=== PATIENT | male | born 1950 | race Caucasian/White ===

== ENCOUNTER 2023-10-27 19:11 | Emergency (ER) | payer MEDICARE, OTHER, SELFPAY ==
[2023-10-27 19:20] VITALS: BP 126/92; PULSE 106; RESP 20; TEMP 37.7; O2SAT 98; BMI 37.3
--- NOTE | 2023-10-27 19:31 | XR_ITS ---
The [address] [address] Patient Name: ZEFERINO GOTTLIEB MRN: [id number] date: 1950 Sex: M Assigned Patient Location: ER Current Patient Location: ER Accession/Order Number: [id number] Exam Date: 10/27/2023 19:40 Report Date: 10/27/2023 20:15 At the request of: MONROE MARKER Procedure: XR chest 2V EXAM: XR chest 2V HISTORY: fever, cough COMPARISON: Chest x-ray 06/18/2021 TECHNIQUE: PA and lateral chest FINDINGS: No pneumothorax. Loculated right apical effusion with scarring at the right lung base. Similar appearance of a hilar mass on the right. Linear opacity in the left upper lobe may reflect atelectasis or infectious process. Normal heart size. No acute osseous abnormality. Postsurgical changes of the cervical spine. XR/XR chest 2V IMPRESSION: Previously described perihilar mass seen on the right with improved aeration from prior exam. Consider chest CT for further evaluation. A superimposed right mid lung consolidative process cannot be excluded at this location. Small loculated effusion on the right. Linear opacity of the left upper lobe may reflect atelectasis with infection or mass not excluded. Electronically authenticated by: MAGNO ANNA Date: 10/27/2023 20:15
--- NOTE | 2023-10-27 19:32 | ED.URI1 ---
HPI - URI/Sore Throat General Chief Complaint: Upper Respiratory Infection Stated Complaint: respiratory, fever Time Seen by Provider: 10/27/23 19:15 Source: patient and family Limitations: no limitations History of Present Illness HPI Narrative: This 72-year-old male who completed treatment for lung cancer approximately one year ago presents for evaluation of one day of fever, cough, nasal congestion. He also has body aches. He has not had any nausea vomiting or diarrhea. He denies any anny chest pain or shortness of breath. He has had the Covid 19 vaccinations but has not had the last booster shot. He recently had the respiratory syncytial virus vaccine and influenza vaccine as well. The patient's states that her brother has respiratory syncytial virus. The patient's symptoms started yesterday. Use Tylenol and Motrin earlier today for his fever and body aches. He has a former history of smoking but is not a current tobacco user. Related Data Home Medications Medication Instructions Recorded Confirmed carvedilol 3.125 mg tablet 3.125 mg PO BID 10/27/23 10/27/23 hydrochlorothiazide 25 mg tablet 25 mg PO DAILY 10/27/23 10/27/23 losartan 25 mg tablet 25 mg PO DAILY 10/27/23 10/27/23 potassium chloride 20 mEq 20 meq PO DAILY 10/27/23 10/27/23 tablet,extended release(part/cryst) (Klor-Con M) simvastatin 80 mg tablet 80 mg PO DAILY 10/27/23 10/27/23 Allergies Allergy/AdvReac Type Severity Reaction Status Date / Time No Known Drug Allergies Allergy Verified 10/27/23 19:20 Review of Systems ROS Status of ROS 10 or more systems reviewed and unremarkable except as noted in history and below [facility] Social History Smoking status: Former smoker Exam Narrative Exam Narrative: Nurses note and vital signs reviewed and patient is not hypoxic. He is mildly tachycardic with a pulse of 106 and has a low-grade fever at 99.8 General: The patient appears well and in no apparent distress. Patient is resting comfortably on cart. He is speaking in complete sentences. No respiratory distress Skin: Warm, dry, no pallor noted. There is no rash noted. Head: Normocephalic, atraumatic Eye: Normal conjunctiva, no drainage, EOMI. PERRL Ears, Nose, Mouth, and Throat: oral mucosa is moist. Nares patent. Mouth without vesicles, No posterior pharyngeal swelling Neck: Supple, no meningeal signs Cardiovascular: Regular Rate and Rhythm S1 S2, no murmurs, rubs or gallops Respiratory: Patient is in no distress, no accessory muscle use, Coarse breath sounds without rhonchi or rales appreciated no wheezing or accessory muscle usse noted, patient is speaking complete sentences, he is not hypoxic with pulse ox of 98 percent on room air Back: non-tender, no CVA tenderness bilaterally to percussion. GI: Normal bowel sounds, no tenderness to palpation, no masses appreciated. No rebound, guarding, or rigidity noted. Musculoskeletal: The patient has no evidence of calf tenderness, no pitting edema, symmetrical pulses noted bilaterally Neurological: A&O x4, normal speech Psychiatric: Cooperative Constitutional Vital Signs, click to edit/add: Last Vital Signs Temp 99.8 F 10/27/23 19:20 Pulse 106 H 10/27/23 19:20 Resp 20 10/27/23 19:20 BP 126/92 H 10/27/23 19:20 Pulse Ox 95 10/27/23 20:55 O2 Del Method Room Air 10/27/23 20:55 Course Vital Signs Vital signs: Vital Signs Temperature 99.8 F 10/27/23 19:20 Pulse Rate 106 H 10/27/23 19:20 Respiratory Rate 20 10/27/23 19:20 Blood Pressure 126/92 H 10/27/23 19:20 Pulse Oximetry 98 10/27/23 19:20 Oxygen Delivery Method Room Air 10/27/23 19:20 Temperature 99.8 F 10/27/23 19:20 Pulse Rate 106 H 10/27/23 19:20 Respiratory Rate 20 10/27/23 19:20 Blood Pressure 126/92 H 10/27/23 19:20 Pulse Oximetry 95 10/27/23 20:55 Oxygen Delivery Method Room Air 10/27/23 20:55 MDM - URI/Sore Throat MDM Narrative Medical decision making narrative: 72-year-old male with a history of lung cancer status post radiation and chemotherapy presents for evaluation of one day of fevers, chills, body aches and a cough with white phlegm. He has had COVID and vaccinations. The patient's 's brother is home with respiratory syncytial virus. He has coarse breath sounds but is not hypoxic. He did have a low-grade fever in emergency department and was mildly tachycardic with a pulse of 106. His chest x-ray which is included in the body of this report shows chronic changes with no pneumothorax or large effusion or infiltrate. I gave a copy of the report to the patient. He thinks that the findings on the chest x-ray are related to his history of cancer and radiation therapy. I offered him a CT scan to further elucidate the findings in the x-ray but he declines. His respiratory panel is negative. This was discussed with him. I did suggest that he take another Covid test in 24-48 hours since his symptoms just started and he may test positive at that time. Due to his comorbidities and history of lung cancer he was given a dose of doxycycline in emergency department and will be treated for community-acquired pneumonia/bronchitis with doxycycline. He was given a DuoNeb treatment prior to discharge will be discharged home with doxycycline and albuterol MDI. Medical Records Medical records narrative: [place] [address] XRay Report Signed Patient: ZEFERINO GOTTLIEB MR#: [id number] : 1950 Acct:[id number] Age/Sex: 72 / M ADM Date: 10/27/23 Loc: ER Attending Dr: Ordering Physician: Mayuri Alba Date of Service: 10/27/23 Procedure(s): XR chest 2V Accession Number(s): [id number] cc: Mayuri Alba; ENRIQUE MATT ~ The [address] [id number] Patient Name: ZEFERINO GOTTLIEB MRN: [id number] date: 1950 Sex: M Assigned Patient Location: ER Current Patient Location: ER Accession/Order Number: [id number] Exam Date: 10/27/2023 19:40 Report Date: 10/27/2023 20:15 At the request of: MAYURI ALBA Procedure: XR chest 2V EXAM: XR chest 2V HISTORY: fever, cough COMPARISON: Chest x-ray 06/18/2021 TECHNIQUE: PA and lateral chest FINDINGS: No pneumothorax. Loculated right apical effusion with scarring at the right lung base. Similar appearance of a hilar mass on the right. Linear opacity in the left upper lobe may reflect atelectasis or infectious process. Normal heart size. No acute osseous abnormality. Postsurgical changes of the cervical spine. XR/XR chest 2V IMPRESSION: Previously described perihilar mass seen on the right with improved aeration from prior exam. Consider chest CT for further evaluation. A superimposed right mid lung consolidative process cannot be excluded at this location. Small loculated effusion on the right. Linear opacity of the left upper lobe may reflect atelectasis with infection or mass not excluded. Electronically authenticated by: MAGNO ANNA Date: 10/27/2023 20:15 Lab Data Labs: Lab Results 10/27/23 Range/Units 19:30 Adenovirus (PCR) Not detected (NOT DETECTE) C. pneumoniae DNA (PCR) Not detected (NOT DETECTE) Coronavirus Type OC43 Not detected (NOT DETECTE) Coronavirus Type HKU1 Not detected (NOT DETECTE) Coronavirus Type 229E Not detected (NOT DETECTE) Coronavirus Type NL63 Not detected (NOT DETECTE) Human Metapneumovir PCR Not detected (NOT DETECTE) M. pneumoniae (PCR) Not detected (NOT DETECTE) Parainfluenza PCR Not detected (NOT DETECTE) Parainfluenza 2 (PCR) Not detected (NOT DETECTE) Parainfluenza 3 (PCR) Not detected (NOT DETECTE) Parainfluenza 4 (PCR) Not detected (NOT DETECTE) RSV (RT-PCR) Not detected (NOT DETECTE) Entero/Rhino (PCR) Not detected (NOT DETECTE) SARS-CoV-2 (PCR) Not detected (NOT DETECTE) Bordetella pertussis (PCR) Not detected (NOT DETECTE) B parapertussis DNA PCR Not detected (NOT DETECTE) Influenza Type A (PCR) Not detected (NOT DETECTE) Influenza Type B (PCR) Not detected (NOT DETECTE) Discharge Plan Discharge Chief Complaint: Upper Respiratory Infection Clinical Impression: Upper respiratory infection Patient Disposition: Home, Self-Care Time of Disposition Decision: 20:51 Condition: Good Prescriptions / Home Meds: No Action carvedilol 3.125 mg tablet 3.125 mg PO BID hydrochlorothiazide 25 mg tablet 25 mg PO DAILY losartan 25 mg tablet 25 mg PO DAILY potassium chloride [Klor-Con M20] 20 mEq tablet,ER particles/crystals 20 meq PO DAILY simvastatin 80 mg tablet 80 mg PO DAILY Instructions: Upper Respiratory Infection (DC) Stand Alone Forms: Portal Instructions Referrals: ENRIQUE MATT [Primary Care Provider] - 1 week Discharge Date/Time: 10/27/23 21:27
[2023-10-27 19:41] LABS: Adenovirus NOT DETECTED (NOT DETECTE); Bordetella parapertussis NOT DETECTED (NOT DETECTE); Coronavirus 229E NOT DETECTED (NOT DETECTE); Coronavirus HKU1 NOT DETECTED (NOT DETECTE); Coronavirus NL63 NOT DETECTED (NOT DETECTE); Coronavirus OC43 NOT DETECTED (NOT DETECTE); Human Metapneumovirus NOT DETECTED (NOT DETECTE); Human Rhinovirus/Enterovirus NOT DETECTED (NOT DETECTE); Influenza A NOT DETECTED (NOT DETECTE); Influenza B NOT DETECTED (NOT DETECTE); Mycoplasma pneumoniae NOT DETECTED (NOT DETECTE); Parainfluenza Virus 1 NOT DETECTED (NOT DETECTE); Parainfluenza Virus 2 NOT DETECTED (NOT DETECTE); Parainfluenza Virus 3 NOT DETECTED (NOT DETECTE); Parainfluenza Virus 4 NOT DETECTED (NOT DETECTE); Respiratory Syncytial Virus NOT DETECTED (NOT DETECTE); SARS-CoV-2 NOT DETECTED (NOT DETECTE)
[2023-10-27] MEDS: ACETAMINOPHEN 325 MG TABLET 650 MG PO (20:06)
[2023-10-27] MEDS: IBUPROFEN 600 MG TABLET PO (20:07)
[2023-10-27] MEDS: IPRATROPIUM/ALBUTEROL SULFATE 3 ML AMPUL.NEB IH (20:54)
[2023-10-27 20:55] VITALS: O2SAT 95
[2023-10-27] MEDS: DOXYCYCLINE MONOHYDRATE 100 MG CAPSULE PO (21:16)
== END 2023-10-27 21:27 | disposition home or self-care (01) ==
PROVIDERS: Emergency Provider Emergency Medicine; PCP Family Medicine
DX: J06.9 Acute upper respiratory infection, unspecified (principal); R50.9 Fever, unspecified; Z20.822 Contact with and (suspected) exposure to COVID-19; Z87.891 Personal history of nicotine dependence; Z85.118 Personal history of other malignant neoplasm of bronchus and lung; Z79.899 Other long term (current) drug therapy
CPT/HCPCS: 0202U; 71046; 94640; 99283

== ENCOUNTER 2025-04-30 01:28 | Emergency (ER) | payer MEDICARE, OTHER, SELFPAY ==
[2025-04-30] VITALS (17 sets, daily range): BP systolic 115–139; BP diastolic 68–83; PULSE 81–99; TEMP 36.9; O2SAT 91–97; BMI 34.6
--- OUTSIDE RECORDS SUMMARY | 2025-04-30 01:40 | XMS_ITS | Encounter Summary ---
Author Organization [facility] Address [address] [place] [address] Phone Care Team Providers Care Instrumentation Manager Name Role Phone Unavailable Primary Care Provider Unavailabl e Encounter Details Date Type Department Care Team (Late st Contact Info) Description 02/21/2025 Scanned Document [facility] [address] [facility] [address] [place] [address] [place] [address] [address] Department [place] [address] Social History Tobacco Use Types Packs/Day Years Used Date Smoking Tobacco: Former Cigarettes Smokeless Tobacco: Never Sex and Gender Information Value Date Recorded Sex Assigned at Male 03/22/2025 9:35 AM EDT Legal Sex Male 12:31 PM EST Gender Identity Male 03/22/2025 9:35 AM EDT Sexual Orientation Straight 03/22/2025 9: 35 AM EDT COVID-19 Exposure Response Date Recorded In the last 10 days, have yo u been in contact with someone who was confirmed or suspected to have Coronavirus/COVID-19? No / Unsure 01/28/2025 9:13 AM EDT documented as of this encounter Plan of Treatment Upcoming Encounters Date Type Department Care Team (Late st Contact Info) Description 05/14/2025 11:15 AM EDT Telemedicine Clinical Support [facility] [address] [place] [address] Franny Barrett, PATIENT SERVICES MANAGER [address] [address] [facility] [place] [id number] documented as of this encounter Visit Diagnoses Not on filedocumented in this encounter
--- OUTSIDE RECORDS SUMMARY | 2025-04-30 01:41 | XMS_ITS | Encounter Summary ---
Author Organization [facility] Address [address] [place] [address] Care Team Providers Care Loft Rigger Name Role Phone Howie Smith MD Primary Care Provider [phone] Encounter Details Date Type Department Care Team (Late st Contact Info) Description 04/24/2025 External Result Encounter [facility] External Department Unsolicited Natacha Hess MD [address] [place] [address] Social History Tobacco Use Types Packs/Day Years Used Date Smoking Tobacco: Former Cigarettes Q uit: 02/14/2002 Smokeless Tobacco: Never Alcohol Use Standard Drinks/Week Comments Yes 0 (1 standard drink = 0.6 oz pure alcohol) Maybe a glass of wine3 times a year Sex and Gender Information Value Date Recorded Sex Assigned at Not on file Legal Sex Male 11:33 PM EDT Gender Identity Not on file Sexual Orientation Not on file documented as of this encounter Plan of Treatment Not on file documented as of this encounter Procedures Procedure Name Priority Date/Time Associated Diagnosis Comments TOTAL PROTEIN, URINE Routine 04/24/2025 12:50 PM EDT CREATININE, RANDOM URINE Routine 04/24/2025 12:50 PM EDT documented in this encounter Results * TOTAL PROTEIN, URINE (04/24/2025 12:50 PM EDT) TOTAL PROTEIN, URINE 8 0 - 9 mg/dL 04/24/2025 1:38 PM EDT [facility] Other 04/24/2025 12:5 0 PM EDT 04/24/2025 12:56 PM EDT Natacha Hess MD LAB BLOOD ORDERABLES Final Resul t Performing Organization Address [facility] Co de Phone Number [address] [address], [facility] [address] [place] [address] * Creatinine, urine, random (04/24/2025 12:50 PM EDT) CREATININE, URINE (RANDOM) 101.00 mg/dL 04/24/2025 1:38 PM EDT [facility] Comment:No reference range e stablished Other 04/24/2025 12:5 0 PM EDT 04/24/2025 12:56 PM EDT Natacha Hess MD LAB URINE ORDERABLES Final Resul t Performing Organization Address [facility] Co de Phone Number [address] [address], [facility] [address] [place] [address] documented in this encounter Visit Diagnoses Not on filedocumented in this encounter Care Teams Loft Rigger Relationship Specialty Start Date End Date Howie Smith MD [address] [place] [address] PCP - General Family Medicine 10/10/24 documented as of this encounter
--- OUTSIDE RECORDS SUMMARY | 2025-04-30 01:41 | XMS_ITS | Encounter Summary ---
Author Organization [facility] Address [address] [place] [address] Care Team Providers Care Licensed Massage Practitioner Name Role Phone Howie Smith MD Primary Care Provider [phone] Encounter Details Date Type Department Care Team (Late st Contact Info) Description 09/24/2024 External Result Encounter [facility] External Department Unsolicited Natacha Hess MD [address] [place] [address] Social History Tobacco Use Types Packs/Day Years Used Date Smoking Tobacco: Never Assessed Sex and Gender Information Value Date Recorded Sex Assigned at Not on file Legal Sex Male 11:33 PM EDT Gender Identity Not on file Sexual Orientation Not on file documented as of this encounter Plan of Treatment Not on file documented as of this encounter Procedures Procedure Name Priority Date/Time Associated Diagnosis Comments PET/CT SKULL BASE TO MID THIGH 09/24/2024 3:42 PM EST documented in this encounter Results * PET/CT skull base to mid thigh (09/24/2024 3:42 PM EST) Anatomical Region Laterality Modality Body Computed Tomogra phy 09/24/2024 3:42 PM EST Impressions 09/24/2024 3:52 PM EST There is a peripherally FDG avid since the prior mass in the right upper lobe as noted above with hilar, mediastinal, and right supraclavicular lymphadenopathy. There is a nonspecific focus of FDG accumulation within the left gluteal musculature with a maximum SUV of 5.2. Impression dictated by: Carlos Cavanaugh M.D.09/24/2024 3:50 PM Dictation Location: [place] [address] Transcribed By: [facility] 09/24/24 1550 Dictated By: Carlos Cavanaugh II, MD 09/24/24 1542 Signed By: <Electronically signed by Carlos Cavanaugh II, MD in OV> 09/24/24 1550 Narrative 09/24/2024 3:52 PM [facility] [place] [place] [address] Nuclear Medicine Report Signed Patient: Bert Yeung MR#: [id number] 45 : 1950 Acct:[id number] Age/Sex: 73 / M ADM Date: 09/24/24 Loc: Room: Type: [facility] Attending Dr: Natacha Hess MD Copies to: MD Carlos Garner II, MD Ordering Provider: Natacha Hess MD Date of Service: 09/24/24 PET/PET tumor subq tx strat sb-mt: abnormal CT PET tumor subq tx strat sb-mt 09/24/2024 12:54 PM SIGNS AND SYMPTOMS: Lung mass, history of lung cancer PROTOCOL: PET images were obtained from skull base to mid thigh after intravenous radiotracer administration. Low-dose CT was obtained from skull base to mid thigh. After attenuation correction of PET images, fused PET CT images were generated and reconstructed in axial, sagittal, and coronal planes. COMPARISON: 09/10/2024 RADIOPHARMACEUTICAL: 12.18 mCi of intravenous fluorine 18 FDG Blood glucose: 102 mg/dL FINDINGS: There is an FDG avid lymph node in the right supraclavicular region measuring 15 mm in shortest axis. There is a maximum SUV of 4.0. There is a peripherally FDG avid 4.7 cm mass suggesting a necrotic mass within the right upper lobe. There is a maximum SUV of 9.5. FDG avid lymph nodes are noted in the mediastinum suggesting no metastatic disease with a maximum SUV of 5.7. Smaller FDG avid lymph nodes are noted in the left hilum with a maximum SUV of 4.1. There is a nonspecific focus of FDG accumulation within the left gluteal musculature with a maximum SUV of 5.2. There is physiologic radiotracer accumulation in the brain, salivary glands, myocardium, liver, bowel, kidneys, ureters, and bladder. PET/PET tumor subq tx strat sb-mt Procedure Note Carlos Cavanaugh MD - 09/24/2024 [facility] [address] [place] [address] [place] [address] Nuclear Medicine Report Signed Patient: Bert Yeung AMR#: [id number] [birth year] : 3Acct:[id number] Age/Sex: 73 / MADM Date: 09/24/24 Loc: Room:Type: [facility] Attending Dr: Natacha Hess MD Copies to: MD Carlos Garner II, MD Ordering Provider: Natacha Hess MD Date of Service: 09/24/24 PET/PET tumor subq tx strat sb-mt: abnormal CT PET tumor subq tx strat sb-mt 09/24/2024 12:54 PM SIGNS AND SYMPTOMS: Lung mass, history of lung cancer PROTOCOL: PET images were obtained from skull base to mid thigh afterintravenous radiotracer administration. Low-dose CT was obtained from skull base to mid thigh.After attenuation correction of PET images, fused PET CT images were generated andreconstructed in axial, sagittal, and coronal planes. COMPARISON: 09/10/2024 RADIOPHARMACEUTICAL: 12.18 mCi of intravenous fluorine 18 FDG Blood glucose: 102 mg/dL FINDINGS: There is an FDG avid lymph node in the right supraclavicular regionmeasuring 15 mm in shortest axis. There is a maximum SUV of 4.0. There is a peripherally FDG avid 4.7 cm mass suggesting a necrotic masswithin the right upper lobe. There is a maximum SUV of 9.5. FDG avid lymph nodes are noted in the mediastinum suggesting no metastaticdisease with a maximum SUV of 5.7. Smaller FDG avid lymph nodes are noted in the left hilum with a maximumSUV of 4.1. There is a nonspecific focus of FDG accumulation within the left glutealmusculature with a maximum SUV of 5.2. There is physiologic radiotracer accumulation in the brain, salivaryglands, myocardium, liver, bowel, kidneys, ureters, and bladder. PET/PET tumor subq tx strat sb-mt IMPRESSION: There is a peripherally FDG avid since the prior mass in the right upperlobe as noted above with hilar, mediastinal, and right supraclavicular lymphadenopathy. There is a nonspecific focus of FDG accumulation within the left glutealmusculature with a maximum SUV of 5.2. Impression dictated by: Carlos Cavanaugh M.D.09/24/2024 3:50 PM Dictation Location: [place] [address] Transcribed By: [facility] 09/24/24 1550 Dictated By: Carlos Cavanaugh II, MD 09/24/24 1542 Signed By: <Electronically signed by Carlos Cavanaugh II, MD inOV> 09/24/24 1550 Natacha Hess MD IMG CT PROCEDURES Final Result documented in this encounter Visit Diagnoses Not on filedocumented in this encounter Care Teams Licensed Massage Practitioner Relationship Specialty Start Date End Date Howie Smith MD [address] [place] [address] PCP - General Family Medicine 10/10/24 documented as of this encounter
--- OUTSIDE RECORDS SUMMARY | 2025-04-30 01:41 | XMS_ITS | Encounter Summary ---
Author Organization [facility] Address [address] [place] [address] Care Team Providers Care Sales Management Intern Name Role Phone Howie Smith MD Primary Care Provider Reason for Visit * Reason Comments Med Refill Encounter Details Date Type Department Care Team (Late st Contact Info) Description 02/03/2025 Refill [facility] [place] [address] [place] [address] Trinity Rockwell MD [address] [place] [address] LPRD (laryngopharyngeal reflux disease) Social History Tobacco Use Types Packs/Day Years [...] on file documented as of this encounter Visit Diagnoses Diagnosis LPRD (laryngopharyngeal reflux disease) Acute laryngitis, without mention of obstruction documented in this encounter Care Teams Sales Management Intern Relationship Specialty Start Date End Date Howie Smith MD [address] [place] [address] PCP - General Family Medicine 10/10/24 documented as of this encounter
--- OUTSIDE RECORDS SUMMARY | 2025-04-30 01:41 | XMS_ITS | Clinical Summary ---
Author Organization [facility] Address [address] [place] [address] Phone Care Team Providers Care Computer System Specialist Name Role Phone Unavailable Primary Care Provider Unavailabl e Allergies No known active allergies Medications carvedilol (Coreg) 3.125 mg tablet Take 1 tablet (3.125 mg) by mouth 2 times a day. Active cholecalciferol (Vitamin D-3) 50 mcg (2,000 unit) capsule Take 1 capsule (2,000 Units) by mouth once daily. Active famotidine (Pepcid) 20 mg tablet Take 1 tablet (20 mg) by mouth once daily at bedtime. 11/05/2024 Active hydroCHLOROthia zide (HYDRODiuril) 25 mg tablet Take 1 tablet (25 mg) by mouth once daily. Active losartan (Cozaar) 25 mg tablet Take 1 tablet (25 mg) by mouth once daily. Active omeprazole (PriLOSEC) [address] capsule Take 1 capsule (40 mg) by mouth. 11/05/2024 Active ramucirumab (Cyramza) 10 mg/mL solution Infuse into a venous catheter. Active simvastatin (Zocor) 80 mg tablet Take 1 tablet (80 mg) by mouth once daily at bedtime. Active sulfamethoxazol e-trimethoprim (Bactrim) 400-80 mg tabletIndicatio ns:Ulcerative laryngitis Take 1 tablet by mouth 2 times a day for 14 days. 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 Lung cancer (Multi) 01/21/2025 Overview (01/28/2025): Was found Malignant neoplasm of overla pping sites of right lung (Multi) 10/17/2024 Poor venous access 10/17/2024 Venous insufficiency 10/17/2024 Myelopathy, spondylogenic, cervical 08/28/2013 Encounters Date Type Department Care Team Description 04/15/2025 11:45 AM EDT Office Visit [facility] [address] [place] [address] Rojelio Pablo MD Voice fatigue (Primary Dx); Ulcerative laryngitis; Dysphonia; Muscle tension dysphonia; Voice hoarseness; Other voice and resonance disorders 04/15/2025 Travel 04/10/2025 Travel 03/22/2025 10:41 AM EDT Anesthesia Event [facility] [place] [address] [place] [address] Howie Baez MD 03/22/2025 10:15 AM EDT - 03/22/2025 11:45 AM EDT Surgery [facility] [place] [address] [place] [address] Rojelio Pablo MD Microdirect Laryngoscop; KTP Laser; Biopsy; Injection [95264 (CPT ) +4 more] 03/22/2025 8:53 AM EDT - 03/22/2025 1:23 PM EDT Hospital Encounter [facility] [place] [address] [place] [address] Rojelio Pablo MD Ulcerative laryngitis; Leukoplakia of larynx Discharge Disposition: Home 03/22/2025 Travel 03/22/2025 Abstract [facility] [address] [place] [address] Rojelio Pablo MD 02/21/2025 Scanned Document [facility] [address] [place] [address] Rojelio Pablo MD 02/21/2025 Scanned Document [facility] [address] [place] [address] Rojelio Pablo MD 02/21/2025 Scanned Document [facility] [address] [place] [address] Rojelio Pablo MD 02/07/2025 Orders Only [address] [place] [address] Edwige Alonso, RN Ulcerative laryngitis; Leukoplakia of larynx 01/28/2025 9:15 AM EDT Office Visit [address] [place] [address] Rojelio Pablo MD Ulcerative laryngitis (Primary Dx); Chronic fungal laryngitis; Pre-operative clearance; Presbylarynges; Dysphonia; Voice hoarseness; Muscle tension dysphonia; Does not use respiratory support for voice; Malignant neoplasm of right lung, unspecified part of lung (Multi) 01/28/2025 Travel from Last 3 Months Social History Tobacco Use Types Packs/Day Years Used Date Smoking Tobacco: Former Cigarettes Passive Smoke Exposure: Never Smokeless Tobacco: Never Tobacco Cessation:Counseling Given: Not Answered Alcohol Use Standard Drinks/Week Comments Not Currently 0 (1 standard drink = 0.6 oz pur e alcohol) Sex and Gender Information Value Date Recorded [...] suspected to have Coronavirus/COVID-19? No / Unsure 04/15/2025 11:38 AM EDT Last Filed Vital Signs Vital Sign Reading Time Taken Comments Blood Pressure 123/72 04/15/2025 11:44 AM EDT Pulse 89 03/22/2025 12:45 PM EDT Temperature 36.5 C (97.7 F) 04/15/2025 11:44 AM EDT Respiratory Rate 20 03/22/2025 12:45 PM EDT Oxygen Saturation 100% 03/22/2025 12:45 PM EDT Inhaled Oxygen Concentration - - Weight 110 kg (241 lb 10 oz) 04/15/2025 11:44 AM EDT Height 177.8 cm (5' 10 ) 04/15/2025 11:44 AM EDT Body Mass Index 34.67 04/15/2025 11:44 AM EDT Plan of Treatment Upcoming Encounters Date Type Department Care Team (Late st Contact Info) Description 05/14/2025 11:15 AM EDT Telemedicine Clinical Support [facility] [address] [place] [address] Franny Barrett, CONSUMER AFFAIRS MANAGER [address] Department [place] [address] Health Maintenance Due Date Last Done Comments CT Colonography 1950 Colonoscopy 1950 Colorectal Cancer Screening 1950 FIT-DNA (Cologuard) 1950 FIT 1950 Lipid Panel 1950 Medicare Annual Wellness Visit (AWV) 1950 Sigmoidoscopy 1950 Diabetes Screening 1970 Hepatitis C Screening 1970 Zoster Vaccines (2 of 3) 11/30/2014 10/05/2014 Abdominal Aortic Aneurysm (AAA) Screening 2017 COVID-19 Vaccine (3 - season) 2024 03/30/2022, 06/30/2021 DTaP/Tdap/Td Vaccines (2 - Td or Tdap) 10/21/2025 10/21/2015 RSV High Risk: (Elderly (60+) or Population) Completed 10/12/2023 Influenza Vaccine Completed 10/05/2024, , 08/17/2021, Additional history exists Pneumococcal Vaccine Completed 10/05/2024, 06/09/2020, 09/06/2018, Additional history exists HIB Vaccines Aged Out No longer eligi ble based on patient's age to complete this topic HPV Vaccines Aged Out No longer eligi ble based on patient's age to complete this topic Hepatitis A Vaccines Aged Out No long er eligible based on patient's age to complete this topic Hepatitis B Vaccines Aged Out No long er eligible based on patient's age to complete this topic IPV Vaccines Aged Out No longer eligi ble based on patient's age to complete this topic Meningococcal Vaccine Aged Out No hanna hillary eligible based on patient's age to complete this topic Rotavirus Vaccines Aged Out No longer eligible based on patient's age to complete this topic Medical Devices Implanted Type Area Driller'S Offsider Device Identifier Shelf Expiration Date Model / Serial / Lot Implant, Sanchezaryn Plus, 1cc Injectable - [id number] - [id number] Implanted:Qty: 1 on 03/22/2025 by Rojelio Pablo MD at [facility] ENT Implant N/A: Throat [employer] 08/02/2025 [id number] / [id number] / [id number] Procedures Procedure Name Priority Date/Time Associated Diagnosis Comments PULSE OXIMETRY, CONTINUOUS Routine 03/22/2025 11:57 AM EDT SURGICAL PATHOLOGY EXAM Routine 03/22/2025 11:26 AM EDT Ulcerative laryngitis Leukoplakia of larynx WY AN ELECTIVE ENDOTRACHEAL AIRWAY Routine 03/22/2025 10:50 AM EDT WY LARGSC EXC JONATAN&/STRPG CORDS/EPIGL MCRSCP/TLSCP 03/22/2025 10:28 AM EDT Ulcerative laryngitis Leukoplakia of larynx Special Needs [facility] ENT Microscope; Standard Bed; Supine; KTP Laser; Fortec: [id number] WY LARYNGOSCOPY W/BIOPSY MICROSCOPE/TELESCOP E 03/22/2025 10:28 AM EDT Ulcerative laryngitis Leukoplakia of larynx Special Needs [facility] E[facility] Microscope; Standard Bed; Supine; KTP Laser; Fortec: [id number] WY LARGSC W/NJX VOCAL CORD THER W/MICRO/TELESCOPE 03/22/2025 10:28 AM EDT Ulcerative laryngitis Leukoplakia of larynx Special Needs [facility] E[facility] Microscope; Standard Bed; Supine; KTP Laser; Fortec: [id number] WY BRNCHSC INCL FLUOR GDNCE DX W/CELL WASHG SPX 03/22/2025 10:28 AM EDT Ulcerative laryngitis Leukoplakia of larynx Special Needs [facility] E[facility] Microscope; Standard Bed; Supine; KTP Laser; Fortec: [id number] WY LARYNGOSCOPY W/WO TRACHEOSCOPY W/MICRO/TELESCOPE 03/22/2025 10:28 AM EDT Ulcerative laryngitis Leukoplakia of larynx Special Needs [facility] ENT Microscope; Standard Bed; Supine; KTP Laser; Fortec: [id number] from Last 3 Months Results * Surgical Pathology Exam (03/22/2025 11:26 AM EDT) Case Report Surgical Pathology Case: [id number] Authorizing Provider: Rojelio Pablo MD Collected: 03/22/2025 1126 Ordering Location: [facility] OR Received: 03/22/2025 1431 Pathologist: Narciso Bedoya DDS Specimens: A) - VOCAL CORD BIOPSY LEFT, LEFT VOCAL CORD LESION B) - VOCAL CORD BIOPSY LEFT, MID LEFT VOCAL CORD - INFERIOR 04/01/2025 4:[address] [facility] FINAL DIAGNOSIS A. Vocal cord, left lesion, excision: - Squamous mucosa with atypia (favor reactive) and underlying fibrosis, negative for high-grade dysplasia. B. Vocal cord, left mid inferior, excision: - Squamous mucosa with atypia (favor reactive) and underlying fibrosis, negative for high-grade dysplasia. 04/01/2025 4:[address] [facility] at 1601 EDT By the signature on this report, the individual or group listed as making the Final Interpretatio n/Diagnosis certifies that they have reviewed this case. 04/01/2025 4:[address] [facility] Clinical History Pre-op diagnosis: Ulcerative laryngitis [J04.0] Leukoplakia of larynx [J38.7] 04/01/2025 4:01 PM EDT [facility] Gross Description A: Received in formalin, labeled with the patient's name and hospital number and left vocal cord lesion , is a fragment of mccormack, soft tissue measuring 1.0 x 0.3 x 0.1 cm. The specimen is submitted in toto in one cassette. MKM B: Received in formalin, labeled with the patient's name and hospital number and mid left vocal cord , is a fragment of mccormack-white, soft tissue measuring 0.3 x 0.1 x 0.1 cm. The specimen is submitted in toto in one cassette. MKM 04/01/2025 4:[address] [facility] Tissue (VOCAL CORD BIOPSY LEFT) 03/22/2025 11:26 AM EDT 03/22/2025 2:31 PM EDT Comment:Pre-op diagnosis: Ulcerative laryngitis [J04.0] Leukoplakia of larynx [J38.7] Tissue specimen (specimen) (VOCAL CORD BIOPSY LEFT) 03/22/2025 11:33 AM EDT 03/22/2025 2:31 PM EDT Comment:Pre-op diagnosis: Ulcerative laryngitis [J04.0] Leukoplakia of larynx [J38.7] us Rojelio Pablo MD LAB PATHOLOGY ORDERABLES Aishwarya mei Result Performing Organization Address City/State/[facility] Co de Phone Number [facility] [address] [place] [phone] [facility] [place] [address] * W[place] AN ELECTIVE ENDOTRACHEAL AIRWAY (03/22/2025 10:50 AM EDT) Narrative Дмитрий Medley CAA - 03/22/2025 10:50 AM EDT STEVEN Rivera 03/22/2025 10:51 AM Airway Date/Time: 03/22/2025 10:50 AM Reason: elective Staffing Performed: STEVEN Authorized by: Howie Baez MD Performed by: STEVEN Rivera Patient location during procedure: OR Patient Condition Indications for airway management: anesthesia and airway protection Patient position: sniffing Planned trial extubation Sedation level: deep Final Airway Details Preoxygenated: yes Final airway type: endotracheal airway Successful airway: ETT and laser tube Cuffed: yes Successful intubation technique: video laryngoscopy Adjuncts used in placement: intubating stylet Blade: Mahendra Blade size: #3 ETT size (mm): 5.0 Cormack-Lehane Classification: grade I - full view of glottis Placement verified by: chest auscultation and capnometry Measured from: teeth ETT to teeth (cm): 22 Number of attempts at approach: 1 us Howie Baez MD ANESTHESIA ORDERABLES Edited R esult - Final from Last 3 Months Insurance MEDICARE PART A AND B [employer] [place] MEDICARE SUPPLEMENT MEDICARE PART A AND B [employer] [place] MEDICARE SUPPLEMENT Advance Directives For more information, please contact: [phone] (Available ) * Full Code (Latest Code Status on File) Date Activated Date Inactivated Comments 03/22/2025 9:38 AM Question Answer Comments Plan of Care: Code Status Discussion Not Compl eted Decision Maker: Provider Rationale: Patient condition does not warra nt discussion
--- OUTSIDE RECORDS SUMMARY | 2025-04-30 01:41 | XMS_ITS | Encounter Summary ---
Author Organization [facility] Address [address] [place] [address] Care Team Providers Care Tool Grinding Technician Name Role Phone Howie Smith MD Primary Care Provider [phone] Encounter Details Date Type Department Care Team (Late st Contact Info) Description 01/04/2025 External Result Encounter [facility] External Department Unsolicited Natacha Hess MD [address] [place] [address] Social History Tobacco Use Types [...] Procedure Name Priority Date/Time Associated Diagnosis Comments IR PORTOGRAM WO PRESSURE MEASUREMENT 01/04/2025 1:50 PM EST documented in this encounter Results * IR PORTOGRAM WO PRESSURE MEASUREMENT (01/04/2025 1:50 PM EST) Anatomical Region Laterality Modality Radiographic Cindi ging 01/04/2025 1:50 PM EST Impressions 01/04/2025 2:36 PM EST fibrous sheath of the tip of the Grdmaf-v-Sqpp. No fracture or kinking. Adequate blood return in supine position. Impression dictated by: Joesph Cleary M.D.01/04/2025 2:33 PM Dictation Location: [place] [address] Transcribed By: [facility] 01/04/25 1433 Dictated By: Joesph Cleary DO 01/04/25 1350 Signed By: <Electronically signed by Joesph Cleary DO in OV> 01/04/25 1433 Narrative 01/04/2025 2:36 PM [facility] Main [place] [id number] Fluoroscopy Report Signed Patient: Bert Yeung MR#: [id number] 47 : 1950 Acct:[id number] Age/Sex: 74 / M ADM Date: 01/04/25 Loc: XT Room: Type: [facility] Attending Dr: Natacha Hess MD Copies to: Natacha Hess MD Ordering Provider: Natacha Hess MD Date of Service: 01/04/25 FL/FL inj w/fluoro eval cv device: no blood return port Fluoroscopic assessment for evaluation of Fruxcz-j-Afay with a contrast injection HISTORY: Intermittent difficulty with blood return from Suigmo-r-Ckkp for one month duration. 5 image was obtained. Cumulative Air Kerma in mGy: 7.97 mGy A total of 10 cc of Isovue-300 was utilized. There is adequate contrast opacification of the catheter with adequate emptying into the superior vena cava. Fiber sheath may be present in the distal tibia. Adequate blood return and supine position. FL/FL inj w/fluoro eval cv device Procedure Note Radiology, Radiologist, MD - 01/04/2025 [place] [id number] Fluoroscopy Report Signed Patient: Bert Yeung AMR#: [id number] 47 : 1950cct:[id number] Age/Sex: 74 / MADM Date: 01/04/25 Loc: XT Room:Type: [facility] Attending Dr: Natacha Hess MD Copies to: Natacha Hess MD Ordering Provider: Natacha Hess MD Date of Service: 01/04/25 FL/FL inj w/fluoro eval cv device: no bloodreturn port Fluoroscopic assessment for evaluation of Tajyht-s-Dgvd with a contrastinjection HISTORY: Intermittent difficulty with blood return from Ztbnbn-s-Sqlg forone month duration. 5 image was obtained. Cumulative Air Kerma in mGy: 7.97 mGy A total of 10 cc of Isovue-300 was utilized. There is adequate contrastopacification of the catheter with adequate emptying into the superior vena cava. Fiber sheathmay be present in the distal tibia. Adequate blood return and supine position. FL/FL inj w/fluoro eval cv device IMPRESSION: fibrous sheath of the tip of the Esmqal-c-Vaib. No fracture or kinking.Adequate blood return in supine position. Impression dictated by: Joesph Cleary M.D.01/04/2025 2:33 PM Dictation Location: [facility] Transcribed By: [facility] 01/04/25 1433 Dictated By: Joesph Cleary DO 01/04/25 1350 Signed By: <Electronically signed by Joesph Cleary DO in OV> 01/04/25 1433 us Natacha Hess MD IMG XR PROCEDURES Final Result documented in this encounter Visit Diagnoses Not on filedocumented in this encounter Care Teams Tool Grinding Technician Relationship Specialty Start Date End Date Howie Smith MD [address] [place] [address] PCP - General Family Medicine 10/10/24 documented as of this encounter
--- OUTSIDE RECORDS SUMMARY | 2025-04-30 01:41 | XMS_ITS | Encounter Summary ---
Author Organization [facility] Address [address] [place] [address] Care Team Providers Care Emt Driver Name Role Phone Howie Smith MD Primary Care Provider Encounter Details Date Type Department Care Team (Late st Contact Info) Description 04/23/2025 External Result Encounter [facility] External Department Unsolicited Natacha Hess MD [address] [place] [address] Social History Tobacco Use Types [...] Procedure Name Priority Date/Time Associated Diagnosis Comments CBC WITH AUTO DIFFERENTIAL STAT 04/23/2025 2:55 PM EDT documented in this encounter Results * (ABNORMAL) CBC auto differential (04/23/2025 2:55 PM EDT) WBC 10.2 4.1 - 10.5 10*3/uL 04/23/2025 3:10 PM EDT [facility] UNCORRECTED WHITE BLOOD COUNT 10.2 4.1 - 10.5 10*3/uL 04/23/2025 3:10 PM EDT [facility] RBC 5.04 3.90 - 5.60 10*6/uL 04/23/2025 3:10 PM EDT [facility] HEMOGLOBIN 14.3 13.0 - 17.0 g/dL 04/23/2025 3:10 PM EDT [facility] HEMATOCRIT 42.6 38.8 - 50.0 % 04/23/2025 3:10 PM EDT [facility] MCV 84.6 83.5 - 101 fL 04/23/2025 3:10 PM EDT [facility] MCH 28.4 27.5 - 35.2 pg 04/23/2025 3:10 PM EDT [facility] MCHC 33.5 32.5 - 35.6 g/dL 04/23/2025 3:10 PM EDT [facility] RED CELL DISTRIBUTION WIDTH, RDW 20.1(H) 12.0 - 14.8 % 04/23/2025 3:10 PM EDT [facility] PLATELET COUNT 368 150 - 450 10*3/uL 04/23/2025 3:10 PM EDT [facility] MEAN PLATELET VOLUME, MPV 7.2 6.6 - 10.1 fL 04/23/2025 3:10 PM EDT [facility] NEUTROPHILS, % 64.7 . % 04/23/2025 3:10 PM EDT [facility] LYMPHOCYTES, % 20.4 . % 04/23/2025 3:10 PM EDT [facility] MONOCYTE/MACROPHA GE, % 13.6 . % 04/23/2025 3:10 PM EDT [facility] EOSINOPHILS, % 1.0 . % 04/23/2025 3:10 PM EDT [facility] BASOPHILS, % 0.3 . % 04/23/2025 3:10 PM EDT [facility] NRBC 0.1 0 - 0.5 /100{WBC} 04/23/2025 3:10 PM EDT [facility] NEUTROPHILS 6.6 1.8 - 7.7 10*3/uL 04/23/2025 3:10 PM EDT [facility] LYMPHOCYTES 2.1 1.00 - 4.8 10*3/uL 04/23/2025 3:10 PM EDT [facility] MONOCYTES 1.4(H) 0.0 - 0.8 10*3/uL 04/23/2025 3:10 PM EDT [facility] EOSINOPHILS 0.1 0.0 - 0.45 10*3/uL 04/23/2025 3:10 PM EDT [facility] BASOPHILS 0.0 0.0 - 0.2 10*3/uL 04/23/2025 3:10 PM EDT [facility] Blood (Blood) 04/23/2025 2:5 5 PM EDT 04/23/2025 3:04 PM EDT us Natacha Hess MD LAB BLOOD ORDERABLES Final Resul t [facility] [address] [place] [address], [place] [address] [place] [address] documented in this encounter Visit Diagnoses Not on filedocumented in this encounter Care Teams Emt Driver Relationship Specialty Start Date End Date Howie Smith MD [address] [place] [address] PCP - General Family Medicine 10/10/24 documented as of this encounter
--- OUTSIDE RECORDS SUMMARY | 2025-04-30 01:41 | XMS_ITS | Encounter Summary ---
Author Organization [facility] Address [address] [place] [address] Phone Care Team Providers Care Media Production Operator Name Role Phone Unavailable Primary Care Provider Unavailabl e Encounter Details Date Type Department Care Team (Late st Contact Info) Description 02/21/[address] [facility] [address] [facility] [address] [place] [address] [place] [address] [place] [address] Social History Tobacco Use Types Packs/Day Years [...] 05/14/2025 11:15 AM EDT Telemedicine Clinical Support [facility] [address] [place] [address] Franny Barrett, ADULT SERVICES LIBRARIAN [address] [facility] [place] [id number] documented as of this encounter Visit Diagnoses Not on filedocumented in this encounter
--- OUTSIDE RECORDS SUMMARY | 2025-04-30 01:41 | XMS_ITS | Encounter Summary ---
Author Organization [facility] Address [address] [place] [address] Care Team Providers Care Hand Molder Name Role Phone Howie Smith MD Primary Care Provider [phone] Encounter Details Date Type Department Care Team (Late st Contact Info) Description 04/23/2025 External Result Encounter [facility] External Department Unsolicited Natacha Hess MD [address] [place] [address] Social History Tobacco Use Types [...] Procedure Name Priority Date/Time Associated Diagnosis Comments COMPREHENSIVE METABOLIC PANEL STAT 04/23/2025 2:55 PM EDT documented in this encounter Results * Comprehensive metabolic panel (04/23/2025 2:55 PM EDT) Glucose 92 70 - 100 mg/dL 04/23/2025 3:28 PM EDT [facility] Comment: Random Glucose Reference Range is dependent on time and content of last meal. Glucose of more than 200 mg/dL in a nonstressed, ambulatory subject supports the diagnosis of Diabetes Mellitus. ADA recommended reference range BUN 11 7 - 25 mg/dL 04/23/2025 3:28 PM EDT [facility] CREATININE 1.02 0.70 - 1.30 mg/dL 04/23/2025 3:28 PM EDT [facility] ESTIMATED GFR >60.0 mL/Min 04/23/2025 3:28 PM EDT [facility] Sodium 137 136 - 145 mmol/L 04/23/2025 3:28 PM EDT [facility] Potassium, Bld 4.3 3.5 - 5.1 mmol/L 04/23/2025 3:28 PM EDT [facility] Chloride 104 98 - 107 mmol/L 04/23/2025 3:28 PM EDT [facility] Carbon Dioxide 26.0 21.0 - 31.0 mmol/L 04/23/2025 3:28 PM EDT [facility] Anion Gap 11.3 6.0 - 15.0 meq/L 04/23/2025 3:28 PM EDT [facility] Calcium 9.5 8.6 - 10.3 mg/dL 04/23/2025 3:28 PM EDT [facility] TOTAL PROTEIN 7.0 6.4 - 8.9 g/dL 04/23/2025 3:28 PM EDT [facility] ALBUMIN LEVEL 3.9 3.5 - 5.7 g/dL 04/23/2025 3:28 PM EDT [facility] GLOBULIN 3.1 g/dL 04/23/2025 3:28 PM EDT [facility] ALBUMIN/GLOBULIN RATIO 1.3 04/23/2025 3:28 PM EDT [facility] BILIRUBIN,TOTAL 0.4 0.3 - 1.0 mg/dL 04/23/2025 3:28 PM EDT [facility] ASPARTATE AMINO TRANSFERASE 20 13 - 39 U/L 04/23/2025 3:28 PM EDT [facility] ALANINE AMINOTRANSFERASE 20 7 - 52 U/L 04/23/2025 3:28 PM EDT [facility] ALKALINE PHOSPHATASE 54 34 - 104 U/L 04/23/2025 3:28 PM EDT [facility] CREATININE [facility]LR [facility] 81.38 04/23/2025 3:28 PM EDT [facility] Other Topography unknown / Unknown 04/23/2025 2:55 PM EDT 04/23/2025 3:04 PM EDT Natacha Hess MD LAB BLOOD ORDERABLES Final Resul t Performing Organization Address City/State/[facility] Co de Phone Number [facility] [address] [place] [address], [facility] [address] [place] [address] documented in this encounter Visit Diagnoses Not on filedocumented in this encounter Care Teams Hand Molder Relationship Specialty Start Date End Date Howie Smith MD [address] [place] [address] PCP - General Family Medicine 10/10/24 documented as of this encounter
--- OUTSIDE RECORDS SUMMARY | 2025-04-30 01:41 | XMS_ITS | Encounter Summary ---
Author Organization [facility] Address [address] [place] [address] Care Team Providers Care Sustainment Logistics Analyst Name Role Phone Howie Smith MD Primary Care Provider [phone] Encounter Details Date Type Department Care Team (Late st Contact Info) Description 05/02/2023 External Result Encounter [facility] External Department Unsolicited Natacha Hess MD [address] [place] [address] Social History Tobacco Use Types [...] Procedure Name Priority Date/Time Associated Diagnosis Comments CT CHEST W IV CONTRAST 05/02/2023 2:00 PM EDT documented in this encounter Results * CT chest w IV contrast (05/02/2023 2:00 PM EDT) Anatomical Region Laterality Modality Body, Chest Computed Tomogra phy 05/02/2023 2:00 PM EDT Impressions 05/02/2023 2:[address] evidence of progression of disease. Overall, no significant change in chest findings compared to the prior study. Impression dictated by: Crescencio Blanca Jr. DAnselmoOAnselmo05/02/2023 2:05 PM Dictation Location: [place] [address] Transcribed By: PWS 05/02/23 1405 Dictated By: Crescencio Blanca Jr, DO 05/02/23 1400 Signed By: <Electronically signed by Crescencio Blanca Jr, DO in OV> 05/02/23 1405 Narrative 05/02/2023 2:58 PM EDT [facility] Main [address] [address] [address] Scan Report Signed Patient: Bert Yeung MR#: [id number] [birth year] : 1950 Acct:[id number] Age/Sex: 72 / M ADM Date: 05/02/23 Loc: XT Room: Type: [facility] RCR Attending Dr: Natacha Hess MD Copies to: Natacha Hess MD Ordering Provider: Natacha Hess MD Date of Service: 05/02/23 CT/CT chest w con: restaging CT CHEST WITH INTRAVENOUS CONTRAST: CLINICAL HISTORY: Follow-up small cell lung cancer. Former smoker with asbestos exposure. COMPARISON: CT chest 02/01/2023 TECHNIQUE: Spiral images were obtained through the chest following intravenous administration of IV contrast. This CT exam was performed using one or more following dose reduction techniques: Automated exposure control, adjustment of the mA and/or kV according to patient size, or use of iterative reconstruction technique. FINDINGS: Mediastinum:Thoracic aorta appears normal in caliber. Pulmonary trunk appears nondilated. No pleural effusion. Partially calcified mediastinal lymph nodes. The esophagus is grossly un remarkable. Lungs:Once again demonstrated are presumed posttreatment changes involving both lungs most prominent involving the right upper lobe similar configuration to the prior study. There is associated volume loss and small loculated right pleural effusion. No new consolidation, pneumothorax or left-sided pleural effusion. No measurable mass. Abd:No acute findings. Cystic changes involving the kidneys. Staghorn type calculus involving the left kidney without obstruction. Subcentimeter low attenuating lesion adjacent to the gallbladder fossa 2 small for accurate characterization is unchanged from prior study. Soft tissues/Bones: Visualized soft tissues demonstrate no acute findings. Osseous structures demonstrate degenerative change. No aggressive bony lesions. CT/CT chest w con Procedure Note Radiology, Radiologist, - 05/02/2023 [facility] Main [place] [address] [place] [address] CT Scan Report Signed Patient: Bert Yeung AMR#: [id number] 47 : 3Acct:[id number] Age/Sex: 72 / MADM Date: 05/02/23 Loc: XT Room:Type: [facility] RCR Attending Dr: Natacha Hess MD Copies to: Natacha Hess MD Ordering Provider: Natacha Hess MD Date of Service: 05/02/23 CT/CT chest w con: restaging CT CHEST WITH INTRAVENOUS CONTRAST: CLINICAL HISTORY: Follow-up small cell lung cancer. Former smoker withasbestos exposure. COMPARISON: CT chest 02/01/2023 TECHNIQUE: Spiral images were obtained through the chest followingintravenous administration of IV contrast. This CT exam was performed using one or more following dosereduction techniques: Automated exposure control, adjustment of the mA and/or kV according topatient size, or use of iterative reconstruction technique. FINDINGS: Mediastinum:Thoracic aorta appears normal in caliber. Pulmonary trunkappears nondilated. No pleural effusion. Partially calcified mediastinal lymph nodes. Theesophagus is grossly un remarkable. Lungs:Once again demonstrated are presumed posttreatment changes involvingboth lungs most prominent involving the right upper lobe similar configuration to the prior study.There is associated volume loss and small loculated right pleural effusion. No new consolidation,pneumothorax or left-sided pleural effusion. No measurable mass. Abd:No acute findings. Cystic changes involving the kidneys. Staghorntype calculus involving the left kidney without obstruction. Subcentimeter low attenuating lesionadjacent to the gallbladder fossa 2 small for accurate characterization is unchanged from prior study. Soft tissues/Bones: Visualized soft tissues demonstrate no acute findings.Osseous structures demonstrate degenerative change. No aggressive bony lesions. CT/CT chest w con IMPRESSION: No CT evidence of progression of disease. Overall, no significant changein chest findings compared to the prior study. Impression dictated by: Crescencio Blanca Jr., D.O.05/02/2023 2:05 PM Dictation Location: [place] [address] Transcribed By: [facility] 05/02/23 1405 Dictated By: Crescencio Blanca Jr, DO 05/02/23 1400 Signed By: <Electronically signed by Crescencio Blanca Jr, DO inOV> 05/02/23 1400 us Natacha Hess MD IMG CT PROCEDURES Final Result documented in this encounter Visit Diagnoses Not on filedocumented in this encounter Care Teams Sustainment Logistics Analyst Relationship Specialty Start Date End Date Howie Smith MD [address] [place] [address] PCP - General Family Medicine 10/10/24 documented as of this encounter
--- OUTSIDE RECORDS SUMMARY | 2025-04-30 01:41 | XMS_ITS | Encounter Summary ---
Author Organization [facility] Address [address] [place] [address] Care Team Providers Care Natural History Collections Curator Name Role Phone Howie Smith MD Primary Care Provider [phone] Encounter Details Date Type Department Care Team (Late st Contact Info) Description 10/25/2024 External Result Encounter [facility] External Department Unsolicited Roger Mckeon MD [address] [address] Social History Tobacco Use Types Packs/Day Years Used Date Smoking Tobacco: Former Cigarettes Alcohol Use Standard Drinks/Week Comments Not Currently [...] Procedure Name Priority Date/Time Associated Diagnosis Comments XR CHEST 1 VIEW 10/25/2024 3:16 PM EST documented in this encounter Results * XR chest 1 view (10/25/2024 3:16 PM EST) Anatomical Region Laterality Modality Chest Radiographic Cindi ging 10/25/2024 3:16 PM EST Impressions 10/25/2024 3:26 PM EST There is a left-sided Guowjr-k-Tzua. The tip is in the expected location of the superior vena cava. There is no pneumothorax. Masslike opacities are redemonstrated in the right perihilar region and right mid chest with scarring/tenting of the right hemidiaphragm. Linear airspace opacity is noted in the left perihilar region similar to the prior exam. Impression dictated by: Carlos Cavanaugh M.D.10/25/2024 3:23 PM Dictation Location: [place] [address] Transcribed By: [facility] 10/25/24 1523 Dictated By: Carlos Cavanaugh II, MD 10/25/24 1516 Signed By: <Electronically signed by Carlos Cavanaugh II, MD in OV> 10/25/24 1523 Narrative 10/25/2024 3:26 PM [facility] Main [place] [address] [place] [address] XRay Report Signed Patient: Bert Yeung MR#: [id number] 47 : 1950 Acct:[id number] Age/Sex: 73 / M ADM Date: 10/25/24 Loc: [place] Room: Type: [facility] Attending Dr: Roger Mckeon MD Copies to: Roger Mckeon MD Ordering Provider: Roger Mckeon MD Date of Service: 10/25/24 XR/XR chest 1V portable: POST PORT XR chest 1V portable 10/25/2024 2:46 PM SIGNS AND SYMPTOMS: Status post Rooemj-v-Tdid insertion PROTOCOL: Frontal radiograph the chest COMPARISON: 03/11/2022 FINDINGS: The trachea is midline. There is a left-sided Tryqrv-b-Tipo. The tip is in the expected location of the superior vena cava. There is no pneumothorax. The heart and mediastinal structures are within normal limits. Masslike opacities are redemonstrated in the right perihilar region and right mid chest with scarring/tenting of the right hemidiaphragm. Linear airspace opacity is noted in the left perihilar region similar to the prior exam. There is fusion hardware in the lower cervical spine. The bony thorax is intact. Degenerative changes are noted in the shoulders and thoracic spine. XR/XR chest 1V portable Procedure Note Carlos Cavanaugh MD - 12/12/2024 [facility] Main [place] [address] [place] [address] XRay Report Signed Patient: Bert Yeung AMR#: [id number] 47 : 3Acct:[id number] Age/Sex: 73 / MADM Date: 10/25/24 Loc: [place] Room:Type: [facility] Attending Dr: Roger Mckeon MD Copies to: Roger Mckeon MD Ordering Provider: Roger Mckeon MD Date of Service: 10/25/24 XR/XR chest 1V portable: POST PORT XR chest 1V portable 10/25/2024 2:46 PM SIGNS AND SYMPTOMS: Status post Xjchqr-b-Oftz insertion PROTOCOL: Frontal radiograph the chest COMPARISON: 03/11/2022 FINDINGS: The trachea is midline. There is a left-sided Ipmzqu-e-Tenj. The tip isin the expected location of the superior vena cava. There is no pneumothorax. The heart andmediastinal structures are within normal limits. Masslike opacities are redemonstrated in the rightperihilar region and right mid chest with scarring/tenting of the right hemidiaphragm. Linearairspace opacity is noted in the left perihilar region similar to the prior exam. There is fusion hardwarein the lower cervical spine. The bony thorax is intact. Degenerative changes are noted in theshoulders and thoracic spine. XR/XR chest 1V portable IMPRESSION: There is a left-sided Njgoyd-r-Alrb. The tip is in the expected locationof the superior vena cava. There is no pneumothorax. Masslike opacities are redemonstrated in the right perihilar region andright mid chest with scarring/tenting of the right hemidiaphragm. Linear airspace opacity isnoted in the left perihilar region similar to the prior exam. Impression dictated by: Carlos Cavanaugh M.D.10/25/2024 3:23 PM Dictation Location: [place] [address] Transcribed By: GENARO 10/25/24 1523 Dictated By: Carlos Cavanaugh II, MD 10/25/24 1516 Signed By: <Electronically signed by Carlos Cavanaugh II, MD inOV> 10/25/24 1523 us Roger Rodrigues MD IMG XR PROCEDURES Final Resu lt documented in this encounter Visit Diagnoses Not on filedocumented in this encounter Care Teams Natural History Collections Curator Relationship Specialty Start Date End Date Howie Smith MD [address] [place] [address] PCP - General Family Medicine 10/10/24 documented as of this encounter
--- OUTSIDE RECORDS SUMMARY | 2025-04-30 01:41 | XMS_ITS | Encounter Summary ---
Author Organization [facility] Address [address] [place] [address] Care Team Providers Care Regional Sales Engineer Name Role Phone Howie Smith MD Primary Care Provider [phone] Encounter Details Date Type Department Care Team (Late st Contact Info) Description 09/06/2023 External Result Encounter [facility] External Department Unsolicited Natacha Hess MD [address] [place] [address] Social History Tobacco Use Types [...] Diagnosis Comments CT CHEST W IV CONTRAST 09/06/2023 12:57 PM EDT documented in this encounter Results * CT chest w IV contrast (09/06/2023 12:57 PM EDT) Anatomical Region Laterality Modality Body, Chest Computed Tomogra phy 09/06/2023 12:5 7 PM EDT Impressions 09/30/2023 1:[address] evidence of progression of disease. Impression dictated by: Crescencio Blanca Jr., D.O.09/06/2023 1:09 PM Dictation Location: [place] [address] Transcribed By: [facility] 09/06/23 1309 Dictated By: Crescencio Blanca Jr, DO 09/06/23 1257 Signed By: <Electronically signed by Crescencio Blanca Jr, DO in OV> 09/06/23 1309 Narrative 09/30/2023 1:43 PM EST [facility] [place] [address] CT Scan Report Signed Patient: Bert Yeung MR#: [id number] 47 : 1950 Acct:[id number] Age/Sex: 72 / M ADM Date: 09/06/23 Loc: XT Room: Type: [facility] RCR Attending Dr: Natacha Hess MD Copies to: Natacha Hess MD Ordering Provider: Natacha Hess MD Date of Service: 09/06/23 CT/CT chest w con: surveillance CT CHEST WITH INTRAVENOUS CONTRAST: CLINICAL HISTORY: Restage lung cancer. COMPARISON: CT chest 05/02/2023 TECHNIQUE: TECHNIQUE: Spiral images were obtained through the chest following the administration of IV contrast. This CT exam was performed using one or more following dose reduction techniques: Automated exposure control, adjustment of the mA and/or kV according to patient size, or use of iterative reconstruction technique. FINDINGS: CT chest: Mediastinum:Thoracic aorta appears normal in caliber. Pulmonary trunk appears nondilated. No pericardial effusion. Calcified mediastinal lymph nodes. The esophagus is grossly unremarkable. Lungs:Once again demonstrated are presumed posttreatment changes involving both lungs most prominent involving the right upper lobe grossly similar to the prior study with associated bronchiectasis. There is associated small right-sided loculated pleural effusion. No new areas of consolidation. Peripheral reticular changes. No pneumothorax. A left-sided pleural effusion. No suspicious pulmonary nodule. Soft tissues/Bones: Soft tissues demonstrate no acute findings. Osseous structures demonstrate degenerative change. Abd: Gallbladder is contracted. No acute findings. Cyst visualized portion of the right kidney. Subcentimeter low attenuating lesion seen adjacent to the gallbladder 2 small for characterization b ut appears unchanged from prior study. CT/CT chest w con Procedure Note Radiology, Radiologist, - 09/30/2023 [facility] Main [address] [address] [address] Scan Report Signed Patient: Bert Yeung AMR#: [id number] 47 : 3Acct:[id number] Age/Sex: 72 / MADM Date: 09/06/23 Loc: XT Room:Type: [facility] RCR Attending Dr: Natacha Hess MD Copies to: Natacha Hess MD Ordering Provider: Natacha Hess MD Date of Service: 09/06/23 CT/CT chest w con: surveillance CT CHEST WITH INTRAVENOUS CONTRAST: CLINICAL HISTORY: Restage lung cancer. COMPARISON: CT chest 05/02/2023 TECHNIQUE: TECHNIQUE: Spiral images were obtained through the chestfollowing the administration of IV contrast. This CT exam was performed using one or more followingdose reduction techniques: Automated exposure control, adjustment of the mA and/or kV according topatient size, or use of iterative reconstruction technique. FINDINGS: CT chest: Mediastinum:Thoracic aorta appears normal in caliber. Pulmonary trunkappears nondilated. No pericardial effusion. Calcified mediastinal lymph nodes. The esophagusis grossly unremarkable. Lungs:Once again demonstrated are presumed posttreatment changes involvingboth lungs most prominent involving the right upper lobe grossly similar to the prior study withassociated bronchiectasis. There is associated small right-sided loculated pleural effusion. No newareas of consolidation. Peripheral reticular changes. No pneumothorax. A left-sided pleuraleffusion. No suspicious pulmonary nodule. Soft tissues/Bones: Soft tissues demonstrate no acute findings. Osseousstructures demonstrate degenerative change. Abd: Gallbladder is contracted. No acute findings. Cyst visualizedportion of the right kidney. Subcentimeter low attenuating lesion seen adjacent to the gallbladder 2small for characterization b ut appears unchanged from prior study. CT/CT chest w con IMPRESSION: No CT evidence of progression of disease. Impression dictated by: Crescencio Blanca Jr., D.O.09/06/2023 1:09 PM Dictation Location: [place] [address] Transcribed By: [facility] 09/06/23 1309 Dictated By: Crescencio Blanca Jr, DO 09/06/23 1257 Signed By: <Electronically signed by Crescencio Blanca Jr, DO inOV> 09/06/23 1309 Natacha Hess MD IMG CT PROCEDURES Final Result documented in this encounter Visit Diagnoses Not on filedocumented in this encounter Care Teams Regional Sales Engineer Relationship Specialty Start Date End Date Howie Smith MD [address] [place] [address] PCP - General Family Medicine 10/10/24 documented as of this encounter
--- OUTSIDE RECORDS SUMMARY | 2025-04-30 01:41 | XMS_ITS | Clinical Summary ---
Author Organization [facility] Address [address] [place] [address] Care Team Providers Care Supervisor Carbon Electrodes Name Role Phone Howie Smith DO Primary Care Provider Allergies No known active allergies Medications lisinopril (PRINIVIL;ZESTRI L) 10 MG tablet Take 10 mg by mouth nightly. Active simvastatin (ZOCOR) 40 MG tablet Take 40 mg by mouth nightly. Active Coenzyme Q10 (CO Q 10 PO) Take 1 tablet by mouth. Active FISH OIL 1,200 mg by Does not apply route daily. Active Cinnamon 500 MG CAPS Take 1,000 mg by mouth daily. Active therapeutic multivitamin-min erals (THERAGRAN-M) tablet Take 1 tablet by mouth daily. Active aspirin-acetamin ophen-caffeine (EXCEDRIN MIGRAINE) 250-250-65 MG per tablet Take 1 tablet by mouth every 6 hours as needed. 90 tablet 0 09/05/2013 Active Active Problems Problem Noted Date Diagnosed Date Myelopathy, spondylogenic, cervical 08/28/2013 Family History Medical History Relation Name Comments Heart Disease Father Cancer Maternal Grandfather Other Maternal Grandmother MORBID OBESITY (400 LB) Diabetes Mother Heart Disease Mother High Blood Pressure Mother Relation Name Status Comments Father Maternal Grandfather Maternal Grandmother Mother Alive Paternal Grandfather Paternal Grandmother Social History Tobacco Use Types Packs/Day Years Used Date Smoking Tobacco: Former Cigarettes 3 30 S tarted: 08/28/2003 Smokeless Tobacco: Never Alcohol Use Standard Drinks/Week Comments Yes 0 (1 standard drink = 0.6 oz pure alcohol) QUIT 30 YRS AGO, use to abuse alcohol Sex and Gender Information Value Date Recorded Sex Assigned at Not on file Legal Sex Male 9:22 AM EST Gender Identity Not on file Sexual Orientation Not on file Last Filed Vital Signs Vital Sign Reading Time Taken Comments Blood Pressure 147/83 08/29/2013 7:00 AM EDT Pulse 98 08/29/2013 7:00 AM EDT Temperature 36.7 C (98.1 F) 08/29/2013 7:00 AM EDT Respiratory Rate 18 08/29/2013 7:00 AM EDT Oxygen Saturation 97% 08/29/2013 7:00 AM EDT Inhaled Oxygen Concentration - - Weight 113.4 kg (250 lb) 08/28/2013 8:53 AM EDT Height 177.8 cm (5' 10 ) 08/28/2013 8:53 AM EDT Body Mass Index 35.87 08/28/2013 8:53 AM EDT Plan of Treatment Not on file Advance Directives * Full Code (Latest Code Status on File) Date Activated Date Inactivated Comments 08/28/2013 2:40 PM 08/29/2013 12:18 PM Care Teams Supervisor Carbon Electrodes Relationship Specialty Start Date End Date Howie Smith DO [address] [place] [phone] PCP - General 08/16/13
--- OUTSIDE RECORDS SUMMARY | 2025-04-30 01:41 | XMS_ITS | Encounter Summary ---
Author Organization [facility] Address [address] [place] [address] Care Team Providers Care Garage Helper Name Role Phone Howie Smith MD Primary Care Provider [phone] Encounter Details Date Type Department Care Team (Late st Contact Info) Description 09/10/2024 External Result Encounter [facility] External Department Unsolicited Natacha Hess MD [address] [place] [address] Social History Tobacco Use Types [...] Diagnosis Comments CT CHEST W IV CONTRAST 09/10/2024 12:24 PM EDT documented in this encounter Results * CT chest w IV contrast (09/10/2024 12:24 PM EDT) Anatomical Region Laterality Modality Body, Chest Computed Tomogra phy 09/10/2024 12:2 4 PM EDT Impressions 09/10/2024 12:38 PM EDT Presumed posttreatment changes involving both lungs with questionable enlarging mass involving the right upper lobe measuring 4.1 x 4.8 x 3.9 cm. Progression of disease cannot BE excluded. Impression dictated by: Crescencio Blanca Jr., D.O.09/10/2024 12:36 PM Dictation Location: [facility]--23 Transcribed By: PWS 09/10/24 1236 Dictated By: Crescencio Blanca Jr, DO 09/10/24 1224 Signed By: <Electronically signed by Crescencio Blanca Jr, DO in OV> 09/10/24 1236 Narrative 09/10/2024 12:38 PM EDT [facility] [place] [address] [place] [address] CT Scan Report Signed Patient: Bert Yeung MR#: [id number] 45 : 1950 Acct:[id number] Age/Sex: 73 / M ADM Date: 09/10/24 Loc: Room: [facility] Attending Dr: Natacha Hess MD Copies to: Natacha Hess MD Ordering Provider: Natacha Hess MD Date of Service: 09/10/24 CT/CT chest w con: C34.81 - Malignant neoplasm of overlapping sites of right... CT CHEST WITH INTRAVENOUS CONTRAST: CLINICAL HISTORY: Restaging lung cancer COMPARISON: CT chest 03/05/2024 TECHNIQUE: Spiral images were obtained through the chest following intravenous administration of IV contrast. This CT exam was performed using one or more following dose reduction techniques: Automated exposure control, adjustment of the mA and/or kV according to patient size, or use of iterative reconstruction technique. CT chest: Mediastinum:Thoracic aorta appears normal in caliber. Pulmonary trunk appears nondilated. No pericardial effusion. Calcified mediastinal lymph nodes. The esophagus is grossly unremarkable. Lungs:Once again demonstrated are presumed posttreatment changes involving both lungs most prominent involving the right upper lobe with associated bronchiectasis. There is associated small right- sided loculated pleural effusion. No new areas of consolidation. A residual mass is noted involving the right upper lobe measuring 4.1 x 4.8 x 3.9 cm once measuring 3.1 x 3.6 x 3.0 cm Peripheral reticular changes. No pneumothorax. No left-sided pleural effusion. No new suspicious pulmonary nodule. Soft tissues/Bones: Soft tissues demonstrate no acute findings. Osseous structures demonstrate degenerative change. Abd: Gallbladder is contracted. No acute findings. Subcentimeter low attenuating lesion seen adjacent to the gallbladder too small for characterization but appears unchanged from prior study. CT/CT chest w con Procedure Note Radiology, Radiologist, - 09/10/2024 [facility] [place] [address] [place] [address] CT Scan Report Signed Patient: Bert Yeung AMR#: [id number] [birth year] : 3Acct:[id number] Age/Sex: 73 / MADM Date: 09/10/24 Loc: XT Room:Type: [facility] Attending Dr: Natacha Hess MD Copies to: Natacha Hess MD Ordering Provider: Natacha Hess MD Date of Service: 09/10/24 CT/CT chest w con: C34.81 - Malignant neoplasmof overlapping sites of right... CT CHEST WITH INTRAVENOUS CONTRAST: CLINICAL HISTORY: Restaging lung cancer COMPARISON: CT chest 03/05/2024 TECHNIQUE: Spiral images were obtained through the chest followingintravenous administration of IV contrast. This CT exam was performed using one or more following dosereduction techniques: Automated exposure control, adjustment of the mA and/or kV according topatient size, or use of iterative reconstruction technique. CT chest: Mediastinum:Thoracic aorta appears normal in caliber. Pulmonary trunkappears nondilated. No pericardial effusion. Calcified mediastinal lymph nodes. The esophagusis grossly unremarkable. Lungs:Once again demonstrated are presumed posttreatment changes involvingboth lungs most prominent involving the right upper lobe with associated bronchiectasis. There isassociated small right- sided loculated pleural effusion. No new areas of consolidation. Aresidual mass is noted involving the right upper lobe measuring 4.1 x 4.8 x 3.9 cm once measuring3.1 x 3.6 x 3.0 cm Peripheral reticular changes. No pneumothorax. No left-sided pleuraleffusion. No new suspicious pulmonary nodule. Soft tissues/Bones: Soft tissues demonstrate no acute findings. Osseousstructures demonstrate degenerative change. Abd: Gallbladder is contracted. No acute findings. Subcentimeter lowattenuating lesion seen adjacent to the gallbladder too small for characterization but appearsunchanged from prior study. CT/CT chest w con IMPRESSION: Presumed posttreatment changes involving both lungs with questionableenlarging mass involving the right upper lobe measuring 4.1 x 4.8 x 3.9 cm. Progression of diseasecannot BE excluded. Impression dictated by: Crescencio Blanca Jr., D.OAnselmo09/10/2024 12:36 PM Dictation Location: [facility]- Transcribed By: PWS 09/10/24 1236 Dictated By: Crescencio Blanca Jr, DO 09/10/24 1224 Signed By: <Electronically signed by Crescencio Blanca Jr, DO inOV> 09/10/24 1236 Natacha Hess MD IMG CT PROCEDURES Final Result documented in this encounter Visit Diagnoses Not on filedocumented in this encounter Care Teams Garage Helper Relationship Specialty Start Date End Date Howie Smith MD [address] [place] [address] PCP - General Family Medicine 10/10/24 documented as of this encounter
--- OUTSIDE RECORDS SUMMARY | 2025-04-30 01:41 | XMS_ITS | Encounter Summary ---
Author Organization [facility] Address [address] [place] [address] Care Team Providers Care Car Customizer Name Role Phone Howie Smith MD Primary Care Provider [phone] Encounter Details Date Type Department Care Team (Late st Contact Info) Description 03/05/2024 External Result Encounter [facility] External Department Unsolicited Natacha Hess MD [address] [place] [address] Social History Tobacco Use Types [...] Diagnosis Comments CT CHEST W IV CONTRAST 03/05/2024 1:45 PM EDT documented in this encounter Results * CT chest w IV contrast (03/05/2024 1:45 PM EDT) Anatomical Region Laterality Modality Body, Chest Computed Tomogra phy 03/05/2024 1:45 PM EDT Impressions 03/05/2024 1:[address] evidence of progression of disease. Impression dictated by: Joesph Cleary M.D.03/05/2024 1:50 PM Dictation Location: [place] [address] Transcribed By: GENARO 03/05/24 1350 Dictated By: Joesph Cleary DO 03/05/24 1345 Signed By: <Electronically signed by Joesph Cleary DO in OV> 03/05/24 1350 Narrative 03/05/2024 1:53 PM EDT [facility] [address] CT Scan Report Signed Patient: Bert Yeung MR#: [id number] [birth year] : 1950 Acct:[id number] Age/Sex: 73 / M ADM Date: 03/05/24 Loc: XT Room: Type: [facility] Attending Dr: Natacha Hess MD Copies to: Natacha Hess MD Ordering Provider: Natacha Hess MD Date of Service: 03/05/24 CT/CT chest w con: surveillance CT Chest with contrast TECHNIQUE: Axial imaging with 2-D reconstruction. 90 cc of Isovue-300The CT exam was performed using one or more the following dose reduction techniques: Automated exposure control, adjustment of the MA and/or Kv according to patient size, or use of the iterative reconstruction technique. History: Restaging lung cancer COMPARISON: 09/06/23 THYROID: Unremarkable TRACHEA AND BRONCHI: Patent ESOPHAGUS: Unremarkable. HEART: Within normal limits PERICARDIAL EFFUSION: None CORONARY ARTERY CALCIFICATION: None MEDIASTINUM: No adenopathy. No pneumoperitoneum. No mediastinal hematoma. PULMONARY JERRY: No hilar mass or adenopathy is seen. THORACIC AORTA Unremarkable LUNG NODULE None LUNGS: Similar posttreatment changes involving both lungs most prominent in the RIGHT upper lobe. Similar bronchiectasis. Similar peripheral reticular changes. Redemonstration of tiny pleural effusion. No suspicious lung nodule. PLEURAL EFFUSION: None PNEUMOTHORAX: No pneumothorax seen. CHEST WALL: No abnormality AXILLA:Unremarkable BONY STRUCTURES similar degeneration. UPPER ABDOMEN: Images of the upper abdomen are noncontributory. Hepatic hypodensity near the gallbladder fossa unchanged. CT/CT chest w con Procedure Note Radiology, RadiologistMD - 03/05/2024 [facility] Main [address] [address] [address] Scan Report Signed Patient: Bert Yeung AMR#: [id number] 47 : 1950cct:[id number] Age/Sex: 73 / MADM Date: 03/05/24 Loc: XT Room:Type: [facility] Attending Dr: Natacha Hess MD Copies to: Natacha Hess MD Ordering Provider: Natacha Hess MD Date of Service: 03/05/24 CT/CT chest w con: surveillance CT Chest with contrast TECHNIQUE: Axial imaging with 2-D reconstruction. 90 cc of Isovue-300TheCT exam was performed using one or more the following dose reduction techniques: Automatedexposure control, adjustment of the MA and/or Kv according to patient size, or use of the iterativereconstruction technique. History: Restaging lung cancer COMPARISON: 09/06/23 THYROID: Unremarkable TRACHEA AND BRONCHI: Patent ESOPHAGUS: Unremarkable. HEART: Within normal limits PERICARDIAL EFFUSION: None CORONARY ARTERY CALCIFICATION: None MEDIASTINUM: No adenopathy. No pneumoperitoneum. No mediastinalhematoma. PULMONARY JERRY: No hilar mass or adenopathy is seen. THORACIC AORTA Unremarkable LUNG NODULE None LUNGS: Similar posttreatment changes involving both lungs most prominentin the RIGHT upper lobe. Similar bronchiectasis. Similar peripheral reticular changes.Redemonstration of tiny pleural effusion. No suspicious lung nodule. PLEURAL EFFUSION: None PNEUMOTHORAX: No pneumothorax seen. CHEST WALL: No abnormality AXILLA:Unremarkable BONY STRUCTURES similar degeneration. UPPER ABDOMEN: Images of the upper abdomen are noncontributory. Hepatichypodensity near the gallbladder fossa unchanged. CT/CT chest w con IMPRESSION: No CT evidence of progression of disease. Impression dictated by: Joesph Cleary M.D.03/05/2024 1:50 PM Dictation Location: [place] [address] Transcribed By: [facility] 03/05/24 1350 Dictated By: Joesph Cleary DO 03/05/24 1345 Signed By: <Electronically signed by Joesph Cleary DO in OV> 03/05/24 1350 us Natacha Hess MD IMG CT PROCEDURES Final Result documented in this encounter Visit Diagnoses Not on filedocumented in this encounter Care Teams Car Customizer Relationship Specialty Start Date End Date Howie Smith MD [address] [place] [address] PCP - General Family Medicine 10/10/24 documented as of this encounter
--- OUTSIDE RECORDS SUMMARY | 2025-04-30 01:41 | XMS_ITS | Clinical Summary ---
Author Organization [facility] Healthcare Address [address] [place] [address] Care Team Providers Care Poising Inspector Name Role Phone Howie Smith MD Primary Care Provider [phone] Allergies No known active allergies Medications hydroCHLOROthia zide (HYDRODiuril) 25 MG tablet Take 25 mg by mouth Daily 07/28/2024 Active simvastatin (Zocor) 80 MG tablet Take 80 mg by mouth at bedtime 07/28/2024 Active losartan (Cozaar) 25 MG tablet Take 25 mg by mouth Daily 07/28/2024 Active carvedilol (Coreg) 3.125 MG tablet Take 3.125 mg by mouth in the morning and 3.125 mg before bedtime. 07/28/2024 Active ondansetron (Zofran) 8 MG tablet TAKE 1 TABLET EVERY 8 HOURS NEEDED FOR NAUSEA AND VOMITING 09/27/2024 Active HYDROcodone-sona taminophen (Dixon) 5-325 MG tablet 1 tablet 03/12/2024 Active omega-3 (FISH OIL) 300 MG capsule Take by mouth Daily Active Berberine Chloride 500 MG capsule Take by mouth Active cholecalciferol (Vitamin D-3) 50 MCG (1999 UT) capsule Take 2,000 Units by mouth Daily Active ramucirumab (Cyramza) 100 MG/10ML solution Infuse into a venous catheter Active omeprazole (PriLOSEC) [address] Lentz ons:LPRD (laryngopharyng eal reflux disease) Take 1 capsule (40 mg) by mouth in the morning. Take before meals. Do not crush or chew.. 90 capsule 11/05/2024 Active famotidine (Pepcid) 20 MG tabletIndicatio ns:LPRD (laryngopharyng eal reflux disease) TAKE 1 TABLET BY MOUTH AT BEDTIME 90 tablet 01/31/2025 Active Active Problems Problem Noted Date Diagnosed Date Venous insufficiency 10/17/2024 Poor venous access 10/17/2024 Malignant neoplasm of overlapping sites of right lung 10/17/2024 Myelopathy, spondylogenic, cervical 08/28/2013 Encounters Date Type Department Care Team Description 04/24/2025 External Result Encounter [facility] External Department Unsolicited Natacha Hess MD 04/23/2025 External Result Encounter [facility] External Department Unsolicited Natacha Hess MD 04/23/2025 External Result Encounter [facility] External Department Unsolicited Natacha Hess MD 04/03/2025 External Result Encounter [facility] External Department Unsolicited Natacha Hess MD 04/03/2025 External Result Encounter [facility] External Department Unsolicited Natacha Hess MD 04/02/2025 External Result Encounter [facility] External Department Unsolicited Natacha Hess MD 04/02/2025 External Result Encounter [facility] External Department Unsolicited Natacha Hess MD 03/05/2025 External Result Encounter [facility] External Department Unsolicited Natacha Hess MD 03/05/2025 External Result Encounter [facility] External Department Unsolicited Natacha Hess MD 02/13/2025 External Result Encounter [facility] External Department Unsolicited Natacha Hess MD 02/12/2025 External Result Encounter [facility] External Department Unsolicited Natacha Hess MD 02/12/2025 External Result Encounter [facility] External Department Unsolicited Natacha Hess MD 02/12/2025 External Result Encounter [facility] External Department Unsolicited Natacha Hess MD 02/03/2025 [facility] [address] [place] [address] Trinity Rockwell MD LPRD (laryngopharyngeal reflux disease) 01/31/2025 [facility]ill [facility] [address] [place] [address] Trinity Rockwell MD LPRD (laryngopharyngeal reflux disease) from Last 3 Months Family History Medical History Relation Name Comments Cancer Brother arcenio Garcias Cancer Mother My mother Diabetes Mother My mother Cancer Sister montrell Sellers Relation Name Status Comments Brother arcenio Garcias Father Mother My mother Alive Sister montrell Sellers Social History Tobacco Use Types Packs/Day Years [...] Sign Reading Time Taken Comments Blood Pressure 158/77 12/11/2024 11:33 AM EST Pulse 81 12/11/2024 11:33 AM EST Temperature - - Respiratory Rate - - Oxygen Saturation - - Inhaled Oxygen Concentration - - Weight 115 kg (253 lb) 12/11/2024 11:33 AM EST Height 177.8 cm (5' 10 ) 12/11/2024 11:33 AM EST Body Mass Index 36.3 12/11/2024 11:33 AM EST Plan of Treatment Health Maintenance Due Date Last Done Comments CT Colonography 1950 Colonoscopy 1950 Colorectal Cancer Screening 1950 FIT-DNA 1950 FIT 1950 FOBT 1950 Sigmoidoscopy 1950 Influenza Vaccine Completed 10/05/2024, , 08/17/2021, Additional history exists Pneumococcal Vaccine: 65+ Years Completed 10/05/2024, 06/09/2020, 09/06/2018, Additional history exists Procedures Procedure Name Priority Date/Time Associated Diagnosis Comments TOTAL PROTEIN, URINE Routine 04/24/2025 12:50 PM EDT CREATININE, RANDOM URINE Routine 04/24/2025 12:50 PM EDT COMPREHENSIVE METABOLIC PANEL STAT 04/23/2025 2:55 PM EDT CBC WITH AUTO DIFFERENTIAL STAT 04/23/2025 2:55 PM EDT TOTAL PROTEIN, URINE Routine 04/03/2025 3:00 PM EDT CREATININE, RANDOM URINE Routine 04/03/2025 3:00 PM EDT TOTAL PROTEIN, URINE Routine 04/03/2025 11:25 AM EDT CREATININE, RANDOM URINE Routine 04/03/2025 11:25 AM EDT COMPREHENSIVE METABOLIC PANEL STAT 04/02/2025 1:30 PM EDT CBC WITH AUTO DIFFERENTIAL STAT 04/02/2025 1:30 PM EDT SCAN AND CBC STAT 03/05/2025 2:05 PM EDT COMPREHENSIVE METABOLIC PANEL STAT 03/05/2025 2:05 PM EDT TOTAL PROTEIN, URINE STAT 02/13/2025 10:15 AM EDT CREATININE, RANDOM URINE STAT 02/13/2025 10:[address] CHEST W IV CONTRAST 1:56 PM EDT DIFF AND CBC STAT 02/12/2025 12:10 PM EDT COMPREHENSIVE METABOLIC PANEL STAT 02/12/2025 12:10 PM EDT from Last 3 Months Results * TOTAL PROTEIN, URINE (04/24/2025 12:50 PM EDT) Only the most recent of4 resultswithin the time period is included. TOTAL PROTEIN, URINE 8 0 - 9 mg/dL 04/24/2025 1:38 PM EDT [facility] Other 04/24/2025 12:5 0 PM EDT 04/24/2025 12:56 PM EDT us Natacha Hess MD LAB BLOOD ORDERABLES Final Resul t Performing Organization Address [facility] Co de Phone Number [address] [address], [facility] [address] [place] [address] * Creatinine, urine, random (04/24/2025 12:50 PM EDT) Only the most recent of4 resultswithin the time period is included. CREATININE, URINE (RANDOM) 101.00 mg/dL 04/24/2025 1:38 PM EDT [facility] Comment:No reference range e stablished Other 04/24/2025 12:5 0 PM EDT 04/24/2025 12:56 PM EDT us Natacha Hess MD LAB URINE ORDERABLES Final Resul t Performing Organization Address [facility] de Phone Number [address] [address], [facility] [address] [place] [address] * (ABNORMAL) CBC auto differential (04/23/2025 2:55 PM EDT) Only the most recent of2 resultswithin the time period is included. WBC 10.2 4.1 - 10.5 10*3/uL 04/23/2025 3:10 PM EDT [facility] UNCORRECTED WHITE BLOOD COUNT 10.2 4.1 - 10.5 10*3/uL 04/23/2025 3:10 PM EDT [facility] RBC 5.04 3.90 - 5.60 10*6/uL 04/23/2025 3:10 PM EDT [facility] HEMOGLOBIN 14.3 13.0 - 17.0 g/dL 04/23/2025 3:10 PM EDT [facility] HEMATOCRIT 42.6 38.8 - 50.0 % 04/23/2025 3:10 PM EDT [facility] MCV 84.6 83.5 - 101 fL 04/23/2025 3:10 PM EDT [facility] MCH 28.4 27.5 - 35.2 pg 04/23/2025 3:10 PM EDT [facility] MCHC 33.5 32.5 - 35.6 g/dL 04/23/2025 3:10 PM EDT [facility] RED CELL DISTRIBUTION WIDTH, RDW 20.1(H) 12.0 - 14.8 % 04/23/2025 3:10 PM EDT [facility] PLATELET COUNT 368 150 - 450 10*3/uL 04/23/2025 3:10 PM EDT [facility] MEAN PLATELET VOLUME, MPV 7.2 6.6 - 10.1 fL 04/23/2025 3:10 PM EDT [facility] NEUTROPHILS, % 64.7 . % 04/23/2025 3:10 PM EDT [facility] LYMPHOCYTES, % 20.4 . % 04/23/2025 3:10 PM EDT [facility] MONOCYTE/MACROPHA GE, % 13.6 . % 04/23/2025 3:10 PM EDT [facility] EOSINOPHILS, % 1.0 . % 04/23/2025 3:10 PM EDT [facility] BASOPHILS, % 0.3 . % 04/23/2025 3:10 PM EDT [facility] NRBC 0.1 0 - 0.5 /100{WBC} 04/23/2025 3:10 PM EDT [facility] NEUTROPHILS 6.6 1.8 - 7.7 10*3/uL 04/23/2025 3:10 PM EDT [facility] LYMPHOCYTES 2.1 1.00 - 4.8 10*3/uL 04/23/2025 3:10 PM EDT [facility] MONOCYTES 1.4(H) 0.0 - 0.8 10*3/uL 04/23/2025 3:10 PM EDT [facility] EOSINOPHILS 0.1 0.0 - 0.45 10*3/uL 04/23/2025 3:10 PM EDT [facility] BASOPHILS 0.0 0.0 - 0.2 10*3/uL 04/23/2025 3:10 PM EDT [facility] Blood (Blood) 04/23/2025 2:5 5 PM EDT 04/23/2025 3:04 PM EDT Natacha Hess MD LAB BLOOD ORDERABLES Final Resul t [facility] [address] [place] [address], [facility] [address] [place] [address] * Comprehensive metabolic panel (04/23/2025 2:55 PM EDT) Only the most recent of4 resultswithin the time period is included. Glucose 92 70 - 100 mg/dL 04/23/2025 3:28 PM EDT [facility] Comment: Random Glucose Reference Range is dependent on time and content of last meal. Glucose of more than 200 mg/dL in a nonstressed, ambulatory subject supports the diagnosis of Diabetes Mellitus. ADA recommended reference range BUN 11 7 - 25 mg/dL 04/23/2025 3:28 PM EDT [facility] CREATININE 1.02 0.70 - 1.30 mg/dL 04/23/2025 3:28 PM EDT [facility] ESTIMATED GFR >60.0 mL/Min 04/23/2025 3:28 PM EDT [facility] Sodium 137 136 - 145 mmol/L 04/23/2025 3:28 PM EDT [facility] Potassium, Bld 4.3 3.5 - 5.1 mmol/L 04/23/2025 3:28 PM EDT [facility] Chloride 104 98 - 107 mmol/L 04/23/2025 3:28 PM EDT [facility] Carbon Dioxide 26.0 21.0 - 31.0 mmol/L 04/23/2025 3:28 PM EDT [facility] Anion Gap 11.3 6.0 - 15.0 meq/L 04/23/2025 3:28 PM EDT [facility] Calcium 9.5 8.6 - 10.3 mg/dL 04/23/2025 3:28 PM EDT [facility] TOTAL PROTEIN 7.0 6.4 - 8.9 g/dL 04/23/2025 3:28 PM EDT [facility] ALBUMIN LEVEL 3.9 3.5 - 5.7 g/dL 04/23/2025 3:28 PM EDT [facility] GLOBULIN 3.1 g/dL 04/23/2025 3:28 PM EDT [facility] ALBUMIN/GLOBULIN RATIO 1.3 04/23/2025 3:28 PM EDT [facility] BILIRUBIN,TOTAL 0.4 0.3 - 1.0 mg/dL 04/23/2025 3:28 PM EDT [facility] ASPARTATE AMINO TRANSFERASE 20 13 - 39 U/L 04/23/2025 3:28 PM EDT [facility] ALANINE AMINOTRANSFERASE 20 7 - 52 U/L 04/23/2025 3:28 PM EDT [facility] ALKALINE PHOSPHATASE 54 34 - 104 U/L 04/23/2025 3:28 PM EDT [facility] CREATININE CLR [facility] 81.38 04/23/2025 3:28 PM EDT [facility] Other Topography unknown / Unknown 04/23/2025 2:55 PM EDT 04/23/2025 3:04 PM EDT us Natacha Hess MD LAB BLOOD ORDERABLES Final Resul t Performing Organization Address [facility]/State/ZIP Co de Phone Number [facility] [address] [place] [address], [facility] [address] [place] [address] * (ABNORMAL) SCAN AND CBC (03/05/2025 2:05 PM EDT) WBC 14.6(H) 4.1 - 10.5 10*3/uL 03/05/2025 2:23 PM EDT [facility] UNCORRECTED WHITE BLOOD COUNT 14.6(H) 4.1 - 10.5 10*3/uL 03/05/2025 2:23 PM EDT [facility] RBC 4.06 3.90 - 5.60 10*6/uL 03/05/2025 2:23 PM EDT [facility] HEMOGLOBIN 11.5(L) 13.0 - 17.0 g/dL 03/05/2025 2:23 PM EDT [facility] HEMATOCRIT 34.0(L) 38.8 - 50.0 % 03/05/2025 2:23 PM EDT [facility] MCV 83.7 83.5 - 101 fL 03/05/2025 2:23 PM EDT [facility] MCH 28.4 27.5 - 35.2 pg 03/05/2025 2:23 PM EDT [facility] MCHC 33.9 32.5 - 35.6 g/dL 03/05/2025 2:23 PM EDT [facility] RED CELL DISTRIBUTION WIDTH, RDW 19.8(H) 12.0 - 14.8 % 03/05/2025 2:23 PM EDT [facility] PLATELET COUNT 429 150 - 450 10*3/uL 03/05/2025 2:23 PM EDT [facility] MEAN PLATELET VOLUME, MPV 7.1 6.6 - 10.1 fL 03/05/2025 2:23 PM EDT [facility] NEUTROPHILS, % 69.3 . % 03/05/2025 3:45 PM EDT [facility] LYMPHOCYTES, % 14.8 . % 03/05/2025 3:45 PM EDT [facility] MONOCYTE/MACROPHAG E, % 14.8 . % 03/05/2025 3:45 PM EDT [facility] EOSINOPHILS, % 0.3 . % 03/05/2025 3:45 PM EDT [facility] BASOPHILS, % 0.8 . % 03/05/2025 3:45 PM EDT [facility] NRBC 0.0 0 - 0.5 /100{WBC} 03/05/2025 3:45 PM EDT [facility] NEUTROPHILS 10.1(H) 1.8 - 7.7 10*3/uL 03/05/2025 3:45 PM EDT [facility] LYMPHOCYTES 2.2 1.00 - 4.8 10*3/uL 03/05/2025 3:45 PM EDT [facility] MONOCYTES 2.2(H) 0.0 - 0.8 10*3/uL 03/05/2025 3:45 PM EDT [facility] EOSINOPHILS 0.0 0.0 - 0.45 10*3/uL 03/05/2025 3:45 PM EDT [facility] BASOPHILS 0.1 0.0 - 0.2 10*3/uL 03/05/2025 3:45 PM EDT [facility] POLYCHROMASIA Moderate 03/05/2025 3:45 PM EDT [facility] POIKILOCYTOSIS Slight 03/05/2025 3:45 PM EDT [facility] ANISOCYTOSIS Slight 03/05/2025 3:45 PM EDT [facility] MICROCYTOSIS Slight 03/05/2025 3:45 PM EDT [facility] PLATELET ESTIMATE Normal Normal 025 3:45 PM EDT [facility] PLATELET MORPHOLOGY Normal Normal 03/05/2025 3:45 PM EDT [facility] Blood (Blood) 03/05/2025 2:0 5 PM EDT 03/05/2025 2:11 PM EDT us Natacha Hess MD LAB BLOOD ORDERABLES Final Resul t [facility] [address] [place] [address], [facility] [address] [place] [id number] * CT chest w IV contrast (02/12/2025 1:56 PM EDT) Anatomical Region Laterality Modality Body, Chest Computed Tomogra phy 02/12/2025 1:56 PM EDT Impressions 02/12/2025 2:02 PM EDT No significant change in chest findings compared to the 12/10/[address] evidence of progression disease. Impression dictated by: Crescencio Blanca Jr., D.O.02/12/2025 2:00 PM Dictation Location: [place] [address] Transcribed By: GENARO 02/12/25 1400 Dictated By: Crescencio Blanca Jr, DO 02/12/25 1356 Signed By: <Electronically signed by Crescencio Blanca Jr, DO in OV> 02/12/25 1400 Narrative 02/12/2025 2:02 PM EDT [facility] Main [address] [address] [address] Scan Report Signed Patient: Bert Yeung MR#: [id number] 45 : 1950 Acct:[id number] Age/Sex: 74 / M ADM Date: 02/12/25 Loc: XT Room: Type: REG RCR Attending Dr: Natacha Hess MD Copies to: Natacha Hess MD Ordering Provider: Natacha Hess MD Date of Service: 02/12/25 CT/CT chest w con: C34.11 - Malignant neoplasm of upper lobe, right bronchus... CT CHEST WITH INTRAVENOUS CONTRAST: CLINICAL HISTORY: Restage lung cancer COMPARISON: CT chest 12/10/2024 TECHNIQUE: Spiral images were obtained through the chest following intravenous administration of IV contrast. This CT exam was performed using one or more following dose reduction techniques: Automated exposure control, adjustment of the mA and/or kV according to patient size, or use of iterative reconstruction technique. FINDINGS: Mediastinum:Left-sided port is in place. Thoracic aorta appears normal in caliber. Pulmonary trunk appears nondilated. No pericardial effusion. Calcified subcarinal lymph node. No lymphadenopathy. The esophagus is grossly unremarkable. Lungs:Presumed posttreatment changes involving the lung parenchyma grossly unchanged in configuration compared to the prior study. Associated trace right pleural effusion also unchanged. No new consolidation pneumothorax or pleural effusion. No suspicious pulmonary nodule or measurable mass. Abd:No acute process. Gallbladder appears contracted with potential choledochal cyst similar to the prior study. Soft tissues/Bones: No acute findings. Osseous structures demonstrate degenerative change. CT/CT chest w con Procedure Note Crescencio Blanca Jr., MD - 02/12/2025 [facility] Main [place] [address] [place] [address] [address] Scan Report Signed Patient: Bert Yeung AMR#: [id number] 47 : 1950cct:[id number] Age/Sex: 74 / MADM Date: 02/12/25 Loc: XT Room:Type: REG RCR Attending Dr: Natacha Hess MD Copies to: Natacha Hess MD Ordering Provider: Natacha Hess MD Date of Service: 02/12/25 CT/CT chest w con: C34.11 - Malignant neoplasmof upper lobe, right bronchus... CT CHEST WITH INTRAVENOUS CONTRAST: CLINICAL HISTORY: Restage lung cancer COMPARISON: CT chest 12/10/2024 TECHNIQUE: Spiral images were obtained through the chest followingintravenous administration of IV contrast. This CT exam was performed using one or more following dosereduction techniques: Automated exposure control, adjustment of the mA and/or kV according topatient size, or use of iterative reconstruction technique. FINDINGS: Mediastinum:Left-sided port is in place. Thoracic aorta appears normal incaliber. Pulmonary trunk appears nondilated. No pericardial effusion. Calcified subcarinal lymphnode. No lymphadenopathy. The esophagus is grossly unremarkable. Lungs:Presumed posttreatment changes involving the lung parenchyma grosslyunchanged in configuration compared to the prior study. Associated trace right pleuraleffusion also unchanged. No new consolidation pneumothorax or pleural effusion. No suspiciouspulmonary nodule or measurable mass. Abd:No acute process. Gallbladder appears contracted with potentialcholedochal cyst similar to the prior study. Soft tissues/Bones: No acute findings. Osseous structures demonstratedegenerative change. CT/CT chest w con IMPRESSION: No significant change in chest findings compared to the 12/10/[address] evidence of progression disease. Impression dictated by: Crescencio Blanca Jr., D.O.02/12/2025 2:00 PM Dictation Location: [place] [address] Transcribed By: [facility] 02/12/25 1400 Dictated By: Crescencio Blanca Jr, DO 02/12/25 1356 Signed By: <Electronically signed by Crescencio Blanca Jr, DO inOV> 02/12/25 1400 us Natacha Hess MD IMG CT PROCEDURES Final Result * (ABNORMAL) DIFF AND CBC (02/12/2025 12:10 PM EDT) WBC 10.8(H) 4.1 - 10.5 10*3/uL 02/12/2025 12:18 PM EDT [facility] UNCORRECTED WHITE BLOOD COUNT 10.8(H) 4.1 - 10.5 10*3/uL 02/12/2025 12:18 PM EDT [facility] RBC 4.48 3.90 - 5.60 10*6/uL 02/12/2025 12:18 PM EDT [facility] HEMOGLOBIN 12.9(L) 13.0 - 17.0 g/dL 02/12/2025 12:18 PM EDT [facility] HEMATOCRIT 37.8(L) 38.8 - 50.0 % 02/12/2025 12:18 PM EDT [facility] MCV 84.3 83.5 - 101 fL 02/12/2025 12:18 PM EDT [facility] MCH 28.7 27.5 - 35.2 pg 02/12/2025 12:18 PM EDT [facility] MCHC 34.1 32.5 - 35.6 g/dL 02/12/2025 12:18 PM EDT [facility] RED CELL DISTRIBUTION WIDTH, RDW 19.7(H) 12.0 - 14.8 % 02/12/2025 12:18 PM EDT [facility] PLATELET COUNT 538(H) 150 - 450 10*3/uL 02/12/2025 12:18 PM EDT [facility] MEAN PLATELET VOLUME, MPV 6.7 6.6 - 10.1 fL 02/12/2025 12:18 PM EDT [facility] SEGMENTED NEUTROPHILS 65 50 - 70 % 02/12/2025 2:10 PM EDT [facility] LYMPHOCYTES 14(L) 18 - 42 % 02/12/2025 2:10 PM EDT [facility] MONOCYTES 18(H) 2 - 11 % 02/12/2025 2:10 PM EDT [facility] EOSINOPHILS 2 1 - 3 % 02/12/2025 2:10 PM EDT [facility] BASOPHILS 1 0 - 2 % 02/12/2025 2:10 PM EDT [facility] POLYCHROMASIA Slight 02/12/2025 2:10 PM EDT [facility] POIKILOCYTOSIS Slight 02/12/2025 2:10 PM EDT [facility] ANISOCYTOSIS Slight 02/12/2025 2:10 PM EDT [facility] MICROCYTOSIS Slight 02/12/2025 2:10 PM EDT [facility] OVALOCYTES Slight 02/12/2025 2:10 PM EDT [facility] PLATELET ESTIMATE Increased Normal 025 2:10 PM EDT [facility] PLATELET MORPHOLOGY Normal Normal 02/12/2025 2:10 PM EDT [facility] Blood (Blood) 02/12/2025 12: 10 PM EDT 02/12/2025 12:12 PM EDT us Natacha Hess MD LAB BLOOD ORDERABLES Final Resul t Performing Organization Address City/State/[facility] Co de Phone Number [facility] [address] [place] [address], [facility] [address] [place] [address] from Last 3 Months Insurance [employer] [place] Care Teams Poising Inspector Relationship Specialty Start Date End Date Howie Smith MD [address] [place], [place] [phone] PCP - General Family Medicine 10/10/24
--- OUTSIDE RECORDS SUMMARY | 2025-04-30 01:41 | XMS_ITS | Encounter Summary ---
Author Organization [facility] Address [address] [place] [address] Care Team Providers Care Value Stream Manager Name Role Phone Howie Smith MD Primary Care Provider [phone] Encounter Details Date Type Department Care Team (Late st Contact Info) Description 02/12/2025 External Result Encounter [facility] External Department Unsolicited Natacha Hess MD [address] [place] [address] Social History Tobacco Use Types [...] Diagnosis Comments CT CHEST W IV CONTRAST 02/12/2025 1:56 PM EDT documented in this encounter Results * CT chest w IV contrast (02/12/2025 1:56 PM EDT) Anatomical Region Laterality Modality Body, Chest Computed Tomogra phy 02/12/2025 1:56 PM EDT Impressions 02/12/2025 2:02 PM EDT No significant change in chest findings compared to the 12/10/[address] evidence of progression disease. Impression dictated by: Crescencio Blanca Jr., D.O.02/12/2025 2:00 PM Dictation Location: [facility] Transcribed By: [facility] 02/12/25 1400 Dictated By: Crescencio Blanca Jr, DO 02/12/25 1356 Signed By: <Electronically signed by Crescencio Blanca Jr, DO in OV> 02/12/25 1400 Narrative 02/12/2025 2:02 PM EDT [facility] Main [place] [address] [place] [address] CT Scan Report Signed Patient: Bert Yeung MR#: [id number] [birth year] : 1950 Acct:[id number] Age/Sex: 74 / M ADM Date: 02/12/25 Loc: Room: Type: [facility] RCR Attending Dr: Natacha Hess MD [...] Note Crescencio Blanca Jr., MD - 02/12/2025 [facility] Main [place] [address] [place] [address] CT Scan Report Signed Patient: Bert Yeung AMR#: [id number] [birth year] : [birth year]Acct:[id number] Age/Sex: 74 / MADM Date: 02/12/25 Loc: [facility]: Natacha Hess MD Copies to: [...] Blanca Jr., D.O.02/12/2025 2:00 PM Dictation Location: [place] [address] Transcribed By: [facility] 02/12/25 1400 Dictated By: Crescencio Blanca Jr, DO 02/12/25 1356 Signed By: <Electronically signed by Crescencio Blanca Jr, DO inOV> 04/01/25 1400 us Natacha Hess MD IMG CT PROCEDURES Final Result documented in this encounter Visit Diagnoses Not on filedocumented in this encounter Care Teams Value Stream Manager Relationship Specialty Start Date End Date Howie Smith MD [address] [place], [place] [phone] PCP - General Family Medicine 10/10/24 documented as of this encounter
--- OUTSIDE RECORDS SUMMARY | 2025-04-30 01:44 | XMS_ITS | CCD ---
Author Organization [facility] Care Team Providers Care Volunteer Services Coordinator Name Role Phone KATHERINE SIMEON JR Attending Unavailable KATHERINE SIMEON JR Consulting Unavailable KATHERINE SIMEON JR Admitting Unavailable SHAKA, DR HOWIE Mata Primary Care Unavailable VANDANA PEREYRA Consulting Unavailable KATHERINE SIMEON JR Attending Unavailable KATHERINE SIMEON JR Consulting Unavailable SHAKA, DR HOWIE Mata Primary Care Unavailable KATHERINE SIMEON JR Admitting Unavailable DWAYNE, PRINCE Admitting Unavailable ZIVICTOR M, DR EDIN Leigh Consulting Unavailable PRINCE RICE Attending Unavailable DWAYNE, PRINCE Consulting Unavailable DO Howie Smith Primary Care Provider [phone] DO Howie Smith Attending Provider MD Natacha Hess Attending Provider [phone] MD Alicia Ann Referring Provider [phone] MD Natacha Hess Attending Provider MD Alicia Ann Referring Provider Alicia Ann Unavailable DO Howie Smith Primary Care Provider MD Natacha Hess Attending Provider [phone] MD Alicia Ann Referring Provider Cory Mathews Unavailable Kenji Valencia Unavailable DO Howie Smith Primary Care Provider MD Natacha Hess Attending Provider MD Alicia Ann Referring Provider RUPALI Oliveira- Mireya Brady Emergency Provider DO Howie Smith Primary Care Provider Unavailable Primary Care Provider Unavailabl e DO Shaka [facility] Primary Care Provider MD Natacha Hess Attending Provider [phone] MD Alicia Ann Ref[facility] Natacha Hess MD Attending Provider [phone] Marissa [facility] Referring Provider Shaka HEREDIA, [facility] Primary Care [facility] Wilmer Mckeon MD Attending Provider Natacha Hess MD Attending Provider Alicia Ann MD Referring Provider Natacha Hess MD Attending Provider [phone] Marissa HEREDIA [facility] Referring Provider [phone] FROYLAN SCOTT Attending Unavailable WILMER BARRAGAN Attending Unavailable WILMER BARRAGAN Attending Unavailable FROYLAN SCOTT Attending Unavailable [facility] Wilmer Mckeon MD Attending Provider Natacha Hess MD Attending Provider Alicia Ann MD Referring Provider Unavailable Primary Care Provider UnavailElvia Mercer DO Primary Care Provider Natacha Hess MD Attending Provider Alicia Ann MD Referring Provider Elvia Sprague DO Primary Care Provider Shoshana Pablo MD Attending Provider [phone] SHOSHANA PABLO Admitting Unavailable SHOSHANA PABLO Attending Unavailable SHOSHANA PABLO Attending Unavailable SHOSHANA PABLO Attending Unavailable Wilmer Mckeon Admitting Unavailable Wilmer Mckeon Attending Unavailable [facility] Unavailable Shoshana Pablo Admitting Unavailable Shoshana Pablo Attending Unavailable Elvia Sprague Primary Care Unavailable Natacha Hess Attending Unavailable Alicia Ann Referring Unavailable Elvia Sprague Primary Care Unavailable Natacha Hess Admitting Unavailable Medications Current Medications Medication Drug Class(es) Dates Sig (Normalized) Sig (Original) acetaminophen 325 mg / HYDROcodone bitartrate 5 mg oral tablet (20 sources) Opioid Agonist Start: 03-12-2024 HYDROcodone-acetam inophen ([place]) 5-325 MG tablet 1 tablet 03/12/2024 Active Start: 03-12-2024 End: 11-19-2024 take 1 tablet by mouth every six hours as needed for pain Hydrocodone-Acetaminophen 5-325 mg table t Discontinued 1 TAB PO Q6H as needed for pain 02 04October 25, 2024 November 19, 2024 10:54am acetylcysteine 600 mg oral capsule (20 sources) Antidote, Mucolytic, Antidote for Acetaminophen Overdose Start: 06-07-2024 End: 11-05-2024 take 1 capsule by mouth once daily Acetylcysteine (Nac) 600 mg capsule Active 1200 MG PO Daily June 07, 2024 12:00am Al Hyd-Mg Tr-Alg Ac-Sod Bicarb 80-14.2 mg tablet,chewable (3 sources) Start: 02-05-2025 Al Hyd-Mg Tr-Alg Ac-Sod Bicarb 80-14.2 mg tablet,chewable Active TAB PO February 05, 2025 12:00am amoxicillin 250 mg / clavulanate 125 mg oral tablet (20 sources) Penicillin-class Antibacterial Start: 02-05-2025 take 1 tablet by mouth twice daily Amoxicillin-Pot Clavulanate 250-125 mg tablet Active 1 TAB PO Twice daily February 05, 2025 12:00am Start: 01-28-2025 End: 02-18-2025 take 1 tablet by mouth twice daily amoxicillin-pot clavulanate (Augmentin) 875-125 mg tablet Indications: Chronic fungal laryngitis , Pre-operative clearance , Ulcerative laryngitis Take 1 tablet by mouth 2 times a day for 21 days. 42 tablet 01/28/2025 02/18/2025 Active Start: 12-09-2021 End: 12-23-2021 take 1 tablet by mouth twice daily Amoxicillin-Pot Clavulanate (Augmentin) 875-125 mg Tablet Discontinued 1 TAB PO Twice daily December 09, 2021 1:00am December 23, 2021 10:38am Aspir-81 (5 sources) Aspir-81 Active aspirin 81 mg chewable tablet (16 sources) Platelet Aggregation Inhibitor, Nonsteroidal Anti-inflammatory Drug Start: 8 take 1 tablet by mouth once daily Aspirin 81 mg Tablet,Chewable Active 81 MG PO Daily February 27, 2018 12:00am Berberine Chloride (2 sources) Start: 4 take 750 mg by mouth once daily Berberine Chloride Active 750 MG PO Daily June 07, 2024 12:00am Berberine Chloride 500 mg capsule (10 sources) Start: 5 take 2 capsules by mouth once daily Berberine Chloride 500 mg capsule Active 1000 MG PO Daily February 05, 2025 10:38am Start: 06-07-2024 End: 02-05-2025 take 3 capsules by mouth once daily Berberine Chloride 500 mg capsule Discontinued 1500 MG PO Daily June 07, 2024 12:00am February 05, 2025 10:44am Start: 06-07-2024 take 3 capsules by m outh once daily Berberine Chloride 500 mg capsule Active 1500 MG PO Daily June 07, 2024 12:00am Start: 06-07-2024 take 3 capsules by m outh once daily Berberine Chloride 500 mg capsule Active 1500 MG PO Daily June 06, 2024 11:00pm Start: 06-07-2024 Berberine Chlo ride 500 mg capsule Active 750 MG PO Daily June 06, 2024 11:00pm Berberine Chloride 500 MG capsule (20 sources) Berberine Chlori de 500 MG capsule Take by mouth Active carvedilol 3.125 mg oral tablet (20 sources) alpha-Adrenergic Lamar, beta-Adrenergic Lamar Start: 07-17-2021 take 1 tablet by mouth in the morning carvedilol (Coreg) 3.125 MG tablet Take 3.125 mg by mouth in the morning and 3.125 mg before bedtime. 07/28/2024 Active Start: 07-17-2021 take 1 tablet by joo th in the morning carvedilol (Coreg) 3.125 MG tablet Take 3.125 mg by mouth in the morning and 3.125 mg before bedtime. 07/28/2024 Active Start: 02-27-2018 End: 03-24-2019 take 1 tablet by mouth twice daily at mealtime Carvedilol (Coreg) 3.125 mg tablet Discontinued 3.125 MG PO Twice daily 60 February 27, 2018 12:00am March 23, 2019 12:00am March 24, 2019 12:02am give with food (meal/snack) cholecalciferol 0.125 mg oral capsule (20 sources) Vitamin D Start: 02-05-2025 take 1 capsule by mouth once daily Cholecalciferol (Vitamin D3) 125 mcg (5,000 unit) capsule Active 125 MCG PO Daily February 05, 2025 12:00am take 1 capsule by mouth once anca ly cholecalciferol (Vitamin D-3) 50 MCG (2000 UT) capsule Take 2,000 Units by mouth Daily Active take 1 capsule by mouth once anca ly cholecalciferol (Vitamin D-3) 50 mcg (2,000 unit) capsule Take 1 capsule (50 mcg) by mouth once daily. Active Vitamin D3 125 M CG (5000 UT) as directed Orally Active Vitamin D3 125 M CG (5000 UT) as directed Orally Active clotrimazole 10 mg oral lozenge (4 sources) Azole Antifungal Start: 02-05-2025 Clotrimazole 10 mg kenia Active 10 MG MUCOUS MEM Five times daily February 05, 2025 12:00am Start: 01-28-2025 End: 02-18-2025 take 1 tablet by mouth five times daily clotrimazole (Mycelex) 10 mg kenia Indications: Chronic fungal laryngitis Take 1 tablet (10 mg) by mouth 5 times a day for 21 days. 105 [place] 01/28/2025 02/18/2025 Active cranberry preparation 500 mg oral capsule (5 sources) Non-Standardized Food Allergenic Extract, Non-Standardized Plant Allergenic Extract Cranberry 500 MG as directed Orally Active DOCEtaxel 10 mg/ml injectable solution (3 sources) Microtubule Inhibitor Start : 02-05 Docetaxel 20 mg/2 mL (10 mg/mL) solution Active IV February 05, 2025 12:00am docusate sodium 100 mg oral capsule (16 sources) Start : 01-21 take 2 capsules by mouth once daily at bedtime Docusate Sodium (Colace) 100 mg Capsule Active 200 MG PO Daily at bedtime January 21, 2022 1:00am famotidine 20 mg oral tablet (20 sources) Histamine-2 Receptor Antagonist Start : 11-05 End: 02-03 take 1 tablet by mouth at bedtime famotidine (Pepcid) 20 MG tablet Indications: LPRD (laryngopharyngeal reflux disease) TAKE 1 TABLET BY MOUTH AT BEDTIME 90 tablet 01/31/2025 Active Fish Oils (20 sources) omega-3 (FISH OI L) 300 MG capsule Take by mouth Daily Active hydroCHLOROthiazide 25 mg oral tablet (20 sources) Thiazide Diuretic Start : 02-27 take 1 tablet by mouth once daily hydroCHLOROthiazide (HYDRODiuril) 25 MG tablet Take 25 mg by mouth Daily 07/28/2024 Active 0.5 ml HYDROmorphone hydrochloride 1 mg/ml prefilled syringe (2 sources) Opioid Agonist Start : 03-22 0.5 mg, intravenous, Every 5 min PRN, pain severe (7-10), first line, Starting on Tue03/22/25 at 1157, Recovery (only), Max total of 4 mg regardless of dose. Start: 03-22-2025 0.2 mg, intrav enous, Every 5 min PRN, pain moderate (4-6), first line, Starting on Tue03/22/25 at 1157, Recovery (only), Max total of 4 mg regardless of dose. losartan potassium 25 mg oral tablet (20 sources) Angiotensin 2 Receptor Lamar Start: 07-17-2021 take 1 tablet by mouth once daily losartan (Cozaar) 25 MG tablet Take 25 mg by mouth Daily 07/28/2024 Active Meperidine (1 source) Opioid Agonist Start: 03-22-2025 12.5 mg, intravenous, Every 10 min PRN, shivering, Starting on Tue03/22/25 at 1157, Recovery (only) 2 ml metoclopramide 5 mg/ml injection (1 source) Dopamine-2 Receptor Antagonist Start: 03-22-2025 10 mg, intravenous, Once as needed, nausea/vomiting, second line, Starting on Tue03/22/25 at 1157, For 1 dose, Recovery (only) Multi Complete - (5 sources) Multi Complete - as directed Orally Active [place] 3-6-9 - (5 sources) [place] 3-6-9 - as directed Orally Active omeprazole 40 mg delayed release oral capsule (20 sources) Proton Pump Inhibitor Start: 11-05-2024 End: 02-03-2025 take 1 capsule by mouth before mealtime omeprazole (PriLOSEC) [address] capsule Indications: LPRD (laryngopharyngeal reflux disease) Take 1 capsule (40 mg) by mouth in the morning. Take before meals. Do not crush or chew.. 90 capsule 11/05/2024 Active 2 ml ondansetron 2 mg/ml injection (20 sources) Serotonin-3 Receptor Antagonist Start: 03-22-2025 4 mg, intravenous, Once as needed, nausea/vomiting, first line, Starting on Tue03/22/25 at 1157, For 1 dose, Recovery (only), When administering via IV Push, administer over 3-5 minutes. Start: 09-27-2024 ondansetron (Z ofran) 8 MG tablet TAKE 1 TABLET EVERY 8 HOURS NEEDED FOR NAUSEA AND VOMITING 09/27/2024 Active Start: 08-05-2021 End: 08-04-2022 take 1 tablet by mouth every eight hours as needed for nausea Ondansetron Hcl 8 mg Tablet Discontinued 8 MG PO Q8H as needed for Nausea August 05, 2021 12:00am August 04, 2022 10:45am oxyCODONE hydrochloride 5 mg oral tablet (1 source) Opioid Agonist Start: 03-22-2025 take 1 tablet by mouth every four hours as needed 5 mg, oral, Every 4 hours PRN, pain mild (1-3), first line, Starting on Tue03/22/25 at 1157, Recovery (only), When able to take oral medications., If ordered PRN for pain, nurse is permitted to administer this medication for higher pain scores based on patient preference? Yes oxygen (O2) therapy (1 source) Start: 03-22-2025 inhalation, Continuous - , First dose on Tue03/22/25 at 1215, Recovery (only), Device: Nasal Cannula, Rate in liters per minute: 3 LPM, Keep O2 Sat Above: 92% predniSONE 10 mg oral tablet (20 sources) Start: 12-01-2022 take 0.5 tablet by mouth once daily predniSONE 10 MG 1/2 tab Orally Once a day Nov, Active Start: 11-04-2022 End: 09-08-2023 take 5 mg by mouth once daily Prednisone 10 mg Tablet Discontinued 5 MG PO Daily November 04, 2022 1:00am September 08, 2023 9:04am Start: 11-04-2022 End: 09-08-2023 take 5 mg by mouth once daily Prednisone Discontinued 5 MG PO Daily November 04, 2022 1:00am September 08, 2023 9:04am Start: 08-04-2022 End: 08-04-2022 Prednisone Discontinued 0 MG PO per package directions August 04, 2022 12:00am August 04, 2022 10:46am Start: 06-29-2022 End: 08-04-2022 Prednisone 10 mg Tablets,Dos e Pack Discontinued 0 MG PO per package directions August 04, 2022 12:00am August 04, 2022 10:46am Start: 12-28-2021 End: 01-21-2022 Prednisone 10 mg Tablet Disc ontinued 10 MG PO Daily December 28, 2021 1:00am January 21, 2022 10:04am 40 mg (4 tabs) x 4 days; 30 mg (3 tabs) x 4 days; 20 mg (2 tabs) x 4 days; then 10 mg x 4 days; then STOP Start: 2021 End: 01-21-2022 take 2 tablets by mouth once daily Prednisone 20 mg Tablet Discontinued 40 MG PO Daily 2021 1:00am January 21, 2022 10:04am Take 2 tabs daily for 5 days Start: 2021 End: 01-21-2022 take 2 tablets by mouth once daily Prednisone Discontinued 40 MG PO Daily 2021 1:00am January 21, 2022 10:04am Take 2 tabs daily for 5 days 10 ml ramucirumab 10 mg/ml injection (20 sources) Vascular Endothelial Growth Factor Receptor 2 Antagonist Start: 02-05-2025 Ramucirumab 10 mg/mL solution Active IV February 05, 2025 12:00am ramucirumab ([place] amza) 100 MG/10ML solution Infuse into a venous catheter Active ramucirumab ([place] amza) 10 mg/mL solution Infuse into a venous catheter. Active simvastatin 80 mg oral tablet (20 sources) HMG-CoA Reductase Inhibitor Start: 07-28-2024 take 1 tablet by mouth at bedtime simvastatin (Zocor) 80 MG tablet Take 80 mg by mouth at bedtime 07/28/2024 Active Start: 02-26-2018 take 2 tablets by mo ut once daily at bedtime Simvastatin (Zocor) 40 mg tablet Active 80 MG PO Daily at bedtime February 26, 2018 12:00am Start: 02-26-2018 take 1 tablet by joo once daily Simvastatin (Zocor) 40 mg tablet Active 40 MG PO Daily February 26, 2018 12:00am sulfamethoxazole 400 mg / trimethoprim 80 mg oral tablet (1 source) Dihydrofolate Reductase Inhibitor Antibacterial, Sulfonamide Antimicrobial Start: 04-15-2025 End: 04-29-2025 take 1 tablet by mouth twice daily sulfamethoxazole-trimethoprim (Bactrim) 400-80 mg tablet Indications: Ulcerative laryngitis Take 1 tablet by mouth 2 times a day for 14 days. 28 tablet 04/15/2025 04/29/2025 Active Vitamin D3 125 MCG (5000 UT) (3 sources) Vitamin D3 125 M CG (5000 UT) as directed Orally Active zinc gluconate 50 mg oral tablet (5 sources) take 1 tablet by mouth every twenty-f our hours Zinc 50 MG 1 tablet Orally Once a day Active Completed/Discontinued Medications Medication Drug Class(es) Dates Sig (Normalized) Sig (Original) acetaminophen 325 mg / oxyCODONE hydrochloride 5 mg oral tablet (20 sources) Opioid Agonist Start: 09-15-2021 End: 08-04-2022 take 1 tablet by mouth every four to six hours as needed for pain Oxycodone-Acetaminop hen (Percocet) 5-325 mg Tablet Discontinued 1 TAB PO EVERY 4-6 HOURS as needed for Pain 90 April 20, 2022 12:55pm August 04, 2022 10:45am azithromycin 250 mg oral tablet (16 sources) Macrolide Antimicrobial Start: 10-07-2021 End: 12-23-2021 take 2-5 tablets by mouth once daily Azithromycin 250 mg tablet Discontinued 0 PO .COMPLEX October 07, 2021 1:00am December 23, 2021 10:38am take 500 mg today (day 1), then 250 mg for 4 days (days 2-5) benzonatate 100 mg oral capsule (9 sources) Non-narcotic Antitussive Start: 10-17-2024 End: 02-05-2025 take 1 capsule by mouth three times daily as needed for cough Benzonatate 100 mg capsule Discontinued 100 MG PO Three times daily as needed for cough October 17, 2024 1:00am February 05, 2025 10:38am cephalexin 500 mg oral capsule (10 sources) Cephalosporin Antibacterial Start: 03-12-2024 End: 06-07-2024 take 1 capsule by mouth four times daily Cephalexin 500 mg capsule Discontinued 500 MG PO Four times daily 10 06March 12, 2024 12:00am June 07, 2024 10:19am Dihydroberberine (Berberine Es-5) 200 mg capsule (7 sources) Start: 09-27-2024 End: 10-25-2024 Dihydroberberine (Berberine Es-5) 200 mg capsule Discontinued MG PO September 27, 2024 1:00am October 25, 2024 12:46pm Start: 09-27-2024 End: 10-25-2024 Dihydroberberine (Berberine Es-5) 200 mg capsule Discontinued MG PO September 27, 2024 12:00am October 25, 2024 11:46am Start: 09-27-2024 Dihydroberberi ne (Berberine Es-5) 200 mg capsule Active MG PO September 27, 2024 12:00am diphenhydrAMINE citrate 38 mg / ibuprofen 200 mg oral tablet (16 sources) Histamine-1 Receptor Antagonist, Nonsteroidal Anti-inflammatory Drug Start: 08-27-2021 End: 01-21-2022 take 2 capsules by mouth once daily at bedtime Ibuprofen-Diphenhydramine Cit (Advil Pm) 200-38 mg Tablet Discontinued 2 CAP PO Daily at bedtime August 27, 2021 12:00am January 21, 2022 10:03am fluconazole 100 mg oral tablet (11 sources) Azole Antifungal Start: 12-12-2024 End: 02-05-2025 take 1 tablet by mouth once daily Fluconazole (Diflucan) 100 mg tablet Discontinued 100 MG PO Daily December 12, 2024 1:00am February 05, 2025 10:38am Start: 11-08-2024 End: 11-19-2024 take 1 tablet by mouth once daily Fluconazole (Diflucan) 100 mg tablet Discontinued 100 MG PO Daily November 08, 2024 1:00am November 19, 2024 10:54am Hyaluronic Xj-Etxbeblis-Ezbu (Radiaplexrx) Gel (20 sources) Start: 09-15-2021 End: 08-04-2022 Hyaluronic Vj-Yighapahk-Nzrj (Radiaplexrx) Gel Discontinued 1 APPLIC TOPICAL Three times daily September 14, 2021 11:00pm August 04, 2022 9:44am Start: 09-15-2021 End: 08-04-2022 Hyaluronic Kv-Qhnwwbecy-Uksj (Radiaplexrx) Gel Discontinued 1 APPLIC TOPICAL Three times daily September 15, 2021 12:00am August 04, 2022 10:44am Start: 09-15-2021 Hyaluronic Na- Allantoin-Aloe (Radiaplexrx) Gel Active 1 APPLIC TOPICAL Three times daily September 15, 2021 12:00am Start: 08-25-2021 End: 08-04-[address]-Onuvvahqu-Jvgo (Radiaplexrx) Gel Discontinued 1 APPLIC TOPICAL Three times daily August 24, 2021 11:00pm August 04, 2022 9:44am Start: 08-25-2021 End: 08-04-2022 Hyaluronic Bw-Vaqghbdzu-Agxp (Radiaplexrx) Gel Discontinued 1 APPLIC TOPICAL Three times daily August 25, 2021 12:00am August 04, 2022 10:44am Start: 08-25-2021 Hyaluronic Na- Allantoin-Aloe (Radiaplexrx) Gel Active 1 APPLIC TOPICAL Three times daily August 25, 2021 12:00am hydrocortisone 10 mg/ml topical cream (16 sources) Corticosteroid Start: 08-25-2021 End: 08-04-2022 Hydrocortisone 1 % Cream Discontinued 1 APPLIC TOPICAL Three times daily August 25, 2021 12:00am August 04, 2022 10:45am levoFLOXacin 750 mg oral tablet (16 sources) Quinolone Antimicrobial Start: 02-27-2018 End: 03-06-2018 take 1 tablet by mouth once daily Levofloxacin (Levaquin) 750 mg tablet Discontinued 750 MG PO Daily 7 7 February 27, 2018 12:00am March 05, 2018 12:00am March 06, 2018 12:01am lisinopril 10 mg oral tablet (20 sources) Angiotensin Converting Enzyme Inhibitor Start: 02-26-2018 End: 07-17-2021 Lisinopril 10 mg tablet Discontinued TABLET February 26, 2018 12:00am February 26, 2018 12:32am methylPREDNISolone 4 mg oral tablet (20 sources) Corticosteroid Start: 06-07-2022 End: 08-04-2022 Methylprednisolone (Medrol (Cb)) 4 mg Tablets,Dose Pack Discontinued 4 MG PO As Directed June 07, 2022 3:30pm August 04, 2022 10:46am medrol dose pack take as directed with each chemo cycle Start: 01-21-2022 End: 05-05-2022 Methylprednisolone (Medrol ( Cb)) 4 mg Tablets,Dose Pack Discontinued 4 MG PO As Directed February 17, 2022 11:28am May 05, 2022 9:32am Take as directed with each chemotherapy treatment Omeprazole Magnesium (Prilosec Otc) 20 mg Tablet,Delayed Release (Dr/Ec) (16 sources) Start: 09-10-2021 End: 01-21-2022 take 1 tablet by mouth once daily Omeprazole Magnesium (Prilosec Otc) 20 mg Tablet,Delayed Release (Dr/Ec) Discontinued 20 MG PO Daily September 09, 2021 11:00pm January 21, 2022 9:03am Start: 09-10-2021 End: 01-21-2022 take 1 tablet by mouth once daily Omeprazole Magnesium (Prilosec Otc) 20 mg Tablet,Delayed Release (Dr/Ec) Discontinued 20 MG PO Daily September 10, 2021 12:00am January 21, 2022 10:03am potassium chloride 20 meq extended release oral tablet (14 sources) Start: 09-08-2023 End: 03-08-2024 take 1 tablet by mouth once daily Potassium Chloride 20 mEq Tablet Extended Release Discontinued 20 MEQ PO Daily September 08, 2023 12:00am March 08, 2024 9:04am Potassium Chlori de Active Sucralfate (9 sources) Aluminum Complex Start: 08-27-2021 End: 01-21-2022 take 1 mL by mouth four times daily Sucralfate Discontinued 5 ML PO Four times daily August 27, 2021 12:00am January 21, 2022 10:04am swish in mouth and swallow; use after food/drink Sucralfate 100 mg/mL Suspension (7 sources) Start: 08-27-2021 End: 01-21-2022 take 1 mL by mouth four times daily Sucralfate 100 mg/mL Suspension Discontinued 5 ML PO Four times daily 600 August 27, 2021 12:00am January 21, 2022 10:04am swish in mouth and swallow; use after food/drink Start: 08-27-2021 End: 01-21-2022 take 1 mL by mouth four times daily Sucralfate 100 mg/mL Suspension Discontinued 5 ML PO Four times daily 600 August 26, 2021 11:00pm January 21, 2022 9:04am swish in mouth and swallow; use after food/drink Problems Active Problems Problem Classification Problem Date Documented Da te Episodic/Chronic Administrative/social admission (20 sources) Patient encounter status; Translations: [Other specified counseling] 11-04-2022 Episodic Calculus of urinary tract (20 sources) [place]aghorn calculus; Translations: [Calculus of kidney] 05-05-2023 Episodic Cancer of bronchus; lung (20 sources) 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; Translations: [Malignant neoplasm of overlapping sites of right bronchus and lung] Onset: 4 10-15-2021 Chronic Chronic obstructive pulmonary disease and bronchiectasis (10 sources) Traction bronchiectasis; Translations: [Bronchiectasis, uncomplicated] Chronic Coronary atherosclerosis and other heart disease (16 sources) Preinfarction syndrome; Translations: [Unstable angina] 02-27-2018 Chronic Deficiency and other anemia (1 source) Anemia, unspecified; Translations: [ANEMIA UNSPECIFIED] Onset: 1 Episodic Disorders of lipid metabolism (7 sources) Pure hypercholesterolemia, unspecified; Translations: [Hyperlipidemia] Onset: 1 01-31-2025 Chronic Esophageal disorders (5 sources) Laryngopharyngeal reflux; Translations: [Gastro-esophageal reflux disease without esophagitis] Onset: 5 11-05-2024 Chronic Esophageal disorders (20 sources) Radiation esophagitis; 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] 10-14-2021 Episodic Essential hypertension (4 sources) Essential (primary) hypertension; Translations: [Hypertensive disorder] Onset: 1 03-21-2025 Chronic Fluid and electrolyte disorders (20 sources) Hypokalemia; Translations: [Hypokalemia] 05-05-2023 Episodic Hypertension with complications and secondary hypertension (19 sources) Hypertensive emergency; Translations: [Hypertensive emergency] 07-17-2021 Chronic Maintenance chemotherapy; radiotherapy (20 sources) Patient encounter status; Translations: [Encounter for antineoplastic chemotherapy] 08-12-2021 Chronic Mycoses (20 sources) Candidiasis of mouth and esophagus; Translations: [Candidal esophagitis] Onset: 5 11-09-2024 Episodic Nonspecific chest pain (20 sources) Chest pain; Translations: [Chest pain, unspecified] 07-17-2021 Episodic Other and unspecified benign neoplasm (1 source) Benign neoplasm of transverse colon; Translations: [BENIGN NEOPLASM OF TRANSVERSE COLON] Onset: Episodic Other gastrointestinal disorders (3 sources) Diarrhea; Translations: [Diarrhea, unspecified] 11-19-2024 Episodic Other gastrointestinal disorders (15 sources) Diarrhea, unspecified; Translations: [Diarrhea] 11-19-2024 Episodic Other lower respiratory disease (14 sources) Fibrosis of lung; Translations: [Pulmonary fibrosis, unspecified] 05-29-2024 Chronic Other lower respiratory disease (6 sources) Pulmonary fibrosis, unspecified; 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 Other lower respiratory disease (16 sources) Respiratory tract infection; Translations: [Other specified respiratory disorders] 07-17-2021 Episodic Other lower respiratory disease (16 sources) Lung mass; Translations: [Other nonspecific abnormal finding of lung field] 07-17-2021 Episodic Other lower respiratory disease (20 sources) Other disorders of lung; Translations: [Pneumonia, organism unspecified] 03-08-2024 Episodic Other nervous system disorders (3 sources) Acute postoperative pain; Translations: [Other acute postprocedural pain] 10-25-2024 Episodic Other nutritional; endocrine; and metabolic disorders (3 sources) Obesity; Translations: [Obesity, unspecified] Onset: 5 03-22-2025 Chronic Other screening for suspected conditions (not mental disorders or infectious disease) (20 sources) Encounter for screening for malignant neoplasm of colon; Translations: [Electrocardiogram abnormal] Onset: 1 Episodic Other upper respiratory disease (1 source) Chronic fungal laryngitis; Translations: [Chronic laryngitis] 01-28-2025 Chronic Other upper respiratory disease (2 sources) Chronic laryngitis; Translations: [Chronic laryngitis] Onset: Chronic Other upper respiratory disease (13 sources) Bleeding from nose; Translations: [Epistaxis] 10-14-2021 Episodic Other upper respiratory disease (20 sources) Epistaxis; Translations: [Epistaxis] 07-07-2022 Episodic Other upper respiratory disease (2 sources) Pain in throat; Translations: [Pain in throat] 11-05-2024 Episodic Other upper respiratory disease (4 sources) Hoarse; Translations: [Dysphonia] 11-05-2024 Episodic Other upper respiratory disease (2 sources) Lesion of vocal cord; Translations: [Other diseases of vocal cords] 12-11-2024 Episodic Other upper respiratory disease (1 source) Senile voice; Translations: [Other diseases of larynx] 01-28-2025 Episodic Other upper respiratory disease (5 sources) Dysphonia; Translations: [Dysphonia] Onset: 5 01-28-2025 Episodic Other upper respiratory disease (4 sources) Leukoplakia of larynx; Translations: [Other diseases of larynx] Onset: 5 03-22-2025 Episodic Other upper respiratory disease (4 sources) Other diseases of larynx; Translations: [Other diseases of larynx] Onset: Episodic Other upper respiratory disease (1 source) Vocal fatigue; Translations: [Other voice and resonance disorders] 04-17-2025 Episodic Other upper respiratory disease (2 sources) Voice finding; Translations: [Other voice and resonance disorders] Onset: 5 04-17-2025 Episodic Other upper respiratory disease (1 source) Other voice and resonance disorders; Translations: [Other voice and resonance disorders] Onset: Episodic Other upper respiratory disease (1 source) Dysphonia; Translations: [Dysphonia] Onset: Episodic Other upper respiratory infections (11 sources) Ulcerative laryngitis; Translations: [Acute laryngitis] Onset: 5 01-28-2025 Episodic Pleurisy; pneumothorax; pulmonary collapse (1 source) Pleurisy Episodic Pneumonia (except that caused by tuberculosis or sexually transmitted disease) (20 sources) Drug-induced pneumonitis; Translations: [Pneumonia, unspecified organism] 01-22-2022 Episodic Residual codes; unclassified (2 sources) Preoperative state 01-28-2025 Episodic Residual codes; unclassified (1 source) Does not use respiratory support for voice; Translations: [Other specified health status] 01-28-2025 Episodic Residual codes; unclassified (2 sources) Other specified health status; Translations: [Other specified health status] Onset: 5 Episodic Screening and history of mental health and substance abuse codes (11 sources) Personal history of nicotine dependence; Translations: [Tobacco use and exposure - finding] Episodic Comment on above: quit in 2001 Spondylosis; intervertebral disc disorders; other back problems (20 sources) Cervical spondylosis; Translations: [Other spondylosis with myelopathy, cervical region] Onset: 3 11-01-2024 Chronic Spondylosis; intervertebral disc disorders; other back problems (10 sources) Acute low back pain; Translations: [Acute right-sided low back pain] 03-12-2024 Episodic Substance-related disorders (1 source) Nicotine dependence, cigarettes, uncomplicated; Translations: [NICOTINE DEPEND CIGARETTES UNCOMP] Onset: 1 Chronic Unclassified (1 source) CONTACT W/AND (SUSP) EXPOS COVID-19; Translations: [CONTACT W/AND (SUSP) EXPOS COVID-19] Onset: 1 Urinary tract infections (10 sources) Bacterial urinary infection; Translations: [Urinary tract infection, site not specified] 03-12-2024 Episodic Past or Other Problems Problem Classification Problem Date Documented Date Episodic/Chronic Other connective tissue disease (4 sources) Pain in right foot; Translations: [PAIN IN RIGHT FOOT] Onset: 10-01-2020 Episodic Other diseases of veins and lymphatics (20 sources) Vascular insufficiency; Translations: [Venous insufficiency (chronic) (peripheral)] Onset: 10-17-2024 10-17-2024 Episodic Other diseases of veins and lymphatics (20 sources) Difficult venous access; Translations: [Other specified disorders of veins] Onset: 10-17-2024 10-17-2024 Episodic Other non-traumatic joint disorders (1 source) Pain in right ankle and joints of right foot; Translations: [PAIN IN RIGHT ANKLE] Onset: 10-06-2020 Episodic Results Test Name Value Interpretation Reference Range Facility Creatinine (U) [Mass/Vol]on 04-24-2025 Creatinine spec 2 (U) [Mass/Vol] 101 mg/dL [facility] Comment on above: No reference range e stablished Creatinine, Urine (Random)on 04-24-2025 Creatinine, Urine (Random) 101.00 mg/dL Normal [facility] Comment on above: Result Comment: No r eference range established Performed By: #### U RTP, UCREA #### [address] No Panel Informationon 04-24 [facility] TOTAL PROTEIN, URINEon 04-24 Protein (U) [Mass/Vol] 8 mg/dL 0 - 9 mg/dL N [facility] Total Protein, Urineon 04-24 Protein (U) [Mass/Vol] 8 mg/dL Normal 0-9 [facility] Comment on above: Result Comment: PERF ORMED BY: [place] [address] PATHOLOGIST [employer] DANIEL HERNANDEZ M.D. Performed By: #### U RTP, UCREA #### [address] CBC W Auto Differential pane l (Bld)on 04-23-2025 Basophils (Bld) [#/Vol] 0 10*3/uL 0.0 - 0.2 10*3/uL [facility] Basophils/100 WBC Manual cnt (Syn fld) 0.3 % . [facility] Eosinophils (Bld) [#/Vol] 0.1 10*3/uL 0.0 - 0.45 10*3/uL [facility] Eosinophils/100 WBC Manual cnt (Syn fld) 1 % . [facility] Erythrocyte distribution width (RBC) [Ratio] 20.1 % High 12.0 - 14.8 % [facility] Hematocrit (Bld) [Volume fraction] 42.6 % 38.8 - 50.0 % [facility] Hemoglobin (Bld) [Mass/Vol] 14.3 g/dL 13.0 - 17.0 g/dL [facility] Interpretation and review of laboratory results Abnormal [facility] Lymphocytes (Bld) [#/Vol] 2.1 10*3/uL 1.00 - 4.8 10*3/uL [facility] Lymphocytes/100 WBC Manual cnt (Syn fld) 20.4 % . [facility] MCH (RBC) [Entitic mass] 28.4 pg 27. 5 - 35.2 pg [facility] MCHC (RBC) [Mass/Vol] 33.5 g/dL 32.5 - 35.6 g/dL [facility] MCV (RBC) [Entitic vol] 84.6 fL 83.5 - 101 f L [facility] Monocytes (Bld) [#/Vol] 1.4 10*3/uL High 0.0 - 0.8 10*3/uL [facility] Monocytes+Macrophages/10 0 WBC Manual cnt (Syn fld) 13.6 % . [facility] Neutrophils (Bld) [#/Vol] 6.6 10*3/uL 1.8 - 7.7 10*3/uL [facility] Neutrophils/100 WBC Manual cnt (Syn fld) 64.7 % . [facility] NRBC 0.1 /100{WBC} 0 - 0.5 /100{WBC} [facility] Platelet mean volume (Bld) [Entitic vol] 7.2 fL 6.6 - 10.1 fL [facility] Platelets (Bld) [#/Vol] 368 10*3/uL 150 - 450 10*3/uL [facility] RBC LM.HPF (Urine sed) [#/Area] 5.04 10*6/uL 3.90 - 5.60 10*6/uL [facility] WBC (Bld) [#/Vol] 10.2 10*3/uL 4.1 - 10.5 10*3/uL [facility] WBC LM.HPF (Urine sed) [#/Area] 10.2 10*3/uL 4.1 - 10.5 10*3/uL [facility] Complete Blood Count Auto Di ffon 04-23-2025 Basophils (Bld) [#/Vol] 0.0 10*3/uL Normal 0.0-0.2 [facility] Comment on above: Result Comment: PERF ORMED BY: [facility] [address] [place] [address] PATHOLOGIST [employer] DANIEL HERNANDEZ M.D. Performed By: #### C MP, CBC #### [facility] [address] [place] [address] [place] Basophils/100 WBC (Bld) 0.3 % Normal . [facility] Comment on above: Performed By: #### C MP, CBC #### [facility] [address] [place] [address] [place] Eosinophils (Bld) [#/Vol] 0.1 10*3/uL Normal 0.0-0.45 [facility] Comment on above: Performed By: #### C MP, CBC #### [facility] [address] [place] [address] [place] Eosinophils/100 WBC (Bld) 1.0 % Normal . [facility] Comment on above: Performed By: #### C MP, CBC #### [address] Erythrocyte distribution width (RBC) [Ratio] 20.1 % High 12.0-14.8 [facility] Comment on above: Performed By: #### C MP, CBC #### [facility] [address] [place] [address] [place] Hematocrit (Bld) [Volume fraction] 42.6 % Normal 38.8-50.0 [facility] Comment on above: Performed By: #### C MP, CBC #### [facility] [address] [place] [address] [place] Hemoglobin (Bld) [Mass/Vol] 14.3 g/dL Normal 13.0-17.0 [facility] Comment on above: Performed By: #### C MP, CBC #### [facility] [address] [place] [address] [place] Lymphocytes (Bld) [#/Vol] 2.1 10*3/uL Normal 1.00-4.8 [facility] Comment on above: Performed By: #### C MP, CBC #### [facility] [address] [place] [address] [place] Lymphocytes/100 WBC (Bld) 20.4 % Normal . [facility] Comment on above: Performed By: #### C MP, CBC #### [facility] [address] MCH (RBC) [Entitic mass] 28.4 pg Normal 27.5-35.2 [facility] Comment on above: Performed By: #### C MP, CBC #### [facility] [address] MCV (RBC) [Entitic vol] 84.6 fL Normal 83.5-101 [facility] Comment on above: Performed By: #### C MP, CBC #### [facility] [address] Mean Corpuscular HGB Conc 33.5 g/dL Normal 32.5-35.6 [facility] Comment on above: Performed By: #### C MP, CBC #### [facility] [address] [place] [address] [place] Monocytes (Bld) [#/Vol] 1.4 10*3/uL High 0.0-0.8 [facility] Comment on above: Performed By: #### C MP, CBC #### [facility] [address] [place] [address] [place] Monocytes/100 WBC (Bld) 13.6 % Normal . [facility] Comment on above: Performed By: #### C MP, CBC #### [facility] [address] Neutrophils (Bld) [#/Vol] 6.6 10*3/uL Normal 1.8-7.7 [facility] Comment on above: Performed By: #### C MP, CBC #### [facility] [address] [place] [address] [place] Neutrophils/100 WBC (Bld) 64.7 % Normal . [facility] Comment on above: Performed By: #### C MP, CBC #### [facility] [address] NRBC% 0.1 /100{WBC} Normal 0-0.5 [facility] Comment on above: Performed By: #### C MP, CBC #### [address] Platelet mean volume (Bld) [Entitic vol] 7.2 fL Normal 6.6-10.1 [facility] Comment on above: Performed By: #### C MP, CBC #### [address] Platelets (Bld) [#/Vol] 368 10*3/uL Normal 150-450 [facility] Comment on above: Performed By: #### C MP, CBC #### [address] RBC (Bld) [#/Vol] 5.04 10*6/uL Normal 3.90-5.60 [facility] Comment on above: Performed By: #### C MP, CBC #### [address] WBC (Bld) [#/Vol] 10.2 10*3/uL Normal 4.1-10.5 [facility] Comment on above: Performed By: #### C MP, CBC #### [address] Comprehensive Metabolic Pane hanna 04-23-2025 Albumin [Mass/Vol] 3.9 g/dL Normal 3.5-5.7 [facility] Comment on above: Performed By: #### C MP, CBC #### [address] Albumin/Globulin [Mass ratio] 1.3 {ratio} Normal [facility] Comment on above: Performed By: #### C MP, CBC #### [address] ALP [Catalytic activity/Vol] 54 U/L Normal 34-104 [facility] Comment on above: Performed By: #### C MP, CBC #### [address] ALT [Catalytic activity/Vol] 20 U/L Normal 7-52 [facility] Comment on above: Performed By: #### C MP, CBC #### [facility] [address] Anion gap [Moles/Vol] 11.3 mmol/L Normal 6.0-15.0 [facility] Comment on above: Performed By: #### C MP, CBC #### [facility] [address] AST [Catalytic activity/Vol] 20 U/L Normal 13-39 [facility] Comment on above: Performed By: #### C MP, CBC #### [address] Bilirubin [Mass/Vol] 0.4 mg/dL Normal 0.3-1.0 [facility] Comment on above: Performed By: #### C MP, CBC #### [address] Calcium [Mass/Vol] 9.5 mg/dL Normal 8.6-10.3 [facility] Comment on above: Performed By: #### C MP, CBC #### [place] [address] [place] Chloride [Moles/Vol] 104 mmol/L Normal 98-107 [facility] Comment on above: Performed By: #### C MP, CBC #### [address] CO2 [Moles/Vol] 26.0 mmol/L Normal 21.0-31.0 [facility] Comment on above: Performed By: #### C MP, CBC #### [place] [address] [place] Creatinine [Mass/Vol] 1.02 mg/dL Normal 0.70-1.30 [facility] Comment on above: Performed By: #### C MP, CBC #### [place] [address] [place] Creatinine Clr Calc Pharmacy 81.38 Normal [facility] Comment on above: Result Comment: PERF ORMED BY: [place] [address] PATHOLOGIST [employer] DANIEL HERNANDEZ M.D. Performed By: #### C MP, CBC #### [place] [address] [place] GFR/1.73 sq M.predicted MDRD (S/P/Bld) [Vol rate/Area] mL/min/{1.73_m2} Normal [facility] Comment on above: Performed By: #### C MP, CBC #### [address] Globulin (S) [Mass/Vol] 3.1 g/dL Normal [facility] Comment on above: Performed By: #### C MP, CBC #### [address] Glucose [Mass/Vol] 92 mg/dL Normal 70-100 [facility] Comment on above: Result Comment: [place] Glucose Reference Range is dependent on time and content of last meal. Glucose of more than 200 mg/dL in a nonstressed, ambulatory subject supports the diagnosis of Diabetes Mellitus. ADA recommended reference range Performed By: #### C MP, CBC #### [place] [address] [place] Potassium [Moles/Vol] 4.3 mmol/L Normal 3.5-5.1 [facility] Comment on above: Performed By: #### C MP, CBC #### [place] [address] [place] Protein [Mass/Vol] 7.0 g/dL Normal 6.4-8.9 [facility] Comment on above: Performed By: #### C MP, CBC #### [place] [address] [place] Sodium [Moles/Vol] 137 mmol/L Normal 136-145 [facility] Comment on above: Performed By: #### C MP, CBC #### [address] Urea nitrogen [Mass/Vol] 11 mg/dL Normal 7-25 [facility] Comment on above: Performed By: #### C MP, CBC #### [facility] [address] [place] [id number] [facility] Comprehensive metabolic pane hanna 04-23-2025 Albumin [Mass/Vol] 3.9 g/dL 3.5 - 5.7 g/dL [facility] Albumin/Globulin [Mass ratio] 1.3 {ratio} [facility] ALP [Catalytic activity/Vol] 54 U/L 34 - 104 U/L [facility] ALT [Catalytic activity/Vol] 20 U/L 7 - 52 U/L [facility] Anion gap [Moles/Vol] 11.3 mmol/L 6.0 - 15.0 meq/L [facility] AST [Catalytic activity/Vol] 20 U/L 13 - 39 U/L [facility] Bilirubin [Mass/Vol] 0.4 mg/dL 0.3 - 1 .0 mg/dL [facility] Calcium [Mass/Vol] 9.5 mg/dL 8.6 - 10. 3 mg/dL [facility] Chloride [Moles/Vol] 104 mmol/L 98 - 10 7 mmol/L [facility] CO2 [Moles/Vol] 26 mmol/L 21.0 - 31.0 mmol/L [facility] Creatinine (U) [Mass/Vol] 1.02 mg/dL 0.70 - 1.30 mg/dL [facility] CREATININE CLR CALC PHARMACY 81.38 [facility] ESTIMATED GFR mL/Min [facility] Globulin (S) [Mass/Vol] 3.1 g/dL N [facility] Glucose [Mass/Vol] 92 mg/dL 70 - 100 mg/dL [facility] Comment on above: Random Glucose Refer ence Range is dependent on time and content of last meal. Glucose of more than 200 mg/dL in a nonstressed, ambulatory subject supports the diagnosis of Diabetes Mellitus. ADA recommended reference range Potassium [Moles/Vol] 4.3 mmol/L 3.5 - 5.1 mmol/L [facility] Protein [Mass/Vol] 7 g/dL 6.4 - 8.9 g/dL [facility] Sodium [Moles/Vol] 137 mmol/L 136 - 145 mmol/L [facility] Urea nitrogen [Mass/Vol] 11 mg/dL 7 - 25 mg/d L [facility] Creatinine (U) [Mass/Vol]on 04-03-2025 Creatinine spec 2 (U) [Mass/Vol] 74 mg/dL [facility] Comment on above: No reference range e stablished Creatinine spec 2 (U) [Mass/Vol] 125 mg/dL [facility] Comment on above: No reference range e stablished Creatinine, Urine (Random)on 04-03-2025 Creatinine, Urine (Random) 74.00 mg/dL Normal [facility] Comment on above: Result Comment: No r eference range established Performed By: #### U CREA, URTP #### [address] Creatinine, Urine (Random) 125.00 mg/dL Normal [facility] Comment on above: Result Comment: No r eference range established Performed By: #### U RTP, UCREA #### [address] No Panel Informationon 04-03 [facility] TOTAL PROTEIN, URINEon 04-03 Interpretation and review of laboratory results Abnormal [facility] Protein (U) [Mass/Vol] 22 mg/dL High 0 - 9 mg/dL N [facility] Total Protein, Urineon 04-03 Protein (U) [Mass/Vol] 7 mg/dL Normal 0-9 [facility] Comment on above: Result Comment: PERF ORMED BY: [place] [address] PATHOLOGIST [employer] LION MURDCOK M.D. Performed By: #### U CREA, URTP #### [address] Protein (U) [Mass/Vol] 22 mg/dL High 0-9 [facility] Comment on above: Result Comment: PERF ORMED BY: [place] [address] PATHOLOGIST [employer] LION MURDOCK M.D. Performed By: #### U RTP, UCREA #### [address] CBC W Auto Differential pane l (Bld)on 04-02-2025 Basophils (Bld) [#/Vol] 0.1 10*3/uL 0.0 - 0.2 10*3/uL [facility] Basophils/100 WBC Manual cnt (Syn fld) 1.2 % . [facility] Eosinophils (Bld) [#/Vol] 0.1 10*3/uL 0.0 - 0.45 10*3/uL [facility] Eosinophils/100 WBC Manual cnt (Syn fld) 0.9 % . [facility] Erythrocyte distribution width (RBC) [Ratio] 21 % High 12.0 - 14.8 % [facility] Hematocrit (Bld) [Volume fraction] 39.1 % 38.8 - 50.0 % [facility] Hemoglobin (Bld) [Mass/Vol] 12.9 g/dL Low 13.0 - 17.0 g/dL [facility] Interpretation and review of laboratory results Abnormal [facility] Lymphocytes (Bld) [#/Vol] 2 10*3/uL 1.00 - 4.8 10*3/uL [facility] Lymphocytes/100 WBC Manual cnt (Syn fld) 18.2 % . [facility] MCH (RBC) [Entitic mass] 27.8 pg 27. 5 - 35.2 pg [facility] MCHC (RBC) [Mass/Vol] 33 g/dL 32.5 - 35.6 g/dL [facility] MCV (RBC) [Entitic vol] 84.4 fL 83.5 - 101 f L [facility] Monocytes (Bld) [#/Vol] 1.3 10*3/uL High 0.0 - 0.8 10*3/uL [facility] Monocytes+Macrophages/10 0 WBC Manual cnt (Syn fld) 12.5 % . [facility] Neutrophils (Bld) [#/Vol] 7.3 10*3/uL 1.8 - 7.7 10*3/uL [facility] Neutrophils/100 WBC Manual cnt (Syn fld) 67.2 % . [facility] NRBC 0.1 /100{WBC} 0 - 0.5 /100{WBC} [facility] Platelet mean volume (Bld) [Entitic vol] 7.3 fL 6.6 - 10.1 fL [facility] Platelets (Bld) [#/Vol] 312 10*3/uL 150 - 450 10*3/uL [facility] RBC LM.HPF (Urine sed) [#/Area] 4.63 10*6/uL 3.90 - 5.60 10*6/uL [facility] WBC (Bld) [#/Vol] 10.8 10*3/uL High 4.1 - 10.5 10*3/uL [facility] WBC LM.HPF (Urine sed) [#/Area] 10.8 10*3/uL High 4.1 - 10.5 10*3/uL [facility] Complete Blood Count Auto Di ffon 04-02-2025 Basophils (Bld) [#/Vol] 0.1 10*3/uL Normal 0.0-0.2 [facility] Comment on above: Result Comment: PERF ORMED BY: [place] [address] PATHOLOGIST [employer] LION MURDOCK M.D. Performed By: #### U RTP, UCREA #### [address] Basophils/100 WBC (Bld) 1.2 % Normal . T rachel [facility] Comment on above: Performed By: #### U RTP, UCREA #### [address] Eosinophils (Bld) [#/Vol] 0.1 10*3/uL Normal 0.0-0.45 [facility] Comment on above: Performed By: #### U RTP, UCREA #### [address] Eosinophils/100 WBC (Bld) 0.9 % Normal . [facility] Comment on above: Performed By: #### U RTP, UCREA #### [address] Erythrocyte distribution width (RBC) [Ratio] 21.0 % High 12.0-14.8 [facility] Comment on above: Performed By: #### U RTP, UCREA #### [address] Hematocrit (Bld) [Volume fraction] 39.1 % Normal 38.8-50.0 [facility] Comment on above: Performed By: #### U RTP UCREA #### [address] Hemoglobin (Bld) [Mass/Vol] 12.9 g/dL Low 13.0-17.0 [facility] Comment on above: Performed By: #### U RTP UCREA #### [address] Lymphocytes (Bld) [#/Vol] 2.0 10*3/uL Normal 1.00-4.8 [facility] Comment on above: Performed By: #### U RTP UCREA #### [address] Lymphocytes/100 WBC (Bld) 18.2 % Normal . [facility] Comment on above: Performed By: #### U RTP UCREA #### [address] MCH (RBC) [Entitic mass] 27.8 pg Normal 27.5-35.2 [facility] Comment on above: Performed By: #### U RTP UCREA #### [address] MCV (RBC) [Entitic vol] 84.4 fL Normal 83.5-101 T [facility] Comment on above: Performed By: #### U RTP UCREA #### [address] Mean Corpuscular HGB Conc 33.0 g/dL Normal 32.5-35.6 [facility] Comment on above: Performed By: #### U RTP, UCREA #### [address] Monocytes (Bld) [#/Vol] 1.3 10*3/uL High 0.0-0.8 [facility] Comment on above: Performed By: #### U RTP, UCREA #### [facility] [address] [place] [id number] [place] Monocytes/100 WBC (Bld) 12.5 % Normal . T rachel [facility] Comment on above: Performed By: #### U RTP, UCREA #### [facility] [address] [place] [address] [place] Neutrophils (Bld) [#/Vol] 7.3 10*3/uL Normal 1.8-7.7 [facility] Comment on above: Performed By: #### U RTP, UCREA #### [facility] [address] [place] [address] [place] Neutrophils/100 WBC (Bld) 67.2 % Normal . [facility] Comment on above: Performed By: #### U RTP, UCREA #### [facility] [address] [place] [address] [place] NRBC% 0.1 /100{WBC} Normal 0-0.5 The [facility] Comment on above: Performed By: #### U RTP, UCREA #### [facility] [address] [place] [address] [place] Platelet mean volume (Bld) [Entitic vol] 7.3 fL Normal 6.6-10.1 The [facility] Comment on above: Performed By: #### U RTP, UCREA #### [facility] [address] [place] [id number] [place] Platelets (Bld) [#/Vol] 312 10*3/uL Normal 150-450 [facility] Comment on above: Performed By: #### U RTP, UCREA #### [facility] [address] [place] [id number] [place] RBC (Bld) [#/Vol] 4.63 10*6/uL Normal 3.90-5.60 The [facility] Comment on above: Performed By: #### U RTP, UCREA #### [facility] [address] [place] [id number] [place] WBC (Bld) [#/Vol] 10.8 10*3/uL High 4.1-10.5 The [facility] Comment on above: Performed By: #### U RTP, UCREA #### [address] Comprehensive Metabolic Pane hanna 04-02-2025 Albumin [Mass/Vol] 3.7 g/dL Normal 3.5-5.7 The [facility] Comment on above: Performed By: #### C MP #### [address] Albumin/Globulin [Mass ratio] 1.2 {ratio} Normal [facility] Comment on above: Performed By: #### C MP #### [address] ALP [Catalytic activity/Vol] 49 U/L Normal 34-104 [facility] Comment on above: Performed By: #### C MP #### [address] ALT [Catalytic activity/Vol] 24 U/L Normal 7-52 [facility] Comment on above: Performed By: #### C MP #### [address] Anion gap [Moles/Vol] 11.4 mmol/L Normal 6.0-15.0 [facility] Comment on above: Performed By: #### C MP #### [address] AST [Catalytic activity/Vol] 20 U/L Normal 13-39 [facility] Comment on above: Performed By: #### C MP #### [address] Bilirubin [Mass/Vol] 0.4 mg/dL Normal 0.3-1.0 [facility] Comment on above: Performed By: #### C MP #### [address] Calcium [Mass/Vol] 8.9 mg/dL Normal 8.6-10.3 The [facility] Comment on above: Performed By: #### C MP #### [address] Chloride [Moles/Vol] 102 mmol/L Normal 98-107 [facility] Comment on above: Performed By: #### C MP #### [address] CO2 [Moles/Vol] 26.5 mmol/L Normal 21.0-31.0 The [facility] Comment on above: Performed By: #### C MP #### [address] Creatinine [Mass/Vol] 0.88 mg/dL Normal 0.70-1.30 [facility] Comment on above: Performed By: #### C MP #### [address] Creatinine Clr Calc Pharmacy 94.89 Normal [facility] Comment on above: Result Comment: PERF ORMED BY: [place] [address] PATHOLOGIST [employer] LION MURDOCK M.D. Performed By: #### C MP #### [address] GFR/1.73 sq M.predicted MDRD (S/P/Bld) [Vol rate/Area] mL/min/{1.73_m2} Normal [facility] Comment on above: Performed By: #### C MP #### [address] Globulin (S) [Mass/Vol] 3.1 g/dL Normal T he [facility] Comment on above: Performed By: #### C MP #### [address] Glucose [Mass/Vol] 89 mg/dL Normal 70-100 The [facility] Comment on above: Result Comment: [place] Glucose Reference Range is dependent on time and content of last meal. Glucose of more than 200 mg/dL in a nonstressed, ambulatory subject supports the diagnosis of Diabetes Mellitus. ADA recommended reference range Performed By: #### C MP #### [facility] [address] Potassium [Moles/Vol] 3.9 mmol/L Normal 3.5-5.1 [facility] Comment on above: Result Comment: Hemo lysis is present at a level that could interfere with the result. Contact lab if redraw is required Performed By: #### C MP #### [facility] [address] Protein [Mass/Vol] 6.8 g/dL Normal 6.4-8.9 [facility] Comment on above: Performed By: #### C MP #### [facility] [address] Sodium [Moles/Vol] 136 mmol/L Normal 136-145 [facility] Comment on above: Performed By: #### C MP #### [address] Urea nitrogen [Mass/Vol] 14 mg/dL Normal 7-25 [facility] Comment on above: Performed By: #### C MP #### [facility] [address] Comprehensive metabolic pane hanna 04-02-2025 Albumin [Mass/Vol] 3.7 g/dL 3.5 - 5.7 g/dL [facility] Albumin/Globulin [Mass ratio] 1.2 {ratio} [facility] ALP [Catalytic activity/Vol] 49 U/L 34 - 104 U/L [facility] ALT [Catalytic activity/Vol] 24 U/L 7 - 52 U/L [facility] Anion gap [Moles/Vol] 11.4 mmol/L 6.0 - 15.0 meq/L [facility] AST [Catalytic activity/Vol] 20 U/L 13 - 39 U/L [facility] Bilirubin [Mass/Vol] 0.4 mg/dL 0.3 - 1 .0 mg/dL [facility] Calcium [Mass/Vol] 8.9 mg/dL 8.6 - 10. 3 mg/dL [facility] Chloride [Moles/Vol] 102 mmol/L 98 - 10 7 mmol/L [facility] CO2 [Moles/Vol] 26.5 mmol/L 21.0 - 31.0 mmol/L [facility] Creatinine (U) [Mass/Vol] 0.88 mg/dL 0.70 - 1.30 mg/dL [facility] CREATININE CLR CALC PHARMACY 94.89 [facility] ESTIMATED GFR mL/Min [facility] Globulin (S) [Mass/Vol] 3.1 g/dL N [facility] Glucose [Mass/Vol] 89 mg/dL 70 - 100 mg/dL [facility] Comment on above: Random Glucose Refer ence Range is dependent on time and content of last meal. Glucose of more than 200 mg/dL in a nonstressed, ambulatory subject supports the diagnosis of Diabetes Mellitus. ADA recommended reference range Potassium [Moles/Vol] 3.9 mmol/L 3.5 - 5.1 mmol/L [facility] Comment on above: Hemolysis is present at a level that could interfere with the result. Contact lab if redraw is required Protein [Mass/Vol] 6.8 g/dL 6.4 - 8.9 g/dL [facility] Sodium [Moles/Vol] 136 mmol/L 136 - 145 mmol/L [facility] Urea nitrogen [Mass/Vol] 14 mg/dL 7 - 25 mg/d L [facility] Surgical pathology studyon 0 03-22-2025 Surgical pathology study Pathology report.total SEE COMMENT Surgical Pathology Case: [id number] Authorizing Provider: Shoshana Pablo MD Collected: 03/22/2025 1126 Ordering Location: [facility] OR Received: 03/22/2025 1431 Pathologist: Narciso Bedoya DDS Specimens: A) - VOCAL CORD BIOPSY LEFT, LEFT VOCAL CORD LESION B) - VOCAL CORD BIOPSY LEFT, MID LEFT VOCAL CORD - INFERIOR Path report.final diagnosis SEE COMMENT A. Vocal cord, left lesion, excision: - Squamous mucosa with atypia (favor reactive) and underlying fibrosis, negative for high-grade dysplasia. B. Vocal cord, left mid inferior, excision: - Squamous mucosa with atypia (favor reactive) and underlying fibrosis, negative for high-grade dysplasia. at 1601 EDT Laboratory comment By the signature on this report, the individual or group listed as making the Final Interpretation/Diagn osis certifies that they have reviewed this case. 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] Comprehensive Metabolic Pane hanna 03-05-2025 Albumin [Mass/Vol] 3.5 g/dL Normal 3.5-5.7 [facility] Comment on above: Performed By: #### C MP #### [address] Albumin/Globulin [Mass ratio] 1.0 {ratio} Normal [facility] Comment on above: Performed By: #### C MP #### [address] ALP [Catalytic activity/Vol] 100 U/L Normal 34-104 [facility] Comment on above: Performed By: #### C MP #### [place] [id number] [facility] ALT [Catalytic activity/Vol] 44 U/L Normal 7-52 [facility] Comment on above: Performed By: #### C MP #### [address] Anion gap [Moles/Vol] 11.6 mmol/L Normal 6.0-15.0 Th e [facility] Comment on above: Performed By: #### C MP #### [place] [address] [place] AST [Catalytic activity/Vol] 35 U/L Normal 13-39 [facility] Comment on above: Performed By: #### C MP #### [address] Bilirubin [Mass/Vol] 0.4 mg/dL Normal 0.3-1.0 [facility] Comment on above: Performed By: #### C MP #### [address] Calcium [Mass/Vol] 9.3 mg/dL Normal 8.6-10.3 [facility] Comment on above: Performed By: #### C MP #### [address] Chloride [Moles/Vol] 102 mmol/L Normal 98-107 [facility] Comment on above: Performed By: #### C MP #### [address] CO2 [Moles/Vol] 28.4 mmol/L Normal 21.0-31.0 The [facility] Comment on above: Performed By: #### C MP #### [address] Creatinine [Mass/Vol] 0.88 mg/dL Normal 0.70-1.30 [facility] Comment on above: Performed By: #### C MP #### [address] Creatinine Clr Calc Pharmacy 95.10 Normal [facility] Comment on above: Result Comment: PERF ORMED BY: [place] [address] PATHOLOGIST [employer] LION MURDOCK M.D. Performed By: #### C MP #### [place] [address] [place] GFR/1.73 sq M.predicted MDRD (S/P/Bld) [Vol rate/Area] mL/min/{1.73_m2} Normal [facility] Comment on above: Performed By: #### C MP #### [address] [address] [place] Globulin (S) [Mass/Vol] 3.6 g/dL Normal T he [facility] Comment on above: Performed By: #### C MP #### [address] Glucose [Mass/Vol] 113 mg/dL High 70-100 [facility] Comment on above: Result Comment: [facility] Glucose Reference Range is dependent on time and content of last meal. Glucose of more than 200 mg/dL in a nonstressed, ambulatory subject supports the diagnosis of Diabetes Mellitus. ADA recommended reference range Performed By: #### C MP #### [address] Potassium [Moles/Vol] 4.0 mmol/L Normal 3.5-5.1 [facility] Comment on above: Performed By: #### C MP #### [address] Protein [Mass/Vol] 7.1 g/dL Normal 6.4-8.9 [facility] Comment on above: Performed By: #### C MP #### [address] Sodium [Moles/Vol] 138 mmol/L Normal 136-145 [facility] Comment on above: Performed By: #### C MP #### [address] Urea nitrogen [Mass/Vol] 12 mg/dL Normal 7-25 [facility] Comment on above: Performed By: #### C MP #### [address] Comprehensive metabolic pane hanna 03-05-2025 Albumin [Mass/Vol] 3.5 g/dL 3.5 - 5.7 g/dL [facility] Albumin/Globulin [Mass ratio] 1 {ratio} [facility] ALP [Catalytic activity/Vol] 100 U/L 34 - 104 U/L [facility] ALT [Catalytic activity/Vol] 44 U/L 7 - 52 U/L [facility] Anion gap [Moles/Vol] 11.6 mmol/L 6.0 - 15.0 meq/L [facility] AST [Catalytic activity/Vol] 35 U/L 13 - 39 U/L [facility] Bilirubin [Mass/Vol] 0.4 mg/dL 0.3 - 1 .0 mg/dL [facility] Calcium [Mass/Vol] 9.3 mg/dL 8.6 - 10. 3 mg/dL [facility] Chloride [Moles/Vol] 102 mmol/L 98 - 10 7 mmol/L [facility] CO2 [Moles/Vol] 28.4 mmol/L 21.0 - 31.0 mmol/L [facility] Creatinine (U) [Mass/Vol] 0.88 mg/dL 0.70 - 1.30 mg/dL [facility] CREATININE CLR CALC PHARMACY 95.1 [facility] ESTIMATED GFR mL/Min [facility] Globulin (S) [Mass/Vol] 3.6 g/dL N [facility] Glucose [Mass/Vol] 113 mg/dL High 70 - 100 mg/dL [facility] Comment on above: Random Glucose Refer ence Range is dependent on time and content of last meal. Glucose of more than 200 mg/dL in a nonstressed, ambulatory subject supports the diagnosis of Diabetes Mellitus. ADA recommended reference range Interpretation and review of laboratory results Abnormal [facility] Potassium [Moles/Vol] 4 mmol/L 3.5 - 5.1 mmol/L [facility] Protein [Mass/Vol] 7.1 g/dL 6.4 - 8.9 g/dL [facility] Sodium [Moles/Vol] 138 mmol/L 136 - 145 mmol/L [facility] Urea nitrogen [Mass/Vol] 12 mg/dL 7 - 25 mg/d L [facility] hospital Scan and CBCon 03-05-2025 Anisocytosis Ql (Bld) Slight Normal [facility] Comment on above: Performed By: #### C MP #### [facility] [address] [place] [address] [place] Basophils (Bld) [#/Vol] 0.1 10*3/uL Normal 0.0-0.2 [facility] Comment on above: Performed By: #### C MP #### [facility] [address] [place] [address] [place] Basophils/100 WBC (Bld) 0.8 % Normal . T [facility] Comment on above: Performed By: #### C MP #### [address] Eosinophils (Bld) [#/Vol] 0.0 10*3/uL Normal 0.0-0.45 [facility] Comment on above: Performed By: #### C MP #### [address] Eosinophils/100 WBC (Bld) 0.3 % Normal . [facility] Comment on above: Performed By: #### C MP #### [address] Erythrocyte distribution width (RBC) [Ratio] 19.8 % High 12.0-14.8 [facility] Comment on above: Performed By: #### C MP #### [address] Hematocrit (Bld) [Volume fraction] 34.0 % Low 38.8-50.0 [facility] Comment on above: Performed By: #### C MP #### [address] Hemoglobin (Bld) [Mass/Vol] 11.5 g/dL Low 13.0-17.0 [facility] Comment on above: Performed By: #### C MP #### [address] Lymphocytes (Bld) [#/Vol] 2.2 10*3/uL Normal 1.00-4.8 [facility] Comment on above: Performed By: #### C MP #### [address] Lymphocytes/100 WBC (Bld) 14.8 % Normal . [facility] Comment on above: Performed By: #### C MP #### [address] MCH (RBC) [Entitic mass] 28.4 pg Normal 27.5-35.2 [facility] Comment on above: Performed By: #### C MP #### [address] MCV (RBC) [Entitic vol] 83.7 fL Normal 83.5-101 T [facility] Comment on above: Performed By: #### C MP #### [address] Mean Corpuscular HGB Conc 33.9 g/dL Normal 32.5-35.6 [facility] Comment on above: Performed By: #### C MP #### [address] Microcytosis Slight Normal [facility] Comment on above: Performed By: #### C MP #### [address] Monocytes (Bld) [#/Vol] 2.2 10*3/uL High 0.0-0.8 [facility] Comment on above: Performed By: #### C MP #### [address] Monocytes/100 WBC (Bld) 14.8 % Normal . [facility] Comment on above: Performed By: #### C MP #### [address] Neutrophils (Bld) [#/Vol] 10.1 10*3/uL High 1.8-7.7 [facility] Comment on above: Performed By: #### C MP #### [address] Neutrophils/100 WBC (Bld) 69.3 % Normal . [facility] Comment on above: Performed By: #### C MP #### [address] NRBC% 0.0 /100{WBC} Normal 0-0.5 The [facility] Comment on above: Performed By: #### C MP #### [address] Platelet Estimate Normal Normal Normal [facility] Comment on above: Performed By: #### C MP #### [address] Platelet mean volume (Bld) [Entitic vol] 7.1 fL Normal 6.6-10.1 [facility] Comment on above: Performed By: #### C MP #### [address] Platelet Morphology Normal Normal Normal [facility] Comment on above: Result Comment: PERF ORMED BY: [place] [address] PATHOLOGIST [employer] LION MURDOCK M.D. Performed By: #### C MP #### [address] Platelets (Bld) [#/Vol] 429 10*3/uL Normal 150-450 [facility] Comment on above: Performed By: #### C MP #### [address] Poikilocytosis Slight Normal [facility] Comment on above: Performed By: #### C MP #### [address] Polychromasia Moderate Normal [facility] Comment on above: Performed By: #### C MP #### [address] RBC (Bld) [#/Vol] 4.06 10*6/uL Normal 3.90-5.60 [facility] Comment on above: Performed By: #### C MP #### [place] [address] [place] WBC (Bld) [#/Vol] 14.6 10*3/uL High 4.1-10.5 [facility] Comment on above: Performed By: #### C MP #### [address] ECG 12 lead ECGon 02-21-2025 ECG 12 lead ECG [facility] [place] [address] [place] [address] Electrocardiograph Report Signed Patient: Bert Yeung MR#: [id number] 47 : 1950 Acct:[id number] Age/Sex: 74 / M ADM Date: 02/21/25 Loc: Room: Type: [facility] CLI Attending Dr: Shoshana Pablo MD Ordering Provider: NON STAFF Date of Service: 02/21/25/ ECG/ECG 12 lead ECG: PST Copies to: Test Reason : Blood Pressure : */* mmHG Vent. Rate : 83 BPM Atrial Rate : 83 BPM P-R Int : 150 ms QRS Dur : 84 ms QT Int : 366 ms P-R-T Axes : 49 4 37 degrees QTcB Int : 430 ms Normal sinus rhythm Nonspecific ST and T wave abnormality Abnormal ECG Confirmed by Carmen Alcantara ([id number]) on 02/21/2025 8:58:46 PM Referred By: Electronically Signed By: Carmen Alcantara Transcribed By: MUS Signed By Carmen Alcantara MD 2057 Normal [facility] X-ray reportOrdered By: Geoff Cleary on 02-21-2025 Study report [facility] [place] [address] [place] [address] XRay Report Signed Patient: Bert Yeung MR#: [id number] : 1950 Acct:[id number] Age/Sex: 74 / M ADM Date: Loc: Room: Type: [facility] CLI Attending Dr: YANELY STAFF Copies to: NON STAFF~ Ordering Provider: NON STAFF Date of Service: 02/21/25 XR/XR chest 2V*: Z01.818 Plain film chest 2 view HISTORY: Preop for laryngeal surgery COMPARISON: 10/25/2024 FINDINGS: SUPPORT DEVICES: None POSTSURGICAL CHANGES: Left Fnbhxb-j-Tknf present. There is compression of the catheter at the level of the clavicle. No fracture or kinking. Cervical spine fixation HEART: Within normal limits PULMONARY PAU: Within normal limits MEDIASTINUM: Unremarkable LUNGS AND PLEURA: Left diffuse pleural-parenchymal changes redemonstrated. Mild left scarring. BONY STRUCTURES: Intact ADDITIONAL FINDINGS None XR/XR chest 2V* IMPRESSION: Similar right pleural-parenchymal changes. Similar left scarring. Tmhjlh-x-Otvh findings as above. Impression dictated by: Joesph Cleary M.D.02/21/2025 4:16 PM Dictation Location: RADIO-PC-23 Transcribed By: GENARO 02/21/251615 Dictated By: Joesph Cleary DO 02/21/25 160 Signed By: 02/21/25 161 [facility] XR chest 2V*on 02-21-2025 XR chest 2V* [facility] [place] [address] [place] [address] XRay Report Signed Patient: Bert Yeung MR#: [id number] 47 : 1950 Acct:[id number] Age/Sex: 74 / M ADM Date: 02/21/25 Loc: Room: Type: [facility] Attending Dr: YANELY STAFF Copies to: NON STAFF Ordering Provider: NON STAFF Date of Service: 02/21/25 XR/XR chest 2V*: Z01.818 Plain film chest 2 view HISTORY: Preop for laryngeal surgery COMPARISON: 10/25/2024 FINDINGS: SUPPORT DEVICES: None POSTSURGICAL CHANGES: Left Rdwlus-d-Ckad present. There is compression of the catheter at the level of the clavicle. No fracture or kinking. Cervical spine fixation HEART: Within normal limits PULMONARY PAU: Within normal limits MEDIASTINUM: Unremarkable LUNGS AND PLEURA: Left diffuse pleural-parenchymal changes redemonstrated. Mild left scarring. BONY STRUCTURES: Intact ADDITIONAL FINDINGS None XR/XR chest 2V* IMPRESSION: Similar right pleural-parenchymal changes. Similar left scarring. Cxkcbt-d-Ktnq findings as above. Impression dictated by: Joesph Cleary M.D.02/21/2025 4:16 PM Dictation Location: RADIO-PC-23 Transcribed By: GENARO 02/21/25 161 Dictated By: Joesph Cleary DO 02/21/25 160 Signed By: 02/21/25 161 Normal [facility] Creatinine (U) [Mass/Vol]on 02-13-2025 Creatinine spec 2 (U) [Mass/Vol] 196 mg/dL [facility] Comment on above: No reference range e stablished Creatinine [Mass/volume] in UrineOrdered By: Natacha Hess on 02-13-2025 Creatinine (U) [Mass/Vol] Creatinine [Mass/volume] in Urine [facility] Comment on above: No reference range e stablished Creatinine, Urine (Random)on 02-13-2025 Creatinine, Urine (Random) 196.00 mg/dL Normal [facility] Comment on above: Result Comment: No r eference range established Performed By: #### U ADAM URTP #### [facility] [address] [place] [address] No Panel Informationon 02-13 [facility] Protein [Mass/volume] in Uri neOrdered By: Natacha Hess on 02-13-2025 Protein (U) [Mass/Vol] Protein [Mass/volume] in Urine High 0-9 [facility] TOTAL PROTEIN, URINEon 02-13 Interpretation and review of laboratory results Abnormal [facility] Protein (U) [Mass/Vol] 23 mg/dL High 0 - 9 mg/dL [facility] Total Protein, Urineon 02-13 Protein (U) [Mass/Vol] 23 mg/dL High 0-9 [facility] Comment on above: Result Comment: PERF ORMED BY: [place] [address] PATHOLOGIST [employer] LION MURDOCK M.D. Performed By: #### U ADAM URTP #### [facility] [address] [place] [address] Alanine aminotransferase [En zymatic activity/volume] in Serum or PlasmaOrdered By: Natacha Hess on 02-12-2025 ALT [Catalytic activity/Vol] Alanine aminotransferase [Enzymatic activity/volume] in Serum or Plasma [facility] Albumin [Mass/volume] in Ser um or Plasma by Bromocresol green (BCG) dye binding methoOrdered By: Natacha Hess on 02-12-2025 Albumin BCG dye [Mass/Vol] Albumin [Mass/volume] in Serum or Plasma by Bromocresol green (BCG) dye binding metho 3.5-5.7 [facility] Alkaline phosphatase [Enzyma tic activity/volume] in Serum or PlasmaOrdered By: Natacha Hess on 02-12-2025 ALP [Catalytic activity/Vol] Alkaline phosphatase [Enzymatic activity/volume] in Serum or Plasma 34-104 [facility] Anisocytosis LM Ql (Bld)Orde red By: Natacha Hess on 02-12-2025 Anisocytosis Ql (Bld) Anisocytosis [Presence] in Blood by Light microscopy [facility] Aspartate aminotransferase [ Enzymatic activity/volume] in Serum or PlasmaOrdered By: Natacha Hess on 02-12-2025 AST [Catalytic activity/Vol] Aspartate aminotransferase [Enzymatic activity/volume] in Serum or Plasma 13-39 [facility] Basophils Auto (Bld) [#/Vol] Ordered By: Natacha Hess on 02-12-2025 Basophils (Bld) [#/Vol] Automated basoph il count [facility] Basophils/100 WBC Auto (Bld) Ordered By: Natacha Hess on 02-12-2025 Basophils/100 WBC (Bld) Automated basophil % [facility] Basophils/100 WBC Manual cnt (Bld)Ordered By: Natacha Hess on 02-12-2025 Basophils/100 WBC (Bld) Basophils/100 leukocytes in Blood by Manual count 0-2 [facility] Bilirubin.total [Mass/volume ] in Serum or PlasmaOrdered By: Natacha Hess on 02-12-2025 Bilirubin [Mass/Vol] Bilirubin.total [Mass/volume] in Serum or Plasma 0.3-1.0 [facility] CT chest w conon 02-12-2025 CT chest w con [facility] [place] [address] CT Scan Report Signed Patient: Bert Yeung MR#: [id number] [birth year] : 1950 Acct:[id number] Age/Sex: 74 / M ADM Date: 02/12/25 Loc: XT Room: Type: [facility] Attending Dr: [...] or use of iterative reconstruction technique. FINDINGS: Mediastinum:Left-jessica ed port is in place. Thoracic aorta appears [...] demonstrate degenerative change. CT/CT chest w con IMPRESSION: No significant change in chest findings compared to the 12/10/[address] evidence of progression disease. Impression dictated by: Crescencio Blanca Jr., D.O.02/12/2025 2:00 PM Dictation Location: [place] [address] Transcribed By: [facility] 02/12/25 1400 Dictated By: Crescencio Blanca Jr, DO 02/12/25 1356 Signed By: 02/12/25 1400 Normal [facility] Calcium [Mass/volume] in Ser um or PlasmaOrdered By: Natacha Hess on 02-12-2025 Calcium [Mass/Vol] Calcium [Mass/volume] in Serum or Plasma 8.6-10.3 [facility] Carbon dioxide, total [Moles /volume] in Serum or PlasmaOrdered By: Natacha Hess on 02-12-2025 CO2 [Moles/Vol] Carbon dioxide, total [Moles/volume] in Serum or Plasma 21.0-31.0 [facility] Chloride [Moles/volume] in S harjit or PlasmaOrdered By: Natacha Hess on 02-12-2025 Chloride [Moles/Vol] Chloride [Moles/volume] in Serum or Plasma 98-107 [facility] Comprehensive Metabolic Pane hanna 02-12-2025 Albumin [Mass/Vol] 3.9 g/dL Normal 3.5-5.7 [facility] Comment on above: Performed By: #### U CREEmily, URTP #### [address] Albumin/Globulin [Mass ratio] 1.2 {ratio} Normal [facility] Comment on above: Performed By: #### U CREEmily, URTP #### [address] ALP [Catalytic activity/Vol] 51 U/L Normal 34-104 [facility] Comment on above: Performed By: #### U CREEmily, URTP #### [address] ALT [Catalytic activity/Vol] 37 U/L Normal 7-52 [facility] Comment on above: Performed By: #### U CREEmily, URTP #### [address] Anion gap [Moles/Vol] 9.7 mmol/L Normal 6.0-15.0 [facility] Comment on above: Performed By: #### U CREEmily, URTP #### [address] AST [Catalytic activity/Vol] 26 U/L Normal 13-39 [facility] Comment on above: Performed By: #### U CREEmily, URTP #### [place] [address] [place] Bilirubin [Mass/Vol] 0.4 mg/dL Normal 0.3-1.0 [facility] Comment on above: Performed By: #### U CREEmily, URTP #### [address] Calcium [Mass/Vol] 9.4 mg/dL Normal 8.6-10.3 [facility] Comment on above: Performed By: #### U CREA, URTP #### [place] [address] [place] Chloride [Moles/Vol] 102 mmol/L Normal 98-107 [facility] Comment on above: Performed By: #### U CREEmily, URTP #### [address] CO2 [Moles/Vol] 29.3 mmol/L Normal 21.0-31.0 [facility] Comment on above: Performed By: #### U CREA, URTP #### [address] Creatinine [Mass/Vol] 1.03 mg/dL Normal 0.70-1.30 [facility] Comment on above: Performed By: #### U CREEmily, URTP #### [address] Creatinine Clr Calc Pharmacy 81.59 Normal [facility] Comment on above: Result Comment: PERF ORMED BY: [place] [address] PATHOLOGIST [employer] LION MURDOCK M.D. Performed By: #### U CREEmily, URTP #### [address] GFR/1.73 sq M.predicted MDRD (S/P/Bld) [Vol rate/Area] mL/min/{1.73_m2} Normal [facility] Comment on above: Performed By: #### U CREEmily, URTP #### [address] Globulin (S) [Mass/Vol] 3.2 g/dL Normal [facility] Comment on above: Performed By: #### U CREA, URTP #### [address] Glucose [Mass/Vol] 100 mg/dL Normal 70-100 [facility] Comment on above: Result Comment: [place] Glucose Reference Range is dependent on time and content of last meal. Glucose of more than 200 mg/dL in a nonstressed, ambulatory subject supports the diagnosis of Diabetes Mellitus. ADA recommended reference range Performed By: #### U CREA, URTP #### [facility] [address] Potassium [Moles/Vol] 4.0 mmol/L Normal 3.5-5.1 [facility] Comment on above: Performed By: #### U CREA, URTP #### [facility] [address] [place] [id number] [facility] Protein [Mass/Vol] 7.1 g/dL Normal 6.4-8.9 [facility] Comment on above: Performed By: #### U CREA, URTP #### [facility] [address] Sodium [Moles/Vol] 137 mmol/L Normal 136-145 [facility] Comment on above: Performed By: #### U CREA, URTP #### [facility] [address] [place] [id number] [facility] Urea nitrogen [Mass/Vol] 14 mg/dL Normal 7-25 [facility] Comment on above: Performed By: #### U CREA, URTP #### [facility] [address] [place] [id number] [facility] Comprehensive metabolic pane [facility] 02-12-2025 Albumin [Mass/Vol] 3.9 g/dL 3.5 - 5.7 g/dL [facility] Albumin/Globulin [Mass ratio] 1.2 {ratio} [facility] ALP [Catalytic activity/Vol] 51 U/L 34 - 104 U/L [facility] ALT [Catalytic activity/Vol] 37 U/L 7 - 52 U/L [facility] Anion gap [Moles/Vol] 9.7 mmol/L 6.0 - 15.0 meq/L [facility] AST [Catalytic activity/Vol] 26 U/L 13 - 39 U/L [facility] Bilirubin [Mass/Vol] 0.4 mg/dL 0.3 - 1 .0 mg/dL [facility] Calcium [Mass/Vol] 9.4 mg/dL 8.6 - 10. 3 mg/dL [facility] Chloride [Moles/Vol] 102 mmol/L 98 - 10 7 mmol/L [facility] CO2 [Moles/Vol] 29.3 mmol/L 21.0 - 31.0 mmol/L [facility] Creatinine (U) [Mass/Vol] 1.03 mg/dL 0.70 - 1.30 mg/dL [facility] CREATININE CLR CALC PHARMACY 81.59 [facility] ESTIMATED GFR mL/Min [facility] Globulin (S) [Mass/Vol] 3.2 g/dL N [facility] Glucose [Mass/Vol] 100 mg/dL 70 - 100 mg/dL [facility] Comment on above: Random Glucose Refer ence Range is dependent on time and content of last meal. Glucose of more than 200 mg/dL in a nonstressed, ambulatory subject supports the diagnosis of Diabetes Mellitus. ADA recommended reference range Potassium [Moles/Vol] 4 mmol/L 3.5 - 5.1 mmol/L [facility] Protein [Mass/Vol] 7.1 g/dL 6.4 - 8.9 g/dL [facility] Sodium [Moles/Vol] 137 mmol/L 136 - 145 mmol/L [facility] Urea nitrogen [Mass/Vol] 14 mg/dL 7 - 25 mg/d L [facility] Creatinine [Mass/volume] in Serum or PlasmaOrdered By: Natacha Hess on 02-12-2025 Creatinine [Mass/Vol] Creatinine [Mass/volume] in Serum or Plasma 0.70-1.30 [facility] Diff and CBCon 02-12-2025 Anisocytosis Ql (Bld) Slight Normal [facility] Comment on above: Performed By: #### U CREA, URTP #### [facility] [address] [place] [id number] [place] Basophils/100 WBC (Bld) 1 % Normal 0-2 [facility] Comment on above: Performed By: #### U CREA, URTP #### [facility] [address] [place] [address] [place] Eosinophils/100 WBC (Bld) 2 % Normal 1-3 [facility] Comment on above: Performed By: #### U CREA, URTP #### [facility] [address] [place] [id number] [facility] Erythrocyte distribution width (RBC) [Ratio] 19.7 % High 12.0-14.8 [facility] Comment on above: Performed By: #### U CREA, URTP #### [facility] [address] Hematocrit (Bld) [Volume fraction] 37.8 % Low 38.8-50.0 [facility] Comment on above: Performed By: #### U CREA, URTP #### [address] Hemoglobin (Bld) [Mass/Vol] 12.9 g/dL Low 13.0-17.0 [facility] Comment on above: Performed By: #### U CREA, URTP #### [address] Lymphocytes/100 WBC (Bld) 14 % Low 18-42 [facility] Comment on above: Performed By: #### U CREA, URTP #### [address] MCH (RBC) [Entitic mass] 28.7 pg Normal 27.5-35.2 [facility] Comment on above: Performed By: #### U CREA, URTP #### [address] MCV (RBC) [Entitic vol] 84.3 fL Normal 83.5-101 [facility] Comment on above: Performed By: #### U CREA, URTP #### [address] Mean Corpuscular HGB Conc 34.1 g/dL Normal 32.5-35.6 [facility] Comment on above: Performed By: #### U CREA, URTP #### [address] Microcytosis Slight Normal [facility] Comment on above: Performed By: #### U CREA, URTP #### [address] Monocytes/100 WBC (Bld) 18 % High 2-11 [facility] Comment on above: Performed By: #### U CREA, URTP #### [address] Ovalocytes Slight Normal [facility] Comment on above: Performed By: #### U CREA, URTP #### [address] Platelet Estimate Increased Normal Normal [facility] Comment on above: Performed By: #### U CREA, URTP #### [address] Platelet mean volume (Bld) [Entitic vol] 6.7 fL Normal 6.6-10.1 [facility] Comment on above: Result Comment: PERF ORMED BY: [place] [address] PATHOLOGIST [employer] LION MURDOCK M.D. Performed By: #### U CREA, URTP #### [address] Platelet Morphology Normal Normal Normal [facility] Comment on above: Result Comment: PERF ORMED BY: [place] [address] PATHOLOGIST [employer] LION MURDOCK M.D. Performed By: #### U CREA, URTP #### [address] Platelets (Bld) [#/Vol] 538 10*3/uL High 150-450 [facility] Comment on above: Performed By: #### U CREA, URTP #### [place] [address] [place] Poikilocytosis Slight Normal [facility] Comment on above: Performed By: #### U CREA, URTP #### [address] Polychromasia Slight Normal [facility] Comment on above: Performed By: #### U CREA, URTP #### [place] [address] [place] RBC (Bld) [#/Vol] 4.48 10*6/uL Normal 3.90-5.60 [facility] Comment on above: Performed By: #### U CREEmily, URTP #### [facility] [address] Segmented neutrophils/100 WBC (Bld) 65 % Normal 50-70 [facility] Comment on above: Performed By: #### U CREEmily, URTP #### [facility] [address] WBC (Bld) [#/Vol] 10.8 10*3/uL High 4.1-10.5 [facility] Comment on above: Performed By: #### U CREEmily, URTP #### [facility] [address] Eosinophils Auto (Bld) [#/Vo l]Ordered By: Natacha Hess on 02-12-2025 Eosinophils (Bld) [#/Vol] Automated eosinophil count [facility] Eosinophils/100 WBC Auto (Bl d)Ordered By: Natacha Hess on 02-12-2025 Eosinophils/100 WBC (Bld) Automated eosinophil % [facility] Eosinophils/100 WBC Manual c nt (Bld)Ordered By: Natacha Hess on 02-12-2025 Eosinophils/100 WBC (Bld) Eosinophils/100 leukocytes in Blood by Manual count 1-3 [facility] Erythrocyte distribution wid th Auto (RBC) [Ratio]Ordered By: Natacha Hess on 02-12-2025 Erythrocyte distribution width (RBC) [Ratio] Erythrocyte distribution width [Ratio] by Automated count High 12.0-14.8 [facility] Erythrocyte morphology findi ng [Identifier] in BloodOrdered By: Natacha Hess on 02-12-2025 RBC morphology finding Nom (Bld) RBC morphology [facility] Globulin Calc (S) [Mass/Vol] Ordered By: Natacha Hess on 02-12-2025 Globulin (S) [Mass/Vol] Serum globulin measurement by calculation (mass/volume) [facility] Glucose [Mass/volume] in Ser um or PlasmaOrdered By: Natacha Hess on 02-12-2025 Glucose [Mass/Vol] Glucose [Mass/volume] in Serum or Plasma 70-100 [facility] Comment on above: ADA recommended refe rence rangeRandom Glucose Reference Range is dependent on time and content of last meal. Glucose of more than 200 mg/dL in a nonstressed, ambulatory subject supports the diagnosis of Diabetes Mellitus. Hematocrit Auto (Bld) [Volum e fraction]Ordered By: Natacha Hess on 02-12-2025 Hematocrit (Bld) [Volume fraction] Hematocrit [Volume Fraction] of Blood by Automated count Low 38.8-50.0 [facility] Hemoglobin [Mass/volume] in BloodOrdered By: Natacha Hess on 02-12-2025 Hemoglobin (Bld) [Mass/Vol] Hemoglobin [Mass/volume] in Blood Low 13.0-17.0 [facility] Leukocytes [#/volume] correc neetu for nucleated erythrocytes in Blood by Automated counOrdered By: Natacha Hess on 02-12-2025 WBC corrected for nucl RBC Auto (Bld) [#/Vol] Leukocytes [#/volume] corrected for nucleated erythrocytes in Blood by Automated coun High 4.1-10.5 [facility] Lymphocytes Auto (Bld) [#/Vo l]Ordered By: Natacha Hess on 02-12-2025 Lymphocytes (Bld) [#/Vol] Lymphocytes [#/volume] in Blood by Automated count [facility] Lymphocytes/100 WBC Auto (Bl d)Ordered By: Natacha Hess on 02-12-2025 Lymphocytes/100 WBC (Bld) Lymphocytes/100 leukocytes in Blood by Automated count [facility] Lymphocytes/100 WBC Manual c nt (Bld)Ordered By: Natacha Hess on 02-12-2025 Lymphocytes/100 WBC (Bld) Lymphocytes/100 leukocytes in Blood by Manual count Low 18-42 [facility] MCH Auto (RBC) [Entitic mass ]Ordered By: Natacha Hess on 02-12-2025 MCH (RBC) [Entitic mass] MCH [Entitic ma ss] by Automated count 27.5-35.2 [facility] MCHC Auto (RBC) [Mass/Vol]Or dered By: Natacha Hess on 02-12-2025 MCHC (RBC) [Mass/Vol] MCHC [Mass/volume] by Automated count 32.5-35.6 [facility] MCV Auto (RBC) [Entitic vol] Ordered By: Natacha Hess on 02-12-2025 MCV (RBC) [Entitic vol] MCV [Entitic vol ume] by Automated count 83.5-101 [facility] Microcytes LM Ql (Bld)Ordere d By: Natacha Hess on 02-12-2025 Microcytes Ql (Bld) Microcytes [Presence] in Blood by Light microscopy [facility] Monocytes Auto (Bld) [#/Vol] Ordered By: Natacha Hess on 02-12-2025 Monocytes (Bld) [#/Vol] Automated blood monocyte count [facility] Monocytes/100 WBC Auto (Bld) Ordered By: Natacha Hess on 02-12-2025 Monocytes/100 WBC (Bld) Automated monocyte % [facility] Monocytes/100 WBC Manual cnt (Bld)Ordered By: Natacha Hess on 02-12-2025 Monocytes/100 WBC (Bld) Monocytes/100 leukocytes in Blood by Manual count High 2-11 [facility] Neutrophils Auto (Bld) [#/Vo l]Ordered By: Natacha Hess on 02-12-2025 Neutrophils (Bld) [#/Vol] Neutrophils [#/volume] in Blood by Automated count [facility] Neutrophils/100 WBC Auto (Bl d)Ordered By: Natacha Hess on 02-12-2025 Neutrophils/100 WBC (Bld) Automated neutrophil % [facility] No Panel InformationOrdered By: Natacha Hess on 02-12-2025 Estimated GFR (CKD-EPI) > 60.0 mL/Min [facility] Pharmacy Creatinine Clearance (Chem 81.59 [facility] Nucleated erythrocytes [Pres ence] in Blood by Automated countOrdered By: Natacha Hess on 02-12-2025 Nucleated RBC Auto Ql (Bld) Nucleated erythrocytes [Presence] in Blood by Automated count [facility] Ovalocytes [Presence] in Blo od by Light microscopyOrdered By: Natacha Hess on 02-12-2025 Ovalocytes LM Ql (Bld) Ovalocyte detection [facility] Platelet adequacy [Presence] in Blood by Light microscopyOrdered By: Natacha Hess on 02-12-2025 Platelets LM Ql (Bld) Platelet adequacy [Presence] in Blood by Light microscopy Normal [facility] Platelet mean volume Auto (B ld) [Entitic vol]Ordered By: Natacha Hess on 02-12-2025 Platelet mean volume (Bld) [Entitic vol] Platelet mean volume [Entitic volume] in Blood by Automated count 6.6-10.1 [facility] Platelet morphology finding [Identifier] in BloodOrdered By: Natacha Hess on 02-12-2025 Platelet morphology finding Nom (Bld) Platelet morphology finding [Identifier] in Blood Normal [facility] Platelets Auto (Bld) [#/Vol] Ordered By: Natacha Hess on 02-12-2025 Platelets (Bld) [#/Vol] Platelets [#/vol ume] in Blood by Automated count High 150-450 [facility] Poikilocytosis [Presence] in Blood by Light microscopyOrdered By: Natacha Hess on 02-12-2025 Poikilocytosis LM Ql (Bld) Poikilocytosis [Presence] in Blood by Light microscopy [facility] Polychromasia [Presence] in Blood by Light microscopyOrdered By: Natacha Hess on 02-12-2025 Polychromasia LM Ql (Bld) Polychromasia [Presence] in Blood by Light microscopy [facility] Potassium [Moles/volume] in Serum or PlasmaOrdered By: Natacha Hess on 02-12-2025 Potassium [Moles/Vol] Potassium [Moles/volume] in Serum or Plasma 3.5-5.1 [facility] Protein [Mass/volume] in Ser um or PlasmaOrdered By: Natacha Hess on 02-12-2025 Protein [Mass/Vol] Protein [Mass/volume] in Serum or Plasma 6.4-8.9 [facility] RBC Auto (Bld) [#/Vol]Ordere d By: Natacha Hess on 02-12-2025 RBC (Bld) [#/Vol] Erythrocytes [#/volume] in Blood by Automated count 3.90-5.60 [facility] Segmented neutrophils/100 WB C Manual cnt (Bld)Ordered By: Natacha Hess on 02-12-2025 Segmented neutrophils/100 WBC (Bld) Manual blood segmented neutrophils/100 leukocytes 50-70 [facility] Serum or plasma albumin/glob ulin mass ratioOrdered By: Natacha Hess on 02-12-2025 Albumin/Globulin [Mass ratio] Serum or plasma albumin/globulin mass ratio [facility] Serum or plasma anion gap de terminationOrdered By: Natacha Hess on 02-12-2025 Anion gap [Moles/Vol] Serum or plasma anion gap determination 6.0-15.0 [facility] Sodium [Moles/volume] in Ser um or PlasmaOrdered By: Natacha Hess on 02-12-2025 Sodium [Moles/Vol] Sodium [Moles/volume] in Serum or Plasma 136-145 [facility] Urea nitrogen [Mass/volume] in Serum or PlasmaOrdered By: Natacha Hess on 02-12-2025 Urea nitrogen [Mass/Vol] Urea nitrogen [Mass/volume] in Serum or Plasma 7-25 [facility] WBC Auto (Bld) [#/Vol]Ordere d By: Natacah Hess on 02-12-2025 WBC (Bld) [#/Vol] Leukocytes [#/volume] in Blood by Automated count High 4.1-10.5 [facility] Creatinine (U) [Mass/Vol]on 01-23-2025 Creatinine spec 2 (U) [Mass/Vol] 78 mg/dL [facility] Comment on above: No reference range e stablished Creatinine [Mass/volume] in UrineOrdered By: Natacha Hess on 01-23-2025 Creatinine (U) [Mass/Vol] Creatinine [Mass/volume] in Urine [facility] Comment on above: No reference range e stablished Creatinine, Urine (Random)on 01-23-2025 Creatinine, Urine (Random) 78.00 mg/dL Normal [facility] Comment on above: Result Comment: No r eference range established Performed By: #### U RTP, UCREA #### [address] No Panel Informationon 01-23 [facility] Protein [Mass/volume] in Uri neOrdered By: Natacha Hess on 01-23-2025 Protein (U) [Mass/Vol] Protein [Mass/volume] in Urine 0-9 [facility] TOTAL PROTEIN, URINEon 01-23 Protein (U) [Mass/Vol] 6 mg/dL 0 - 9 mg/dL N [facility] Total Protein, Urineon 01-23 Protein (U) [Mass/Vol] 6 mg/dL Normal 0-9 [facility] Comment on above: Result Comment: PERF ORMED BY: [place] [address] PATHOLOGIST [employer] LION MURDOCK M.D. Performed By: #### U RTP, UCREA #### [address] Alanine aminotransferase [En zymatic activity/volume] in Serum or PlasmaOrdered By: Natacha Hess on 01-22-2025 ALT [Catalytic activity/Vol] Alanine aminotransferase [Enzymatic activity/volume] in Serum or Plasma 7-52 [facility] Albumin [Mass/volume] in Ser um or Plasma by Bromocresol green (BCG) dye binding methoOrdered By: Natacha Hess on 01-22-2025 Albumin BCG dye [Mass/Vol] Albumin [Mass/volume] in Serum or Plasma by Bromocresol green (BCG) dye binding metho 3.5-5.7 [facility] Alkaline phosphatase [Enzyma tic activity/volume] in Serum or PlasmaOrdered By: Natacha Hess on 01-22-2025 ALP [Catalytic activity/Vol] Alkaline phosphatase [Enzymatic activity/volume] in Serum or Plasma 34-104 [facility] Aspartate aminotransferase [ Enzymatic activity/volume] in Serum or PlasmaOrdered By: Natacha Hess on 01-22-2025 AST [Catalytic activity/Vol] Aspartate aminotransferase [Enzymatic activity/volume] in Serum or Plasma 13-39 [facility] Basophils Auto (Bld) [#/Vol] Ordered By: Natacha Hess on 01-22-2025 Basophils (Bld) [#/Vol] Automated basoph il count 0.0-0.2 [facility] Basophils/100 WBC Auto (Bld) Ordered By: Natacha Hess on 01-22-2025 Basophils/100 WBC (Bld) Automated basophil % . [facility] Bilirubin.total [Mass/volume ] in Serum or PlasmaOrdered By: Natacha Hess on 01-22-2025 Bilirubin [Mass/Vol] Bilirubin.total [Mass/volume] in Serum or Plasma 0.3-1.0 [facility] Calcium [Mass/volume] in Ser um or PlasmaOrdered By: Natacha Hess on 01-22-2025 Calcium [Mass/Vol] Calcium [Mass/volume] in Serum or Plasma 8.6-10.3 [facility] Carbon dioxide, total [Moles /volume] in Serum or PlasmaOrdered By: Natacha Hess on 01-22-2025 CO2 [Moles/Vol] Carbon dioxide, total [Moles/volume] in Serum or Plasma 21.0-31.0 [facility] Chloride [Moles/volume] in S harjit or PlasmaOrdered By: Natacha Hess on 01-22-2025 Chloride [Moles/Vol] Chloride [Moles/volume] in Serum or Plasma 98-107 [facility] Complete Blood Count Auto Di ffon 01-22-2025 Basophils (Bld) [#/Vol] 0.1 10*3/uL Normal 0.0-0.2 [facility] Comment on above: Result Comment: PERF ORMED BY: [place] [address] PATHOLOGIST [employer] LION MURDOCK M.D. Performed By: #### U RTP, UCREA #### [address] Basophils/100 WBC (Bld) 1.0 % Normal . Fartun ramos [facility] Comment on above: Performed By: #### U RTP, UCREA #### [facility] [address] [place] [address] [place] Eosinophils (Bld) [#/Vol] 0.0 10*3/uL Normal 0.0-0.45 [facility] Comment on above: Performed By: #### U RTP, UCREA #### [place] [address] [place] Eosinophils/100 WBC (Bld) 0.3 % Normal . [facility] Comment on above: Performed By: #### U RTP, UCREA #### [address] Erythrocyte distribution width (RBC) [Ratio] 19.1 % High 12.0-14.8 The [facility] Comment on above: Performed By: #### U RTP, UCREA #### [address] Hematocrit (Bld) [Volume fraction] 37.1 % Low 38.8-50.0 [facility] Comment on above: Performed By: #### U RTP, UCREA #### [address] Hemoglobin (Bld) [Mass/Vol] 12.2 g/dL Low 13.0-17.0 [facility] Comment on above: Performed By: #### U RTP, UCREA #### [address] Lymphocytes (Bld) [#/Vol] 2.1 10*3/uL Normal 1.00-4.8 [facility] Comment on above: Performed By: #### U RTP, UCREA #### [address] Lymphocytes/100 WBC (Bld) 19.6 % Normal . [facility] Comment on above: Performed By: #### U RTP, UCREA #### [address] MCH (RBC) [Entitic mass] 27.5 pg Normal 27.5-35.2 [facility] Comment on above: Performed By: #### U RTP, UCREA #### [address] MCV (RBC) [Entitic vol] 83.9 fL Normal 83.5-101 T [facility] Comment on above: Performed By: #### U RTP, UCREA #### [address] Mean Corpuscular HGB Conc 32.8 g/dL Normal 32.5-35.6 [facility] Comment on above: Performed By: #### U RTP, UCREA #### [facility] [address] [place] [address] [place] Monocytes (Bld) [#/Vol] 1.5 10*3/uL High 0.0-0.8 [facility] Comment on above: Performed By: #### U RTP, UCREA #### [address] Monocytes/100 WBC (Bld) 14.1 % Normal . T [facility] Comment on above: Performed By: #### U RTP, UCREA #### [place] [address] [place] Neutrophils (Bld) [#/Vol] 7.1 10*3/uL Normal 1.8-7.7 [facility] Comment on above: Performed By: #### U RTP, UCREA #### [place] [address] [place] Neutrophils/100 WBC (Bld) 65.0 % Normal . [facility] Comment on above: Performed By: #### U RTP, UCREA #### [place] [address] [place] NRBC% 0.2 /100{WBC} Normal 0-0.5 The [facility] Comment on above: Performed By: #### U RTP, UCREA #### [place] [address] [place] Platelet mean volume (Bld) [Entitic vol] 6.7 fL Normal 6.6-10.1 The [facility] Comment on above: Performed By: #### U RTP, UCREA #### [facility] [address] [place] [address] [place] Platelets (Bld) [#/Vol] 476 10*3/uL High 150-450 [facility] Comment on above: Performed By: #### U RTP, UCREA #### [place] [address] [place] RBC (Bld) [#/Vol] 4.42 10*6/uL Normal 3.90-5.60 The [facility] Comment on above: Performed By: #### U RTP, UCREA #### [address] WBC (Bld) [#/Vol] 10.9 10*3/uL High 4.1-10.5 [facility] Comment on above: Performed By: #### U RTP, UCREA #### [address] Comprehensive Metabolic Pane hanna 01-22-2025 Albumin [Mass/Vol] 3.7 g/dL Normal 3.5-5.7 The [facility] Comment on above: Performed By: #### U RTP, UCREA #### [address] Albumin/Globulin [Mass ratio] 1.1 {ratio} Normal [facility] Comment on above: Performed By: #### U RTP, UCREA #### [address] ALP [Catalytic activity/Vol] 54 U/L Normal 34-104 [facility] Comment on above: Performed By: #### U RTP, UCREA #### [address] ALT [Catalytic activity/Vol] 18 U/L Normal 7-52 [facility] Comment on above: Performed By: #### U RTP, UCREA #### [address] Anion gap [Moles/Vol] 9.4 mmol/L Normal 6.0-15.0 [facility] Comment on above: Performed By: #### U RTP, UCREA #### [address] AST [Catalytic activity/Vol] 20 U/L Normal 13-39 [facility] Comment on above: Performed By: #### U RTP, UCREA #### [facility] [address] Bilirubin [Mass/Vol] 0.3 mg/dL Normal 0.3-1.0 [facility] Comment on above: Performed By: #### U RTP, UCREA #### [address] Calcium [Mass/Vol] 9.0 mg/dL Normal 8.6-10.3 The [facility] Comment on above: Performed By: #### U RTP, UCREA #### [address] Chloride [Moles/Vol] 104 mmol/L Normal 98-107 [facility] Comment on above: Performed By: #### U RTP, UCREA #### [address] CO2 [Moles/Vol] 28.5 mmol/L Normal 21.0-31.0 The [facility] Comment on above: Performed By: #### U RTP, UCREA #### [place] [address] [place] Creatinine [Mass/Vol] 0.97 mg/dL Normal 0.70-1.30 [facility] Comment on above: Performed By: #### U RTP, UCREA #### [place] [address] [place] Creatinine Clr Calc Pharmacy 86.49 Normal [facility] Comment on above: Result Comment: PERF ORMED BY: [place] [address] PATHOLOGIST [employer] LION MURDOCK M.D. Performed By: #### U RTP, UCREA #### [place] [address] [place] GFR/1.73 sq M.predicted MDRD (S/P/Bld) [Vol rate/Area] mL/min/{1.73_m2} Normal [facility] Comment on above: Performed By: #### U RTP, UCREA #### [address] Globulin (S) [Mass/Vol] 3.4 g/dL Normal T he [facility] Comment on above: Performed By: #### U RTP UCREA #### [address] Glucose [Mass/Vol] 114 mg/dL High 70-100 The [facility] Comment on above: Result Comment: [place] Glucose Reference Range is dependent on time and content of last meal. Glucose of more than 200 mg/dL in a nonstressed, ambulatory subject supports the diagnosis of Diabetes Mellitus. ADA recommended reference range Performed By: #### U RTPDEWAYNEREEmily #### [address] Potassium [Moles/Vol] 3.9 mmol/L Normal 3.5-5.1 [facility] Comment on above: Performed By: #### U RTPDEWAYNEREEmily #### [address] Protein [Mass/Vol] 7.1 g/dL Normal 6.4-8.9 [facility] Comment on above: Performed By: #### U RTP UCREEmily #### [address] Sodium [Moles/Vol] 138 mmol/L Normal 136-145 [facility] Comment on above: Performed By: #### U RTP UCREA #### [address] Urea nitrogen [Mass/Vol] 12 mg/dL Normal 7-25 [facility] Comment on above: Performed By: #### U RTP UCREA #### [place] [address] [place] Creatinine [Mass/volume] in Serum or PlasmaOrdered By: Natacha Hess on 01-22-2025 Creatinine [Mass/Vol] Creatinine [Mass/volume] in Serum or Plasma 0.70-1.30 [facility] Eosinophils Auto (Bld) [#/Vo l]Ordered By: Natacha Hess on 01-22-2025 Eosinophils (Bld) [#/Vol] Automated eosinophil count 0.0-0.45 [facility] Eosinophils/100 WBC Auto (Bl d)Ordered By: Natacha Hess on 01-22-2025 Eosinophils/100 WBC (Bld) Automated eosinophil % . [facility] Erythrocyte distribution wid th Auto (RBC) [Ratio]Ordered By: Natacha Hess on 01-22-2025 Erythrocyte distribution width (RBC) [Ratio] Erythrocyte distribution width [Ratio] by Automated count High 12.0-14.8 [facility] Globulin Calc (S) [Mass/Vol] Ordered By: Natacha Hess on 01-22-2025 Globulin (S) [Mass/Vol] Serum globulin measurement by calculation (mass/volume) [facility] Glucose [Mass/volume] in Ser um or PlasmaOrdered By: Natacha Hess on 01-22-2025 Glucose [Mass/Vol] Glucose [Mass/volume] in Serum or Plasma High 70-100 [facility] Comment on above: ADA recommended refe rence rangeRandom Glucose Reference Range is dependent on time and content of last meal. Glucose of more than 200 mg/dL in a nonstressed, ambulatory subject supports the diagnosis of Diabetes Mellitus. Hematocrit Auto (Bld) [Volum e fraction]Ordered By: Natacha Hess on 01-22-2025 Hematocrit (Bld) [Volume fraction] Hematocrit [Volume Fraction] of Blood by Automated count Low 38.8-50.0 [facility] Hemoglobin [Mass/volume] in BloodOrdered By: Natacha Hess on 01-22-2025 Hemoglobin (Bld) [Mass/Vol] Hemoglobin [Mass/volume] in Blood Low 13.0-17.0 [facility] Leukocytes [#/volume] correc neetu for nucleated erythrocytes in Blood by Automated counOrdered By: Natacha Hess on 01-22-2025 WBC corrected for nucl RBC Auto (Bld) [#/Vol] Leukocytes [#/volume] corrected for nucleated erythrocytes in Blood by Automated coun High 4.1-10.5 [facility] Lymphocytes Auto (Bld) [#/Vo l]Ordered By: Natacha Hess on 01-22-2025 Lymphocytes (Bld) [#/Vol] Lymphocytes [#/volume] in Blood by Automated count 1.00-4.8 [facility] Lymphocytes/100 WBC Auto (Bl d)Ordered By: Natacha Hess on 01-22-2025 Lymphocytes/100 WBC (Bld) Lymphocytes/100 leukocytes in Blood by Automated count . [facility] MCH Auto (RBC) [Entitic mass ]Ordered By: Natacha Hess on 01-22-2025 MCH (RBC) [Entitic mass] MCH [Entitic ma ss] by Automated count 27.5-35.2 [facility] MCHC Auto (RBC) [Mass/Vol]Or dered By: Natacha Hess on 01-22-2025 MCHC (RBC) [Mass/Vol] MCHC [Mass/volume] by Automated count 32.5-35.6 [facility] MCV Auto (RBC) [Entitic vol] Ordered By: Natacha Hess on 01-22-2025 MCV (RBC) [Entitic vol] MCV [Entitic vol ume] by Automated count 83.5-101 [facility] Monocytes Auto (Bld) [#/Vol] Ordered By: Natacha Hess on 01-22-2025 Monocytes (Bld) [#/Vol] Automated blood monocyte count High 0.0-0.8 [facility] Monocytes/100 WBC Auto (Bld) Ordered By: Natacha Hess on 01-22-2025 Monocytes/100 WBC (Bld) Automated monocyte % . [facility] Neutrophils Auto (Bld) [#/Vo l]Ordered By: Natacha Hess on 01-22-2025 Neutrophils (Bld) [#/Vol] Neutrophils [#/volume] in Blood by Automated count 1.8-7.7 [facility] Neutrophils/100 WBC Auto (Bl d)Ordered By: Natacha Hess on 01-22-2025 Neutrophils/100 WBC (Bld) Automated neutrophil % . [facility] No Panel InformationOrdered By: Natacha Hess on 01-22-2025 Estimated GFR (CKD-EPI) > 60.0 mL/Min [facility] Creatinine Clearance (Chem 86.49 [facility] Nucleated erythrocytes [Pres ence] in Blood by Automated countOrdered By: Natacha Hess on 01-22-2025 Nucleated RBC Auto Ql (Bld) Nucleated erythrocytes [Presence] in Blood by Automated count 0-0.5 [facility] Platelet mean volume Auto (B ld) [Entitic vol]Ordered By: Natacha Hess on 01-22-2025 Platelet mean volume (Bld) [Entitic vol] Platelet mean volume [Entitic volume] in Blood by Automated count 6.6-10.1 [facility] Platelets Auto (Bld) [#/Vol] Ordered By: Natacha Hess on 01-22-2025 Platelets (Bld) [#/Vol] Platelets [#/vol ume] in Blood by Automated count High 150-450 [facility] Potassium [Moles/volume] in Serum or PlasmaOrdered By: Natacha Hess on 01-22-2025 Potassium [Moles/Vol] Potassium [Moles/volume] in Serum or Plasma 3.5-5.1 [facility] Protein [Mass/volume] in Ser um or PlasmaOrdered By: Natacha Hess on 01-22-2025 Protein [Mass/Vol] Protein [Mass/volume] in Serum or Plasma 6.4-8.9 [facility] RBC Auto (Bld) [#/Vol]Ordere d By: Natacha Hess on 01-22-2025 RBC (Bld) [#/Vol] Erythrocytes [#/volume] in Blood by Automated count 3.90-5.60 [facility] Serum or plasma albumin/glob ulin mass ratioOrdered By: Natacha Hess on 01-22-2025 Albumin/Globulin [Mass ratio] Serum or plasma albumin/globulin mass ratio [facility] Serum or plasma anion gap de terminationOrdered By: Natacha Hess on 01-22-2025 Anion gap [Moles/Vol] Serum or plasma anion gap determination 6.0-15.0 [facility] Sodium [Moles/volume] in Ser um or PlasmaOrdered By: Natacha Hess on 01-22-2025 Sodium [Moles/Vol] Sodium [Moles/volume] in Serum or Plasma 136-145 [facility] Urea nitrogen [Mass/volume] in Serum or PlasmaOrdered By: Natacha Hess on 01-22-2025 Urea nitrogen [Mass/Vol] Urea nitrogen [Mass/volume] in Serum or Plasma 7-25 [facility] WBC Auto (Bld) [#/Vol]Ordere d By: Natacha Hess on 01-22-2025 WBC (Bld) [#/Vol] Leukocytes [#/volume] in Blood by Automated count High 4.1-10.5 [facility] [place] inj w/fluoro eval cv lauren ceon 01-04-2025 [place] inj w/fluoro eval cv device [facility] [address] Fluoroscopy Report Signed Patient: Bert Yeung MR#: [id number] 47 : 1950 Acct:[id number] Age/Sex: 74 / M ADM Date: 01/04/25 Loc: Room: Type: [facility] Attending Dr: Natacha Hess MD Copies to: Natacha Hess MD Ordering Provider: Natacha Hess MD Date of Service: 01/04/25 FL/FL inj w/fluoro eval cv device: no blood return port Fluoroscopic assessment for evaluation of [id number] with a contrast injection HISTORY: Intermittent difficulty with blood return from [id number] for one month duration. 5 image was [...] fibrous sheath of the tip of the [id number]. No fracture or kinking. Adequate blood return in supine position. Impression dictated by: Joesph Cleary M.D.01/04/2025 2:33 PM Dictation Location: [facility]- Transcribed By: [facility] 01/04/25 1433 Dictated By: Joesph Cleary DO 01/04/25 1350 Signed By: 01/04/25 1433 Normal [facility] Creatinine (U) [Mass/Vol]on 01-02-2025 Creatinine spec 2 (U) [Mass/Vol] 126 mg/dL [facility] Comment on above: No reference range e stablished Creatinine [Mass/volume] in UrineOrdered By: Natacha Hess on 01-02-2025 Creatinine (U) [Mass/Vol] Creatinine [Mass/volume] in Urine [facility] Comment on above: No reference range e stablished Creatinine, Urine (Random)on 01-02-2025 Creatinine, Urine (Random) 126.00 mg/dL Normal [facility] Comment on above: Result Comment: No r eference range established Performed By: #### C MP #### [address] No Panel Informationon 01-02 [facility] Protein [Mass/volume] in Uri neOrdered By: Natacha Hess on 01-02-2025 Protein (U) [Mass/Vol] Protein [Mass/volume] in Urine High 0-9 [facility] TOTAL PROTEIN, URINEon 01-02 Interpretation and review of laboratory results Abnormal [facility] Protein (U) [Mass/Vol] 14 mg/dL High 0 - 9 mg/dL [facility] Total Protein, Urineon 01-02 Protein (U) [Mass/Vol] 14 mg/dL High 0-9 [facility] Comment on above: Result Comment: PERF ORMED BY: [place] [address] PATHOLOGIST [employer] LION MURDOCK M.D. Performed By: #### C MP #### [address] CBC W Auto Differential pane l (Bld)on 01-01-2025 Basophils (Bld) [#/Vol] 0.1 10*3/uL 0.0 - 0.2 10*3/uL [facility] Basophils/100 WBC Manual cnt (Syn fld) 1.1 % . [facility] Eosinophils (Bld) [#/Vol] 0 10*3/uL 0.0 - 0.45 10*3/uL [facility] Eosinophils/100 WBC Manual cnt (Syn fld) 0.2 % . [facility] Erythrocyte distribution width (RBC) [Ratio] 18.1 % High 12.0 - 14.8 % [facility] Hematocrit (Bld) [Volume fraction] 36.6 % Low 38.8 - 50.0 % [facility] Hemoglobin (Bld) [Mass/Vol] 12 g/dL Low 13.0 - 17.0 g/dL [facility] Interpretation and review of laboratory results Abnormal [facility] Lymphocytes (Bld) [#/Vol] 2 10*3/uL 1.00 - 4.8 10*3/uL [facility] Lymphocytes/100 WBC Manual cnt (Syn fld) 14.6 % . [facility] MCH (RBC) [Entitic mass] 27.7 pg 27. 5 - 35.2 pg [facility] MCHC (RBC) [Mass/Vol] 32.8 g/dL 32.5 - 35.6 g/dL [facility] MCV (RBC) [Entitic vol] 84.6 fL 83.5 - 101 f L [facility] Monocytes (Bld) [#/Vol] 1.4 10*3/uL High 0.0 - 0.8 10*3/uL [facility] Monocytes+Macrophages/10 0 WBC Manual cnt (Syn fld) 10 % . [facility] Neutrophils (Bld) [#/Vol] 10.1 10*3/uL High 1.8 - 7.7 10*3/uL [facility] Neutrophils/100 WBC Manual cnt (Syn fld) 74.1 % . [facility] NRBC 0.1 /100{WBC} 0 - 0.5 /100{WBC} [facility] Platelet mean volume (Bld) [Entitic vol] 6.9 fL 6.6 - 10.1 fL [facility] Platelets (Bld) [#/Vol] 519 10*3/uL High 150 - 450 10*3/uL [facility] RBC LM.HPF (Urine sed) [#/Area] 4.32 10*6/uL 3.90 - 5.60 10*6/uL [facility] WBC (Bld) [#/Vol] 13.6 10*3/uL High 4.1 - 10.5 10*3/uL [facility] WBC LM.HPF (Urine sed) [#/Area] 13.6 10*3/uL High 4.1 - 10.5 10*3/uL [facility] Complete Blood Count Auto Di ffon 01-01-2025 Basophils (Bld) [#/Vol] 0.1 10*3/uL Normal 0.0-0.2 [facility] Comment on above: Result Comment: PERF ORMED BY: [place] [address] PATHOLOGIST [employer] LION MURDOCK M.D. Performed By: #### C MP #### [address] Basophils/100 WBC (Bld) 1.1 % Normal . [facility] Comment on above: Performed By: #### C MP #### [address] Eosinophils (Bld) [#/Vol] 0.0 10*3/uL Normal 0.0-0.45 [facility] Comment on above: Performed By: #### C MP #### [address] Eosinophils/100 WBC (Bld) 0.2 % Normal . [facility] Comment on above: Performed By: #### C MP #### [address] Erythrocyte distribution width (RBC) [Ratio] 18.1 % High 12.0-14.8 [facility] Comment on above: Performed By: #### C MP #### [address] Hematocrit (Bld) [Volume fraction] 36.6 % Low 38.8-50.0 [facility] Comment on above: Performed By: #### C MP #### [address] Hemoglobin (Bld) [Mass/Vol] 12.0 g/dL Low 13.0-17.0 [facility] Comment on above: Performed By: #### C MP #### [address] Lymphocytes (Bld) [#/Vol] 2.0 10*3/uL Normal 1.00-4.8 [facility] Comment on above: Performed By: #### C MP #### [address] Lymphocytes/100 WBC (Bld) 14.6 % Normal . [facility] Comment on above: Performed By: #### C MP #### [address] MCH (RBC) [Entitic mass] 27.7 pg Normal 27.5-35.2 [facility] Comment on above: Performed By: #### C MP #### [address] MCV (RBC) [Entitic vol] 84.6 fL Normal 83.5-101 [facility] Comment on above: Performed By: #### C MP #### [address] Mean Corpuscular HGB Conc 32.8 g/dL Normal 32.5-35.6 [facility] Comment on above: Performed By: #### C MP #### [address] Monocytes (Bld) [#/Vol] 1.4 10*3/uL High 0.0-0.8 [facility] Comment on above: Performed By: #### C MP #### [address] Monocytes/100 WBC (Bld) 10.0 % Normal . [facility] Comment on above: Performed By: #### C MP #### [address] Neutrophils (Bld) [#/Vol] 10.1 10*3/uL High 1.8-7.7 [facility] Comment on above: Performed By: #### C MP #### [address] Neutrophils/100 WBC (Bld) 74.1 % Normal . [facility] Comment on above: Performed By: #### C MP #### [place] [address] [place] NRBC% 0.1 /100{WBC} Normal 0-0.5 [facility] Comment on above: Performed By: #### C MP #### [address] Platelet mean volume (Bld) [Entitic vol] 6.9 fL Normal 6.6-10.1 [facility] Comment on above: Performed By: #### C MP #### [address] Platelets (Bld) [#/Vol] 519 10*3/uL High 150-450 [facility] Comment on above: Performed By: #### C MP #### [address] RBC (Bld) [#/Vol] 4.32 10*6/uL Normal 3.90-5.60 [facility] Comment on above: Performed By: #### C MP #### [address] WBC (Bld) [#/Vol] 13.6 10*3/uL High 4.1-10.5 [facility] Comment on above: Performed By: #### C MP #### [address] Comprehensive Metabolic Pane hanna 01-01-2025 Albumin [Mass/Vol] 3.7 g/dL Normal 3.5-5.7 [facility] Comment on above: Performed By: #### C MP #### [address] Albumin/Globulin [Mass ratio] 1.1 {ratio} Normal [facility] Comment on above: Performed By: #### C MP #### [address] ALP [Catalytic activity/Vol] 53 U/L Normal 34-104 [facility] Comment on above: Performed By: #### C MP #### [address] ALT [Catalytic activity/Vol] 16 U/L Normal 7-52 [facility] Comment on above: Performed By: #### C MP #### [address] Anion gap [Moles/Vol] 9.5 mmol/L Normal 6.0-15.0 [facility] Comment on above: Performed By: #### C MP #### [address] AST [Catalytic activity/Vol] 17 U/L Normal 13-39 [facility] Comment on above: Performed By: #### C MP #### [address] Bilirubin [Mass/Vol] 0.3 mg/dL Normal 0.3-1.0 [facility] Comment on above: Performed By: #### C MP #### [address] Calcium [Mass/Vol] 9.2 mg/dL Normal 8.6-10.3 [facility] Comment on above: Performed By: #### C MP #### [address] Chloride [Moles/Vol] 103 mmol/L Normal 98-107 [facility] Comment on above: Performed By: #### C MP #### [address] CO2 [Moles/Vol] 27.1 mmol/L Normal 21.0-31.0 [facility] Comment on above: Performed By: #### C MP #### [address] Creatinine [Mass/Vol] 0.99 mg/dL Normal 0.70-1.30 [facility] Comment on above: Performed By: #### C MP #### [address] Creatinine Clr Calc Pharmacy 85.58 Normal [facility] Comment on above: Result Comment: PERF ORMED BY: [place] [address] PATHOLOGIST [employer] LION MURDOCK M.D. Performed By: #### C MP #### [place] [address] [place] GFR/1.73 sq M.predicted MDRD (S/P/Bld) [Vol rate/Area] mL/min/{1.73_m2} Normal [facility] Comment on above: Performed By: #### C MP #### [address] Globulin (S) [Mass/Vol] 3.5 g/dL Normal [facility] Comment on above: Performed By: #### C MP #### [address] Glucose [Mass/Vol] 128 mg/dL High 70-100 [facility] Comment on above: Result Comment: [place] Glucose Reference Range is dependent on time and content of last meal. Glucose of more than 200 mg/dL in a nonstressed, ambulatory subject supports the diagnosis of Diabetes Mellitus. ADA recommended reference range Performed By: #### C MP #### [address] Potassium [Moles/Vol] 3.6 mmol/L Normal 3.5-5.1 [facility] Comment on above: Performed By: #### C MP #### [address] Protein [Mass/Vol] 7.2 g/dL Normal 6.4-8.9 [facility] Comment on above: Performed By: #### C MP #### [address] Sodium [Moles/Vol] 136 mmol/L Normal 136-145 [facility] Comment on above: Performed By: #### C MP #### [address] Urea nitrogen [Mass/Vol] 16 mg/dL Normal 7-25 [facility] Comment on above: Performed By: #### C MP #### [place] [id number] [facility] Comprehensive metabolic pane hnana 01-01-2025 Albumin [Mass/Vol] 3.7 g/dL 3.5 - 5.7 g/dL [facility] Albumin/Globulin [Mass ratio] 1.1 {ratio} [facility] ALP [Catalytic activity/Vol] 53 U/L 34 - 104 U/L [facility] ALT [Catalytic activity/Vol] 16 U/L 7 - 52 U/L [facility] Anion gap [Moles/Vol] 9.5 mmol/L 6.0 - 15.0 meq/L [facility] AST [Catalytic activity/Vol] 17 U/L 13 - 39 U/L [facility] Bilirubin [Mass/Vol] 0.3 mg/dL 0.3 - 1 .0 mg/dL [facility] Calcium [Mass/Vol] 9.2 mg/dL 8.6 - 10. 3 mg/dL [facility] Chloride [Moles/Vol] 103 mmol/L 98 - 10 7 mmol/L [facility] CO2 [Moles/Vol] 27.1 mmol/L 21.0 - 31.0 mmol/L [facility] Creatinine (U) [Mass/Vol] 0.99 mg/dL 0.70 - 1.30 mg/dL [facility] CREATININE CLR CALC PHARMACY 85.58 [facility] ESTIMATED GFR mL/Min [facility] Globulin (S) [Mass/Vol] 3.5 g/dL N [facility] Glucose [Mass/Vol] 128 mg/dL High 70 - 100 mg/dL [facility] Comment on above: Random Glucose Refer ence Range is dependent on time and content of last meal. Glucose of more than 200 mg/dL in a nonstressed, ambulatory subject supports the diagnosis of Diabetes Mellitus. ADA recommended reference range Interpretation and review of laboratory results Abnormal [facility] Potassium [Moles/Vol] 3.6 mmol/L 3.5 - 5.1 mmol/L [facility] Protein [Mass/Vol] 7.2 g/dL 6.4 - 8.9 g/dL [facility] Sodium [Moles/Vol] 136 mmol/L 136 - 145 mmol/L [facility] Urea nitrogen [Mass/Vol] 16 mg/dL 7 - 25 mg/d L [facility] Creatinine (U) [Mass/Vol]on 12-12-2024 Creatinine spec 2 (U) [Mass/Vol] 90 mg/dL [facility] Comment on above: No reference range e stablished Creatinine, Urine (Random)on 12-12-2024 Creatinine, Urine (Random) 90.00 mg/dL Normal [facility] Comment on above: Result Comment: No r eference range established Performed By: #### U RTP, UCREA #### [facility] [address] No Panel Informationon 12-12 [facility] TOTAL PROTEIN, URINEon 12-12 Interpretation and review of laboratory results Abnormal [facility] Protein (U) [Mass/Vol] 10 mg/dL High 0 - 9 mg/dL [facility] Total Protein, Urineon 12-12 Protein (U) [Mass/Vol] 10 mg/dL High 0-9 [facility] e [facility] Comment on above: Result Comment: PERF ORMED BY: [facility] [address] [place] [address] PATHOLOGIST [employer] LION MURDOCK M.D. Performed By: #### U RTP, UCREA #### [facility] [address] Alanine aminotransferase [En zymatic activity/volume] in Serum or PlasmaOrdered By: Natacha Hess on 12-10-2024 ALT [Catalytic activity/Vol] Alanine aminotransferase [Enzymatic activity/volume] in Serum or Plasma 7-52 [facility] Albumin [Mass/volume] in Ser um or Plasma by Bromocresol green (BCG) dye binding methoOrdered By: Natacha Hess on 12-10-2024 Albumin BCG dye [Mass/Vol] Albumin [Mass/volume] in Serum or Plasma by Bromocresol green (BCG) dye binding metho 3.5-5.7 [facility] Alkaline phosphatase [Enzyma tic activity/volume] in Serum or PlasmaOrdered By: Natacha Hess on 12-10-2024 ALP [Catalytic activity/Vol] Alkaline phosphatase [Enzymatic activity/volume] in Serum or Plasma 34-104 [facility] Anisocytosis LM Ql (Bld)Orde red By: Natacha Hess on 12-10-2024 Anisocytosis Ql (Bld) Anisocytosis [Presence] in Blood by Light microscopy [facility] Aspartate aminotransferase [ Enzymatic activity/volume] in Serum or PlasmaOrdered By: Natacha Hess on 12-10-2024 AST [Catalytic activity/Vol] Aspartate aminotransferase [Enzymatic activity/volume] in Serum or Plasma 13-39 [facility] Basophils Auto (Bld) [#/Vol] Ordered By: Natacha Hess on 12-10-2024 Basophils (Bld) [#/Vol] Automated basoph il count 0.0-0.2 [facility] Basophils/100 WBC Auto (Bld) Ordered By: Natacha Hess on 12-10-2024 Basophils/100 WBC (Bld) Automated basophil % . [facility] Bilirubin.total [Mass/volume ] in Serum or PlasmaOrdered By: Natacha Hess on 12-10-2024 Bilirubin [Mass/Vol] Bilirubin.total [Mass/volume] in Serum or Plasma 0.3-1.0 [facility] CT chest w conon 12-10-2024 CT chest w con [facility] [place] [address] CT Scan Report Signed Patient: Bert Yeung MR#: [id number] 47 : 1950 Acct:[id number] Age/Sex: 74 / M ADM Date: 12/10/24 Loc: XT Room: Type: [facility] Attending Dr: Natacha Hess MD Copies to: MD Mari Garner APRN Ordering Provider: Mari Diaz APRN Date of Service: 12/10/24 CT/CT chest w con: Z01.89 - Encounter for other specified special examinations CT CHEST WITH INTRAVENOUS CONTRAST: CLINICAL HISTORY: Restaging lung cancer. COMPARISON: CT chest 09/10/2024 TECHNIQUE: Spiral images were obtained through the [...] associated small right- sided loculated pleural effusion. Previously identified residual mass appears to have resolved with residual consolidation seen. Peripheral reticular changes. No pneumothorax. No left-sided pleural effusion. No new suspicious pulmonary nodule. Soft tissues/Bones: Soft tissues demonstrate no acute findings. Osseous structures demonstrate degenerative change. Abd: Gallbladder is contracted. No acute findings. Subcentimeter low attenuating lesion seen adjacent to the gallbladder too small for characterization but appears unchanged from prior study. CT/CT chest w con IMPRESSION: Interval resolution of the previously identified mass involving the right lung suggestive of response to therapy with residual posttreatment changes. Continued CT follow-up is recommended. No CT evidence of progression disease is seen. Impression dictated by: Crescencio Blanca Jr., Scooter12/10/2024 1:33 PM Dictation Location: [place] [address] Transcribed By: [facility] 12/10/24 1333 Dictated By: Crescencio Blanca Jr, DO 12/10/24 1314 Signed By: 12/10/24 1333 Normal [facility] Calcium [Mass/volume] in Ser um or PlasmaOrdered By: Natacha Hess on 12-10-2024 Calcium [Mass/Vol] Calcium [Mass/volume] in Serum or Plasma 8.6-10.3 [facility] Carbon dioxide, total [Moles /volume] in Serum or PlasmaOrdered By: Natacha Hess on 12-10-2024 CO2 [Moles/Vol] Carbon dioxide, total [Moles/volume] in Serum or Plasma 21.0-31.0 [facility] Chloride [Moles/volume] in S harjit or PlasmaOrdered By: Natacha Hess on 12-10-2024 Chloride [Moles/Vol] Chloride [Moles/volume] in Serum or Plasma 98-107 [facility] Comprehensive Metabolic Pane hanna 12-10-2024 Albumin [Mass/Vol] 3.8 g/dL Normal 3.5-5.7 [facility] Comment on above: Performed By: #### C MP #### [facility] [address] [place] [address] Albumin/Globulin [Mass ratio] 1.1 {ratio} Normal [facility] Comment on above: Performed By: #### C MP #### [address] ALP [Catalytic activity/Vol] 53 U/L Normal 34-104 [facility] Comment on above: Performed By: #### C MP #### [address] ALT [Catalytic activity/Vol] 11 U/L Normal 7-52 [facility] Comment on above: Performed By: #### C MP #### [address] Anion gap [Moles/Vol] 12.2 mmol/L Normal 6.0-15.0 [facility] e [facility] Comment on above: Performed By: #### C MP #### [address] AST [Catalytic activity/Vol] 16 U/L Normal 13-39 [facility] Comment on above: Performed By: #### C MP #### [address] Bilirubin [Mass/Vol] 0.3 mg/dL Normal 0.3-1.0 [facility] Comment on above: Performed By: #### C MP #### [address] Calcium [Mass/Vol] 9.6 mg/dL Normal 8.6-10.3 [facility] Comment on above: Performed By: #### C MP #### [address] Chloride [Moles/Vol] 101 mmol/L Normal 98-107 [facility] Comment on above: Performed By: #### C MP #### [address] CO2 [Moles/Vol] 26.6 mmol/L Normal 21.0-31.0 [facility] Comment on above: Performed By: #### C MP #### [address] Creatinine [Mass/Vol] 1.02 mg/dL Normal 0.70-1.30 [facility] Comment on above: Performed By: #### C MP #### [address] Creatinine Clr Calc Pharmacy 83.60 Normal [facility] Comment on above: Result Comment: PERF ORMED BY: [place] [address] PATHOLOGIST [employer] LION MURDOCK M.D. Performed By: #### C MP #### [address] GFR/1.73 sq M.predicted MDRD (S/P/Bld) [Vol rate/Area] mL/min/{1.73_m2} Normal [facility] Comment on above: Performed By: #### C MP #### [address] Globulin (S) [Mass/Vol] 3.5 g/dL Normal T he [facility] Comment on above: Performed By: #### C MP #### [address] Glucose [Mass/Vol] 101 mg/dL High 70-100 [facility] Comment on above: Result Comment: [facility] Glucose Reference Range is dependent on time and content of last meal. Glucose of more than 200 mg/dL in a nonstressed, ambulatory subject supports the diagnosis of Diabetes Mellitus. ADA recommended reference range Performed By: #### C MP #### [address] Potassium [Moles/Vol] 3.8 mmol/L Normal 3.5-5.1 [facility] Comment on above: Performed By: #### C MP #### [address] Protein [Mass/Vol] 7.3 g/dL Normal 6.4-8.9 [facility] Comment on above: Performed By: #### C MP #### [address] [place] [address] [facility] Sodium [Moles/Vol] 136 mmol/L Normal 136-145 [facility] Comment on above: Performed By: #### C MP #### [facility] [address] [place] [id number] [facility] Urea nitrogen [Mass/Vol] 10 mg/dL Normal 7-25 [facility] Comment on above: Performed By: #### C MP #### [facility] [address] [place] [id number] [facility] Comprehensive metabolic pane hanna 12-10-2024 Albumin [Mass/Vol] 3.8 g/dL 3.5 - 5.7 g/dL [facility] Albumin/Globulin [Mass ratio] 1.1 {ratio} [facility] ALP [Catalytic activity/Vol] 53 U/L 34 - 104 U/L [facility] ALT [Catalytic activity/Vol] 11 U/L 7 - 52 U/L [facility] Anion gap [Moles/Vol] 12.2 mmol/L 6.0 - 15.0 meq/L [facility] AST [Catalytic activity/Vol] 16 U/L 13 - 39 U/L [facility] Bilirubin [Mass/Vol] 0.3 mg/dL 0.3 - 1 .0 mg/dL [facility] Calcium [Mass/Vol] 9.6 mg/dL 8.6 - 10. 3 mg/dL [facility] Chloride [Moles/Vol] 101 mmol/L 98 - 10 7 mmol/L [facility] CO2 [Moles/Vol] 26.6 mmol/L 21.0 - 31.0 mmol/L [facility] Creatinine (U) [Mass/Vol] 1.02 mg/dL 0.70 - 1.30 mg/dL [facility] CREATININE CLR CALC PHARMACY 83.6 [facility] ESTIMATED GFR mL/Min [facility] Globulin (S) [Mass/Vol] 3.5 g/dL N [facility] Glucose [Mass/Vol] 101 mg/dL High 70 - 100 mg/dL [facility] Comment on above: Random Glucose Refer ence Range is dependent on time and content of last meal. Glucose of more than 200 mg/dL in a nonstressed, ambulatory subject supports the diagnosis of Diabetes Mellitus. ADA recommended reference range Interpretation and review of laboratory results Abnormal [facility] Potassium [Moles/Vol] 3.8 mmol/L 3.5 - 5.1 mmol/L [facility] Protein [Mass/Vol] 7.3 g/dL 6.4 - 8.9 g/dL [facility] Sodium [Moles/Vol] 136 mmol/L 136 - 145 mmol/L [facility] Urea nitrogen [Mass/Vol] 10 mg/dL 7 - 25 mg/d L [facility] Creatinine [Mass/volume] in Serum or PlasmaOrdered By: Natacha Hess on 12-10-2024 Creatinine [Mass/Vol] Creatinine [Mass/volume] in Serum or Plasma 0.70-1.30 [facility] Eosinophils Auto (Bld) [#/Vo l]Ordered By: Natacha Hess on 12-10-2024 Eosinophils (Bld) [#/Vol] Automated eosinophil count 0.0-0.45 [facility] Eosinophils/100 WBC Auto (Bl d)Ordered By: Natacha Hess on 12-10-2024 Eosinophils/100 WBC (Bld) Automated eosinophil % . [facility] Erythrocyte distribution wid th Auto (RBC) [Ratio]Ordered By: Natacha Hess on 12-10-2024 Erythrocyte distribution width (RBC) [Ratio] Erythrocyte distribution width [Ratio] by Automated count High 12.0-14.8 [facility] Erythrocyte morphology findi ng [Identifier] in BloodOrdered By: Natacha Hess on 12-10-2024 RBC morphology finding Nom (Bld) RBC morphology [facility] Globulin Calc (S) [Mass/Vol] Ordered By: Natacha Hess on 12-10-2024 Globulin (S) [Mass/Vol] Serum globulin measurement by calculation (mass/volume) [facility] Glucose [Mass/volume] in Ser um or PlasmaOrdered By: Natacha Hess on 12-10-2024 Glucose [Mass/Vol] Glucose [Mass/volume] in Serum or Plasma High 70-100 [facility] Comment on above: ADA recommended refe rence rangeRandom Glucose Reference Range is dependent on time and content of last meal. Glucose of more than 200 mg/dL in a nonstressed, ambulatory subject supports the diagnosis of Diabetes Mellitus. Hematocrit Auto (Bld) [Volum e fraction]Ordered By: Natacha Hess on 12-10-2024 Hematocrit (Bld) [Volume fraction] Hematocrit [Volume Fraction] of Blood by Automated count 38.8-50.0 [facility] Hemoglobin [Mass/volume] in BloodOrdered By: Natacha Hess on 12-10-2024 Hemoglobin (Bld) [Mass/Vol] Hemoglobin [Mass/volume] in Blood 13.0-17.0 [facility] Leukocytes [#/volume] correc neetu for nucleated erythrocytes in Blood by Automated counOrdered By: Natacha Hess on 12-10-2024 WBC corrected for nucl RBC Auto (Bld) [#/Vol] Leukocytes [#/volume] corrected for nucleated erythrocytes in Blood by Automated coun High 4.1-10.5 [facility] Lymphocytes Auto (Bld) [#/Vo l]Ordered By: Natacha Hess on 12-10-2024 Lymphocytes (Bld) [#/Vol] Lymphocytes [#/volume] in Blood by Automated count 1.00-4.8 [facility] Lymphocytes/100 WBC Auto (Bl d)Ordered By: Natacha Hess on 12-10-2024 Lymphocytes/100 WBC (Bld) Lymphocytes/100 leukocytes in Blood by Automated count . [facility] MCH Auto (RBC) [Entitic mass ]Ordered By: Natacha Hess on 12-10-2024 MCH (RBC) [Entitic mass] MCH [Entitic ma ss] by Automated count 27.5-35.2 [facility] MCHC Auto (RBC) [Mass/Vol]Or dered By: Natacha Hess on 12-10-2024 MCHC (RBC) [Mass/Vol] MCHC [Mass/volume] by Automated count 32.5-35.6 [facility] MCV Auto (RBC) [Entitic vol] Ordered By: Natacha Hess on 12-10-2024 MCV (RBC) [Entitic vol] MCV [Entitic vol ume] by Automated count 83.5-101 [facility] Monocytes Auto (Bld) [#/Vol] Ordered By: Natacha Hess on 12-10-2024 Monocytes (Bld) [#/Vol] Automated blood monocyte count High 0.0-0.8 [facility] Monocytes/100 WBC Auto (Bld) Ordered By: Natacha Hess on 12-10-2024 Monocytes/100 WBC (Bld) Automated monocyte % . [facility] Neutrophils Auto (Bld) [#/Vo l]Ordered By: Natacha Hess on 12-10-2024 Neutrophils (Bld) [#/Vol] Neutrophils [#/volume] in Blood by Automated count High 1.8-7.7 [facility] Neutrophils/100 WBC Auto (Bl d)Ordered By: Natacha Hess on 12-10-2024 Neutrophils/100 WBC (Bld) Automated neutrophil % . [facility] No Panel InformationOrdered By: Natacha Hess on 12-10-2024 Estimated GFR (CKD-EPI) > 60.0 mL/Min [facility] Pharm[facility] Creatinine Clearance (Chem 83.60 [facility] Nucleated erythrocytes [Pres ence] in Blood by Automated countOrdered By: Natacha Hess on 12-10-2024 Nucleated RBC Auto Ql (Bld) Nucleated erythrocytes [Presence] in Blood by Automated count 0-0.5 [facility] Platelet adequacy [Presence] in Blood by Light microscopyOrdered By: Natacha Hess on 12-10-2024 Platelets LM Ql (Bld) Platelet adequacy [Presence] in Blood by Light microscopy Normal [facility] Platelet mean volume Auto (B ld) [Entitic vol]Ordered By: Natacha Hess on 12-10-2024 Platelet mean volume (Bld) [Entitic vol] Platelet mean volume [Entitic volume] in Blood by Automated count 6.6-10.1 [facility] Platelet morphology finding [Identifier] in BloodOrdered By: Natacha Hess on 12-10-2024 Platelet morphology finding Nom (Bld) Platelet morphology finding [Identifier] in Blood Normal [facility] Platelets Auto (Bld) [#/Vol] Ordered By: Natacha Hess on 12-10-2024 Platelets (Bld) [#/Vol] Platelets [#/vol ume] in Blood by Automated count High 150-450 [facility] Potassium [Moles/volume] in Serum or PlasmaOrdered By: Natacha Hess on 12-10-2024 Potassium [Moles/Vol] Potassium [Moles/volume] in Serum or Plasma 3.5-5.1 [facility] Protein [Mass/volume] in Ser um or PlasmaOrdered By: Natacha Hess on 12-10-2024 Protein [Mass/Vol] Protein [Mass/volume] in Serum or Plasma 6.4-8.9 [facility] RBC Auto (Bld) [#/Vol]Ordere d By: Natacha Hess on 12-10-2024 RBC (Bld) [#/Vol] Erythrocytes [#/volume] in Blood by Automated count 3.90-5.60 [facility] Scan and CBCon 12-10-2024 Anisocytosis Ql (Bld) Moderate Normal [facility] Comment on above: Performed By: #### C MP #### [address] Basophils (Bld) [#/Vol] 0.1 10*3/uL Normal 0.0-0.2 [facility] Comment on above: Performed By: #### C MP #### [address] Basophils/100 WBC (Bld) 1.0 % Normal . T [facility] Comment on above: Performed By: #### C MP #### [address] Eosinophils (Bld) [#/Vol] 0.0 10*3/uL Normal 0.0-0.45 [facility] Comment on above: Performed By: #### C MP #### [address] Eosinophils/100 WBC (Bld) 0.2 % Normal . [facility] Comment on above: Performed By: #### C MP #### [address] Erythrocyte distribution width (RBC) [Ratio] 17.4 % High 12.0-14.8 [facility] Comment on above: Performed By: #### C MP #### [address] Hematocrit (Bld) [Volume fraction] 38.8 % Normal 38.8-50.0 [facility] Comment on above: Performed By: #### C MP #### [address] Hemoglobin (Bld) [Mass/Vol] 13.0 g/dL Normal 13.0-17.0 [facility] Comment on above: Performed By: #### C MP #### [address] Lymphocytes (Bld) [#/Vol] 2.1 10*3/uL Normal 1.00-4.8 [facility] Comment on above: Performed By: #### C MP #### [address] Lymphocytes/100 WBC (Bld) 16.6 % Normal . [facility] Comment on above: Performed By: #### C MP #### [address] MCH (RBC) [Entitic mass] 28.5 pg Normal 27.5-35.2 [facility] Comment on above: Performed By: #### C MP #### [address] MCV (RBC) [Entitic vol] 85.2 fL Normal 83.5-101 [facility] Comment on above: Performed By: #### C MP #### [address] Mean Corpuscular HGB Conc 33.5 g/dL Normal 32.5-35.6 [facility] Comment on above: Performed By: #### C MP #### [address] Monocytes (Bld) [#/Vol] 1.8 10*3/uL High 0.0-0.8 [facility] Comment on above: Performed By: #### C MP #### [address] Monocytes/100 WBC (Bld) 14.0 % Normal . [facility] Comment on above: Performed By: #### C MP #### [address] Neutrophils (Bld) [#/Vol] 8.8 10*3/uL High 1.8-7.7 [facility] Comment on above: Performed By: #### C MP #### [address] Neutrophils/100 WBC (Bld) 68.2 % Normal . [facility] Comment on above: Performed By: #### C MP #### [address] NRBC% 0.1 /100{WBC} Normal 0-0.5 [facility] Comment on above: Performed By: #### C MP #### [address] Platelet Estimate Increased Normal Normal [facility] Comment on above: Performed By: #### C MP #### [address] Platelet mean volume (Bld) [Entitic vol] 6.8 fL Normal 6.6-10.1 [facility] Comment on above: Performed By: #### C MP #### [address] Platelet Morphology Normal Normal Normal [facility] Comment on above: Result Comment: PERF ORMED BY: [place] [address] PATHOLOGIST [employer] LION MURDOCK M.D. Performed By: #### C MP #### [place] [address] [place] Platelets (Bld) [#/Vol] 543 10*3/uL High 150-450 [facility] Comment on above: Performed By: #### C MP #### [place] [address] [place] RBC (Bld) [#/Vol] 4.56 10*6/uL Normal 3.90-5.60 [facility] Comment on above: Performed By: #### C MP #### [place] [address] [place] WBC (Bld) [#/Vol] 12.8 10*3/uL High 4.1-10.5 [facility] Comment on above: Performed By: #### C MP #### [address] Serum or plasma albumin/glob ulin mass ratioOrdered By: Natacha Hess on 12-10-2024 Albumin/Globulin [Mass ratio] Serum or plasma albumin/globulin mass ratio [facility] Serum or plasma anion gap de terminationOrdered By: Natacha Hess on 12-10-2024 Anion gap [Moles/Vol] Serum or plasma anion gap determination 6.0-15.0 [facility] Sodium [Moles/volume] in Ser um or PlasmaOrdered By: Natacha Hess on 12-10-2024 Sodium [Moles/Vol] Sodium [Moles/volume] in Serum or Plasma 136-145 [facility] Urea nitrogen [Mass/volume] in Serum or PlasmaOrdered By: Natacha Hess on 12-10-2024 Urea nitrogen [Mass/Vol] Urea nitrogen [Mass/volume] in Serum or Plasma 7-25 [facility] WBC Auto (Bld) [#/Vol]Ordere d By: Natacha Hess on 12-10-2024 WBC (Bld) [#/Vol] Leukocytes [#/volume] in Blood by Automated count High 4.1-10.5 [facility] Creatinine (U) [Mass/Vol]on 11-20-2024 Creatinine spec 2 (U) [Mass/Vol] 105 mg/dL [facility] Comment on above: No reference range e stablished Creatinine [Mass/volume] in UrineOrdered By: Natacha Hess on 11-20-2024 Creatinine (U) [Mass/Vol] Creatinine [Mass/volume] in Urine [facility] Comment on above: No reference range e stablished Creatinine, Urine (Random)on 11-20-2024 Creatinine, Urine (Random) 105.00 mg/dL Normal [facility] Comment on above: Result Comment: No r eference range established Performed By: #### U CREA, URTP #### [address] No Panel Informationon 11-20 [facility] Protein [Mass/volume] in Uri neOrdered By: Natacha Hess on 11-20-2024 Protein (U) [Mass/Vol] Protein [Mass/volume] in Urine High 0-9 [facility] TOTAL PROTEIN, URINEon 11-20 Interpretation and review of laboratory results Abnormal [facility] Protein (U) [Mass/Vol] 11 mg/dL High 0 - 9 mg/dL [facility] Total Protein, Urineon 11-20 Protein (U) [Mass/Vol] 11 mg/dL High 0-9 [facility] Comment on above: Result Comment: PERF ORMED BY: [facility] [address] [place] [address] PATHOLOGIST [employer] LION MURDOCK M.D. Performed By: #### U CREA, URTP #### [facility] [address] Alanine aminotransferase [En zymatic activity/volume] in Serum or PlasmaOrdered By: Natacha Hess on 11-19-2024 ALT [Catalytic activity/Vol] Alanine aminotransferase [Enzymatic activity/volume] in Serum or Plasma 7-52 [facility] Albumin [Mass/volume] in Ser um or Plasma by Bromocresol green (BCG) dye binding methoOrdered By: Natacha Hess on 11-19-2024 Albumin BCG dye [Mass/Vol] Albumin [Mass/volume] in Serum or Plasma by Bromocresol green (BCG) dye binding metho 3.5-5.7 [facility] Alkaline phosphatase [Enzyma tic activity/volume] in Serum or PlasmaOrdered By: Natacha Hess on 11-19-2024 ALP [Catalytic activity/Vol] Alkaline phosphatase [Enzymatic activity/volume] in Serum or Plasma 34-104 [facility] Aspartate aminotransferase [ Enzymatic activity/volume] in Serum or PlasmaOrdered By: Natacha Hess on 11-19-2024 AST [Catalytic activity/Vol] Aspartate aminotransferase [Enzymatic activity/volume] in Serum or Plasma 13-39 [facility] Bilirubin.total [Mass/volume ] in Serum or PlasmaOrdered By: Natacha Hess on 11-19-2024 Bilirubin [Mass/Vol] Bilirubin.total [Mass/volume] in Serum or Plasma 0.3-1.0 [facility] Calcium [Mass/volume] in Ser um or PlasmaOrdered By: Natacha Hess on 11-19-2024 Calcium [Mass/Vol] Calcium [Mass/volume] in Serum or Plasma 8.6-10.3 [facility] Carbon dioxide, total [Moles /volume] in Serum or PlasmaOrdered By: Natacha Hess on 11-19-2024 CO2 [Moles/Vol] Carbon dioxide, total [Moles/volume] in Serum or Plasma 21.0-31.0 [facility] Chloride [Moles/volume] in S harjit or PlasmaOrdered By: Natacha Hess on 11-19-2024 Chloride [Moles/Vol] Chloride [Moles/volume] in Serum or Plasma 98-107 [facility] Comprehensive Metabolic Pane hanna 11-19-2024 Albumin [Mass/Vol] 3.8 g/dL Normal 3.5-5.7 [facility] Comment on above: Performed By: #### U CREA, URTP #### [address] Albumin/Globulin [Mass ratio] 1.1 {ratio} Normal [facility] Comment on above: Performed By: #### U CREA, URTP #### [address] ALP [Catalytic activity/Vol] 53 U/L Normal 34-104 [facility] Comment on above: Performed By: #### U CREA, URTP #### [address] ALT [Catalytic activity/Vol] 16 U/L Normal 7-52 [facility] Comment on above: Performed By: #### U CREA, URTP #### [address] Anion gap [Moles/Vol] 17.5 mmol/L High 6.0-15.0 [facility] Comment on above: Performed By: #### U CREA, URTP #### [address] AST [Catalytic activity/Vol] 15 U/L Normal 13-39 [facility] Comment on above: Performed By: #### U CREA, URTP #### [facility] [address] Bilirubin [Mass/Vol] 0.5 mg/dL Normal 0.3-1.0 [facility] Comment on above: Performed By: #### U CREA, URTP #### [address] Calcium [Mass/Vol] 9.4 mg/dL Normal 8.6-10.3 [facility] Comment on above: Performed By: #### U CREA, URTP #### [address] Chloride [Moles/Vol] 100 mmol/L Normal 98-107 [facility] Comment on above: Performed By: #### U CREA, URTP #### [address] CO2 [Moles/Vol] 27.2 mmol/L Normal 21.0-31.0 [facility] Comment on above: Performed By: #### U CREA, URTP #### [address] Creatinine [Mass/Vol] 1.12 mg/dL Normal 0.70-1.30 [facility] Comment on above: Performed By: #### U CREA, URTP #### [address] Creatinine Clr Calc Pharmacy 77.07 Normal [facility] Comment on above: Result Comment: PERF ORMED BY: [place] [address] PATHOLOGIST [employer] LION MURDOCK M.D. Performed By: #### U CREA, URTP #### [address] GFR/1.73 sq M.predicted MDRD (S/P/Bld) [Vol rate/Area] mL/min/{1.73_m2} Normal [facility] Comment on above: Performed By: #### U CREA, URTP #### [facility] [address] Globulin (S) [Mass/Vol] 3.5 g/dL Normal [facility] Comment on above: Performed By: #### U CREA, URTP #### [address] Glucose [Mass/Vol] 127 mg/dL High 70-100 [facility] Comment on above: Result Comment: [place] Glucose Reference Range is dependent on time and content of last meal. Glucose of more than 200 mg/dL in a nonstressed, ambulatory subject supports the diagnosis of Diabetes Mellitus. ADA recommended reference range Performed By: #### U CREA, URTP #### [address] Potassium [Moles/Vol] 3.7 mmol/L Normal 3.5-5.1 [facility] Comment on above: Performed By: #### U CREA, URTP #### [address] Protein [Mass/Vol] 7.3 g/dL Normal 6.4-8.9 [facility] Comment on above: Performed By: #### U CREA, URTP #### [address] Sodium [Moles/Vol] 141 mmol/L Normal 136-145 [facility] Comment on above: Performed By: #### U CREA, URTP #### [facility] [address] [place] [address] [place] Urea nitrogen [Mass/Vol] 12 mg/dL Normal 7-25 [facility] Comment on above: Performed By: #### U CREA, URTP #### [address] Comprehensive metabolic pane hanna 11-19-2024 Albumin [Mass/Vol] 3.8 g/dL 3.5 - 5.7 g/dL [facility] Albumin/Globulin [Mass ratio] 1.1 {ratio} [facility] ALP [Catalytic activity/Vol] 53 U/L 34 - 104 U/L [facility] ALT [Catalytic activity/Vol] 16 U/L 7 - 52 U/L [facility] Anion gap [Moles/Vol] 17.5 mmol/L High 6.0 - 15.0 meq/L [facility] AST [Catalytic activity/Vol] 15 U/L 13 - 39 U/L [facility] Bilirubin [Mass/Vol] 0.5 mg/dL 0.3 - 1 .0 mg/dL [facility] Calcium [Mass/Vol] 9.4 mg/dL 8.6 - 10. 3 mg/dL [facility] Chloride [Moles/Vol] 100 mmol/L 98 - 10 7 mmol/L [facility] CO2 [Moles/Vol] 27.2 mmol/L 21.0 - 31.0 mmol/L [facility] Creatinine (U) [Mass/Vol] 1.12 mg/dL 0.70 - 1.30 mg/dL [facility] CREATININE CLR CALC PHARMACY 77.07 [facility] ESTIMATED GFR mL/Min [facility] Globulin (S) [Mass/Vol] 3.5 g/dL N [facility] Glucose [Mass/Vol] 127 mg/dL High 70 - 100 mg/dL [facility] Comment on above: Random Glucose Refer ence Range is dependent on time and content of last meal. Glucose of more than 200 mg/dL in a nonstressed, ambulatory subject supports the diagnosis of Diabetes Mellitus. ADA recommended reference range Interpretation and review of laboratory results Abnormal [facility] Potassium [Moles/Vol] 3.7 mmol/L 3.5 - 5.1 mmol/L [facility] Protein [Mass/Vol] 7.3 g/dL 6.4 - 8.9 g/dL [facility] Sodium [Moles/Vol] 141 mmol/L 136 - 145 mmol/L [facility] Urea nitrogen [Mass/Vol] 12 mg/dL 7 - 25 mg/d L [facility] Creatinine [Mass/volume] in Serum or PlasmaOrdered By: Natacha Hess on 11-19-2024 Creatinine [Mass/Vol] Creatinine [Mass/volume] in Serum or Plasma 0.70-1.30 [facility] Globulin Calc (S) [Mass/Vol] Ordered By: Natacha Hess on 11-19-2024 Globulin (S) [Mass/Vol] Serum globulin measurement by calculation (mass/volume) [facility] Glucose [Mass/volume] in Ser um or PlasmaOrdered By: Natacha Hess on 11-19-2024 Glucose [Mass/Vol] Glucose [Mass/volume] in Serum or Plasma High 70-100 [facility] Comment on above: ADA recommended refe rence rangeRandom Glucose Reference Range is dependent on time and content of last meal. Glucose of more than 200 mg/dL in a nonstressed, ambulatory subject supports the diagnosis of Diabetes Mellitus. No Panel InformationOrdered By: Natacha Hess on 11-19-2024 Estimated GFR (CKD-EPI) > 60.0 mL/Min [facility] Pharm[facility] Creatinine Clearance (Chem 77.07 [facility] Ovalocytes [Presence] in Blo od by Light microscopyOrdered By: Natacha Hess on 11-19-2024 Ovalocytes LM Ql (Bld) Ovalocyte detection [facility] Poikilocytosis [Presence] in Blood by Light microscopyOrdered By: Natacha Hess on 11-19-2024 Poikilocytosis LM Ql (Bld) Poikilocytosis [Presence] in Blood by Light microscopy [facility] Polychromasia [Presence] in Blood by Light microscopyOrdered By: Natacha Hess on 11-19-2024 Polychromasia LM Ql (Bld) Polychromasia [Presence] in Blood by Light microscopy [facility] Potassium [Moles/volume] in Serum or PlasmaOrdered By: Natacha Hess on 11-19-2024 Potassium [Moles/Vol] Potassium [Moles/volume] in Serum or Plasma 3.5-5.1 [facility] Protein [Mass/volume] in Ser um or PlasmaOrdered By: Natacha Hess on 11-19-2024 Protein [Mass/Vol] Protein [Mass/volume] in Serum or Plasma 6.4-8.9 [facility] SCAN AND CBCon 11-19-2024 Basophils (Bld) [#/Vol] 0.1 10*3/uL 0.0 - 0.2 10*3/uL [facility] Basophils/100 WBC Manual cnt (Syn fld) 0.8 % . [facility] Eosinophils (Bld) [#/Vol] 0 10*3/uL 0.0 - 0.45 10*3/uL [facility] Eosinophils/100 WBC Manual cnt (Syn fld) 0.3 % . [facility] Erythrocyte distribution width (RBC) [Ratio] 16.6 % High 12.0 - 14.8 % [facility] Hematocrit (Bld) [Volume fraction] 39.3 % 38.8 - 50.0 % [facility] Hemoglobin (Bld) [Mass/Vol] 13 g/dL 13.0 - 17.0 g/dL [facility] Interpretation and review of laboratory results Abnormal [facility] Lymphocytes (Bld) [#/Vol] 2 10*3/uL 1.00 - 4.8 10*3/uL [facility] Lymphocytes/100 WBC Manual cnt (Syn fld) 14.9 % . [facility] MCH (RBC) [Entitic mass] 28.2 pg 27. 5 - 35.2 pg [facility] MCHC (RBC) [Mass/Vol] 33.1 g/dL 32.5 - 35.6 g/dL [facility] MCV (RBC) [Entitic vol] 85.4 fL 83.5 - 101 f L [facility] Monocytes (Bld) [#/Vol] 2.1 10*3/uL High 0.0 - 0.8 10*3/uL [facility] Monocytes+Macrophages/10 0 WBC Manual cnt (Syn fld) 15.3 % . [facility] Neutrophils (Bld) [#/Vol] 9.3 10*3/uL High 1.8 - 7.7 10*3/uL [facility] Neutrophils/100 WBC Manual cnt (Syn fld) 68.7 % . [facility] NRBC 0.2 /100{WBC} 0 - 0.5 /100{WBC} [facility] Platelet mean volume (Bld) [Entitic vol] 7.1 fL 6.6 - 10.1 fL [facility] Platelets (Bld) [#/Vol] 512 10*3/uL High 150 - 450 10*3/uL [facility] RBC LM.HPF (Urine sed) [#/Area] 4.6 10*6/uL 3.90 - 5.60 10*6/uL [facility] WBC (Bld) [#/Vol] 13.6 10*3/uL High 4.1 - 10.5 10*3/uL [facility] WBC LM.HPF (Urine sed) [#/Area] 13.6 10*3/uL High 4.1 - 10.5 10*3/uL [facility] Scan and CBCon 11-19-2024 Anisocytosis Ql (Bld) Moderate Normal [facility] Comment on above: Performed By: #### U CREA, URTP #### [address] Basophils (Bld) [#/Vol] 0.1 10*3/uL Normal 0.0-0.2 [facility] Comment on above: Result Comment: PERF ORMED BY: [place] [address] PATHOLOGIST [employer] LION MURDOCK M.D. Performed By: #### U CREA, URTP #### [address] Basophils/100 WBC (Bld) 0.8 % Normal . T rachel [facility] Comment on above: Performed By: #### U CREA, URTP #### [address] Eosinophils (Bld) [#/Vol] 0.0 10*3/uL Normal 0.0-0.45 [facility] Comment on above: Performed By: #### U CREA, URTP #### [address] Eosinophils/100 WBC (Bld) 0.3 % Normal . [facility] Comment on above: Performed By: #### U CREA, URTP #### [address] Erythrocyte distribution width (RBC) [Ratio] 16.6 % High 12.0-14.8 [facility] Comment on above: Performed By: #### U CREA, URTP #### [address] Hematocrit (Bld) [Volume fraction] 39.3 % Normal 38.8-50.0 [facility] Comment on above: Performed By: #### U ADAM, URTP #### [address] Hemoglobin (Bld) [Mass/Vol] 13.0 g/dL Normal 13.0-17.0 [facility] Comment on above: Performed By: #### U ADAM, URTP #### [address] Lymphocytes (Bld) [#/Vol] 2.0 10*3/uL Normal 1.00-4.8 [facility] Comment on above: Performed By: #### U ADAM, URTP #### [address] Lymphocytes/100 WBC (Bld) 14.9 % Normal . [facility] Comment on above: Performed By: #### U ADAM, URTP #### [address] MCH (RBC) [Entitic mass] 28.2 pg Normal 27.5-35.2 [facility] Comment on above: Performed By: #### Erin MEDINA, URTP #### [address] MCV (RBC) [Entitic vol] 85.4 fL Normal 83.5-101 [facility] Comment on above: Performed By: #### U ADAM, URTP #### [address] Mean Corpuscular HGB Conc 33.1 g/dL Normal 32.5-35.6 [facility] Comment on above: Performed By: #### U ADAM, URTP #### [address] Monocytes (Bld) [#/Vol] 2.1 10*3/uL High 0.0-0.8 [facility] Comment on above: Performed By: #### U ADAM, URTP #### [address] Monocytes/100 WBC (Bld) 15.3 % Normal . [facility] Comment on above: Performed By: #### U CREA, URTP #### [address] Neutrophils (Bld) [#/Vol] 9.3 10*3/uL High 1.8-7.7 [facility] Comment on above: Performed By: #### U CREA, URTP #### [address] Neutrophils/100 WBC (Bld) 68.7 % Normal . [facility] Comment on above: Performed By: #### U CREA, URTP #### [address] NRBC% 0.2 /100{WBC} Normal 0-0.5 [facility] Comment on above: Performed By: #### U CREA, URTP #### [address] Ovalocytes Slight Normal [facility] Comment on above: Performed By: #### U CREA, URTP #### [address] Platelet Estimate Increased Normal Normal [facility] Comment on above: Performed By: #### U CREA, URTP #### [address] Platelet mean volume (Bld) [Entitic vol] 7.1 fL Normal 6.6-10.1 [facility] Comment on above: Performed By: #### U CREA, URTP #### [address] Platelet Morphology Normal Normal Normal [facility] Comment on above: Result Comment: PERF ORMED BY: [place] [address] PATHOLOGIST [employer] LION MURDOCK M.D. Performed By: #### U CREA, URTP #### [address] Platelets (Bld) [#/Vol] 512 10*3/uL High 150-450 [facility] Comment on above: Performed By: #### U CREA, URTP #### [address] Poikilocytosis Slight Normal [facility] Comment on above: Performed By: #### U CREA, URTP #### [address] Polychromasia Slight Normal [facility] Comment on above: Performed By: #### U CREA, URTP #### [address] RBC (Bld) [#/Vol] 4.60 10*6/uL Normal 3.90-5.60 [facility] Comment on above: Performed By: #### U CREA, URTP #### [address] Stomatocytes Slight Normal [facility] Comment on above: Performed By: #### U CREA, URTP #### [address] WBC (Bld) [#/Vol] 13.6 10*3/uL High 4.1-10.5 [facility] Comment on above: Performed By: #### U CREA, URTP #### [address] Serum or plasma albumin/glob ulin mass ratioOrdered By: Natacha Hess on 11-19-2024 Albumin/Globulin [Mass ratio] Serum or plasma albumin/globulin mass ratio [facility] Serum or plasma anion gap de terminationOrdered By: Natacha Hess on 11-19-2024 Anion gap [Moles/Vol] Serum or plasma anion gap determination High 6.0-15.0 [facility] Sodium [Moles/volume] in Ser um or PlasmaOrdered By: Natacha Hess on 11-19-2024 Sodium [Moles/Vol] Sodium [Moles/volume] in Serum or Plasma 136-145 [facility] Stomatocytes [Presence] in B lood by Light microscopyOrdered By: Natacha Hess on 11-19-2024 Stomatocytes LM Ql (Bld) Red blood cell stomatocyte detection [facility] Urea nitrogen [Mass/volume] in Serum or PlasmaOrdered By: Natacha Hess on 11-19-2024 Urea nitrogen [Mass/Vol] Urea nitrogen [Mass/volume] in Serum or Plasma 7-25 [facility] Anisocytosis LM Ql (Bld)Orde red By: Natacha Hess on 11-06-2024 Anisocytosis Ql (Bld) Anisocytosis [Presence] in Blood by Light microscopy [facility] Band form neutrophils/100 WB C Manual cnt (Bld)Ordered By: Natacha Hess on 11-06-2024 Band form neutrophils/100 WBC (Bld) Peripheral white blood cell differential % bands, microscopic exam High 0-5 [facility] Basophils Auto (Bld) [#/Vol] Ordered By: Natacha Hess on 11-06-2024 Basophils (Bld) [#/Vol] Automated basoph il count [facility] Basophils/100 WBC Auto (Bld) Ordered By: Natacha Hess on 11-06-2024 Basophils/100 WBC (Bld) Automated basophil % [facility] Comprehensive Metabolic Pane hanna 11-06-2024 Albumin [Mass/Vol] 3.8 g/dL Normal 3.5-5.7 [facility] Comment on above: Performed By: #### C MP #### [facility] [address] Albumin/Globulin [Mass ratio] 1.1 {ratio} Normal [facility] Comment on above: Performed By: #### C MP #### [facility] [address] [place] [id number] [place] ALP [Catalytic activity/Vol] 50 U/L Normal 34-104 [facility] Comment on above: Performed By: #### C MP #### [facility] [address] [place] [id number] [facility] ALT [Catalytic activity/Vol] 24 U/L Normal 7-52 [facility] Comment on above: Performed By: #### C MP #### [address] Anion gap [Moles/Vol] 11.9 mmol/L Normal 6.0-15.0 [facility] Comment on above: Performed By: #### C MP #### [address] AST [Catalytic activity/Vol] 21 U/L Normal 13-39 [facility] Comment on above: Performed By: #### C MP #### [address] Bilirubin [Mass/Vol] 0.6 mg/dL Normal 0.3-1.0 [facility] Comment on above: Performed By: #### C MP #### [address] Calcium [Mass/Vol] 9.4 mg/dL Normal 8.6-10.3 [facility] Comment on above: Performed By: #### C MP #### [address] Chloride [Moles/Vol] 102 mmol/L Normal 98-107 [facility] Comment on above: Performed By: #### C MP #### [address] CO2 [Moles/Vol] 27.8 mmol/L Normal 21.0-31.0 [facility] Comment on above: Performed By: #### C MP #### [address] Creatinine [Mass/Vol] 1.01 mg/dL Normal 0.70-1.30 [facility] Comment on above: Performed By: #### C MP #### [address] Creatinine Clr Calc Pharmacy 85.91 Normal [facility] Comment on above: Result Comment: PERF ORMED BY: [place] [address] PATHOLOGIST [employer] LION MURDOCK M.D. Performed By: #### C MP #### [address] GFR/1.73 sq M.predicted MDRD (S/P/Bld) [Vol rate/Area] mL/min/{1.73_m2} Normal [facility] Comment on above: Performed By: #### C MP #### [address] Globulin (S) [Mass/Vol] 3.4 g/dL Normal T [facility] Comment on above: Performed By: #### C MP #### [address] Glucose [Mass/Vol] 107 mg/dL High 70-100 [facility] Comment on above: Result Comment: [facility] Glucose Reference Range is dependent on time and content of last meal. Glucose of more than 200 mg/dL in a nonstressed, ambulatory subject supports the diagnosis of Diabetes Mellitus. ADA recommended reference range Performed By: #### C MP #### [address] Potassium [Moles/Vol] 3.7 mmol/L Normal 3.5-5.1 [facility] Comment on above: Performed By: #### C MP #### [address] Protein [Mass/Vol] 7.2 g/dL Normal 6.4-8.9 [facility] Comment on above: Performed By: #### C MP #### [address] Sodium [Moles/Vol] 138 mmol/L Normal 136-145 [facility] Comment on above: Performed By: #### C MP #### [address] Urea nitrogen [Mass/Vol] 17 mg/dL Normal 7-25 [facility] Comment on above: Performed By: #### C MP #### [place] [address] [place] Diff and CBCon 12-24-2024 Anisocytosis Ql (Bld) Slight Normal [facility] Comment on above: Performed By: #### C MP #### [address] Band form neutrophils/100 WBC (Bld) 15 % High 0-5 [facility] Comment on above: Performed By: #### C MP #### [address] Eosinophils/100 WBC (Bld) 2 % Normal 1-3 [facility] Comment on above: Performed By: #### C MP #### [address] Erythrocyte distribution width (RBC) [Ratio] 16.2 % High 12.0-14.8 [facility] Comment on above: Performed By: #### C MP #### [address] [address] Hematocrit (Bld) [Volume fraction] 36.3 % Low 38.8-50.0 [facility] Comment on above: Performed By: #### C MP #### [address] Hemoglobin (Bld) [Mass/Vol] 12.0 g/dL Low 13.0-17.0 [facility] Comment on above: Performed By: #### C MP #### [address] Lymphocytes/100 WBC (Bld) 31 % Normal 18-42 [facility] Comment on above: Performed By: #### C MP #### [address] MCH (RBC) [Entitic mass] 28.3 pg Normal 27.5-35.2 [facility] Comment on above: Performed By: #### C MP #### [address] MCV (RBC) [Entitic vol] 85.6 fL Normal 83.5-101 T [facility] Comment on above: Performed By: #### C MP #### [address] Mean Corpuscular HGB Conc 33.0 g/dL Normal 32.5-35.6 [facility] Comment on above: Performed By: #### C MP #### [address] Microcytosis Slight Normal The [facility] Comment on above: Performed By: #### C MP #### [address] Monocytes/100 WBC (Bld) 10 % Normal 2-11 [facility] Comment on above: Performed By: #### C MP #### [address] Platelet Estimate Normal Normal Normal The [facility] Comment on above: Performed By: #### C MP #### [address] Platelet mean volume (Bld) [Entitic vol] 7.7 fL Normal 6.6-10.1 [facility] Comment on above: Result Comment: PERF ORMED BY: [place] [address] PATHOLOGIST [employer] LION MURDOCK M.D. Performed By: #### C MP #### [address] Platelet Morphology Normal Normal Normal The [facility] Comment on above: Result Comment: PERF ORMED BY: [place] [address] PATHOLOGIST [employer] LION MURDOCK M.D. Performed By: #### C MP #### [place] [address] [place] Platelets (Bld) [#/Vol] 344 10*3/uL Normal 150-450 [facility] Comment on above: Performed By: #### C MP #### [place] [address] [place] RBC (Bld) [#/Vol] 4.24 10*6/uL Normal 3.90-5.60 [facility] Comment on above: Performed By: #### C MP #### [facility] [address] Segmented neutrophils/100 WBC (Bld) 43 % Low 50-70 [facility] Comment on above: Performed By: #### C MP #### [facility] [address] [place] [address] [place] WBC (Bld) [#/Vol] 3.5 10*3/uL Low 4.1-10.5 The [facility] Comment on above: Performed By: #### C MP #### [facility] [address] Eosinophils Auto (Bld) [#/Vo l]Ordered By: Natacha Hess on 11-06-2024 Eosinophils (Bld) [#/Vol] Automated eosinophil count [facility] Eosinophils/100 WBC Auto (Bl d)Ordered By: Natacha Hess on 11-06-2024 Eosinophils/100 WBC (Bld) Automated eosinophil % [facility] Eosinophils/100 WBC Manual c nt (Bld)Ordered By: Natacha Hess on 11-06-2024 Eosinophils/100 WBC (Bld) Eosinophils/100 leukocytes in Blood by Manual count 1-3 [facility] Erythrocyte distribution wid th Auto (RBC) [Ratio]Ordered By: Natacha Hess on 11-06-2024 Erythrocyte distribution width (RBC) [Ratio] Erythrocyte distribution width [Ratio] by Automated count High 12.0-14.8 [facility] Erythrocyte morphology findi ng [Identifier] in BloodOrdered By: Natacha Hess on 11-06-2024 RBC morphology finding Nom (Bld) RBC morphology [facility] Hematocrit Auto (Bld) [Volum e fraction]Ordered By: Natacha Hess on 11-06-2024 Hematocrit (Bld) [Volume fraction] Hematocrit [Volume Fraction] of Blood by Automated count Low 38.8-50.0 [facility] Hemoglobin [Mass/volume] in BloodOrdered By: Natacha Hess on 11-06-2024 Hemoglobin (Bld) [Mass/Vol] Hemoglobin [Mass/volume] in Blood Low 13.0-17.0 [facility] Leukocytes [#/volume] correc neetu for nucleated erythrocytes in Blood by Automated counOrdered By: Natacha Hess on 11-06-2024 WBC corrected for nucl RBC Auto (Bld) [#/Vol] Leukocytes [#/volume] corrected for nucleated erythrocytes in Blood by Automated coun Low 4.1-10.5 [facility] Lymphocytes Auto (Bld) [#/Vo l]Ordered By: Natacha Hess on 11-06-2024 Lymphocytes (Bld) [#/Vol] Lymphocytes [#/volume] in Blood by Automated count [facility] Lymphocytes/100 WBC Auto (Bl d)Ordered By: Natacha Hess on 11-06-2024 Lymphocytes/100 WBC (Bld) Lymphocytes/100 leukocytes in Blood by Automated count [facility] Lymphocytes/100 WBC Manual c nt (Bld)Ordered By: Natacha Hess on 11-06-2024 Lymphocytes/100 WBC (Bld) Lymphocytes/100 leukocytes in Blood by Manual count 18-42 [facility] MCH Auto (RBC) [Entitic mass ]Ordered By: Natacha Hess on 11-06-2024 MCH (RBC) [Entitic mass] MCH [Entitic ma ss] by Automated count 27.5-35.2 [facility] MCHC Auto (RBC) [Mass/Vol]Or dered By: Natacha Hess on 11-06-2024 MCHC (RBC) [Mass/Vol] MCHC [Mass/volume] by Automated count 32.5-35.6 [facility] MCV Auto (RBC) [Entitic vol] Ordered By: Natacha Hess on 11-06-2024 MCV (RBC) [Entitic vol] MCV [Entitic vol ume] by Automated count 83.5-101 [facility] Microcytes LM Ql (Bld)Ordere d By: Natacha Hess on 11-06-2024 Microcytes Ql (Bld) Microcytes [Presence] in Blood by Light microscopy [facility] Monocytes Auto (Bld) [#/Vol] Ordered By: Natacha Hess on 11-06-2024 Monocytes (Bld) [#/Vol] Automated blood monocyte count [facility] Monocytes/100 WBC Auto (Bld) Ordered By: Natacha Hess on 11-06-2024 Monocytes/100 WBC (Bld) Automated monocyte % [facility] Monocytes/100 WBC Manual cnt (Bld)Ordered By: Natacha Hess on 11-06-2024 Monocytes/100 WBC (Bld) Monocytes/100 leukocytes in Blood by Manual count 2-11 [facility] Neutrophils Auto (Bld) [#/Vo l]Ordered By: Natacha Hess on 11-06-2024 Neutrophils (Bld) [#/Vol] Neutrophils [#/volume] in Blood by Automated count [facility] Neutrophils/100 WBC Auto (Bl d)Ordered By: Ntaacha Hess on 11-06-2024 Neutrophils/100 WBC (Bld) Automated neutrophil % [facility] Nucleated erythrocytes [Pres ence] in Blood by Automated countOrdered By: Natacha Hess on 11-06-2024 Nucleated RBC Auto Ql (Bld) Nucleated erythrocytes [Presence] in Blood by Automated count [facility] Platelet adequacy [Presence] in Blood by Light microscopyOrdered By: Natacha Hess on 11-06-2024 Platelets LM Ql (Bld) Platelet adequacy [Presence] in Blood by Light microscopy Normal [facility] Platelet mean volume Auto (B ld) [Entitic vol]Ordered By: Natacha Hess on 11-06-2024 Platelet mean volume (Bld) [Entitic vol] Platelet mean volume [Entitic volume] in Blood by Automated count 6.6-10.1 [facility] Platelet morphology finding [Identifier] in BloodOrdered By: Natacha Hess on 11-06-2024 Platelet morphology finding Nom (Bld) Platelet morphology finding [Identifier] in Blood Normal [facility] Platelets Auto (Bld) [#/Vol] Ordered By: Natacha Hess on 11-06-2024 Platelets (Bld) [#/Vol] Platelets [#/vol ume] in Blood by Automated count 150-450 [facility] RBC Auto (Bld) [#/Vol]Ordere d By: Natacha Hess on 11-06-2024 RBC (Bld) [#/Vol] Erythrocytes [#/volume] in Blood by Automated count 3.90-5.60 [facility] Segmented neutrophils/100 WB C Manual cnt (Bld)Ordered By: Natacha Hess on 11-06-2024 Segmented neutrophils/100 WBC (Bld) Manual blood segmented neutrophils/100 leukocytes Low 50-70 [facility] WBC Auto (Bld) [#/Vol]Ordere d By: Natacha Hess on 11-06-2024 WBC (Bld) [#/Vol] Leukocytes [#/volume] in Blood by Automated count Low 4.1-10.5 [facility] Creatinine (U) [Mass/Vol]on 10-30-2024 Creatinine spec 2 (U) [Mass/Vol] 52 mg/dL [facility] Comment on above: No reference range e stablished Creatinine [Mass/volume] in UrineOrdered By: Natacha Hess on 10-30-2024 Creatinine (U) [Mass/Vol] Creatinine [Mass/volume] in Urine [facility] Comment on above: No reference range e stablished Creatinine, Urine (Random)on 10-30-2024 Creatinine, Urine (Random) 52.00 mg/dL Normal [facility] Comment on above: Result Comment: No r eference range established Performed By: #### U RTP, UCREA #### [facility] [address] [place] [address] No Panel Informationon 10-30 [facility] Protein [Mass/volume] in Uri neOrdered By: Natacha Hess on 10-30-2024 Protein (U) [Mass/Vol] Protein [Mass/volume] in Urine 0-9 [facility] TOTAL PROTEIN, URINEon 10-30 Protein (U) [Mass/Vol] 5 mg/dL 0 - 9 mg/dL [facility] Total Protein, Urineon 10-30 Protein (U) [Mass/Vol] 5 mg/dL Normal 0-9 [facility] Comment on above: Result Comment: PERF ORMED BY: [place] [address] PATHOLOGIST [employer] LION MURDOCK M.D. Performed By: #### U RTP, UCREA #### [facility] [address] [place] [address] Alanine aminotransferase [En zymatic activity/volume] in Serum or PlasmaOrdered By: Natacha Hess on 10-25-2024 ALT [Catalytic activity/Vol] Alanine aminotransferase [Enzymatic activity/volume] in Serum or Plasma 7-52 [facility] Albumin [Mass/volume] in Ser um or Plasma by Bromocresol green (BCG) dye binding methoOrdered By: Natacha Hess on 10-25-2024 Albumin BCG dye [Mass/Vol] Albumin [Mass/volume] in Serum or Plasma by Bromocresol green (BCG) dye binding metho 3.5-5.7 [facility] Alkaline phosphatase [Enzyma tic activity/volume] in Serum or PlasmaOrdered By: Natacha Hess on 10-25-2024 ALP [Catalytic activity/Vol] Alkaline phosphatase [Enzymatic activity/volume] in Serum or Plasma 34-104 [facility] Anisocytosis LM Ql (Bld)Orde red By: Natacha Hess on 10-25-2024 Anisocytosis Ql (Bld) Anisocytosis [Presence] in Blood by Light microscopy [facility] Aspartate aminotransferase [ Enzymatic activity/volume] in Serum or PlasmaOrdered By: Natacha Hess on 10-25-2024 AST [Catalytic activity/Vol] Aspartate aminotransferase [Enzymatic activity/volume] in Serum or Plasma 13-39 [facility] Band form neutrophils/100 WB C Manual cnt (Bld)Ordered By: Natacha Hess on 10-25-2024 Band form neutrophils/100 WBC (Bld) Peripheral white blood cell differential % bands, microscopic exam 0-5 [facility] Basophils Auto (Bld) [#/Vol] Ordered By: Natacha Hess on 10-25-2024 Basophils (Bld) [#/Vol] Automated basoph il count [facility] Basophils/100 WBC Auto (Bld) Ordered By: Natacha Hess on 10-25-2024 Basophils/100 WBC (Bld) Automated basophil % [facility] Bilirubin.total [Mass/volume ] in Serum or PlasmaOrdered By: Natacha Hess on 10-25-2024 Bilirubin [Mass/Vol] Bilirubin.total [Mass/volume] in Serum or Plasma 0.3-1.0 [facility] Calcium [Mass/volume] in Ser um or PlasmaOrdered By: Natacha Hess on 10-25-2024 Calcium [Mass/Vol] Calcium [Mass/volume] in Serum or Plasma 8.6-10.3 [facility] Carbon dioxide, total [Moles /volume] in Serum or PlasmaOrdered By: Natacha Hess on 10-25-2024 CO2 [Moles/Vol] Carbon dioxide, total [Moles/volume] in Serum or Plasma 21.0-31.0 [facility] Chloride [Moles/volume] in S harjit or PlasmaOrdered By: Natacha Hess on 10-25-2024 Chloride [Moles/Vol] Chloride [Moles/volume] in Serum or Plasma 98-107 [facility] Comprehensive Metabolic Pane hanna 10-25-2024 Albumin [Mass/Vol] 3.9 g/dL Normal 3.5-5.7 [facility] Comment on above: Performed By: #### U RTP, UCREA #### [address] Albumin/Globulin [Mass ratio] 1.0 {ratio} Normal [facility] Comment on above: Performed By: #### U RTP, UCREA #### [address] ALP [Catalytic activity/Vol] 81 U/L Normal 34-104 [facility] Comment on above: Performed By: #### U RTP, UCREA #### [address] ALT [Catalytic activity/Vol] 28 U/L Normal 7-52 [facility] Comment on above: Performed By: #### U RTP, UCREA #### [place] [id number] [facility] Anion gap [Moles/Vol] 12.7 mmol/L Normal 6.0-15.0 [facility] Comment on above: Performed By: #### U RTP, UCREA #### [address] AST [Catalytic activity/Vol] 20 U/L Normal 13-39 [facility] Comment on above: Performed By: #### U RTP, UCREA #### [place] [address] Bilirubin [Mass/Vol] 0.4 mg/dL Normal 0.3-1.0 [facility] Comment on above: Performed By: #### U RTP, UCREA #### [address] Calcium [Mass/Vol] 9.6 mg/dL Normal 8.6-10.3 [facility] Comment on above: Performed By: #### U RTP, UCREA #### [address] Chloride [Moles/Vol] 105 mmol/L Normal 98-107 [facility] Comment on above: Performed By: #### U RTP, UCREA #### [address] CO2 [Moles/Vol] 25.3 mmol/L Normal 21.0-31.0 [facility] Comment on above: Performed By: #### U RTP, UCREA #### [address] Creatinine [Mass/Vol] 1.14 mg/dL Normal 0.70-1.30 [facility] Comment on above: Performed By: #### U RTP, UCREA #### [place] [address] [place] Creatinine Clr Calc Pharmacy 74.95 Normal [facility] Comment on above: Result Comment: PERF ORMED BY: [place] [address] PATHOLOGIST [employer] LION MURDOCK M.D. Performed By: #### U RTP, UCREA #### [place] [address] [place] GFR/1.73 sq M.predicted MDRD (S/P/Bld) [Vol rate/Area] mL/min/{1.73_m2} Normal [facility] Comment on above: Performed By: #### U RTP, UCREA #### [address] [place] [address] [place] Globulin (S) [Mass/Vol] 3.8 g/dL Normal T [facility] Comment on above: Performed By: #### U RTP UCREA #### [address] Glucose [Mass/Vol] 104 mg/dL High 70-100 [facility] Comment on above: Result Comment: [facility] Glucose Reference Range is dependent on time and content of last meal. Glucose of more than 200 mg/dL in a nonstressed, ambulatory subject supports the diagnosis of Diabetes Mellitus. ADA recommended reference range Performed By: #### U RTP UCREA #### [address] Potassium [Moles/Vol] 4.0 mmol/L Normal 3.5-5.1 [facility] Comment on above: Performed By: #### U RTP UCREA #### [address] Protein [Mass/Vol] 7.7 g/dL Normal 6.4-8.9 [facility] Comment on above: Performed By: #### U RTP UCREA #### [address] Sodium [Moles/Vol] 139 mmol/L Normal 136-145 [facility] Comment on above: Performed By: #### U RTP UCREA #### [address] Urea nitrogen [Mass/Vol] 16 mg/dL Normal 7-25 [facility] Comment on above: Performed By: #### U RTP UCREA #### [address] Comprehensive metabolic pane hanna 10-25-2024 Albumin [Mass/Vol] 3.9 g/dL 3.5 - 5.7 g/dL [facility] Albumin/Globulin [Mass ratio] 1 {ratio} [facility] ALP [Catalytic activity/Vol] 81 U/L 34 - 104 U/L [facility] ALT [Catalytic activity/Vol] 28 U/L 7 - 52 U/L [facility] Anion gap [Moles/Vol] 12.7 mmol/L 6.0 - 15.0 meq/L [facility] AST [Catalytic activity/Vol] 20 U/L 13 - 39 U/L [facility] Bilirubin [Mass/Vol] 0.4 mg/dL 0.3 - 1 .0 mg/dL [facility] Calcium [Mass/Vol] 9.6 mg/dL 8.6 - 10. 3 mg/dL [facility] Chloride [Moles/Vol] 105 mmol/L 98 - 10 7 mmol/L [facility] CO2 [Moles/Vol] 25.3 mmol/L 21.0 - 31.0 mmol/L [facility] Creatinine (U) [Mass/Vol] 1.14 mg/dL 0.70 - 1.30 mg/dL [facility] CREATININE CLR CALC PHARMACY 74.95 [facility] ESTIMATED GFR mL/Min [facility] Globulin (S) [Mass/Vol] 3.8 g/dL N [facility] Glucose [Mass/Vol] 104 mg/dL High 70 - 100 mg/dL [facility] Comment on above: Random Glucose Refer ence Range is dependent on time and content of last meal. Glucose of more than 200 mg/dL in a nonstressed, ambulatory subject supports the diagnosis of Diabetes Mellitus. ADA recommended reference range Interpretation and review of laboratory results Abnormal [facility] Potassium [Moles/Vol] 4 mmol/L 3.5 - 5.1 mmol/L [facility] Protein [Mass/Vol] 7.7 g/dL 6.4 - 8.9 g/dL [facility] Sodium [Moles/Vol] 139 mmol/L 136 - 145 mmol/L [facility] Urea nitrogen [Mass/Vol] 16 mg/dL 7 - 25 mg/d L [facility] Creatinine [Mass/volume] in Serum or PlasmaOrdered By: Natacha Hess on 10-25-2024 Creatinine [Mass/Vol] Creatinine [Mass/volume] in Serum or Plasma 0.70-1.30 [facility] Diff and CBCon 10-25-2024 Anisocytosis Ql (Bld) Moderate Normal [facility] Comment on above: Performed By: #### U RTP, CECILIO #### [address] Band form neutrophils/100 WBC (Bld) 4 % Normal 0-5 [facility] Comment on above: Performed By: #### U RTP, UCREA #### [address] Erythrocyte distribution width (RBC) [Ratio] 15.6 % High 12.0-14.8 [facility] Comment on above: Performed By: #### U RTP, UCREA #### [address] Hematocrit (Bld) [Volume fraction] 40.0 % Normal 38.8-50.0 [facility] Comment on above: Performed By: #### U RTP, UCREA #### [address] Hemoglobin (Bld) [Mass/Vol] 13.2 g/dL Normal 13.0-17.0 [facility] Comment on above: Performed By: #### U RTP, UCREA #### [address] Lymphocytes/100 WBC (Bld) 14 % Low 18-42 [facility] Comment on above: Performed By: #### U RTP, UCREA #### [address] MCH (RBC) [Entitic mass] 27.9 pg Normal 27.5-35.2 [facility] Comment on above: Performed By: #### U RTP, UCREA #### [address] MCV (RBC) [Entitic vol] 84.5 fL Normal 83.5-101 T [facility] Comment on above: Performed By: #### U RTP, UCREA #### [address] Mean Corpuscular HGB Conc 33.0 g/dL Normal 32.5-35.6 [facility] Comment on above: Performed By: #### U RTP, UCREA #### [address] Microcytosis Moderate Normal [facility] Comment on above: Performed By: #### U RTP, UCREA #### [address] Monocytes/100 WBC (Bld) 6 % Normal 2-11 [facility] Comment on above: Performed By: #### U RTP, UCREA #### [address] Platelet Estimate Normal Normal Normal [facility] Comment on above: Performed By: #### U RTP, UCREA #### [address] Platelet mean volume (Bld) [Entitic vol] 7.4 fL Normal 6.6-10.1 [facility] Comment on above: Result Comment: PERF ORMED BY: [place] [address] PATHOLOGIST [employer] LION MURDOCK M.D. Performed By: #### U RTP, UCREA #### [address] Platelet Morphology Normal Normal Normal [facility] Comment on above: Result Comment: PERF ORMED BY: [place] [address] PATHOLOGIST [employer] LION MURDOCK M.D. Performed By: #### U RTP, UCREA #### [address] Platelets (Bld) [#/Vol] 394 10*3/uL Normal 150-450 [facility] Comment on above: Performed By: #### U RTP, UCREA #### [address] Polychromasia Slight Normal [facility] Comment on above: Performed By: #### U RTP, UCREA #### [address] RBC (Bld) [#/Vol] 4.73 10*6/uL Normal 3.90-5.60 [facility] Comment on above: Performed By: #### U RTP, UCREA #### [address] Segmented neutrophils/100 WBC (Bld) 76 % High 50-70 [facility] Comment on above: Performed By: #### U RTP, UCREA #### [address] WBC (Bld) [#/Vol] 17.8 10*3/uL High 4.1-10.5 [facility] Comment on above: Performed By: #### U RTP, UCREA #### [address] ECG 12 lead ECGon 10-25-2024 ECG 12 lead ECG [facility] [place] [address] [place] [address] Electrocardiograph Report Signed Patient: Bert Yeung MR#: [id number] 47 : 1950 Acct:[id number] Age/Sex: 73 / M ADM Date: 10/25/24 Loc: [place] Room: Type: [facility] Attending Dr: Wilmer Mckeon MD Ordering Provider: Jermaine Hahn MD Date of Service: 10/25/2411/06/1104 ECG/ECG 12 lead ECG: pre-op Copies to: Test Reason : Blood Pressure : */* mmHG Vent. Rate : 80 BPM Atrial Rate : 80 BPM P-R Int : 150 ms QRS Dur : 80 ms QT Int : 384 ms P-R-T Axes : 18 62 21 degrees QTcB Int : 442 ms Normal sinus rhythm Normal ECG When compared with ECG of 07-Oct-2021 14:41, ST no longer depressed in Inferior leads Confirmed by ROSALIND RIOS MD ([id number]) on 10/25/2024 3:17:47 PM Referred By: Electronically Signed By: ROSALIND RIOS MD Transcribed By: MUS Signed By Rosalind Rios MD 1 12/26/23 1517 Normal [facility] Eosinophils Auto (Bld) [#/Vo l]Ordered By: Natacha Hess on 10-25-2024 Eosinophils (Bld) [#/Vol] Automated eosinophil count [facility] Eosinophils/100 WBC Auto (Bl d)Ordered By: Natacha Hess on 10-25-2024 Eosinophils/100 WBC (Bld) Automated eosinophil % [facility] Erythrocyte distribution wid th Auto (RBC) [Ratio]Ordered By: Natacha Hess on 10-25-2024 Erythrocyte distribution width (RBC) [Ratio] Erythrocyte distribution width [Ratio] by Automated count High 12.0-14.8 [facility] Erythrocyte morphology findi ng [Identifier] in BloodOrdered By: Natacha Hess on 10-25-2024 RBC morphology finding Nom (Bld) RBC morphology [facility] Globulin Calc (S) [Mass/Vol] Ordered By: Natacha Hess on 10-25-2024 Globulin (S) [Mass/Vol] Serum globulin measurement by calculation (mass/volume) [facility] Glucose [Mass/volume] in Ser um or PlasmaOrdered By: Natacha Hess on 10-25-2024 Glucose [Mass/Vol] Glucose [Mass/volume] in Serum or Plasma High 70-100 [facility] Comment on above: ADA recommended refe rence rangeRandom Glucose Reference Range is dependent on time and content of last meal. Glucose of more than 200 mg/dL in a nonstressed, ambulatory subject supports the diagnosis of Diabetes Mellitus. Hematocrit Auto (Bld) [Volum e fraction]Ordered By: Natacha Hess on 10-25-2024 Hematocrit (Bld) [Volume fraction] Hematocrit [Volume Fraction] of Blood by Automated count 38.8-50.0 [facility] Hemoglobin [Mass/volume] in BloodOrdered By: Natacha Hess on 10-25-2024 Hemoglobin (Bld) [Mass/Vol] Hemoglobin [Mass/volume] in Blood 13.0-17.0 [facility] Leukocytes [#/volume] correc neetu for nucleated erythrocytes in Blood by Automated counOrdered By: Natacha Hess on 10-25-2024 WBC corrected for nucl RBC Auto (Bld) [#/Vol] Leukocytes [#/volume] corrected for nucleated erythrocytes in Blood by Automated coun High 4.1-10.5 [facility] Lymphocytes Auto (Bld) [#/Vo l]Ordered By: Natacha Hess on 10-25-2024 Lymphocytes (Bld) [#/Vol] Lymphocytes [#/volume] in Blood by Automated count [facility] Lymphocytes/100 WBC Auto (Bl d)Ordered By: Natacha Hess on 10-25-2024 Lymphocytes/100 WBC (Bld) Lymphocytes/100 leukocytes in Blood by Automated count [facility] Lymphocytes/100 WBC Manual c nt (Bld)Ordered By: Natacha Hess on 10-25-2024 Lymphocytes/100 WBC (Bld) Lymphocytes/100 leukocytes in Blood by Manual count Low 18-42 [facility] MCH Auto (RBC) [Entitic mass ]Ordered By: Natacha Hess on 10-25-2024 MCH (RBC) [Entitic mass] MCH [Entitic ma ss] by Automated count 27.5-35.2 [facility] MCHC Auto (RBC) [Mass/Vol]Or dered By: Natacha Hess on 10-25-2024 MCHC (RBC) [Mass/Vol] MCHC [Mass/volume] by Automated count 32.5-35.6 [facility] MCV Auto (RBC) [Entitic vol] Ordered By: Natacha Hess on 10-25-2024 MCV (RBC) [Entitic vol] MCV [Entitic vol ume] by Automated count 83.5-101 [facility] Microcytes LM Ql (Bld)Ordere d By: Natacha Hess on 10-25-2024 Microcytes Ql (Bld) Microcytes [Presence] in Blood by Light microscopy [facility] Monocytes Auto (Bld) [#/Vol] Ordered By: Natacha Hess on 10-25-2024 Monocytes (Bld) [#/Vol] Automated blood monocyte count [facility] Monocytes/100 WBC Auto (Bld) Ordered By: Natacha Hess on 10-25-2024 Monocytes/100 WBC (Bld) Automated monocyte % [facility] Monocytes/100 WBC Manual cnt (Bld)Ordered By: Natacha Hess on 10-25-2024 Monocytes/100 WBC (Bld) Monocytes/100 leukocytes in Blood by Manual count 2-11 [facility] Neutrophils Auto (Bld) [#/Vo l]Ordered By: Natacha Hess on 10-25-2024 Neutrophils (Bld) [#/Vol] Neutrophils [#/volume] in Blood by Automated count [facility] Neutrophils/100 WBC Auto (Bl d)Ordered By: Natacha Hess on 10-25-2024 Neutrophils/100 WBC (Bld) Automated neutrophil % [facility] No Panel InformationOrdered By: Natacha Hess on 10-25-2024 Estimated GFR (CKD-EPI) > 60.0 mL/Min [facility] Creatinine Clearance (Chem 74.95 [facility] Nucleated erythrocytes [Pres ence] in Blood by Automated countOrdered By: Natacha Hess on 10-25-2024 Nucleated RBC Auto Ql (Bld) Nucleated erythrocytes [Presence] in Blood by Automated count [facility] Platelet adequacy [Presence] in Blood by Light microscopyOrdered By: Natacha Hess on 10-25-2024 Platelets LM Ql (Bld) Platelet adequacy [Presence] in Blood by Light microscopy Normal [facility] Platelet mean volume Auto (B ld) [Entitic vol]Ordered By: Natacha Hess on 10-25-2024 Platelet mean volume (Bld) [Entitic vol] Platelet mean volume [Entitic volume] in Blood by Automated count 6.6-10.1 [facility] Platelet morphology finding [Identifier] in BloodOrdered By: Natacha Hess on 10-25-2024 Platelet morphology finding Nom (Bld) Platelet morphology finding [Identifier] in Blood Normal [facility] Platelets Auto (Bld) [#/Vol] Ordered By: Natacha Hess on 10-25-2024 Platelets (Bld) [#/Vol] Platelets [#/vol ume] in Blood by Automated count 150-450 [facility] Polychromasia [Presence] in Blood by Light microscopyOrdered By: Natacha Hess on 10-25-2024 Polychromasia LM Ql (Bld) Polychromasia [Presence] in Blood by Light microscopy [facility] Potassium [Moles/volume] in Serum or PlasmaOrdered By: Natacha Hess on 10-25-2024 Potassium [Moles/Vol] Potassium [Moles/volume] in Serum or Plasma 3.5-5.1 [facility] Protein [Mass/volume] in Ser um or PlasmaOrdered By: Natacha Hess on 10-25-2024 Protein [Mass/Vol] Protein [Mass/volume] in Serum or Plasma 6.4-8.9 [facility] RBC Auto (Bld) [#/Vol]Ordere d By: Natacha Hess on 10-25-2024 RBC (Bld) [#/Vol] Erythrocytes [#/volume] in Blood by Automated count 3.90-5.60 [facility] Segmented neutrophils/100 WB C Manual cnt (Bld)Ordered By: Natacha Louisse on 10-25-2024 Segmented neutrophils/100 WBC (Bld) Manual blood segmented neutrophils/100 leukocytes High 50-70 [facility] Serum or plasma albumin/glob ulin mass ratioOrdered By: Natacha Hess on 10-25-2024 Albumin/Globulin [Mass ratio] Serum or plasma albumin/globulin mass ratio [facility] Serum or plasma anion gap de terminationOrdered By: Natacha Hess on 10-25-2024 Anion gap [Moles/Vol] Serum or plasma anion gap determination 6.0-15.0 [facility] Sodium [Moles/volume] in Ser um or PlasmaOrdered By: Natacha Hess on 10-25-2024 Sodium [Moles/Vol] Sodium [Moles/volume] in Serum or Plasma 136-145 [facility] Urea nitrogen [Mass/volume] in Serum or PlasmaOrdered By: Natacha Hess on 10-25-2024 Urea nitrogen [Mass/Vol] Urea nitrogen [Mass/volume] in Serum or Plasma 7-25 [facility] WBC Auto (Bld) [#/Vol]Ordere d By: Natacha Hess on 10-25-2024 WBC (Bld) [#/Vol] Leukocytes [#/volume] in Blood by Automated count High 4.1-10.5 [facility] XR chest 1V portableon 10-25 XR chest 1V portable [address] [address] XRay Report Signed Patient: Bert Yeung MR#: [id number] 47 : 1950 Acct:[id number] Age/Sex: 73 / M ADM Date: 10/25/24 Loc: [place] Room: Type: [facility] Attending Dr: Wilmer Mckeon MD Copies to: Wilmer Mckeon MD Ordering Provider: Wilmer Mckeon MD Date of Service: 10/25/24 XR/XR chest 1V portable: POST PORT XR chest 1V portable 10/25/2024 2:46 PM SIGNS AND SYMPTOMS: Status post Kypgxu-k-Keea insertion PROTOCOL: Frontal radiograph the chest COMPARISON: 03/11/2022 FINDINGS: The trachea is midline. There is a left-sided Bsecpl-o-Gjyt. The tip is in the expected location [...] 1V portable IMPRESSION: There is a left-sided Fmqabf-e-Gzll. The tip is in the expected location of the superior vena cava. There is no pneumothorax. Masslike opacities are redemonstrated in the right perihilar region and right mid chest with scarring/tenting of the right hemidiaphragm. Linear airspace opacity is noted in the left perihilar region similar to the prior exam. Impression dictated by: Carlos Cavanaugh M.D.10/25/2024 3:23 PM Dictation Location: [facility]-- Transcribed By: [facility] 10/25/24 1523 Dictated By: Carlos Cavanaugh II, MD 10/25/24 1516 Signed By: 10/25/24 1523 Normal [facility] Blood toxic granulation dete ction by light microscopyOrdered By: Natacha Hess on 10-22-2024 Toxic granules LM Ql (Bld) Blood toxic granulation detection by light microscopy [facility] Comprehensive Metabolic Pane hanna 10-22-2024 Albumin [Mass/Vol] 3.8 g/dL Normal 3.5-5.7 [facility] Comment on above: Performed By: #### U CREA, URTP #### [address] Albumin/Globulin [Mass ratio] 1.2 {ratio} Normal [facility] Comment on above: Performed By: #### U CREA, URTP #### [address] ALP [Catalytic activity/Vol] 103 U/L Normal 34-104 [facility] Comment on above: Performed By: #### U CREA, URTP #### [address] ALT [Catalytic activity/Vol] 41 U/L Normal 7-52 [facility] Comment on above: Performed By: #### U CREA, URTP #### [address] Anion gap [Moles/Vol] 10.9 mmol/L Normal 6.0-15.0 [facility] Comment on above: Performed By: #### U CREA, URTP #### [address] AST [Catalytic activity/Vol] 27 U/L Normal 13-39 [facility] Comment on above: Performed By: #### U CREA, URTP #### [address] Bilirubin [Mass/Vol] 0.3 mg/dL Normal 0.3-1.0 [facility] Comment on above: Performed By: #### U CREA, URTP #### [address] Calcium [Mass/Vol] 9.5 mg/dL Normal 8.6-10.3 [facility] Comment on above: Performed By: #### U CREA, URTP #### [place] [address] [place] Chloride [Moles/Vol] 102 mmol/L Normal 98-107 [facility] Comment on above: Performed By: #### U CREA, URTP #### [facility] [address] [place] [address] [place] CO2 [Moles/Vol] 30.2 mmol/L Normal 21.0-31.0 [facility] Comment on above: Performed By: #### U CREA, URTP #### [facility] [address] Creatinine [Mass/Vol] 1.17 mg/dL Normal 0.70-1.30 [facility] Comment on above: Performed By: #### U CREA, URTP #### [facility] [address] [place] [address] [place] Creatinine Clr Calc Pharmacy 73.92 Normal [facility] Comment on above: Result Comment: PERF ORMED BY: [place] [address] PATHOLOGIST [employer] LION MURDOCK M.D. Performed By: #### U CREA, URTP #### [facility] [address] GFR/1.73 sq M.predicted MDRD (S/P/Bld) [Vol rate/Area] mL/min/{1.73_m2} Normal [facility] Comment on above: Performed By: #### U CREA, URTP #### [facility] [address] [place] [address] [place] Globulin (S) [Mass/Vol] 3.2 g/dL Normal [facility] Comment on above: Performed By: #### U CREA, URTP #### [facility] [address] [place] [address] [place] Glucose [Mass/Vol] 85 mg/dL Normal 70-100 [facility] Comment on above: Result Comment: [facility] Glucose Reference Range is dependent on time and content of last meal. Glucose of more than 200 mg/dL in a nonstressed, ambulatory subject supports the diagnosis of Diabetes Mellitus. ADA recommended reference range Performed By: #### U CREA, URTP #### [facility] [address] Potassium [Moles/Vol] 4.1 mmol/L Normal 3.5-5.1 [facility] Comment on above: Performed By: #### U CREEmily, URTP #### [facility] [address] [place] [id number] [facility] Protein [Mass/Vol] 7.0 g/dL Normal 6.4-8.9 [facility] Comment on above: Performed By: #### U CREA, URTP #### [facility] [address] Sodium [Moles/Vol] 139 mmol/L Normal 136-145 [facility] Comment on above: Performed By: #### U CREA, URTP #### [facility] [address] Urea nitrogen [Mass/Vol] 14 mg/dL Normal 7-25 [facility] Comment on above: Performed By: #### U CREA, URTP #### [facility] [address] [place] [id number] [facility] Comprehensive metabolic pane hanna 10-22-2024 Albumin [Mass/Vol] 3.8 g/dL 3.5 - 5.7 g/dL [facility] Albumin/Globulin [Mass ratio] 1.2 {ratio} [facility] ALP [Catalytic activity/Vol] 103 U/L 34 - 104 U/L [facility] ALT [Catalytic activity/Vol] 41 U/L 7 - 52 U/L [facility] Anion gap [Moles/Vol] 10.9 mmol/L 6.0 - 15.0 meq/L [facility] AST [Catalytic activity/Vol] 27 U/L 13 - 39 U/L [facility] Bilirubin [Mass/Vol] 0.3 mg/dL 0.3 - 1 .0 mg/dL [facility] Calcium [Mass/Vol] 9.5 mg/dL 8.6 - 10. 3 mg/dL [facility] Chloride [Moles/Vol] 102 mmol/L 98 - 10 7 mmol/L [facility] CO2 [Moles/Vol] 30.2 mmol/L 21.0 - 31.0 mmol/L [facility] Creatinine (U) [Mass/Vol] 1.17 mg/dL 0.70 - 1.30 mg/dL [facility] CREATININE CLR CALC PHARMACY 73.92 [facility] ESTIMATED GFR mL/Min [facility] Globulin (S) [Mass/Vol] 3.2 g/dL N [facility] Glucose [Mass/Vol] 85 mg/dL 70 - 100 mg/dL [facility] Comment on above: Random Glucose Refer ence Range is dependent on time and content of last meal. Glucose of more than 200 mg/dL in a nonstressed, ambulatory subject supports the diagnosis of Diabetes Mellitus. ADA recommended reference range Potassium [Moles/Vol] 4.1 mmol/L 3.5 - 5.1 mmol/L [facility] Protein [Mass/Vol] 7 g/dL 6.4 - 8.9 g/dL [facility] Sodium [Moles/Vol] 139 mmol/L 136 - 145 mmol/L [facility] Urea nitrogen [Mass/Vol] 14 mg/dL 7 - 25 mg/d L [facility] Polychromasia [Presence] in Blood by Light microscopyOrdered By: Natacha Hess on 10-22-2024 Polychromasia LM Ql (Bld) Polychromasia [Presence] in Blood by Light microscopy [facility] Scan and CBCon 10-22-2024 Anisocytosis Ql (Bld) Slight Normal [facility] Comment on above: Performed By: #### U ADAM URTP #### [facility] [address] [place] [address] [place] Basophils (Bld) [#/Vol] 0.0 10*3/uL Normal 0.0-0.2 [facility] Comment on above: Performed By: #### U ADAM URTP #### [facility] [address] [place] [address] [place] Basophils/100 WBC (Bld) 0.2 % Normal . T rachel [facility] Comment on above: Performed By: #### U ADAM, URTP #### [facility] [address] [place] [id number] [place] Eosinophils (Bld) [#/Vol] 0.0 10*3/uL Normal 0.0-0.45 [facility] Comment on above: Performed By: #### U CREA, URTP #### [facility] [address] [place] [address] [place] Eosinophils/100 WBC (Bld) 0.2 % Normal . [facility] Comment on above: Performed By: #### U CREA, URTP #### [address] Erythrocyte distribution width (RBC) [Ratio] 15.0 % High 12.0-14.8 [facility] Comment on above: Performed By: #### U CREA, URTP #### [address] Hematocrit (Bld) [Volume fraction] 39.3 % Normal 38.8-50.0 [facility] Comment on above: Performed By: #### U CREA, URTP #### [address] Hemoglobin (Bld) [Mass/Vol] 13.0 g/dL Normal 13.0-17.0 [facility] Comment on above: Performed By: #### U CREA, URTP #### [address] Lymphocytes (Bld) [#/Vol] 3.0 10*3/uL Normal 1.00-4.8 [facility] Comment on above: Performed By: #### U CREA, URTP #### [place] [address] [place] Lymphocytes/100 WBC (Bld) 10.8 % Normal . [facility] Comment on above: Performed By: #### U CREA, URTP #### [address] MCH (RBC) [Entitic mass] 28.1 pg Normal 27.5-35.2 [facility] Comment on above: Performed By: #### U CREA, URTP #### [address] MCV (RBC) [Entitic vol] 84.8 fL Normal 83.5-101 [facility] Comment on above: Performed By: #### U CREA, URTP #### [facility] [address] Mean Corpuscular HGB Conc 33.2 g/dL Normal 32.5-35.6 [facility] Comment on above: Performed By: #### U CREA, URTP #### [facility] [address] Microcytosis Slight Normal [facility] Comment on above: Performed By: #### U CREA, URTP #### [facility] [address] [place] [address] [place] Monocytes (Bld) [#/Vol] 2.1 10*3/uL High 0.0-0.8 [facility] Comment on above: Performed By: #### U CREA, URTP #### [facility] [address] [place] [address] [place] Monocytes/100 WBC (Bld) 7.6 % Normal . [facility] Comment on above: Performed By: #### U CREA, URTP #### [facility] [address] [place] [address] [place] Neutrophils (Bld) [#/Vol] 22.5 10*3/uL High 1.8-7.7 [facility] Comment on above: Performed By: #### U CREA, URTP #### [facility] [address] [place] [address] [place] Neutrophils/100 WBC (Bld) 81.2 % Normal . [facility] Comment on above: Performed By: #### U CREA, URTP #### [facility] [address] [place] [address] [place] NRBC% 0.1 /100{WBC} Normal 0-0.5 [facility] Comment on above: Performed By: #### U CREA, URTP #### [facility] [address] Platelet Estimate Normal Normal Normal [facility] Comment on above: Performed By: #### U CREA, URTP #### [address] Platelet mean volume (Bld) [Entitic vol] 8.4 fL Normal 6.6-10.1 [facility] Comment on above: Performed By: #### U CREA, URTP #### [address] Platelet Morphology Normal Normal Normal [facility] Comment on above: Result Comment: PERF ORMED BY: [place] [address] PATHOLOGIST [employer] LION MURDOCK M.D. Performed By: #### U CREA, URTP #### [address] Platelets (Bld) [#/Vol] 289 10*3/uL Normal 150-450 [facility] Comment on above: Performed By: #### U CREA, URTP #### [address] Polychromasia Slight Normal [facility] Comment on above: Performed By: #### U CREA, URTP #### [address] RBC (Bld) [#/Vol] 4.63 10*6/uL Normal 3.90-5.60 [facility] Comment on above: Performed By: #### U CREA, URTP #### [address] Toxic Granulation Slight Normal [facility] Comment on above: Performed By: #### U CREA, URTP #### [address] WBC (Bld) [#/Vol] 27.7 10*3/uL High 4.1-10.5 [facility] Comment on above: Performed By: #### U CREA, URTP #### [address] Basophils/100 WBC Manual cnt (Bld)Ordered By: Natacha Hess on 10-16-2024 Basophils/100 WBC (Bld) Basophils/100 leukocytes in Blood by Manual count 0-2 [facility] Comprehensive Metabolic Pane hanna 10-16-2024 Albumin [Mass/Vol] 3.8 g/dL Normal 3.5-5.7 [facility] Comment on above: Performed By: #### U CREA, URTP #### [facility] [address] Albumin/Globulin [Mass ratio] 1.3 {ratio} Normal [facility] Comment on above: Performed By: #### U CREA, URTP #### [facility] [address] [place] [address] [place] ALP [Catalytic activity/Vol] 103 U/L Normal 34-104 [facility] Comment on above: Performed By: #### U CREA, URTP #### [address] ALT [Catalytic activity/Vol] 50 U/L Normal 7-52 [facility] Comment on above: Performed By: #### U CREA, URTP #### [facility] [address] [place] [address] [place] Anion gap [Moles/Vol] 10.2 mmol/L Normal 6.0-15.0 [facility] Comment on above: Performed By: #### U CREA, URTP #### [place] [address] [place] AST [Catalytic activity/Vol] 47 U/L High 13-39 [facility] Comment on above: Performed By: #### U CREA, URTP #### [facility] [address] [place] [id number] [place] Bilirubin [Mass/Vol] 0.4 mg/dL Normal 0.3-1.0 [facility] Comment on above: Performed By: #### U CREA, URTP #### [facility] [address] [place] [id number] [place] Calcium [Mass/Vol] 9.6 mg/dL Normal 8.6-10.3 [facility] Comment on above: Performed By: #### U CREA, URTP #### [address] Chloride [Moles/Vol] 97 mmol/L Low 98-107 [facility] Comment on above: Performed By: #### U CREA, URTP #### [address] CO2 [Moles/Vol] 34.5 mmol/L High 21.0-31.0 [facility] Comment on above: Performed By: #### U CREA, URTP #### [address] Creatinine [Mass/Vol] 1.13 mg/dL Normal 0.70-1.30 [facility] Comment on above: Performed By: #### U CREA, URTP #### [address] Creatinine Clr Calc Pharmacy 77.18 Normal [facility] Comment on above: Result Comment: PERF ORMED BY: [place] [address] PATHOLOGIST [employer] LION MURDOCK M.D. Performed By: #### U CREEmily, URTP #### [address] GFR/1.73 sq M.predicted MDRD (S/P/Bld) [Vol rate/Area] mL/min/{1.73_m2} Normal [facility] Comment on above: Performed By: #### U CREA, URTP #### [address] Globulin (S) [Mass/Vol] 3.0 g/dL Normal T [facility] Comment on above: Performed By: #### U CREA, URTP #### [address] Glucose [Mass/Vol] 100 mg/dL Normal 70-100 [facility] Comment on above: Result Comment: [facility] Glucose Reference Range is dependent on time and content of last meal. Glucose of more than 200 mg/dL in a nonstressed, ambulatory subject supports the diagnosis of Diabetes Mellitus. ADA recommended reference range Performed By: #### U ADAM, URTP #### [facility] [address] Potassium [Moles/Vol] 3.7 mmol/L Normal 3.5-5.1 [facility] Comment on above: Performed By: #### U ADAM, URTP #### [facility] [address] Protein [Mass/Vol] 6.8 g/dL Normal 6.4-8.9 [facility] Comment on above: Performed By: #### U ADAM, URTP #### [facility] [address] Sodium [Moles/Vol] 138 mmol/L Normal 136-145 [facility] Comment on above: Performed By: #### U ADAM, URTP #### [facility] [address] Urea nitrogen [Mass/Vol] 14 mg/dL Normal 7-25 [facility] Comment on above: Performed By: #### U ADAM, URTP #### [facility] [address] Comprehensive metabolic pane hanna 10-16-2024 Albumin [Mass/Vol] 3.8 g/dL 3.5 - 5.7 g/dL [facility] Albumin/Globulin [Mass ratio] 1.3 {ratio} [facility] ALP [Catalytic activity/Vol] 103 U/L 34 - 104 U/L [facility] ALT [Catalytic activity/Vol] 50 U/L 7 - 52 U/L [facility] Anion gap [Moles/Vol] 10.2 mmol/L 6.0 - 15.0 meq/L [facility] AST [Catalytic activity/Vol] 47 U/L High 13 - 39 U/L [facility] Bilirubin [Mass/Vol] 0.4 mg/dL 0.3 - 1 .0 mg/dL [facility] Calcium [Mass/Vol] 9.6 mg/dL 8.6 - 10. 3 mg/dL [facility] Chloride [Moles/Vol] 97 mmol/L Low 98 - 10 7 mmol/L [facility] CO2 [Moles/Vol] 34.5 mmol/L High 21.0 - 31.0 mmol/L [facility] Creatinine (U) [Mass/Vol] 1.13 mg/dL 0.70 - 1.30 mg/dL [facility] CREATININE CLR CALC PHARMACY 77.18 [facility] ESTIMATED GFR mL/Min [facility] Globulin (S) [Mass/Vol] 3 g/dL N [facility] Glucose [Mass/Vol] 100 mg/dL 70 - 100 mg/dL [facility] Comment on above: Random Glucose Refer ence Range is dependent on time and content of last meal. Glucose of more than 200 mg/dL in a nonstressed, ambulatory subject supports the diagnosis of Diabetes Mellitus. ADA recommended reference range Interpretation and review of laboratory results Abnormal [facility] Potassium [Moles/Vol] 3.7 mmol/L 3.5 - 5.1 mmol/L [facility] Protein [Mass/Vol] 6.8 g/dL 6.4 - 8.9 g/dL [facility] Sodium [Moles/Vol] 138 mmol/L 136 - 145 mmol/L [facility] Urea nitrogen [Mass/Vol] 14 mg/dL 7 - 25 mg/d L Critical access hospital Diff and CBCon 10-16-2024 Band form neutrophils/100 WBC (Bld) 5 % Normal 0-5 [facility] Comment on above: Performed By: #### U CREA, URTP #### [facility] [address] [place] [address] [place] Basophils/100 WBC (Bld) 0 % Normal 0-2 [facility] Comment on above: Performed By: #### U CREA, URTP #### [facility] [address] [place] [id number] [place] Eosinophils/100 WBC (Bld) 1 % Normal 1-3 [facility] Comment on above: Performed By: #### U CREA, URTP #### [facility] [address] Erythrocyte distribution width (RBC) [Ratio] 14.8 % Normal 12.0-14.8 The [facility] Comment on above: Performed By: #### U CREA, URTP #### [address] Hematocrit (Bld) [Volume fraction] 40.8 % Normal 38.8-50.0 [facility] Comment on above: Performed By: #### U CREA, URTP #### [address] Hemoglobin (Bld) [Mass/Vol] 13.6 g/dL Normal 13.0-17.0 [facility] Comment on above: Performed By: #### U CREA, URTP #### [address] Lymphocytes/100 WBC (Bld) 10 % Low 18-42 [facility] Comment on above: Performed By: #### U CREA, URTP #### [address] MCH (RBC) [Entitic mass] 28.2 pg Normal 27.5-35.2 [facility] Comment on above: Performed By: #### U CREA, URTP #### [place] [address] [place] MCV (RBC) [Entitic vol] 84.9 fL Normal 83.5-101 [facility] Comment on above: Performed By: #### U CREA, URTP #### [address] Mean Corpuscular HGB Conc 33.3 g/dL Normal 32.5-35.6 [facility] Comment on above: Performed By: #### U CREA, URTP #### [place] [address] [place] Metamyelocytes 1 % High 0-0 The [facility] Comment on above: Performed By: #### U CREA, URTP #### [place] [address] [place] Monocytes/100 WBC (Bld) 11 % Normal 2-11 [facility] Comment on above: Performed By: #### U CREA, URTP #### [address] Myelocytes 2 % High 0-0 [facility] Comment on above: Performed By: #### U CREEmily, URTP #### [address] Nucleated Red Blood Cell 1 /100{WBC} High 0-0 [facility] Comment on above: Performed By: #### U CREA, URTP #### [address] Platelet Estimate Normal Normal Normal The [facility] Comment on above: Performed By: #### U CREEmily, URTP #### [address] Platelet mean volume (Bld) [Entitic vol] 8.0 fL Normal 6.6-10.1 The [facility] Comment on above: Result Comment: PERF ORMED BY: [place] [address] PATHOLOGIST [employer] LION MURDOCK M.D. Performed By: #### U CREEmily, URTP #### [address] Platelet Morphology Normal Normal Normal The [facility] Comment on above: Result Comment: PERF ORMED BY: [place] [address] PATHOLOGIST [employer] LION MURDOCK M.D. Performed By: #### U CREEmily, URTP #### [address] Platelets (Bld) [#/Vol] 384 10*3/uL Normal 150-450 [facility] Comment on above: Performed By: #### U CREA, URTP #### [place] [address] [place] Promyelocytes 1 % High 0-0 The [facility] Comment on above: Performed By: #### U CREA, URTP #### [address] [address] [place] RBC (Bld) [#/Vol] 4.80 10*6/uL Normal 3.90-5.60 The [facility] Comment on above: Performed By: #### U CREA, URTP #### [facility] [address] RBC morphology finding Nom (Bld) Normal Normal Normal [facility] Comment on above: Performed By: #### U CREA, URTP #### [facility] [address] Segmented neutrophils/100 WBC (Bld) 69 % Normal 50-70 [facility] Comment on above: Performed By: #### U CREA, URTP #### [facility] [address] WBC (Bld) [#/Vol] 15.4 10*3/uL High 4.1-10.5 The [facility] Comment on above: Performed By: #### U CREA, URTP #### [facility] [address] [place] [address] Metamyelocytes/100 WBC Manua l cnt (Bld)Ordered By: Natacha Hess on 10-16-2024 Metamyelocytes/100 WBC (Bld) Metamyelocytes/100 leukocytes in Blood by Manual count [facility] 00 [facility] Myelocytes/100 WBC Manual cn t (Bld)Ordered By: Natacha Hess on 10-16-2024 Myelocytes/100 WBC (Bld) Myelocytes/100 leukocytes in Blood by Manual count High 00 [facility] Nucleated RBC/100 WBC Manual cnt (Bld) [Ratio]Ordered By: Natacha Hess on 10-16-2024 Nucleated RBC/100 WBC (Bld) [Ratio] Nucleated erythrocytes/100 leukocytes [Ratio] in Blood by Manual count High 00 [facility] Promyelocytes/100 WBC Manual cnt (Bld)Ordered By: Natacha Hess on 10-16-2024 Promyelocytes/100 WBC (Bld) Promyelocytes/100 leukocytes in Blood by Manual count [facility] 00 [facility] Creatinine (U) [Mass/Vol]on 10-09-2024 Creatinine spec 2 (U) [Mass/Vol] 74 mg/dL [facility] Comment on above: No reference range e stablished Creatinine, Urine (Random)on 10-09-2024 Creatinine, Urine (Random) 74.00 mg/dL Normal [facility] Comment on above: Result Comment: No r eference range established Performed By: #### U ADAM, URTP #### [facility] [address] No Panel Informationon 10-09 [facility] TOTAL PROTEIN, URINEon 10-09 Interpretation and review of laboratory results Abnormal [facility] Protein (U) [Mass/Vol] 11 mg/dL High 0 - 9 mg/dL [facility] Total Protein, Urineon 10-09 Protein (U) [Mass/Vol] 11 mg/dL High 0-9 Th e [facility] Comment on above: Result Comment: PERF ORMED BY: [facility] [address] [facility] [place] [address] PATHOLOGIST [employer] LION MURDOCK M.D. Performed By: #### U ADAM, URTP #### [facility] [address] CBC W Auto Differential pane l (Bld)on 10-08-2024 Basophils (Bld) [#/Vol] 0 10*3/uL 0.0 - 0.2 10*3/uL [facility] Basophils/100 WBC Manual cnt (Syn fld) 0.3 % . [facility] Eosinophils (Bld) [#/Vol] 0.2 10*3/uL 0.0 - 0.45 10*3/uL [facility] Eosinophils/100 WBC Manual cnt (Syn fld) 1.7 % . [facility] Erythrocyte distribution width (RBC) [Ratio] 14.7 % 12.0 - 14.8 % [facility] Hematocrit (Bld) [Volume fraction] 40.5 % 38.8 - 50.0 % [facility] Hemoglobin (Bld) [Mass/Vol] 13.6 g/dL 13.0 - 17.0 g/dL [facility] Interpretation and review of laboratory results Abnormal [facility] Lymphocytes (Bld) [#/Vol] 1.9 10*3/uL 1.00 - 4.8 10*3/uL [facility] Lymphocytes/100 WBC Manual cnt (Syn fld) 17.4 % . [facility] MCH (RBC) [Entitic mass] 28.7 pg 27. 5 - 35.2 pg [facility] MCHC (RBC) [Mass/Vol] 33.7 g/dL 32.5 - 35.6 g/dL [facility] MCV (RBC) [Entitic vol] 85.1 fL 83.5 - 101 f L [facility] Monocytes (Bld) [#/Vol] 1.6 10*3/uL High 0.0 - 0.8 10*3/uL [facility] Monocytes+Macrophages/10 0 WBC Manual cnt (Syn fld) 15 % . [facility] Neutrophils (Bld) [#/Vol] 7 10*3/uL 1.8 - 7.7 10*3/uL [facility] Neutrophils/100 WBC Manual cnt (Syn fld) 65.6 % . [facility] NRBC 0.1 /100{WBC} 0 - 0.5 /100{WBC} [facility] Platelet mean volume (Bld) [Entitic vol] 7.3 fL 6.6 - 10.1 fL [facility] Platelets (Bld) [#/Vol] 526 10*3/uL High 150 - 450 10*3/uL [facility] RBC LM.HPF (Urine sed) [#/Area] 4.75 10*6/uL 3.90 - 5.60 10*6/uL [facility] WBC (Bld) [#/Vol] 10.7 10*3/uL High 4.1 - 10.5 10*3/uL [facility] WBC LM.HPF (Urine sed) [#/Area] 10.7 10*3/uL High 4.1 - 10.5 10*3/uL [facility] Complete Blood Count Auto Di ffon 10-08-2024 Basophils (Bld) [#/Vol] 0.0 10*3/uL Normal 0.0-0.2 [facility] Comment on above: Result Comment: PERF ORMED BY: [facility] [address] [place] [address] PATHOLOGIST [employer] LION MURDOCK M.D. Performed By: #### U CREA, URTP #### [facility] [address] [place] [address] [place] Basophils/100 WBC (Bld) 0.3 % Normal . [facility] Comment on above: Performed By: #### U CREA, URTP #### [facility] [address] [place] [address] [place] Eosinophils (Bld) [#/Vol] 0.2 10*3/uL Normal 0.0-0.45 [facility] Comment on above: Performed By: #### U CREA, URTP #### [facility] [address] [place] [address] [place] Eosinophils/100 WBC (Bld) 1.7 % Normal . [facility] Comment on above: Performed By: #### U CREA, URTP #### [facility] [address] Erythrocyte distribution width (RBC) [Ratio] 14.7 % Normal 12.0-14.8 The [facility] Comment on above: Performed By: #### U CREA, URTP #### [place] [address] [place] Hematocrit (Bld) [Volume fraction] 40.5 % Normal 38.8-50.0 [facility] Comment on above: Performed By: #### U CREA, URTP #### [facility] [address] [place] [address] [place] Hemoglobin (Bld) [Mass/Vol] 13.6 g/dL Normal 13.0-17.0 [facility] Comment on above: Performed By: #### U CREA, URTP #### [facility] [address] [place] [address] [place] Lymphocytes (Bld) [#/Vol] 1.9 10*3/uL Normal 1.00-4.8 [facility] Comment on above: Performed By: #### U CREA, URTP #### [place] [address] [place] Lymphocytes/100 WBC (Bld) 17.4 % Normal . [facility] Comment on above: Performed By: #### U CREA, URTP #### [address] MCH (RBC) [Entitic mass] 28.7 pg Normal 27.5-35.2 [facility] Comment on above: Performed By: #### U CREA, URTP #### [address] MCV (RBC) [Entitic vol] 85.1 fL Normal 83.5-101 [facility] Comment on above: Performed By: #### U CREA, URTP #### [address] Mean Corpuscular HGB Conc 33.7 g/dL Normal 32.5-35.6 [facility] Comment on above: Performed By: #### U CREA, URTP #### [address] Monocytes (Bld) [#/Vol] 1.6 10*3/uL High 0.0-0.8 [facility] Comment on above: Performed By: #### U CREA, URTP #### [address] Monocytes/100 WBC (Bld) 15.0 % Normal . [facility] Comment on above: Performed By: #### U CREA, URTP #### [address] Neutrophils (Bld) [#/Vol] 7.0 10*3/uL Normal 1.8-7.7 [facility] Comment on above: Performed By: #### U CREA, URTP #### [address] Neutrophils/100 WBC (Bld) 65.6 % Normal . [facility] Comment on above: Performed By: #### U CREA, URTP #### [address] NRBC% 0.1 /100{WBC} Normal 0-0.5 The [facility] Comment on above: Performed By: #### U ADAM, URTP #### [address] Platelet mean volume (Bld) [Entitic vol] 7.3 fL Normal 6.6-10.1 [facility] Comment on above: Performed By: #### U CREEmily, URTP #### [address] Platelets (Bld) [#/Vol] 526 10*3/uL High 150-450 [facility] Comment on above: Performed By: #### U ADAM, URTP #### [address] RBC (Bld) [#/Vol] 4.75 10*6/uL Normal 3.90-5.60 The [facility] Comment on above: Performed By: #### U CREEmily, URTP #### [address] WBC (Bld) [#/Vol] 10.7 10*3/uL High 4.1-10.5 [facility] Comment on above: Performed By: #### U CREEmily, URTP #### [address] Comprehensive Metabolic Pane hanna 10-08-2024 Albumin [Mass/Vol] 4.2 g/dL Normal 3.5-5.7 The [facility] Comment on above: Performed By: #### U CREEmily, URTP #### [address] Albumin/Globulin [Mass ratio] 1.3 {ratio} Normal [facility] Comment on above: Performed By: #### U CREEmily, URTP #### [address] ALP [Catalytic activity/Vol] 75 U/L Normal 34-104 [facility] Comment on above: Performed By: #### U CREEmily, URTP #### [facility] [address] [place] [address] [place] ALT [Catalytic activity/Vol] 19 U/L Normal 7-52 [facility] Comment on above: Performed By: #### U CREA, URTP #### [facility] [address] Anion gap [Moles/Vol] 11.4 mmol/L Normal 6.0-15.0 Th e [facility] Comment on above: Performed By: #### U CREA, URTP #### [facility] [address] AST [Catalytic activity/Vol] 17 U/L Normal 13-39 [facility] Comment on above: Performed By: #### U CREA, URTP #### [facility] [address] [place] [address] [place] Bilirubin [Mass/Vol] 0.5 mg/dL Normal 0.3-1.0 [facility] Comment on above: Performed By: #### U CREA, URTP #### [place] [address] [place] Calcium [Mass/Vol] 10.5 mg/dL High 8.6-10.3 [facility] Comment on above: Performed By: #### U CREA, URTP #### [facility] [address] [place] [address] [place] Chloride [Moles/Vol] 99 mmol/L Normal 98-107 [facility] Comment on above: Performed By: #### U CREA, URTP #### [facility] [address] [place] [id number] [place] CO2 [Moles/Vol] 32.9 mmol/L High 21.0-31.0 The [facility] Comment on above: Performed By: #### U CREA, URTP #### [facility] [address] [place] [address] [place] Creatinine [Mass/Vol] 1.18 mg/dL Normal 0.70-1.30 [facility] Comment on above: Performed By: #### U CREA, URTP #### [address] Creatinine Clr Calc Pharmacy 74.18 Normal [facility] Comment on above: Result Comment: PERF ORMED BY: [place] [address] PATHOLOGIST [employer] LION MURDOCK M.D. Performed By: #### U CREA, URTP #### [place] [address] [place] GFR/1.73 sq M.predicted MDRD (S/P/Bld) [Vol rate/Area] mL/min/{1.73_m2} Normal [facility] Comment on above: Performed By: #### U CREA, URTP #### [address] Globulin (S) [Mass/Vol] 3.2 g/dL Normal T he [facility] Comment on above: Performed By: #### U CREA, URTP #### [address] Glucose [Mass/Vol] 93 mg/dL Normal 70-100 [facility] Comment on above: Result Comment: [place] Glucose Reference Range is dependent on time and content of last meal. Glucose of more than 200 mg/dL in a nonstressed, ambulatory subject supports the diagnosis of Diabetes Mellitus. ADA recommended reference range Performed By: #### U CREA, URTP #### [address] Potassium [Moles/Vol] 4.3 mmol/L Normal 3.5-5.1 [facility] Comment on above: Performed By: #### U CREA, URTP #### [address] Protein [Mass/Vol] 7.4 g/dL Normal 6.4-8.9 [facility] Comment on above: Performed By: #### U CREA, URTP #### [address] Sodium [Moles/Vol] 139 mmol/L Normal 136-145 [facility] Comment on above: Performed By: #### U CREA, URTP #### [facility] [address] Urea nitrogen [Mass/Vol] 13 mg/dL Normal 7-25 [facility] Comment on above: Performed By: #### U CREA, URTP #### [facility] [address] [place] [id number] [facility] Comprehensive metabolic pane hanna 10-08-2024 Albumin [Mass/Vol] 4.2 g/dL 3.5 - 5.7 g/dL [facility] Albumin/Globulin [Mass ratio] 1.3 {ratio} [facility] ALP [Catalytic activity/Vol] 75 U/L 34 - 104 U/L [facility] ALT [Catalytic activity/Vol] 19 U/L 7 - 52 U/L [facility] Anion gap [Moles/Vol] 11.4 mmol/L 6.0 - 15.0 meq/L [facility] AST [Catalytic activity/Vol] 17 U/L 13 - 39 U/L [facility] Bilirubin [Mass/Vol] 0.5 mg/dL 0.3 - 1 .0 mg/dL [facility] Calcium [Mass/Vol] 10.5 mg/dL High 8.6 - 10. 3 mg/dL [facility] Chloride [Moles/Vol] 99 mmol/L 98 - 10 7 mmol/L [facility] CO2 [Moles/Vol] 32.9 mmol/L High 21.0 - 31.0 mmol/L [facility] Creatinine (U) [Mass/Vol] 1.18 mg/dL 0.70 - 1.30 mg/dL [facility] CREATININE CLR CALC PHARMACY 74.18 [facility] ESTIMATED GFR mL/Min [facility] Globulin (S) [Mass/Vol] 3.2 g/dL N [facility] Glucose [Mass/Vol] 93 mg/dL 70 - 100 mg/dL [facility] Comment on above: Random Glucose Refer ence Range is dependent on time and content of last meal. Glucose of more than 200 mg/dL in a nonstressed, ambulatory subject supports the diagnosis of Diabetes Mellitus. ADA recommended reference range Interpretation and review of laboratory results Abnormal [facility] Potassium [Moles/Vol] 4.3 mmol/L 3.5 - 5.1 mmol/L [facility] Protein [Mass/Vol] 7.4 g/dL 6.4 - 8.9 g/dL [facility] Sodium [Moles/Vol] 139 mmol/L 136 - 145 mmol/L [facility] Urea nitrogen [Mass/Vol] 13 mg/dL 7 - 25 mg/d L Critical [facility] hospital GLUCOSE POCT GLUCOMETERSon 1 11-24-2023 Glucose [Mass/Vol] 102 mg/dL [facility] Comment on above: Random Glucose Refer ence Range is dependent on time and content of last meal. Glucose of more than 200 mg/dL in a nonstressed, ambulatory subject supports the diagnosis of Diabetes Mellitus. [facility] Glucose Glucometer (dC) [M ass/Vol]Ordered By: Natacha Hess on 09-24-2024 Glucose [Mass/Vol] Capillary blood glucose measurement by glucometer (mass/volume) [facility] Comment on above: Random Glucose Refer ence Range is dependent on time and content of last meal. Glucose of more than 200 mg/dL in a nonstressed, ambulatory subject supports the diagnosis of Diabetes Mellitus. Glucose Poct Glucometerson 1 11-24-2023 Glucose [Mass/Vol] 102 mg/dL Normal [facility] Comment on above: Result Comment: [facility] Glucose Reference Range is dependent on time and content of last meal. Glucose of more than 200 mg/dL in a nonstressed, ambulatory subject supports the diagnosis of Diabetes Mellitus. PERFORMED BY: [place] [address] PATHOLOGIST [employer] HILLARY SUE M.D. Performed By: #### G LUEFRAIN #### Point of Care testing , PET tumor subq tx strat sb-m ton 09-24-2024 PET tumor subq tx strat sb-mt [facility] [place] [address] Nuclear Medicine Report Signed Patient: Bert Yeung MR#: [id number] 47 : 1950 Acct:[id number] Age/Sex: 73 / M ADM Date: 09/24/24 Loc: Room: Type: [facility] RCR Attending Dr: Natacha Hess MD Copies [...] Carlos Cavanaugh M.D.09/24/2024 3:50 PM Dictation Location: [place] [address] Transcribed By: [facility] 09/24/24 [id number] Dictated By: Carlos Cavanaugh II, MD 09/24/24 1549 Signed By: 09/24/24 1550 [facility] Automated basophil %Ordered By: Natacha Deshawn on 09-10-2024 Basophils/100 WBC (Bld) 0.5 % Normal . [facility] Comment on above: Performed By: #### U CREEmily, URTP #### [address] Automated basophil countOrde red By: Natacha Louisse on 09-10-2024 Basophils (Bld) [#/Vol] 0.0 10*3/uL Normal 0.0-0.2 [facility] Comment on above: Result Comment: PERF ORMED BY: [place] [address] PATHOLOGIST [employer] HILLARY SUE M.D. Performed By: #### U CREEmily, URTP #### [address] Automated blood monocyte cou ntOrdered By: Natacha Hess on 09-10-2024 Monocytes (Bld) [#/Vol] 1.2 10*3/uL High 0.0-0.8 [facility] Comment on above: Performed By: #### U ADAM, URTP #### [facility] [address] [place] [address] Automated eosinophil %Ordere d By: Natacha Hess on 09-10-2024 Eosinophils/100 WBC (Bld) 2.0 % Normal . [facility] Comment on above: Performed By: #### U CREEmily, URTP #### [facility] [address] [place] [address] Automated eosinophil countOr dered By: Natacha Deshawn on 09-10-2024 Eosinophils (Bld) [#/Vol] 0.2 10*3/uL Normal 0.0-0.45 [facility] Comment on above: Performed By: #### U CREEmily, URTP #### [address] Automated monocyte %Ordered By: Natacha Hess on 09-10-2024 Monocytes/100 WBC (Bld) 12.2 % Normal . [facility] Comment on above: Performed By: #### U CREA, URTP #### [facility] [address] Automated neutrophil %Ordere d By: Natacha Hess on 09-10-2024 Neutrophils/100 WBC (Bld) 70.5 % Normal . [facility] Comment on above: Performed By: #### U CREA, URTP #### [facility] [address] Basophils Auto (Bld) [#/Vol] Ordered By: Natacha Hess on 09-10-2024 Basophils (Bld) [#/Vol] Automated basoph il count 0.0-0.2 [facility] Basophils/100 WBC Auto (Bld) Ordered By: Natacha Hess on 09-10-2024 Basophils/100 WBC (Bld) Automated basophil % . [facility] CBC W Auto Differential pane l (Bld)on 09-10-2024 Basophils (Bld) [#/Vol] 0 10*3/uL 0.0 - 0.2 10*3/uL [facility] Basophils/100 WBC Manual cnt (Syn fld) 0.5 % . [facility] Eosinophils (Bld) [#/Vol] 0.2 10*3/uL 0.0 - 0.45 10*3/uL [facility] Eosinophils/100 WBC Manual cnt (Syn fld) 2 % . [facility] Erythrocyte distribution width (RBC) [Ratio] 15.2 % High 12.0 - 14.8 % [facility] Hematocrit (Bld) [Volume fraction] 39.2 % 38.8 - 50.0 % [facility] Hemoglobin (Bld) [Mass/Vol] 13 g/dL 13.0 - 17.0 g/dL [facility] Interpretation and review of laboratory results Abnormal [facility] Lymphocytes (Bld) [#/Vol] 1.5 10*3/uL 1.00 - 4.8 10*3/uL [facility] Lymphocytes/100 WBC Manual cnt (Syn fld) 14.8 % . [facility] MCH (RBC) [Entitic mass] 28.6 pg 27. 5 - 35.2 pg [facility] MCHC (RBC) [Mass/Vol] 33.2 g/dL 32.5 - 35.6 g/dL [facility] MCV (RBC) [Entitic vol] 86.1 fL 83.5 - 101 f L [facility] Monocytes (Bld) [#/Vol] 1.2 10*3/uL High 0.0 - 0.8 10*3/uL [facility] Monocytes+Macrophages/10 0 WBC Manual cnt (Syn fld) 12.2 % . [facility] Neutrophils (Bld) [#/Vol] 7.1 10*3/uL 1.8 - 7.7 10*3/uL [facility] Neutrophils/100 WBC Manual cnt (Syn fld) 70.5 % . [facility] NRBC 0 /100{WBC} 0 - 0.5 /100{WBC} [facility] Platelet mean volume (Bld) [Entitic vol] 7.3 fL 6.6 - 10.1 fL [facility] Platelets (Bld) [#/Vol] 437 10*3/uL 150 - 450 10*3/uL [facility] RBC LM.HPF (Urine sed) [#/Area] 4.56 /[HPF] 3.90 - 5.60 [facility] WBC (Bld) [#/Vol] 10.1 10*3/uL 4.1 - 10.5 10*3/uL [facility] WBC LM.HPF (Urine sed) [#/Area] 10.1 10*3/uL 4.1 - 10.5 10*3/uL [facility] 09-10-2024 CT chest [place] [facility] [place] [address] CT Scan Report Signed Patient: Bert Yeung MR#: [id number] 47 : 1950 Acct:[id number] Age/Sex: 73 / M ADM Date: 09/10/24 Loc: XT [facility]: Natacha Hess [...] cannot BE excluded. Impression dictated by: Crescencio Blacna Jr., DAnselmoOAnselmo09/10/2024 12:36 PM Dictation Location: [place] [address] Transcribed By: [facility] 09/10/24 1236 Dictated By: Crescencio Blanca Jr, DO 09/10/24 1224 Signed By: 09/10/24 1236 Normal [facility] Complete Blood Count Auto Di ffon 09-10-2024 Mean Corpuscular HGB Conc 33.2 g/dL Normal 32.5-35.6 [facility] Comment on above: Performed By: #### U GRACY MEDINA #### [facility] [address] [place] [address] [facility] NRBC% 0.0 /100{WBC} Normal 0-0.5 [facility] Comment on above: Performed By: #### GRACY GRIFFIN #### [place] [address] [place] Eosinophils Auto (Bld) [#/Vo l]Ordered By: Natacha Hess on 09-10-2024 Eosinophils (Bld) [#/Vol] Automated eosinophil count 0.0-0.45 [facility] Eosinophils/100 WBC Auto (Bl d)Ordered By: Natacha Hess on 09-10-2024 Eosinophils/100 WBC (Bld) Automated eosinophil % . [facility] Erythrocyte distribution wid th Auto (RBC) [Ratio]Ordered By: Natacha Hess on 09-10-2024 Erythrocyte distribution width (RBC) [Ratio] Erythrocyte distribution width [Ratio] by Automated count High 12.0-14.8 [facility] Erythrocyte distribution wid th [Ratio] by Automated countOrdered By: Natacha Hess on 09-10-2024 Erythrocyte distribution width (RBC) [Ratio] 15.2 % High 12.0-14.8 [facility] Comment on above: Performed By: #### U ADAM, URTP #### [address] Erythrocytes [#/volume] in B lood by Automated countOrdered By: Natacha Hess on 09-10-2024 RBC (Bld) [#/Vol] 4.56 10*6/uL Normal 3.90-5.60 [facility] Comment on above: Performed By: #### U ADAM, URTP #### [address] Hematocrit Auto (Bld) [Volum e fraction]Ordered By: Natacha Hess on 09-10-2024 Hematocrit (Bld) [Volume fraction] Hematocrit [Volume Fraction] of Blood by Automated count 38.8-50.0 [facility] Hematocrit [Volume Fraction] of Blood by Automated countOrdered By: Natacha Hess on 09-10-2024 Hematocrit (Bld) [Volume fraction] 39.2 % Normal 38.8-50.0 [facility] Comment on above: Performed By: #### U ADAM, URTP #### [address] Hemoglobin [Mass/volume] in BloodOrdered By: Natacha Hess on 09-10-2024 Hemoglobin (Bld) [Mass/Vol] 13.0 g/dL Normal 13.0-17.0 [facility] Comment on above: Performed By: #### Erin MEDINA URMIGUEL #### [facility] [address] [place] [address] Hemoglobin (Bld) [Mass/Vol] Hemoglobin [Mass/volume] in Blood 13.0-17.0 [facility] Leukocytes [#/volume] correc neetu for nucleated erythrocytes in Blood by Automated counOrdered By: Natacha Hess on 09-10-2024 WBC corrected for nucl RBC Auto (Bld) [#/Vol] 10.1 10*3/uL 4.1-10.5 [facility] WBC corrected for nucl RBC Auto (Bld) [#/Vol] Leukocytes [#/volume] corrected for nucleated erythrocytes in Blood by Automated coun 4.1-10.5 [facility] Leukocytes [#/volume] in Blo od by Automated countOrdered By: Natacha Hess on 09-10-2024 WBC (Bld) [#/Vol] 10.1 10*3/uL Normal 4.1-10.5 [facility] Comment on above: Performed By: #### Erin MEDINA URMIGUEL #### [facility] [address] [place] [address] Lymphocytes Auto (Bld) [#/Vo l]Ordered By: Natacha Hess on 09-10-2024 Lymphocytes (Bld) [#/Vol] Lymphocytes [#/volume] in Blood by Automated count 1.00-4.8 [facility] Lymphocytes [#/volume] in Bl ood by Automated countOrdered By: Natacha Hess on 09-10-2024 Lymphocytes (Bld) [#/Vol] 1.5 10*3/uL Normal 1.00-4.8 [facility] Comment on above: Performed By: #### Erin MEDINA URTP #### [facility] [address] [place] [address] [place] Lymphocytes/100 WBC Auto (Bl d)Ordered By: Natacha Hess on 09-10-2024 Lymphocytes/100 WBC (Bld) Lymphocytes/100 leukocytes in Blood by Automated count . [facility] Lymphocytes/100 leukocytes i n Blood by Automated countOrdered By: Ntaacha Hess on 09-10-2024 Lymphocytes/100 WBC (Bld) 14.8 % Normal . [facility] Comment on above: Performed By: #### U ADAM, URTP #### [facility] [address] MCH Auto (RBC) [Entitic mass ]Ordered By: Natacha Hess on 09-10-2024 MCH (RBC) [Entitic mass] MCH [Entitic ma ss] by Automated count 27.5-35.2 [facility] MCH [Entitic mass] by Automa neetu countOrdered By: Natacha Hess on 09-10-2024 MCH (RBC) [Entitic mass] 28.6 pg Normal 27.5-35.2 [facility] Comment on above: Performed By: #### U ADAM, URTP #### [facility] [address] [place] [address] MCHC Auto (RBC) [Mass/Vol]Or dered By: Natacha Hess on 09-10-2024 MCHC (RBC) [Mass/Vol] 33.2 g/dL 32.5-35.6 [facility] MCHC (RBC) [Mass/Vol] MCHC [Mass/volume] by Automated count 32.5-35.6 [facility] MCV Auto (RBC) [Entitic vol] Ordered By: Natacha Hess on 09-10-2024 MCV (RBC) [Entitic vol] MCV [Entitic vol ume] by Automated count 83.5-101 [facility] MCV [Entitic volume] by Auto mated countOrdered By: Natacha Hess on 09-10-2024 MCV (RBC) [Entitic vol] 86.1 fL Normal 83.5-101 [facility] Comment on above: Performed By: #### U ADAM, URTP #### [facility] [address] [place] [address] Monocytes Auto (Bld) [#/Vol] Ordered By: Natacha Hess on 09-10-2024 Monocytes (Bld) [#/Vol] Automated blood monocyte count High 0.0-0.8 [facility] Monocytes/100 WBC Auto (Bld) Ordered By: Natacha Hess on 09-10-2024 Monocytes/100 WBC (Bld) Automated monocyte % . [facility] Neutrophils Auto (Bld) [#/Vo l]Ordered By: Natacha Hess on 09-10-2024 Neutrophils (Bld) [#/Vol] Neutrophils [#/volume] in Blood by Automated count 1.8-7.7 [facility] Neutrophils [#/volume] in Bl ood by Automated countOrdered By: Natacha Hess on 09-10-2024 Neutrophils (Bld) [#/Vol] 7.1 10*3/uL Normal 1.8-7.7 [facility] Comment on above: Performed By: #### U ADAM, URTP #### [facility] [address] Neutrophils/100 WBC Auto (Bl d)Ordered By: Natacha Hess on 09-10-2024 Neutrophils/100 WBC (Bld) Automated neutrophil % . [facility] Nucleated erythrocytes [Pres ence] in Blood by Automated countOrdered By: Natacha Hess on 09-10-2024 Nucleated RBC Auto Ql (Bld) 0.0 /100{WBC} 0-0.5 [facility] Nucleated RBC Auto Ql (Bld) Nucleated erythrocytes [Presence] in Blood by Automated count 0-0.5 [facility] Platelet mean volume Auto (B ld) [Entitic vol]Ordered By: Natacha Hess on 09-10-2024 Platelet mean volume (Bld) [Entitic vol] Platelet mean volume [Entitic volume] in Blood by Automated count 6.6-10.1 [facility] Platelet mean volume [Entiti c volume] in Blood by Automated countOrdered By: Natacha Hess on 09-10-2024 Platelet mean volume (Bld) [Entitic vol] 7.3 fL Normal 6.6-10.1 [facility] Comment on above: Performed By: #### U ADAM, URTP #### [facility] [address] [place] [address] [place] Platelets Auto (Bld) [#/Vol] Ordered By: Natacha Hess on 09-10-2024 Platelets (Bld) [#/Vol] Platelets [#/vol ume] in Blood by Automated count 150-450 [facility] Platelets [#/volume] in Bloo d by Automated countOrdered By: Natacha Deshawn on 09-10-2024 Platelets (Bld) [#/Vol] 437 10*3/uL Normal 150-450 [facility] Comment on above: Performed By: #### U CREA, URTP #### [facility] [address] RBC Auto (Bld) [#/Vol]Ordere d By: Natacha Hess on 09-10-2024 RBC (Bld) [#/Vol] Erythrocytes [#/volume] in Blood by Automated count 3.90-5.60 [facility] WBC Auto (Bld) [#/Vol]Ordere d By: Natacha Hess on 09-10-2024 WBC (Bld) [#/Vol] Leukocytes [#/volume] in Blood by Automated count 4.1-10.5 [facility] Automated erythrocytes count in urine sediment (number/area)Ordered By: Mireya Oliveira on 03-12-2024 RBC Auto (Urine sed) [#/Area] 1-2 [HPF] 0-4 [facility] Automated leukocytes count i n urine sediment (number/area)Ordered By: Mireya Oliveira on 03-12-2024 WBC Auto (Urine sed) [#/Area] 5-9 [HPF] High 0-4 [facility] Bilirubin Test strip Ql (U)O rdered By: Mireya Loyaimore on 03-12-2024 Bilirubin Ql (U) Negative Negative [facility] Color Auto (U)Ordered By: Emy Oliveira on 03-12-2024 Color (U) Yellow Yellow [facility] Ketones Auto test strip (U) [Mass/Vol]Ordered By: Mireya Loyaimore on 03-12-2024 Ketones (U) [Mass/Vol] Negative Negative [facility] - UrinalysisOrder ed By: Mireya Oliveira on 03-12-2024 Hyaline casts LM Ql (Urine sed) None seen [LPF] 0-8 [facility] Nitrite Test strip Ql (U)Ord ered By: Mireya Oliveira on 03-12-2024 Nitrite Ql (U) Negative Negative [facility] Protein Auto test strip (U) [Mass/Vol]Ordered By: Mireya Oliveira on 03-12-2024 Protein (U) [Mass/Vol] Trace mg/dL High Negative [facility] Specific gravity Auto test s trip (U) [Rel density]Ordered By: Mireya Oliveira on 03-12-2024 Specific gravity (U) [Rel density] 1.018 1.001-1.030 [facility] Squamous epithelial cells de tection in urine sediment by light microscopyOrdered By: Mireya Oliveira on 03-12-2024 Epithelial cells.squamous LM Ql (Urine sed) None seen [HPF] 0-2 [facility] Urine bacteria detection by automated methodOrdered By: Mireya Oliveira on 03-12-2024 Bacteria Auto Ql (U) None seen [HPF] None Seen [facility] Urine clarity by refractomet ry automatedOrdered By: Mireya Oliveira on 03-12-2024 Clarity Refractometry automated (U) Clear Clear [facility] Urine culture routineOrdered By: Mireya Oliveira on 03-12-2024 Bacteria identified Cx Nom (U) 2 Days [facility] Urine glucose measurement by automated test strip (mass/volume)Ordered By: Mireya Oliveira on 03-12-2024 Glucose Auto test strip (U) [Mass/Vol] Normal mg/dL Normal [facility] Urine hemoglobin detection b y automated test stripOrdered By: Mireya Oliveira on 03-12-2024 Hemoglobin Auto test strip Ql (U) Negative Negative [facility] Urine leukocyte esterase det ection by automated test stripOrdered By: Mireya Oliveira on 03-12-2024 Leukocyte esterase Auto test strip Ql (U) 1+ High Negative [facility] Urobilinogen Auto test strip (U) [Mass/Vol]Ordered By: Mireya Oliveira on 03-12-2024 Urobilinogen (U) [Mass/Vol] Normal mg/dL Normal [facility] pH Auto test strip (U)Ordere d By: Mireya Oliveira on 03-12-2024 pH (U) 6.0 [pH] 5.0-9.0 [facility] Alanine aminotransferase [En zymatic activity/volume] in Serum or PlasmaOrdered By: Natacha Hess on 03-05-2024 ALT [Catalytic activity/Vol] 20 U/L [facility] ALT [Catalytic activity/Vol] Alanine aminotransferase [Enzymatic activity/volume] in Serum or Plasma [facility] Albumin [Mass/volume] in Ser um or Plasma by Bromocresol green (BCG) dye binding methoOrdered By: Natacha Hess on 03-05-2024 Albumin BCG dye [Mass/Vol] 4.1 g/dL 3.5-5.7 [facility] Albumin BCG dye [Mass/Vol] Albumin [Mass/volume] in Serum or Plasma by Bromocresol green (BCG) dye binding metho 3.5-5.7 [facility] Alkaline phosphatase [Enzyma tic activity/volume] in Serum or PlasmaOrdered By: Natacha Hess on 03-05-2024 ALP [Catalytic activity/Vol] 58 U/L 104 [facility] ALP [Catalytic activity/Vol] Alkaline phosphatase [Enzymatic activity/volume] in Serum or Plasma 104 [facility] Aspartate aminotransferase [ Enzymatic activity/volume] in Serum or PlasmaOrdered By: Natacha Hess on 03-05-2024 AST [Catalytic activity/Vol] 18 U/L 39 [facility] AST [Catalytic activity/Vol] Aspartate aminotransferase [Enzymatic activity/volume] in Serum or Plasma 39 [facility] Basophils Auto (Bld) [#/Vol] Ordered By: Natacha Hess on 03-05-2024 Basophils (Bld) [#/Vol] 0.1 10*3/uL 0.0-0.2 [facility] Basophils/100 WBC Auto (Bld) Ordered By: Natacha Hess on 03-05-2024 Basophils/100 WBC (Bld) 0.8 % . [facility] Bilirubin.total [Mass/volume ] in Serum or PlasmaOrdered By: Natacha Hess on 03-05-2024 Bilirubin [Mass/Vol] 0.3 mg/dL 0.3-1.0 [facility] Bilirubin [Mass/Vol] Bilirubin.total [Mass/volume] in Serum or Plasma 0.3-1.0 [facility] Calcium [Mass/volume] in Ser um or PlasmaOrdered By: Natacha Hess on 03-05-2024 Calcium [Mass/Vol] 10.0 mg/dL 8.6-10.3 [facility] Calcium [Mass/Vol] Calcium [Mass/volume] in Serum or Plasma 8.6-10.3 [facility] Carbon dioxide, total [Moles /volume] in Serum or PlasmaOrdered By: Natacha Hess on 03-05-2024 CO2 [Moles/Vol] 28.6 mmol/L 21.0-31.0 [facility] CO2 [Moles/Vol] Carbon dioxide, total [Moles/volume] in Serum or Plasma 21.0-31.0 [facility] Chloride [Moles/volume] in S harjit or PlasmaOrdered By: Natacha Hess on 03-05-2024 Chloride [Moles/Vol] 101 mmol/L 98-107 [facility] Chloride [Moles/Vol] Chloride [Moles/volume] in Serum or Plasma 98-107 [facility] Creatinine [Mass/volume] in Serum or PlasmaOrdered By: Natacah Hess on 03-05-2024 Creatinine [Mass/Vol] 1.09 mg/dL 0.70-1.30 [facility] Creatinine [Mass/Vol] Creatinine [Mass/volume] in Serum or Plasma 0.70-1.30 [facility] Eosinophils Auto (Bld) [#/Vo l]Ordered By: Natacha Hess on 03-05-2024 Eosinophils (Bld) [#/Vol] 0.2 10*3/uL 0.0-0.45 [facility] Eosinophils/100 WBC Auto (Bl d)Ordered By: Natacha Hess on 03-05-2024 Eosinophils/100 WBC (Bld) 1.5 % . [facility] Erythrocyte distribution wid th Auto (RBC) [Ratio]Ordered By: Natacha Hess on 03-05-2024 Erythrocyte distribution width (RBC) [Ratio] 15.7 % 12.0-14.8 [facility] Globulin Calc (S) [Mass/Vol] Ordered By: Natacha Hess on 03-05-2024 Globulin (S) [Mass/Vol] 3.9 g/dL [facility] Globulin (S) [Mass/Vol] Serum globulin measurement by calculation (mass/volume) [facility] Glucose [Mass/volume] in Ser um or PlasmaOrdered By: Natacha Hess on 03-05-2024 Glucose [Mass/Vol] 117 mg/dL High 70-100 [facility] Comment on above: ADA recommended refe rence rangeRandom Glucose Reference Range is dependent on time and content of last meal. Glucose of more than 200 mg/dL in a nonstressed, ambulatory subject supports the diagnosis of Diabetes Mellitus. Glucose [Mass/Vol] Glucose [Mass/volume] in Serum or Plasma High 70-100 [facility] Comment on above: ADA recommended refe rence rangeRandom Glucose Reference Range is dependent on time and content of last meal. Glucose of more than 200 mg/dL in a nonstressed, ambulatory subject supports the diagnosis of Diabetes Mellitus. Hematocrit Auto (Bld) [Volum e fraction]Ordered By: Natacha Hess on 03-05-2024 Hematocrit (Bld) [Volume fraction] 39.9 % 38.8-50.0 [facility] Hemoglobin [Mass/volume] in BloodOrdered By: Natacha Hess on 03-05-2024 Hemoglobin (Bld) [Mass/Vol] 13.2 g/dL 13.0-17.0 [facility] Leukocytes [#/volume] correc neetu for nucleated erythrocytes in Blood by Automated counOrdered By: Natacha Hess on 03-05-2024 WBC corrected for nucl RBC Auto (Bld) [#/Vol] 13.0 10*3/uL 4.1-10.5 [facility] Lymphocytes Auto (Bld) [#/Vo l]Ordered By: Natacha Hess on 03-05-2024 Lymphocytes (Bld) [#/Vol] 1.8 10*3/uL 1.00-4.8 [facility] Lymphocytes/100 WBC Auto (Bl d)Ordered By: Natacha Hess on 03-05-2024 Lymphocytes/100 WBC (Bld) 13.5 % . [facility] MCH Auto (RBC) [Entitic mass ]Ordered By: Natacha Hess on 03-05-2024 MCH (RBC) [Entitic mass] 28.1 pg 27.5-35.2 [facility] MCHC Auto (RBC) [Mass/Vol]Or dered By: Natacha Hess on 03-05-2024 MCHC (RBC) [Mass/Vol] 33.2 g/dL 32.5-35.6 [facility] MCV Auto (RBC) [Entitic vol] Ordered By: Natacha Hess on 03-05-2024 MCV (RBC) [Entitic vol] 84.7 fL 83.5-101 [facility] Monocytes Auto (Bld) [#/Vol] Ordered By: Natacha Hess on 03-05-2024 Monocytes (Bld) [#/Vol] 1.5 10*3/uL 0.0-0.8 [facility] Monocytes/100 WBC Auto (Bld) Ordered By: Natacha Hess on 03-05-2024 Monocytes/100 WBC (Bld) 11.2 % . [facility] Neutrophils Auto (Bld) [#/Vo l]Ordered By: Natacha Hess on 03-05-2024 Neutrophils (Bld) [#/Vol] 9.5 10*3/uL 1.8-7.7 [facility] Neutrophils/100 WBC Auto (Bl d)Ordered By: Natacha Hess on 03-05-2024 Neutrophils/100 WBC (Bld) 73.0 % . [facility] No Panel InformationOrdered By: Natacha Hess on 03-05-2024 Estimated GFR (CKD-EPI) > 60.0 mL/Min [facility] Creatinine Clearance (Chem 79.98 [facility] Nucleated erythrocytes [Pres ence] in Blood by Automated countOrdered By: Natacha Hess on 03-05-2024 Nucleated RBC Auto Ql (Bld) 0.0 /100{WBC} 0-0.5 [facility] Platelet mean volume Auto (B ld) [Entitic vol]Ordered By: Natacha Hess on 03-05-2024 Platelet mean volume (Bld) [Entitic vol] 7.2 fL 6.6-10.1 [facility] Platelets Auto (Bld) [#/Vol] Ordered By: Natacha Hess on 03-05-2024 Platelets (Bld) [#/Vol] 502 10*3/uL 150-450 [facility] Potassium [Moles/volume] in Serum or PlasmaOrdered By: Natacha Hess on 03-05-2024 Potassium [Moles/Vol] 3.9 mmol/L 3.5-5.1 [facility] Potassium [Moles/Vol] Potassium [Moles/volume] in Serum or Plasma 3.5-5.1 [facility] Protein [Mass/volume] in Ser um or PlasmaOrdered By: Natacha Hess on 03-05-2024 Protein [Mass/Vol] 8.0 g/dL 6.4-8.9 [facility] Protein [Mass/Vol] Protein [Mass/volume] in Serum or Plasma 6.4-8.9 [facility] RBC Auto (Bld) [#/Vol]Ordere d By: Natacha Hess on 03-05-2024 RBC (Bld) [#/Vol] 4.71 10*6/uL 3.90-5.60 [facility] Serum or plasma albumin/glob ulin mass ratioOrdered By: Natacha Hess on 03-05-2024 Albumin/Globulin [Mass ratio] 1.1 {ratio} [facility] Albumin/Globulin [Mass ratio] Serum or plasma albumin/globulin mass ratio [facility] Serum or plasma anion gap de terminationOrdered By: Natacha Hess on 03-05-2024 Anion gap [Moles/Vol] 12.3 mmol/L 6.0-15.0 [facility] Anion gap [Moles/Vol] Serum or plasma anion gap determination 6.0-15.0 [facility] Sodium [Moles/volume] in Ser um or PlasmaOrdered By: Natacha Hess on 03-05-2024 Sodium [Moles/Vol] 138 mmol/L 136-145 [facility] Sodium [Moles/Vol] Sodium [Moles/volume] in Serum or Plasma 136-145 [facility] Urea nitrogen [Mass/volume] in Serum or PlasmaOrdered By: Natacha Hess on 03-05-2024 Urea nitrogen [Mass/Vol] 15 mg/dL 7-25 [facility] Urea nitrogen [Mass/Vol] Urea nitrogen [Mass/volume] in Serum or Plasma 06-07 [facility] WBC Auto (Bld) [#/Vol]Ordere d By: Natacah Hess on 03-05-2024 WBC (Bld) [#/Vol] 13.0 10*3/uL 4.1-10.5 [facility] Alanine aminotransferase [En zymatic activity/volume] in Serum or PlasmaOrdered By: Natacha Hess on 02-01-2023 ALT [Catalytic activity/Vol] 20 U/L 7-52 [facility] Albumin [Mass/volume] in Ser um or Plasma by Bromocresol green (BCG) dye binding methoOrdered By: Natacha Hess on 02-01-2023 Albumin BCG dye [Mass/Vol] 4.0 g/dL 3.5-5.7 [facility] Alkaline phosphatase [Enzyma tic activity/volume] in Serum or PlasmaOrdered By: Natacha Hess on 02-01-2023 ALP [Catalytic activity/Vol] 46 U/L 34-104 [facility] Aspartate aminotransferase [ Enzymatic activity/volume] in Serum or PlasmaOrdered By: Natacha Hess on 02-01-2023 AST [Catalytic activity/Vol] 15 U/L 13-39 [facility] Basophils Auto (Bld) [#/Vol] Ordered By: Natacha Hess on 02-01-2023 Basophils (Bld) [#/Vol] 0.0 10*3/uL 0.0-0.2 [facility] Basophils/100 WBC Auto (Bld) Ordered By: Natacha Hess on 02-01-2023 Basophils/100 WBC (Bld) 0.5 % . [facility] Bilirubin.total [Mass/volume ] in Serum or PlasmaOrdered By: Natacha Hess on 02-01-2023 Bilirubin [Mass/Vol] 0.4 mg/dL 0.3-1.0 [facility] Calcium [Mass/volume] in Ser um or PlasmaOrdered By: Natacha Hess on 02-01-2023 Calcium [Mass/Vol] 10.3 mg/dL 8.6-10.3 [facility] Carbon dioxide, total [Moles /volume] in Serum or PlasmaOrdered By: Natacha Hess on 02-01-2023 CO2 [Moles/Vol] 28.5 mmol/L 21.0-31.0 [facility] Chloride [Moles/volume] in S harjit or PlasmaOrdered By: Natacha Hess on 02-01-2023 Chloride [Moles/Vol] 103 mmol/L 98-107 [facility] Creatinine [Mass/volume] in Serum or PlasmaOrdered By: Natacha Hess on 02-01-2023 Creatinine [Mass/Vol] 1.08 mg/dL 0.70-1.30 [facility] Eosinophils Auto (Bld) [#/Vo l]Ordered By: Natacha Hess on 02-01-2023 Eosinophils (Bld) [#/Vol] 0.1 10*3/uL 0.0-0.45 [facility] Eosinophils/100 WBC Auto (Bl d)Ordered By: Natacha Hess on 02-01-2023 Eosinophils/100 WBC (Bld) 1.4 % . [facility] Erythrocyte distribution wid th Auto (RBC) [Ratio]Ordered By: Natacha Hess on 02-01-2023 Erythrocyte distribution width (RBC) [Ratio] 14.6 % 12.0-14.8 [facility] Globulin Calc (S) [Mass/Vol] Ordered By: Natacha Hess on 02-01-2023 Globulin (S) [Mass/Vol] 3.2 g/dL [facility] Glucose [Mass/volume] in Ser um or PlasmaOrdered By: Natacha Hess on 02-01-2023 Glucose [Mass/Vol] 132 mg/dL 74-109 [facility] Comment on above: ADA recommended refe rence rangeRandom Glucose Reference Range is dependent on time and content of last meal. Glucose of more than 200 mg/dL in a nonstressed, ambulatory subject supports the diagnosis of Diabetes Mellitus. Hematocrit Auto (Bld) [Volum e fraction]Ordered By: Natacha Hess on 02-01-2023 Hematocrit (Bld) [Volume fraction] 37.9 % 38.8-50.0 [facility] Hemoglobin [Mass/volume] in BloodOrdered By: Natacha Hess on 02-01-2023 Hemoglobin (Bld) [Mass/Vol] 12.9 g/dL 13.0-17.0 [facility] Laboratory - Chemistry and C hemistry - challengeOrdered By: Natacha Hess on 02-01-2023 GFR/1.73 sq M.predicted MDRD (S/P/Bld) [Vol rate/Area] mL/min/{1.73_m2} [facility] Lactate dehydrogenase [Enzym atic activity/volume] in Serum or Plasma by Lactate to pyOrdered By: Natacha Hess on 02-01-2023 LDH Lactate to pyruvate reaction [Catalytic activity/Vol] 162 U/L 140-271 [facility] LDH Lactate to pyruvate reaction [Catalytic activity/Vol] Lactate dehydrogenase [Enzymatic activity/volume] in Serum or Plasma by Lactate to py 140-271 [facility] Leukocytes [#/volume] correc neetu for nucleated erythrocytes in Blood by Automated counOrdered By: Natacha Hess on 02-01-2023 WBC corrected for nucl RBC Auto (Bld) [#/Vol] 6.4 10*3/uL 4.1-10.5 [facility] Lymphocytes Auto (Bld) [#/Vo l]Ordered By: Natacha Hess on 02-01-2023 Lymphocytes (Bld) [#/Vol] 0.9 10*3/uL 1.00-4.8 [facility] Lymphocytes/100 WBC Auto (Bl d)Ordered By: Natacha Hess on 02-01-2023 Lymphocytes/100 WBC (Bld) 14.0 % . [facility] MCH Auto (RBC) [Entitic mass ]Ordered By: Natacha Hess on 02-01-2023 MCH (RBC) [Entitic mass] 29.9 pg 27.5-35.2 [facility] MCHC Auto (RBC) [Mass/Vol]Or dered By: Natacha Hess on 02-01-2023 MCHC (RBC) [Mass/Vol] 34.0 g/dL 32.5-35.6 [facility] MCV Auto (RBC) [Entitic vol] Ordered By: Natacha Hess on 02-01-2023 MCV (RBC) [Entitic vol] 88.0 fL 83.5-101 [facility] Monocytes Auto (Bld) [#/Vol] Ordered By: Natacha Hess on 02-01-2023 Monocytes (Bld) [#/Vol] 1.3 10*3/uL 0.0-0.8 [facility] Monocytes/100 WBC Auto (Bld) Ordered By: Natacha Hess on 02-01-2023 Monocytes/100 WBC (Bld) 19.8 % . [facility] Neutrophils Auto (Bld) [#/Vo l]Ordered By: Natacha Hess on 02-01-2023 Neutrophils (Bld) [#/Vol] 4.1 10*3/uL 1.8-7.7 [facility] Neutrophils/100 WBC Auto (Bl d)Ordered By: Natacha Hess on 02-01-2023 Neutrophils/100 WBC (Bld) 64.3 % . [facility] No Panel InformationOrdered By: Natacha Hess on 02-01-2023 Adrenocorticotropic Hormone 19.2 pg/mL 7.2-63.3 [facility] Comment on above: ACTH reference inter chelsy for samples collected between 7 and10 AM.Performed at: [facility] [address] [id number] Director: Shar Rose PhD, Phone: [phone] Pharmacy Creatinine Clearance (Chem 82.10 [facility] Nucleated erythrocytes [Pres ence] in Blood by Automated countOrdered By: Natacha Hess on 02-01-2023 Nucleated RBC Auto Ql (Bld) 0.1 /100{WBC} 0-0.5 [facility] Platelet mean volume Auto (B ld) [Entitic vol]Ordered By: Natacha Hess on 02-01-2023 Platelet mean volume (Bld) [Entitic vol] 7.0 fL 6.6-10.1 [facility] Platelets Auto (Bld) [#/Vol] Ordered By: Natacha Hess on 02-01-2023 Platelets (Bld) [#/Vol] 343 10*3/uL 150-450 [facility] Potassium [Moles/volume] in Serum or PlasmaOrdered By: Natacha Hess on 02-01-2023 Potassium [Moles/Vol] 3.7 mmol/L 3.5-5.1 [facility] Protein [Mass/volume] in Ser um or PlasmaOrdered By: Natacha Hess on 02-01-2023 Protein [Mass/Vol] 7.2 g/dL 6.4-8.9 [facility] RBC Auto (Bld) [#/Vol]Ordere d By: Natacha Hess on 02-01-2023 RBC (Bld) [#/Vol] 4.31 10*6/uL 3.90-5.60 [facility] Serum or plasma albumin/glob ulin mass ratioOrdered By: Natacha Hess on 02-01-2023 Albumin/Globulin [Mass ratio] 1.3 {ratio} [facility] Serum or plasma anion gap de terminationOrdered By: Natacha Hess on 02-01-2023 Anion gap [Moles/Vol] 12.2 mmol/L 6.0-15.0 [facility] Sodium [Moles/volume] in Ser um or PlasmaOrdered By: Natacha Hess on 02-01-2023 Sodium [Moles/Vol] 140 mmol/L 136-145 [facility] Thyrotropin [Units/volume] i n Serum or PlasmaOrdered By: Natacha Hess on 02-01-2023 TSH Qn 1.88 m[IU]/L 0.45-5.33 [facility] TSH Qn Thyrotropin [Units/volume] in Serum or Plasma 0.45-5.33 [facility] Thyroxine (T4) free [Mass/vo lume] in Serum or PlasmaOrdered By: Natacha Hess on 02-01-2023 Free T4 [Mass/Vol] 0.68 ng/dL 0.61-1.12 [facility] Free T4 [Mass/Vol] Thyroxine (T4) free [Mass/volume] in Serum or Plasma 0.61-1.12 [facility] Urea nitrogen [Mass/volume] in Serum or PlasmaOrdered By: Natacha Hess on 02-01-2023 Urea nitrogen [Mass/Vol] 14 mg/dL 7-25 [facility] WBC Auto (Bld) [#/Vol]Ordere d By: Natacha Hess on 02-01-2023 WBC (Bld) [#/Vol] 6.4 10*3/uL 4.1-10.5 [facility] Estimated glomerular filtrat ion rate (GFR) non- AmericanOrdered By: Natacha Hess on 11-01-2022 GFR/1.73 sq M.predicted among non-blacks MDRD (S/P/Bld) [Vol rate/Area] > 60 mL/Min [facility] GFR/1.73 sq M.predicted among non-blacks MDRD (S/P/Bld) [Vol rate/Area] Estimated glomerular filtration rate (GFR) non- [facility] No Panel InformationOrdered By: Natacha Hess on 11-01-2022 Estimated GFR () > 60 mL/Min [facility] Comment on above: GFR estimated refere nce range: According to KDOQI guidelines, <60 ml/min/1.73m2 is sufficient to diagnose a patient with chronic kidney disease. Platelet adequacy [Presence] in Blood by Light microscopyOrdered By: Natacha Hess on 11-01-2022 Platelets LM Ql (Bld) Increased Normal [facility] Platelets LM Ql (Bld) Platelet adequacy [Presence] in Blood by Light microscopy Normal [facility] Platelet morphology finding [Identifier] in BloodOrdered By: Natacha Hess on 11-01-2022 Platelet morphology finding Nom (Bld) N/A [facility] Platelet morphology finding Nom (Bld) Platelet morphology finding [Identifier] in Blood [facility] Platelets Large [Presence] i n Blood by Light microscopyOrdered By: Natacha Hess on 11-01-2022 Platelets Large LM Ql (Bld) Slight [facility] Platelets Large LM Ql (Bld) Platelets Large [Presence] in Blood by Light microscopy [facility] RBC morphologyOrdered By: Arnoldo Hess on 11-01-2022 RBC morphology finding Nom (Bld) Normal Normal [facility] RBC morphology finding Nom (Bld) RBC morphology Normal [facility] Laboratory - Hematology and Cell countsOrdered By: Natacha Hess on 08-31-2022 Nucleated RBC/100 WBC (Bld) [Ratio] 0.1 % 0-0.5 [facility] Random cortisol measurementO rdered By: Natacha Hess on 08-31-2022 Cortisol [Mass/Vol] 3.1 ug/dL [facility] Comment on above: Reference range: AM 6 - 24 ug/dl PM <10 ug/dl Cortisol [Mass/Vol] Random cortisol measurement [facility] Comment on above: Reference range: AM 6 - 24 ug/dl PM <10 ug/dl Albumin [Mass/volume] in Ser um or PlasmaOrdered By: Natacha Hess on 08-02-2022 Albumin [Mass/Vol] 3.3 g/dL 3.2-5.5 [facility] Basophils Auto (Bld) [#/Vol] Ordered By: Natacha Hess on 08-02-2022 Basophils (Bld) [#/Vol] 0.1 10*3/uL 0.0-0.2 [facility] Basophils/100 WBC Auto (Bld) Ordered By: Natacha Hess on 08-02-2022 Basophils/100 WBC (Bld) 0.7 % . [facility] Blood hemoglobin measurement (mass/volume)Ordered By: Natacha Hess on 08-02-2022 Hemoglobin (Bld) [Mass/Vol] 12.1 g/dL 13.0-17.0 [facility] Blood leukocytes automated c ount (number/volume)Ordered By: Natacha Hess on 08-02-2022 WBC (Bld) [#/Vol] 10.7 10*3/uL 4.5-11.0 [facility] Creatinine and Glomerular fi ltration rate.predicted panel (S/P/Bld)Ordered By: Natacha Hess on 08-02-2022 Creatinine [Mass/Vol] 1.23 mg/dL 0.64-1.27 [facility] Eosinophils Auto (Bld) [#/Vo l]Ordered By: Natacha Hess on 08-02-2022 Eosinophils (Bld) [#/Vol] 0.2 10*3/uL 0.0-0.45 [facility] Eosinophils/100 WBC Auto (Bl d)Ordered By: Natacha Hess on 08-02-2022 Eosinophils/100 WBC (Bld) 2.0 % . [facility] Erythrocyte distribution wid th Auto (RBC) [Ratio]Ordered By: Natacha Hess on 08-02-2022 Erythrocyte distribution width (RBC) [Ratio] 19.3 % 12.0-14.8 [facility] Estimated glomerular filtrat ion rate (GFR) non- AmericanOrdered By: Natacha Hess on 08-02-2022 GFR/1.73 sq M.predicted among non-blacks MDRD (S/P/Bld) [Vol rate/Area] 58 mL/Min [facility] Globulin Calc (S) [Mass/Vol] Ordered By: Natacha Hess on 08-02-2022 Globulin (S) [Mass/Vol] 2.9 g/dL [facility] Hematocrit Auto (Bld) [Volum e fraction]Ordered By: Natacha Hess on 08-02-2022 Hematocrit (Bld) [Volume fraction] 36.7 % 38.8-50.0 [facility] Laboratory - Hematology and Cell countsOrdered By: Natacha Hess on 08-02-2022 Nucleated RBC/100 WBC (Bld) [Ratio] 0.1 % 0-0.5 [facility] Lymphocytes Auto (Bld) [#/Vo l]Ordered By: Natacha Hess on 08-02-2022 Lymphocytes (Bld) [#/Vol] 1.9 10*3/uL 1.00-4.8 [facility] Lymphocytes/100 WBC Auto (Bl d)Ordered By: Natacha Hess on 08-02-2022 Lymphocytes/100 WBC (Bld) 17.8 % . [facility] MCH Auto (RBC) [Entitic mass ]Ordered By: Natacha Hess on 08-02-2022 MCH (RBC) [Entitic mass] 27.9 pg 27.5-35.2 [facility] MCHC Auto (RBC) [Mass/Vol]Or dered By: Natahca Hess on 08-02-2022 MCHC (RBC) [Mass/Vol] 33.1 g/dL 32.5-35.6 [facility] MCV Auto (RBC) [Entitic vol] Ordered By: Natacha Hess on 08-02-2022 MCV (RBC) [Entitic vol] 84.5 fL 83.5-101 [facility] Monocytes Auto (Bld) [#/Vol] Ordered By: Natacha Hess on 08-02-2022 Monocytes (Bld) [#/Vol] 1.5 10*3/uL 0.0-0.8 [facility] Monocytes/100 WBC Auto (Bld) Ordered By: Natacha Hess on 08-02-2022 Monocytes/100 WBC (Bld) 13.8 % . [facility] Neutrophils Auto (Bld) [#/Vo l]Ordered By: Natacha Hess on 08-02-2022 Neutrophils (Bld) [#/Vol] 7.0 10*3/uL 1.8-7.7 [facility] Neutrophils/100 WBC Auto (Bl d)Ordered By: Natacha Hess on 08-02-2022 Neutrophils/100 WBC (Bld) 65.7 % . [facility] No Panel InformationOrdered By: Natacha Hess on 08-02-2022 Adrenocorticotropic Hormone 14.8 pg/mL 7.2-63.3 [facility] Comment on above: ACTH reference inter chelsy for samples collected between 7 and 10 AM. Performed at: [facility] [address] [id number] [place] Administrator: Shar Rose PhD, Phone: [phone] Estimated GFR () > 60 mL/Min [facility] Comment on above: GFR estimated refere nce range: According to KDOQI guidelines, <60 ml/min/1.73m2 is sufficient to diagnose a patient with chronic kidney disease. Pharmacy Creatinine Clearance (Chem 72.92 [facility] Platelet mean volume Auto (B ld) [Entitic vol]Ordered By: Natacha Hess on 08-02-2022 Platelet mean volume (Bld) [Entitic vol] 7.4 fL 6.6-10.1 [facility] Platelets Auto (Bld) [#/Vol] Ordered By: Natacha Hess on 08-02-2022 Platelets (Bld) [#/Vol] 404 10*3/uL 150-450 [facility] Protein [Mass/volume] in Ser um or PlasmaOrdered By: Natacha Hess on 08-02-2022 Protein [Mass/Vol] 6.2 g/dL 6.1-7.9 [facility] RBC Auto (Bld) [#/Vol]Ordere d By: Natacha Hess on 08-02-2022 RBC (Bld) [#/Vol] 4.34 10*6/uL 3.90-5.60 [facility] Random cortisol measurementO rdered By: Natacha Hess on 08-02-2022 Cortisol [Mass/Vol] 7.3 ug/dL [facility] Comment on above: Reference range: AM 6 - 24 ug/dl PM <10 ug/dl Serum or plasma alanine qureshi otransferase measurement without P-5'-P (enzymatic activiOrdered By: Natacha Hess on 08-02-2022 ALT No additional P-5'-P [Catalytic activity/Vol] 21 U/L 10-60 [facility] Serum or plasma albumin/glob ulin mass ratioOrdered By: Natacha Hess on 08-02-2022 Albumin/Globulin [Mass ratio] 1.1 {ratio} [facility] Serum or plasma alkaline goldie sphatase measurement (enzymatic activity/volume)Ordered By: Natacha Hess on 08-02-2022 ALP [Catalytic activity/Vol] 35 U/L 32-92 [facility] Serum or plasma anion gap de terminationOrdered By: Natacha Hess on 08-02-2022 Anion gap [Moles/Vol] 12.9 mmol/L 6.0-15.0 [facility] Serum or plasma aspartate am inotransferase measurement (enzymatic activity/volume)Ordered By: Natacha Hess on 08-02-2022 AST [Catalytic activity/Vol] 15 U/L 10-42 [facility] Serum or plasma calcium aletha urement (mass/volume)Ordered By: Natacha Hess on 08-02-2022 Calcium [Mass/Vol] 9.3 mg/dL 8.2-10.2 [facility] Serum or plasma chloride valeriy surement (moles/volume)Ordered By: Natacha Hess on 08-02-2022 Chloride [Moles/Vol] 104 mmol/L 95-114 [facility] Serum or plasma glucose aletha urement (mass/volume)Ordered By: Natacha Hess on 08-02-2022 Glucose [Mass/Vol] 113 mg/dL 70-100 [facility] Comment on above: ADA recommended refe rence range Random Glucose Reference Range is dependent on time and content of last meal. Glucose of more than 200 mg/dL in a nonstressed, ambulatory subject supports the diagnosis of Diabetes Mellitus. Serum or plasma potassium me asurement (moles/volume)Ordered By: Natacha Hess on 08-02-2022 Potassium [Moles/Vol] 3.2 mmol/L 3.5-5.1 [facility] Serum or plasma sodium measu rement (moles/volume)Ordered By: Natacha Hess on 08-02-2022 Sodium [Moles/Vol] 139 mmol/L 136-146 [facility] Serum or plasma total biliru bin measurement (mass/volume)Ordered By: Natacha Hess on 08-02-2022 Bilirubin [Mass/Vol] 0.4 mg/dL 0.3-1.2 [facility] Serum or plasma total carbon dioxide measurement (moles/volume)Ordered By: Natacha Hess on 08-02-2022 CO2 [Moles/Vol] 25.3 mmol/L 22.0-30.0 [facility] Serum or plasma urea nitroge n measurement (mass/volume)Ordered By: Natacha Hess on 08-02-2022 Urea nitrogen [Mass/Vol] 18 mg/dL 08-06 [facility] TSH DL <= 0.005 mIU/L QnOrde red By: Natacha Hess on 08-02-2022 TSH Qn 2.94 m[IU]/L 0.45-5.33 [facility] Thyroxine (T4) free [Mass/vo lume] in Serum or PlasmaOrdered By: Natacha Hess on 08-02-2022 Free T4 [Mass/Vol] 0.69 ng/dL 0.61-1.12 [facility] Basophils Auto (Bld) [#/Vol] Ordered By: Natacha Hess on 07-06-2022 Basophils (Bld) [#/Vol] 0.0 10*3/uL 0.0-0.2 [facility] Basophils/100 WBC Auto (Bld) Ordered By: Natacha Hess on 07-06-2022 Basophils/100 WBC (Bld) 0.3 % . [facility] Blood hemoglobin measurement (mass/volume)Ordered By: Natacha Hess on 07-06-2022 Hemoglobin (Bld) [Mass/Vol] 11.9 g/dL 13.0-17.0 [facility] Blood leukocytes automated c ount (number/volume)Ordered By: Natacha Hess on 07-06-2022 WBC (Bld) [#/Vol] 11.1 10*3/uL 4.5-11.0 [facility] Body fluid albumin measureme nt (mass/volume)Ordered By: Natacha Hess on 07-06-2022 Albumin (Body fld) [Mass/Vol] 3.4 g/dL 3.2-5.5 [facility] Cholesterol [Mass/volume] in Serum or PlasmaOrdered By: Tiffany Dalal on 07-06-2022 Cholesterol [Mass/Vol] 169 mg/dL 100-199 [facility] Comment on above: This test was develo ped and its performance characteristics determined by [facility]. It has not been cleared or approved by the Food and Drug Administration. Creatinine and Glomerular fi ltration rate.predicted panel (S/P/Bld)Ordered By: Natacha Hess on 07-06-2022 Creatinine [Mass/Vol] 1.09 mg/dL 0.64-1.27 [facility] Eosinophils Auto (Bld) [#/Vo l]Ordered By: Natacha Hess on 07-06-2022 Eosinophils (Bld) [#/Vol] 0.1 10*3/uL 0.0-0.45 [facility] Eosinophils/100 WBC Auto (Bl d)Ordered By: Natacha Hess on 07-06-2022 Eosinophils/100 WBC (Bld) 0.9 % . [facility] Erythrocyte distribution wid th Auto (RBC) [Ratio]Ordered By: Natacha Hess on 07-06-2022 Erythrocyte distribution width (RBC) [Ratio] 17.6 % 12.0-14.8 [facility] Estimated glomerular filtrat ion rate (GFR) non- AmericanOrdered By: Natacha Hess on 07-06-2022 GFR/1.73 sq M.predicted among non-blacks MDRD (S/P/Bld) [Vol rate/Area] > 60 mL/Min [facility] Globulin Calc (S) [Mass/Vol] Ordered By: Natacha Hess on 07-06-2022 Globulin (S) [Mass/Vol] 3.3 g/dL [facility] Hematocrit Auto (Bld) [Volum e fraction]Ordered By: Natacha Hess on 07-06-2022 Hematocrit (Bld) [Volume fraction] 37.1 % 38.8-50.0 [facility] Laboratory - Hematology and Cell countsOrdered By: Natacha Hess on 07-06-2022 Nucleated RBC/100 WBC (Bld) [Ratio] 0.0 % 0-0.5 [facility] Low density lipoprotein (LDL ) size pattern determinationOrdered By: Tiffany Dalal on 07-06-2022 Cholesterol in LDL real size pattern Nom 21.3 nm >20.5 [facility] Comment on above: This test was danette chavarria and its performance characteristics determined by [facility]. It has not been cleared or approved by the Food and Drug Administration. INTERPRETATIVE INFORMATION PARTICLE CONCENTRATION AND SIZE <--Lower CVD Risk Higher CVD Risk--> LDL AND HDL PARTICLES Percentile in Reference Population HDL-P (total) High 75th 50th 25th Low >34.9 34.9 30.5 26.7 <26.7 Small LDL-P Low 25th 50th 75th High <117 117 527 839 >839 LDL Size <-Large (Pattern A)-> <-Small (Pattern B)-> 23.0 20.6 20.5 19.0 Small LDL-P and LDL Size are associated with CVD risk, but not after LDL-P is taken into account. Lymphocytes Auto (Bld) [#/Vo l]Ordered By: Natacha Hess on 07-06-2022 Lymphocytes (Bld) [#/Vol] 1.1 10*3/uL 1.00-4.8 [facility] Lymphocytes/100 WBC Auto (Bl d)Ordered By: Natacha Hess on 07-06-2022 Lymphocytes/100 WBC (Bld) 9.8 % . [facility] MCH Auto (RBC) [Entitic mass ]Ordered By: Natacha Hess on 07-06-2022 MCH (RBC) [Entitic mass] 26.8 pg 27.5-35.2 [facility] MCHC Auto (RBC) [Mass/Vol]Or dered By: Natacha Hess on 07-06-2022 MCHC (RBC) [Mass/Vol] 32.0 g/dL 32.5-35.6 [facility] MCV Auto (RBC) [Entitic vol] Ordered By: Natacha Hess on 07-06-2022 MCV (RBC) [Entitic vol] 83.8 fL 83.5-101 F [facility] Monocytes Auto (Bld) [#/Vol] Ordered By: Natacha Hess on 07-06-2022 Monocytes (Bld) [#/Vol] 1.0 10*3/uL 0.0-0.8 [facility] Monocytes/100 WBC Auto (Bld) Ordered By: Natacha Hess on 07-06-2022 Monocytes/100 WBC (Bld) 9.2 % . [facility] Neutrophils Auto (Bld) [#/Vo l]Ordered By: Natacha Hess on 07-06-2022 Neutrophils (Bld) [#/Vol] 8.9 10*3/uL 1.8-7.7 [facility] Neutrophils/100 WBC Auto (Bl d)Ordered By: Natacha Hess on 07-06-2022 Neutrophils/100 WBC (Bld) 79.8 % . [facility] No Panel InformationOrdered By: Natacha Hess on 07-06-2022 Adrenocorticotropic Hormone 4.1 pg/mL 7.2-63.3 [facility] Comment on above: ACTH reference inter chelsy for samples collected between 7 and 10 AM. Performed at: - [facility] [id number] [place] Administrator: Shar Rose PhD, Phone: [phone] Estimated GFR () > 60 mL/Min [facility] Comment on above: GFR estimated refere nce range: According to KDOQI guidelines, <60 ml/min/1.73m2 is sufficient to diagnose a patient with chronic kidney disease. Pharmacy Creatinine Clearance (Chem 82.29 [facility] No Panel InformationOrdered By: Tiffany Dalal on 07-06-2022 LDL Cholesterol NMR Derived 100 mg/dL 0-99 [facility] Comment on above: Optimal < 100 Above optimal 100 - 129 Borderline 130 - 159 High 160 - 189 Very high > 189 Total HDL Particles 25.3 umol/L >=30.5 [facility] Comment on above: This test was develo ped and its performance characteristics determined by [employer]. It has not been cleared or approved by the Food and Drug Administration. Platelet mean volume Auto (B ld) [Entitic vol]Ordered By: Natacha Hess on 07-06-2022 Platelet mean volume (Bld) [Entitic vol] 7.2 fL 6.6-10.1 [facility] Platelets Auto (Bld) [#/Vol] Ordered By: Natacha Hess on 07-06-2022 Platelets (Bld) [#/Vol] 461 10*3/uL 150-450 [facility] Protein [Mass/volume] in Ser um or PlasmaOrdered By: Natacha Hess on 07-06-2022 Protein [Mass/Vol] 6.7 g/dL 6.1-7.9 [facility] RBC Auto (Bld) [#/Vol]Ordere d By: Natacha Hess on 07-06-2022 RBC (Bld) [#/Vol] 4.43 10*6/uL 3.90-5.60 [facility] Random cortisol measurementO rdered By: Natacha Hess on 07-06-2022 Cortisol [Mass/Vol] 6.0 ug/dL [facility] Comment on above: Reference range: AM 6 - 24 ug/dl PM <10 ug/dl Serum or plasma alanine qureshi otransferase measurement without P-5'-P (enzymatic activiOrdered By: Natacha Hess on 07-06-2022 ALT No additional P-5'-P [Catalytic activity/Vol] 28 U/L 10-60 [facility] Serum or plasma albumin/glob ulin mass ratioOrdered By: Natacha Hess on 07-06-2022 Albumin/Globulin [Mass ratio] 1.0 {ratio} [facility] Serum or plasma alkaline goldie sphatase measurement (enzymatic activity/volume)Ordered By: Natacha Hess on 07-06-2022 ALP [Catalytic activity/Vol] 46 U/L 32-92 [facility] Serum or plasma aspartate am inotransferase measurement (enzymatic activity/volume)Ordered By: Natacha Hess on 07-06-2022 AST [Catalytic activity/Vol] 20 U/L 10-42 [facility] Serum or plasma beta lipopro tein subparticle measurement (moles/volume)Ordered By: Tiffany Dalal on 07-06-2022 Lipoprotein.beta.subpart icle [Moles/Vol] 1395 nmol/L <1000 [facility] Comment on above: This test was develo ped and its performance characteristics determined by [facility]. It has not been cleared or approved by the Food and Drug Administration. Low < 1000 Moderate 1000 - 1299 Borderline-High 1300 - 1599 High 1600 - 2000 Very High > 2000 Serum or plasma calcium aletha urement (mass/volume)Ordered By: Natacha Hess on 07-06-2022 Calcium [Mass/Vol] 9.3 mg/dL 8.2-10.2 [facility] Serum or plasma chloride valeriy surement (moles/volume)Ordered By: Natacha Hess on 07-06-2022 Chloride [Moles/Vol] 98 mmol/L 95-114 [facility] Serum or plasma glucose aletha urement (mass/volume)Ordered By: Natacha Hess on 07-06-2022 Glucose [Mass/Vol] 110 mg/dL 70-100 [facility] Comment on above: ADA recommended refe rence range Random Glucose Reference Range is dependent on time and content of last meal. Glucose of more than 200 mg/dL in a nonstressed, ambulatory subject supports the diagnosis of Diabetes Mellitus. Serum or plasma high density lipoprotein (HDL) cholesterol measurementOrdered By: Tiffany Dalal on 07-06-2022 Cholesterol in HDL [Mass/Vol] 45 mg/dL >39 [facility] Comment on above: This test was develo ped and its performance characteristics determined by [facility]. It has not been cleared or approved by the Food and Drug Administration. Serum or plasma potassium me asurement (moles/volume)Ordered By: Natacha Hess on 07-06-2022 Potassium [Moles/Vol] 3.5 mmol/L 3.5-5.1 [facility] Serum or plasma sodium measu rement (moles/volume)Ordered By: Natacha Hess on 07-06-2022 Sodium [Moles/Vol] 138 mmol/L 136-146 [facility] Serum or plasma total biliru bin measurement (mass/volume)Ordered By: Natacha Hess on 07-06-2022 Bilirubin [Mass/Vol] 0.6 mg/dL 0.3-1.2 [facility] Serum or plasma total carbon dioxide measurement (moles/volume)Ordered By: Natacha Hess on 07-06-2022 CO2 [Moles/Vol] 27.2 mmol/L 22.0-30.0 [facility] Serum or plasma urea nitroge n measurement (mass/volume)Ordered By: Natacha Hess on 07-06-2022 Urea nitrogen [Mass/Vol] 15 mg/dL 08-06 [facility] Small low density lipoprotei n particle number measurementOrdered By: Tiffany Dalal on 07-06-2022 Lipoprotein.beta.subpart icle.small [Moles/Vol] 619 nmol/L <=527 [facility] Comment on above: This test was develo ped and its performance characteristics determined by [facility]. It has not been cleared or approved by the Food and Drug Administration. TSH DL <= 0.005 mIU/L QnOrde red By: Natacha Hess on 07-06-2022 TSH Qn 1.92 m[IU]/L 0.45-5.33 [facility] Thyroxine (T4) free [Mass/vo lume] in Serum or PlasmaOrdered By: Natacha Hess on 07-06-2022 Free T4 [Mass/Vol] 0.75 ng/dL 0.61-1.12 [facility] Triglyceride [Mass/volume] i n Serum or PlasmaOrdered By: Tiffany Dalal on 07-06-2022 Triglyceride [Mass/Vol] 132 mg/dL 0-149 [facility] Comment on above: This test was develo ped and its performance characteristics determined by [facility]. It has not been cleared or approved by the Food and Drug Administration. Blood anisocytosis detection Ordered By: Natacha Hess on 12-04-2021 Anisocytosis Ql (Bld) [place] [facility] Anisocytosis Ql (Bld) Blood anisocytosis detection [facility] No Panel InformationOrdered By: Natacha Hess on 12-04-2021 Platelet Estimate Increased Normal [facility] Platelet Morphology Comment Normal Normal [facility] RBC morphologyOrdered By: Arnoldo Hess on 12-04-2021 RBC morphology finding Nom (Bld) N/A [facility] Glucose Glucometer (dC) [M ass/Vol]Ordered By: Natacha Hess on 07-22-2021 Glucose [Mass/Vol] 108 mg/dL [facility] Comment on above: Random Glucose Refer ence Range is dependent on time and content of last meal. Glucose of more than 200 mg/dL in a nonstressed, ambulatory subject supports the diagnosis of Diabetes Mellitus. Coding Summaryon 06-26-2021 Coding Summary HTMLBase 64 NypykskyFJc2uTo+PGhl YWQ+ZW2PZVGeJ46ouINk rS5WD4iYBS3BGYVSRYWF VT5DEG2gmTP9NMaqV9Lk biAv FimoxTSkVD06OFx4FTU9 sSdfXPfdkB3mrWWcY2h1 LpUqES53aF00ZTpoMAZy PvA5WbYfrwibjJBt T4ekMgNzqMPmNjo+PHRh YmxlIHdpZHRoPScxMDAl JfRkyWtxER6xOt2tTGNe LWNvbGxhcHNlOiBj z2wmVYTzPJryUS8npYcj J6VldYM1CEQua6c0As11 dHI+WIEpLDQ6kCgvYZel c989XcEtj7jtZCG9 rHNvISazWFB4I81oq2O9 IPTvVLMnPBC1fHI8jQ9n bTusveixT8LorCLaBfV3 MLV1kWOocA5awAdz oxkusK4wYuh+A52MVY5W TTUAKT5RAfl8Q9BkGeyi dHI+MQ85LSQbKU77dDOw rAEyo3qdkZu7GnZt YPVyNJO5uFffCHxxm3Gz UGFxH52ilWZcl5M6YWYg uVppbOStKdTchMB2jB6r YOqtvqune0wekjbi Yzxza9dqub96eC51V57w FXrfQAOvPFN9VXBtJBVi aEmgyh9egS5qFt7+IDxj u0mld4kvhJt5HlZp DBEzslKpzDvsRQP1c9Ni Sq17Y0KcaFfio5UiOtu8 nh77fRItl4L8fXK3JLqk YMKmtS1qYYnsWoO5 EINwLbWleI90yDUnGRza Zm1xuTuyfHqvXN4ySIXd vlqxAJLnbN2qYCBtmKRw uWigVB7gJUGcleii s797XkOmYGH8LIIrzIFd B3HmyD2hIyJsMPZjXBEf S7StbIViMCdaT680GWyr NcF7TVTwrgGkD5Zt IRLhoCblXxO5f3T5Lz0L v1MclidzYQN4IDntDIE5 WdUiLsVkFbA8C6JbAra8 KGLyrXfrSQ2tD6Wn PYHogjfxjjqwgRD9MZWy CNTkiJ83vTGnSXsoAp6m v1O1q159LAXdPKRhqQ86 Qz8xhAkjYSUcoUNP wP5vtsfcu9oqfrkdFaMf UGXcWIf4ZZt4LVBzjQhs EyIgQBQ8KaT2RNR6kSAx eL6tqEbqwqhryH1h Oyc+J17fgZ3jIEO2TXH2 mgzqMRGilcQzQS10NK55 Z9LxWihfdSWilQX+PGRp baNxmBxtYO7nFzKt j8obd1KgTHeaY4WhEBOr GMftDok6RXZtPPG1lQK2 fQ3qQGGwULglx9K2uXL7 Y5UtwxGjwb6tf2uc BRAmVKbfL12itFHkp9Z8 MHPqpHV3NVWvpLojWkWk vA52Pow+EEDjxUbax1Kk Vootz6brc5nsrHh9 IjMwJSIgdmFsaWduPSJ0 z3NvWr39G75iDWdkOWZr IDKuRGQyMKBdvJelsc4g rJ0pDt6+PGNvbCB3 cOQ7gE8rMNPhGvP5ZYjf E124GhXicSRoJnzhz8dp t0uftPh1HsGmOZEpudSz oWhjUBS9k9GxTr70 C64qPHgfBSEpMOZeLQRn PJAvpVgakl9emL4pRa7+ VA8nb9gvwb27tR50kMA+ HMLlXCL9fUxyXMyy MPAesO1kFBpcDnK0MWYm TuVarH50hDUrKDkzZg1v hAvptGujSA0qBXSowlrt i427BcIcg8bhAKQf wFKcCHxxBEA7M44pv6S2 MFFwWGEoJCP6rGN7qU5b bGlnbjogbGVmdDsgdmVy xKjeHDstYSntT534 IHRvcDsnPlBhdGllbnQg RoRfGAf6P6UzDuv3ZEIm eNvtZS1mhVBtRKfxPv3b gApzbMifUB0oKHOz ovhue304FeXyt4ajAZDc zZKwWHkaGLW4U70yq4N8 TZPzPKFcKOK5fRT8cE9d bGlnbjogbGVmdDsg feTozZepWLteFMshJ252 IHRvcDsnPkJpcnRoIERh sDJ7RK96DQ08nOBlm3T8 fLW7B8HmQSBxfzsp cicclLW7ARMvIQLchD62 Db8hyWzhLt2wYFVqWJP3 WTQprRFsG1PpsS9sUsPv NAAvNHUzI1AhoOMm LEjqR693GYadLtZ3FUFr mjFiI8MkZYUqmIjqElK6 j4U0Gf6GS5Z9RJ16PB24 aMRvj3O6iSK5S8Ft BWQjvqdkfyyvvQE5SELl QORpyL68Se0etUvzXf7s PTMsUHG1QYKvdVHtH0Lz xE9bRlLjMGCkMPPt Z1BylRSuSTedN447GYic YbC2OLAeeyDzC5GvVPCy fVpkBfZ0t6K1Ge9USTd6 RN22LH89iCInb3R3 oUT4Q1OcSBIiwpyljykg bKN0EBVxZSJjgX01Ox7e rBzbQp0iKYPsNHY4ESDs wQLaV1QknS7gHrGt OBKyQDFvW0BybXKfFRrl D482DOasBpQ5RQOftyFj X7HnQJTbcHhhFvT0f4S0 Ni8STUPsRG63LVW3 fRJ3AY66VP16Q6ScYqfc dGFibGU+PHRhYmxlIHdp ZHRoPScxMDAlJyBzdHls DO6oLd0bQWQsEHNr kZpxnBObXpUhg6ghTOSp LXkqFI3kkPvgT9ZehWO1 WVImo1c4Ac99M38wO8Gh dXA+HDEeoME1qHG2 zJ5iPlEcMkI9WKikO789 IoCjwDMkWqdio6ifs7jo nZl7BcY9QUUsocPoqPno FHF8n6MmUc81Y00o IHdpZHRoPSIxNSUiIHZh eKxbip0nfW2mAd3+PGNv sTD5jWG4pV5tYmPhVmN7 UFrnG439QeJgcJTr Hfibp0fii0mznFh9UfXu GUYtzjJlgJyrMBA1e5Lx Iy10X2HcxYzme9AcGqr9 ml69pNFjz8V0hIW0 V6NrRCGnvnyegAWcbOhb BT9mPTGwaetaQVEfiF5h DKZgG5q9UcCsZnO5XPdd A7WmufE5MTBreWNr PObpENT1K90kp3H8TNVw WVIcVRX0iNX9kY3ghYhw bjogbGVmdDsgdmVydGlj SAqtVPykO920FIQa nVbaOBWogG2eDYRtjDOn qFtuWW4cVCZpmndjOaDT SUxMWSBTUiwgREFOTlkg QTwvdGQ+PHRkIHN0 xCsxWBdbWZFxsV3zONVj N0e6AbXoBzX5VZnnF6Lv NGEuqwzoUf84zL8gAeQz EdZ2WNnzX7FkirO1 EBLfdWRrOSeuCXG6S02k p5O2EXLnXQYfTBU2vZI7 hO7xvZolysfkpJMzpHlb dmVydGljYWwtYWxp B383UBBooJihCtCjQnD1 PhY7XXE3Z7PdSli0NKHi vXqiZO3hcDBmDTbyHn2h uZemjEggNS7uCQUj knfrXFSvtV5aVJTgmZWy nGdgXO4nASBemlvex205 YbObFGW2SYUapMXkG2Js gW8bChUiZHJmRKXv F3WbsFIfMOhvR349CDje UdI0EFFaeaKcO4CyIQZx oHxvGsG0f5O3Gp36IDUY ZWFyczwvdGQ+PHRk ELO7gRlbEDkrSPDpmY9j QIUmN6y1VlOqWvT0KIuq Q6UdULIpkszjZi96vD6g SyPaJrZ0RFnwX7Yr hoI7EZZfbXMmSDjiDHN4 W55xa0H0VWNrAWYpCNS5 jYH4aJ3ctYmjoswajPAf dDsgdmVydGljYWwt UZepT279FLSeqRwbKc4S STC2I3QuOdc4VHFxuItr BV8rzOUoWKmiNh6zoSep zRxiTB7oCVMigffh PTEgjO1dYOOrcCYqaIel LP6iIYHgdgpzh654RkRz GHY1BGIuuTWiY7XlnW4c BmCkUUOhLGFoE8Tx bZJeERdcQ258FNfnKjN1 ASJcxbKeI5OjSGNdqHti DyT8f0C5Ku2AQPapxKN+ JF57vz95F3JfKxes Cwj1UCFoJTU7xQW6cE4v CRGzQJggv9I1dFX3Q0Gl ccAaub1md3ytHLVnNPtm E98wqIXis4F8ERJc gDW2JQZfsZwpGvSgyR87 Oyc+DFZsqDlor5CwSqtl r3yjr6vwcHd8XvTiXXMs nfIriFcfMSB3y0Gd Mo90Y64aCIkdCPVyIHOv MQWnIJTmtRnozz9vbL9e Ii8+QKOqqWG2cQP3rD9r CbRiDdD3PZhmK796 JrEfyHMpDtoog7wdj1fw bLy6KwTsFNZxrbPwjYee PDH6l9JaKg25H3NxkSen f9SwMqz4na45zBRx n2A9zXU1F0DbTDPnbnux mGFarSlnPF2nBPKfgmpn YAVoaC0aNEMcL2h6VvJu IqC7LPrwW5ZokxR5 MHDbqJQxYSIkmSEOjK5h ftmcy9ftwkxhIfVbDAAd OHx5FVy6MFEpfJszYeHs BAI0VgH3KOW4hFWt hW1oaJqnaabihK4gZjw+ ZNg5s5vxwTQwGP5quEG8 OY02KX45jUPuw5Z7yUR6 U6ZkHPCdtttkezvh xQG3XKSiYFWiqO09Ik3x zTmqOq2xOWCjVOL9BAXf pEYvS2ZecE9uMjOlDMJk GZIkK8DroDLhBOqn P452KJasIcR9DQXtecZq C5EbYCZaaIgpOhF7w8H0 Mf1MKA20NB64PJ54xJFd w4D7sJN1O2ZtFYKo vbarwlmeeYH8EAFxYCPx lU64Mt2gaKrxUd3sKSHp OQY3AGZvjDTxD9BzpG7o FlFqXZNhKQZmB5Vg dWXgHBzcM850CBshMxB6 MRCoszTuJ5PqRERoaHzc ZoU1g0K2Ln1HTi13PV77 NJ80kJCok0X1rWR2 L8TpSBUxuvyqqbkwhPT2 XHBgOXLewO28Fq5veCtk Jp9aRZViHJY0LPEijMJt N6CnqJ2aGzLkBSUr BWLeY5NteNXrQAjzB383 HRwaFxZ5EYDkymNmE1Ye BRJkqTcoZvA5x3W5Yz6H JTipsdl7C6YxSqkj dHI+MB69ZLYaIJ16yDIi pFRhu0eutSv8GkAyKLIq FVY3rVyeUExfp8VlICYu J09hxNLla2Y4TSIb bGx (more content not included)... [facility] Coding Summaryon 06-25-2021 Coding Summary HTMLBase 64 HhncraylLCh8xTp+PGhl YWQ+AR8VCLQgJ14hzVSc wE5AF5tKQM0JIYFWHQGX BP3WHS2xzPH6MZtoH7Am biAv ZsoyvKKeMA06RQd4TDT8 aJtyORdlkC4zyURhY8p8 FfWuXN09iU71ENlrFYNe CwB0AsKauqeibTOz A1fyZvCvgJVtGod+PHRh YmxlIHdpZHRoPScxMDAl GgXxtHwbNK1yWh7eTHHk LWNvbGxhcHNlOiBj f3zfFIZsAFwcEX9zsIhd R1CyxBP3POSzo8v2Cy19 dHI+GWIuCOI7pHtjRHxb g458CqErl3vvPMR7 sEKeERfjLOR2C26gl8D5 VXLsPCZtUJY9aKC0eQ7r kDlzpjhzE5PveAMwDkL9 FCJ9rRRfgV7xuLsg grqiyN5kWuz+E51QUH6M HVEUOV7UVdr5C1PrOgsh dHI+ZH51MLYiDW43lOKk xLWlj5lnvYo0YrTl HQEbUGB3cJhwBDtzo6Ry PTFkH65ewSCcm7A1AIAs eJaduTMtOkOhtMQ1gA5b JNgdqfkus9quxxvw Gmvsm2vceg98sO13V47u APuvZIXhWBO7XTKkMGGj lTfqas7xdP4xGh9+IDxj o1xvx6zfyLu5YaQl GZXuoeFutHbsPZD4u5Lc Cg54C1UuqZurh7FaExh9 je71hHOim7T9qSN2LBfu INXenU5vTIkdKnR7 LQLsMkPgsM20jBDzVWal Jb3irRkbbMbbZS3lHQFj yysrQNCddQ3bOPOjcVYf zUxzQE5lPQRdhflg s607IgWpNNN9QXJbfCOi S7ZwsV6cIlOuHYMdBEBh Y8KltMEjMHtnQ558TBot MkT1QCLkqbCwK6Et FUXupQobWoU5m3M4Ob7T d4HhzkilBDR4PQfcOHD3 OqTwVxMiNyG9K3WyZid7 TNRbfHluTW8sZ1Hx GZRieomdfxstpXY8JMEm NZXwhS19qYAdTYtkNc9o z4F7b260GWKlQNWhnC80 Kv0wtEuaXZHnwATB nY4fiqgvh0vqpunoAkHv HRXbSBo3GQa0IPIbvIcy BfNaPUD3AnJ4ZNL0rKRl fQ1cwMtlphvjbI9z Oyc+V58csS3dSQO1ZMJ9 ijncZNSghuCaLA54RA23 Q7KvTeqgiBBulKX+PGRp rxIsrOwiES2pYkVo t0qdv3WrKBeyA4VjTBSm VBcqPeb0TIIrBDS8pCF3 cS8ePYHrEGzis4Q6vNK2 Q9EjhoAnhx9kg3oz SWVnLWqpO67jrPOsy2H5 EHQgtMY8NZFtiVmwHoQq zV10Nih+SQNpsAlhi9Ei Tckds6cue8xnlBz1 IjMwJSIgdmFsaWduPSJ0 j5AoYy70J55pQBtbVSLx TLIjUFAjVYYrzLuxgq7c oK9lNr4+PGNvbCB3 yXR6uC5wTZJhDoC6IHky E501NrXliPXcRiail4gu n7xgrKa7RhBkPYBycfDl rQgxCBA1j1OnIa67 H59pNZqvLRFnWUAwWVOq JDLzlOmuen9dkQ8xUw4+ KO5gq7zheo07mB10yAC+ KHByXHK9rUmzHUew RYBtnY7mXDubZtF1KZWw SjHauO79yVTlJGpnDs5n jBcbqCpyLP2fNYWjffjd e641ErQht3viNYFx pMEgZXivUIE1P86dv7E5 VHTfCHGdPBD4yNS3hV9j bGlnbjogbGVmdDsgdmVy eHxsEWqfEDvaR123 IHRvcDsnPlBhdGllbnQg FlUqBPd2S6MeArw0YNSy uEhbJT7eqPFxPApeQq9v cWresWdyDN2tRQTg mnjuw128ViOsy4owLWMp uLRrUXqpEYN5S08eb7P7 KXVrUFHuFHW3mQZ1bV4j bGlnbjogbGVmdDsg glNoaTxwDKibIXheC304 IHRvcDsnPkJpcnRoIERh gMP8YG49LT69vVNxz9G8 wXJ6H2QqLNKxtbty trctlKX2UPIoFJCtbG80 Uu6xzFmyNb0eUZMdJCL3 OHZxcPHfM7VbcI5hNvYh YKZyTBMbL7GhoJQa PLgfO185OGgoGrA1IYZd soFeK1GvHYMkaVfeFsP5 l7I7Sr9AO3I1YF18XX32 kXJxj1R9wYH5Z0Vs DPRnpqbxrcvhsHA5NNRh PJPcmJ55Gx2rjUdnZq6q QZYzXOO0HLZiaNEdK0Es jZ7cKsKqOEQhEDGz D6ZnqHMzYDrmF391FHae DsF2BGXjtgHoW0PhEJOe xIjzNdI5k1H7Nd8FNIp8 EE67EI27hNPrc2J0 kTY6R1PqDZDqfsgydpho wUK6GNEqCMBnoL93Eh3v qIitXu4aXFTmRDU5CBNt jZUiV1CwaY4iCyXs GQMsZAGlS9VdqSAnCKen J091RChpUzY8AOAkphSu M3SaWOIcyHiiXmK9j2Q2 Fv9JWSAyGW15VYN7 xYJ7NA04TK63B0IrOnzq dGFibGU+PHRhYmxlIHdp ZHRoPScxMDAlJyBzdHls AD8wVh2yPBZfBMXm bJeziBLcEzEjc3lxVLEj NHumLX3prEocI8DohOR7 ZPItp0v3Sd25Q81sR8Sp dXA+PVIkcJR1aBE1 zP6gYgLlXlQ3ZKtqL303 LvCooHDbTlfmi1qjc5hm hOv6MaC7IYKessKohTlk LBC3k7BjLr26J48j IHdpZHRoPSIxNSUiIHZh hJqonq9feU9qCe6+PGNv nSK1aZQ1wE3rVzTeViH0 GYcjG034ElKyvQRr Lcpxd9vkh0zvwAg7XrJy HEEkafBhoJwuTZP3p3Em Uo63H9QofUhpz9NzKqd7 bs10vCOgu7Q0wRO0 Z2AnIJVdkhgbcXLzvSer IC6eICUbykwdTRWrwJ5b ZVElL0b8PtLeTxH7ZZzj W2ApnjP4JBRmnSDq TTijHOD4U60uf7C4VKCd BIDkNEJ5vRB3iQ9sjZle bjogbGVmdDsgdmVydGlj TAcuWMfwU996AHJb wBdrYDZwxJ8pZYWfsHIl wSgjZY0mRFQkerbdYyGG SUxMWSBTUiwgREFOTlkg QTwvdGQ+PHRkIHN0 nHtdLIacPXEsfG5nTGWh L8a4WvZgDfZ2OMcyY6Ih IOSusottRj72lT3uUzVg SfK8ADipK0WnvvI8 VTFwiAFxAXxsMGP6W55e o2Q2QYUiFPPfIFJ1kMB8 xE1vvAiajzwbcIFwkAcr dmVydGljYWwtYWxp K508QNEaeOloYjWvNkT2 HeY7ABH0E6SmJvl6JWUc wDdsHX4exHPxYAgiQy0z aKkboDhmTN4lDTFl olsfFEEciD1tAVQheMBp xJzpXY6jNWLofhjcp640 NjKwDIC1WZRxpPXuB9Ed lB9nMdNiKOYfLXCk U8HaeYAlHWmrW346UByu SkR5QIEpzbXlI9UkGFEq kGgqMwW4a8N9Er38SYCP ZWFyczwvdGQ+PHRk KCY0yJzzVPlmAGWtrQ9w HYDcL5b8PqJqBjM9PFvp E2JrWJJuoprgJm12gZ3h KsLtLdV2MYzsF1Dl zrT3FZDogNZtMMwwACM3 X16hq6T9MMBeHBXaWDI0 sVL0sO1ppSmufmzceRFu dDsgdmVydGljYWwt RKpyN095ZOQsaTqdMd7S TVG1B4MsCda3ASXhyEvz WI3aaQVaHOmoAe4hsOkx lYfiAG2lXZTrfwsg LTSahV5yRTMpyOOpzZuv CG2wRAVzuczwe028QoJy BDX4OLShkVYiF1UaaA1u LxMpKLLfVHMtG3Ub kJKoXMufG446CSolSoM2 OZAyomUkP6IvNNLnoYye UvA8b0H3Fz6PDOsarLH+ VA51pl67M3OeDuis Hew1AISmBJR3sOV5aC7o QNVsYJzdd8R2sOS1N1Yv jpCuas3zk9fnZQDqMUjj A37bsILln7M7RVLh cPW2RDYerGguIhDinL27 Oyc+YXZkpGeqv0RrZoui s4xwj9ujoGu4GuFqORTk apHkkMyrIOV8p9Gr Bx69J90lJOglHNEnGEGw KEXkNVXleHeyhr4agS4l Ii8+PRHqsFF3sRM4iR9e PoVxSxI6KPvsR711 TvZgfTGhZfzia2vrh6da xHu3EeImXTFijcLrhMsy ADS7x4EmAr19S6WlsPoa u2LjXmr9cp49xFCb k8H3aCH1C6HoJZWjfhjs xATyoTyrRG8iFOOgclio TQDypN8rAOChY9y0EoTa OpA2SIyfR7SucbI9 UZUauDZyELVypPJXlR2g yfgbz9kiwrviVkSmRYHj RBo6KJz4PHArsNuuWfKp YGI9CeX3BDS1dCEv tE6tbXdvmnmmpE1bQue+ NSr3c5jgmVFvPJ6umVU7 FX07KD06eVTcu0K9qPG2 K1JoFUNdpwznieqz wBV8FNRtNIQecS84Jp3g gMqoJe1pAOGmBRD7KGWm nHQgB3FiiX7pRqTsWCMj NMEgW6YjlMRsMYne L658RLnuIhO0YXSaydKz M0UlKXGjbVmoCfI4z7S3 Ix1SIJ15EM91BM95zTDp q1R0qIK0G4NsZPYp juissmiqlYD5JSJfGRSn tL31Cu0pjWdmHf4pFZFo HTI0GMAzmOXuL5ZxbG7y JgXuGWJuVNBwU4Ra hDPlPUryK561RXgoGjG2 VDNxebWmI7AlPBNuzFds GkJ1e8H6Qt1HEz43ML05 VE68eXUxk1B4kPE3 A4DzTGKqgyryfvskrLT2 ZUWeXGSdxI36Pm6mqAvn Br8qUKShSBK7FICntZYy F2VleJ0oEkQiDOYb LZMaB7NvmJMvGMjmM619 PIqaMwT0NHWtgcWoO0Vn TOGjdCvkAsY6r4G1Bu4N GSicvky0H8NtCgoa dHI+DS72TTThPU72xQIq nBAfk4evcGw2IdDxBYZe BPT5wKywFGufx6XzJRHw S00rrFEsk9W7CMZf bGx (more content not included)... [facility] Consent Formson 06-24-2021 Consent Forms [id number] #[id number] [facility] CT Chest W/Contraston 2020 CT Chest W/Contrast EXAMINATION: CT Chest W/Contrast HISTORY: MID RIGHT LUNG MASS; DYSPNEA, UNSPECIFIED; COUGH. COMPARISON: Chest study dated 06/18/2021. TECHNIQUE: CT examination of the chest following the administration of intravenous contrast. Coronal and sagittal reformations were performed. Dose reduction techniques were achieved by using automated exposure control and/or adjustment of mA and/or kV according to patient size and/or use of iterative reconstruction technique. FINDINGS: No obvious pulmonary emboli. Mild atherosclerotic calcification within the thoracic aortic arch. No evidence of thoracic aortic aneurysm, dissection, or leak. Calcified subcarinal lymph nodes in the mediastinum as well as calcified left hilar lymph node likely related to granulomatous changes. Moderately enlarged right paratracheal lymph node measuring 2.5 cm in diameter. Other mildly enlarged mediastinal lymph nodes. There is a mild to moderately enlarged right infrahilar lymph node measuring 1.8 cm in diameter on series 2 axial image 59. Shot-sized axillary lymph nodes without anny adenopathy. Large solid mass with lobulated margins seen in the likely superior segment of the right upper lobe extending to the hilum. On series 2 axial images 48 through 54 and series 601 coronal images 99 through 105 there appears to be invasion of the mass into the right mainstem bronchus. The invading portion of the mass measures approximately 1.5 x 0.8 cm as estimated on the coronal reconstructed image series 601 image 103. The mass itself measures approximately 5.5 x 7.6 x 6.0 cm in longitudinal, transverse, and AP dimensions. Mild COPD. Areas of mild reticular prominence in the right upper lobe superior and anterior to the above-described mass could be neoplastic in nature or represent areas of atelectatic, fibrotic, and/or minimal infiltrative changes. Areas of minimal reticular prominence in the lower lung joiner compatible with atelectatic and/or fibrotic changes. There is mild pleural thickening anterior and medial to the mass and possibly along the lateral aspect of the mass which is nonspecific, possibly neoplastic. No evidence of pleural effusion. Chest wall is grossly intact. There is a focal area of decreased attenuation within the right lobe of the liver on series 2 axial image 124 measuring approximately 1.5 x 1.0 x 0.8 cm most likely representing a cyst. There is contracted appearance of the gallbladder with a small gallstone. At the expected location of the gallbladder neck there is a more round fluid-like density measuring 2 cm in diameter, this is of uncertain etiology and significance. Postoperative stabilizing opacities at the visualized cervical level. Mild to moderate degenerative changes in the dorsal spine. Mild to moderate degenerative changes in the visualized shoulders. IMPRESSION: CT chest study demonstrates a large mass in what appears be the anterior segment of the right upper lobe extending to the hilum with apparent associated invasion of the right mainstem bronchus. The mass is assumed neoplastic. Reticular densities adjacent to the mass superiorly and anteriorly compatible with atelectatic, fibrotic, and/or infiltrative changes as well as neoplastic changes. Adenopathy as described, assumed malignant. Mild COPD. Likely a small cyst in the liver. Contracted gallbladder with a gallstone. Round fluid-containing density at the level of the expected location of the gallbladder neck of uncertain etiology and significance. Final Dictated by: Avni Vicente MD Dictated DT/TM: 06/23/21 3:22 Signed (Electronic Signature): Avni Vicente MD 06/23/21 4:41 pm Technologist: NENA HERRERA [facility] Provider [place] 06-23-2021 Provider Orders [id number] #1.00OTGTIFF [facility] Provider Orders [id number] #1.00OTGTIFF [facility] Provider [place] 06-19-2021 Provider Orders [id number] [facility]R Chest 2 Views EXAM: XR CHEST 2 VIEWS HISTORY: cough COMPARISON: Two-view chest from 03/23/2019. TECHNIQUE: Frontal and lateral films are done of the chest. FINDINGS: There is a large consolidation noted off the right hilar region which measures 8.3 cm in the midtransverse plane extending from the mediastinal/right hilar region to the chest wall. It measures 6.7 cm in the craniocaudal plane and approximately 8.2 cm in the mid AP plane. The remaining lungs are clear. Effusion or pneumothorax is noted. Trachea is midline. Heart size is nonenlarged. Diaphragm is intact. Mild degenerative changes are noted of the lower thoracic spine. Postsurgical changes are noted of the cervical spine. IMPRESSION: 1. Large mass in the mid right lung field measuring 8.3 x 6.7 x 8.2 cm in the midtransverse, craniocaudal and AP planes respectively. This progresses from the hilar region to the chest wall. This could be associated with a dense pneumonia but mass with nearby mediastinal/hilar adenopathy is probable. Recommend follow-up CT of the chest with IV contrast for further review. Final Dictated by: Salinas oCle Dictated DT/TM: 06/18/21 2:41 Signed (Electronic Signature): Salinas Cole 06/18/21 2:44 pm Technologist: Alfonso GUEVARA [facility] Covid-19 PCR (CVDTBH)on SARS-CoV-2 (COVID-19) RNA TARUN+probe Ql (Unsp spec) Not detected Normal NOT DETECTED [facility] Comment on above: Result Comment: This test is not yet approved or cleared by the [place] FDA. When there are no FDA-approved or cleared tests available, and other criteria are met, FDA can make tests available under an emergency access mechanism called an Emergency Use Authorization (EUA). The EUA for this test is supported by the [place] of Health and Human Service's (HHS's) declaration that circumstances exist to justify the emergency use of in vitro diagnostics for the detection and/or diagnosis of the virus that causes COVID-19. This EUA will remain in effect (meaning this test can be used) for the duration of the COVID-19 declaration justifying emergency of IVDs, unless it is terminated or revoked by FDA (after which the test may no longer be used). When diagnostic testing is negative, the possibility of a false negative should be considered in the context of a patient's recent exposures and the presence of clinical signs and symptoms consistent with SARS-CoV-2. Performed By: #### C VDTB #### [facility] [address] [place] [address] Paolo Corea RAPID COVID-19 ANTIGENon EUA Statement SEE BELOW [facility] Comment on above: Result Comment: This test has not been FDA cleared or approved, but has been authorized by the FDA under an Emergency Use Authorization (EUA) for use by authorized laboratories certified under CLIA that meet the requirements to perform moderate or high complexity testing. This test has been authorized only for the detection of proteins from SARS-CoV-2, not for any other viruses or pathogens. The emergency use of this test is authorized for the duration of the declaration that circumstances exist justifying the authorization of emergency use of in vitro diagnostic tests for detection and/or diagnosis of Covid-19 under section 564(b)(1) of the Act, 21 U.S.C. 360bbb-3(b)(1), unless the declaration is terminated or authorization is revoked sooner. Performed By: #### C VDAG #### [facility] [address] [place] [address] Paolo Corea SARS-CoV-2 (COVID-19) RNA TARUN+probe Ql (Unsp spec) Negative Normal NEGATIVE [facility] Comment on above: Result Comment: Nega tive results are presumptive. They do not preclude infection and should not be used as the sole basis for treatment decisions. Additional confirmatory testing by a molecular method should be considered. Performed By: #### C VDAG #### [facility] [address] [place] [id number] Paolo Corea Vital Signs Date Time Vital Sign Value Performing Clinician Kristinai tien 04-15-2025 11:44-0400 Body height 177.8 cm Shoshana Pablo MD Work Phone: [facility] 04-15-2025 11:44-0400 Body mass index (BMI) [Ratio] 34.67 kg/m2 Shoshana Pablo MD Work Phone: [facility] 04-15-2025 11:44-0400 Body temperature 97.7 [degF] Shoshana Pablo MD Work Phone: [facility] 04-15-2025 11:44-0400 Body weight 109.6 kg Shoshana Pablo MD Work Phone: [facility] 04-15-2025 11:44-0400 Diastolic blood pressure 72 mm[Hg] Shoshana Pablo MD Work Phone: [facility] 04-15-2025 11:44-0400 Systolic blood pressure 123 mm[Hg] Shoshana Pablo MD Work Phone: [facility] 03-22-2025 12:45-0400 Body temperature 97 [degF] Shoshana Pablo MD Work Phone: 6(996)069-621751 [place] [address] 03-22-2025 12:45-0400 Diastolic blood pressure 82 mm[Hg] Shoshana Pablo MD Work Phone: 1(152)552-302951 [place] [address] 03-22-2025 12:45-0400 Heart rate 89 /min Shoshana Pablo MD Work Phone: 4(399)001-721651 [place] [address] 03-22-2025 12:45-0400 Respiratory rate 20 /min Shoshana Pablo MD Work Phone: 1(647)235-369051 [place] [address] 03-22-2025 12:45-0400 SaO2% (BldA) [Mass fraction] 100 % Shoshana Pablo MD Work Phone: 0(349)923-931451 [place] [address] 03-22-2025 12:45-0400 Systolic blood pressure 140 mm[Hg] Shoshana Pablo MD Work Phone: 5(494)174-232051 [place] [address] 03-22-2025 09:13-0400 Body height 177.8 cm Shoshana Pablo MD Work Phone: 4(451)152-859051 [place] [address] 03-22-2025 09:13-0400 Body mass index (BMI) [Ratio] 34.92 kg/m2 Shoshana Pablo MD Work Phone: 2(081)723-146051 [place] [address] 03-22-2025 09:13-0400 Body weight 110.4 kg Shoshana Pablo MD Work Phone: 8(195)818-652751 [place] [address] 02-13-2025 15:16-0400 Body height 177.8 cm Alicia Ann MD Work Phone: [facility] 02-13-2025 10:14-0400 Body weight 112.03 kg Alicia Ann MD Work Phone: [facility] 02-13-2025 09:29-0400 Body height 177.8 cm Alicia Ann MD Work Phone: [facility] 02-13-2025 09:29-0400 Body mass index (BMI) [Ratio] 35.4 kg/m2 Alicia Ann MD Work Phone: [facility] 02-13-2025 09:29-0400 Body temperature 97.4 [degF] Alicia Ann MD Work Phone: [facility] 02-13-2025 09:29-0400 Diastolic blood pressure 83 mm[Hg] Alicia Ann MD Work Phone: [facility] 02-13-2025 09:29-0400 Heart rate 74 /min Alicia Ann MD Work Phone: [facility] 02-13-2025 09:29-0400 Respiratory rate 16 /min Alicia Ann MD Work Phone: [facility] 02-13-2025 09:29-0400 SaO2% (BldA) [Mass fraction] 96 % Alicia Ann MD Work Phone: [facility] 02-13-2025 09:29-0400 Systolic blood pressure 129 mm[Hg] Alicia Ann MD Work Phone: [facility] 02-05-2025 10:45-0400 Body height 177.8 cm Alicia Ann MD Work Phone: [facility] 02-05-2025 10:45-0400 Body mass index (BMI) [Ratio] 35.2 kg/m2 Alicia Ann MD Work Phone: [facility] 02-05-2025 10:45-0400 Body temperature 98.2 [degF] Alicia Ann MD Work Phone: [facility] 02-05-2025 10:45-0400 Body weight 111.13 kg Alicia Ann MD Work Phone: [facility] 02-05-2025 10:45-0400 Diastolic blood pressure 70 mm[Hg] Alicia Ann MD Work Phone: [facility] 02-05-2025 10:45-0400 Heart rate 76 /min Alicia Ann MD Work Phone: [facility] 02-05-2025 10:45-0400 SaO2% (BldA) [Mass fraction] 98 % Alicia Ann MD Work Phone: [facility] 02-05-2025 10:45-0400 Systolic blood pressure 102 mm[Hg] Alicia Ann MD Work Phone: [facility] 01-28-2025 09:41-0400 Body height 177.8 cm Shoshana Pablo MD Work Phone: [facility] 01-28-2025 09:41-0400 Body mass index (BMI) [Ratio] 35.27 kg/m2 Shoshana Pablo MD Work Phone: [facility] 01-28-2025 09:41-0400 Body temperature 97.3 [degF] Shoshana Pablo MD Work Phone: [facility] 01-28-2025 09:41-0400 Body weight 111.5 kg Shoshana Pablo MD Work Phone: [facility] 01-28-2025 09:41-0400 Diastolic blood pressure 84 mm[Hg] Shoshana Pablo MD Work Phone: [facility] 01-28-2025 09:41-0400 Systolic blood pressure 131 mm[Hg] Shoshana Pablo MD Work Phone: [facility] 01-23-2025 11:18-0400 Body weight 112.94 kg Howie Smith DO Work Phone: [facility] 01-23-2025 10:21-0400 Body temperature 97.8 [degF] Howie Smith DO Work Phone: [facility] 01-23-2025 10:21-0400 Diastolic blood pressure 87 mm[Hg] Howie Smith DO Work Phone: [facility] 01-23-2025 10:21-0400 Heart rate 87 /min Howie Smith DO Work Phone: [facility] 01-23-2025 10:21-0400 Respiratory rate 16 /min Howie Smith DO Work Phone: [facility] 01-23-2025 10:21-0400 SaO2% (BldA) [Mass fraction] 97 % Howie Smith DO Work Phone: [facility] 01-23-2025 10:21-0400 Systolic blood pressure 129 mm[Hg] Howie Smith DO Work Phone: [facility] 01-02-2025 11:45-0500 Body height 177.8 cm Howie Smith DO Work Phone: [facility] 01-02-2025 11:33-0500 Body temperature 97.9 [degF] Howie Smith DO Work Phone: [facility] 01-02-2025 11:33-0500 Diastolic blood pressure 84 mm[Hg] Howie Smith DO Work Phone: [facility] 01-02-2025 11:33-0500 Heart rate 85 /min Howie Smith DO Work Phone: [facility] 01-02-2025 11:33-0500 Respiratory rate 18 /min Howie Smith DO Work Phone: [facility] 01-02-2025 11:33-0500 SaO2% (BldA) [Mass fraction] 98 % Howie Smith DO Work Phone: [facility] 01-02-2025 11:33-0500 Systolic blood pressure 128 mm[Hg] Howie Smith DO Work Phone: [facility] 12-12-2024 10:45-0500 Body weight 114.75 kg Howie Smith DO Work Phone: [facility] 12-12-2024 10:20-0500 Body temperature 97.7 [degF] Howie Smith DO Work Phone: [facility] 12-12-2024 10:20-0500 Diastolic blood pressure 83 mm[Hg] Howie Smith DO Work Phone: [facility] 12-12-2024 10:20-0500 Heart rate 83 /min Howie Smith DO Work Phone: [facility] 12-12-2024 10:20-0500 Respiratory rate 16 /min Howie Smith DO Work Phone: [facility] 12-12-2024 10:20-0500 SaO2% (BldA) [Mass fraction] 94 % Howie Smith DO Work Phone: [facility] 12-12-2024 10:20-0500 Systolic blood pressure 147 mm[Hg] Howie Smith DO Work Phone: [facility] 12-11-2024 11:33-0500 Body height 177.8 cm Froylan Scott MD Work Phone: [facility] 12-11-2024 11:33-0500 Body mass index (BMI) [Ratio] 36.3 kg/m2 Froylan Scott MD Work Phone: [facility] 12-11-2024 11:33-0500 Body weight 114.76 kg Froylan Scott MD Work Phone: [facility] 12-11-2024 11:33-0500 Diastolic blood pressure 77 mm[Hg] Froylan Scott MD Work Phone: [facility] 12-11-2024 11:33-0500 Heart rate 81 /min Froylan Scott MD Work Phone: [facility] 12-11-2024 11:33-0500 Systolic blood pressure 158 mm[Hg] Froylan Scott MD Work Phone: [facility] 11-20-2024 11:09-0500 Body temperature 98.7 [degF] Howie Smith DO Work Phone: [facility] 11-20-2024 11:09-0500 Diastolic blood pressure 82 mm[Hg] Howie Smith DO Work Phone: [facility] 11-20-2024 11:09-0500 Heart rate 94 /min Howie Smith DO Work Phone: [facility] 11-20-2024 11:09-0500 Respiratory rate 18 /min Howie Smith DO Work Phone: [facility] 11-20-2024 11:09-0500 SaO2% (BldA) [Mass fraction] 98 % Howie Smith DO Work Phone: [facility] 11-20-2024 11:09-0500 Systolic blood pressure 131 mm[Hg] Howie Smith DO Work Phone: [facility] 11-19-2024 09:52-0500 Body temperature 97.8 [degF] Howie Smith DO Work Phone: [facility] 11-19-2024 09:52-0500 Body weight 115.66 kg Howie Smith DO Work Phone: [facility] 11-19-2024 09:52-0500 Diastolic blood pressure 76 mm[Hg] Howie Smith DO Work Phone: [facility] 11-19-2024 09:52-0500 Heart rate 86 /min Howie Smith DO Work Phone: [facility] 11-19-2024 09:52-0500 Respiratory rate 16 /min Howie Smith DO Work Phone: [facility] 11-19-2024 09:52-0500 SaO2% (BldA) [Mass fraction] 98 % Howie Smith DO Work Phone: [facility] 11-19-2024 09:52-0500 Systolic blood pressure 119 mm[Hg] Howie Smith DO Work Phone: [facility] 11-08-2024 15:02-0500 Body temperature 98.2 [degF] Howie Smith DO Work Phone: [facility] 11-08-2024 15:02-0500 Body weight 116.11 kg Howie Vasqueze DO Work Phone: [facility] 11-08-2024 15:02-0500 Diastolic blood pressure 82 mm[Hg] Howie Smith DO Work Phone: [facility] 11-08-2024 15:02-0500 Heart rate 95 /min Howie Vasqueze DO Work Phone: [facility] 11-08-2024 15:02-0500 Respiratory rate 16 /min Howie Vasqueze DO Work Phone: [facility] 11-08-2024 15:02-0500 SaO2% (BldA) [Mass fraction] 98 % Howie Vasqueze DO Work Phone: [facility] 11-08-2024 15:02-0500 Systolic blood pressure 143 mm[Hg] Howie Vasqueze DO Work Phone: [facility] 11-05-2024 10:53-0500 Body height 177.8 cm Froylan Scott MD Work Phone: [facility] 11-05-2024 10:53-0500 Body mass index (BMI) [Ratio] 36.3 kg/m2 Froylan Scott MD Work Phone: [facility] 11-05-2024 10:53-0500 Body weight 114.76 kg Froylan Scott MD Work Phone: [facility] 11-05-2024 10:53-0500 Diastolic blood pressure 87 mm[Hg] Froylan Scott MD Work Phone: [facility] 11-05-2024 10:53-0500 Systolic blood pressure 117 mm[Hg] Froylan Scott MD Work Phone: [facility] 10-30-2024 11:15-0500 Body temperature 98 [degF] Howie Smith DO Work Phone: [facility] 10-30-2024 11:15-0500 Diastolic blood pressure 84 mm[Hg] Howie Smith DO Work Phone: [facility] 10-30-2024 11:15-0500 Heart rate 76 /min Howie Smith DO Work Phone: [facility] 10-30-2024 11:15-0500 Respiratory rate 19 /min Howie Smith DO Work Phone: [facility] 10-30-2024 11:15-0500 SaO2% (BldA) [Mass fraction] 96 % Howie Smith DO Work Phone: [facility] 10-30-2024 11:15-0500 Systolic blood pressure 153 mm[Hg] Howie Smith DO Work Phone: [facility] 10-25-2024 15:39-0500 Diastolic blood pressure 80 mm[Hg] Howie Smith DO Work Phone: [facility] 10-25-2024 15:39-0500 Heart rate 85 /min Howie Smith DO Work Phone: [facility] 10-25-2024 15:39-0500 Respiratory rate 16 /min Howie Smith DO Work Phone: [facility] 10-25-2024 15:39-0500 SaO2% (BldA) [Mass fraction] 94 % Howie Smith DO Work Phone: [facility] 10-25-2024 15:39-0500 Systolic blood pressure 137 mm[Hg] Howie Smith DO Work Phone: [facility] 10-25-2024 14:55-0500 Inhaled oxygen flow rate 6 L/min Howie Smith DO Work Phone: [facility] 10-25-2024 11:48-0500 Body height 177.8 cm Howie Smith DO Work Phone: [facility] 10-25-2024 11:48-0500 Body temperature 98.2 [degF] Howie Smith DO Work Phone: [facility] 10-25-2024 11:48-0500 Body weight 113.39 kg Howie Smith DO Work Phone: [facility] 10-17-2024 09:30-0500 Body height 177.8 cm Wilmer Rodrigues MD Work Phone: [facility] 10-17-2024 09:30-0500 Body mass index (BMI) [Ratio] 36.59 kg/m2 Wilmer Rodrigues MD Work Phone: [facility] 10-17-2024 09:30-0500 Body weight 115.67 kg Wilmer Rodrigues MD Work Phone: [facility] 10-17-2024 09:30-0500 Diastolic blood pressure 68 mm[Hg] Wilmer Rodrigues MD Work Phone: [facility] 10-17-2024 09:30-0500 Systolic blood pressure 132 mm[Hg] Wilmer Rodrigues MD Work Phone: [facility] 10-17-2024 08:20-0500 Body temperature 97.2 [degF] Howie Smith DO Work Phone: [facility] 10-17-2024 08:20-0500 Body weight 116.11 kg Howie Smith DO Work Phone: [facility] 10-17-2024 08:20-0500 Diastolic blood pressure 84 mm[Hg] Howie Smith DO Work Phone: [facility] 10-17-2024 08:20-0500 Heart rate 96 /min Howie Smith DO Work Phone: [facility] 10-17-2024 08:20-0500 Respiratory rate 16 /min Howie Smith DO Work Phone: [facility] 10-17-2024 08:20-0500 SaO2% (BldA) [Mass fraction] 98 % Howie Smith DO Work Phone: [facility] 10-17-2024 08:20-0500 Systolic blood pressure 130 mm[Hg] Howie Smith DO Work Phone: [facility] 09-27-2024 13:02-0500 Body height 177.8 cm Howie Smith DO Work Phone: [facility] 09-27-2024 13:02-0500 Body mass index (BMI) [Ratio] 37.8 kg/m2 Howie Smith DO Work Phone: [facility] 09-27-2024 13:02-0500 Body temperature 97.5 [degF] Howie Smith DO Work Phone: [facility] 09-27-2024 13:02-0500 Body weight 119.74 kg Howie Smith DO Work Phone: [facility] 09-27-2024 13:02-0500 Diastolic blood pressure 84 mm[Hg] Howie Smith DO Work Phone: [facility] 09-27-2024 13:02-0500 Heart rate 93 /min Howie Smith DO Work Phone: [facility] 09-27-2024 13:02-0500 Respiratory rate 16 /min Howie Smith DO Work Phone: [facility] 09-27-2024 13:02-0500 SaO2% (BldA) [Mass fraction] 95 % Howie Smith DO Work Phone: [facility] 09-27-2024 13:02-0500 Systolic blood pressure 148 mm[Hg] Howie Smith DO Work Phone: [facility] 09-12-2024 09:05-0400 Body height 177.8 cm DO Howie Smith Work Phone: [facility] 09-12-2024 09:05-0400 Body mass index (BMI) [Ratio] 37.5 kg/m2 DO Howie Smith Work Phone: [facility] 09-12-2024 09:05-0400 Body temperature 97.3 [degF] DO Howie Smith Work Phone: [facility] 09-12-2024 09:05-0400 Body weight 118.84 kg DO Howie Smith Work Phone: [facility] 09-12-2024 09:05-0400 Diastolic blood pressure 86 mm[Hg] DO Howie Smith Work Phone: [facility] 09-12-2024 09:05-0400 Heart rate 77 /min DO Howie Smith Work Phone: [facility] 09-12-2024 09:05-0400 Respiratory rate 16 /min DO Howie Smith Work Phone: [facility] 09-12-2024 09:05-0400 SaO2% (BldA) [Mass fraction] 97 % DO Howie Smith Work Phone: [facility] 09-12-2024 09:05-0400 Systolic blood pressure 134 mm[Hg] DO Howie Smith Work Phone: [facility] 06-07-2024 10:23-0400 Body height 177.8 cm DO Howie Smith Work Phone: [facility] 06-07-2024 10:23-0400 Body mass index (BMI) [Ratio] 38.4 kg/m2 DO Howie Smith Work Phone: [facility] 06-07-2024 10:23-0400 Body temperature 97.3 [degF] DO Howie Smith Work Phone: [facility] 06-07-2024 10:23-0400 Body weight 121.56 kg DO Howie Smith Work Phone: [facility] 06-07-2024 10:23-0400 Diastolic blood pressure 92 mm[Hg] DO Howie Smith Work Phone: [facility] 06-07-2024 10:23-0400 Heart rate 72 /min DO Howie Smith Work Phone: [facility] 06-07-2024 10:23-0400 Respiratory rate 20 /min DO Howie Smith Work Phone: [facility] 06-07-2024 10:23-0400 SaO2% (BldA) [Mass fraction] 97 % DO Howie Smith Work Phone: [facility] 06-07-2024 10:23-0400 Systolic blood pressure 138 mm[Hg] DO Howie Smith Work Phone: [facility] 03-12-2024 16:52-0400 Body height 177.8 cm DO Howie Smith Work Phone: [facility] 03-12-2024 16:52-0400 Body temperature 98.6 [degF] DO Howie Smith Work Phone: [facility] 03-12-2024 16:52-0400 Body weight 120.2 kg DO Howie Smith Work Phone: [facility] 03-12-2024 16:52-0400 Diastolic blood pressure 84 mm[Hg] DO Howie Smith Work Phone: [facility] 03-12-2024 16:52-0400 Heart rate 106 /min DO Howie Smith Work Phone: [facility] 03-12-2024 16:52-0400 Respiratory rate 17 /min DO Howie Smith Work Phone: [facility] 03-12-2024 16:52-0400 SaO2% (BldA) [Mass fraction] 95 % DO Howie Smith Work Phone: [facility] 03-12-2024 16:52-0400 Systolic blood pressure 145 mm[Hg] DO Howie Smith Work Phone: [facility] 03-08-2024 09:03-0400 Body temperature 97.2 [degF] DO Howie Smith Work Phone: [facility] 03-08-2024 09:03-0400 Body weight 120.2 kg DO Howie Smith Work Phone: [facility] 03-08-2024 09:03-0400 Diastolic blood pressure 77 mm[Hg] DO Howie Smith Work Phone: [facility] 03-08-2024 09:03-0400 Heart rate 75 /min DO Howie Smith Work Phone: [facility] 03-08-2024 09:03-0400 Respiratory rate 16 /min DO Howie Smith Work Phone: [facility] 03-08-2024 09:03-0400 SaO2% (BldA) [Mass fraction] 96 % DO Howie Smith Work Phone: [facility] 03-08-2024 09:03-0400 Systolic blood pressure 133 mm[Hg] DO Howie Smith Work Phone: [facility] 12-08-2023 10:30-0500 Body temperature 98.2 [degF] Kenjijeff Mourasa Other [employer] Other 12-08-2023 10:30-0500 Body weight 117.03 kg Kenji [employer] Other [employer] Other 12-08-2023 10:30-0500 Diastolic blood pressure 84 mm[Hg] Kenji Samsa Other [employer] Other 12-08-2023 10:30-0500 Respiratory rate 20 /min Kenji Samsa Other [employer] Other 12-08-2023 10:30-0500 SaO2% (BldA) [Mass fraction] 97 % Kenji Valencia Other [employer] Other 12-08-2023 10:30-0500 Systolic blood pressure 117 mm[Hg] Kenji Valencia Other [employer] Other 09-08-2023 09:06-0400 Body temperature 97.4 [degF] DO [employer] Work Phone: [facility] 09-08-2023 09:06-0400 Diastolic blood pressure 85 mm[Hg] DO Howie Smith Work Phone: [facility] 09-08-2023 09:06-0400 Heart rate 74 /min DO Howie Smith Work Phone: [facility] 09-08-2023 09:06-0400 Respiratory rate 16 /min DO Howie Smith Work Phone: [facility] 09-08-2023 09:06-0400 SaO2% (BldA) [Mass fraction] 98 % DO Howie Smith Work Phone: [facility] 09-08-2023 09:06-0400 Systolic blood pressure 130 mm[Hg] DO Howie Smith Work Phone: [facility] 06-14-2023 09:15-0400 Body height 177.8 cm Alicia Ann Other [employer] Other 06-14-2023 09:15-0400 Body mass index (BMI) [Ratio] 38.59 kg/m2 Alicia Ann Other [employer] Other 06-14-2023 09:15-0400 Body temperature 96.9 [degF] Alicia Miguelban Other [employer] Other 06-14-2023 09:15-0400 Body weight 122.02 kg Alicia Ann Other [employer] Other 06-14-2023 09:15-0400 Diastolic blood pressure 84 mm[Hg] Alicia Miguelban Other [employer] Other 06-14-2023 09:15-0400 Respiratory rate 20 /min Alicia Ann Other [employer] Other 06-14-2023 09:15-0400 SaO2% (BldA) [Mass fraction] 98 % Alicia Ann Other [employer] Other 06-14-2023 09:15-0400 Systolic blood pressure 130 mm[Hg] Alicia Ann Other [employer] Other 03-08-2023 10:00-0400 Body height 177.8 cm Cory Mathews Other [employer] Other 03-08-2023 10:00-0400 Body mass index (BMI) [Ratio] 38.88 kg/m2 Cory Mathews Other [employer] Other 03-08-2023 10:00-0400 Body temperature 97.6 [degF] Cory Mathews Other [employer] Other 03-08-2023 10:00-0400 Body weight 122.93 kg Cory Mathews Other [employer] Other 03-08-2023 10:00-0400 Diastolic blood pressure 92 mm[Hg] Cory Gauthierno Other [facility] Other 03-08-2023 10:00-0400 Respiratory rate 20 /min Christrichie Gauthierno Other [facility] Other 03-08-2023 10:00-0400 SaO2% (BldA) [Mass fraction] 98 % Cory Gauthierno Other [facility] Other 03-08-2023 10:00-0400 Systolic blood pressure 136 mm[Hg] Cory Gauthierno Other [facility] Other 02-03-2023 08:26-0400 Body height 177.8 cm DO Howie Smith Work Phone: [facility] 02-03-2023 08:26-0400 Body temperature 97.8 [degF] DO Howie Smith Work Phone: [facility] 02-03-2023 08:26-0400 Body weight 126.5 kg DO Howie Smith Work Phone: [facility] 02-03-2023 08:26-0400 Diastolic blood pressure 84 mm[Hg] DO Howie Smith Work Phone: [facility] 02-03-2023 08:26-0400 Heart rate 68 /min DO Howie Smith Work Phone: [facility] 02-03-2023 08:26-0400 Respiratory rate 20 /min DO Howie Smith Work Phone: [facility] 02-03-2023 08:26-0400 SaO2% (BldA) [Mass fraction] 97 % DO Howie Smith Work Phone: [facility] 02-03-2023 08:26-0400 Systolic blood pressure 127 mm[Hg] DO Howie Smith Work Phone: [facility] 12-01-2022 10:00-0500 Body height 177.8 cm Alicia Ann Other [employer] Other 12-01-2022 10:00-0500 Body mass index (BMI) [Ratio] 38.02 kg/m2 Alicia Ann Other [employer] Other 12-01-2022 10:00-0500 Body temperature 97.2 [degF] Alicia Ann Other [employer] Other 12-01-2022 10:00-0500 Body weight 120.2 kg Alicia Ann Other [employer] Other 12-01-2022 10:00-0500 Diastolic blood pressure 86 mm[Hg] Alicia Ann Other [employer] Other 12-01-2022 10:00-0500 Respiratory rate 20 /min Alicia Ann Other [employer] Other 12-01-2022 10:00-0500 SaO2% (BldA) [Mass fraction] 97 % Alicia Ann Other [employer] Other 12-01-2022 10:00-0500 Systolic blood pressure 130 mm[Hg] Alicia Miguelban Other [employer] Other 08-24-2022 10:30-0400 Body height 177.8 cm Alicia Ann Other [employer] Other 08-24-2022 10:30-0400 Body mass index (BMI) [Ratio] 37.88 kg/m2 Alicia Miguelban Other [employer] Other 08-24-2022 10:30-0400 Body temperature 97.7 [degF] Alicia Chaban Other [employer] Other 08-24-2022 10:30-0400 Body weight 119.75 kg Alicia Chaban Other [employer] Other 08-24-2022 10:30-0400 Diastolic blood pressure 94 mm[Hg] Alicia Chaban Other [employer] Other 08-24-2022 10:30-0400 Respiratory rate 20 /min Alicia Miguelban Other [employer] Other 08-24-2022 10:30-0400 SaO2% (BldA) [Mass fraction] 97 % Alicia Miguelban Other [employer] Other 08-24-2022 10:30-0400 Systolic blood pressure 142 mm[Hg] Alicia Miguelban Other [employer] Other 08-04-2022 11:23-0400 Body weight 120.2 kg DO Howie Smith Work Phone: [facility] 08-04-2022 10:46-0400 Body temperature 97.5 [degF] DO Ohwie Smith Work Phone: [facility] 08-04-2022 10:46-0400 Diastolic blood pressure 84 mm[Hg] DO Howie Smith Work Phone: [facility] 08-04-2022 10:46-0400 Heart rate 77 /min DO Howie Smith Work Phone: [facility] 08-04-2022 10:46-0400 Respiratory rate 16 /min DO Howie Smith Work Phone: [facility] 08-04-2022 10:46-0400 SaO2% (BldA) [Mass fraction] 95 % DO Howie Smith Work Phone: [facility] 08-04-2022 10:46-0400 Systolic blood pressure 132 mm[Hg] DO Howie Smith Work Phone: [facility] 07-07-2022 11:00-0400 Body temperature 98 [degF] DO Howie Smith Work Phone: [facility] 07-07-2022 11:00-0400 Diastolic blood pressure 74 mm[Hg] DO Howie Smith Work Phone: [facility] 07-07-2022 11:00-0400 Heart rate 72 /min DO Howie Smith Work Phone: [facility] 07-07-2022 11:00-0400 Respiratory rate 18 /min DO Howie Smith Work Phone: [facility] 07-07-2022 11:00-0400 SaO2% (BldA) [Mass fraction] 98 % DO Howie Smith Work Phone: [facility] 07-07-2022 11:00-0400 Systolic blood pressure 128 mm[Hg] DO Howie Smith Work Phone: [facility] 06-09-2022 11:10-0400 Body weight 117.88 kg DO Howie Smith Work Phone: [facility] 02-17-2022 09:59-0400 Body height 177.8 cm DO Howie Smith Work Phone: [facility] Encounters Encounter Date Encounter Type Care Provider Facility Start: 04-24-2025 End: 04-24-2025 External Result Encounter Natacha Hess MD Work Phone: [facility] External Department Unsolicited Start: 04-24-2025 End: 04-24-2025 External Result Encounter Natacha Hess MD Work Phone: [facility] External Department Unsolicited Start: 04-24-2025 ambulatory Natacha Hess Facility:[facility] Start: 04-23-2025 End: 04-23-2025 External Result Encounter Natacha Hess MD Work Phone: [facility] External Department Unsolicited Start: 04-23-2025 End: 04-23-2025 External Result Encounter Natacha Hess MD Work Phone: [facility] External Department Unsolicited Start: 04-15-2025 End: 04-15-2025 Office outpatient visit 25 minutes Shoshana Pablo MD Work Phone: [facility] Comment on above: Voice fatigue (Prima ry Dx); Ulcerative laryngitis; Dysphonia; Muscle tension dysphonia; Voice hoarseness; Other voice and resonance disorders Start: 04-15-2025 End: 04-15-2025 ambulatory [facility] Start: 04-03-2025 End: 04-03-2025 External Result Encounter Natacha Hess MD Work Phone: [facility] External Department Unsolicited Start: 04-03-2025 End: 04-03-2025 External Result Encounter Natacha Hess MD Work Phone: [facility] External Department Unsolicited Start: 04-02-2025 End: 04-02-2025 External Result Encounter Natacha Hess MD Work Phone: [facility] External Department Unsolicited Start: 04-02-2025 End: 04-02-2025 External Result Encounter Natacha Hess MD Work Phone: [facility] External Department Unsolicited Start: 03-22-2025 End: 03-22-2025 ambulatory [facility] Start: 03-22-2025 End: 03-22-2025 Subsequent hospital visit by physician Shoshana Pablo MD Work Phone: [facility] [place] Comment on above: Ulcerative laryngiti s; Leukoplakia of larynx Start: 03-05-2025 End: 03-05-2025 External Result Encounter Natacha Hess MD Work Phone: [facility] External Department Unsolicited Start: 03-05-2025 End: 03-05-2025 External Result Encounter Natacha Hess MD Work Phone: [facility] External Department Unsolicited Start: 02-21-2025 End: 02-21-2025 Patient encounter procedure Alicia Ann MD Work Phone: [facility] Work Phone: Start: 02-21-2025 End: 02-21-2025 ambulatory Alicia Ann MD Work Phone: [facility] Work Phone: Start: 02-21-2025 Encounter for other preprocedural examination Shoshana Pablo [facility] Start: 02-13-2025 End: 02-13-2025 External Result Encounter Natacha Hess MD Work Phone: [facility] External Department Unsolicited Start: 02-13-2025 End: 02-13-2025 External Result Encounter Natacha Hess MD Work Phone: [facility] External Department Unsolicited Start: 02-13-2025 Registered Recurring Alicia holloway MD Work Phone: [facility] Work Phone: Start: 02-13-2025 End: 02-13-2025 ambulatory Alicia Ann MD Work Phone: [facility] Work Phone: Start: 02-13-2025 End: 02-13-2025 Patient encounter procedure Alicia Ann MD Work Phone: [facility] [place] [facility] Work Phone: Start: 02-12-2025 End: 02-12-2025 External Result Encounter Natacha Hess MD Work Phone: [facility] External Department Unsolicited Start: 02-12-2025 End: 02-12-2025 External Result Encounter Natacha Hess MD Work Phone: [facility] External Department Unsolicited Start: 02-05-2025 End: 02-05-2025 ambulatory Alicia Ann MD Work Phone: [facility] Work Phone: Start: 02-05-2025 End: 02-05-2025 Patient encounter procedure Alicia Ann MD Work Phone[facility] Work Phone: Start: 01-28-2025 End: 01-28-2025 ambulatory SHOSHANA PABLO [facility] Start: 01-28-2025 End: 01-28-2025 Encounter for other preprocedural examination SHOSHANA PABLO [facility] Start: 01-28-2025 End: 01-28-2025 Office outpatient new 45 minutes Shoshana Pablo MD Work Phone: [facility] Comment on above: Ulcerative laryngiti s (Primary Dx); Chronic fungal laryngitis; Pre-operative clearance; Presbylarynges; Dysphonia; Voice hoarseness; Muscle tension dysphonia; Does not use respiratory support for voice; Malignant neoplasm of right lung, unspecified part of lung (Multi) Start: 01-28-2025 End: 01-28-2025 Preoperative state Shoshana Pablo MD Work Phone: [facility] Work Phone: Start: 01-23-2025 End: 01-23-2025 External Result Encounter Natacha Hess MD Work Phone: [facility] External Department Unsolicited Start: 01-23-2025 End: 01-23-2025 External Result Encounter Natacha Hess MD Work Phone: [facility] External Department Unsolicited Start: 01-23-2025 Registered Recurring Howie Ellison Work Phone: [facility] [facility] Work Phone: Start: 01-23-2025 End: 01-23-2025 ambulatory Howie Smith DO Work Phone: [facility] Work Phone: Start: 01-23-2025 End: 01-23-2025 Patient encounter procedure Howie Smith DO Work Phone: [facility] Work Phone: Start: 01-02-2025 End: 01-02-2025 External Result Encounter Natacha Hess MD Work Phone: [facility] Department Unsolicited Start: 01-02-2025 End: 01-02-2025 External Result Encounter Natacha Hess MD Work Phone: [facility] External Department Unsolicited Start: 01-01-2025 End: 01-01-2025 External Result Encounter Natacha Hess MD Work Phone: [facility] External Department Unsolicited Start: 01-01-2025 End: 01-01-2025 External Result Encounter Natacha Hess MD Work Phone: [facility] External Department Unsolicited Start: 12-12-2024 End: 12-12-2024 External Result Encounter Natacha Hess MD Work Phone: [facility] External Department Unsolicited Start: 12-12-2024 End: 12-12-2024 External Result Encounter Natacha Hess MD Work Phone: [facility] External Department Unsolicited Start: 12-12-2024 Registered Recurring Howie Reedcaio sibley DO [facility] Phone[facility] Work Phone: Start: 12-12-2024 End: 12-12-2024 ambulatory Howie Smith DO Work Phone: [facility] Work Phone: Start: 12-12-2024 End: 12-12-2024 Patient encounter procedure [facility] Work [facility]: Start: 12-11-2024 End: 12-11-2024 Mason Scott MD Work Phone: [facility] Start: 12-11-2024 End: 12-11-2024 Bamsavio flowsdieter Scott MD Work Phone: [facility] Start: 12-11-2024 End: 12-11-2024 Patient encounter procedure Froylan Scott MD Work Phone: [facility] Comment on above: Lesion of vocal cord (Primary Dx) Start: 12-11-2024 End: 12-11-2024 ambulatory FROYLAN SCOTT Not Available Start: 12-10-2024 End: 12-10-2024 External Result Encounter Natacha Hess MD Work Phone: [facility] External Department Unsolicited Start: 12-10-2024 End: 12-10-2024 External Result Encounter Natacha Hess MD Work Phone: [facility] External Department Unsolicited Start: 11-20-2024 End: 11-20-2024 External Result Encounter Natacha Hess MD Work Phone: [facility] External Department Unsolicited Start: 11-20-2024 End: 11-20-2024 External Result Encounter Natacha Hess MD Work Phone: [facility] External Department Unsolicited Start: 11-19-2024 End: 11-19-2024 External Result Encounter Natacha Hess MD Work Phone: [facility] External Department Unsolicited Start: 11-19-2024 End: 11-19-2024 External Result Encounter Natacha Hess MD Work Phone: [facility] External Department Unsolicited Start: 11-19-2024 End: 11-19-2024 ambulatory Howie Smith DO Work Phone: [facility] Work Phone: Start: 11-19-2024 End: 11-19-2024 Patient encounter procedure Howie Smith DO Work Phone: [facility] Work Phone: Start: 11-19-2024 Registered Recurring Howie sibley DO Work Phone: [facility] Work Phone: Start: 11-08-2024 End: 11-08-2024 Patient encounter procedure oHwie Smith DO Work Phone: [facility] Work Phone: Start: 11-05-2024 End: 11-05-2024 Mason Scott MD Work Phone: [facility] Start: 11-05-2024 End: 11-05-2024 Mason Scott MD Work Phone: [facility] Start: 11-05-2024 End: 11-05-2024 ambulatory FROYLAN SCOTT Not Available Start: 11-05-2024 End: 11-05-2024 Office outpatient new 45 minutes Froylan Scott MD Work Phone: [facility] Comment on above: Throat pain (Primary Dx); LPRD (laryngopharyngeal reflux disease); Recurrent epistaxis; Hoarse Start: 11-02-2024 End: 11-02-2024 Postop follow up visit related to original px Wilmer Mckeon MD Work Phone: [facility] Comment on above: Poor venous access ( Primary Dx); Malignant neoplasm of overlapping sites of right lung (CMS/HCC) Start: 11-02-2024 End: 11-02-2024 ambulatory WILMER MCKEON V Not Available Start: 10-30-2024 End: 10-30-2024 External Result Encounter Natacha Hess MD Work Phone: [facility] External Department Unsolicited Start: 10-30-2024 End: 10-30-2024 External Result Encounter Natacha Hess MD Work Phone: [facility] External Department Unsolicited Start: 10-25-2024 End: 10-25-2024 External Result Encounter Natacha Hess MD Work Phone: [facility] External Department Unsolicited Start: 10-25-2024 End: 10-25-2024 External Result Encounter Natacha Hess MD Work Phone: [facility] External Department Unsolicited Start: 10-25-2024 End: 10-25-2024 Admission to same day surgery center Howie Smith DO Work Phone: [facility] [place] Start: 10-25-2024 End: 10-25-2024 ambulatory Wilmer Mckeon Facility:[facility] Start: 10-22-2024 End: 10-22-2024 External Result Encounter Natacha Hess MD Work Phone: [facility] External Department Unsolicited Start: 10-22-2024 End: 10-22-2024 External Result Encounter Natacha Hess MD Work Phone: [facility] External Department Unsolicited Start: 10-22-2024 Non-patient / Non-visit Howie jeff DO Work Phone: [facility] Work Phone: Start: 10-17-2024 End: 10-17-2024 Office outpatient new 45 minutes Wilmer Mckeon MD Work Phone: [facility] Comment on above: Poor venous access ( Primary Dx); Venous insufficiency; Malignant neoplasm of overlapping sites of right lung (CMS/HCC) Start: 10-17-2024 End: 10-17-2024 ambulatory WILMER MCKEON V Not Available Start: 10-17-2024 End: 10-17-2024 Patient encounter procedure Howie Smith DO [facility] Work Phone: Start: 10-16-2024 End: 10-16-2024 External Result Encounter Natacha Hess MD Work Phone: [facility] External Department Unsolicited Start: 10-16-2024 End: 10-16-2024 External Result Encounter Natacha Hess MD Work Phone: [facility] External Department Unsolicited Start: 10-09-2024 Non-patient / Non-visit Howie jeff DO Work Phone: [facility] Work Phone: Start: 10-09-2024 End: 10-09-2024 External Result Encounter Natacha Hess MD Work Phone: [facility] External Department Unsolicited Start: 10-09-2024 End: 10-09-2024 External Result Encounter Natacha Hess MD Work Phone: [facility] External Department Unsolicited Start: 10-08-2024 End: 10-08-2024 External Result Encounter Natacha Hess MD Work Phone: [facility] External Department Unsolicited Start: 10-08-2024 End: 10-08-2024 External Result Encounter Natacha Hess MD Work Phone: [facility] External Department Unsolicited Start: 09-27-2024 Registered Recurring Howie Dickinson maryjo DO Work Phone[facility] Work Phone: Start: 09-27-2024 End: 09-27-2024 ambulatory Howie Smith DO Work Phone: [facility] Work Phone: Start: 09-27-2024 End: 09-27-2024 Patient encounter procedure Howie Vasqueze DO Work Phone: [facility] Work Phone: Start: 09-24-2024 End: 09-24-2024 External Result Encounter Natacha Hess MD Work Phone: [facility] External Department Unsolicited Start: 09-24-2024 End: 09-24-2024 External Result Encounter Natacha Hess MD Work Phone: [facility] External Department Unsolicited Start: 09-12-2024 Registered Recurring DO Howie jeff Work Phone: [facility] Work Phone: Start: 09-12-2024 End: 09-12-2024 ambulatory DO Howie Smith Work Phone: [facility] Work Phone: Start: 09-12-2024 End: 09-12-2024 Patient encounter procedure DO Howie Smith [facility] Work [facility]: Start: 09-10-2024 End: 09-10-2024 External Result Encounter Natacha Hess MD Work Phone: [facility] External Department Unsolicited Start: 09-10-2024 End: 09-10-2024 External Result Encounter Natacha Hess MD Work Phone: [facility] External Department Unsolicited Start: 06-07-2024 End: 06-07-2024 ambulatory DO Howie Smith Work Phone: [facility] Work Phone: Start: 06-07-2024 End: 06-07-2024 Patient encounter procedure DO Howie Smith Work Phone: [facility] Work Phone: Start: 03-12-2024 End: 03-12-2024 Emergency department patient visit DO Howie Smith Work Phone: [facility] Work Phone: Start: 03-08-2024 End: 03-08-2024 ambulatory DO Howie Smith Work Phone: [facility] Work Phone: Start: 03-08-2024 End: 03-08-2024 Patient encounter procedure DO Howie Smith Work Phone: [facility] Work Phone: Start: 03-08-2024 Registered Recurring DO Howie jeff Work Phone[facility] Work Phone: Start: 12-12-2023 Patient encounter procedure DO Howie Smith Work Phone: [facility]- Start: 12-08-2023 End: 12-08-2023 ambulatory Kenji Samsa Other [employer] Other Start: 12-08-2023 Office outpatient vi sit 15 minutes Kenji Samsa [facility] Start: 06-14-2023 End: 06-14-2023 ambulatory Kamal Chaban Other [employer] Other Start: 06-14-2023 Office outpatient vi sit 25 minutes Kamal Chaban [facility] Start: 03-08-2023 End: 03-08-2023 ambulatory Christopher Reid Other [employer] Other Start: 03-08-2023 Office outpatient vi sit 25 minutes Christopher Reid [facility] Start: 02-03-2023 End: 02-03-2023 ambulatory DO Howie Smith Work Phone: [facility] Work Phone: Start: 02-03-2023 End: 02-03-2023 Registered Recurring DO Howie Smith Work [facility] Work [facility]: Start: 12-01-2022 End: 12-01-2022 ambulatory Kamal Chaban Other [employer] Other Start: 12-01-2022 Office outpatient vi sit 25 minutes Kamal Chaban [facility] Start: 08-24-2022 End: 08-24-2022 ambulatory Alicia Ann Other [facility] [employer] Other Start: 08-24-2022 Office outpatient vi sit 25 minutes Kamsuly Ann [facility] Start: 08-04-2022 End: 08-04-2022 Registered Recurring DO Howie Smith Work Phone[facility] [place] Start: 08-04-2022 End: 08-04-2022 Registered Recurring DO Howie Smith Work Phone: [facility] [place] Start: 07-07-2022 Registered Recurring DO Hoiwe jeff Work Phone: [facility] [place] Start: 07-06-2022 End: 07-06-2022 Patient encounter procedure DO Howie Smith Work Phone: [facility] [place] Start: 04-25-2021 Encounter for preprocedural laboratory examination KATHERINE SIMEON JR [facility] Start: 04-22-2021 End: 04-22-2021 ambulatory KATHERINE SIMEON JR Facility:[facility] Start: 04-20-2021 End: 04-21-2021 ambulatory KATHERINE SIMEON JR Facility: Start: 04-20-2021 End: 04-21-2021 Encounter for preprocedural laboratory examination KATHERINE SIMEON JR Facility: Start: 10-01-2020 End: 10-02-2020 ambulatory [facility] Facility: Procedures Date Procedure Procedure Detail Performing Clinician Start: 04-24-2025 Creatinine other source Natacha Hess MD Work Phone: Start: 04-24-2025 TOTAL PROTEIN, URINE Am micah Hess MD Work Phone: Start: 04-23-2025 Complete blood count with white cell differential, automated Natacha Hess MD Work Phone: Start: 04-23-2025 Comprehensive metabo lic panel Natacha Hess MD Work Phone: Start: 04-03-2025 End: 04-03-2025 Creatinine other source Natacha Hess MD Work Phone: Start: 04-03-2025 End: 04-03-2025 TOTAL PROTEIN, URINE Natacha Hess MD Work Phone: Start: 04-02-2025 Complete blood count with white cell differential, automated Natacha Hess MD Work Phone: Start: 04-02-2025 Comprehensive metabo lic panel Natacha Hess MD Work Phone: Start: 03-22-2025 PULSE OXIMETRY, CONTINUOUS Howie Baez MD Work Phone: Start: 03-05-2025 Comprehensive metabo lic panel Natacha Hess MD Work Phone: Start: 02-21-2025 Plain chest X-ray Alicia Ann MD Work Phone: Start: 02-13-2025 Creatinine other source Natacha Hess MD Work Phone: Start: 02-13-2025 TOTAL PROTEIN, URINE Am micah Hess MD Work Phone: Start: 02-12-2025 Comprehensive metabo lic panel Natacha Hess MD Work Phone: Start: 02-12-2025 CT of thorax with contrast Alicia Ann MD Work Phone: Start: 01-23-2025 Creatinine other source Natacha Hess MD Work Phone: Start: 01-23-2025 TOTAL PROTEIN, URINE Am micah Hess MD Work Phone: Start: 01-02-2025 Creatinine other source Natacha Hess MD Work Phone: Start: 01-02-2025 TOTAL PROTEIN, URINE Am micah Hess MD Work Phone: Start: 01-01-2025 Complete blood count with white cell differential, automated Natacha Hess MD Work Phone: Start: 01-01-2025 Comprehensive metabo lic panel Natacha Hess MD Work Phone: Start: 12-12-2024 Creatinine other source Natacha Hess MD Work Phone: Start: 12-12-2024 TOTAL PROTEIN, URINE Am micah Hess MD Work Phone: Start: 12-10-2024 Comprehensive metabo lic panel Natacha Hess MD Work Phone: Start: 12-10-2024 CT of thorax with contrast Howie Smith [employer] Work Phone: Start: 11-20-2024 Creatinine other source Natacha Hess MD Work Phone: Start: 11-20-2024 TOTAL PROTEIN, URINE Am micah Hess MD Work Phone: Start: 11-19-2024 Comprehensive metabo lic panel Natacha Hess MD Work Phone: Start: 11-19-2024 SCAN AND CBC Natacha brady MD Work Phone: Start: 10-30-2024 Creatinine other source Natacha Hess MD Work Phone: Start: 10-30-2024 TOTAL PROTEIN, URINE Am micah Hess MD Work Phone: Start: 10-25-2024 Plain chest X-ray Howie Smith [employer] Work Phone: Start: 10-25-2024 OR Infusaport Insertion/Removal (Not Applicable) Howie Smith DO Work Phone: Start: 10-25-2024 Comprehensive metabo lic panel Natacha Hess MD Work Phone: Start: 10-22-2024 Comprehensive metabo lic panel Natacha Hess MD Work Phone: Start: 10-16-2024 Comprehensive metabo lic panel Natacha Hess MD Work Phone: Start: 10-09-2024 Creatinine other source Natacha Hess MD Work Phone: Start: 10-09-2024 TOTAL PROTEIN, URINE Am micah Hess MD Work Phone: Start: 10-08-2024 Complete blood count with white cell differential, automated Natacha Hess MD Work Phone: Start: 10-08-2024 Comprehensive metabo lic panel Natacha Hess MD Work Phone: Start: 09-24-2024 Positron emission tomography with computed tomography Howie Smith DO Work Phone: Start: 09-24-2024 GLUCOSE POCT GLUCOMETERS Natacha Hess MD Work Phone: Start: 09-10-2024 Complete blood count with white cell differential, automated Natacha Hess MD Work Phone: Start: 09-10-2024 CT of thorax with contrast DO Howie Smith Work Phone: Start: 03-12-2024 CT of abdomen and pe lvis without contrast DO Howie Smith Work Phone: Start: 03-12-2024 Urine culture DO Howie jeff Work Phone: Start: 03-05-2024 CT of thorax with contrast DO Howie Smith Work Phone: Start: 09-06-2023 CT of thorax with contrast DO Howie Smith Work Phone: Start: 05-02-2023 CT of thorax with contrast DO Howie Smith Work Phone: Start: 02-01-2023 CT of thorax with contrast DO Howie Smith Work Phone: Start: 11-01-2022 CT of thorax with contrast DO Howie Smith Work Phone: Start: 08-02-2022 CT of thorax with contrast DO Howie Smith Work Phone: Start: 04-23-2022 CT of thorax with contrast DO Howie Smith Work Phone: Start: 03-11-2022 Plain chest X-ray DO Ca rl Smith Work Phone: Start: 01-13-2022 CT of thorax with contrast DO Howie Smith Work Phone: Start: 12-23-2021 Plain chest X-ray DO Monie Smith Work Phone: Start: 12-04-2021 CT of thorax with contrast DO Howie Smith Work Phone: Start: 07-28-2021 Computed tomography for radiotherapy planning DO Howie Smith Work Phone: Start: 07-22-2021 Positron emission tomography with computed tomography DO Howie Smith Work Phone: Plan of Treatment Date Care Activity Detail Author Start: 10-21-2025 DTaP/Tdap/Td Vaccines (2 - Td or Tdap) DTaP/Tdap/Td Vaccines (2 - Td or Tdap) [facility] Start: 05-14-2025 End: 05-14-2025 Telemedicine consultation with patient 05/14/2025 11:15 AM EDT Telemedicine Clinical Support [facility] [place] [address] [place] [address] Franny Barrett SLP [address] Department [place] [address] [facility] [place] Start: 04-15-2025 End: 04-15-2025 Patient encounter procedure 04/15/2025 11:45 AM EDT Office Visit [facility] [address] [place] [address] 2[address] [place] [address] [place] [address] Department [place] [address] [facility] Start: 02-14-2025 [facility] Start: 02-13-2025 End: 02-13-2025 [facility] Start: 02-13-2025 [facility] Start: 01-28-2025 End: 01-28-2026 ECG 12 lead (Ancillary Performed) ECG 12 lead (Ancillary Performed) ECG Routine Pre-operative clearance Expected: 01/28/2025 (Approximate), Expires: 01/28/2026 [facility] Service Area Work Phone: Comment on above: Expected: 01/28/2025 (Approximate), Expi res: 01/28/2026 Start: 01-28-2025 End: 01-28-2026 XR Chest 2 Views XR chest 2 views Imaging Routine Pre-operative clearance Expected: 01/28/2025, Expires: 01/28/2026 [facility] Work Phone: Comment on above: Expected: 01/28/2025, Expires: Start: 01-23-2025 [facility] Start: 01-02-2025 [facility] Start: 12-12-2024 [facility] Start: 12-11-2024 End: 12-11-2024 Patient encounter procedure [facility] Comment on above: Arrived Start: 12-04-2024 [facility] Start: 11-20-2024 Patient referral to dietitian [facility] Start: 11-19-2024 End: 11-20-2024 [facility] Start: 11-05-2024 End: 11-05-2024 Patient encounter procedure 11/05/2024 10:50 AM EST [facility] [address] [place] [address] Froylan Scott MD [address] [facility] [address] [place] [address] [facility] [place] Start: 11-02-2024 End: 11-02-2024 Patient encounter procedure 11/02/2024 10:30 AM EST Office Visit [facility] [address] [facility] [address] [place] [address] Wilmer Mckeon MD [address] [facility] [address] [place] [address] [facility] Start: 10-30-2024 [facility] Start: 10-25-2024 [facility] Start: 10-17-2024 End: 10-17-2024 Patient encounter procedure 10/17/2024 9:30 AM EST Consult [facility] [address] [facility] [address] [place] [id number] Wilmer Mckeon MD [address] [place] [address] [facility] Start: 10-09-2024 [facility] Start: 07-15-2024 COVID-19 Vaccine ( season) COVID-19 Vaccine () [facility] Start: 07-15-2024 COVID-19 Vaccine () COVID-19 Vaccine () [facility] Start: 03-12-2024 Bacteria identified in Urine by Culture [facility] Start: 08-04-2022 [facility] Work Phone: Start: 07-07-2022 [facility] Work Phone: Start: 06-09-2022 [facility] Work Phone: Start: 05-12-2022 [facility] Work Phone: Start: 04-14-2022 [facility] Work Phone: Start: 03-17-2022 [facility] Work Phone: Start: 02-17-2022 [facility] Work Phone: Start: 01-21-2022 [facility] Work Phone: Start: 12-23-2021 [facility] Start: 12-23-2021 [facility] Work Phone: Start: 11-25-2021 [facility] Work Phone: Start: 09-24-2021 [facility] Start: 2017 Abdominal aortic aneurysm screening Abdominal Aortic Aneurysm (AAA) Screening [facility] Start: 11-30-2014 Zoster Vaccines (2 of 3) Zoster Vaccines (2 of 3) [facility] Start: 1970 Diabetes mellitus screening Diabetes Screening [facility] Start: 1970 Hepatitis C screening Hepatitis C Screening [facility] Start: 1952 Lipid panel Lipid Panel [facility] Start: 1952 Medicare Annual Wellness Visit Medicare Annual Wellness Visit (AWV) [facility] Start: 1952 Screening for malignant neoplasm of colon [facility] Adrenocorticotropic hormone measurement [facility] Work Phone: End: 03-22-2025 Blood type and Indirect antibody screen panel - Blood Type And Screen Lab Timed Ulcerative laryngitis Leukoplakia of larynx As needed (Lab) until discontinued starting 03/22/2025 [facility] Service Area Work Phone: Comment on above: As needed (Lab) until discontinued start ing 03/22/2025 CBC W Auto Different ial panel - Blood CBC auto differential Lab STAT 10/16/2024 11:19 AM EST [facility] Healthcare Work Phone: CBC W Auto Different ial panel - Blood CBC auto differential Lab Routine 10/22/2024 2:49 PM EST [facility] Healthcare Work Phone: CBC W Auto Different ial panel - Blood CBC auto differential Lab Routine 10/25/2024 11:34 AM EST [facility] Work Phone: CBC W Auto Different ial panel - Blood CBC auto differential Lab STAT 12/10/2024 11:15 AM EST [facility] Work Phone: CBC W Auto Different ial panel - Blood CBC auto differential Lab STAT 02/12/2025 12:10 PM EDT [facility] Work Phone: CBC W Auto Different ial panel - Blood CBC auto differential Lab STAT 03/05/2025 2:05 PM EDT [facility] Work Phone: Comprehensive metabo lic 1999 panel - Serum or Plasma [facility] Work Phone: Comprehensive metabo lic 1999 panel - Serum or Plasma [facility] Comprehensive metabo lic 1999 panel - Serum or Plasma [facility] Comprehensive metabo lic 1999 panel - Serum or Plasma [facility] Comprehensive metabo lic 1999 panel - Serum or Plasma [facility] Comprehensive metabo lic 1999 panel - Serum or Plasma [facility] Comprehensive metabo lic 1999 panel - Serum or Plasma [facility] Comprehensive metabo lic 1999 panel - Serum or Plasma [facility] Comprehensive metabo lic 1999 panel - Serum or Plasma [facility] Cortisol [Mass/volum e] in Serum or Plasma [facility] Work Phone: CT Chest W contrast IV [facility] Work Phone: CT Chest W contrast IV [facility] CT Chest W contrast IV [facility] CT Chest W contrast IV [facility] CT Chest W contrast IV [facility] CT Chest W contrast IV [facility] Patient Education [facility] Work Phone: Patient referral [facility] Work Phone: Surgical pathology study Surgica l Pathology Exam Pathology and Cytology Routine Ulcerative laryngitis Leukoplakia of larynx Release Upon Ordering for 1 Occurrences starting 03/22/2025 [facility] Work Phone: Comment on above: Release Upon Ordering for 1 Occurrences starting 03/22/2025 Thyrotropin [Units/v olume] in Serum or Plasma [facility] Work Phone: Thyroxine (T4) free [Mass/volume] in Serum or Plasma [facility] Work Phone: [facility] Immunizations Immunization Date Immunization Notes Care Provider Fa cility 10-05-2024 influenza, high dose seasonal, preservative-free Alicia Ann MD Work Phone: [facility] 10-05-2024 Pneumococcal Conjuga te Vaccine, 20 valent Alicia Ann MD Work Phone: [facility] 10-12-2023 Influenza vaccine, quadrivalent, adjuvanted Alicia Ann MD Work Phone: [facility] 10-12-2023 RSV, preF3, adj, pf Alicia benjamin MD Work Phone: [facility] 03-30-2022 COVID-19 Comirnaty (Pfizer) Tri-Sucrose 12+ Alicia Ann MD Work Phone: [facility] 09-26-2021 COVID-19 Vaccine Pfi zer - Documentation Purposes Only Alicia Ann Other [facility] 08-17-2021 Fluzone QIV High-Dos e 65YR+ Alicia Ann MD Work Phone: [facility] 06-30-2021 COVID-19 Vaccine Mod zan - Documentation Purposes Only Alicia Ann Other [facility] 02-13-2021 COVID-19 Vaccine Pfi zer - Documentation Purposes Only Alicia Ann Other [facility] 01-23-2021 COVID-19 Vaccine Pfi zer - Documentation Purposes Only Alicia Ann Other [facility] 08-28-2020 Seasonal, quadrivale nt, recombinant, injectable influenza vaccine, preservative free Alicia Ann MD Work Phone: [facility] 06-09-2020 pneumococcal polysaccharide vaccine, 23 valent Alicia Ann MD Work Phone: [facility] 09-03-2019 influenza, high dose seasonal, preservative-free Alicia Ann MD Work Phone: [facility] 09-06-2018 influenza, high dose seasonal, preservative-free Alicia Ann MD Work Phone: [facility] 09-06-2018 pneumococcal conjuga te vaccine, 13 valent Alicia Ann MD Work Phone: [facility] 08-30-2017 influenza, seasonal, injectable, preservative free Alicia Ann MD Work Phone: [facility] 08-18-2016 influenza, seasonal, injectable, preservative free Alicia Ann MD Work Phone: [facility] 10-21-2015 tetanus toxoid, redu esperanza diphtheria toxoid, and acellular pertussis vaccine, adsorbed Alicia Ann MD Work Phone: [facility] 08-27-2015 influenza, seasonal, injectable, preservative free Alicia Ann MD Work Phone: [facility] 10-05-2014 zoster vaccine, live Alicia oh MD Work Phone: [facility] 09-02-2014 pneumococcal polysaccharide vaccine, 23 valdevyn Ann MD Work Phone: [facility] Payers Date Payer Category Payer Unknown [id number] 2024 Self-pay [id number] 2022 Private Health Insurance [id number] 2017 Medicare [id number] 1959 Medicare [id number] 1959 Unknown [id number] 1952 Unknown [id number] 2.16.84 [id number] 1952 Unknown [id number] 2.16.84 [id number] 1952 Unknown [id number] 2.16.84 [id number] 1952 Unknown [id number] 2.16.84 [id number] 1952 Unknown [id number] 2.16.84 [id number] 1952 Unknown [id number] 2.16.84 [id number] 1952 Unknown [id number] 2.16.84 [id number] 1952 Unknown [id number] 2.16.8 [id number] 1952 Unknown [id number] 2.16. [id number] 1952 Unknown [id number] 2.16. [id number] Unknown [id number] Unknown [id number] 2.16.8 [id number] Unknown [id number] 2.16.8 [id number] Unknown [id number] 2.16.8 [id number] Social History Date Type Detail Facility Start: 05-05-2022 End: 12-11-2024 Tobacco smoking status KYIS Ex-smoker (finding) [facility] Start: 1950 Sex Assigned At Male [facility] Start: 10-17-2024 End: 12-11-2024 Sex Assigned At [facility] Other Start: 03-12-2024 Tobacco smoking status NHIS Never smoked tobacco (finding) [facility] Tobacco smoking status [facility] Tobacco smoking consumption unknown [facility] Start: 1950 Sex assigned at Not on file [facility] Start: 09-27-2024 End: 02-22-2025 Sex Male (finding) [facility] End: 02-14-2002 History of tobacco use Current smoker [facility] End: 02-14-2002 History of tobacco use Cigarette Smoker [facility] Start: 10-17-2024 End: 04-15-2025 Alcoholic beverage intake Ex-drinker (finding) [facility] Start: 10-17-2024 End: 12-11-2024 History of Social function [facility] Start: 12-11-2024 End: 03-22-2025 Tobacco use and exposure Smokeless tobacco non-user [facility] Start: 12-11-2024 Alcoholic beverage intake Current drinker of alcohol (finding) [facility] Start: 12-11-2024 Alcohol Comment Maybe a glass of wine3 times a year [facility] Start: 01-18-2025 End: 04-15-2025 Exposure to SARS-CoV-2 (event) Not sure [facility] Start: 03-22-2025 Gender identity Identifies as male gender (finding) [facility] Work Phone: Start: 03-22-2025 Sexual orientation Heterosexual (fin ding) [facility] Work Phone: NEGATED: Highlighted rowStart: NINF History of tobacco use Passive smoker [facility] Work Phone: Medical Equipment Procedure Code Equipment Code Equipment Origin al Text Equipment Identifier Dates Insertion of central venous catheter (CVC) with subcutaneous port for chemotherapy Vascular port/catheter [id number] FDA Start: 10-25-2024 Implant, Prolary n Plus, 1cc Injectable - [id number] - [id number] Start: 03-22-2025 Goals Date Patient Goal Desired Activity /State Functional Status Date Assessment Result Facility 03-22-2025 Sula - suicide severity rating scale screener - recent [C-SSRS] [facility] Work Phone: 07-06-2022 Lipoprotein insulin resistance score Lipoprotein Profile Interpretation 51 [facility] Comment on above: This test was develo ped and its performance characteristics determined by [facility]. It has not been cleared or approved by the Food and Drug Administration. INSULIN RESISTANCE MARKER <--Insulin Sensitive Insulin Resistant--> Percentile in Reference Population Insulin Resistance Score LP-IR Score Low 25th 50th 75th High <27 27 45 63 >63 LP-IR Score is inaccurate if patient is non-fasting. The LP-IR score is a laboratory developed index that has been associated with insulin resistance and diabetes risk and should be used as one component of a physician's clinical assessment. Performed at: [address] [id number] [place] Administrator: Clarence Camargo MD, Phone: [phone] Clinical Notes 10-01-2020 to 04-15-2025 Shoshana Pablo MD - 04/15/2025 11:45 AM EDTSignificant Event - Idalia Tenorio RN - 03/22/2025 1:18 PM EDTSignificant Event - Idalia Tenorio RN - 03/22/2025 1:18 PM EDTDischarge Instructions Note Date & Type Note Facility 04-15-2025 History of Presen t illness Narrative ASSESSMENT AND PLAN: Bert Yeung is a 74 y.o. male with a history of ulcerative laryngitis and leukoplakia with improvement on today's exam. He has irritation of the mucosa on the medial surface. He will have a difficult time with speech therapy. I would like him to trial some. He could do well with cup bubbles to help with muscle tension. He was started on a course of Bactrim for 14 days. He may benefit from steroids or additional procedure in the future to remove diseased cells. He will follow up in 3-4 weeks for a repeat evaluation. Assessment & Plan Patient presents with significant improvement in ulcerative laryngitis, persistent mucosal irritation, and significant muscle tension. We discussed options for management to include: trial speech therapy, cup bubbles for phonation relaxation, consideration of steroids or additional procedure for diseased cells, and prescribed Bactrim for 14 days. Treatment plan: - Trial speech therapy - Cup bubbles for phonation relaxation - Consider steroids or additional procedure for diseased cells - Prescribed Bactrim for 14 days Clinical decision making: - Discussed risks, benefits, and alternatives. Speech therapy may be difficult but beneficial. Cup bubbles suggested for phonation relaxation. Consider steroids or additional procedure. Prescribed Bactrim, discussed medication costs and alternatives (doxycycline, Cipro). Follow-up: - Follow-up in 3-4 weeks for repeat visualization. Reason For Consult No chief complaint on file. HISTORY OF PRESENT ILLNESS: Bert Yeung is a 74 y.o. male presenting for a follow up visit with me for ulcerative laryngitis with leukoplakia. Pathology showed squamous mucosa with atypia and fibrosis. Negative for high-grade dysplasia. There was significant damage noted on the vocal cord. The patient reports that she been doing well since her procedure. Prior History: Seen last seen in the OR on 03/22/2025 Telangiectasias bilaterally - leukoplakia L>R, treated with KTP laser. Left side with two separate areas of leukoplakia, one mid-cord and one posterior. Microflap excision followed by KTP lesion for treatment. 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 Many adhesions/scar within the SALARY AND WAGE ADMINISTRATOR on the left. History of Present Illness Mr. Bert Chinchilla is a 74-year-old gentleman who is here for a follow-up after his procedure on March 22, 2025, for ulcerative laryngitis of the vocal cords. During the procedure, the doctor found significant issues with his vocal cords, including telangiectasias on both sides and more leukoplakia on the left vocal cord than the right. The vocal cords were treated with a KTP laser, and two areas of leukoplakia were removed. The right vocal cord had lost a lot of volume, so Prolaryn Gel was injected to help. The left vocal cord had adhesions and scars. The pathology report showed squamous mucosa with atypia and fibrosis but no high-grade dysplasia, which means there was no cancer, but there was significant damage and scarring. Throat and Voice Recovery - Mr. Chinchilla reports that his throat is generally improving, and his voice is gradually recovering. - He does not have any problems with swallowing or tongue pain. Cough and Phlegm Production - He has been coughing a lot, which makes his throat sore. - He has noticed an increase in phlegm production. Supplemental information: He confirmed that he has not had any sinus surgery and does not have any medication allergies. He uses a humidifier at home regularly to help with his symptoms. Past Medical History He has a past medical history of GERD (gastroesophageal reflux disease), HLD (hyperlipidemia), HTN (hypertension), and Lung cancer (Multi). Surgical History He has a past surgical history that includes Colonoscopy; Appendectomy; Carpal tunnel release (Right); and Cervical spine surgery. Social History He reports that he has quit smoking. His smoking use included cigarettes. He has never been exposed to tobacco smoke. He has never used smokeless tobacco. He reports that he does not currently use alcohol. He reports that he does not use drugs. Allergies Patient has no known allergies. Family History Family History[1] Review of Systems All 10 systems were reviewed and negative except for above. Last Recorded Vitals Blood pressure 123/72, temperature 36.5 C (97.7 F), temperature source Temporal, height 1.778 m (5' 10 ), weight 110 kg (241 lb 10 oz). Physical Exam ENT Physical Exam Constitutional Appearance: patient appears well-developed and well-nourished, Head and Face Appearance: head appears normal and face appears normal; Ear Auricles: right auricle normal; left auricle normal; Nose External Nose: nares patent bilaterally; Oral Cavity/Oropharynx Lips: normal; Neck Neck: neck normal; neck palpation normal; Respiratory Inspection: no retractions visible; Cardiovascular Inspection: no peripheral edema present; Neurovestibular Mental Status: alert and oriented; Psychiatric: mood normal; Cranial Nerves: cranial nerves intact; Physical Exam PHYSICAL EXAMINATION: Appearance: Patient appears well-developed, well-nourished, no acute distress. Head/Face: Symmetric facial features, no masses/lesions. Salivary Glands: Parotid/submandibular glands normal bilaterally. Ears: Right auricle normal; left auricle normal. External/Internal Nose: Wide maxillary antrostomy, accessory ostium. Oral Cavity: Normal, no lesions/masses. Pharynx: No tonsillar hypertrophy/erythema. Neck Palpation: No lymphadenopathy, trachea midline, thyroid non-enlarged. Respiratory: Breathing comfortably, no stridor/retractions. CV/Extremities: No clubbing/cyanosis/peripheral edema. Cranial Nerves: II-XII grossly intact and symmetric. Mood/Affect: Appropriate, no agitation. STROBOSCOPY: VOICE AND SPEECH CHARACTERISTICS: Normal spoken speech. Grade: Normal - 0. Roughness: Absent - 0. Breathiness: Absent - 0. Asthenia: Absent - 0. Strain: Absent - 0. Additional Voice Characteristics: Pitch: Within normal range. Intelligibility: Normal. Resonance: Balanced. Vocal Loudness: Adequate. Breath Support: Sustained. Reflux Finding Score: Subglottic edema: Present. Thick Mucus: Present. Granuloma: Absent. Ventricular Obliteration: Absent. Erythema/Hyperemia: Complete erythema. IA Thickening: Mild interarytenoid thickening. TVC Edema: Moderate vocal fold edema. Diffuse Laryngitis: Absent. PROCEDURE: Indications: Per HPI. Technique: Patient seated, topical anesthesia applied; flexible endoscope advanced to evaluate nasopharynx, oropharynx, hypopharynx, larynx, and subglottis. Gross Arytenoid Movement: Symmetric gross arytenoids. Height: Normal arytenoid height. Supraglottic Tension: Lateral supraglottic tension. Symmetry: Asymmetric AP symmetry. Amplitude: Bilaterally reduced amplitude. Closure: Irregular vocal cord closure. Mucosal Wave Lateral Excursion/Secondary Wave: Out of phase and apiotic. Periodicity: Severe bilateral vocal cord restriction. Closure: Irregular vocal cord closure. Results - Stroboscopy: - Significant improvement - Persistent mucosal irritation - Voice: - Grade: 2 - Roughness: 2 - Breathiness: 0 - Asthenia: 2 - Strain: 3 - Reduced intelligibility - Resonance balanced - Vocal loudness reduced - Breath support decreased - Subglottic edema - Thick mucus - No granuloma - Partial ventricular obliteration - Complete erythema - Mild interarytenoid thickening - Moderate vocal fold edema - No diffuse laryngitis - Symmetric gross arytenoids - Normal arytenoid height - Lateral supraglottic tension - Asymmetric AP symmetry - Bilaterally reduced amplitude - Out of phase and apiotic - Severe bilateral vocal cord restriction - Irregular vocal cord closure Relevant Results Pathology FINAL DIAGNOSIS A. Vocal cord, left lesion, excision: - Squamous mucosa with atypia (favor reactive) and underlying fibrosis, negative for high-grade dysplasia. B. Vocal cord, left mid inferior, excision: - Squamous mucosa with atypia (favor reactive) and underlying fibrosis, negative for high-grade dysplasia. Procedures Flexible Laryngoscopy w/ Videostroboscopy VOICE AND SPEECH CHARACTERISTICS: Normal spoken speech, (+) moderate dysphonia, (+) moderate roughness, no breathiness, (+) moderate asthenia, (+) severe strain. Intelligibility: reduced. Resonance: balanced. Vocal Loudness: reduced. Breath Support: decreased. PROCEDURE: Indications: voice change PROCEDURE NOTE: FLEXIBLE LARYNGOSCOPY WITH STROBOSCOPY I recommended a flexible laryngoscopy with stroboscopy based on PE findings, and/or concern for mucosal wave details based upon history and/or for issues associated with hyperreflexic gag on mirror exam concerning for pathology. Risks, benefits, and alternatives were explained. The patient wishes to proceed and gives verbal consent. Patient is seated in the exam chair. After adequate topical anesthesia, I advance the flexible endoscope. The examination included evaluation of the minaya, vallecula, base of tongue, pyriforms, post-cricoid area, larynx and immediate subglottis. Findings : assessment of the nasopharynx, base of tongue/vallecula, pyriform sinuses, post-cricoid area and pharyngeal mar was without lesion or mass, pharyngeal wall contraction is normal and symmetric, and no pooling of secretions subglottic edema:2 (present), thick mucous: 2 (present), ventricular obliteration: 2 (present), erythema/hyperemia: 4 (complete), IA thickenin (mild), and TVC edema: 2 (moderate) Gross Arytenoid Movement: symmetric. Arytenoid Height: normal. Supraglottic Tension: lateral and ant/post. Symmetry: asymmetry. Amplitude: reduced: bilateral. Phase Closure: out of phase. Mucosal Wave Lateral Excursion/Secondary Wave: Bilateral Vocal Cord: severe restriction - The wave was limited to the most medial edge of the vocal fold. Periodicity: aperiodic. Closure: irregular. Time Spent Prep time on day of patient encounter: 10 minutes Time spent directly with patient, family or caregiver: 15 minutes Additional Time Spent on Patient Care Activities/Discussion with SALARY AND WAGE ADMINISTRATOR re care plan: 5 minutes Documentation Time: 10 minutes Other Time Spent: 0 minutes Total: 40 minutes Scribe Attestation By signing my name below, Roxana Mcrae , Scribe attest that this documentation has been prepared under the direction and in the presence of Shoshana Pablo MD. This medical note was created with the assistance of artificial intelligence (AI) for documentation purposes. The content has been reviewed and confirmed by the healthcare provider for accuracy and completeness. Patient consented to the use of audio recording and use of AI during their visit. [1] No family history on file. documented in this encounter [facility] Work Phone: 03-22-2025 mill manager Note Pt and at bedside educated on and provided with discharge instructions. Both state an understanding of the teaching and all questions answered at this time. [facility] 03-22-2025 Miscellaneous Notes Pt and at bedside educated on and provided with discharge instructions. Both state an understanding of the teaching and all questions answered at this time. documented in this encounter [facility] Work Phone: 03-22-2025 Hospital Discharg e instructions Melissa Young MD - 03/22/2025 10:25 AM EDT Images from the original note were not included. . Postoperative Care Instructions: Microdirect Laryngoscopy/Bronchoscopy with Laser Surgery for Laryngeal Mass/Lesions Postoperative Care: For your surgery, special microscopic instruments were used and an operating telescope was placed in your mouth to look at your vocal cords and trachea to treat your airway. No external incisions made. It is normal for your voice to be hoarse for several days or weeks after surgery while the healing process occurs. Please rest your voice for at least 3 days. This means that you are using your normal voice at a much lower volume than usual, without any straining, yelling, screaming, or singing. This typically sounds like a soft or breathy whisper. It is also important to avoid extended periods of voice use. Do not speak to anyone who is farther than an arm's length away, as this would require you to raise your voice. It is very important to avoid excessive coughing or throat clearing after surgery, as this will slow down the healing process. If you have an urge to cough that you cannot control on your own with relaxation techniques, you can purchase an [id number] cough suppressant to use, but make sure it does not interact with your other medications. Finally, make sure to drink plenty of water to stay well hydrated after surgery, as this will help to speed your recovery by keeping your secretions thin and your vocal cords moist. Use of cough lozenges is also allowed. Diet: You may resume your normal diet after surgery. You may want to start out with liquids and light meals or soft foods and advance to your usual diet as tolerated. Our Nurse will contact you a few days after surgery to schedule your follow up appointment, which is typically 3-6 weeks after surgery. For any questions or concerns, please call the respective office between the hours of 9am-4pm. Please call: Dr. Pablo's office @ [phone] Dr. Bullock's office @ [phone] Dr[address] Portillo's office @ [phone] If issues arise over the weekend or after hours, please call our hospital drum drier operator at [phone] and ask for the ENT resident regional owner operator truck driver. What to Expect Following Surgery: The following are some symptoms that may follow your recent surgery: Pain - Some mild pain is normal after surgery. As adequate pain control is necessary for healing, please take [id number] Tylenol or Motrin per the package directions as needed for pain. Occasionally, a narcotic pain medication is prescribed for your use after surgery. If this is the case, please take the medication only as directed. You may need to take an cksf-dqz-[id number] stool softener as narcotic pain medications can cause constipation. Massage, cold packs, relaxation techniques, listening to music, and positive thinking will also help control your postoperative pain. Taste disturbance and/or tongue numbness - Due to the surgical instruments used during surgery, you may experience tongue numbness and/or taste disturbance after surgery, but this is usually temporary. It may take 1-4 weeks to completely resolve. It is also normal for your tongue to feel swollen or bruised after surgery, and this will also resolve in a few days. Bleeding - For a few days after surgery, it is normal to cough up some blood in your mucus. However, if you experience continuous bright red bleeding from your mouth or if you are coughing up blood clots, please call your doctor's office immediately. If you are on any blood thinning medications, such as Aspirin, Plavix, or Coumadin, you may restart them immediately after surgery unless you were specifically told not to do so by your surgeon. Muscle aches/soreness - You may experience generalized muscle aches and/or soreness after surgery, and this is a normal effect of anesthesia. They should completely resolve after a few days. Swelling/throat tightness - If you were given steroid medication, this can help with swelling and should be taken as directed. The side effects from steroid use is typically minimal when taken for short periods, as used in these cases. If you have questions, please discuss with your pharmacist. documented in this encounter [facility] Work Phone: 03-22-2025 History and physical note Images from the original note were not included. History Of Present Illness Bert Yeung is a 74 y.o. male presenting with history of lung cancer recurrence on chemo. He has hoarseness since 09/2024 that is persistent despite treatment with antifungals and antibiotics. He was placed on reflux management and gaviscon. He reports that hoarseness is his primary concern. 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 May benefit from injection with prolaryn gel or plus. He will undergo speech therapy virtually after the procedure. TE Amador: PRIOR HISTORY Bert Yeung is a 74 y.o. male presenting for an initial visit with me for voice changes. Has a history of lung cancer and started chemotherapy. Voice changes started with treatment. He has hoarseness and throat pain starting in 09/2024. He was seen by Dr. Scott most recently on 12/11/24. He was started on reflux medications and noted to have leukoplakia of epiglottis, vocal cord, and erythroplakia of the left TVC, bowing of the vocal cords, and vibratory wave present on both TVCs. This was attributed likely due to coughing and not neoplastic. This did not improve with treatment. He has a port. The patient reports that his current chemo regimen has been tough. Persistent changes to his voice. Past Medical History Medical History[1] Surgical History Surgical History[2] Social History He reports that he has quit smoking. His smoking use included cigarettes. He has never used smokeless tobacco. No history on file for alcohol use and drug use. Family History Family History[3] Allergies Patient has no known allergies. Review of Systems Constitutional: Negative for fever. Cardiovascular: Negative. Negative for chest pain. Genitourinary: Negative. Skin: Negative. Psychiatric/Behavioral: Negative. All other systems reviewed and are negative. Physical Exam Constitutional: General: He is not in acute distress. Appearance: He is not ill-appearing. HENT: Right Ear: External ear normal. Left Ear: External ear normal. Nose: Nose normal. Mouth/Throat: Mouth: Mucous membranes are moist. Eyes: Pupils: Pupils are equal, round, and reactive to light. Pulmonary: Effort: Pulmonary effort is normal. Skin: General: Skin is warm and dry. Neurological: General: No focal deficit present. Psychiatric: Mood and Affect: Mood normal. Assessment & Plan HTN (hypertension) Hyperlipidemia Gastroesophageal reflux disease Ulcerative laryngitis Leukoplakia of larynx Patient and I discussed the risks, benefits and alternatives to surgery and all questions answered. Cleared to OR. Shoshana Pablo MD [1] No past medical history on file. [2] No past surgical history on file. [3] No family history on file. [facility] Work Phone: 03-22-2025 History and physical note Images from the original note were not included. History Of Present Illness Bert Yeung is a 74 y.o. male presenting with history of lung cancer recurrence on chemo. He has hoarseness since 09/2024 that is persistent despite treatment with antifungals and antibiotics. He was placed on reflux management and gaviscon. He reports that hoarseness is his primary concern. 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 May benefit from injection with prolaryn gel or plus. He will undergo speech therapy virtually after the procedure. TE Amador: PRIOR HISTORY Bert Yeung is a 74 y.o. male presenting for an initial visit with me for voice changes. Has a history of lung cancer and started chemotherapy. Voice changes started with treatment. He has hoarseness and throat pain starting in 09/2024. He was seen by Dr. Scott most recently on 12/11/24. He was started on reflux medications and noted to have leukoplakia of epiglottis, vocal cord, and erythroplakia of the left TVC, bowing of the vocal cords, and vibratory wave present on both TVCs. This was attributed likely due to coughing and not neoplastic. This did not improve with treatment. He has a port. The patient reports that his current chemo regimen has been tough. Persistent changes to his voice. Past Medical History Medical History[1] Surgical History Surgical History[2] Social History He reports that he has quit smoking. His smoking use included cigarettes. He has never used smokeless tobacco. No history on file for alcohol use and drug use. Family History Family History[3] Allergies Patient has no known allergies. Review of Systems Constitutional: Negative for fever. Cardiovascular: Negative. Negative for chest pain. Genitourinary: Negative. Skin: Negative. Psychiatric/Behavioral: Negative. All other systems reviewed and are negative. Physical Exam Constitutional: General: He is not in acute distress. Appearance: He is not ill-appearing. HENT: Right Ear: External ear normal. Left Ear: External ear normal. Nose: Nose normal. Mouth/Throat: Mouth: Mucous membranes are moist. Eyes: Pupils: Pupils are equal, round, and reactive to light. Pulmonary: Effort: Pulmonary effort is normal. Skin: General: Skin is warm and dry. Neurological: General: No focal deficit present. Psychiatric: Mood and Affect: Mood normal. Assessment & Plan HTN (hypertension) Hyperlipidemia Gastroesophageal reflux disease Ulcerative laryngitis Leukoplakia of larynx Patient and I discussed the risks, benefits and alternatives to surgery and all questions answered. Cleared to OR. Shoshana Pablo MD [1] No past medical history on file. [2] No past surgical history on file. [3] No family history on file. documented in this encounter [facility] Work Phone: 01-28-2025 History of Presen t illness Narrative Images from the original note were not included. ASSESSMENT AND PLAN: Bert Yeung is a 74 y.o. male presenting for an initial visit with a history of lung cancer recurrence on chemo. He has hoarseness since 09/2024 that is persistent after treatment with antifungals and antibiotics. He was placed on reflux management and has not tried gaviscon. He reports that hoarseness is his primary concern. He has difficulty with diet due to low appetite due to chemotherapy Assessment/Plan Today's examination to include stroboscopy demonstrates chronic presbylarynges We discussed treatment with antifungals and antibiotics with speech therapy vs scheduling a procedure in the OR. He would benefit from injection with prolaryn gel or plus. I would like to see the patient back for the procedures at a time that is convenient for him. He will undergo speech therapy virtually after the procedure. TE Amador: Reason For Consult No chief complaint on file. HISTORY OF PRESENT ILLNESS: Bert Yeung is a 74 y.o. male presenting for an initial visit with me for voice changes. Has a history of lung cancer and started chemotherapy. Voice changes started with treatment. He has hoarseness and throat pain starting in 09/2024. He was seen by Dr. Scott most recently on 12/11/24. He was started on reflux medications and noted to have leukoplakia of epiglottis, vocal cord, and erythroplakia of the left TVC, bowing of the vocal cords, and vibratory wave present on both TVCs. This was attributed likely due to coughing and not neoplastic. This did not improve with treatment. He has a port. The patient reports that his current chemo regimen is tough. Still has persistent changes to his voice. Past Medical History HTN, HLD, LPR Surgical History Wrist surgery, appendectomy, port placement Social History He has no history on file for tobacco use, alcohol use, and drug use. Allergies Patient has no allergy information on record. Family History No family history on file. Review of Systems All 10 systems were reviewed and negative except for above. Physical Exam ENT Physical Exam Constitutional Appearance: patient appears well-developed and well-nourished, Head and Face Appearance: head appears normal and face appears normal; Ear Auricles: right auricle normal; left auricle normal; Nose External Nose: nares patent bilaterally; Oral Cavity/Oropharynx Lips: normal; Neck Neck: neck normal; neck palpation normal; Respiratory Inspection: no retractions visible; Cardiovascular Inspection: no peripheral edema present; Neurovestibular Mental Status: alert and oriented; Psychiatric: mood normal; Cranial Nerves: cranial nerves intact; Last Recorded Vitals There were no vitals taken for this visit. -------- Procedures Flexible Laryngoscopy w/ Videostroboscopy VOICE AND SPEECH CHARACTERISTICS: Normal spoken speech, (+) moderate dysphonia, (+) severe roughness, (+) mild breathiness, (+) moderate asthenia, (+) severe strain. Intelligibility: reduced. Resonance: balanced. Vocal Loudness: reduced. Breath Support: decreased. PROCEDURE: Indications: voice change PROCEDURE NOTE: FLEXIBLE LARYNGOSCOPY WITH STROBOSCOPY I recommended a flexible laryngoscopy with stroboscopy based on PE findings, and/or concern for mucosal wave details based upon history and/or for issues associated with hyperreflexic gag on mirror exam concerning for pathology. Risks, benefits, and alternatives were explained. The patient wishes to proceed and gives verbal consent. Patient is seated in the exam chair. After adequate topical anesthesia, I advance the flexible endoscope. The examination included evaluation of the minaya, vallecula, base of tongue, pyriforms, post-cricoid area, larynx and immediate subglottis. Findings : assessment of the nasopharynx, base of tongue/vallecula, pyriform sinuses, post-cricoid area and pharyngeal mar was without lesion or mass, pharyngeal wall contraction is normal and symmetric, and no pooling of secretions subglottic edema:2 (present), thick mucous: 2 (present), granuloma: 2 (present), ventricular obliteration: 2 (present), erythema/hyperemia: 4 (complete), IA thickenin (mild), TVC edema: 2 (moderate), and diffuse laryngitis: 1 (mild) Gross Arytenoid Movement: symmetric. Arytenoid Height: normal. Supraglottic Tension: lateral. Symmetry: asymmetry. Amplitude: reduced: bilateral. Phase Closure: out of phase. Mucosal Wave Lateral Excursion/Secondary Wave: Bilateral Vocal Cord: severe restriction - The wave was limited to the most medial edge of the vocal fold. Periodicity: aperiodic. Closure: irregular. Time Spent Prep time on day of patient encounter: 5-10 minutes Time spent directly with patient, family or caregiver: 25 minutes Additional Time Spent on Patient Care Activities/discuss care plan with SALARY AND WAGE ADMINISTRATOR: 5 minutes Documentation Time: 10 minutes Other Time Spent: 0 minutes Total: 50 minutes Scribe Attestation By signing my name below, I Roxana Castromacy , Scribe attest that this documentation has been prepared under the direction and in the presence of Shoshana Pablo MD. 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, 2024 10:15am Encounter for chemotherapy management chronic December 12, 2024 10:15am Malignant neoplasm of overlapping sites of right bronchus and lung chronic December 12, 2024 10:15am Staghorn renal calculus chronic J anuary 2024 10:15am Candidiasis of mouth and esophagus acute January 23, 2025 10:15am Diarrhea chronic January 23 10:15am Drug-induced pneumonitis chronic January 23, 2025 10:15am Encounter for chemotherapy management chronic January 232024 10:15am Malignant neoplasm of overlapping sites of right bronchus and lung chronic January 232024 10:15am Staghorn renal calculus chronic M arch 12th, 2025 10:15am Candidiasis of mouth and esophagus acute February 13, 2025 9:15am Diarrhea chronic February 13 9:15am Drug-induced pneumonitis chronic February 13, 2025 9:15am Encounter for chemotherapy management chronic February 9:15am Malignant neoplasm of overlapping sites of right bronchus and lung chronic February 9:15am Staghorn renal calculus chronic A pril 2024 9:15am Drug-induced pneumonitis chronic February 13, 2025 9:55am Encounter for chemotherapy management chronic February d2024 9:55am Malignant neoplasm of overlapping sites of right bronchus and lung chronic February d2024 9:55am Staghorn renal calculus chronic A pril 2024 9:55am Hypokalemia resolved February 13 9:55am Radiation-induced esophagitis resolved February 13, 2025 9:55am Chest pain inactive February 13 9:55am Right-sided chest wall pain inactive February 13, 2025 9:55am Encounter for antineoplastic immunotherapy deleted February 13, 2025 9:55am Encounter for coordination of complex care deleted February 13, 2025 9:55am Epistaxis deleted February 13 9:55am Malignant neoplasm of upper lobe, right bronchus or lung deleted February 13, 2025 9:55am [facility] Work Phone: 1(835) 585-601101-28-2025 History of Present illness Narrative* Froylan Scott MD - 12/11/2024 11:20 AM EST Images from the original note were not included. Subjective Patient ID: Bert Yeung is a 74 y.o. male who presents for Epistaxis (Nose Bleed) (6 weeks check) F/U to rescope after starting reflux regimen. Family History Problem Relation Name Age of Onset Cancer Mother My mother Diabetes Mother My mother Cancer Sister montrell Sellers Cancer Brother arcenio Garcias Active Ambulatory Problems Diagnosis Date Noted Venous insufficiency 10/17/2024 Poor venous access 10/17/2024 Malignant neoplasm of overlapping sites of right lung (CMS/HCC) 10/17/2024 Myelopathy, spondylogenic, cervical 08/28/2013 Resolved Ambulatory Problems Diagnosis Date Noted No Resolved Ambulatory Problems Past Medical History: Diagnosis Date Appendicitis Hyperlipidemia (CMS/HCC) Hypertension (CMS/HCC) Lung cancer (CMS/HCC) Nosebleed Pneumonia Tonsillitis Past Surgical History: Procedure Laterality Date APPENDECTOMY CARPAL TUNNEL RELEASE COLONOSCOPY PORTACATH PLACEMENT 10/25/2024 WRIST SURGERY Right No Known Allergies Current Outpatient Medications on File Prior to Visit Medication Sig Dispense Refill Berberine Chloride 500 MG capsule Take by mouth carvedilol (Coreg) 3.125 MG tablet Take 3.125 mg by mouth in the morning and 3.125 mg before bedtime. cholecalciferol (Vitamin D-3) 50 MCG (1999) capsule Take 2,000 Units by mouth Daily famotidine (Pepcid) 20 MG tablet Take 1 tablet (20 mg) by mouth at bedtime 90 tablet 0 hydroCHLOROthiazide (HYDRODiuril) 25 MG tablet Take 25 mg by mouth Daily HYDROcodone-acetaminophen (Hopewell) 5-325 MG tablet 1 tablet losartan (Cozaar) 25 MG tablet Take 25 mg by mouth Daily omega-3 (FISH OIL) 300 MG capsule Take by mouth Daily omeprazole (PriLOSEC) [address] capsule Take 1 capsule (40 mg) by mouth in the morning. Take before meals. Do not crush or chew.. 90 capsule 0 ondansetron (Zofran) 8 MG tablet TAKE 1 TABLET EVERY 8 HOURS NEEDED FOR NAUSEA AND VOMITING ramucirumab (Cyramza) 100 MG/10ML solution Infuse into a venous catheter simvastatin (Zocor) 80 MG tablet Take 80 mg by mouth at bedtime No current facility-administered medications on file prior to visit. Objective Last Recorded Vitals Vitals: 12/11/24 1133 BP: 158/77 Pulse: 81 ENT Physical Exam Constitutional Appearance: patient appears well-developed, well-nourished and well-groomed, Communication/Voice: communication appropriate for developmental age; vocal quality normal; Patient ID: Bert Yeung is a 74 y.o. male. Procedures A diagnostic flexible fiberoptic laryngoscopy was performed. The flexible fiberoptic laryngoscope was placed into the nose and advanced to the level of the tip of the epiglottis. Examination of the larynx including both surfaces of the epiglottis false and true vocal folds, arytenoids and surrounding mucosal surfaces shows left leukoplakia and right erythroplakia with an erosion into the RT TVC. There is also marked bowing. Normal bilateral true vocal fold motion is present. Bilateral piriform sinuses and base of tongue appear without lesion Assessment/Plan Diagnoses and all orders for this visit: Lesion of vocal cord Pt has been hoarse since starting chemo for lung CA. No improvement on an aggressive reflux regimen. The lesions of the TVS do not have a typical neoplastic appearance. I will have Mr Yeung see Dr Pablo, a packerhead machine operator at , for his opinion. [id number]* Diagnosis Onset Date Resolution Status Admit Date Candidiasis of mouth and esophagus acute November 19 9:29am Drug-induced pneumonitis chronic November 19, 2024 9:29am Malignant neoplasm of overlapping sites of right bronchus and lung chronic November 19 9:29am Staghorn renal calculus chronic J anuary 2024 9:29am Diarrhea deleted November 19 9:29am Encounter for chemotherapy management deleted November 19 9:29am Epistaxis deleted November 19 9:29am Candidiasis of mouth and esophagus acute December 12 10:15am Drug-induced pneumonitis chronic December 12, 2024 10:15am Malignant neoplasm of overlapping sites of right bronchus and lung chronic December 12, 2024 10:15am Staghorn renal calculus chronic J anuary 2024 10:15am Diarrhea deleted December 12, 2024 10:15am Encounter for chemotherapy management deleted December 12 10:15am Candidiasis of mouth and esophagus acute January 23, 2025 10:15am Drug-induced pneumonitis chronic January 23, 2025 10:15am Malignant neoplasm of overlapping sites of right bronchus and lung chronic January 23 10:15am Staghorn renal calculus chronic M arch 2024 10:15am Diarrhea deleted January 23 10:15am Encounter for chemotherapy management deleted January 23, 2025 10:15am Candidiasis of mouth and esophagus acute February 13, 2025 9:15am Drug-induced pneumonitis chronic February 13, 2025 9:15am Malignant neoplasm of overlapping sites of right bronchus and lung chronic February 13 9:15am Staghorn renal calculus chronic A pril 2024 9:15am Diarrhea deleted February 13 9:15am Encounter for chemotherapy management deleted February 13, 2025 9:15am Drug-induced pneumonitis chronic February 13, 2025 9:55am Malignant neoplasm of overlapping sites of right bronchus and lung chronic February 13 9:55am Staghorn renal calculus chronic A pril 2024 9:55am Hypokalemia resolved February 13 9:55am Radiation-induced esophagitis resolv ed February 13, 2025 9:55am Chest pain inactive February 13 9:55am Right-sided chest wall pain inactive February 13, 2025 9:55am Encounter for antineoplastic immunotherapy deleted February 13, 2025 9:55am Encounter for chemotherapy management deleted February 13, 2025 9:55am Encounter for coordination o f complex care deleted February 13, 2025 9:55am Epistaxis deleted February 13 9:55am Malignant neoplasm of upper lobe, right bronchus or lung deleted Feb 9:55am [facility] Work Phone: 1(298) 799-543401-06-[address] [facility] [place] [place] [address] Cancer Center Note Signed Patient: Bert Yeung MR#: [id number] : 1950 Acct:[id number] Age/Sex: 73 / M Type: DEP AMB Date of Service: 11/19/24 Copies to: Howie Smith DO~ Assessment & Plan A/P (1) Encounter for chemotherapy management: Plan: Initial diagnosis July 2021: No distant metastatic disease on PET/CT for staging (bilateral mediastinal and subcarinal adenopathy noted). Concurrent chemoradiation commenced 08/06/2021--Carboplatin AUC 2 IV and Paclitaxel 45mg/m2 IV weekly x 6-7 weeks. Tolerated well. He completed Cycle 6 weekly Carboplatin/Paclitaxel therapy 09/10/2021 and radiotherapy complete on 09/16/2021. Cycle 1 day 1 09/30/2021 durvalumab 10mg/kg IV every 2 weeks immunotherapy as noted above. Changed to flat dose durvalumab 1500 milligrams IV every 4 weeks with 11/23/2021 dose. 08/04/2022: Continue durvalumab 1500mg IV every 4 weeks in addition to Medrol Dosepak day after eachinfusion given improvement of pneumonitis symptoms. End of 1 year of therapy 09/01/202208/2024: Follow-up of 6-month restaging scans and review of symptoms. Review images and reports over total 45-minute visit. 09/27/2024: Progression of disease on PET/CT, reviewed and signed informed consent for docetaxel 75mg/m2 IV day 1 with ramucirumab 10 mg/kg IV day 1 every3 weeks for total of 6 cycles followed by ramucirumab maintenance if response. Commence therapy within the next week. 10/17/2024: Patient received first cycle of docetaxel 75 mg/m? with ramucirumab 10 mg/kg IV day 1 every 3 weeks for first cycle on 10/09/2024. He had significant fatigue, epistaxis, and mild leukocytosis with arthralgias with growth factor support. Given his significant symptoms we are dose reducinghis second cycle of docetaxel to 60 mg/m? with the same dose of ramucirumab for cycle 2 on 10/30/2024. It is also reasonable to drop his growth factor support with dose reduction. I will see him cycle 2-week 2 to review toxicities and to coordinate restaging imaging. He may return sooner if new issues arise. If he has recurrent epistaxis we may consider ENT referral. 11/08/2024: Tolerating Docetaxel now at 20% dose reduction, full dose ramucirumab with no growth factor. Persistent cough, hoarseness and intermittent epistaxis with no lesion on ENT eval (Dr. Scott). 1 week trial ofDiflucan for hoarseness and cough. Followup with [id number] for response, restaging after first 3 cycles and f/u with pr cycle 4. Moderate complexity 35 minute followup. 11/19/2024: Tolerating Docetaxel now at 20% dose reduction, full dose ramucirumab with no growth factor. Cough and hoarseness improved since cycle #2 after Diflucan trial. Reports diarrhea after treating constipation, no concerns with electrolyte imbalance on today's cmp. cbc not yet resulted. Plan for chemo tomorrow as long as cbc is within parameters. Followup with Dr. Hess cycle [address] chest. (2) Malignant neoplasm of overlapping sites of right bronchus and lung: Plan: Stage IIIB right upper lobe (overlapping sites involving right mainstem bronchus). No distant metastatic disease on initial PET/CT for staging. --09/08/2023: Now 2 years from diagnosis with no recurrence and stable right upper lobe bronchiectasis on restaging scans. We will extend surveillance follow-up to every 6 months. 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 No distant metastatic disease on PET/CT, therefore we coordinated chemoradiation with weekly carboplatin/paclitaxel. He commenced weekly Carboplatin/Paclitaxel with radiation on 08/06/2021 and today he will be receiving #6 Carboplatin/Paclitaxel and is scheduled to completed radiation therapy on 09/16/2021. 08/12/2021: No toxicities other than mild increase in creatinine. 08/27/2021: Grade 1 odynophagia with decreased appetite. Added sucralfate slurry 1 g every 6 hours as needed for remainder of chemoradiation. 09/10/2021: Grade 1 fatigue; otherwise no significant toxicities to chemotherapy; weight is stable;stable anemia. Normal electrolytes. Minimal nausea and no significant pain other than some acid reflux like symptoms; well controlled with Prilosec. --Patient completed Cycle 6 weekly Carboplatin/Paclitaxel therapy (09/10/2021) and radiotherapy to complete on 09/16/2021. 09/24/2021: Reviewed informed consent for Durvalumab maintenance therapy 10mg/kg IV every 2 weeks x1 year (ok to change to monthly therapy if well tolerated). 10/14/2021: Patient was sent to ER for right chest wall pain on 10/07 following first durvalumab dose 09/30/2021. Noted to have regression of prior right middle lobe lesion and adenopathy with small adjacent infiltrate (this may be postradiation change but patient was placed on antibiotics). His pain has now completely resolved with no significant cough. Otherwise tolerating immunotherapy well. Wewill continue him on every 2-week dosing until receivingwhether he has recurrent chest discomfort or symptoms on durvalumab. Next follow-up with me in 4 weeks for toxicity check on immunotherapy. We will not repeat his chest CT since this was just performed in emergency department. ~~~~~~~~~~~~~~~~~~~~~~~~ Last dose 1 year of maintenance durvalumab 09/01/2022. I will schedule restaging CT chest and follow-up with me in 3 months for survivorship visit. Hemay return sooner if new symptoms arise. Mod complexity visit over 35 minutes to review restaging scans. 11/04/2022: Stable intermittent dyspnea and cough on low-dose prednisone 20 mg daily followed by Dr. Ann who sees him in mid November. No residual symptoms concerning for immunotherapy related toxicity other than pneumonitis noted below. CT scan shows stable postradiation changes of right upper lobe and bilateral perihilar areas. No areas concerning for metastatic disease. His last dose of durvalumab was 09/01/2022. Next follow-up with restaging CT chest with contrast and labs including CBC, CMP, TSH, and free T4 in January 2023 but hemay return sooner if new symptoms arise concerning for recurrence. Okay for himto see nurse practitioner and review survivorship plan at that time. Moderate co mplexity 35-minute follow-up. 02/03/2023: Cough and dyspnea are slowly improving since slow titration of prednisone, now 5 mg daily. Postradiation changes but no progression on chest CT. Continue every 3-month surveillance. Low complexity follow-up 25 minutes. 05/05/2023: Cough and dyspnea stable although now maintaining prednisone 10 mg daily, following withDr. Reid. Postradiation changes without progression on chest CT but persistent volume loss and small right pleural effusion. Incidental note of left kidney staghorn calculus which is asymptomatic. Defer evaluation of this and mild hypokalemia to primary care. Next follow-up with chest CT with contrast will be deferred to 4 months and I will review symptoms, exam, and results of chest CT at that time. Low complexity follow-up 25 minutes. 09/08/2023: Patient has stable intermittent cough and dyspnea but no recent infections. Has been titrated off maintenance prednisone and chest CT was reviewed showing postradiation changes without new nodules or progression of known infiltrates. He reviewed the staghorn calculus with primary care who is decided to continue surveillance only. Next follow-up with CT chest with contrast is deferred to 6 months but he may return sooner if new issues arise. Low complexity follow-up 25 minutes. 03/08/2024: He still has intermittent right-sided chest pain but cough and dyspnea have improved. Mainly exacerbated by windy conditions but no limitations of activities. Chest CT was reviewed and is stable and we will continue monitoring every 6 months. No nodules suggestive of recurrence. He may return sooner if new issues arise. Moderate complexity 30-minute follow-up. 09/12/2024: No progression of pulmonary symptoms but most recent CT scan shows some mild increase of residual mass concerning for possible progression. He will be sent for PET/CT for further evaluation and if FDG avidity noted we will set up diagnostic bronchoscopy. Patient is in agreement with this plan over this high complexity 45-minute follow-up for review of images and reports in thecoordinate PET/CT. 09/27/2024: No progression of pulmonary symptoms but PET/CT confirms peripheral FDG enhancement with max SUV 9.5 with right supraclavicular adenopathy, hilar and mediastinal adenopathy. This appears most consistent with recurrence of lung carcinoma and due to the location of the necrotic mass and adenopathy this would be challenging for rebiopsy. Since he had poor tolerance of prior durvalumab with immunotherapy related pneumonitis, we decided to proceed with second line therapy with docetaxel 75 mg/m? IV day 1 with ramucirumab 10 mg/kg day 1 for 6 cycles, then ramucirumab maintenance of response. We reviewed images and reports of his PET/CT and discussed informed consent. Next follow-upwith CBC and CMP for toxicity visit 1 week after starting docetaxel with Cyramzatherapy. High complexity visit over 45 minutes with additional G2212 complexityof care for preparation of new chemotherapy orders and to review consent. 10/17/2024: As noted above patient had increased fatigue, dyspnea with exertion, and epistaxis with his first cycle of docetaxel Cyramza. Dose reduction of docetaxel by 20% will be planned for cycle 2on 10/30/2024. Continue full dose Cyramza. Restaging after 3 cycles. Moderate complexity 35-minute toxicity follow-up. 11/08/2024: Improved fatigue and dyspnea on exertion with docetaxel dose reduction cycle 2. Still intermittent epistaxis after no lesion seen on nasopharyngoscopy. 1 week fluconazole 100mg po daily trial and f/u with [facility] C3W1, with me after restaging chest CT C4W1. 11/19/2024: Tolerating Docetaxel now at 20% dose reduction, full dose ramucirumab with no growth factor. Cough and hoarseness improved since cycle #2 after Diflucan trial. Reports diarrhea after treating constipation, no concerns with electrolyte imbalance on today's cmp. cbc not yet resulted. Plan for chemo tomorrow as long as cbc is within parameters. Followup with Dr. Hess cycle [address] chest[address] (3) Epistaxis: Plan: Patient had an episode of epistaxis while sleeping about 3 days ago when his awakened him withquite a bit of blood on the pillow but no active bleeding. This may be related to his Cyramza and he has had prior epistaxis in the past. Since he has not had a recurrent episode we are treating withair humidifier and Vaseline to the nasal membranes. 11/08/2024: Due to recurrent episodes we referred him to ENT--no lesions found on nasopharyngoscopyfor cautery of the nasal mucosa. We will see response to 1week fluconazole trial and docetaxel dosereduction. 11/19/2024: Symptoms improved. (4) Candidiasis of mouth and esophagus: Plan: oral white plaque with persistent cough and hoarseness. Trial fluconazole x 1 week with reassessment by [facility] prior to cycle 3 docetaxel/cyramza. If symptoms improved, renew prescription and continue during remaining cycles of docetaxel (planned total 6 cycles before cyramza maintenance. 11/19/2024: Symptoms improved (5) Drug-induced pneumonitis: Plan: Recurrent pneumonitis as addressed above. Medrol Dosepak for 1 week following next durvalumab and reassessment with next practitioner to see if this alleviates his symptoms. 02/17/2022: see above. Near resolution of symptoms with addition of Medrol Dosepak. He is back to hisbaseline dyspnea on exertion only with increased activity 05/05/2022: Intermittent worsening of cough and dyspnea between cycles but much improved with medroldose pack each cycle. 08/04/2022: I reviewed progress note from consultation with pulmonary medicine Dr. Ann who recommends recurrent courses of prednisone 40 mg daily for 7 days, 30 mg daily for 7 days, 20 mg daily for7 days, then 10 mg daily for 7 days. This will be repeated once monthly until pneumonitis improved off immunotherapy within the next 2 months. He will have follow-up appointment withDr. Ann next month. 11/04/2022: Patient does not feel that his cough and dyspnea is improved since end of durvalumab with last dose 09/01/2022, however he appears to be less symptomatic on exam today. He has maintained on prednisone 10 mg daily until follow-up with Dr. Ann next month. Imaging shows stable postradiation changes, likely exacerbated by prior immunotherapy. We will continue to follow with every 3-month scans. 02/03/2023: Cough and dyspnea are slowly improving since slow titration of prednisone, now 5 mg daily. Postradiation changes but no progression on chest CT. Continue follow-up with Dr. Ann as directed. 05/05/2023: Patient notes most recent follow-up with with Dr. Mathews and his current prednisone dose is 10 mg daily. Still no progression on chest CT but persistent postradiation changes and right lung volume loss. Continue follow- upwith pulmonary medicine as scheduled. 09/08/2023, 03/08/2024, 09/12/2024: No new symptoms. Titrated off prednisone fornow and will continue follow-up with Dr. Mathews as needed. 09/27/2024: Progression of disease on PET/CT with no new symptoms. Will utilizea noncheckpoint inhibitor regimen for recurrence of disease due to poor tolerance of durvalumab. Will continue to followpulmonary status closely. 10/17/2024, 11/08/2024, 11/19/24: No worsening of symptoms after initiation of docetaxel and Cyramza as noted above. (6) Staghorn renal calculus: Plan: Left kidney staghorn calculus noted on April 2023 imaging--partial imaging on current CT but no indication for intervention at this time. Patient does not have any symptoms but has had a history of nephrolithiasis. Continue surveillance with primary care Dr. Smith. (7) Diarrhea: Plan: 11/19/2024: Symptoms already improving, had diarrhea for 4-5 days after treating constipation. Informed to try natural methods to help alleviate constipations. Informed to take Imodium 2 tabs after each first loose stool then 1 tab for eachloose stool thereafter max 8 tabs. Increase oral fluid intake. Call if symptoms worsen. Orders: Orders CT chest w con 3 Weeks C34.91 - Malignant neoplasm of unspecified part of rightbronchus or lung, Z01.89 - Encounter for other specified special examinations Patient Instructions: Restaging CT chest in 3wks follow up with Dr Hess after. May move cycle #4 to if schedule permits. CHEMO PLAN Treatment Plan Ramucirumab & Docetaxel Q21D Clinical Indication No Indication Cycle Number Last Admin 2 of 6 Cycle Day Next Admin 21 of 21 No Active Chemotherapy History of Present Illness HPI 11/19/2024: Néstor is ambulatory to the clinic with his spouse. He is scheduled for cycle #3 of chemotherapy tomorrow. He states he felt much better after cycle2 compared to cycle #1. He states he had constipation initially then took stool softeners and then has had diarrhea for about 4-5 days and took the Imodium but only up to 4 tabs daily. Informed to to take 2 tabs with first loose stool then 1tab after each loose stool thereafter max 8 tabs daily. He states his symptomsare improving loose stools less frequent. He states his voice remains hoarse, but much improved, he is easily understood with communication. He reports drinking a lot of water and plans to get fluids containing electrolytes.Denies current pain, reports intermittent stabbing pain right chest wall, alleviated quickly withposition changes, chronic since diagnosis. Appetite fair, eats t/o the day, smaller amounts. Weightloss of about 8 lbs since September. Reports sobwith activity and while coughing 5-08/23, symptoms im proved since his last visit. Denies problems with voiding concerns or neuropathy. 11/08/2024: Néstor is here for cycle 2, day 10 followup after dose reduction ofDocetaxel by 20% with full dose Cyramza. Infusion port placed without difficulty and he notes improvement of prior fatigue and no joint aches with holding Neulasta. He saw Dr. Scott of ENT with no obvious source of noseb leedsor other abnormalities seen on nasopharyngoscopy. His hoarseness and cough is improved but still not resolved. He appears to have a white plaque coating overtongue and we will give him a trial of fluconazole 100mg po daily x 1 week and have him followup with [facility] prior to cycle 3 to see if coughand hoarseness improved. She may order followup CT Chest to assess response prior to cycle 4 when Iwill followup results. Moderate complexity 35 minute followup to review toxicities on chemo + Cyramza. 10/17/2024: Néstor received cycle 1, day 1 of docetaxel 75mg/m2 with Cyramza 10 mg/kg IV patient on 10/09/2024. He is scheduled for general surgery evaluation for infusion port placement tomorrow. Over the past week he has had marked fatigue with mild increased dyspnea on exertion and relatively stable cough. About 3 nights ago he had a nosebleed in the middle the night and his awakened him to the pillow with an extensive amount of blood. This resolved spontaneously and he has not had any further nosebleeds. No significant bruising and no hematuria or bright red blood per rectum. He denied any nasal trauma but is humidifying the air and using Vaseline in the nostrils. We discussed potent ially referring to ENT for cauterization of a vessel if he has recurrent episodes. Otherwise laboratories were reviewed with mild leukocytosis(with growth factors given first cycle), normal hemoglobin and platelets, normalrenal and hepatic function. We will plan 20% dose reduction docetaxel and will hold growth factors due to generalized aching and mild leukocytosis for next scheduled therapy on 10/30/2024. I will see him cycle 2-week 2 to review toxicities and we will likely plan restaging imaging around that time. He may return sooner if new issues arise. Moderate complexity 35-minute follow-up to review toxicities. 09/27/2024: Néstor is here for 2-week follow-up to go over PET/CT and discuss further therapy due to results showing progression of disease. He has no interval change of his COPD with intermittent cough. PET/CT images and reports were reviewed with the patient and showing peripheral FDG avid mass in the right upper lobe with hilar, mediastinal, and right supraclavicular adenopathy consistentwith progression of disease. No distant metastases noted and there is nonspecific focus of uptake in the left gluteal muscle SUV 5.2 that is indeterminate. The location of the mass would be challenging to biopsy and increased SUV levels within the right upper lobe are most consistent with recurrence of disease. 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 Goal of therapy is palliation of symptoms and prolongation of life but not curative. Hewill follow- up with pr cycle 1 week 2 for toxicity visit. High complexity 45-minute visit to review images and reports of PET/CT and counseling for docetaxeland Cyramza therapy. G2212 increased care complexity for preparation of orders. Today we reviewed chemotherapy counseling for docetaxel and Cyramza. Common toxicities were reviewed to include allergic reaction/infusion reactions, rashes, myelosuppression, fatigue, nausea, vomiting, constipation, diarrhea, mouth sores, and alopecia. Other toxicities may include hypertension, impaired wound healing, pneumonitis, neurologic, hepatic and renal toxicities. The patient signed informed consent and will follow-up as directed. 09/12/2024: Bert presents for 6-month followup for prior stage III lung cancerdiagnosed 3 years ago. He has unchanged right sided upper chest pain that resolves with deep breaths and he has been followed by Dr. Valencia of pulmonary medicine. No change in his current management of COPD and pneumonitis. No recent infections or hospital admissions. No urinary issues with asymptomatic left kidney staghorn calculus. Laboratories show normal CBC, normal renal and hepatic function. I reviewed Chest CT from 09/10/2024 imaging and report showing right upper lobe residual mass measuring 4.1 x 4.8 x 3.9 cm once measuring 3.1 x 3.6 x 3.0 cm in area of prior radiation with associated bronchiectasis. Indeterminate for progression of disease. I recommended PET/CTfor further evaluation and if there is anyFDG avidity we will coordinate repeatbronchoscopy to determine if recurrence. He will follow-up with me after PET/CTin the next 1 to 2 weeks to review results and further plan. High complexity 45minute follow-up for review of images and reports and to set up PET/CT for further evaluation. ~~~~~~~~~~~~~~~~~~~~See prior followup notes for prior surveillance visits 11/04/2022: Fer is here for 3-month follow-up and review of CT chest after completing last dose 09/01/2022 of 1 year adjuvant durvalumab after concurrent chemoradiation. His dyspnea and cough recurintermittently and he remains on low- dose prednisone 10 mg daily with follow-up planned with Dr. Ann in mid November. He has not had any further ER visits or evidence of infection. No nausea/vomiting, diarrhea, bone pain, and immunotherapy labs normal. We will recheck his thyroid function tests with CBC and CMP at his 3-month follow-up. We reviewed images and reports of CT scans of chest from April, July, and most recent 11/01/2022 restaging scans. He has stable soft tissue prominence inthe right hilum and to a lesser extent the left hilum. Airspace opacities in the right perihilar distribution of the right upper lobe with a lesser extent inthe left perihilar region is unchanged compared to prior exam. Stable 13 mm focus of hypoattenuation in right hepatic lobe favoring cyst. 1.6 cmstone in the left renal pelvis. No obvious bony metastatic lesions. The patient denies any back pain or dysuria/hematuria. We will plan to follow-up exam, labs, and imaging in 3 months. He may returnsooner if signs or symptoms of recurrence. Moderate complexity 35-minute follow-up visit for reviewof symptoms, labs, and images after completing 1 year of durvalumab maintenance therapy. 08/04/2022: Bert is here for follow-up on durvalumab maintenance therapy. He has 2 more doses 1 today and 1 in 4 weeks then will complete his 1 year maintenance therapy. He was seen by Dr. Ann of pulmonary medicine who has prescribed serial prednisone tapers for pneumonitis (40 mg x 1 week, 30 mg x 1 week, 20 mg x 1 week, 10 mg x 1 week and repeat each month). His dyspnea and cough has somewhat stabilized since the steroid courses, although he had a coughing fit yesterday that lasted about3 hours. He did not seek any furtherevaluation in the emergency room and this has now resolved. He is currently on 30 mg daily of his prednisone without any significant cough or dyspnea greater than baseline. Otherwise no immunotherapy related toxicities such as rash or diarrhea. We reviewed his restaging CT chest from 08/02/2022 that shows persistent consolidative changes in the right upper lobe with loculated pleural effusion that is unchanged. Prior cavitary component has essentially resolvedsince prior study with stable scarring in the left hilar region. No new pulmonary nodules are noted. Labs show mild leukocytosis related to his steroids but otherwise stable hemoglobin and normal platelet count. Renal and hepatic function normal and no abnormalities of thyroid or adrenal function. Hewill continue 2 further cycles of therapy with durvalumab then stop. Follow-up in 3 months with contrast chest CT. He may return sooner as needed. Moderate complexity 35-minute follow- up visit for review of images and reports of CT and discussion of further therapy. 05/05/2022: Improvement of prior right chest wall pain with use of Medrol Dosepaks after each cycle of durvalumab. Stable dyspnea and cough. No other immunotherapy related toxicities other than pneumonitis. Restaging CT Chest reviewed--primary lesion similar size but more cavitary with surrounding ground glass opacities in prior radiation field. Will continue current durvalumab maintenance. Next f/u 3 months with contrast chest CT. End of therapy will be 08/2022 (sooner if unable to tolerate dueto pneumonitis--tolerable with brief steroid course each cycle. ~~~~~~~~~~~~~~~~~~~ 11/11/2021: Bert presents with his for follow-up. His severe right-sided chest pain and dyspnea has now completely resolved from last visit. He has not had any suggestive toxicities from durvalumab--no diarrhea, skin rashes, or recurrent dyspnea. He has returned to normal performance status and denies any fatigue. We reviewed his laboratories showing no immunotherapy related endocrine toxicities. Since he is now at normal baseline, I will give his 2-week dosing of durvalumab today then change to every 4-week dosing. His next follow-up with me will be in 6 weeks and he will have restaging CT chest in lateFebruary unless new symptoms arise. 10/14/2021: Bert was sent to ER 1 week ago (10/07/2021) after presenting with severe right-sided chest pain for about 1 week. He did not report worsening with inspiration but was worse with eating. Chest CT showed regression of priorright middle lobe tumor with internal necrosis and regression of prior adenopathy. There was an infiltrate posterior to his mass and no evidence of pulmonary embolism. He completed a course of azithromycin and notes that his chest pain is now completely resolved. Hehas no dyspnea with exertion or cough. Otherwise tolerated initial Durvalumab dose well--few loose stools the evening of his dose but no anny diarrhea, no skin rashes, and laboratories are stable. He also notes that Dr. Smith recommended starting N-acetylcysteine supplementation for his immunity,however I asked him to hold this for now sincehe has only recently started durvalumab and I will research whether this is indicated with his immunotherapy. --We will continue every 2-week durvalumab to see if he has any further toxicities, then follow-up in 1 month. If well-tolerated we will change to every 4-week dosing. 09/24/2021: Bert presents with his to discuss commencing immunotherapy after completing 6 weeks of concurrent chemoradiation (last dose chemo 09/10, last radiation 09/16). Fatigue improved but he has had 3 episodes of epistaxis over the past week (longest lasting about 6-7 minutes). Improved with saline nasal spray--offered ENT eval but he wants to observe. Mild dyspnea on exertionand cough.Today we discussed immunotherapy maintenance with Durvalumab over one year (initially every 2 weeks, then every 4 weeks if well tolerated). Goal of therapy is curative. --Today we reviewed immunotherapy (checkpoint inhibitor) counseling for Durvalumab. Common toxicities were reviewed to include infusion reactions and allergic reactions, fatigue, skin rashes, visual and ocular toxicities, diarrhea, abdominal pain from pancreatitis, and abnormal thyroid, adrenal, and pituitary function. Other toxicities may include pneumonitis, sexual side effects, neurologic, hepatic and renal toxicities. The patient signed informed consent and will follow-up as directed. I will see him C2D1 durvalumab for tox check. 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 He has tolerated his treatment exceptionally well and has had very few side effects/toxicities to therapy. He reports good appetite, stable weight.Essentially has no pain and has only required 4 doses of Zofran for breakthroughnausea. He has mild GERD-like symptoms, well controlled with Prilosec. Specifically denies any issues with headaches, fever/chills, cough, shortness ofbreath, bowel/bladder problems, peripheral neuropathy, skin rash or lower extremity edema. --He will complete radiotherapy on Tuesday, September 16, 2021 and his last cycle (#6) weekly Carbo/Taxol will be given today. 08/27/2021: Here for week for follow-up of weekly carboplatin paclitaxel. Fatigue mildly increased with decreased appetite and minimal dysphagia but does not need to take additional medicine other than Tylenol for this. Otherwise no cough, dyspnea, fever, chills and no significant peripheral neuropathy. He willfollow-up in 2 weeks for chemoradiation toxicity visit with our nurse practitioner. I will then see him in 4 weeks after completion of chemoradiationand will discuss whether he gets consolidation carboplatin paclitaxel after restaging scan or continue with maintenance immunotherapy alone . 08/12/2021: Started concurrent chemoradiation with weekly Carboplatin/Paclitaxelone week ago. Tolerating well without cough, dyspnea, chest pain, bowel or bladder symptoms, or neuropathy. Will continue to follow every 2 weeks while onchemoradiation--likely candidate for one year immunotherapy with Imfinzi if response. 07/17/2021: This is a now 73 yo male accompanied by his for new diagnosis of right upper lobe mass, wrapping around right mainstem bronchus, with associated mediastinal adenopathy. He apparently had right upper lobe pneumonia in 2019, no imaging since that time. He is a former smoker, prior 40 year history, quit about 18 years ago. About 1-2 months ago he had persistent nonproductive cough without hemoptysis. Increased dyspnea, but his notes he has had chronic dyspnea over the past 4 years. Slow nonquantified weight loss, decreased appetite, hoarseness, and mild right chest discomfort. CT [facility] showed a large lobulated mass of the superior segment of the right upper lobe extending to the hilum. There appears to be invasion of the mass into the rightmainstem bronchus. The mass measures approximately 5.5 x 7.6 x 6.0 cm. There is a low density lesion in the liver that appears to be a cyst. Bronchoscopy showed invasion of the right mainstem bronchus and confirms squamous cell carcinoma ofthe lung. He does not have other significant comorbidities, prior malignancy, or known family history. We discussed that involvement of the right mainstem bronchus and mediastinum is consistent with l ikely Stage III lung cancer, but he needs a PET/CT to exclude liver metastases. If no distant metastatic disease on PET/CT, we will coordinate chemoradiation with weekly carboplatin/paclitaxel. I ordered PET/CT, radiation oncology consultation and reviewed informed consent for Carboplatin/Paclitaxel. I will see him the same day as Radiation Oncology consult to review PET/CT. He did sign informed consent today to expedite concurrent chemoradiation if no distant metastatic disease. We will also contact pathology to add PDL1 status--if metastatic disease, he may be a candidate for immunotherapy +/- chemotherapy. Today we reviewed chemotherapy counseling for weekly Carboplatin and Paclitaxel. Goal of therapy iscurative if stage III. Common toxicities were reviewed to include infusion reactions/allergic reactions, myelosuppression, fatigue, nausea, vomiting, constipation, diarrhea, mouth sores, and alopecia. Other toxicities may include pneumonitis, neurologic, hepatic and renal toxicities. Risk of secondary malignancy due to effects of chemotherapy on bone marrow. Thepatient signed informed consent andwill follow-up as directed. Summary of Therapies Summary of Therapies: 08/06/2021: Commenced concurrent chemoradiation with Carboplatin AUC 2 IV Day 1 and Paclitaxel 45mg/m2 IV Day 1 weekly x 6 cycles. He was started on concurrent chemoradiotherapy treatment and received a dose of 6000 cGy to the right upper lobe mass and mediastinal nodes (bilateral) in 30 fractions from 08/06/2021 to 09/16/2021 over 41 elapsed days. Last cycle chemotherapy: 09/10/2021 - 09/30/2021: Cycle 1, Day 1 Durvalumab 10mg/kg IV every 2 weeks immunotherapy x 1 year. After 11/11/2021 2-week dose, changed to flat dose 1500 mg IV every 4- week dosing to complete 1 year of adjuvant immunotherapy. Last dose 09/01/2022. ~~~~~~~~~~~~~~~~~~~~~~~~~~~~~ 09/27/2024: Reviewed and signed informed consent for docetaxel and Cyramza at 100% dose. Cycle 1 day 1 10/09/24. Severe fatigue and nosebleeds with first cycle. Arthralgias secondary to growth factorsupport. Decreasing docetaxel to60 mg/m? IV with Ramucirumab 10 mg/kg IV 10/30/2024 for cycle 2-day1 without growth factor support. Ramucirumab + docetaxel Day 1: Ramucirumab 10mg/kg IV + docetaxel 75mg/m2 IV. Repeat cycle every 3 weeks for 4-6 cycles Intake Vitals/Pain Assessment 11/19/24 09:52 Weight 115.666 kg BP 119/76 Blood Pressure Location Lt brachial Position Sitting Temp 97.8 F Temp Source Temporal Pulse 86 Pulse Source NIBP Respiration 16 Pulse Oximetry (%) 98 Oxygen Delivery Method room air Are you having pain? No Intake Visit Reasons: Follow Up, follow up visit Accompanied by: Self Allergies No Known Drug Allergies Allergy (Unknown, Verified 11/19/24 09:53) none - Last Reconciled 11/19/24 by SUNNI Pfeiffer acetylcysteine (NAC) 1,200 mg PO DAILY aspirin 81 mg PO DAILY benzonatate 100 mg PO TID PRN berberine chloride 1,500 mg PO DAILY carvedilol 3.125 mg PO BID docusate sodium (Colace) 200 mg PO QHS famotidine 20 mg PO DAILY hydrochlorothiazide 25 mg PO DAILY 30 days losartan 25 mg PO DAILY omeprazole 40 mg PO DAILY ondansetron HCl 8 mg PO Q8HR PRN simvastatin (Zocor) 80 mg PO QHS Gastrointestinal Is the patient taking opioids for pain control?: No Bowel Pattern: Irregular and Diarrhea Falls Fall Precaution Measures Taken: Patient in chair Nurse's Note: Patient is here today for a follow up visit and go over [facility] Medical History Medical History Asbestos exposure Traction bronchiectasis History of tobacco abuse quit in 2001 Pulmonary fibrosis Non-small cell cancer of right lung Staghorn renal calculus Drug-induced pneumonitis Hyperlipidemia Hypertensive heart disease Lung mass Surgical History Surgical History History of appendectomy History of carpal tunnel release History of neck surgery Family History Family History Father Heart disease Mother Diabetes Hypertension Sister Cancer Father No problems noted. Mother No problems noted. Sister Cancer Brother Cancer Brother Cancer Brother Cancer Social History Social History Smoking status: Former smoker What tobacco products do you use: cigarettes Smoking quit date/years:>15 years ago Within the past year, how often did you have a drink containing alcohol: never AUDIT-C Alcohol total score: 0 AUDIT-C Alcohol score interpretation: A score less than 4 is consistent with normal alcohol consumption. 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 Still independent for ADLs and not requiring home oxygen. HEAD AND NECK: Negative for changes in hearing and vision. Negative for mouth ulcers, nasal congestion and nasal drainage. Positive for epistaxis--no visiblelesion on ENT evaluation. Treating with humidifying air and nasal Vaseline. Persistent hoarseness--1 week course of Diflucan prescribed 024. Hoarseness improved since cycle #2, can communicate much easier. PULMONARY: October 2023 ER visit for dyspnea, noted early pneumonia but did notrequire admission. Intermittent right chest wall pain--unchanged. Recurrent dyspnea/cough intermittent, improved since cycle #2 of chemotherapy. Prior hoarseness seems to be improving a little with stable dyspnea on exertion. CARDIOVASCULAR: Negative for claudication and irregular heartbeat/palpitations. No edema. GASTROINTESTINAL: Negative for abdominal pain. Initially reports constipation after cycle #2 then has had diarrhea for 4-5 days, improving, will utilize Imodium more frequently, no nausea or vomiting. Improved appetite and improvingdysphagia/resolved odynophagia as per HPI. GENITOURINARY: Negative for dysuria and hematuria. + h/o nephrolithiasis--left kidney shows staghorn calculus on imaging but patient does not have any symptoms, primary care elected continued observation only. ENDOCRINE: Negative for cold intolerance and heat intolerance. CENTRAL NERVOUS SYSTEM: Negative for gait disturbance and headache. No history of stroke. PSYCHIATRIC: Negative for anxiety or depression. DERMATOLOGICAL: Negative for pruritus and rash. Negative for suspicious skin lesions. MUSCULOSKELETAL: Negative for back pain and bone/joint symptoms. HEMATOLOGICAL: Negative for bleeding and easy bruising. Negative for history of transfusion or thromboembolic disease ALLERGY: Negative for environmental allergies and food allergies. Physical Exam EXAM ECOG PS 2 due to fatigue, Pain 0/10 CONSTITUTIONAL: The patient appears less fatigued, in no acute distress. HEAD / FACE: Normocephalic; atraumatic, no scleral icterus. EYES: Pupils are equal and reactive to light. Conjunctivae and lids are benign in appearance. Ocular movement intact. EARS: Hearing grossly intact. NOSE / MOUTH / THROAT: Nasal exam was deferred due to recent ENT eval. Oral cavity and oropharynx white plaque lesions improved after Diflucan without aphthous ulcers or thrush. No pharyngeal inflammation. NECK / THYROID: Neck is supple. Thyroid is symmetrical, without thyromegaly, masses or palpable nodules. LYMPHATIC: No palpable cervical, supraclavicular, axillary, or inguinal adenopathy. RESPIRATORY: Normal to inspection. Lungs clear to auscultation bilaterally--prolonged expiratory phase similar to prior exams; no significant rhonchi, wheezes or rales. Nonlabored respirations CARDIOVASCULAR: Regular rate and rhythm. No murmurs, gallops, or rubs. VASCULAR: Carotid, radial, femoral and pedal pulses present bilaterally. No bruits. ABDOMEN: Bowel sounds normoactive. Soft, nontender and non-distended. No hepatosplenomegaly. No masses. INTEGUMENTARY: The skin is unremarkable. No rashes. No suspicious lesions MUSCULOSKELETAL: Normal musculature, no joint deformities or abnormalities, normal range of motion for all four extremities. EXTREMITIES: No edema, cyanosis or clubbing. NEUROLOGICAL: Alert and oriented. Cranial nerves intact. No gross motor or sensory deficits. Ambulates independently. PSYCHIATRIC: No anxiety or evidence of depression. Results - [facility] LAB RESULTS Corrected WBC 3.5 X10E3/uL (4.1-10.5) L 11/06/24 10:06 11/06 Hgb 12.0 g/dL (13.0-17.0) L 11/06/24 10: 4 Hct 36.3 % (38.8-50.0) L 11/06/24 10:11/06/24 MCV 85.6 fl (83.5-101) 11/06/24 10:11/06/24 RDW 16.2 % (12.0-14.8) H 11/06/24 10:06 11/06/24 Plt Count 344 x10E3/uL (150-450) 11/06/24 10:06 11/06/24 Sodium 141 mmol/L (136-145) 11/19/24 09:11/19/24 Potassium 3.7 mmol/L (3.5-5.1) 11/19/24 09:11/19/24 BUN 12 mg/dL (7-25) 11/19/24 09:11/19/24 Creatinine 1.12 mg/dL (0.70-1.30) 11/19/24 09:11/19/24 Glucose 127 mg/dL (70-100) H 11/19/24 09:25 11/19/24 Est GFR (CKD-EPI) > 60.0 mL/Min 11/19/24 09:25 11/19/24 Calcium 9.4 mg/dL (8.6-10.3) 11/19/24 09:11/19/24 Total Bilirubin 0.5 mg/dl (0.3-1.0) 11/19/24 09:25 11/19/24 AST 15 U/L (13-39) 11/19/24 09:25 11/19/24 ALT 16 U/L (7-52) 11/19/24 09:25 11/19/24 Alkaline Phosphatase 53 U/L (34-104) 11/19/24 09:25 11/19/24 Total Protein 7.3 gm/dL (6.4-8.9) 11/19/24 09:11/19/24 Albumin 3.8 gm/dL (3.5-5.7) 11/19/24 09:25 11/19/24 Dictated By: Mari Diaz APRN DD/ [id number] Signed By: 11/19/24 1056 [facility]12-26-2024 Evaluation note* Diagnosis Onset Date Resolution Status Admit Date Candidiasis of mouth and esophagus acute November 08 2:57pm Drug-induced pneumonitis chronic November 08, 2024 2:57pm Encounter for chemotherapy management chronic November 08 2:57pm Epistaxis chronic November 08, 2024 2:57pm Malignant neoplasm of overlapping sites of right bronchus and lung November 08, 2024 2:57pm Staghorn renal calculus chronic D ecember 2023 2:57pm Candidiasis of mouth and esophagus acute November 19 9:29am Diarrhea acute November 19 9:29am Drug-induced pneumonitis chronic November 19, 2024 9:29am Encounter for chemotherapy management November 19 9:29am Epistaxis chronic November 19 9:29am Malignant neoplasm of overlapping sites of right bronchus and lung November 19 9:29am Staghorn renal calculus chronic J anuary 2024 9:29am Candidiasis of mouth and esophagus acute December 12 10:15am Diarrhea acute December 12, 2024 10:15am Drug-induced pneumonitis chronic December 12, 2024 10:15am Encounter for chemotherapy management chronic December 12 10:15am Malignant neoplasm of overlapping sites of right bronchus and lung chronic December 12, 2024 10:15am Staghorn renal calculus chronic J anuary 2024 10:15am Candidiasis of mouth and esophagus acute January 23, 2025 10:15am Diarrhea acute January 23 10:15am Drug-induced pneumonitis chronic January 23, 2025 10:15am Encounter for chemotherapy management chronic January 23, 2025 10:15am Malignant neoplasm of overlapping sites of right bronchus and lung chronic January 23 10:15am Staghorn renal calculus chronic M arch 2024 10:15am Drug-induced pneumonitis chronic January 23, 2025 10:38am Encounter for antineoplastic immunotherapy chronic January 23, 2025 10:38am Encounter for chemotherapy management chronic January 23, 2025 10:38am Encounter for coordination o f complex care chronic January 23, 2025 10:38am Epistaxis chronic January 23 10:38am Malignant neoplasm of overlapping sites of right bronchus and lung chronic January 23 10:38am Malignant neoplasm of upper lobe, right bronchus or lung chronic Mar ch 2024 10:38am Staghorn renal calculus chronic M arch 2024 10:38am Hypokalemia resolved January 23 10:38am Radiation-induced esophagitis resolv ed January 23, 2025 10:38am Chest pain inactive January 23 10:38am Right-sided chest wall pain inactive January 23, 2025 10:38am [facility] Work Phone: 1(969) 296-910612-26-2024 Evaluation note* Diagnosis Onset Date Resolution Status Admit Date Candidiasis of mouth and esophagus acute November 08 2:57pm Drug-induced pneumonitis chronic November 08, 2024 2:57pm Malignant neoplasm of overlapping sites of right bronchus and lung chronic November 08, 2024 2:57pm Staghorn renal calculus chronic D ecember 2023 2:57pm Encounter for chemotherapy management deleted November 08 2:57pm Epistaxis deleted November 08, 2024 2:57pm Candidiasis of mouth and esophagus acute November 19 9:29am Drug-induced pneumonitis chronic November 19, 2024 9:29am Malignant neoplasm of overlapping sites of right bronchus and lung chronic November 19 9:29am Staghorn renal calculus chronic J anuary 2024 9:29am Diarrhea deleted November 19 9:29am Encounter for chemotherapy management deleted November 19 9:29am Epistaxis deleted November 19 9:29am Candidiasis of mouth and esophagus acute December 12 10:15am Drug-induced pneumonitis chronic December 12, 2024 10:15am Malignant neoplasm of overlapping sites of right bronchus and lung chronic December 12, 2024 10:15am Staghorn renal calculus chronic J anuary 2024 10:15am Diarrhea deleted December 12, 2024 10:15am Encounter for chemotherapy management deleted December 12 10:15am Candidiasis of mouth and esophagus acute January 23, 2025 10:15am Drug-induced pneumonitis chronic January 23, 2025 10:15am Malignant neoplasm of overlapping sites of right bronchus and lung chronic January 23 10:15am Staghorn renal calculus chronic M arch 2024 10:15am Diarrhea deleted January 23 10:15am Encounter for chemotherapy management deleted January 23, 2025 10:15am Drug-induced pneumonitis chronic January 23, 2025 10:38am Malignant neoplasm of overlapping sites of right bronchus and lung chronic January 23 10:38am Staghorn renal calculus chronic M arch 2024 10:38am Hypokalemia resolved January 23, 025 10:38am Radiation-induced esophagitis resolv ed January 23, 2025 10:38am Chest pain inactive January 23 10:38am Right-sided chest wall pain inactive January 23, 2025 10:38am Encounter for antineoplastic immunotherapy deleted January 23, 2025 10:38am Encounter for chemotherapy management deleted January 23, 2025 10:38am Encounter for coordination o f complex care deleted January 23, 2025 10:38am Epistaxis deleted January 23 10:38am Malignant neoplasm of upper lobe, right bronchus or lung deleted [facility] 2024 10:38am [facility] Work Phone: 1(194) 184-396012-23-2024 History of Present illness Narrative* Froylan Scott MD - 11/05/2024 10:50 AM EST Subjective Patient ID: Bert Yeung is a 73 y.o. male who presents for Epistaxis (Nose Bleed) Pt reports a one month H/O recurrent epistaxis. Onset occurred with start of chemo for lung CA. Stopped after 2 1/2 weeks. Now has some bloody crusting when blows his nose. Has also become hoarse andhad throat pain for a month. Treated by decreasing intensity of chemo. Review of Systems HENT: Positive for sore throat and trouble swallowing. Respiratory: Positive for cough. Gastrointestinal: Negative for abdominal pain. All other systems reviewed and are negative. No family history on file. Active Ambulatory Problems Diagnosis Date Noted Venous insufficiency 10/17/2024 Poor venous access 10/17/2024 Malignant neoplasm of overlapping sites of right lung (CMS/HCC) 10/17/2024 Myelopathy, spondylogenic, cervical 08/28/2013 Resolved Ambulatory Problems Diagnosis Date Noted No Resolved Ambulatory Problems Past Medical History: Diagnosis Date Appendicitis Hyperlipidemia (CMS/HCC) Hypertension (CMS/HCC) Lung cancer (CMS/HCC) Pneumonia Tonsillitis Past Surgical History: Procedure Laterality Date APPENDECTOMY CARPAL TUNNEL RELEASE COLONOSCOPY PORTACATH PLACEMENT 10/25/2024 WRIST SURGERY Right No Known Allergies Current Outpatient Medications on File Prior to Visit Medication Sig Dispense Refill Berberine Chloride 500 MG capsule Take by mouth carvedilol (Coreg) 3.125 MG tablet Take 3.125 mg by mouth in the morning and 3.125 mg before bedtime. cholecalciferol (Vitamin D-3) 50 MCG (1999 UT) capsule Take 2,000 Units by mouth Daily hydroCHLOROthiazide (HYDRODiuril) 25 MG tablet Take 25 mg by mouth Daily HYDROcodone-acetaminophen (Hopewell) 5-325 MG tablet 1 tablet losartan (Cozaar) 25 MG tablet Take 25 mg by mouth Daily omega-3 (FISH OIL) 300 MG capsule Take by mouth Daily ondansetron (Zofran) 8 MG tablet TAKE 1 TABLET EVERY 8 HOURS NEEDED FOR NAUSEA AND VOMITING ramucirumab (Cyramza) 100 MG/10ML solution Infuse into a venous catheter simvastatin (Zocor) 80 MG tablet Take 80 mg by mouth at bedtime [DISCONTINUED] Acetylcysteine 600 MG capsule Daily [DISCONTINUED] benzonatate (Tessalon) 100 MG capsule TAKE 1 CAPSULE BY MOUTH 3 TIMES A DAY NEEDED FOR COUGH No current facility-administered medications on file prior to visit. Objective Last Recorded Vitals Vitals: 11/05/24 1053 BP: 117/87 ENT Physical Exam Constitutional Appearance: patient appears well-developed and well-nourished, Head and Face Appearance: head appears normal and face appears atraumatic; Ear Ear comments: Pierre ears normal Nose External Nose: nares patent bilaterally; external nose normal; Internal Nose: nasal mucosa normal; Oral Cavity/Oropharynx Lips: normal; Teeth: normal; Gums: gingiva normal; Tongue: normal; Oral mucosa: normal; Hard palate: normal; Neck Neck: neck normal; neck palpation normal; Thyroid: thyroid normal; Respiratory Inspection: breathing unlabored; normal breathing rate; Auscultation: breath sounds are clear; Cardiovascular Inspection: extremities are warm and well perfused; no peripheral edema present; Auscultation: regular rate and rhythm; A diagnostic flexible fiberoptic laryngoscopy was performed. The flexible fiberoptic laryngoscope was placed into the nose and advanced to the level of the tip of the epiglottis. Examination of the larynx including both surfaces of the epiglottis false and true vocal folds, arytenoids and surrounding mucosal surfaces shows RT erythroplakia and left leukoplakia. Normal bilateral true vocal fold motion is present. Bilateral piriform sinuses and base of tongue appear without lesion Assessment/Plan Diagnoses and all orders for this visit: Throat pain LPRD (laryngopharyngeal reflux disease) Recurrent epistaxis Hoarse Pt's epistaxis is largely resolved and no lesion evident on endoscopy to cauterize. I doubt the TVClesions are neoplastic and likely due to his coughing, but I will follow them. Will start an LPRD regimen to help ease sx. Answers submitted by the patient for this visit: Sore Throat Questionnaire (Submitted on 11/02/2024) Chief Complaint: Sore throat Chronicity: new Onset: 1 to 4 weeks ago Progression since onset: unchanged Pain worse on: neither Fever: no fever Fever duration: less than 1 day pain severity now: mild Pain - numeric: 5/10 hoarse voice: Yes [facility] History of Present illness Narrative* Wilmer Rodrigues MD - 11/02/2024 10:30 AM EST Images from the original note were not included. The patient is status post port placement. Port has been used. Patient is without complaints. On examination, he is awake alert and in no acute distress. Left chest port site is clean and dry without evidence of infection or hematoma / seroma. 1. Poor venous access 2. Malignant neoplasm of overlapping sites of right lung (CMS/HCC) Patient will be discharged from the office and continue to follow with his other physicians. [facility] History of Present illness Narrative* Wilmer Rodrigues MD - 10/17/2024 9:30 AM EST Images from the original note were not included. Bert Yeung 1950 Bert Yeung is a 73 y.o. male presents with chief complaint of Consult (Port Placement- Ref Natacha Deshawn/Lung cancer, venous insufficiency) HPI: The patient is a 73-year-old who presents to discuss port placement. He has a recurrent right lung cancer. He initially was diagnosed with the cancer about 2 years ago. He underwent chemotherapy . Hedid not have a port at that time. With this recurrence, patient requires further chemotherapy. He did complete 1 session already. He is starting to have problems with venous access. He is on aspirin.No other blood thinners. SUBJECTIVE: MEDICATIONS: ALLERGIES Current Outpatient Medications Medication Instructions Acetylcysteine 600 MG capsule Daily carvedilol (COREG) 3.125 mg, 2 times daily hydroCHLOROthiazide (HYDRODIURIL) 25 mg, Daily HYDROcodone-acetaminophen (Hopewell) 5-325 MG tablet 1 tablet losartan (COZAAR) 25 mg, Daily ondansetron (Zofran) 8 MG tablet TAKE 1 TABLET EVERY 8 HOURS NEEDED FOR NAUSEA AND VOMITING simvastatin (ZOCOR) 80 mg, Nightly No Known Allergies PAST MEDICAL HISTORY: SOCIAL HISTORY SURGICAL HISTORY: Past Medical History: Diagnosis Date Appendicitis Hyperlipidemia (CMS/HCC) Hypertension (CMS/HCC) Lung cancer (CMS/HCC) Pneumonia Tonsillitis Social History Tobacco Use Smoking status: Former Types: Cigarettes Substance Use Topics Alcohol use: Not Currently Drug use: Never Past Surgical History: Procedure Laterality Date CARPAL TUNNEL RELEASE COLONOSCOPY WRIST SURGERY Right REVIEW OF SYMPTOMS: Review of Systems Constitutional: Positive for fever. Respiratory: Positive for cough. Negative for shortness of breath. Cardiovascular: Negative for chest pain. Gastrointestinal: Negative for abdominal pain. Neurological: Negative for syncope. OBJECTIVE: Visit Vitals BP 132/68 Ht 5' 10 Wt 255 lb BMI 36.59 kg/m Smoking Status Former BSA 2.39 m Physical Exam Constitutional: General: He is not in acute distress. Cardiovascular: Rate and Rhythm: Normal rate and regular rhythm. Pulmonary: Breath sounds: Normal breath sounds. Abdominal: Palpations: Abdomen is soft. Skin: General: Skin is warm and dry. Neurological: Mental Status: He is alert. ASSESSMENT AND PLAN: Assessment/Plan Diagnoses and all orders for this visit: Poor venous access Venous insufficiency Malignant neoplasm of overlapping sites of right lung (CMS/HCC) Plan will be to place a port. The procedure,benefits, risks of port placement including risks of bleeding, infection, pneumothorax, port malfunction were discussed with the patient. [id number] Chief complaint+Reason for visit Narrative* Chief Complaint Admit Date Follow Up after PET September 27, 2024 1:01pm Referral Order October 09, 2024 3:25pm 1 wk f/u October 17, 2024 8 :14am Referral Order October 22, 2024 1 0:31am Lung Cancer, Venous Insufficiency Decemb er 2023 10:48am 3 wk follow up November 08, 2024 2:57pm Follow Up November 19, 2024 9: 29am Follow Up after CT December 12, 2024 1 0:15am Lung Mass December 12, 2024 1 0:44am Reason for Visit Admit Date Drug-induced pneumonitis September 27, 2024 1:01pm Encounter for chemotherapy management No vember 2023 1:01pm Encounter for coordination of complex ca re September 27, 2024 1:01pm Malignant neoplasm of overla pping sites of right bronchus and lung September 27, 2024 1:01pm Staghorn renal calculus September 27, 2 024 1:01pm Drug-induced pneumonitis October 17 024 8:14am Encounter for chemotherapy management De 2023 8:14am Epistaxis October 17, 2024 8 :14am Malignant neoplasm of overla pping sites of right bronchus and lung October 17, 2024 8:14am Staghorn renal calculus October 17 8:14am Candidiasis of mouth and esophagus Decem shawn 2023 2:57pm Drug-induced pneumonitis November 08, 2024 2:57pm Encounter for chemotherapy management De cember 2023 2:57pm Epistaxis November 08, 2024 2:57pm Malignant neoplasm of overla pping sites of right bronchus and lung November 08, 2024 2:57pm Staghorn renal calculus November 08, 2 024 2:57pm Candidiasis of mouth and esophagus Janua 2024 9:29am Diarrhea November 19, 2024 9: 29am Drug-induced pneumonitis Laure 6th, 20 25 9:29am Encounter for chemotherapy management Ja nuary 2024 9:29am Epistaxis November 19, 2024 9: 29am Malignant neoplasm of overla pping sites of right bronchus and lung November 19, 2024 9:29am Staghorn renal calculus November 19 9:29am Candidiasis of mouth and esophagus Gagan ry 2024 10:15am Diarrhea December 12, 2024 1 0:15am Drug-induced pneumonitis December 12 10:15am Encounter for chemotherapy management Ja [facility] 2024 10:15am Epistaxis December 12, 2024 1 0:15am Malignant neoplasm of overla pping sites of right bronchus and lung December 12, 2024 10:15am Staghorn renal calculus December 12 10:15am Drug-induced pneumonitis December 12 10:44am Encounter for antineoplastic immunothera py December 12, 2024 10:44am Encounter for chemotherapy management [facility] 2024 10:44am Encounter for coordination of complex ca re December 12, 2024 10:44am Epistaxis December 12, 2024 1 0:44am Malignant neoplasm of overla pping sites of right bronchus and lung December 12, 2024 10:44am Malignant neoplasm of upper lobe, right bronchus or lung December 12, 2024 10:44am Staghorn renal calculus December 12 10:44am Hypokalemia December 12, 2024 1 0:44am Radiation-induced esophagitis December 122024 10:44am Chest pain December 12, 2024 1 0:44am Right-sided chest wall pain November 10:44am [facility] Work Phone: 1(527) 969-308911-14-2024 Evaluation note* Diagnosis Onset Date Resolution Status Admit Date Drug-induced pneumonitis chronic September 27, 2024 1:01pm Encounter for chemotherapy management chronic September 27 1:01pm Encounter for coordination o f complex care chronic September 27 1:01pm Malignant neoplasm of overlapping sites of right bronchus and lung chronic September 27, 2024 1:01pm Staghorn renal calculus chronic N ovember 2023 1:01pm Drug-induced pneumonitis chronic October 17, 2024 8:14am Encounter for chemotherapy management chronic October 17 8:14am Epistaxis chronic October 17, 2024 8:14am Malignant neoplasm of overlapping sites of right bronchus and lung chronic October 17, 2024 8:14am Staghorn renal calculus chronic D ecember 2023 8:14am Candidiasis of mouth and esophagus acute November 08, 024 2:57pm Drug-induced pneumonitis chronic November 08, 2024 2:57pm Encounter for chemotherapy management chronic November 08 024 2:57pm Epistaxis chronic November 08, 2024 2:57pm Malignant neoplasm of overlapping sites of right bronchus and lung chronic November 08, 2024 2:57pm Staghorn renal calculus chronic D ecember 2023 2:57pm Candidiasis of mouth and esophagus acute November 19 9:29am Diarrhea acute November 19 9:29am Drug-induced pneumonitis chronic November 19, 2024 9:29am Encounter for chemotherapy management chronic November 19 9:29am Epistaxis chronic November 19 9:29am Malignant neoplasm of overlapping sites of right bronchus and lung chronic November 19 9:29am Staghorn renal calculus chronic J anuary 2024 9:29am Candidiasis of mouth and esophagus acute December 12 10:15am Diarrhea acute December 12, 2024 10:15am Drug-induced pneumonitis chronic December 12, 2024 10:15am Encounter for chemotherapy management chronic December 12 10:15am Epistaxis chronic December 12, 2024 10:15am Malignant neoplasm of overlapping sites of right bronchus and lung chronic December 12, 2024 10:15am Staghorn renal calculus chronic J anuary 2024 10:15am Drug-induced pneumonitis chronic December 12, 2024 10:44am Encounter for antineoplastic immunotherapy chronic December 12 10:44am Encounter for chemotherapy management chronic December 12 10:44am Encounter for coordination o f complex care chronic December 12 10:44am Epistaxis chronic December 12, 2024 10:44am Malignant neoplasm of overlapping sites of right bronchus and lung chronic Laure 29th, 2025 10:44am Malignant neoplasm of upper lobe, right bronchus or lung chronic Brian uary 2024 10:44am Staghorn renal calculus chronic J anuary 2024 10:44am Hypokalemia resolved December 12, 2024 10:44am Radiation-induced esophagitis resolv ed December 12, 2024 10:44am Chest pain inactive December 12, 2024 10:44am Right-sided chest wall pain inactive December 12, 2024 10:44am [facility] Work Phone: [phone]) 213-920611-14-[address] [facility] [place] [place] [address] Cancer Center Note Signed Patient: Bert Yeung MR#: [id number] : 1950 Acct:[id number] Age/Sex: 73 / M Type: DEP AMB Date of Service: 09/27/24 Copies to: Howie Smith DO~ Assessment & Plan A/P (1) Encounter for chemotherapy management: Plan: Initial diagnosis July 2021: No distant metastatic disease on PET/CT for staging (bilateral mediastinal and subcarinal adenopathy noted). Concurrent chemoradiation commenced 08/06/2021--Carboplatin AUC 2 IV and Paclitaxel 45mg/m2 IV weekly x 6-7 weeks. Tolerated well. He completed Cycle 6 weekly Carboplatin/Paclitaxel therapy 09/10/2021 and radiotherapy complete on 09/16/2021. Cycle 1 day 1 09/30/2021 durvalumab 10mg/kg IV every 2 weeks immunotherapy as noted above. Changed to flat dose durvalumab 1500 milligrams IV every 4 weeks with 11/23/2021 dose. 08/04/2022: Continue durvalumab 1500mg IV every 4 weeks in addition to Medrol Dosepak day after eachinfusion given improvement of pneumonitis symptoms. End of 1 year of therapy 09/01/202208/2024: Follow-up of 6-month restaging scans and review of symptoms. Review images and reports over total 45-minute visit. 09/27/2024: Progression of disease on PET/CT, reviewed and signed informed consent for docetaxel 75mg IV day 1 with ramucirumab 10 mg/kg IV day 1 every 3 weeks for total of 6 cycles followed by ramucirumab maintenance if response. Commence therapy within the next week. (2) Malignant neoplasm of overlapping sites of right bronchus and lung: Plan: Stage IIIB right upper lobe (overlapping sites involving right mainstem bronchus). No distant metastatic disease on initial PET/CT for staging. --09/08/2023: Now 2 years from diagnosis with no recurrence and stable right upper lobe bronchiectasis on restaging scans. We will extend surveillance follow-up to every 6 months. 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 No distant metastatic disease on PET/CT, therefore we coordinated chemoradiation with weekly carboplatin/paclitaxel. He commenced weekly Carboplatin/Paclitaxel with radiation on 08/06/2021 and today he will be receiving #6 Carboplatin/Paclitaxel and is scheduled to completed radiation therapy on 09/16/2021. 08/12/2021: No toxicities other than mild increase in creatinine. 08/27/2021: Grade 1 odynophagia with decreased appetite. Added sucralfate slurry 1 g every 6 hours as needed for remainder of chemoradiation. 09/10/2021: Grade 1 fatigue; otherwise no significant toxicities to chemotherapy; weight is stable;stable anemia. Normal electrolytes. Minimal nausea and no significant pain other than some acid reflux like symptoms; well controlled with Prilosec. --Patient completed Cycle 6 weekly Carboplatin/Paclitaxel therapy (09/10/2021) and radiotherapy to complete on 09/16/2021. 09/24/2021: Reviewed informed consent for Durvalumab maintenance therapy 10mg/kg IV every 2 weeks x1 year (ok to change to monthly therapy if well tolerated). 10/14/2021: Patient was sent to ER for right chest wall pain on 10/07 following first durvalumab dose 09/30/2021. Noted to have regression of prior right middle lobe lesion and adenopathy with small adjacent infiltrate (this may be postradiation change but patient was placed on antibiotics). His pain has now completely resolved with no significant cough. Otherwise tolerating immunotherapy well. Wewill continue him on every 2-week dosing until receivingwhether he has recurrent chest discomfort or symptoms on durvalumab. Next follow-up with me in 4 weeks for toxicity check on immunotherapy. We will not repeat his chest CT since this was just performed in emergency department. 01/22/2022: Patient is here for 3-month follow-up on durvalumab maintenance therapy. He has had recurrent episodes of chest wall pain and dyspnea, previouslytreated with antibiotics and subsequent steroids. He notes that his symptoms tend to worsen for about 1 to 2 weeks following his immunotherapy, usually beginning 2 to 3 days after therapy. I will give him a brief course of Medrol Dosepak with each cycle and he will have reassessment with nurse practitioner for toxicity visit next week to seeif this prevents his cough and dyspnea symptoms. We reviewed his restaging CT chest which shows reduction in size of his cavitary lesion in the right hilum from 6.5 to 5.2 cm in greatest diameter. There are evolving postradiation changes consistent with his pneumonitis and interval development of trace right-sided pleural effusion. Next follow-up withme will be in [address] chest at that time, although he may follow-up sooner after his [employer] visit if he is having persistent pneumonitis. 02/17/2022: He has done very well with the Medrol Dosepak after Durvalumab infusion, and denies chestpain, cough or dyspnea at rest- overall near resolution of symptoms. We will continue with this plan and he will follow-up with Dr. Hess in [address], labs. He has no questions today and isin agreement with this plan. 05/05/2022: No new symptoms--stable dyspnea/cough and improved right chest discomfort with Medrol dose pack after each cycle. Restaging CT with decreasingsoft tissue component within cavitary lesion. Some surrounding ground glass opacities consistent with known pneumonitis in prior radiation field. F ollowup [address] Chest. Continue Medrol dose pack after each cycle. 08/04/2022: Bert notes that since he saw Dr. Ann last month his breathing hasbeen relatively stable. He was placed on tapering doses of steroids which will be Repeated monthly until the end of immunotherapy. Yesterday he had a prolonged coughing episode that has resolved and he will continue on current dose of prednisone 30 mg daily until his next scheduled step down to [address] Corneliusid not note any benefit from inhaled bronchodilators or steroids but did recommend systemic steroids. The patient's most recent CT scanshowed resolution of his prior cavitary lesion and overall mildregression of consolidation in the right mid to lower lung joiner. Otherwise no new nodules. The patient will receive second to last dose of durvalumab today. Last dose 1 year of maintenance durvalumab will be 09/01/2022. I will schedule restaging CT chest and follow-up with me in 3 months for survivorship visit. Hemay return sooner if new symptoms arise. Mod complexity visit over 35 minutes to review restaging scans. 11/04/2022: Stable intermittent dyspnea and cough on low-dose prednisone 20 mg daily followed by Dr. Ann who sees him in mid November. No residual symptoms concerning for immunotherapy related toxicity other than pneumonitis noted below. CT scan shows stable postradiation changes of right upper lobe and bilateral perihilar areas. No areas concerning for metastatic disease. His lastdose of durvalumab was 09/01/2022. Next follow-up with restaging CT chest with contrast and labs including CBC, CMP, TSH, and free T4 in January 2023 but he may return sooner if new symptoms arise concerning for recurrence. Okay for him to see nurse practitioner and review survivorship plan at that time. Moderate c omplexity 35-minute follow-up. 02/03/2023: Cough and dyspnea are slowly improving since slow titration of prednisone, now 5 mg daily. Postradiation changes but no progression on chest CT. Continue every 3-month surveillance. Low complexity follow-up 25 minutes. 05/05/2023: Cough and dyspnea stable although now maintaining prednisone 10 mg daily, following withDr. Reid. Postradiation changes without progression on chest CT but persistent volume loss and small right pleural effusion. Incidental note of left kidney staghorn calculus which is asymptomatic. Defer evaluation of this and mild hypokalemia to primary care. Next follow-up with chest CT with contrast will be deferred to 4 months and I will review symptoms, exam, and results of chest CT at that time. Low complexity follow-up 25 minutes. 09/08/2023: Patient has stable intermittent cough and dyspnea but no recent infections. Has been titrated off maintenance prednisone and chest CT was reviewed showing postradiation changes without new nodules or progression of known infiltrates. He reviewed the staghorn calculus with primary care who is decided to continue surveillance only. Next follow-up with CT chest with contrast is deferred to 6 months but he may return sooner if new issues arise. Low complexity follow-up 25 minutes. 03/08/2024: He still has intermittent right-sided chest pain but cough and dyspnea have improved. Mainly exacerbated by windy conditions but no limitations of activities. Chest CT was reviewed and is stable and we will continue monitoring every 6 months. No nodules suggestive of recurrence. He may return sooner if new issues arise. Moderate complexity 30-minute follow-up. 09/12/2024: No progression of pulmonary symptoms but most recent CT scan shows some mild increase of residual mass concerning for possible progression. He will be sent for PET/CT for further evaluation and if FDG avidity noted we will set up diagnostic bronchoscopy. Patient is in agreement with this plan over this high complexity 45-minute follow-up for review of images and reports in thecoordinate PET/CT. 09/27/2024: No progression of pulmonary symptoms but PET/CT confirms peripheral FDG enhancement with max SUV 9.5 with right supraclavicular adenopathy, hilar and mediastinal adenopathy. This appears most consistent with recurrence of lung carcinoma and due to the location of the necrotic mass and adenopathy this would be challenging for rebiopsy. Since he had poor tolerance of prior durvalumab with immunotherapy related pneumonitis, we decided to proceed with second line therapy with docetaxel 75 mg/m? IV day 1 with ramucirumab 10 mg/kg day 1 for 6 cycles, then ramucirumab maintenance of response. We reviewed images and reports of his PET/CT and discussed informed consent. Next follow-upwith CBC and CMP for toxicity visit 1 week after starting docetaxel with Cyramzatherapy. High complexity visit over 45 minutes with additional G2212 complexityof care for preparation of new chemotherapy orders and to review consent. He (3) Drug-induced pneumonitis: Plan: Recurrent pneumonitis as addressed above. Medrol Dosepak for 1 week following next durvalumab and reassessment with next practitioner to see if this alleviates his symptoms. 02/17/2022: see above. Near resolution of symptoms with addition of Medrol Dosepak. He is back to hisbaseline dyspnea on exertion only with increased activity 05/05/2022: Intermittent worsening of cough and dyspnea between cycles but much improved with medroldose pack each cycle. 08/04/2022: I reviewed progress note from consultation with pulmonary medicine Dr. Ann who recommends recurrent courses of prednisone 40 mg daily for 7 days, 30 mg daily for 7 days, 20 mg daily for7 days, then 10 mg daily for 7 days. This will be repeated once monthly until pneumonitis improved off immunotherapy within the next 2 months. He will have follow-up appointment withDr. Ann next month. 11/04/2022: Patient does not feel that his cough and dyspnea is improved since end of durvalumab with last dose 09/01/2022, however he appears to be less symptomatic on exam today. He has maintained on prednisone 10 mg daily until follow-up with Dr. Ann next month. Imaging shows stable postradiation changes, likely exacerbated by prior immunotherapy. We will continue to follow with every 3-month scans. 02/03/2023: Cough and dyspnea are slowly improving since slow titration of prednisone, now 5 mg daily. Postradiation changes but no progression on chest CT. Continue follow-up with Dr. Ann as directed. 05/05/2023: Patient notes most recent follow-up with with Dr. Mathews and his current prednisone dose is 10 mg daily. Still no progression on chest CT but persistent postradiation changes and right lung volume loss. Continue follow- upwith pulmonary medicine as scheduled. 09/08/2023, 03/08/2024, 09/12/2024: No new symptoms. Titrated off prednisone fornow and will continue follow-up with Dr. Mathews as needed. 09/27/2024: Progression of disease on PET/CT with no new symptoms. Will utilizea noncheckpoint inhibitor regimen for recurrence of disease due to poor tolerance of durvalumab. Will continue to followpulmonary status closely. (4) Staghorn renal calculus: Plan: Left kidney staghorn calculus noted on April 2023 imaging--partial imaging on current CT but no indication for intervention at this time. Patient does not have any symptoms but has had a history of nephrolithiasis. Continue surveillance with primary care Dr. Smith. (5) Encounter for coordination of complex care: Plan: Review of PET/CT and preparation of chemotherapy orders G2212. Medications: New ondansetron HCl 8 mg PO Q8HR PRN 30 tabs 3RF nausea and vomiting Patient Instructions: Previous treatment patient (no chemo class) Follow up with Dr Hess one week after starting tx with CBC CMP CHEMO PLAN Treatment Plan Durvalumab 1500mg Q28D [Stopped Nov 04, 2022] No Active Chemotherapy History of Present Illness HPI 09/27/2024: Néstor is here for 2-week follow-up to go over PET/CT and discuss further therapy due to results showing progression of disease. He has no interval change of his COPD with intermittent cough. PET/CT images and reports were reviewed with the patient and showing peripheral FDG avid mass in the right upper lobe with hilar, mediastinal, and right supraclavicular adenopathy consistentwith progression of disease. No distant metastases noted and there is nonspecific focus of uptake in the left gluteal muscle SUV 5.2 that is indeterminate. The location of the mass would be challenging to biopsy and increased SUV levels within the right upper lobe are most consistent with recurrence of disease. 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 Goal of therapy is palliation of symptoms and prolongation of life but not curative. Concepcion follow- up with pr cycle 1 week 2 for toxicity visit. High complexity 45-minute visit to review images and reports of PET/CT and counseling for docetaxeland Cyramza therapy. G2212 increased care complexity for preparation of orders. Today we reviewed chemotherapy counseling for docetaxel and Cyramza. Common toxicities were reviewed to include allergic reaction/infusion reactions, rashes, myelosuppression, fatigue, nausea, vomiting, constipation, diarrhea, mouth sores, and alopecia. Other toxicities may include hypertension, impaired wound healing, pneumonitis, neurologic, hepatic and renal toxicities. The patient signed informed consent and will follow-up as directed. 09/12/2024: Bert presents for 6-month followup for prior stage III lung cancerdiagnosed 3 years ago. He has unchanged right sided upper chest pain that resolves with deep breaths and he has been followed by Dr. Valencia of pulmonary medicine. No change in his current management of COPD and pneumonitis. No recent infections or hospital admissions. No urinary issues with asymptomatic left kidney staghorn calculus. Laboratories show normal CBC, normal renal and hepatic function. I reviewed Chest CT from 09/10/2024 imaging and report showing right upper lobe residual mass measuring 4.1 x 4.8 x 3.9 cm once measuring 3.1 x 3.6 x 3.0 cm in area of prior radiation with associated bronchiectasis. Indeterminate for progression of disease. I recommended PET/CTfor further evaluation and if there is anyFDG avidity we will coordinate repeatbronchoscopy to determine if recurrence. He will follow-up with me after PET/CTin the next 1 to 2 weeks to review results and further plan. High complexity 45minute follow-up for review of images and reports and to set up PET/CT for further evaluation. 03/08/2024: Bert is here for now 6-month follow-up of his stage III lung cancer status post chemoradiation and adjuvant durvalumab. He has occasional right- sided sharp pains that resolved with deep breaths, likely related to his immunotherapy related pneumonitis. He was seen in the ER in October for respiratory infection but did not have admission and otherwise has not had any change of his chronic pulmonary management. We reviewed his chest CT that continues to show posttreatment changes of the lower right upper lobe with bronchiectasis and stable slight pleural effusion. No suspicious pulmonary nodules for recurrence. In the absence of new symptoms he may continue follow-up visits and restaging chest CT every 6 months. He will return sooner if new issues arise. Moderate complexity 30-minute follow-up for review of images and reports restaging CT and history/exam 09/08/2023: Bert is here for 4-month follow-up with CT. On last imaging, he had an asymptomatic left kidney staghorn calculus and the decision was to continue observation only. 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 Stable dyspnea from prior visits. No recent admissions or antibiotics for worsening cough or dyspnea. CBC now with normal white blood cell count, unremarkable chemistry profile. Restaging CT chest from 08/17/2023 images and reports reviewed showing posttreatment changes of both lungs mostprominently in the right upper lobe grossly similar to prior treatment associated bronchiectasis with associated small right-sided loculated pleural effusion. No new areas of consolidation or suspicious pulmonary nodules. Sincethe patient is regularly followed by pulmonary medicine and has remainedclinically stable, we will extend his restaging CTs and exams to 6 months. He will return sooner ifnew issues arise. Low complexity 25-minute follow-up for surveillance of lung cancer symptoms and imaging. 05/05/2023: 3-month follow-up with review of CT of chest. Now nearly 9 months from completion of adjuvant durvalumab with prednisone now at 10 mg daily, followed by Dr. Mathews. Dyspnea is stable from prior visits but no further ERvisits or admissions. No recent infections or antibiotics. Laboratories unremarkable with normal hemoglobin, mild hypokalemia that he will follow-up with his primary care physician. Imaging is remarkable for stable posttreatmentchanges of the right upper lobe with volume loss and a small loculated right pleural effusion but no new consolidations suggestive of recurre nce. There weresubcentimeter low-attenuation lesions near the gallbladder fossa which are unchangedfrom prior study and he is noted to have a staghorn type calculus in the left kidney without obstruction. I will have him discuss with primary care whether he should see urology for further evaluation. The patient denies any flank pain, urinary infections, or change in frequency. -- Since symptoms are stable and imaging has not shown any recurrence, I recommend extending his CTand follow-up visits to every 4 months. At his next follow-up in August he will be 1 year from endof adjuvant durvalumab. Patientis in agreement with this plan over this low complexity 25-minute follow-up for surveillance of lung cancer symptoms and imaging. 02/03/2023: 3-month follow-up and review of CT of chest. He is now nearly 6 months from completion of adjuvant durvalumab. His prednisone is titrated down to 5 mg daily and cough is intermittent. Still has dyspnea with moderate activity. No further ER visits or admissions. No infections, nausea, vomi ting,diarrhea, and no abnormalities on immunotherapy labs. CT of chest shows no new infiltrate. Stable 13 mm focus in the right hepatic lobe which is unchanged from original CTs prior to starting therapy in 2020. We will continue to followevery [address], but should not require immunotherapy labs except annual TSH/free T4. He may return sooner if signs or symptoms of recurrence. Low complexity 25-minute follow-up for surveillance lung cancer. 11/04/2022: Fer is here for 3-month follow-up and review of CT chest after completing last dose 09/01/2022 of 1 year adjuvant durvalumab after concurrent chemoradiation. His dyspnea and cough recurintermittently and he remains on low- dose prednisone 10 mg daily with follow-up planned with Dr. Ann in mid November. He has not had any further ER visits or evidence of infection. No nausea/vomiting, diarrhea, bone pain, and immunotherapy labs normal. We will recheck his thyroid function tests with CBC and CMP at his 3-month follow-up. We reviewed images and reports of CT scans of chest from April, July, and most recent 11/01/2022 restaging scans. He has stable soft tissue prominence inthe right hilum and to a lesser extent the left hilum. Airspace opacities in the right perihilar distribution of the right upper lobe with a lesser extent inthe left perihilar region is unchanged compared to prior exam. Stable 13 mm focus of hypoattenuation in right hepatic lobe favoring cyst. 1.6 cmstone in theleft renal pelvis. No obvious bony metastatic lesions. The patient denies any back painor dysuria/hematuria. We will plan to follow-up exam, labs, and imaging in 3 months. He may return sooner if signs or symptoms of recurrence. Moderate complexity 35-minute follow-up visit for review of symptoms, labs, and images after completing 1 year of durvalumab maintenance therapy. 08/04/2022: Bert is here for follow-up on durvalumab maintenance therapy. He has 2 more doses 1 today and 1 in 4 weeks then will complete his 1 year maintenance therapy. He was seen by Dr. Ann of pulmonary medicine who has prescribed serial prednisone tapers for pneumonitis (40 mg x 1 week, 30 mg x 1 week, 20 mg x 1 week, 10 mg x 1 week and repeat each month). His dyspnea and cough has somewhat stabilized since the steroid courses, although he had a coughing fit yesterday that lasted about3 hours. He did not seek any furtherevaluation in the emergency room and this has now resolved. He is currently on 30 mg daily of his prednisone without any significant cough or dyspnea greater than baseline. Otherwise no immunotherapy related toxicities such as rash or diarrhea. We reviewed his restaging CT chest from 08/02/2022 that shows persistent consolidative changes in the right upper lobe with loculated pleural effusion that is unchanged. Prior cavitary component has essentially resolvedsince prior study with stable scarring in the left hilar region. No new pulmonary nodules are noted. Labs show mild leukocytosis related to his steroids but otherwise stable hemoglobin and normal platelet count. Renal and hepatic function normal and no abnormalities of thyroid or adrenal function. Concepcion continue 2 further cycles of therapy with durvalumab then stop. Follow-up in 3 months with contrast chest CT. He may return sooner as needed. Moderate complexity 35-minute follow- up visit for review of images and reports of CT and discussion of further therapy. 05/05/2022: Improvement of prior right chest wall pain with use of Medrol Dosepaks after each cycle of durvalumab. Stable dyspnea and cough. No other immunotherapy related toxicities other than pneumonitis. Restaging CT Chest reviewed--primary lesion similar size but more cavitary with surrounding ground glass opacities in prior radiation field. Will continue current durvalumab maintenance. Next f/u 3 months with contrast chest CT. End of therapy will be 08/2022 (sooner if unable to tolerate dueto pneumonitis--tolerable with brief steroid course each cycle. 02/17/2022: Bert presents today to evaluate symptoms. He previously noted significant dyspnea and cough with his durvalumab, so he was given a Medrol Dosepak to start 1 day after durvalumab treatment.He states after this cycle, he noticed a significant improvement in his symptoms with initiation ofthe dosepak and denies any dyspnea at rest or around the house after treatment. He still has dyspnea on exertion when he's more active, but this is mild now and more his baseline. He continues to deny other symptoms such as rash, abdominal pain or diarrhea. Labs are reviewed and remain stable. We will continue with durvalumab + medrol dosepak every 4 weeks, and will plan for follow-up in [address] Hess. He will call sooner if his symptoms worsen or new symptoms develop. 01/21/2022: Bert presents for durvalumab immunotherapy today. He notes that with prior cycles he has had recurrent dyspnea and cough that is treated with steroids with some improvement about 1 week prior to his next cycle. He now notes that his shortness of breath is at baseline. He has otherwise not had anyother symptoms such as diarrhea, skin rash, or abdominal pain and his labs remained stable. 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 We discussed 1 more cycle durvalumab and I will give him a Medrol Dosepak to start 1 day after his durvalumab dose to see if we can preempt his inflammatory reaction. If he does not tolerate his durvalumab well we may considerstopping maintenance immunotherapy early. He is in agreement with thisplan. Next toxicity visit within 1 month. 12/23/2021: Bert presents today with his for follow-up for his lung cancer. He states he is feeling better finally today after the past 2 weeks with pneumonia. He finished his antibiotic yesterday. He is still short of breath, but this is somewhat improved. He continues with cough but denies chest pain, fever or chills. He is tolerating durvalumab well- no diarrhea, skin rash or abdominal pain. Labs reviewed and ok for treatment. We will have him get a chestXR prior to treatment today and will plan his re-staging CT scan for 2-3 weeks with follow-up after. He will continue monthly durvalumab unless he progresses, has a pneumonitis or other new symptoms of toxicity arise. 11/11/2021: Bert presents with his for follow-up. His severe right-sided chest pain and dyspnea has now completely resolved from last visit. He has not had any suggestive toxicities from durvalumab--no diarrhea, skin rashes, or recurrent dyspnea. He has returned to normal performance status and denies any fatigue. We reviewed his laboratories showing no immunotherapy related endocrine toxicities. Since he is now at normal baseline, I will give his 2-week dosing of durvalumab today then change to every 4-week dosing. His next follow-up with me will be in 6 weeks and he will have restaging CT chest in lateFebruary unless new symptoms arise. 10/14/2021: Bert was sent to ER 1 week ago (10/07/2021) after presenting with severe right-sided chest pain for about 1 week. He did not report worsening with inspiration but was worse with eating. Chest CT showed regression of priorright middle lobe tumor with internal necrosis and regression of prior adenopathy. There was an infiltrate posterior to his mass and no evidence of pulmonary embolism. He completed a course of azithromycin and notes that his chest pain is now completely resolved. Hehas no dyspnea with exertion or cough. Otherwise tolerated initial Durvalumab dose well--few loose stools the evening of his dose but no anny diarrhea, no skin rashes, and laboratories are stable. He also notes that Dr. Smith recommended starting N-acetylcysteine supplementation for his immunity,however I asked him to hold this for now sincehe has only recently started durvalumab and I will research whether this is indicated with his immunotherapy. --We will continue every 2-week durvalumab to see if he has any further toxicities, then follow-up in 1 month. If well-tolerated we will change to every 4-week dosing. 09/24/2021: Bert presents with his to discuss commencing immunotherapy after completing 6 weeks of concurrent chemoradiation (last dose chemo 09/10, last radiation 09/16). Fatigue improved but he has had 3 episodes of epistaxis over the past week (longest lasting about 6-7 minutes). Improved with saline nasal spray--offered ENT eval but he wants to observe. Mild dyspnea on exertionand cough.Today we discussed immunotherapy maintenance with Durvalumab over one year (initially every 2 weeks, then every 4 weeks if well tolerated). Goal of therapy is curative. --Today we reviewed immunotherapy (checkpoint inhibitor) counseling for Durvalumab. Common toxicities were reviewed to include infusion reactions and allergic reactions, fatigue, skin rashes, visual and ocular toxicities, diarrhea, abdominal pain from pancreatitis, and abnormal thyroid, adrenal, and pituitary function. Other toxicities may include pneumonitis, sexual side effects, neurologic, hepatic and renal toxicities. The patient signed informed consent and will follow-up as directed. I will see him C2D1 durvalumab for tox check. 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 He has tolerated his treatment exceptionally well and has had very few side effects/toxicities to therapy. He reports good appetite, stable weight.Essentially has no pain and has only required 4 doses of Zofran for breakthroughnausea. He has mild GERD-like symptoms, well controlled with Prilosec. Specifically denies any issues with headaches, fever/chills, cough, shortness ofbreath, bowel/bladder problems, peripheral neuropathy, skin rash or lower extremity edema. --He will complete radiotherapy on Tuesday, September 16, 2021 and his last cycle (#6) weekly Carbo/Taxol will be given today. 08/27/2021: Here for week for follow-up of weekly carboplatin paclitaxel. Fatigue mildly increased with decreased appetite and minimal dysphagia but does not need to take additional medicine other than Tylenol for this. Otherwise no cough, dyspnea, fever, chills and no significant peripheral neuropathy. He willfollow-up in 2 weeks for chemoradiation toxicity visit with our nurse practitioner. I will then see him in 4 weeks after completion of chemoradiationand will discuss whether he gets consolidation carboplatin paclitaxel after restaging scan or continue with maintenance immunotherapy alone . 08/12/2021: Started concurrent chemoradiation with weekly Carboplatin/Paclitaxelone week ago. Tolerating well without cough, dyspnea, chest pain, bowel or bladder symptoms, or neuropathy. Will continue to follow every 2 weeks while onchemoradiation--likely candidate for one year immunotherapy with Imfinzi if response. 07/17/2021: This is a now 73 yo male accompanied by his for new diagnosis of right upper lobe mass, wrapping around right mainstem bronchus, with associated mediastinal adenopathy. He apparently had right upper lobe pneumonia in 2019, no imaging since that time. He is a former smoker, prior 40 year history, quit about 18 years ago. About 1-2 months ago he had persistent nonproductive cough without hemoptysis. Increased dyspnea, but his notes he has had chronic dyspnea over the past 4 years. Slow nonquantified weight loss, decreased appetite, hoarseness, and mild right chest discomfort. CT [facility] showed a large lobulated mass of the superior segment of the right upper lobe extending to the hilum. There appears to be invasion of the mass into the rightmainstem bronchus. The mass measures approximately 5.5 x 7.6 x 6.0 cm. There is a low density lesion in the liver that appears to be a cyst. Bronchoscopy showed invasion of the right mainstem bronchus and confirms squamous cell carcinoma ofthe lung. He does not have other significant comorbidities, prior malignancy, or known family history. We discussed that involvement of the right mainstem bronchus and mediastinum is consistent with l noemiely Stage III lung cancer, but he needs a PET/CT to exclude liver metastases. If no distant metastatic disease on PET/CT, we will coordinate chemoradiation with weekly carboplatin/paclitaxel. I ordered PET/CT, radiation oncology consultation and reviewed informed consent for Carboplatin/Paclitaxel. I will see him the same day as Radiation Oncology consult to review PET/CT. He did sign informed consent today to expedite concurrent chemoradiation if no distant metastatic disease. We will also contact pathology to add PDL1 status--if metastatic disease, he may be a candidate for immunotherapy +/- chemotherapy. Today we reviewed chemotherapy counseling for weekly Carboplatin and Paclitaxel. Goal of therapy iscurative if stage III. Common toxicities were reviewed to include infusion reactions/allergic reactions, myelosuppression, fatigue, nausea, vomiting, constipation, diarrhea, mouth sores, and alopecia. Other toxicities may include pneumonitis, neurologic, hepatic and renal toxicities. Risk of secondary malignancy due to effects of chemotherapy on bone marrow. Thepatient signed informed consent andwill follow-up as directed. Summary of Therapies Summary of Therapies: 08/06/2021: Commenced concurrent chemoradiation with Carboplatin AUC 2 IV Day 1 and Paclitaxel 45mg/m2 IV Day 1 weekly x 6 cycles. He was started on concurrent chemoradiotherapy treatment and received a dose of 6000 cGy to the right upper lobe mass and mediastinal nodes (bilateral) in 30 fractions from 08/06/2021 to 09/16/2021 over 41 elapsed days. Last cycle chemotherapy: 09/10/2021 - 09/30/2021: Cycle 1, Day 1 Durvalumab 10mg/kg IV every 2 weeks immunotherapy x 1 year. After 11/11/2021 2-week dose, changed to flat dose 1500 mg IV every 4- week dosing to complete 1 year of adjuvant immunotherapy. Last dose 09/01/2022. ~~~~~~~~~~~~~~~~~~~~~~~~~~~~~ 09/27/2024: Reviewed and signed informed consent for docetaxel and Cyramza at 100% dose. Likely to commence within the next week. Ramucirumab + docetaxel Day 1: Ramucirumab 10mg/kg IV + docetaxel 75mg/m2 IV. Repeat cycle every 3 weeks. Intake Vitals/Pain Assessment 09/27/24 13:02 Height 5 ft 10 in Weight 119.748 kg BMI 37.8 Body Fat % 56.37 BP 148/84 H Blood Pressure Location Lt brachial Position Sitting Temp 97.5 F L Temp Source Temporal Pulse 93 Pulse Source NIBP Respiration 16 Pulse Oximetry (%) 95 Oxygen Delivery Method room air Are you having pain? No Intake Visit Reasons: Follow Up after PET, follow up visit Accompanied by: Spouse Allergies No Known Drug Allergies Allergy (Unknown, Verified 09/27/24 13:10) none - Last Reconciled 09/27/24 by SUNNI Pfeiffer acetylcysteine (NAC) 1,200 mg PO DAILY aspirin 81 mg PO DAILY berberine chloride 750 mg PO DAILY carvedilol 3.125 mg PO Q12H dihydroberberine (Berberine ES-5) mg PO docusate sodium (Colace) 200 mg PO QHS hydrochlorothiazide 25 mg PO DAILY 30 days hydrocodone-acetaminophen 5-325 mg 1 tab PO Q6HR PRN 3 days losartan 25 mg PO DAILY simvastatin (Zocor) 80 mg PO DAILY Gastrointestinal Is the patient taking opioids for pain control?: No Falls Fall Precaution Measures Taken: Patient in chair Nurse's Note: Patient is here today for a follow up visit and go over Pet Scan. Cancer treatment education bag and all contents including [facility] My cancer treatmentguide, signs and symptoms sheet, yellow fever card, magnet, caregiver resource list, heal well nutrition guide, and cancer rehabilitation pamphlet provided anddiscussed with patient. Patient also provided with copy of consent, doctors business card, and clinic contact information. Printed drug information also provided and discussed with patient. All questions were answered to patient?s satisfaction and patient verbalizes understanding. [facility] Medical History Medical History Traction bronchiectasis History of tobacco abuse Drug-induced pneumonitis Staghorn renal calculus Pulmonary fibrosis Non-small cell cancer of right lung Hyperlipidemia Hypertensive heart disease Lung mass Surgical History Surgical History History of carpal tunnel release History of neck surgery Family History Family History Father Heart disease Mother Diabetes Hypertension Sister Cancer Father Heart disease Mother Hypertension Diabetes Sister Cancer Legacy FamHx Problem: Diagnosed with Cancer Social History Social History Smoking status: Former smoker What tobacco products do you use: cigarettes Smoking quit date/years:>15 years ago Within the past year, how often did you have a drink containing alcohol: never AUDIT-C Alcohol total score: 0 AUDIT-C Alcohol score interpretation: A score less than 4 is consistent with normal alcohol consumption. 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 CONSTITUTIONAL: No significant fatigue, negative for fever or night sweats. Independent for ADLs and not requiring home oxygen. HEAD AND NECK: Negative for changes in hearing and vision. Negative for mouth ulcers, nasal congestion and nasal drainage. No recurrence of prior epistaxis. PULMONARY: October 2023 ER visit for dyspnea, noted early pneumonia but did notrequire admission. Intermittent right chest wall pain--regression of tumor withnecrosis and small infiltrate noted on CT--prior cavitary lesion within area of consolidation of right lower lobe is now resolved. Recurrentdyspnea/cough intermittent and continues to improve. He has been titrated off maintenance 10 mg prednisone. No hoarseness or significant dyspnea on exertion. CARDIOVASCULAR: Negative for claudication and irregular heartbeat/palpitations. No edema. GASTROINTESTINAL: Negative for abdominal pain, constipation, diarrhea, nausea, or vomiting. Improved appetite and improving dysphagia/resolved odynophagia as per HPI. GENITOURINARY: Negative for dysuria and hematuria. + h/o nephrolithiasis--left kidney shows staghorn calculus on imaging but patient does not have any symptoms, primary care elected continued observation only. ENDOCRINE: Negative for cold intolerance and heat intolerance. CENTRAL NERVOUS SYSTEM: Negative for gait disturbance and headache. No history of stroke. PSYCHIATRIC: Negative for anxiety or depression. DERMATOLOGICAL: Negative for pruritus and rash. Negative for suspicious skin lesions. MUSCULOSKELETAL: Negative for back pain and bone/joint symptoms. HEMATOLOGICAL: Negative for bleeding and easy bruising. Negative for history of transfusion or thromboembolic disease ALLERGY: Negative for environmental allergies and food allergies. Physical Exam EXAM ECOG PS 1, Pain 0/10 CONSTITUTIONAL: The patient is in no acute distress. HEAD / FACE: Normocephalic; atraumatic, no scleral icterus. EYES: Pupils are equal and reactive to light. Conjunctivae and lids are benign in appearance. Ocular movement intact. EARS: Hearing grossly intact. Exam deferred, here for review of imaging and chemotherapy consent. See exam below from 09/12/2024. NOSE / MOUTH / THROAT: Nose, mouth, tongue and oropharynx are benign in appearance. No signs of inflammation. NECK / THYROID: Neck is supple. Thyroid is symmetrical, without thyromegaly, masses or palpable nodules. LYMPHATIC: No palpable cervical, supraclavicular, axillary, or inguinal adenopathy. RESPIRATORY: Normal to inspection. Lungs clear to auscultation bilaterally--prolonged expiratory phase similar to prior exams; no significant rhonchi, wheezes or rales. Nonlabored respirations CARDIOVASCULAR: Regular rate and rhythm. No murmurs, gallops, or rubs. VASCULAR: Carotid, radial, femoral and pedal pulses present bilaterally. No bruits. ABDOMEN: Bowel sounds normoactive. Soft, nontender and non-distended. No hepatosplenomegaly. No masses. INTEGUMENTARY: The skin is unremarkable. No rashes. No suspicious lesions MUSCULOSKELETAL: Normal musculature, no joint deformities or abnormalities, normal range of motion for all four extremities. EXTREMITIES: No edema, cyanosis or clubbing. NEUROLOGICAL: Alert and oriented. Cranial nerves intact. No gross motor or sensory deficits. Ambulates independently. PSYCHIATRIC: No anxiety or evidence of depression. Results - [facility] ([facility] LAB RESULTS Corrected WBC 10.1 X10E3/uL (4.1-10.5) 09/10/24 09:19 Hgb 13.0 g/dL (13.0-17.0) 09/10/24 09:19 09/10/24 Hct 39.2 % (38.8-50.0) 09/10/24 09:19 09/10/24 MCV 86.1 fl (83.5-101) 09/10/24 09:19 09/10/24 RDW 15.2 % (12.0-14.8) H 09/10/24 09:19 09/10/24 Plt Count 437 x10E3/uL (150-450) 09/10/24 09:19 09/10/24 RADIOLOGY/IMAGING RESULTS PET tumor subq tx strat sb-mt 09/24/2024 [...] node in the right supraclavicular region measuring 15mm in shortest axis. There is a maximum [...] within the left gluteal musculature with a maximumSUV of 5.2. There is physiologic radiotracer accumulation in the brain, salivary glands, myocardium, liver, bowel, kidneys, ureters, and bladder. PET/PET tumor subq tx strat sb-mt IMPRESSION: There is a peripherally FDG avid since the prior mass in the right upper lobe asnoted above with hilar, mediastinal, and right supraclavicular lymphadenopathy. There is a nonspecific focus of FDG accumulation within the left gluteal musculature with a maximumSUV of 5.2. Impression dictated by: Carlos Cavanaugh M.D.09/24/2024 3:50 PM Dictated By: Natacha Hess MD DD/ 1302 Signed By: 09/28/24 1352 [facility]10-30-2024 Evaluation note* Diagnosis Onset Date Resolution Status Admit Date Drug-induced pneumonitis chronic September 12, 2024 9:03am Malignant neoplasm of overlapping sites of right bronchus and lung chronic September 12, 2024 9:03am Staghorn renal calculus chronic O ctober 2023 9:03am Encounter for coordination o f complex care inactive September 12 9:03am Drug-induced pneumonitis chronic September 27, 2024 1:01pm Malignant neoplasm of overlapping sites of right bronchus and lung chronic September 27, 2024 1:01pm Staghorn renal calculus chronic N ovember 2023 1:01pm Encounter for coordination o f complex care inactive September 27 1:01pm Drug-induced pneumonitis chronic September 27, 2024 1:36pm Malignant neoplasm of overlapping sites of right bronchus and lung chronic September 27, 2024 1:36pm Malignant neoplasm of upper lobe, right bronchus or lung chronic Nov ember 2023 1:36pm Staghorn renal calculus chronic N ovember 2023 1:36pm Epistaxis resolved September 27, 2024 1:36pm Hypokalemia resolved September 1:36pm Radiation-induced esophagitis resolv ed September 27, 2024 1:36pm Chest pain inactive September 27, 2024 1:36pm Encounter for antineoplastic immunotherapy inactive September 27, 024 1:36pm Encounter for chemotherapy management inactive September 27 1:36pm Encounter for coordination o f complex care inactive September 27 1:36pm Right-sided chest wall pain inactive September 27, 2024 1:36pm [facility] Work Phone: 1(540) 262-417710-30-2024 Evaluation note* Diagnosis Onset Date Resolution Status Admit Date Drug-induced pneumonitis chronic September 12, 2024 9:03am Encounter for coordination o f complex care chronic October 30th, 20 24 9:03am Malignant neoplasm of overlapping sites of right bronchus and lung chronic September 12, 2024 9:03am Staghorn renal calculus chronic O ctober 2023 9:03am Drug-induced pneumonitis chronic September 27, 2024 1:01pm Encounter for chemotherapy management chronic September 27, 024 1:01pm Encounter for coordination o f complex care September 27 024 1:01pm Malignant neoplasm of overlapping sites of right bronchus and lung September 27, 2024 1:01pm Staghorn renal calculus chronic N ovember 2023 1:01pm Drug-induced pneumonitis chronic October 17, 2024 8:14am Encounter for chemotherapy management October 17 8:14am Epistaxis chronic October 17, 2024 8:14am Malignant neoplasm of overlapping sites of right bronchus and lung chronic October 17, 2024 8:14am Staghorn renal calculus chronic D ecember 2023 8:14am Candidiasis of mouth and esophagus acute November 08, 2 024 2:57pm Drug-induced pneumonitis chronic November 08, 2024 2:57pm Encounter for chemotherapy management chronic November 08, 024 2:57pm Epistaxis chronic November 08, 2024 2:57pm Malignant neoplasm of overlapping sites of right bronchus and lung chronic November 08, 2024 2:57pm Staghorn renal calculus chronic D ecember 2023 2:57pm Drug-induced pneumonitis chronic November 19, 2024 9:12am Encounter for antineoplastic immunotherapy chronic November 19 9:12am Encounter for chemotherapy management chronic November 19 9:12am Encounter for coordination o f complex care chronic November 19 9:12am Epistaxis chronic November 19 025 9:12am Malignant neoplasm of overlapping sites of right bronchus and lung chronic November 19 025 9:12am Malignant neoplasm of upper lobe, right bronchus or lung chronic Brian uary 2024 9:12am Staghorn renal calculus chronic J anuary 2024 9:12am Hypokalemia resolved November 19, 2024 9:12am Radiation-induced esophagitis resolv ed November 19, 2024 9:12am Chest pain inactive November 19 025 9:12am Right-sided chest wall pain inactive November 19, 2024 9:12am Candidiasis of mouth and esophagus acute November 19 9:29am Drug-induced pneumonitis chronic November 19, 2024 9:29am Encounter for chemotherapy management chronic November 19 9:29am Epistaxis chronic November 19 9:29am Malignant neoplasm of overlapping sites of right bronchus and lung chronic November 19 9:29am Staghorn renal calculus chronic J an2024 9:29am [facility] Work Phone: 1(614) 922-954101-25-2024 Evaluation note* Encounter Date Diagnosis Assessment Notes Treatment Notes Treatment Clinical Notes Nov, Pulmonary fibrosis (ICD-10 - J84.10) Appears unchanged on recent imaging. Associated with radiation treatment. Nov, Traction bronchiectasis (ICD-10 - J47.9) Most prominent in the RUL - associated with post-radiation pulmonary fibrosis. Asymptomatic. Monitor for development of cough, recurrent infections. Nov, Non-small cell cancer of right lung (ICD-10 - C34.91) F/U with Dr. Hess. Nov, Pleurisy (ICD-10 - R09.1) Discussed F/U - he states that he believes he will have a chest CT upcoming in the next several months and he would like to wait it out until the CT is due. If it worsens, then he will discuss about getting it sooner. Nov, History of tobacco abuse (ICD-10 - Z87.891) Nov, Other This documentat ion is being amended on 12/19/2023 due to an internal data corruption event that occurred on 12/08/2023. This data corruption event was NOT the result of any breach, fraud, or malicious third-republican actors and no personal patient information was compromised. [employer] Other 08-01-2023 Evaluation note* Encounter Date Diagnosis Assessment Notes Treatment Notes Treatment Clinical Notes Jun, Non-small cell cancer of right lung (ICD-10 - C34.91) Jun, Pulmonary fibrosis (ICD-10 - J84.10) [employer] Other 06-22-2023 Progress note Author Natacha Hess [facility] May 05, 2023 10:30am Note Date/Time May 05, 2023 9:15 am [facility] at [address] [address] Hem/Onc Follow Up Note - OP Signed Patient: Bert Yeung MR#: [id number] : 1950 Acct:[id number] Age/Sex: 72 / M Type: REG RCR Copies to: MD Alicia Yañez MD~ Subjective Date/Time of Service: Date of Service: 05/05/2023 Time of Service: 09:15 Chief Complaint: Patient is here today for a 3 month follow up visit and go overCT scan and labs HPI: 05/05/2023: 3-month follow-up with review of CT of chest. Now nearly 9 months from completion of adjuvant durvalumab with prednisone now at 10 mg daily, followed by Dr. Mathews. Dyspnea is stable from prior visits but no further ERvisits or admissions. No recent infections or antibiotics. Laboratories unremarkable with normal hemoglobin, mild hypokalemia that he will follow-up with his primary care physician. Imaging is remarkable for stable posttreatmentchanges of the right upper lobe with volume loss and a small loculated right pleural effusion but no new consolidations suggestive of recurrence. There weresubcentimeter low-attenuation lesions near the gallbladder fossa which are unchanged from prior study and he is noted to have a staghorn type calculus in the left kidney without obstruction. I will have him discuss with primary care whether he should see urology for further evaluation. The patient denies any flank pain, urinary infections, or change in frequency. -- Since symptoms are stable and imaging has not shown any recurrence, I recommend extending his CT and follow-up visits to every 4 months. At his next follow-up in August he will be 1 year from end of adjuvant durvalumab. Patientis in agreement with this plan over this low complexity 25-minute follow-up for surveillance of lung cancer symptoms and imaging. 02/03/2023: 3-month follow-up and review of CT of chest. He is now nearly 6 months from completion of adjuvant durvalumab. His prednisone is titrated down to 5 mg daily and cough is intermittent. Still has dyspnea with moderate activity. No further ER visits or admissions. No infections, nausea, vomiting,diarrhea, and no abnormalities on immunotherapy labs. CT of chest shows no new infiltrate. Stable 13 mm focus in the right hepatic lobe which is unchanged from original CTs prior to starting therapy in 2020. We will continue to followevery [address], but should not require immunotherapy labs except annual TSH/free T4. He may return sooner if signs or symptoms of recurrence. Low complexity 25-minute follow-up for surveillance lung cancer. 11/04/2022: Fer is here for 3-month follow-up and review of CT chest after completing last dose 09/01/2022 of 1 year adjuvant durvalumab after concurrent chemoradiation. His dyspnea and cough recur intermittently and he remains on low-dose prednisone 10 mg daily with follow-up planned with Dr. Ann in mid November. He has not had any further ER visits or evidence of infection. No nausea/vomiting, diarrhea, bone pain, and immunotherapy labs normal. We will recheck his thyroid function tests with CBC and CMP at his 3-month follow-up. We reviewed images and reports of CT scans of chest from April, July, and most recent 11/01/2022 restaging scans. He has stable soft tissue prominence inthe right hilum and to a lesser extent the left hilum. Airspace opacities in the right perihilar distribution of the right upper lobe with a lesser extent inthe left perihilar region is unchanged compared to prior exam. Stable 13 mm focus of hypoattenuation in right hepatic lobe favoring cyst. 1.6 cm stone in the left renal pelvis. No obvious bony metastatic lesions. The patient denies any back pain or dysuria/hematuria. We will plan to follow-up exam, labs, and imaging in 3 months. He may return sooner if signs or symptoms of recurrence. Moderate complexity 35-minute follow-up visit for review of symptoms, labs, and images after completing 1 year of durvalumab maintenance therapy. 08/04/2022: Bert is here for follow-up on durvalumab maintenance therapy. He has 2 more doses 1 today and 1 in 4 weeks then will complete his 1 year maintenance therapy. He was seen by Dr. Ann of pulmonary medicine who has prescribed serial prednisone tapers for pneumonitis (40 mg x 1 week, 30 mg x 1 week, 20 mg x 1 week, 10 mg x 1 week and repeat each month). His dyspnea and cough has somewhat stabilized since the steroid courses, although he had a coughing fit yesterday that lasted about 3 hours. He did not seek any furtherevaluation in the emergency room and this has now resolved. He is currently on 30 mg daily of his prednisone without any significant cough or dyspnea greater than baseline. Otherwise no immunotherapy related toxicities such as rash or diarrhea. We reviewed his restaging CT chest from 08/02/2022 that shows persistent consolidative changes in the right upper lobe with loculated pleural effusion that is unchanged. Prior cavitary component has essentially resolved since prior study with stable scarring in the left hilar region. No new pulmonary nodules are noted. Labs show mild leukocytosis related to his steroids but otherwise stable hemoglobin and normal platelet count. Renal and hepatic function normal and no abnormalities of thyroid or adrenal function. Rachelwill continue 2 further cycles of therapy with durvalumab then stop. Follow-up in 3 months with contrast chest CT. He may return sooner as needed. Moderate complexity 35-minute follow-up visit for review of images and reports of CT and discussion of further therapy. 05/05/2022: Improvement of prior right chest wall pain with use of Medrol Dosepaks after each cycle of durvalumab. Stable dyspnea and cough. No other immunotherapy related toxicities other than pneumonitis. Restaging CT Chest reviewed--primary lesion similar size but more cavitary with surrounding ground glass opacities in prior radiation field. Will continue current durvalumab maintenance. Next f/u 3 months with contrast chest CT. End of therapy will be 08/2022 (sooner if unable to tolerate due to pneumonitis--tolerable with brief steroid course each cycle. 02/17/2022: Bert presents today to evaluate symptoms. He previously noted significant dyspnea and cough with his durvalumab, so he was given a Medrol Dosepak to start 1 day after durvalumab treatment. He states after this cycle, he noticed a significant improvement in his symptoms with initiation of the dosepak and denies any dyspnea at rest or around the house after treatment. He still has dyspnea on exertion when he's more active, but this is mild now and more his baseline. He continues to deny other symptoms such as rash, abdominal pain or diarrhea. Labs are reviewed and remain stable. We will continue with durvalumab + medrol dosepak every 4 weeks, and will plan for follow-up in [address] Hess. He will call sooner if his symptoms worsen or new symptoms develop. 01/21/2022: Bert presents for durvalumab immunotherapy today. He notes that with prior cycles he has had recurrent dyspnea and cough that is treated with steroids with some improvement about 1 week prior to his next cycle. He now notes that his shortness of breath is at baseline. He has otherwise not had anyother symptoms such as diarrhea, skin rash, or abdominal pain and his labs remained stable. 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 We discussed 1 more cycle durvalumab and I will give him a Medrol Dosepak to start 1 day after his durvalumab dose to see if we can preempt his inflammatory reaction. If he does not tolerate his durvalumab well we may consider stopping maintenance immunotherapy early. He is in agreement with thisplan. Next toxicity visit within 1 month. 12/23/2021: Bert presents today with his for follow-up for his lung cancer. He states he is feeling better finally today after the past 2 weeks with pneumonia. He finished his antibiotic yesterday. He is still short of breath, but this is somewhat improved. He continues with cough but denies chest pain, fever or chills. He is tolerating durvalumab well- no diarrhea, skin rash or abdominal pain. Labs reviewed and ok for treatment. We will have him get a chestXR prior to treatment today and will plan his re-staging CT scan for 2-3 weeks with follow-up after. He will continue monthly durvalumab unless he progresses, has a pneumonitis or other new symptoms of toxicity arise. 11/11/2021: Bert presents with his for follow-up. His severe right-sided chest pain and dyspnea has now completely resolved from last visit. He has not had any suggestive toxicities from durvalumab--no diarrhea, skin rashes, or recurrent dyspnea. He has returned to normal performance status and denies any fatigue. We reviewed his laboratories showing no immunotherapy related endocrine toxicities. Since he is now at normal baseline, I will give his 2-week dosing of durvalumab today then change to every 4-week dosing. His next follow-up with me will be in 6 weeks and he will have restaging CT chest in lateFebruary unless new symptoms arise. 10/14/2021: Bert was sent to ER 1 week ago (10/07/2021) after presenting with severe right-sided chest pain for about 1 week. He did not report worsening with inspiration but was worse with eating. Chest CT showed regression of priorright middle lobe tumor with internal necrosis and regression of prior adenopathy. There was an infiltrate posterior to his mass and no evidence of pulmonary embolism. He completed a course of azithromycin and notes that his chest pain is now completely resolved. He has no dyspnea with exertion or cough. Otherwise tolerated initial Durvalumab dose well--few loose stools the evening of his dose but no anny diarrhea, no skin rashes, and laboratories are stable. He also notes that Dr. Smith recommended starting N-acetylcysteine supplementation for his immunity, however I asked him to hold this for now sincehe has only recently started durvalumab and I will research whether this is indicated with his immunotherapy. --We will continue every 2-week durvalumab to see if he has any further toxicities, then follow-up in 1 month. If well-tolerated we will change to every 4-week dosing. 09/24/2021: Bert presents with his to discuss commencing immunotherapy after completing 6 weeks of concurrent chemoradiation (last dose chemo 09/10, last radiation 09/16). Fatigue improved but he has had 3 episodes of epistaxis over the past week (longest lasting about 6-7 minutes). Improved with saline nasal spray--offered ENT eval but he wants to observe. Mild dyspnea on exertionand cough. Today we discussed immunotherapy maintenance with Durvalumab over one year (initially every 2 weeks, then every 4 weeks if well tolerated). Goal of therapy is curative. --Today we reviewed immunotherapy (checkpoint inhibitor) counseling for Durvalumab. Common toxicities were reviewed to include infusion reactions and allergic reactions, fatigue, skin rashes, visual and ocular toxicities, diarrhea, abdominal pain from pancreatitis, and abnormal thyroid, adrenal, and pituitary function. Other toxicities may include pneumonitis, sexual side effects, neurologic, hepatic and renal toxicities. The patient signed informed consent and will follow-up as directed. I will see him C2D1 durvalumab for tox check. 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 He has tolerated his treatment exceptionally well and has had very few side effects/toxicities to therapy. He reports good appetite, stable weight.Essentially has no pain and has only required 4 doses of Zofran for breakthroughnausea. He has mild GERD-like symptoms, well controlled with Prilosec. Specifically denies any issues with headaches, fever/chills, cough, shortness of breath, bowel/bladder problems, peripheral neuropathy, skin rash or lower extremity edema. --He will complete radiotherapy on Tuesday, September 16, 2021 and his last cycle (#6) weekly Carbo/Taxol will be given today. 08/27/2021: Here for week for follow-up of weekly carboplatin paclitaxel. Fatigue mildly increased with decreased appetite and minimal dysphagia but does not need to take additional medicine other than Tylenol for this. Otherwise no cough, dyspnea, fever, chills and no significant peripheral neuropathy. He willfollow-up in 2 weeks for chemoradiation toxicity visit with our nurse practitioner. I will then see him in 4 weeks after completion of chemoradiationand will discuss whether he gets consolidation carboplatin paclitaxel after restaging scan or continue with maintenance immunotherapy alone. 08/12/2021: Started concurrent chemoradiation with weekly Carboplatin/Paclitaxelone week ago. Tolerating well without cough, dyspnea, chest pain, bowel or bladder symptoms, or neuropathy. Will continue to follow every 2 weeks while onchemoradiation--likely candidate for one year immunotherapy with Imfinzi if response. 07/17/2021: This is a 71 yo male accompanied by his for new diagnosis of right upper lobe mass, wrapping around right mainstem bronchus, with associated mediastinal adenopathy. He apparently had right upper lobe pneumonia in 2019, no imaging since that time. He is a former smoker, prior 40 year history, quit about 18 years ago. About 1-2 months ago he had persistent nonproductive cough without hemoptysis. Increased dyspnea, but his notes he has had chronic dyspnea over the past 4 years. Slow nonquantified weight loss, decreased appetite, hoarseness, and mild right chest discomfort. CT Chest imaging at [facility] on 06/23/2021 showed a large lobulated mass of the superior segment of the right upper lobe extending to the hilum. There appears to be invasion of themass into the right mainstem bronchus. The mass measures approximately 5.5 x 7.6x 6.0 cm. There is a low density lesion in the liver that appears to be a cyst. 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 He does not have other significant comorbidities, prior malignancy, or known family history. We discussed that involvement of the right mainstem bronchus and mediastinum is consistent with likely Stage III lung cancer, but he needs a PET/CT to exclude liver metastases. If no distant metastatic disease on PET/CT, we will coordinate chemoradiation with weekly carboplatin/paclitaxel. I ordered PET/CT, radiation oncology consultation and reviewed informed consent for Carboplatin/Paclitaxel. I will see him the same day as Radiation Oncology consult to review PET/CT. He did sign informed consent today to expedite concurrent chemoradiation if no distant metastatic disease. We will also contact pathology to add PDL1 status--if metastatic disease, he may be a candidate for immunotherapy +/- chemotherapy. Today we reviewed chemotherapy counseling for weekly Carboplatin and Paclitaxel. Goal of therapy is curative if stage III. Common toxicities were reviewed to include infusion reactions/allergic reactions, myelosuppression, fatigue, nausea, vomiting, constipation, diarrhea, mouth sores, and alopecia. Other toxicities may include pneumonitis, neurologic, hepatic and renal toxicities. Risk of secondary malignancy due to effects of chemotherapy on bone marrow. Thepatient signed informed consent and will follow-up as directed. - Summary of Therapies Summary of Therapies: 08/06/2021: Commenced concurrent chemoradiation with Carboplatin AUC 2 IV Day 1 and Paclitaxel 45mg/m2 IV Day 1 weekly x 6 cycles. He was started on concurrent chemoradiotherapy treatment and received a dose of 6000 cGy to the right upper lobe mass and mediastinal nodes (bilateral) in 30 fractions from 08/06/2021 to 09/16/2021 over 41 elapsed days. Last cycle chemotherapy: 09/10/2021 - 09/30/2021: Cycle 1, Day 1 Durvalumab 10mg/kg IV every 2 weeks immunotherapy x 1 year. After 11/11/2021 2-week dose, changed to flat dose 1500 mg IV every 4-week dosing to complete 1 year of adjuvant immunotherapy. Last dose 09/01/2022. ROS Details: All systems reviewed & no additional complaints except as documented Subjective/ROS - Narrative: CONSTITUTIONAL: Stable mild fatigue (after chemoradiation completed), negative for fever or night sweats. Independent for ADLs and not requiring home oxygen. HEAD AND NECK: Negative for changes in hearing and vision. Negative for mouth ulcers, nasal congestion and nasal drainage. No recurrence of prior epistaxis. PULMONARY: Late September 2021 ER for worsening right chest wall pain--regressionof tumor with necrosis and small infiltrate noted on CT--prior cavitary lesion within area of consolidation of right lower lobe is now resolved. Recurrent dyspnea/cough intermittent and continues to improve. He continues maintenance 10 mg prednisone prescribed by Dr. Mathews. No hoarseness or significant dyspnea on exertion. CARDIOVASCULAR: Negative for claudication and irregular heartbeat/palpitations. No edema. GASTROINTESTINAL: Negative for abdominal pain, constipation, diarrhea, nausea, or vomiting. Improved appetite and improving dysphagia/resolved odynophagia as per HPI. GENITOURINARY: Negative for dysuria and hematuria. + h/o nephrolithiasis--left kidney shows staghorn calculus on imaging but patient does not have any symptoms. Defer to primary care whether he would request urology evaluation. ENDOCRINE: Negative for cold intolerance and heat intolerance. CENTRAL NERVOUS SYSTEM: Negative for gait disturbance and headache. No history of stroke. PSYCHIATRIC: Negative for anxiety or depression. DERMATOLOGICAL: Negative for pruritus and rash. Negative for suspicious skin lesions. MUSCULOSKELETAL: Negative for back pain and bone/joint symptoms. HEMATOLOGICAL: Negative for bleeding and easy bruising. Negative for history of transfusion or thromboembolic disease ALLERGY: Negative for environmental allergies and food allergies. PMFSH - History Attestation statement: The following information was validated with the patient. Source: Old Records Reviewed - Medical History Medical History: Medical History (Last Reviewed 05/05/23 @ 10:24 by Natacha Hess MD) Cough Hyperlipidemia Hypertensive heart disease Kidney stone Lung mass Shortness of breath - Surgical History Surgical History: Surgical History (Last Reviewed 05/05/23 @ 10:24 by Natacha Hess MD) History of carpal tunnel release History of neck surgery - Family History Family History: Family History (Last Reviewed 05/05/23 @ 10:24 by Natacha Hess MD) Father Heart disease Mother Diabetes Hypertension Sister Cancer - Social History Smoking Status: Former smoker Substance Use Type: None Home Medications & Allergies Allergies No Known Drug Allergies Allergy (Unknown, Verified 05/05/23 09:11) none Home Medications simvastatin 40 mg tablet (Zocor) 80 mg PO DAILY 02/26/18 [History Confirmed 05/05/23] aspirin 81 mg chewable tablet 81 mg PO DAILY ##0 02/27/18 [Rx Confirmed 05/05/23] hydrochlorothiazide 25 mg tablet 25 mg PO DAILY 30 days #30 tabs 02/27/18 [Rx Confirmed 05/05/23] carvedilol 3.125 mg tablet 3.125 mg PO Q12H 07/17/21 [History Confirmed 05/05/23] losartan 25 mg tablet 25 mg PO DAILY 07/17/21 [History Confirmed 05/05/23] docusate sodium 100 mg capsule (Colace) 200 mg PO QHS 01/21/22 [History Confirmed 05/05/23] prednisone 10 mg tablet 5 mg PO DAILY 11/04/22 [History Confirmed 05/05/23] Objective - Height/Weight Height/Weight: Height 5 ft 10 in Weight 123.831 kg BSA for Today's Weight 2.44 - Vital Signs Vital Signs: 05/05/23 09:11 Temperature 97.8 F Pulse Rate [Left Brachial] 87 Respiratory Rate 16 Blood Pressure [Right Arm] 146/85 H 02 Sat by Pulse Oximetry 97 Oxygen Delivery Method Room Air - Pain Right Chest Pain Intensity: 2 - Distress Screening Distress Screen Results: RN Distress Screening Start: 07/17/21 11:07 Freq: Status: Complete Protocol: Document 09/01/21 09:44 DB (Rec: 09/01/21 09:45 DB [id number]) Distress Screening Distress Score: 2 Emotional Concerns Feeling uncertain about the future Distress Screening Total 2 Physical Exam Narrative: CONSTITUTIONAL: The patient is in no acute distress. HEAD / FACE: Normocephalic; atraumatic, no scleral icterus. EYES: Pupils are equal and reactive to light. Conjunctivae and lids are benign in appearance. Ocular movement intact. EARS: Hearing grossly intact. NOSE / MOUTH / THROAT: Nose, mouth, tongue and oropharynx are benign in appearance. No signs of inflammation. NECK / THYROID: Neck is supple. Thyroid is symmetrical, without thyromegaly, masses or palpable nodules. LYMPHATIC: No palpable cervical, supraclavicular, axillary, or inguinal adenopathy. RESPIRATORY: Normal to inspection. Lungs clear to auscultation bilaterally--prolonged expiratory phase similar to prior exams; no significant rhonchi, wheezes or rales. Nonlabored respirations CARDIOVASCULAR: Regular rate and rhythm. No murmurs, gallops, or rubs. VASCULAR: Carotid, radial, femoral and pedal pulses present bilaterally. No bruits. ABDOMEN: Bowel sounds normoactive. Soft, nontender and non-distended. No hepatosplenomegaly. No masses. INTEGUMENTARY: The skin is unremarkable. No rashes. No suspicious lesions MUSCULOSKELETAL: Normal musculature, no joint deformities or abnormalities, normal range of motion for all four extremities. EXTREMITIES: No edema, cyanosis or clubbing. NEUROLOGICAL: Alert and oriented. Cranial nerves intact. No gross motor or sensory deficits. Ambulates independently. PSYCHIATRIC: No anxiety or evidence of depression. - ECOG Performance Status ECOG Score: 1 Results - Labs Labs: Diagram of Most Recent CBC and CMP 05/02/23 09:15 05/02/23 09:15 Labs - Last 7 Days 05/02/23 09:15: Corrected WBC 8.3, Uncorrected WBC Count 8.3, RBC 4.54, Hgb 13.5, Hct 39.1, MCV 86.1, MCH 29.8, MCHC 34.6, RDW 15.2 H, Plt Count 383, MPV 7.5, Neut % (Auto) 65.4, Lymph % (Auto) 15.0, [place] % (Auto) 16.6, Eos % (Auto) 2.5, Baso % (Auto) 0.5, Nucleat RBC Rel Count 0.1, Neut # (Auto) 5.4, Lymph # (Auto) 1.2, [place] # (Auto) 1.4 H, Eos # (Auto) 0.2, Baso # (Auto) 0.0 05/02/23 09:15: PHA Creatinine Clear 79.81, Sodium 137, Potassium 3.3 L, Chloride 102, Carbon Dioxide 26.0, Anion Gap 12.3, BUN 17, Creatinine 1.15, Est GFR (CKD- EPI) > 60.0, Glucose 122 H, Calcium 9.6, Total Bilirubin 0.7, AST 15, ALT 16, Alkaline Phosphatase 53, Total Protein 7.4, Albumin 4.5, Globulin 2.9, Albumin/Globulin Ratio 1.6 - Impressions CT CHEST WITH INTRAVENOUS CONTRAST: CLINICAL HISTORY: Follow-up small cell lung cancer. Former smoker with asbestosexposure. COMPARISON: CT chest 02/01/2023 TECHNIQUE: Spiral images were obtained through the chest following intravenous administration of IV contrast. This CT exam was performed using one or more following dose reduction techniques: Automated exposure control, adjustment of themA and/or kV according to patient size, or use of iterative reconstruction technique. FINDINGS: Mediastinum:Thoracic aorta appears normal in caliber. Pulmonary trunk appears nondilated. No pleural effusion. Partially calcified mediastinal lymph nodes. The esophagus is grossly unremarkable. Lungs:Once again demonstrated are presumed posttreatment changes involving both lungs most prominent involving the right upper lobe similar configuration to theprior study. There is associated volume loss and small loculated right pleural effusion. No new consolidation, pneumothorax or left-sided pleural effusion. Nomeasurable mass. Abd:No acute findings. Cystic changes involving [...] study. Impression dictated by: Crescencio Blanca Jr., D.OAnselmo05/02/2023 2:05 PM Assessment and Plan - TNM Staging Staging: Stage IIIB right upper lobe (overlapping sites involving right mainstem bronchus). No distant metastatic disease on PET/CT for staging. (1) Malignant neoplasm of upper lobe, right bronchus or lung 72 year old male with original 1-2 month history of refractory cough, found to have moderately differentiated squamous cell carcinoma of the right mainstem bronchus and mediastinum. No distant metastatic disease on PET/CT, therefore we coordinated chemoradiation with weekly carboplatin/paclitaxel. He commenced weekly Carboplatin/Paclitaxel with radiation on 08/06/2021 and today he will be receiving #6 Carboplatin/Paclitaxel and is scheduled to completed radiation therapy on 09/16/2021. 08/12/2021: No toxicities other than mild increase in creatinine. 08/27/2021: Grade 1 odynophagia with decreased appetite. Added sucralfate slurry 1 g every 6 hours as needed for remainder of chemoradiation. 09/10/2021: Grade 1 fatigue; otherwise no significant toxicities to chemotherapy; weight is stable; stable anemia. Normal electrolytes. Minimal nausea and no significant pain other than some acid reflux like symptoms; well controlled with Prilosec. --Patient completed Cycle 6 weekly Carboplatin/Paclitaxel therapy (09/10/2021) and radiotherapy to complete on 09/16/2021. ----- 09/24/2021: Reviewed informed consent for Durvalumab maintenance therapy 10mg/kg IV every 2 weeks x 1 year (ok to change to monthly therapy if well tolerated). 10/14/2021: Patient was sent to ER for right chest wall pain on 10/07 following first durvalumab dose 09/30/2021. Noted to have regression of prior right middle lobe lesion and adenopathy with small adjacent infiltrate (this may be postradiation change but patient was placed on antibiotics). His pain has now completely resolved with no significant cough. Otherwise tolerating immunotherapy well. We will continue him on every 2-week dosing until receiving whether he has recurrent chest discomfort or symptoms on durvalumab. Next follow-up with me in 4 weeks for toxicity check on immunotherapy. We will not repeat his chest CT since this was just performed in emergency department. 01/22/2022: Patient is here for 3-month follow-up on durvalumab maintenance therapy. He has had recurrent episodes of chest wall pain and dyspnea, previously treated with antibiotics and subsequent steroids. He notes that his symptoms tend to worsen for about 1 to 2 weeks following his immunotherapy, usually beginning 2 to 3 days after therapy. I will give him a brief course of Medrol Dosepak with each cycle and he will have reassessment with nurse practitioner for toxicity visit next week to see if this prevents his cough and dyspnea symptoms. We reviewed his restaging CT chest which shows reduction in size of his cavitary lesion in the right hilum from 6.5 to 5.2 cm in greatest diameter. There are evolving postradiation changes consistent with his pneumonitis and interval development of trace right-sided pleural effusion. Next follow-up with me will be in [address] chest at that time, although he may follow-up sooner after his [employer] visit if he is having persistent pneumonitis. 02/17/2022: He has done very well with the Medrol Dosepak after Durvalumab infusion, and denies chest pain, cough or dyspnea at rest- overall near resolution of symptoms. We will continue with this plan and he will follow-up with Dr. Hess in [address], labs. He has no questions today and isin agreement with this plan. 05/05/2022: No new symptoms--stable dyspnea/cough and improved right chest discomfort with Medrol dose pack after each cycle. Restaging CT with decreasingsoft tissue component within cavitary lesion. Some surrounding ground glass opacities consistent with known pneumonitis in prior radiation field. Followup [address] Chest. Continue Medrol dose pack after each cycle. 08/04/2022: Bert notes that since he saw Dr. Ann last month his breathing hasbeen relatively stable. He was placed on tapering doses of steroids which will be Repeated monthly until the end of immunotherapy. Yesterday he had a prolonged coughing episode that has resolved and he will continue on current dose of prednisone 30 mg daily until his next scheduled step down to [address] Ann did not note any benefit from inhaled bronchodilators or steroids but did recommend systemic steroids. The patient's most recent CT scanshowed resolution of his prior cavitary lesion and overall mild regression of consolidation in the right mid to lower lung joiner. Otherwise no new nodules. The patient will receive second to last dose of durvalumab today. Last dose 1 year of maintenance durvalumab will be 09/01/2022. I will schedule restaging CT chest and follow-up with me in 3 months for survivorship visit. Hemay return sooner if new symptoms arise. Mod complexity visit over 35 minutes to review restaging scans. 11/04/2022: Stable intermittent dyspnea and cough on low-dose prednisone 20 mg daily followed by Dr. Ann who sees him in mid November. No residual symptoms concerning for immunotherapy related toxicity other than pneumonitis noted below. CT scan shows stable postradiation changes of right upper lobe and bilateral perihilar areas. No areas concerning for metastatic disease. His last dose of durvalumab was 09/01/2022. Next follow-up with restaging CT chest with contrast and labs including CBC, CMP, TSH, and free T4 in January 2023 but hemay return sooner if new symptoms arise concerning for recurrence. Okay for himto see nurse practitioner and review survivorship plan at that time. Moderate complexity 35-minute follow-up. 02/03/2023: Cough and dyspnea are slowly improving since slow titration of prednisone, now 5 mg daily. Postradiation changes but no progression on chest CT. Continue every 3-month surveillance. Low complexity follow-up 25 minutes. 05/05/2023: Cough and dyspnea stable although now maintaining prednisone 10 mg daily, following with Dr. Mathews. Postradiation changes without progression on chest CT but persistent volume loss and small right pleural effusion. Incidental note of left kidney staghorn calculus which is asymptomatic. Defer evaluation of this and mild hypokalemia to primary care. Next follow-up with chest CT with contrast will be deferred to 4 months and I will review symptoms, exam, and results of chest CT at that time. Low complexity follow-up 25 minutes. (2) Drug-induced pneumonitis Recurrent pneumonitis as addressed above. Medrol Dosepak for 1 week following next durvalumab and reassessment with next practitioner to see if this alleviates his symptoms. 02/17/2022: see above. Near resolution of symptoms with addition of Medrol Dosepak. He is back to his baseline dyspnea on exertion only with increased activity 05/05/2022: Intermittent worsening of cough and dyspnea between cycles but much improved with medrol dose pack each cycle. 08/04/2022: I reviewed progress note from consultation with pulmonary medicine Dr. Ann who recommends recurrent courses of prednisone 40 mg daily for 7 days, 30 mg daily for 7 days, 20 mg daily for 7 days, then 10 mg daily for 7 days. This will be repeated once monthly until pneumonitis improved off immunotherapy within the next 2 months. He will have follow-up appointment withDr. Ann next month. 11/04/2022: Patient does not feel that his cough and dyspnea is improved since end of durvalumab with last dose 09/01/2022, however he appears to be less symptomatic on exam today. He has maintained on prednisone 10 mg daily until follow-up with Dr. Ann next month. Imaging shows stable postradiation changes, likely exacerbated by prior immunotherapy. We will continue to follow with every 3-month scans. 02/03/2023: Cough and dyspnea are slowly improving since slow titration of prednisone, now 5 mg daily. Postradiation changes but no progression on chest CT. Continue follow-up with Dr. Ann as directed. 05/05/2023: Patient notes most recent follow-up with with Dr. Mathews and his current prednisone dose is 10 mg daily. Still no progression on chest CT but persistent postradiation changes and right lung volume loss. Continue follow-upwith pulmonary medicine as scheduled. (3) Staghorn renal calculus Left kidney staghorn calculus noted on recent imaging. Patient does not have any symptoms but has had a history of nephrolithiasis. We will defer to his primary care Dr. Smith whether he would like to refer him for urology evaluation. (4) Hypokalemia Mild hypokalemia with K3.3 on labs today. We will defer to his primary physician. (5) Encounter for coordination of complex care No distant metastatic disease on PET/CT for staging (bilateral mediastinal and subcarinal adenopathy noted). Concurrent chemoradiation commenced 08/06/2021--Carboplatin AUC 2 IV and Paclitaxel 45mg/m2 IV weekly x 6-7 weeks. Tolerated well. He completed Cycle 6 weekly Carboplatin/Paclitaxel therapy 09/10/2021 and radiotherapy complete on 09/16/2021. Cycle 1 day 1 09/30/2021 durvalumab 10mg/kg IV every 2 weeks immunotherapy as noted above. Changed to flat dose durvalumab 1500 milligrams IV every 4 weeks with 11/23/2021 dose. 08/04/2022: Continue durvalumab 1500mg IV every 4 weeks in addition to Medrol Dosepak day after each infusion given improvement of pneumonitis symptoms. End of 1 year of therapy 09/01/2022 05/05/2023: Follow-up of 3-month restaging scans and review of symptoms. Review images and reports over total 25-minute visit. - Chemo Plan Chemo Plan (Dose, Rate, Freq): Concurrent chemoradiation with Carboplatin AUC 2 IV Day 1 and Paclitaxel 45mg/m2IV Day 1 weekly x 6-7 weeks. Durvalumab 10mg/kg IV every 2 week immunotherapy x2 months then 1500mg IV q 4weeks to complete 1 year of therapy, last dose 09/01/22. Goal of Treatment: Curative - Time with Patient Time Spent with Patient (Follow Up Visit): 25 minutes - low complexity for exam and symptom review for immunotherapy related pneumonitis, 5 months from end of durvalumab therapy, restaging CT chest review. Coordination of Care & Counseling Time: Greater than 50% of time spent with patient was for coordination of care (as documented) and [id number] counseling of patient and/or family. Dictated By: Natacha Hess MD DD/ 4 Signed By: <Electronically signed by MD Natacha Hess> 05/05/23 1030 [facility] Work Phone: [phone]) 631-677904-25-2023 Evaluation note* Encounter Date Diagnosis Assessment Notes Treatment Notes Treatment Clinical Notes Feb, Non-small cell cancer of right lung (ICD-10 - C34.91) Feb, Recurrent pneumonia (ICD-10 - J18.9) Feb, Pulmonary fibrosis (ICD-10 - J84.10) [employer] Other 03-23-2023 Progress note Author Natacha Hess [facility] February 03, 2023 10:38am Note Date/Time February 03, 2023 8:[address] [facility] [place] [place] [address] Hem/Onc Follow Up Note - OP Signed Patient: Bert Yeung MR#: [id number] : 1950 Acct:[id number] Age/Sex: 72 / M Type: REG RCR Copies to: Howie Fulton MD~ Subjective Date/Time of Service: Date of Service: 02/03/2023 Time of Service: 08:32 Chief Complaint: Patient is here for a 3 month follow up with labs and scans forreview. Patient states that he has been sneezing more frequently. Patient voicesno other concerns at this time. HPI: 02/03/2023: 3-month follow-up and review of CT of chest. He is now nearly 6 months from completion of adjuvant durvalumab. His prednisone is titrated down to 5 mg daily and cough is intermittent. Still has dyspnea with moderate activity. No further ER visits or admissions. No infections, nausea, vomiting,diarrhea, and no abnormalities on immunotherapy labs. CT of chest shows no new infiltrate. Stable 13 mm focus in the right hepatic lobe which is unchanged from original CTs prior to starting therapy in 2020. We will continue to followevery [address], but should not require immunotherapy labs except annual TSH/free T4. He may return sooner if signs or symptoms of recurrence. Low complexity 25-minute follow-up for surveillance lung cancer. 11/04/2022: Fer is here for 3-month follow-up and review of CT chest after completing last dose 09/01/2022 of 1 year adjuvant durvalumab after concurrent chemoradiation. His dyspnea and cough recur intermittently and he remains on low-dose prednisone 10 mg daily with follow-up planned with Dr. Ann in mid November. He has not had any further ER visits or evidence of infection. No nausea/vomiting, diarrhea, bone pain, and immunotherapy labs normal. We will recheck his thyroid function tests with CBC and CMP at his 3-month follow-up. We reviewed images and reports of CT scans of chest from April, July, and most recent 11/01/2022 restaging scans. He has stable soft tissue prominence inthe right hilum and to a lesser extent the left hilum. Airspace opacities in the right perihilar distribution of the right upper lobe with a lesser extent inthe left perihilar region is unchanged compared to prior exam. Stable 13 mm focus of hypoattenuation in right hepatic lobe favoring cyst. 1.6 cm stone in the left renal pelvis. No obvious bony metastatic lesions. The patient denies any back pain or dysuria/hematuria. We will plan to follow-up exam, labs, and imaging in 3 months. He may return sooner if signs or symptoms of recurrence. Moderate complexity 35-minute follow-up visit for review of symptoms, labs, and images after completing 1 year of durvalumab maintenance therapy. 08/04/2022: Bert is here for follow-up on durvalumab maintenance therapy. He has 2 more doses 1 today and 1 in 4 weeks then will complete his 1 year maintenance therapy. He was seen by Dr. Ann of pulmonary medicine who has prescribed serial prednisone tapers for pneumonitis (40 mg x 1 week, 30 mg x 1 week, 20 mg x 1 week, 10 mg x 1 week and repeat each month). His dyspnea and cough has somewhat stabilized since the steroid courses, although he had a coughing fit yesterday that lasted about 3 hours. He did not seek any furtherevaluation in the emergency room and this has now resolved. He is currently on 30 mg daily of his prednisone without any significant cough or dyspnea greater than baseline. Otherwise no immunotherapy related toxicities such as rash or diarrhea. We reviewed his restaging CT chest from 08/02/2022 that shows persistent consolidative changes in the right upper lobe with loculated pleural effusion that is unchanged. Prior cavitary component has essentially resolved since prior study with stable scarring in the left hilar region. No new pulmonary nodules are noted. Labs show mild leukocytosis related to his steroids but otherwise stable hemoglobin and normal platelet count. Renal and hepatic function normal and no abnormalities of thyroid or adrenal function. Hewill continue 2 further cycles of therapy with durvalumab then stop. Follow-up in 3 months with contrast chest CT. He may return sooner as needed. Moderate complexity 35-minute follow-up visit for review of images and reports of CT and discussion of further therapy. 05/05/2022: Improvement of prior right chest wall pain with use of Medrol Dosepaks after each cycle of durvalumab. Stable dyspnea and cough. No other immunotherapy related toxicities other than pneumonitis. Restaging CT Chest reviewed--primary lesion similar size but more cavitary with surrounding ground glass opacities in prior radiation field. Will continue current durvalumab maintenance. Next f/u 3 months with contrast chest CT. End of therapy will be 08/2022 (sooner if unable to tolerate due to pneumonitis--tolerable with brief steroid course each cycle. 02/17/2022: Bert presents today to evaluate symptoms. He previously noted significant dyspnea and cough with his durvalumab, so he was given a Medrol Dosepakto start 1 day after durvalumab treatment. He states after this cycle, he noticed a significant improvement in his symptoms with initiation of the dosepakand denies any dyspnea at rest or around the house after treatment. He still hasdyspnea on exertion when he's more active, but this is mild now and more his baseline. He continues to deny other symptoms such as rash, abdominal pain or diarrhea. Labs are reviewed and remain stable. We will continue with durvalumab + medrol dosepak every 4 weeks, and will plan for follow-up in 3 months with . He will call sooner if his symptoms worsen or new symptoms develop. 01/21/2022: Bert presents for durvalumab immunotherapy today. He notes that with prior cycles he has had recurrent dyspnea and cough that is treated with steroids with some improvement about 1 week prior to his next cycle. He now notes that his shortness of breath is at baseline. He has otherwise not had anyother symptoms such as diarrhea, skin rash, or abdominal pain and his labs remained stable. 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 We discussed 1 more cycle durvalumab and I will give him a Medrol Dosepak to start 1 day after his durvalumab dose to see if we can preempt his inflammatory reaction. If he does not tolerate his durvalumab well we may consider stopping maintenance immunotherapy early. He is in agreement with thisplan. Next toxicity visit within 1 month. 12/23/2021: Bert presents today with his for follow-up for his lung cancer. He states he is feeling better finally today after the past 2 weeks with pneumonia. He finished his antibiotic yesterday. He is still short of breath, but this is somewhat improved. He continues with cough but denies chest pain, fever or chills. He is tolerating durvalumab well- no diarrhea, skin rash or abdominal pain. Labs reviewed and ok for treatment. We will have him get a chestXR prior to treatment today and will plan his re-staging CT scan for 2-3 weeks with follow-up after. He will continue monthly durvalumab unless he progresses, has a pneumonitis or other new symptoms of toxicity arise. 11/11/2021: Bert presents with his for follow-up. His severe right-sided chest pain and dyspnea has now completely resolved from last visit. He has not had any suggestive toxicities from durvalumab--no diarrhea, skin rashes, or recurrent dyspnea. He has returned to normal performance status and denies any fatigue. We reviewed his laboratories showing no immunotherapy related endocrine toxicities. Since he is now at normal baseline, I will give his 2-week dosing of durvalumab today then change to every 4-week dosing. His next follow-up with me will be in 6 weeks and he will have restaging CT chest in lateFebruary unless new symptoms arise. 10/14/2021: Bert was sent to ER 1 week ago (10/07/2021) after presenting with severe right-sided chest pain for about 1 week. He did not report worsening with inspiration but was worse with eating. Chest CT showed regression of priorright middle lobe tumor with internal necrosis and regression of prior adenopathy. There was an infiltrate posterior to his mass and no evidence of pulmonary embolism. He completed a course of azithromycin and notes that his chest pain is now completely resolved. He has no dyspnea with exertion or cough. Otherwise tolerated initial Durvalumab dose well--few loose stools the evening of his dose but no anny diarrhea, no skin rashes, and laboratories are stable. He also notes that Dr. Smith recommended starting N-acetylcysteine supplementation for his immunity, however I asked him to hold this for now sincehe has only recently started durvalumab and I will research whether this is indicated with his immunotherapy. --We will continue every 2-week durvalumab to see if he has any further toxicities, then follow-up in 1 month. If well-tolerated we will change to every 4-week dosing. 09/24/2021: Bert presents with his to discuss commencing immunotherapy after completing 6 weeks of concurrent chemoradiation (last dose chemo 09/10, last radiation 09/16). Fatigue improved but he has had 3 episodes of epistaxis over the past week (longest lasting about 6-7 minutes). Improved with saline nasal spray--offered ENT eval but he wants to observe. Mild dyspnea on exertionand cough. Today we discussed immunotherapy maintenance with Durvalumab over one year (initially every 2 weeks, then every 4 weeks if well tolerated). Goal of therapy is curative. --Today we reviewed immunotherapy (checkpoint inhibitor) counseling for Durvalumab. Common toxicities were reviewed to include infusion reactions and allergic reactions, fatigue, skin rashes, visual and ocular toxicities, diarrhea, abdominal pain from pancreatitis, and abnormal thyroid, adrenal, and pituitary function. Other toxicities may include pneumonitis, sexual side effects, neurologic, hepatic and renal toxicities. The patient signed informed consent and will follow-up as directed. I will see him C2D1 durvalumab for tox check. 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 He has tolerated his treatment exceptionally well and has had very few side effects/toxicities to therapy. He reports good appetite, stable weight.Essentially has no pain and has only required 4 doses of Zofran for breakthroughnausea. He has mild GERD-like symptoms, well controlled with Prilosec. Specifically denies any issues with headaches, fever/chills, cough, shortness ofbreath, bowel/bladder problems, peripheral neuropathy, skin rash or lower extremity edema. --He will complete radiotherapy on Tuesday, September 16, 2021 and his last cycle (#6) weekly Carbo/Taxol will be given today. 08/27/2021: Here for week for follow-up of weekly carboplatin paclitaxel. Fatigue mildly increased with decreased appetite and minimal dysphagia but does not need to take additional medicine other than Tylenol for this. Otherwise no cough, dyspnea, fever, chills and no significant peripheral neuropathy. He willfollow-up in 2 weeks for chemoradiation toxicity visit with our nurse practitioner. I will then see him in 4 weeks after completion of chemoradiation and will discuss whether he gets consolidation carboplatin paclitaxel after restaging scan or continue with maintenance immunotherapy alone. 08/12/2021: Started concurrent chemoradiation with weekly Carboplatin/Paclitaxelone week ago. Tolerating well without cough, dyspnea, chest pain, bowel or bladder symptoms, or neuropathy. Will continue to follow every 2 weeks while onchemoradiation--likely candidate for one year immunotherapy with Imfinzi if response. 07/17/2021: This is a 71 yo male accompanied by his for new diagnosis of right upper lobe mass, wrapping around right mainstem bronchus, with associated mediastinal adenopathy. He apparently had right upper lobe pneumonia in 2019, no imaging since that time. He is a former smoker, prior 40 year history, quit about 18 years ago. About 1-2 months ago he had persistent nonproductive cough without hemoptysis. Increased dyspnea, but his notes he has had chronic dyspnea over the past 4 years. Slow nonquantified weight loss, decreased appetite, hoarseness, and mild right chest discomfort. CT Chest imaging at [facility] on 06/23/2021 showed a large lobulated mass of the superior segment of the right upper lobe extending to the hilum. There appears to be invasion of the mass intothe right mainstem bronchus. The mass measures approximately 5.5 x 7.6 x 6.0 cm. There is a low density lesion in the liver that appears to be a cyst. 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 He does not have other significant comorbidities, prior malignancy, or known family history. We discussed that involvement of the right mainstem bronchus and mediastinum is consistent with likely Stage III lung cancer, but he needs a PET/CT to exclude liver metastases. If no distant metastatic disease on PET/CT, we will coordinate chemoradiation with weekly carboplatin/paclitaxel. I ordered PET/CT, radiation oncology consultation and reviewed informed consent for Carboplatin/Paclitaxel. I will see him the same day as Radiation Oncology consult to review PET/CT. He did sign informed consent today to expedite concurrent chemoradiation if no distant metastatic disease. We will also contact pathology to add PDL1 status--if metastatic disease, he may be a candidate for immunotherapy +/- chemotherapy. Today we reviewed chemotherapy counseling for weekly Carboplatin and Paclitaxel. Goal of therapy is curative if stage III. Common toxicities were reviewed to include infusion reactions/allergic reactions, myelosuppression, fatigue, nausea, vomiting, constipation, diarrhea, mouth sores, and alopecia. Other toxicities may include pneumonitis, neurologic, hepatic and renal toxicities. Risk of secondary malignancy due to effects of chemotherapy on bone marrow. Thepatient signed informed consent and will follow-up as directed. - Summary of Therapies Summary of Therapies: 08/06/2021: Commenced concurrent chemoradiation with Carboplatin AUC 2 IV Day 1 and Paclitaxel 45mg/m2 IV Day 1 weekly x 6 cycles. He was started on concurrent chemoradiotherapy treatment and received a dose of 6000 cGy to the right upper lobe mass and mediastinal nodes (bilateral) in 30 fractions from 08/06/2021 to 09/16/2021 over 41 elapsed days. Last cycle chemotherapy: 09/10/2021 - 09/30/2021: Cycle 1, Day 1 Durvalumab 10mg/kg IV every 2 weeks immunotherapy x 1 year. After 11/11/2021 2-week dose, changed to flat dose 1500 mg IV every 4-week dosing to complete 1 year of adjuvant immunotherapy. Last dose 09/01/2022. ROS Details: All systems reviewed & no additional complaints except as documented Subjective/ROS - Narrative: CONSTITUTIONAL: Stable mild fatigue (after chemoradiation completed), negative for fever or night sweats. Independent for ADLs and not requiring home oxygen. HEAD AND NECK: Negative for changes in hearing and vision. Negative for mouth ulcers, nasal congestion and nasal drainage. No recurrence of prior epistaxis. PULMONARY: Late September 2021 ER for worsening right chest wall pain--regressionof tumor with necrosis and small infiltrate noted on CT--prior cavitary lesion within area of consolidation of right lower lobe is now resolved. Recurrent dyspnea/cough intermittent and continues to improve. He continues maintenance 5mg prednisone prescribed by Dr. Ann. No hoarseness or significant dyspnea onexertion. CARDIOVASCULAR: Negative for claudication and irregular heartbeat/palpitations. No edema. GASTROINTESTINAL: Negative for abdominal pain, constipation, diarrhea, nausea, or vomiting. Improved appetite and improving dysphagia/resolved odynophagia as per HPI. GENITOURINARY: Negative for dysuria and hematuria. + h/o nephrolithiasis--no current symptoms. ENDOCRINE: Negative for cold intolerance and heat intolerance. CENTRAL NERVOUS SYSTEM: Negative for gait disturbance and headache. No history of stroke. PSYCHIATRIC: Negative for anxiety or depression. DERMATOLOGICAL: Negative for pruritus and rash. Negative for suspicious skin lesions. MUSCULOSKELETAL: Negative for back pain and bone/joint symptoms. HEMATOLOGICAL: Negative for bleeding and easy bruising. Negative for history of transfusion or thromboembolic disease ALLERGY: Negative for environmental allergies and food allergies. [facility] - History Attestation statement: The following information was validated with the patient. Source: Old Records Reviewed - Medical History Medical History: Medical History (Last Reviewed 02/03/23 @ 10:29 by Natacha Hess MD) Cough Hyperlipidemia Hypertensive heart disease Kidney stone Lung mass Shortness of breath - Surgical History Surgical History: Surgical History (Last Reviewed 02/03/23 @ 10:29 by Natacha Hess MD) History of carpal tunnel release History of neck surgery - Family History Family History: Family History (Last Reviewed 02/03/23 @ 10:29 by Natacha Hess MD) Father Heart disease Mother Diabetes Hypertension Sister Cancer - Social History Smoking Status: Former smoker Substance Use Type: None Home Medications & Allergies Allergies No Known Drug Allergies Allergy (Unknown, Verified 02/03/23 08:26) none Home Medications simvastatin 40 mg tablet (Zocor) 80 mg PO DAILY 02/26/18 [History Confirmed 02/03/23] aspirin 81 mg chewable tablet 81 mg PO DAILY ##0 02/27/18 [Rx Confirmed 02/03/23] hydrochlorothiazide 25 mg tablet 25 mg PO DAILY 30 days #30 tabs 02/27/18 [Rx Confirmed 02/03/23] carvedilol 3.125 mg tablet 3.125 mg PO Q12H 07/17/21 [History Confirmed 02/03/23] losartan 25 mg tablet 25 mg PO DAILY 07/17/21 [History Confirmed 02/03/23] docusate sodium 100 mg capsule (Colace) 200 mg PO QHS 01/21/22 [History Confirmed 02/03/23] prednisone 10 mg tablet 5 mg PO DAILY 11/04/22 [History Confirmed 02/03/23] Objective - Height/Weight Height/Weight: Height 5 ft 10 in Weight 126.5 kg BSA for Today's Weight 2.44 - Vital Signs Vital Signs: 02/03/23 08:26 Temperature 97.8 F Pulse Rate [Left Brachial] 68 Respiratory Rate 20 Blood Pressure [Right Arm] 127/84 02 Sat by Pulse Oximetry 97 - Pain Right Chest Pain Intensity: 2 - Distress Screening Distress Screen Results: RN Distress Screening Start: 07/17/21 11:07 Freq: Status: Complete Protocol: Document 09/01/21 09:44 DB (Rec: 09/01/21 09:45 DB [id number]) Distress Screening Distress Score: 2 Emotional Concerns Feeling uncertain about the future Distress Screening Total 2 Physical Exam Narrative: CONSTITUTIONAL: The patient is in no acute distress. HEAD / FACE: Normocephalic; atraumatic, no scleral icterus. EYES: Pupils are equal and reactive to light. Conjunctivae and lids are benign in appearance. Ocular movement intact. EARS: Hearing grossly intact. NOSE / MOUTH / THROAT: Nose, mouth, tongue and oropharynx are benign in appearance. No signs of inflammation. NECK / THYROID: Neck is supple. Thyroid is symmetrical, without thyromegaly, masses or palpable nodules. LYMPHATIC: No palpable cervical, supraclavicular, axillary, or inguinal adenopathy. RESPIRATORY: Normal to inspection. Lungs clear to auscultation bilaterally--prolonged expiratory phase similar to prior exams; no significant rhonchi, wheezes or rales. Nonlabored respirations CARDIOVASCULAR: Regular rate and rhythm. No murmurs, gallops, or rubs. VASCULAR: Carotid, radial, femoral and pedal pulses present bilaterally. No bruits. ABDOMEN: Bowel sounds normoactive. Soft, nontender and non-distended. No hepatosplenomegaly. No masses. INTEGUMENTARY: The skin is unremarkable. No rashes. No suspicious lesions MUSCULOSKELETAL: Normal musculature, no joint deformities or abnormalities, normal range of motion for all four extremities. EXTREMITIES: No edema, cyanosis or clubbing. NEUROLOGICAL: Alert and oriented. Cranial nerves intact. No gross motor or sensory deficits. Ambulates independently. PSYCHIATRIC: No anxiety or evidence of depression. - ECOG Performance Status ECOG Score: 1 Results - Labs Labs: Diagram of Most Recent CBC and CMP 02/01/23 08:56 02/01/23 08:56 Labs - Last 7 Days 02/01/23 08:56: ACTH 19.2 02/01/23 08:56: PHA Creatinine Clear 82.10, Sodium 140, Potassium 3.7, Chloride 103, Carbon Dioxide 28.5, Anion Gap 12.2, BUN 14, Creatinine 1.08, Est GFR (CKD-EPI) > 60.0, Glucose 132 H, Calcium 10.3, Total Bilirubin 0.4, AST 15, ALT 20, Alkaline Phosphatase 46, Lactate Dehydrogenase 162, Total Protein 7.2, Albumin 4.0, Globulin 3.2, Albumin/Globulin Ratio 1.3, Free T4 0.68, TSH 3rd Generation 1.88 02/01/23 08:56: Corrected WBC 6.4, Uncorrected WBC Count 6.4, RBC 4.31, Hgb 12.9L, Hct 37.9 L, MCV 88.0, MCH 29.9, MCHC 34.0, RDW 14.6, Plt Count 343, MPV 7.0, Neut % (Auto) 64.3, Lymph % (Auto) 14.0, [place] % (Auto) 19.8, Eos % (Auto) 1.4, Baso % (Auto) 0.5, Nucleat RBC Rel Count 0.1, Neut # (Auto) 4.1, Lymph # (Auto) 0.9 L, [place] # (Auto) 1.3 H, Eos # (Auto) 0.1, Baso # (Auto) 0.0 - Impressions CT chest w con 02/01/2023 8:51 AM SIGN AND SYMPTOMS: Lung cancer, restaging CONTRAST: 90 mL of intravenous Isovue-300 TECHNIQUE: Multidetector CT axial slices of the chest were obtained with IV contrast. Multiplanar reformats were performed and viewed on a separate workstation and reviewed to further define anatomy and possible pathology. CT was performed with one or more of the following dose reduction techniques: Automated exposure control, adjustment of the mA and/or kV according to patient size, or use of iterative reconstruction technique. COMPARISON: 11/01/2022. FINDINGS: Lower neck: Thyroid gland within normal limits, no supraclavicle adenopathy. Vessels: Atherosclerotic changes are present in the thoracic aorta and coronary arteries. There is no evidence of pulmonary embolism. Mediastinum and Pau: Calcified mediastinal and left hilar lymph nodes are notedsimilar to the prior exam. Similar airspace consolidation is noted emanating from the right hilum with soft tissue prominence throughout the right hilum similar to the prior exam. There is airspace opacities emanating from the left suprahilar region into the left upper lobe. Heart: Normal size. No pericardial effusion. Airways: There is narrowing of the right mainstem bronchus similar to the prior exam. Lungs: Airspace opacities are noted posteriorly in the right upper lobe emanating from the right hilum. There is a 3 mm calcified granuloma in the left upper lobe near the lingula similar to the prior exam. There is interstitial prominence bilaterally. Pleura: Within normal limits. Chest Wall: Within normal limits. Upper Abdomen: There are simple cysts in the right renal cortex requiring no further follow-up. There is a decompressed gallbladder with mild gallbladder wall thickening similar to the prior exam. There is a 13 mm hypoattenuating focus in the right hepatic lobe. This is unchanged. Bones: Degenerative changes are noted in the thoracic spine. There is anterior fusion in the lower cervical spine. Degenerative changes are also noted in the shoulders. CT/CT chest w con IMPRESSION: Similar suspected posttreatment changes are noted in the perihilar regions and right upper lobe without significant interval change from prior exam. No evidence of disease recurrence or new metastatic disease. There is a 13 mm hypoattenuating focus in the right hepatic lobe. This is unchanged. Impression dictated by: Carlos Cavanaugh M.D.02/01/2023 2:27 PM Assessment and Plan - TNM Staging Staging: Stage IIIB right upper lobe (overlapping sites involving right mainstem bronchus). No distant metastatic disease on PET/CT for staging. 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 No distant metastatic disease on PET/CT, therefore we coordinated chemoradiation with weekly carboplatin/paclitaxel. He commenced weekly Carboplatin/Paclitaxel with radiation on 08/06/2021 and today he will be receiving #6 Carboplatin/Paclitaxel and is scheduled to completed radiation therapy on 09/16/2021. 08/12/2021: No toxicities other than mild increase in creatinine. 08/27/2021: Grade 1 odynophagia with decreased appetite. Added sucralfate slurry 1 g every 6 hours as needed for remainder of chemoradiation. 09/10/2021: Grade 1 fatigue; otherwise no significant toxicities to chemotherapy; weight is stable; stable anemia. Normal electrolytes. Minimal nausea and no significant pain other than some acid reflux like symptoms; well controlled with Prilosec. --Patient completed Cycle 6 weekly Carboplatin/Paclitaxel therapy (09/10/2021) and radiotherapy to complete on 09/16/2021. ----- ----- 09/24/2021: Reviewed informed consent for Durvalumab maintenance therapy 10mg/kg IV every 2 weeks x 1 year (ok to change to monthly therapy if well tolerated). 10/14/2021: Patient was sent to ER for right chest wall pain on 10/07 following first durvalumab dose 09/30/2021. Noted to have regression of prior right middle lobe lesion and adenopathy with small adjacent infiltrate (this may be postradiation change but patient was placed on antibiotics). His pain has now completely resolved with no significant cough. Otherwise tolerating immunotherapy well. We will continue him on every 2-week dosing until receivingwhether he has recurrent chest discomfort or symptoms on durvalumab. Next follow-up with me in 4 weeks for toxicity check on immunotherapy. We will not repeat his chest CT since this was just performed in emergency department. 01/22/2022: Patient is here for 3-month follow-up on durvalumab maintenance therapy. He has had recurrent episodes of chest wall pain and dyspnea, previously treated with antibiotics and subsequent steroids. He notes that his symptoms tend to worsen for about 1 to 2 weeks following his immunotherapy, usually beginning 2 to 3 days after therapy. I will give him a brief course of Medrol Dosepak with each cycle and he will have reassessment with nurse practitioner for toxicity visit next week to see if this prevents his cough and dyspnea symptoms. We reviewed his restaging CT chest which shows reduction in size of his cavitary lesion in the right hilum from 6.5 to 5.2 cm in greatest diameter. There are evolving postradiation changes consistent with his pneumonitis and interval development of trace right-sided pleural effusion. Next follow-up with me will be in [address] chest at that time, although he may follow-up sooner after his [employer] visit if he is having persistent pneumonitis. 02/17/2022: He has done very well with the Medrol Dosepak after Durvalumab infusion, and denies chest pain, cough or dyspnea at rest- overall near resolution of symptoms. We will continue with this plan and he will follow-up with Dr. Hess in [address], labs. He has no questions today and isin agreement with this plan. 05/05/2022: No new symptoms--stable dyspnea/cough and improved right chest discomfort with Medrol dose pack after each cycle. Restaging CT with decreasingsoft tissue component within cavitary lesion. Some surrounding ground glass opacities consistent with known pneumonitis in prior radiation field. Followup [address] Chest. Continue Medrol dose pack after each cycle. 08/04/2022: Bert notes that since he saw Dr. Ann last month his breathing hasbeen relatively stable. He was placed on tapering doses of steroids which will be Repeated monthly until the end of immunotherapy. Yesterday he had a prolonged coughing episode that has resolved and he will continue on current dose of prednisone 30 mg daily until his next scheduled step down to [address] Ann did not note any benefit from inhaled bronchodilators or steroids but did recommend systemic steroids. The patient's most recent CT scanshowed resolution of his prior cavitary lesion and overall mild regression of consolidation in the right mid to lower lung joiner. Otherwise no new nodules. The patient will receive second to last dose of durvalumab today. Last dose 1 year of maintenance durvalumab will be 09/01/2022. I will schedule restaging CT chest and follow-up with me in 3 months for survivorship visit. Hemay return sooner if new symptoms arise. Mod complexity visit over 35 minutes to review restaging scans. 11/04/2022: Stable intermittent dyspnea and cough on low-dose prednisone 20 mg daily followed by Dr. Ann who sees him in mid November. No residual symptoms concerning for immunotherapy related toxicity other than pneumonitis noted below. CT scan shows stable postradiation changes of right upper lobe and bilateral perihilar areas. No areas concerning for metastatic disease. His last dose of durvalumab was 09/01/2022. Next follow-up with restaging CT chest with contrast and labs including CBC, CMP, TSH, and free T4 in January 2023 but hemay return sooner if new symptoms arise concerning for recurrence. Okay for himto see nurse practitioner and review survivorship plan at that time. Moderate complexity 35-minute follow-up. 02/03/2023: Cough and dyspnea are slowly improving since slow titration of prednisone, now 5 mg daily. Postradiation changes but no progression on chest CT. Continue every 3-month surveillance. Low complexity follow-up 25 minutes. (2) Drug-induced pneumonitis Recurrent pneumonitis as addressed above. Medrol Dosepak for 1 week following next durvalumab and reassessment with next practitioner to see if this alleviates his symptoms. 02/17/2022: see above. Near resolution of symptoms with addition of Medrol Dosepak. He is back to his baseline dyspnea on exertion only with increased activity 05/05/2022: Intermittent worsening of cough and dyspnea between cycles but much improved with medrol dose pack each cycle. 08/04/2022: I reviewed progress note from consultation with pulmonary medicine Dr. Ann who recommends recurrent courses of prednisone 40 mg daily for 7 days, 30 mg daily for 7 days, 20 mg daily for 7 days, then 10 mg daily for 7 days. This will be repeated once monthly until pneumonitis improved off immunotherapy within the next 2 months. He will have follow-up appointment with Dr. Ann next month. 11/04/2022: Patient does not feel that his cough and dyspnea is improved since end of durvalumab with last dose 09/01/2022, however he appears to be less symptomatic on exam today. He has maintained on prednisone 10 mg daily until follow-up with Dr. Ann next month. Imaging shows stable postradiation changes, likely exacerbated by prior immunotherapy. We will continue to follow with every 3-month scans. 02/03/2023: Cough and dyspnea are slowly improving since slow titration of prednisone, now 5 mg daily. Postradiation changes but no progression on chest CT. Continue follow-up with Dr. Ann as directed. (3) Encounter for coordination of complex care No distant metastatic disease on PET/CT for staging (bilateral mediastinal and subcarinal adenopathy noted). Concurrent chemoradiation commenced 08/06/2021--Carboplatin AUC 2 IV and Paclitaxel 45mg/m2 IV weekly x 6-7 weeks. Tolerated well. He completed Cycle 6 weekly Carboplatin/Paclitaxel therapy 09/10/2021 and radiotherapy complete on 09/16/2021. Cycle 1 day 1 09/30/2021 durvalumab 10mg/kg IV every 2 weeks immunotherapy as noted above. Changed to flat dose durvalumab 1500 milligrams IV every 4 weeks with 11/23/2021 dose. 08/04/2022: Continue durvalumab 1500mg IV every 4 weeks in addition to Medrol Dosepak day after each infusion given improvement of pneumonitis symptoms. End of 1 year of therapy 09/01/2022 02/03/2023: Follow-up of 3-month restaging scans and review of symptoms. Review images and reports over total 25-minute visit. - Chemo Plan Chemo Plan (Dose, Rate, Freq): Concurrent chemoradiation with Carboplatin AUC 2 IV Day 1 and Paclitaxel 45mg/m2IV Day 1 weekly x 6-7 weeks. Durvalumab 10mg/kg IV every 2 week immunotherapy x2 months then 1500mg IV q 4weeks to complete 1 year of therapy, last dose 09/01/22. Goal of Treatment: Curative - Time with Patient Time Spent with Patient (Follow Up Visit): 25 minutes - low complexity for exam and symptom review for immunotherapy related pneumonitis, 5 months from end of durvalumab therapy, restaging CT chest review. Coordination of Care & Counseling Time: Greater than 50% of time spent with patient was for coordination of care (as documented) and [id number] counseling of patient and/or family. Dictated By: Natacha Hess MD DD/ 1 Signed By: <Electronically signed by MD Natacha Hess> 02/03/[address] [place] [address] Work Phone: [phone] 784-470901-18-2023 Evaluation note* Encounter Date Diagnosis Assessment Notes Treatment Notes Treatment Clinical Notes Nov, Non-small cell cancer of right lung (ICD-10 - C34.91) Nov, Recurrent pneumonia (ICD-10 - J18.9) Nov, Pulmonary fibrosis (ICD-10 - J84.10) [employer] Other 12-22-2022 Progress note Author Natacha Hess [facility] November 04, 2022 9:55am Note Date/Time November 04, 2022 9:06am [facility] [place] [place] [address] Hem/Onc Follow Up Note - OP Signed Patient: Bert Yeung MR#: [id number] : 1950 Acct:[id number] Age/Sex: 71 / M Type: REG RCR Copies to: Howie Fulton MD~ Subjective Date/Time of Service: Date of Service: 11/04/2022 Time of Service: 09:05 Chief Complaint: Patient is here today for a 3 month follow up visit and go overlabs and CT scans HPI: 11/04/2022: Fer is here for 3-month follow-up and review of CT chest after completing last dose 09/01/2022 of 1 year adjuvant durvalumab after concurrent chemoradiation. His dyspnea and cough recur intermittently and he remains on low-dose prednisone 10 mg daily with follow-up planned with Dr. Ann in mid November. He has not had any further ER visits or evidence of infection. No nausea/vomiting, diarrhea, bone pain, and immunotherapy labs normal. We will recheck his thyroid function tests with CBC and CMP at his 3-month follow-up. We reviewed images and reports of CT scans of chest from April, July, and most recent 11/01/2022 restaging scans. He has stable soft tissue prominence inthe right hilum and to a lesser extent the left hilum. Airspace opacities in the right perihilar distribution of the right upper lobe with a lesser extent inthe left perihilar region is unchanged compared to prior exam. Stable 13 mm focus of hypoattenuation in right hepatic lobe favoring cyst. 1.6 cm stone in the left renal pelvis. No obvious bony metastatic lesions. The patient denies any back pain or dysuria/hematuria. We will plan to follow-up exam, labs, and imaging in 3 months. He may return sooner if signs or symptoms of recurrence. Moderate complexity 35-minute follow-up visit for review of symptoms, labs, and images after completing 1 year of durvalumab maintenance therapy. 08/04/2022: Bert is here for follow-up on durvalumab maintenance therapy. He has 2 more doses 1 today and 1 in 4 weeks then will complete his 1 year maintenance therapy. He was seen by Dr. Ann of pulmonary medicine who has prescribed serial prednisone tapers for pneumonitis (40 mg x 1 week, 30 mg x 1 week, 20 mg x 1 week, 10 mg x 1 week and repeat each month). His dyspnea and cough has somewhat stabilized since the steroid courses, although he had a coughing fit yesterday that lasted about 3 hours. He did not seek any furtherevaluation in the emergency room and this has now resolved. He is currently on 30 mg daily of his prednisone without any significant cough or dyspnea greater than baseline. Otherwise no immunotherapy related toxicities such as rash or diarrhea. We reviewed his restaging CT chest from 08/02/2022 that shows persistent consolidative changes in the right upper lobe with loculated pleural effusion that is unchanged. Prior cavitary component has essentially resolved since prior study with stable scarring in the left hilar region. No new pulmonary nodules are noted. Labs show mild leukocytosis related to his steroids but otherwise stable hemoglobin and normal platelet count. Renal and hepatic function normal and no abnormalities of thyroid or adrenal function. Rachelwill continue 2 further cycles of therapy with durvalumab then stop. Follow-up in 3 months with contrast chest CT. He may return sooner as needed. Moderate complexity 35-minute follow-up visit for review of images and reports of CT and discussion of further therapy. 05/05/2022: Improvement of prior right chest wall pain with use of Medrol Dosepaks after each cycle of durvalumab. Stable dyspnea and cough. No other immunotherapy related toxicities other than pneumonitis. Restaging CT Chest reviewed--primary lesion similar size but more cavitary with surrounding ground glass opacities in prior radiation field. Will continue current durvalumab maintenance. Next f/u 3 months with contrast chest CT. End of therapy will be 08/2022 (sooner if unable to tolerate due to pneumonitis--tolerable with brief steroid course each cycle. 02/17/2022: Bert presents today to evaluate symptoms. He previously noted significant dyspnea and cough with his durvalumab, so he was given a Medrol Dosepak to start 1 day after durvalumab treatment. He states after this cycle, he noticed a significant improvement in his symptoms with initiation of the dosepak and denies any dyspnea at rest or around the house after treatment. He still has dyspnea on exertion when he's more active, but this is mild now and more his baseline. He continues to deny other symptoms such as rash, abdominal pain or diarrhea. Labs are reviewed and remain stable. We will continue with durvalumab + medrol dosepak every 4 weeks, and will plan for follow-up in [address] Hess. He will call sooner if his symptoms worsen or new symptoms develop. 01/21/2022: Bert presents for durvalumab immunotherapy today. He notes that with prior cycles he has had recurrent dyspnea and cough that is treated with steroids with some improvement about 1 week prior to his next cycle. He now notes that his shortness of breath is at baseline. He has otherwise not had anyother symptoms such as diarrhea, skin rash, or abdominal pain and his labs remained stable. 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 We discussed 1 more cycle durvalumab and I will give him a Medrol Dosepak to start 1 day after his durvalumab dose to see if we can preempt his inflammatory reaction. If he does not tolerate his durvalumab well we may consider stopping maintenance immunotherapy early. He is in agreement with thisplan. Next toxicity visit within 1 month. 12/23/2021: Bert presents today with his for follow-up for his lung cancer. He states he is feeling better finally today after the past 2 weeks with pneumonia. He finished his antibiotic yesterday. He is still short of breath, but this is somewhat improved. He continues with cough but denies chest pain, fever or chills. He is tolerating durvalumab well- no diarrhea, skin rash or abdominal pain. Labs reviewed and ok for treatment. We will have him get a chestXR prior to treatment today and will plan his re-staging CT scan for 2-3 weeks with follow-up after. He will continue monthly durvalumab unless he progresses, has a pneumonitis or other new symptoms of toxicity arise. 11/11/2021: Bert presents with his for follow-up. His severe right-sided chest pain and dyspnea has now completely resolved from last visit. He has not had any suggestive toxicities from durvalumab--no diarrhea, skin rashes, or recurrent dyspnea. He has returned to normal performance status and denies any fatigue. We reviewed his laboratories showing no immunotherapy related endocrine toxicities. Since he is now at normal baseline, I will give his 2-week dosing of durvalumab today then change to every 4-week dosing. His next follow-up with me will be in 6 weeks and he will have restaging CT chest in lateFebruary unless new symptoms arise. 10/14/2021: Bert was sent to ER 1 week ago (10/07/2021) after presenting with severe right-sided chest pain for about 1 week. He did not report worsening with inspiration but was worse with eating. Chest CT showed regression of priorright middle lobe tumor with internal necrosis and regression of prior adenopathy. There was an infiltrate posterior to his mass and no evidence of pulmonary embolism. He completed a course of azithromycin and notes that his chest pain is now completely resolved. He has no dyspnea with exertion or cough. Otherwise tolerated initial Durvalumab dose well--few loose stools the evening of his dose but no anny diarrhea, no skin rashes, and laboratories are stable. He also notes that Dr. Smith recommended starting N-acetylcysteine supplementation for his immunity, however I asked him to hold this for now sincehe has only recently started durvalumab and I will research whether this is indicated with his immunotherapy. --We will continue every 2-week durvalumab to see if he has any further toxicities, then follow-up in 1 month. If well-tolerated we will change to every 4-week dosing. 09/24/2021: Bert presents with his to discuss commencing immunotherapy after completing 6 weeks of concurrent chemoradiation (last dose chemo 09/10, last radiation 09/16). Fatigue improved but he has had 3 episodes of epistaxis over the past week (longest lasting about 6-7 minutes). Improved with saline nasal spray--offered ENT eval but he wants to observe. Mild dyspnea on exertionand cough. Today we discussed immunotherapy maintenance with Durvalumab over one year (initially every 2 weeks, then every 4 weeks if well tolerated). Goal of therapy is curative. --Today we reviewed immunotherapy (checkpoint inhibitor) counseling for Durvalumab. Common toxicities were reviewed to include infusion reactions and allergic reactions, fatigue, skin rashes, visual and ocular toxicities, diarrhea, abdominal pain from pancreatitis, and abnormal thyroid, adrenal, and pituitary function. Other toxicities may include pneumonitis, sexual side effects, neurologic, hepatic and renal toxicities. The patient signed informed consent and will follow-up as directed. I will see him C2D1 durvalumab for tox check. 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 He has tolerated his treatment exceptionally well and has had very few side effects/toxicities to therapy. He reports good appetite, stable weight.Essentially has no pain and has only required 4 doses of Zofran for breakthroughnausea. He has mild GERD-like symptoms, well controlled with Prilosec. Specifically denies any issues with headaches, fever/chills, cough, shortness ofbreath, bowel/bladder problems, peripheral neuropathy, skin rash or lower extremity edema. --He will complete radiotherapy on Tuesday, September 16, 2021 and his last cycle (#6) weekly Carbo/Taxol will be given today. 08/27/2021: Here for week for follow-up of weekly carboplatin paclitaxel. Fatigue mildly increased with decreased appetite and minimal dysphagia but does not need to take additional medicine other than Tylenol for this. Otherwise no cough, dyspnea, fever, chills and no significant peripheral neuropathy. He willfollow-up in 2 weeks for chemoradiation toxicity visit with our nurse practitioner. I will then see him in 4 weeks after completion of chemoradiationand will discuss whether he gets consolidation carboplatin paclitaxel after restaging scan or continue with maintenance immunotherapy alone. 08/12/2021: Started concurrent chemoradiation with weekly Carboplatin/Paclitaxelone week ago. Tolerating well without cough, dyspnea, chest pain, bowel or bladder symptoms, or neuropathy. Will continue to follow every 2 weeks while onchemoradiation--likely candidate for one year immunotherapy with Imfinzi if response. 07/17/2021: This is a 71 yo male accompanied by his for new diagnosis of right upper lobe mass, wrapping around right mainstem bronchus, with associated mediastinal adenopathy. He apparently had right upper lobe pneumonia in 2019, no imaging since that time. He is a former smoker, prior 40 year history, quit about 18 years ago. About 1-2 months ago he had persistent nonproductive cough without hemoptysis. Increased dyspnea, but his notes he has had chronic dyspnea over the past 4 years. Slow nonquantified weight loss, decreased appetite, hoarseness, and mild right chest discomfort. CT Chest imaging at [facility] on 06/23/2021 showed a large lobulated mass of the superior segment of the right upper lobe extending to the hilum. There appears to be invasion of themass into the right mainstem bronchus. The mass measures approximately 5.5 x 7.6x 6.0 cm. There is a low density lesion in the liver that appears to be a cyst. 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 He does not have other significant comorbidities, prior malignancy, or known family history. We discussed that involvement of the right mainstem bronchus and mediastinum is consistent with likely Stage III lung cancer, but he needs a PET/CT to exclude liver metastases. If no distant metastatic disease on PET/CT, we will coordinate chemoradiation with weekly carboplatin/paclitaxel. I ordered PET/CT, radiation oncology consultation and reviewed informed consent for Carboplatin/Paclitaxel. I will see him the same day as Radiation Oncology consult to review PET/CT. He did sign informed consent today to expedite concurrent chemoradiation if no distant metastatic disease. We will also contact pathology to add PDL1 status--if metastatic disease, he may be a candidate for immunotherapy +/- chemotherapy. Today we reviewed chemotherapy counseling for weekly Carboplatin and Paclitaxel. Goal of therapy is curative if stage III. Common toxicities were reviewed to include infusion reactions/allergic reactions, myelosuppression, fatigue, nausea, vomiting, constipation, diarrhea, mouth sores, and alopecia. Other toxicities may include pneumonitis, neurologic, hepatic and renal toxicities. Risk of secondary malignancy due to effects of chemotherapy on bone marrow. Thepatient signed informed consent and will follow-up as directed. - Summary of Therapies Summary of Therapies: 08/06/2021: Commenced concurrent chemoradiation with Carboplatin AUC 2 IV Day 1 and Paclitaxel 45mg/m2 IV Day 1 weekly x 6 cycles. He was started on concurrent chemoradiotherapy treatment and received a dose of 6000 cGy to the right upper lobe mass and mediastinal nodes (bilateral) in 30 fractions from 08/06/2021 to 09/16/2021 over 41 elapsed days. Last cycle chemotherapy: 09/10/2021 - 09/30/2021: Cycle 1, Day 1 Durvalumab 10mg/kg IV every 2 weeks immunotherapy x 1 year. After 11/11/2021 2-week dose, changed to flat dose 1500 mg IV every 4-week dosing to complete 1 year of adjuvant immunotherapy. Last dose 09/01/2022. ROS Details: All systems reviewed & no additional complaints except as documented Subjective/ROS - Narrative: CONSTITUTIONAL: Stable mild fatigue (after chemoradiation completed), negative for fever or night sweats. Independent for ADLs and not requiring home oxygen. HEAD AND NECK: Negative for changes in hearing and vision. Negative for mouth ulcers, nasal congestion and nasal drainage. No recurrence of prior epistaxis. PULMONARY: Late September 2021 ER for worsening right chest wall pain--regressionof tumor with necrosis and small infiltrate noted on CT--prior cavitary lesion within area of consolidation of right lower lobe is now resolved. Recurrent dyspnea/cough intermittent and appears improved from last exam. He continues maintenance 10 mg prednisone prescribed by Dr. Ann. No hoarseness or significant dyspnea on exertion. CARDIOVASCULAR: Negative for claudication and irregular heartbeat/palpitations. No edema. GASTROINTESTINAL: Negative for abdominal pain, constipation, diarrhea, nausea, or vomiting. Improved appetite and improving dysphagia/resolved odynophagia as per HPI. GENITOURINARY: Negative for dysuria and hematuria. + h/o nephrolithiasis--no current symptoms. ENDOCRINE: Negative for cold intolerance and heat intolerance. CENTRAL NERVOUS SYSTEM: Negative for gait disturbance and headache. No history of stroke. PSYCHIATRIC: Negative for anxiety or depression. DERMATOLOGICAL: Negative for pruritus and rash. Negative for suspicious skin lesions. MUSCULOSKELETAL: Negative for back pain and bone/joint symptoms. HEMATOLOGICAL: Negative for bleeding and easy bruising. Negative for history of transfusion or thromboembolic disease ALLERGY: Negative for environmental allergies and food allergies. [facility] - History Attestation statement: The following information was validated with the patient. Source: Old Records Reviewed - Medical History Medical History: Medical History (Last Reviewed 11/04/22 @ 09:48 by Natacha Hess MD) Cough Hyperlipidemia Hypertensive heart disease Kidney stone Lung mass Shortness of breath - Surgical History Surgical History: Surgical History (Last Reviewed 11/04/22 @ 09:48 by Natacha Hess MD) History of carpal tunnel release History of neck surgery - Family History Family History: Family History (Last Reviewed 11/04/22 @ 09:48 by Natacha Hess MD) Father Heart disease Mother Diabetes Hypertension Sister Cancer - Social History Smoking Status: Former smoker Substance Use Type: None Home Medications & Allergies Allergies No Known Drug Allergies Allergy (Unknown, Verified 11/04/22 08:57) none Home Medications simvastatin 40 mg tablet (Zocor) 80 mg PO DAILY 02/26/18 [History Confirmed 11/04/22] aspirin 81 mg chewable tablet 81 mg PO DAILY ##0 02/27/18 [Rx Confirmed 11/04/22] hydrochlorothiazide 25 mg tablet 25 mg PO DAILY 30 days #30 tabs 02/27/18 [Rx Confirmed 11/04/22] carvedilol 3.125 mg tablet 3.125 mg PO Q12H 07/17/21 [History Confirmed 11/04/22] losartan 25 mg tablet 25 mg PO DAILY 07/17/21 [History Confirmed 11/04/22] docusate sodium 100 mg capsule (Colace) 200 mg PO QHS 01/21/22 [History Confirmed 11/04/22] prednisone 10 mg tablet 10 mg PO DAILY 11/04/22 [History Confirmed 11/04/22] Objective - Height/Weight Height/Weight: Height 5 ft 10 in Weight 118.5 kg BSA for Today's Weight 2.44 - Vital Signs Vital Signs: 11/04/22 08:58 Temperature 97.8 F Pulse Rate [Left Brachial] 88 Respiratory Rate 16 Blood Pressure [Right Arm] 142/83 H 02 Sat by Pulse Oximetry 98 Oxygen Delivery Method Room Air - Pain Right Chest Pain Intensity: 2 - Distress Screening Distress Screen Results: RN Distress Screening Start: 07/17/21 11:07 Freq: Status: Complete Protocol: Document 09/01/21 09:44 DB (Rec: 09/01/21 09:45 DB [id number]) Distress Screening Distress Score: 2 Emotional Concerns Feeling uncertain about the future Distress Screening Total 2 Physical Exam Narrative: CONSTITUTIONAL: The patient is in no acute distress. HEAD / FACE: Normocephalic; atraumatic, no scleral icterus. EYES: Pupils are equal and reactive to light. Conjunctivae and lids are benign in appearance. Ocular movement intact. EARS: Hearing grossly intact. NOSE / MOUTH / THROAT: Nose, mouth, tongue and oropharynx are benign in appearance. No signs of inflammation. NECK / THYROID: Neck is supple. Thyroid is symmetrical, without thyromegaly, masses or palpable nodules. LYMPHATIC: No palpable cervical, supraclavicular, axillary, or inguinal adenopathy. RESPIRATORY: Normal to inspection. Lungs clear to auscultation bilaterally--prolonged expiratory phase similar to prior exams; no significant rhonchi, wheezes or rales. Nonlabored respirations CARDIOVASCULAR: Regular rate and rhythm. No murmurs, gallops, or rubs. VASCULAR: Carotid, radial, femoral and pedal pulses present bilaterally. No bruits. ABDOMEN: Bowel sounds normoactive. Soft, nontender and non-distended. No hepatosplenomegaly. No masses. INTEGUMENTARY: The skin is unremarkable. No rashes. No suspicious lesions MUSCULOSKELETAL: Normal musculature, no joint deformities or abnormalities, normal range of motion for all four extremities. EXTREMITIES: No edema, cyanosis or clubbing. NEUROLOGICAL: Alert and oriented. Cranial nerves intact. No gross motor or sensory deficits. Ambulates independently. PSYCHIATRIC: No anxiety or evidence of depression. - ECOG Performance Status ECOG Score: 1 Results - Labs Labs: Diagram of Most Recent CBC and CMP 11/01/22 10:00 11/01/22 10:00 Labs - Last 7 Days 11/01/22 10:00: PHA Creatinine Clear 81.14, Sodium 135 L, Potassium 3.7, Chloride 101, Carbon Dioxide 24.9, Anion Gap 12.8, BUN 13, Creatinine 1.12, Est GFR ( Amer) > 60, Est GFR (Non-Af Amer) > 60, Glucose 129 H, Calcium 9.7,Total Bilirubin 0.7, AST 21, ALT 24, Alkaline Phosphatase 45, Total Protein 7.4,Albumin 3.4, Globulin 4.0, Albumin/Globulin Ratio 0.9 11/01/22 10:00: Corrected WBC 14.9 H, Uncorrected WBC Count 14.9 H, RBC 4.69, Hgb 13.3, Hct 39.9, MCV 85.1, MCH 28.3, MCHC 33.3, RDW 15.5 H, Plt Count 492 H, MPV 7.2, Neut % (Auto) 76.7, Lymph % (Auto) 9.5, [place] % (Auto) 12.2, Eos % (Auto) 1.4, Baso % (Auto) 0.2, Nucleat RBC Rel Count 0.1, Neut # (Auto) 11.4 H, Lymph # (Auto) 1.4, [place] # (Auto) 1.8 H, Eos # (Auto) 0.2, Baso # (Auto) 0.0, Platelet Estimate Increased, Large Platelets Slight, Plt Morphology Comment N/A,RBC Morphology Normal - Impressions CT chest w con 11/01/2022 9:47 AM SIGN AND SYMPTOMS: Lung cancer restaging, recently finished immunotherapy in August 2022 CONTRAST: 90 mL of intravenous Isovue-300 TECHNIQUE: Multidetector CT axial slices of the chest were obtained with IV contrast. Multiplanar reformats were performed and viewed on a separate workstation and reviewed to further define anatomy and possible pathology. CT was performed with one or more of the following dose reduction techniques: Automated exposure control, adjustment of the mA and/or kV according to patient size, or use of iterative reconstruction technique. COMPARISON: None. FINDINGS: Lower neck: Thyroid gland within normal limits, no supraclavicle adenopathy. Vessels: Atherosclerotic changes are noted in the thoracic aorta and origins of the great vessels. Atherosclerotic changes are noted in the coronary arteries. There is no evidence of pulmonary embolism. Mediastinum and Pau: Calcified subcarinal lymph nodes are present. There is soft tissue prominence in the right hilum and to a lesser extent the left hilum. Heart: Normal size. No pericardial effusion. Airways: Within normal limits Lungs: Airspace opacities are redemonstrated in a right perihilar distribution right upper lobe. This is also seen to a lesser extent the left perihilar regionbut is unchanged when compared to the prior exam. Pleura: There is a small right-sided pleural effusion. Chest Wall: Within normal limits. Upper Abdomen: There is a 13 mm focus of hypoattenuation in the right hepatic lobe. There is a 1.6 cm stone in the left renal pelvis. Bones: Anterior fusion hardware is noted in the lower cervical spine. Degenerative changes are noted in the thoracic spine. Degenerative changes are noted in the shoulders. CT/CT chest w con IMPRESSION: Similar perihilar airspace opacities right greater than left. There is a similar small right-sided pleural effusion. Soft tissue fullness is noted in the pau right greater than left. Calcified subcarinal lymph nodes are redemonstrated. Impression dictated by: Carlos Cavanaugh M.D.11/01/2022 3:54 PM Assessment and Plan - TNM Staging Staging: Stage IIIB right upper lobe (overlapping sites involving right mainstem bronchus). No distant metastatic disease on PET/CT for staging. 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 No distant metastatic disease on PET/CT, therefore we coordinated chemoradiation with weekly carboplatin/paclitaxel. He commenced weekly Carboplatin/Paclitaxel with radiation on 08/06/2021 and today he will be receiving #6 Carboplatin/Paclitaxel and is scheduled to completed radiation therapy on 09/16/2021. 08/12/2021: No toxicities other than mild increase in creatinine. 08/27/2021: Grade 1 odynophagia with decreased appetite. Added sucralfate slurry 1 g every 6 hours as needed for remainder of chemoradiation. 09/10/2021: Grade 1 fatigue; otherwise no significant toxicities to chemotherapy; weight is stable; stable anemia. Normal electrolytes. Minimal nausea and no significant pain other than some acid reflux like symptoms; well controlled with Prilosec. --Patient completed Cycle 6 weekly Carboplatin/Paclitaxel therapy (09/10/2021) and radiotherapy to complete on 09/16/2021. ----- -- 09/24/2021: Reviewed informed consent for Durvalumab maintenance therapy 10mg/kg IV every 2 weeks x 1 year (ok to change to monthly therapy if well tolerated). 10/14/2021: Patient was sent to ER for right chest wall pain on 10/07 following first durvalumab dose 09/30/2021. Noted to have regression of prior right middle lobe lesion and adenopathy with small adjacent infiltrate (this may be postradiation change but patient was placed on antibiotics). His pain has now completely resolved with no significant cough. Otherwise tolerating immunotherapy well. We will continue him on every 2-week dosing until receivingwhether he has recurrent chest discomfort or symptoms on durvalumab. Next follow-up with me in 4 weeks for toxicity check on immunotherapy. We will not repeat his chest CT since this was just performed in emergency department. 01/22/2022: Patient is here for 3-month follow-up on durvalumab maintenance therapy. He has had recurrent episodes of chest wall pain and dyspnea, previously treated with antibiotics and subsequent steroids. He notes that his symptoms tend to worsen for about 1 to 2 weeks following his immunotherapy, usually beginning 2 to 3 days after therapy. I will give him a brief course of Medrol Dosepak with each cycle and he will have reassessment with nurse practitioner for toxicity visit next week to see if this prevents his cough and dyspnea symptoms. We reviewed his restaging CT chest which shows reduction in size of his cavitary lesion in the right hilum from 6.5 to 5.2 cm in greatest diameter. There are evolving postradiation changes consistent with his pneumonitis and interval development of trace right-sided pleural effusion. Next follow-up with me will be in [address] chest at that time, although he may follow-up sooner after his [employer] visit if he is having persistent pneumonitis. 02/17/2022: He has done very well with the Medrol Dosepak after Durvalumab infusion, and denies chest pain, cough or dyspnea at rest- overall near resolution of symptoms. We will continue with this plan and he will follow-up with Dr. Hess in [address], labs. He has no questions today and isin agreement with this plan. 05/05/2022: No new symptoms--stable dyspnea/cough and improved right chest discomfort with Medrol dose pack after each cycle. Restaging CT with decreasingsoft tissue component within cavitary lesion. Some surrounding ground glass opacities consistent with known pneumonitis in prior radiation field. Followup [address] Chest. Continue Medrol dose pack after each cycle. 08/04/2022: Bert notes that since he saw Dr. Ann last month his breathing hasbeen relatively stable. He was placed on tapering doses of steroids which will be Repeated monthly until the end of immunotherapy. Yesterday he had a prolonged coughing episode that has resolved and he will continue on current dose of prednisone 30 mg daily until his next scheduled step down to [address] Ann did not note any benefit from inhaled bronchodilators or steroids but did recommend systemic steroids. The patient's most recent CT scanshowed resolution of his prior cavitary lesion and overall mild regression of consolidation in the right mid to lower lung joiner. Otherwise no new nodules. The patient will receive second to last dose of durvalumab today. Last dose 1 year of maintenance durvalumab will be 09/01/2022. I will schedule restaging CT chest and follow-up with me in 3 months for survivorship visit. Hemay return sooner if new symptoms arise. Mod complexity visit over 35 minutes to review restaging scans. 11/04/2022: Stable intermittent dyspnea and cough on low-dose prednisone 20 mg daily followed by Dr. Ann who sees him in mid November. No residual symptoms concerning for immunotherapy related toxicity other than pneumonitis noted below. CT scan shows stable postradiation changes of right upper lobe and bilateral perihilar areas. No areas concerning for metastatic disease. His last dose of durvalumab was 09/01/2022. Next follow-up with restaging CT chest with contrast and labs including CBC, CMP, TSH, and free T4 in January 2023 but hemay return sooner if new symptoms arise concerning for recurrence. Okay for himto see nurse practitioner and review survivorship plan at that time. Moderate complexity 35-minute follow-up. (2) Drug-induced pneumonitis Recurrent pneumonitis as addressed above. Medrol Dosepak for 1 week following next durvalumab and reassessment with next practitioner to see if this alleviates his symptoms. 02/17/2022: see above. Near resolution of symptoms with addition of Medrol Dosepak. He is back to his baseline dyspnea on exertion only with increased activity 05/05/2022: Intermittent worsening of cough and dyspnea between cycles but much improved with medrol dose pack each cycle. 08/04/2022: I reviewed progress note from consultation with pulmonary medicine Dr. Ann who recommends recurrent courses of prednisone 40 mg daily for 7 days, 30 mg daily for 7 days, 20 mg daily for 7 days, then 10 mg daily for 7 days. This will be repeated once monthly until pneumonitis improved off immunotherapy within the next 2 months. He will have follow-up appointment withDr. Ann next month. 11/04/2022: Patient does not feel that his cough and dyspnea is improved since end of durvalumab with last dose 09/01/2022, however he appears to be less symptomatic on exam today. He has maintained on prednisone 10 mg daily until follow-up with Dr. Ann next month. Imaging shows stable postradiation changes, likely exacerbated by prior immunotherapy. We will continue to follow with every 3-month scans. (3) Encounter for coordination of complex care No distant metastatic disease on PET/CT for staging (bilateral mediastinal and subcarinal adenopathy noted). Concurrent chemoradiation commenced 08/06/2021--Carboplatin AUC 2 IV and Paclitaxel 45mg/m2 IV weekly x 6-7 weeks. Tolerated well. He completed Cycle 6 weekly Carboplatin/Paclitaxel therapy 09/10/2021 and radiotherapy complete on 09/16/2021. Cycle 1 day 1 09/30/2021 durvalumab 10mg/kg IV every 2 weeks immunotherapy as noted above. Changed to flat dose durvalumab 1500 milligrams IV every 4 weeks with 11/23/2021 dose. 08/04/2022: Continue durvalumab 1500mg IV every 4 weeks in addition to Medrol Dosepak day after each infusion given improvement of pneumonitis symptoms. End of 1 year of therapy 09/01/202211/04: Follow-up of 3-month restaging scans and review of symptoms. Review images and reports over total 35-minute visit. - Chemo Plan Chemo Plan (Dose, Rate, Freq): Concurrent chemoradiation with Carboplatin AUC 2 IV Day 1 and Paclitaxel 45mg/m2IV Day 1 weekly x 6-7 weeks. Durvalumab 10mg/kg IV every 2 week immunotherapy x2 months then 1500mg IV q 4weeks to complete 1 year of therapy, last dose 09/01/22. Goal of Treatment: Curative - Time with Patient Time Spent with Patient (Follow Up Visit): 35 minutes - moderate complexity for exam and symptom review for immunotherapy related pneumonitis, end of durvalumabtherapy, restaging CT chest review. Coordination of Care & Counseling Time: Greater than 50% of time spent with patient was for coordination of care (as documented) and [id number] counseling of patient and/or family. Dictated By: Natacha Hess MD DD/ Signed By: <Electronically signed by MD Natacha Hess> 11/04/22 [address] Work Phone: [phone] 312-952510-11-2022 Evaluation note* Encounter Date Diagnosis Assessment Notes Treatment Notes Treatment Clinical Notes Aug, Recurrent pneumonia (ICD-10 - J18.9) Aug, Pulmonary fibrosis (ICD-10 - J84.10) Aug, Non-small cell cancer of right lung (ICD-10 - C34.91) [employer] Other 09-21-2022 Progress note Author Natacha Hess [facility] August 04, 2022 2:30pm Note Date/Time August 04, 2022 10:58[facility] [address] [address] Hem/Onc Follow Up Note - OP Signed Patient: Bert Yeung MR#: [id number] : 1950 Acct:[id number] Age/Sex: 71 / M Type: REG RCR Copies to: Howie Fulton MD~ Subjective Date/Time of Service: Date of Service: 08/04/2022 Time of Service: 10:57 Chief Complaint: Patient is here today for a 3 month follow up visit and go overlabs and CT scan of chest. HPI: 08/04/2022: Bert is here for follow-up on durvalumab maintenance therapy. He has 2 more doses 1 today and 1 in 4 weeks then will complete his 1 year maintenance therapy. He was seen by Dr. Ann of pulmonary medicine who has prescribed serial prednisone tapers for pneumonitis (40 mg x 1 week, 30 mg x 1 week, 20 mg x 1 week, 10 mg x 1 week and repeat each month). His dyspnea and cough has somewhat stabilized since the steroid courses, although he had a coughing fit yesterday that lasted about 3 hours. He did not seek any furtherevaluation in the emergency room and this has now resolved. He is currently on 30 mg daily of his prednisone without any significant cough or dyspnea greater than baseline. Otherwise no immunotherapy related toxicities such as rash or diarrhea. We reviewed his restaging CT chest from 08/02/2022 that shows persistent consolidative changes in the right upper lobe with loculated pleural effusion that is unchanged. Prior cavitary component has essentially resolved since prior study with stable scarring in the left hilar region. No new pulmonary nodules are noted. Labs show mild leukocytosis related to his steroids but otherwise stable hemoglobin and normal platelet count. Renal and hepatic function normal and no abnormalities of thyroid or adrenal function. Hewill continue 2 further cycles of therapy with durvalumab then stop. Follow-up in 3 months with contrast chest CT. He may return sooner as needed. Moderate complexity 35-minute follow-up visit for review of images and reports of CT and discussion of further therapy. 05/05/2022: Improvement of prior right chest wall pain with use of Medrol Dosepaks after each cycle of durvalumab. Stable dyspnea and cough. No other immunotherapy related toxicities other than pneumonitis. Restaging CT Chest reviewed--primary lesion similar size but more cavitary with surrounding ground glass opacities in prior radiation field. Will continue current durvalumab maintenance. Next f/u 3 months with contrast chest CT. End of therapy will be 08/2022 (sooner if unable to tolerate due to pneumonitis--tolerable with brief steroid course each cycle. 02/17/2022: Bert presents today to evaluate symptoms. He previously noted significant dyspnea and cough with his durvalumab, so he was given a Medrol Dosepak to start 1 day after durvalumab treatment. He states after this cycle, he noticed a significant improvement in his symptoms with initiation of the dosepak and denies any dyspnea at rest or around the house after treatment. He still has dyspnea on exertion when he's more active, but this is mild now and more his baseline. He continues to deny other symptoms such as rash, abdominal pain or diarrhea. Labs are reviewed and remain stable. We will continue with durvalumab + medrol dosepak every 4 weeks, and will plan for follow-up in [address] Hess. He will call sooner if his symptoms worsen or new symptoms develop. 01/21/2022: Bert presents for durvalumab immunotherapy today. He notes that with prior cycles he has had recurrent dyspnea and cough that is treated with steroids with some improvement about 1 week prior to his next cycle. He now notes that his shortness of breath is at baseline. He has otherwise not had anyother symptoms such as diarrhea, skin rash, or abdominal pain and his labs remained stable. 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 We discussed 1 more cycle durvalumab and I will give him a Medrol Dosepak to start 1 day after his durvalumab dose to see if we can preempt his inflammatory reaction. If he does not tolerate his durvalumab well we may consider stopping maintenance immunotherapy early. He is in agreement with thisplan. Next toxicity visit within 1 month. 12/23/2021: Bert presents today with his for follow-up for his lung cancer. He states he is feeling better finally today after the past 2 weeks with pneumonia. He finished his antibiotic yesterday. He is still short of breath, but this is somewhat improved. He continues with cough but denies chest pain, fever or chills. He is tolerating durvalumab well- no diarrhea, skin rash or abdominal pain. Labs reviewed and ok for treatment. We will have him get a chestXR prior to treatment today and will plan his re-staging CT scan for 2-3 weeks with follow-up after. He will continue monthly durvalumab unless he progresses, has a pneumonitis or other new symptoms of toxicity arise. 11/11/2021: Bert presents with his for follow-up. His severe right-sided chest pain and dyspnea has now completely resolved from last visit. He has not had any suggestive toxicities from durvalumab--no diarrhea, skin rashes, or recurrent dyspnea. He has returned to normal performance status and denies any fatigue. We reviewed his laboratories showing no immunotherapy related endocrine toxicities. Since he is now at normal baseline, I will give his 2-week dosing of durvalumab today then change to every 4-week dosing. His next follow-up with me will be in 6 weeks and he will have restaging CT chest in late December unless new symptoms arise. 10/14/2021: Bert was sent to ER 1 week ago (10/07/2021) after presenting with severe right-sided chest pain for about 1 week. He did not report worsening with inspiration but was worse with eating. Chest CT showed regression of priorright middle lobe tumor with internal necrosis and regression of prior adenopathy. There was an infiltrate posterior to his mass and no evidence of pulmonary embolism. He completed a course of azithromycin and notes that his chest pain is now completely resolved. He has no dyspnea with exertion or cough. Otherwise tolerated initial Durvalumab dose well--few loose stools the evening of his dose but no anny diarrhea, no skin rashes, and laboratories are stable. He also notes that Dr. Smith recommended starting N-acetylcysteine supplementation for his immunity, however I asked him to hold this for now sincehe has only recently started durvalumab and I will research whether this is indicated with his immunotherapy. --We will continue every 2-week durvalumab to see if he has any further toxicities, then follow-up in 1 month. If well-tolerated we will change to every 4-week dosing. 09/24/2021: Bert presents with his to discuss commencing immunotherapy after completing 6 weeks of concurrent chemoradiation (last dose chemo 09/10, last radiation 09/16). Fatigue improved but he has had 3 episodes of epistaxis over the past week (longest lasting about 6-7 minutes). Improved with saline nasal spray--offered ENT eval but he wants to observe. Mild dyspnea on exertionand cough. Today we discussed immunotherapy maintenance with Durvalumab over one year (initially every 2 weeks, then every 4 weeks if well tolerated). Goal of therapy is curative. Today we reviewed immunotherapy (checkpoint inhibitor) counseling for Durvalumab. Common toxicities were reviewed to include infusion reactions and allergic reactions, fatigue, skin rashes, visual and ocular toxicities, diarrhea, abdominal pain from pancreatitis, and abnormal thyroid, adrenal, and pituitary function. Other toxicities may include pneumonitis, sexual side effects, neurologic, hepatic and renal toxicities. The patient signed informed consent and will follow-up as directed. I will see him C2D1 durvalumab for tox check. 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 He has tolerated his treatment exceptionally well and has had very few side effects/toxicities to therapy. He reports good appetite, stable weight.Essentially has no pain and has only required 4 doses of Zofran for breakthroughnausea. He has mild GERD-like symptoms, well controlled with Prilosec. Specifically denies any issues with headaches, fever/chills, cough, shortness ofbreath, bowel/bladder problems, peripheral neuropathy, skin rash or lower extremity edema. --He will complete radiotherapy on Tuesday, September 16, 2021 and his last cycle (#6) weekly Carbo/Taxol will be given today. 08/27/2021: Here for week for follow-up of weekly carboplatin paclitaxel. Fatigue mildly increased with decreased appetite and minimal dysphagia but does not need to take additional medicine other than Tylenol for this. Otherwise no cough, dyspnea, fever, chills and no significant peripheral neuropathy. He willfollow-up in 2 weeks for chemoradiation toxicity visit with our nurse practitioner. I will then see him in 4 weeks after completion of chemoradiationand will discuss whether he gets consolidation carboplatin paclitaxel after restaging scan or continue with maintenance immunotherapy alone. 08/12/2021: Started concurrent chemoradiation with weekly Carboplatin/Paclitaxelone week ago. Tolerating well without cough, dyspnea, chest pain, bowel or bladder symptoms, or neuropathy. Will continue to follow every 2 weeks while onchemoradiation--likely candidate for one year immunotherapy with Imfinzi if response. 07/17/2021: This is a 71 yo male accompanied by his for new diagnosis of right upper lobe mass, wrapping around right mainstem bronchus, with associated mediastinal adenopathy. He apparently had right upper lobe pneumonia in 2019, no imaging since that time. He is a former smoker, prior 40 year history, quit about 18 years ago. About 1-2 months ago he had persistent nonproductive cough without hemoptysis. Increased dyspnea, but his notes he has had chronic dyspnea over the past 4 years. Slow nonquantified weight loss, decreased appetite, hoarseness, and mild right chest discomfort. CT Chest imaging at [facility] on 06/23/2021 showed a large lobulated mass of the superior segment of the right upper lobe extending to the hilum. There appears to be invasion of themass into the right mainstem bronchus. The mass measures approximately 5.5 x 7.6x 6.0 cm. There is a low density lesion in the liver that appears to be a cyst. 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 He does not have other significant comorbidities, prior malignancy, or known family history. We discussed that involvement of the right mainstem bronchus and mediastinum is consistent with likely Stage III lung cancer, but he needs a PET/CT to exclude liver metastases. If no distant metastatic disease on PET/CT, we will coordinate chemoradiation with weekly carboplatin/paclitaxel. I ordered PET/CT, radiation oncology consultation and reviewed informed consent for Carboplatin/Paclitaxel. I will see him the same day as Radiation Oncology consult to review PET/CT. He did sign informed consent today to expedite concurrent chemoradiation if no distant metastatic disease. We will also contact pathology to add PDL1 status--if metastatic disease, he may be a candidate for immunotherapy +/- chemotherapy. Today we reviewed chemotherapy counseling for weekly Carboplatin and Paclitaxel. Goal of therapy is curative if stage III. Common toxicities were reviewed to include infusion reactions/allergic reactions, myelosuppression, fatigue, nausea, vomiting, constipation, diarrhea, mouth sores, and alopecia. Other toxicities may include pneumonitis, neurologic, hepatic and renal toxicities. Risk of secondary malignancy due to effects of chemotherapy on bone marrow. Thepatient signed informed consent and will follow-up as directed. - Summary of Therapies Summary of Therapies: 08/06/2021: Commenced concurrent chemoradiation with Carboplatin AUC 2 IV Day 1 and Paclitaxel 45mg/m2 IV Day 1 weekly x 6 cycles. He was started on concurrent chemoradiotherapy treatment and received a dose of 6000 cGy to the right upper lobe mass and mediastinal nodes (bilateral) in 30 fractions from 08/06/2021 to 09/16/2021 over 41 elapsed days. Last cycle chemotherapy: 09/10/2021 - 09/30/2021: Cycle 1, Day 1 Durvalumab 10mg/kg IV every 2 weeks immunotherapy x 1 year. After 11/11/2021 2-week dose, changed to flat dose 1500 mg IV every 4-week dosing to complete 1 year of adjuvant immunotherapy. Last dose aptiecncl32/19/2022. ROS Details: All systems reviewed & no additional complaints except as documented Subjective/ROS - Narrative: CONSTITUTIONAL: Stable mild fatigue (after chemoradiation completed), negative for fever or night sweats. HEAD AND NECK: Negative for changes in hearing and vision. Negative for mouth ulcers, nasal congestion and nasal drainage. No recurrence of prior epistaxis. PULMONARY: Late September 2021 ER for worsening right chest wall pain--regressionof tumor with necrosis and small infiltrate noted on CT--prior cavitary lesion within area of consolidation of right lower lobe is now resolved. Recurrent dyspnea/cough x 1-2 weeks following durvalumab, resolves with steroids each cycle. Stable symptoms. No significant cough. No hoarseness or dyspnea on exertion. CARDIOVASCULAR: Negative for claudication and irregular heartbeat/palpitations. No edema. GASTROINTESTINAL: Negative for abdominal pain, constipation, diarrhea, nausea, or vomiting. Improved appetite and improving dysphagia/resolved odynophagia as per HPI. GENITOURINARY: Negative for dysuria and hematuria. + h/o nephrolithiasis. ENDOCRINE: Negative for cold intolerance and heat intolerance. CENTRAL NERVOUS SYSTEM: Negative for gait disturbance and headache. No history of stroke. PSYCHIATRIC: Negative for anxiety or depression. DERMATOLOGICAL: Negative for pruritus and rash. Negative for suspicious skin lesions. MUSCULOSKELETAL: Negative for back pain and bone/joint symptoms. HEMATOLOGICAL: Negative for bleeding and easy bruising. Negative for history of transfusion or thromboembolic disease ALLERGY: Negative for environmental allergies and food allergies. PMFSH - History Attestation statement: The following information was validated with the patient. Source: Old Records Reviewed - Medical History Medical History: Medical History (Last Reviewed 08/04/22 @ 14:19 by Natacha Hess MD) Cough Hyperlipidemia Hypertensive heart disease Kidney stone Lung mass Shortness of breath - Surgical History Surgical History: Surgical History (Last Reviewed 08/04/22 @ 14:19 by Natacha Hess MD) History of carpal tunnel release History of neck surgery - Family History Family History: Family History (Last Reviewed 08/04/22 @ 14:19 by Natacha Hess MD) Father Heart disease Mother Diabetes Hypertension Sister Cancer - Social History Smoking Status: Former smoker Substance Use Type: None Home Medications & Allergies Allergies No Known Drug Allergies Allergy (Unknown, Verified 08/04/22 10:43) none Home Medications simvastatin 40 mg tablet (Zocor) 80 mg PO DAILY 02/26/18 [History Confirmed 08/04/22] aspirin 81 mg chewable tablet 81 mg PO DAILY ##0 02/27/18 [Rx Confirmed 05/05/22] hydrochlorothiazide 25 mg tablet 25 mg PO DAILY 30 days #30 tabs 02/27/18 [Rx Confirmed 05/05/22] carvedilol 3.125 mg tablet 3.125 mg PO Q12H 07/17/21 [History Confirmed 05/05/22] losartan 25 mg tablet 25 mg PO DAILY 07/17/21 [History Confirmed 05/05/22] docusate sodium 100 mg capsule (Colace) 200 mg PO QHS 01/21/22 [History Confirmed 05/05/22] Objective - Height/Weight Height/Weight: Height 5 ft 10 in Weight 120.202 kg BSA for Today's Weight 2.41 - Vital Signs Vital Signs: 08/04/22 10:46 Temperature 97.5 F L Pulse Rate [Left Brachial] 77 Respiratory Rate 16 Blood Pressure [Right Arm] 132/84 02 Sat by Pulse Oximetry 95 Oxygen Delivery Method Room Air - Pain Right Chest Pain Intensity: 2 - Distress Screening Distress Screen Results: RN Distress Screening Start: 07/17/21 11:07 Freq: Status: Complete Protocol: Document 09/01/21 09:44 DB (Rec: 09/01/21 09:45 DB [id number]) Distress Screening Distress Score: 2 Emotional Concerns Feeling uncertain about the future Distress Screening Total 2 Physical Exam Narrative: CONSTITUTIONAL: The patient is in no acute distress. HEAD / FACE: Normocephalic; atraumatic, no scleral icterus. EYES: Pupils are equal and reactive to light. Conjunctivae and lids are benign in appearance. Ocular movement intact. EARS: Hearing grossly intact. NOSE / MOUTH / THROAT: Nose, mouth, tongue and oropharynx are benign in appearance. No signs of inflammation. NECK / THYROID: Neck is supple. Thyroid is symmetrical, without thyromegaly, masses or palpable nodules. LYMPHATIC: No palpable cervical, supraclavicular, axillary, or inguinal adenopathy. RESPIRATORY: Normal to inspection. Lungs clear to auscultation bilaterally; occasional coarse rhonchi resolved with cough but no wheezes or rales. Nonlabored respirations CARDIOVASCULAR: Regular rate and rhythm. No murmurs, gallops, or rubs. VASCULAR: Carotid, radial, femoral and pedal pulses present bilaterally. No bruits. ABDOMEN: Bowel sounds normoactive. Soft, nontender and non-distended. No hepatosplenomegaly. No masses. INTEGUMENTARY: The skin is unremarkable. No rashes. No suspicious lesions MUSCULOSKELETAL: Normal musculature, no joint deformities or abnormalities, normal range of motion for all four extremities. EXTREMITIES: No edema, cyanosis or clubbing. NEUROLOGICAL: Alert and oriented. Cranial nerves intact. No gross motor or sensory deficits. Ambulates independently. PSYCHIATRIC: No anxiety or evidence of depression. - ECOG Performance Status ECOG Score: 1 Results - Labs Labs: Diagram of Most Recent CBC and CMP 08/02/22 08:10 08/02/22 08:10 Labs - Last 7 Days 08/02/22 08:10: PHA Creatinine Clear 72.92, Sodium 139, Potassium 3.2 L, Chloride 104, Carbon Dioxide 25.3, Anion Gap 12.9, BUN 18, Creatinine 1.23, Est GFR ( Amer) > 60, Est GFR (Non-Af Amer) 58, Glucose 113 H, Calcium 9.3, Total Bilirubin 0.4, AST 15, ALT 21, Alkaline Phosphatase 35, Total Protein 6.2,Albumin 3.3, Globulin 2.9, Albumin/Globulin Ratio 1.1 08/02/22 08:10: Corrected WBC 10.7 H, Uncorrected WBC Count 10.7, RBC 4.34, Hgb 12.1 L, Hct 36.7 L, MCV 84.5, MCH 27.9, MCHC 33.1, RDW 19.3 H, Plt Count 404, MPV 7.4, Neut % (Auto) 65.7, Lymph % (Auto) 17.8, [place] % (Auto) 13.8, Eos % (Auto) 2.0, Baso % (Auto) 0.7, Neut # (Auto) 7.0, Lymph # (Auto) 1.9, [place] # (Auto) 1.5 H, Eos # (Auto) 0.2, Baso # (Auto) 0.1, Nucleated RBC % (auto) 0.1 08/02/22 08:10: ACTH 14.8 08/02/22 08:10: Free T4 0.69, TSH 3rd Generation 2.94, Total Cortisol 7.3 - Impressions CT CHEST WITH INTRAVENOUS CONTRAST: CLINICAL HISTORY: Right lung mass COMPARISON: CT chest 04/23/2022 TECHNIQUE: Spiral images were obtained through the chest following intravenous administration of IV contrast. This CT exam was performed using one or more following dose reduction techniques: Automated exposure control, adjustment of the mA and/or kV according to patient size, or use of iterative reconstruction technique. FINDINGS: Mediastinum:Thoracic aorta appears normal in caliber. Pulmonary trunk appears nondilated. No pericardial effusion. Calcified mediastinal and left hilar lymph nodes. No lymphadenopathy. The esophagus is grossly unremarkable. Lungs:Persistent consolidative changes are noted involving the right upper lobe with associated presumed loculated pleural effusion. The cavitary component appears to have essentially resolved since the prior study. Stable presumed scarring is noted involving the left hilar region. Scattered scarring/reticular changes. No pneumothorax. No suspicious pulmonary nodule. Abd:Partially visualized cyst right kidney. Small cyst involving the liver. Soft tissues/Bones: Visualized soft tissues are in the chest wall demonstrate noacute findings. Osseous structures demonstrate degenerative change. CT/CT chest w con IMPRESSION: Persistent consolidative changes with loculated pleural effusion involving the right upper lobe. The cavitary component appears to have essentially resolved since the prior study. Stable presumed scarring involving the left hilar region.No new areas of consolidation or nodularity is seen. Attention on follow-up is recommended. Impression dictated by: Crescencio Blanca Jr., D.OAnselmo08/02/2022 11:00 AM Assessment and Plan - TNM Staging Staging: Stage IIIB right upper lobe (overlapping sites involving right mainstem bronchus). No distant metastatic disease on PET/CT for final staging. 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 No distant metastatic disease on PET/CT, therefore we coordinated chemoradiation with weekly carboplatin/paclitaxel. He commenced weekly Carboplatin/Paclitaxel with radiation on 08/06/2021 and today he will be receiving #6 Carboplatin/Paclitaxel and is scheduled to completed radiation therapy on 09/16/2021. 08/12/2021: No toxicities other than mild increase in creatinine. 08/27/2021: Grade 1 odynophagia with decreased appetite. Added sucralfate slurry 1 g every 6 hours as needed for remainder of chemoradiation. 09/10/2021: Grade 1 fatigue; otherwise no significant toxicities to chemotherapy; weight is stable; stable anemia. Normal electrolytes. Minimal nausea and no significant pain other than some acid reflux like symptoms; well controlled with Prilosec. --Patient completed Cycle 6 weekly Carboplatin/Paclitaxel therapy (09/10/2021) and radiotherapy to complete on 09/16/2021. 09/24/2021: Reviewed informed consent for Durvalumab maintenance therapy 10mg/kg IV every 2 weeks x 1 year (ok to change to monthly therapy if well tolerated). 10/14/2021: Patient was sent to ER for right chest wall pain on 10/07 following first durvalumab dose 09/30/2021. Noted to have regression of prior right middle lobe lesion and adenopathy with small adjacent infiltrate (this may be postradiation change but patient was placed on antibiotics). His pain has now completely resolved with no significant cough. Otherwise tolerating immunotherapy well. We will continue him on every 2-week dosing until receivingwhether he has recurrent chest discomfort or symptoms on durvalumab. Next follow-up with me in 4 weeks for toxicity check on immunotherapy. We will not repeat his chest CT since this was just performed in emergency department. 01/22/2022: Patient is here for 3-month follow-up on durvalumab maintenance therapy. He has had recurrent episodes of chest wall pain and dyspnea, previously treated with antibiotics and subsequent steroids. He notes that his symptoms tend to worsen for about 1 to 2 weeks following his immunotherapy, usually beginning 2 to 3 days after therapy. I will give him a brief course of Medrol Dosepak with each cycle and he will have reassessment with nurse practitioner for toxicity visit next week to see if this prevents his cough and dyspnea symptoms. We reviewed his restaging CT chest which shows reduction in size of his cavitary lesion in the right hilum from 6.5 to 5.2 cm in greatest diameter. There are evolving postradiation changes consistent with his pneumonitis and interval development of trace right-sided pleural effusion. Next follow-up with me will be in [address] chest at that time, although he may follow-up sooner after his [employer] visit if he is having persistent pneumonitis. 02/17/2022: He has done very well with the Medrol Dosepak after Durvalumab infusion, and denies chest pain, cough or dyspnea at rest- overall near resolution of symptoms. We will continue with this plan and he will follow-up with Dr. Hess in [address], labs. He has no questions today and isin agreement with this plan. 05/05/2022: No new symptoms--stable dyspnea/cough and improved right chest discomfort with Medrol dose pack after each cycle. Restaging CT with decreasingsoft tissue component within cavitary lesion. Some surrounding ground glass opacities consistent with known pneumonitis in prior radiation field. Followup [address] Chest. Continue Medrol dose pack after each cycle. 08/04/2022: Bert notes that since he saw Dr. Ann last month his breathing hasbeen relatively stable. He was placed on tapering doses of steroids which will be Repeated monthly until the end of immunotherapy. Yesterday he had a prolonged coughing episode that has resolved and he will continue on current dose of prednisone 30 mg daily until his next scheduled step down to [address] Ann did not note any benefit from inhaled bronchodilators or steroids but did recommend systemic steroids. The patient's most recent CT scanshowed resolution of his prior cavitary lesion and overall mild regression of consolidation in the right mid to lower lung joiner. Otherwise no new nodules. The patient will receive second to last dose of durvalumab today. Last dose 1 year of maintenance durvalumab will be 09/01/2022. I will schedule restaging CT chest and follow-up with me in 3 months for survivorship visit. Hemay return sooner if new symptoms arise. Mod complexity visit over 35 minutes to review restaging scans. (2) Drug-induced pneumonitis Recurrent pneumonitis as addressed above. Medrol Dosepak for 1 week following next durvalumab and reassessment with next practitioner to see if this alleviates his symptoms. 02/17/2022: see above. Near resolution of symptoms with addition of Medrol Dosepak. He is back to his baseline dyspnea on exertion only with increased activity 05/05/2022: Intermittent worsening of cough and dyspnea between cycles but much improved with medrol dose pack each cycle. 08/04/2022: I reviewed progress note from consultation with pulmonary medicine Dr. Ann who recommends recurrent courses of prednisone 40 mg daily for 7 days, 30 mg daily for 7 days, 20 mg daily for 7 days, then 10 mg daily for 7 days. This will be repeated once monthly until pneumonitis improved off immunotherapy within the next 2 months. He will have follow-up appointment withDr. Ann next month. (3) Encounter for antineoplastic immunotherapy No distant metastatic disease on PET/CT for staging (bilateral mediastinal and subcarinal adenopathy noted). Concurrent chemoradiation commenced 08/06/2021--Carboplatin AUC 2 IV and Paclitaxel 45mg/m2 IV weekly x 6-7 weeks. Tolerated well. He completed Cycle 6 weekly Carboplatin/Paclitaxel therapy 09/10/2021 and radiotherapy complete on 09/16/2021. Cycle 1 day 1 09/30/2021 durvalumab 10mg/kg IV every 2 weeks immunotherapy as noted above. Changed to flat dose durvalumab 1500 milligrams IV every 4 weeks with 11/23/2021 dose. 08/04/2022: Continue durvalumab 1500mg IV every 4 weeks in addition to Medrol Dosepak day after each infusion given improvement of pneumonitis symptoms. End of 1 year of therapy 09/01/2022 - Chemo Plan Chemo Plan (Dose, Rate, Freq): Concurrent chemoradiation with Carboplatin AUC 2 IV Day 1 and Paclitaxel 45mg/m2IV Day 1 weekly x 6-7 weeks. Durvalumab 10mg/kg IV every 2 week immunotherapy x2 months then 1500mg IV q 4weeks to complete 1 year of therapy. Goal of Treatment: Curative - Time with Patient Time Spent with Patient (Follow Up Visit): 35 minutes - moderate complexity for immunotherapy toxicity check, review of immunotherapy related pneumonitis and pulmonary consult, restaging scan. Coordination of Care & Counseling Time: Greater than 50% of time spent with patient was for coordination of care (as documented) and [id number] counseling of patient and/or family. Dictated By: Natacha Hess MD DD/ [id number] Signed By: <Electronically signed by MD Natacha Hess> 08/04/22 1430 [facility] Work Phone: [phone] 725-900806-22-2022 Progress note Author Natacha Hess [facility] May 05, 2022 8:16pm Note Date/Time May 05, 2022 9:[address] [facility] [place] [place] [address] Hem/Onc Follow Up Note - OP Signed Patient: Bert Yeung MR#: [id number] : 1950 Acct:[id number] Age/Sex: 71 / M Type: REG RCR Copies to: Howie Fulton MD~ Subjective Date/Time of Service: Date of Service: 05/05/2022 Time of Service: 09:39 Chief Complaint: Patient is here today for a 2 month follow and go over CT scan. HPI: 05/05/2022: Improvement of prior right chest wall pain with use of Medrol Dosepaks after each cycle of durvalumab. Stable dyspnea and cough. No other immunotherapy related toxicities other than pneumonitis. Restaging CT Chest reviewed--primary lesion similar size but more cavitary with surrounding ground glass opacities in prior radiation field. Will continue current durvalumab maintenance. Next f/u 3 months with contrast chest CT. End of therapy will be 08/2022 (sooner if unable to tolerate due to pneumonitis--tolerable with brief steroid course each cycle. 02/17/2022: Bert presents today to evaluate symptoms. He previously noted significant dyspnea and cough with his durvalumab, so he was given a Medrol Dosepak to start 1 day after durvalumab treatment. He states after this cycle, he noticed a significant improvement in his symptoms with initiation of the dosepakand denies any dyspnea at rest or around the house after treatment. He still hasdyspnea on exertion when he's more active, but this is mild now and more his baseline. He continues to deny other symptoms such as rash, abdominal pain or diarrhea. Labs are reviewed and remain stable. We will continue with durvalumab + medrol dosepak every 4 weeks, and will plan for follow-up in 3 months with . He will call sooner if his symptoms worsen or new symptoms develop. 01/21/2022: Bert presents for durvalumab immunotherapy today. He notes that with prior cycles he has had recurrent dyspnea and cough that is treated with steroids with some improvement about 1 week prior to his next cycle. He now notes that his shortness of breath is at baseline. He has otherwise not had anyother symptoms such as diarrhea, skin rash, or abdominal pain and his labs remained stable. 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 We discussed 1 more cycle durvalumab and I will give him a Medrol Dosepak to start 1 day after his durvalumab dose to see if we can preempt his inflammatory reaction. If he does not tolerate his durvalumab well we may consider stopping maintenance immunotherapy early. He is in agreement with thisplan. Next toxicity visit within 1 month. 12/23/2021: Bert presents today with his for follow-up for his lung cancer. He states he is feeling better finally today after the past 2 weeks with pneumonia. He finished his antibiotic yesterday. He is still short of breath, but this is somewhat improved. He continues with cough but denies chest pain, fever or chills. He is tolerating durvalumab well- no diarrhea, skin rash or abdominal pain. Labs reviewed and ok for treatment. We will have him get a chestXR prior to treatment today and will plan his re-staging CT scan for 2-3 weeks with follow-up after. He will continue monthly durvalumab unless he progresses, has a pneumonitis or other new symptoms of toxicity arise. 11/11/2021: Bert presents with his for follow-up. His severe right-sided chest pain and dyspnea has now completely resolved from last visit. He has not had any suggestive toxicities from durvalumab--no diarrhea, skin rashes, or recurrent dyspnea. He has returned to normal performance status and denies any fatigue. We reviewed his laboratories showing no immunotherapy related endocrine toxicities. Since he is now at normal baseline, I will give his 2-week dosing of durvalumab today then change to every 4-week dosing. His next follow-up with me will be in 6 weeks and he will have restaging CT chest in lateFebruary unless new symptoms arise. 10/14/2021: Bert was sent to ER 1 week ago (10/07/2021) after presenting with severe right-sided chest pain for about 1 week. He did not report worsening with inspiration but was worse with eating. Chest CT showed regression of priorright middle lobe tumor with internal necrosis and regression of prior adenopathy. There was an infiltrate posterior to his mass and no evidence of pulmonary embolism. He completed a course of azithromycin and notes that his chest pain is now completely resolved. He has no dyspnea with exertion or cough. Otherwise tolerated initial Durvalumab dose well--few loose stools the evening of his dose but no anny diarrhea, no skin rashes, and laboratories are stable. He also notes that Dr. Smith recommended starting N-acetylcysteine supplementation for his immunity, however I asked him to hold this for now sincehe has only recently started durvalumab and I will research whether this is indicated with his immunotherapy. --We will continue every 2-week durvalumab to see if he has any further toxicities, then follow-up in 1 month. If well-tolerated we will change to every 4-week dosing. 09/24/2021: Bert presents with his to discuss commencing immunotherapy after completing 6 weeks of concurrent chemoradiation (last dose chemo 09/10, last radiation 09/16). Fatigue improved but he has had 3 episodes of epistaxis over the past week (longest lasting about 6-7 minutes). Improved with saline nasal spray--offered ENT eval but he wants to observe. Mild dyspnea on exertionand cough. Today we discussed immunotherapy maintenance with Durvalumab over one year (initially every 2 weeks, then every 4 weeks if well tolerated). Goal of therapy is curative. Today we reviewed immunotherapy (checkpoint inhibitor) counseling for Durvalumab. Common toxicities were reviewed to include infusion reactions and allergic reactions, fatigue, skin rashes, visual and ocular toxicities, diarrhea, abdominal pain from pancreatitis, and abnormal thyroid, adrenal, and pituitary function. Other toxicities may include pneumonitis, sexual side effects, neurologic, hepatic and renal toxicities. The patient signed informed consent and will follow-up as directed. I will see him C2D1 durvalumab for tox check. 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 He has tolerated his treatment exceptionally well and has had very few side effects/toxicities to therapy. He reports good appetite, stable weight.Essentially has no pain and has only required 4 doses of Zofran for breakthroughnausea. He has mild GERD-like symptoms, well controlled with Prilosec. Specifically denies any issues with headaches, fever/chills, cough, shortness ofbreath, bowel/bladder problems, peripheral neuropathy, skin rash or lower extremity edema. --He will complete radiotherapy on Tuesday, September 16, 2021 and his last cycle (#6) weekly Carbo/Taxol will be given today. 08/27/2021: Here for week for follow-up of weekly carboplatin paclitaxel. Fatigue mildly increased with decreased appetite and minimal dysphagia but does not need to take additional medicine other than Tylenol for this. Otherwise no cough, dyspnea, fever, chills and no significant peripheral neuropathy. He willfollow-up in 2 weeks for chemoradiation toxicity visit with our nurse practitioner. I will then see him in 4 weeks after completion of chemoradiationand will discuss whether he gets consolidation carboplatin paclitaxel after restaging scan or continue with maintenance immunotherapy alone. 08/12/2021: Started concurrent chemoradiation with weekly Carboplatin/Paclitaxelone week ago. Tolerating well without cough, dyspnea, chest pain, bowel or bladder symptoms, or neuropathy. Will continue to follow every 2 weeks while onchemoradiation--likely candidate for one year immunotherapy with Imfinzi if response. 07/17/2021: This is a 70 yo male accompanied by his for new diagnosis of right upper lobe mass, wrapping around right mainstem bronchus, with associated mediastinal adenopathy. He apparently had right upper lobe pneumonia in 2019, no imaging since that time. He is a former smoker, prior 40 year history, quit about 18 years ago. About 1-2 months ago he had persistent nonproductive cough without hemoptysis. Increased dyspnea, but his notes he has had chronic dyspnea over the past 4 years. Slow nonquantified weight loss, decreased appetite, hoarseness, and mild right chest discomfort. CT Chest imaging at [facility] on 06/23/2021 showed a large lobulated mass of the superior segment of the right upper lobe extending to the hilum. There appears to be invasion of themass into the right mainstem bronchus. The mass measures approximately 5.5 x 7.6x 6.0 cm. There is a low density lesion in the liver that appears to be a cyst. 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 He does not have other significant comorbidities, prior malignancy, or known family history. We discussed that involvement of the right mainstem bronchus and mediastinum is consistent with likely Stage III lung cancer, but he needs a PET/CT to exclude liver metastases. If no distant metastatic disease on PET/CT, we will coordinate chemoradiation with weekly carboplatin/paclitaxel. I ordered PET/CT, radiation oncology consultation and reviewed informed consent for Carboplatin/Paclitaxel. I will see him the same day as Radiation Oncology consult to review PET/CT. He did sign informed consent today to expedite concurrent chemoradiation if no distant metastatic disease. We will also contact pathology to add PDL1 status--if metastatic disease, he may be a candidate for immunotherapy +/- chemotherapy. Today we reviewed chemotherapy counseling for weekly Carboplatin and Paclitaxel. Goal of therapy is curative if stage III. Common toxicities were reviewed to include infusion reactions/allergic reactions, myelosuppression, fatigue, nausea, vomiting, constipation, diarrhea, mouth sores, and alopecia. Other toxicities may include pneumonitis, neurologic, hepatic and renal toxicities. Risk of secondary malignancy due to effects of chemotherapy on bone marrow. Thepatient signed informed consent and will follow-up as directed. - Summary of Therapies Summary of Therapies: 08/06/2021: Commenced concurrent chemoradiation with Carboplatin AUC 2 IV Day 1 and Paclitaxel 45mg/m2 IV Day 1 weekly x 6 cycles. He was started on concurrent chemoradiotherapy treatment and received a dose of 6000 cGy to the right upper lobe mass and mediastinal nodes (bilateral) in 30 fractions from 08/06/2021 to 09/16/2021 over 41 elapsed days. Last cycle chemotherapy: 09/10/2021 - 09/30/2021: Cycle 1, Day 1 Durvalumab 10mg/kg IV every 2 weeks immunotherapy x 1 year. After 11/11/2021 2-week dose, changed to flat dose 1500 mg IV every 4-week dosing to complete 1 year of adjuvant immunotherapy. ROS Details: All systems reviewed & no additional complaints except as documented Subjective/ROS - Narrative: CONSTITUTIONAL: Resolved fatigue (after chemoradiation completed), negative for fever or night sweats. HEAD AND NECK: Negative for changes in hearing and vision. Negative for mouth ulcers, nasal congestion and nasal drainage. No recurrence of prior epistaxis. PULMONARY: Late September 2021 ER for worsening right chest wall pain--regressionof tumor with necrosis and small infiltrate noted on CT. Recurrent dyspnea/cough x 1-2 weeks following durvalumab, resolves with steroids each cycle. Stable symptoms. No significant cough. No hoarseness or dyspnea on exertion. CARDIOVASCULAR: Negative for claudication and irregular heartbeat/palpitations. No edema. GASTROINTESTINAL: Negative for abdominal pain, constipation, diarrhea, nausea, or vomiting. Improved appetite and improving dysphagia/resolved odynophagia as per HPI. GENITOURINARY: Negative for dysuria and hematuria. + h/o nephrolithiasis. ENDOCRINE: Negative for cold intolerance and heat intolerance. CENTRAL NERVOUS SYSTEM: Negative for gait disturbance and headache. No history of stroke. PSYCHIATRIC: Negative for anxiety or depression. DERMATOLOGICAL: Negative for pruritus and rash. Negative for suspicious skin lesions. MUSCULOSKELETAL: Negative for back pain and bone/joint symptoms. HEMATOLOGICAL: Negative for bleeding and easy bruising. Negative for history of transfusion or thromboembolic disease ALLERGY: Negative for environmental allergies and food allergies. PMFSH - History Attestation statement: The following information was validated with the patient. Source: Old Records Reviewed - Medical History Medical History: Medical History (Last Reviewed 05/05/22 @ 20:08 by Natacha Hess MD) Cough Hyperlipidemia Hypertensive heart disease Kidney stone Lung mass Shortness of breath - Surgical History Surgical History: Surgical History (Last Reviewed 05/05/22 @ 20:08 by Natacha Hess MD) History of carpal tunnel release History of neck surgery - Family History Family History: Family History (Last Reviewed 05/05/22 @ 20:08 by Natacha Hess MD) Father Heart disease Mother Diabetes Hypertension Sister Cancer - Social History Smoking Status: Former smoker Substance Use Type: None Home Medications & Allergies Allergies No Known Drug Allergies Allergy (Unknown, Verified 05/05/22 09:32) none Home Medications simvastatin 40 mg tablet (Zocor) 40 mg PO DAILY 02/26/18 [History Confirmed 05/05/22] aspirin 81 mg chewable tablet 81 mg PO DAILY #0 tab 02/27/18 [Rx Confirmed 05/05/22] hydrochlorothiazide 25 mg tablet 25 mg PO DAILY 30 Days #30 tab 02/27/18 [Rx Confirmed 05/05/22] carvedilol 3.125 mg tablet 3.125 mg PO Q12H 07/17/21 [History Confirmed 05/05/22] losartan 25 mg tablet 25 mg PO DAILY 07/17/21 [History Confirmed 05/05/22] ondansetron HCl 8 mg tablet 8 mg PO Q8H PRN #30 tab 08/05/21 [Rx Confirmed 05/05/22] hyaluronic eceyqh-pwowcjftj-uqjg vera extract topical gel (RadiaPlexRx) 1 applicTOPICAL TID 08/25/21 [History Confirmed 05/05/22] hydrocortisone 1 % topical cream 1 applic TOPICAL TID 08/25/21 [History Confirmed 05/05/22] hyaluronic kwmyul-pcborbhws-uchk vera extract topical gel (RadiaPlexRx) 1 applicTOPICAL TID 09/15/21 [History Confirmed 05/05/22] docusate sodium 100 mg capsule (Colace) 200 mg PO QHS 01/21/22 [History Confirmed 05/05/22] oxycodone-acetaminophen 5 mg-325 mg tablet (Percocet) 1 tab PO Q4-6H PRN 15 Days#90 tab 04/20/22 [Rx Confirmed 05/05/22] Objective - Height/Weight Height/Weight: Height 5 ft 10 in Weight 118.388 kg BSA for Today's Weight 2.43 - Vital Signs Vital Signs: 05/05/22 09:35 Temperature 97.8 F Pulse Rate [Left Brachial] 88 Respiratory Rate 16 Blood Pressure [Right Arm] 127/81 02 Sat by Pulse Oximetry 98 - Pain Right Chest Pain Intensity: 2 - Distress Screening Distress Screen Results: RN Distress Screening Start: 07/17/21 11:07 Freq: Status: Complete Protocol: Document 09/01/21 09:44 DB (Rec: 09/01/21 09:45 DB [id number]) Distress Screening Distress Score: 2 Emotional Concerns Feeling uncertain about the future Distress Screening Total 2 Physical Exam Narrative: CONSTITUTIONAL: The patient is in no acute distress. HEAD / FACE: Normocephalic; atraumatic, no scleral icterus. EYES: Pupils are equal and reactive to light. Conjunctivae and lids are benign in appearance. Ocular movement intact. EARS: Hearing grossly intact. NOSE / MOUTH / THROAT: Nose, mouth, tongue and oropharynx are benign in appearance. No signs of inflammation. NECK / THYROID: Neck is supple. Thyroid is symmetrical, without thyromegaly, masses or palpable nodules. LYMPHATIC: No palpable cervical, supraclavicular, axillary, or inguinal adenopathy. RESPIRATORY: Normal to inspection. Lungs clear to auscultation bilaterally; no wheezes, rhonchi or rales. Nonlabored respirations CARDIOVASCULAR: Regular rate and rhythm. No murmurs, gallops, or rubs. VASCULAR: Carotid, radial, femoral and pedal pulses present bilaterally. No bruits. ABDOMEN: Bowel sounds normoactive. Soft, nontender and non-distended. No hepatosplenomegaly. No masses. INTEGUMENTARY: The skin is unremarkable. No rashes. No suspicious lesions MUSCULOSKELETAL: Normal musculature, no joint deformities or abnormalities, normal range of motion for all four extremities. EXTREMITIES: No edema, cyanosis or clubbing. NEUROLOGICAL: Alert and oriented. Cranial nerves intact. No gross motor or sensory deficits. Ambulates independently. PSYCHIATRIC: No anxiety or evidence of depression. - ECOG Performance Status ECOG Score: 1 Results - Labs Labs: Diagram of Most Recent CBC and CMP 04/13/22 16:35 04/13/22 16:35 - Impressions Date of Service: 04/23/22 CT/CT chest w con: re-staging CT chest w con 04/23/2022 11:23 AM SIGN AND SYMPTOMS: Restaging right upper lobe mass, right shoulder pain, ongoingshortness of breath CONTRAST: 01/13/2022 TECHNIQUE: Multidetector CT axial slices of the chest were obtained 75 mL of intravenous Isovue-300 IV contrast. Multiplanar reformats were performed and viewed on a separate workstation and reviewed to further define anatomy and possible pathology. CT was performed with one or more of the following dose reduction techniques: Automated exposure control, adjustment of the mA and/or kVaccording to patient size, or use of iterative reconstruction technique. COMPARISON: 01/13/2022. FINDINGS: Lower neck: Thyroid gland within normal limits, no supraclavicle adenopathy. Vessels: Atherosclerotic changes are noted in the coronary arteries and thoracicaorta. There is narrowing of the segmental branches of the right pulmonary artery secondary to soft tissue mass in the right hilum. This is similar to the prior exam. Mediastinum and Pau: There is a right hilar masslike consolidation. Calcified lymph nodes are noted in the subcarinal region. These are unchanged. Heart: Normal size. No pericardial effusion. Airways: There is narrowing of the segmental bronchi to the right upper chest. This is slightly worse. Lungs: Airspace opacities in the right upper lobe with a cavitary lesion measuring up to 5.3 cm in greatest dimension, similar to the prior exam. Slightly less soft tissue attenuating component is noted in the center of the cavitary lesion. There is platelike atelectasis emanating from the left hilum into the left upper lobe. This is unchanged. Pleura: There is a small right-sided pleural effusion adjacent to the right upper lobe, similar to the prior exam. Chest Wall: Within normal limits. Upper Abdomen: There is a 12 mm focus of hypoattenuation in the right hepatic lobe inferiorly which is unchanged compared to the prior exam. Bones: Degenerative changes are noted in the thoracic spine. CT/CT chest w con IMPRESSION: There is redemonstration of a similar cavitary lesion in the right upper lobe measuring 5.3 cm in greatest dimension with decreasing soft tissue component within the cavity. Slightly worse airspace opacity in the right upper chest adjacent to the cavitary lesion with interval narrowing of segmental bronchi to the right upper lobe and subsegmental branches of the pulmonary artery to the right upper lobe. Soft tissue fullness is redemonstrated in the right hilum similar to the prior exam. There is a similar small right-sided pleural effusion. There is similar platelike scarring in the left upper lobe emanating from the left hilum. Impression dictated by: Carlos Cavanaugh M.D.04/23/2022 1:26 PM Assessment and Plan - TNM Staging Staging: Stage IIIB right upper lobe (overlapping sites involving right mainstem bronchus). No distant metastatic disease on PET/CT for final staging. 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 No distant metastatic disease on PET/CT, therefore we coordinated chemoradiation with weekly carboplatin/paclitaxel. He commenced weekly Carboplatin/Paclitaxel with radiation on 08/06/2021 and today he will be receiving #6 Carboplatin/Paclitaxel and is scheduled to completed radiation therapy on 09/16/2021. 08/12/2021: No toxicities other than mild increase in creatinine. 08/27/2021: Grade 1 odynophagia with decreased appetite. Added sucralfate slurry 1 g every 6 hours as needed for remainder of chemoradiation. 09/10/2021: Grade 1 fatigue; otherwise no significant toxicities to chemotherapy; weight is stable; stable anemia. Normal electrolytes. Minimal nausea and no significant pain other than some acid reflux like symptoms; well controlled with Prilosec. --Patient completed Cycle 6 weekly Carboplatin/Paclitaxel therapy (09/10/2021) and radiotherapy to complete on 09/16/2021. ----- --- 09/24/2021: Reviewed informed consent for Durvalumab maintenance therapy 10mg/kg IV every 2 weeks x 1 year (ok to change to monthly therapy if well tolerated). 10/14/2021: Patient was sent to ER for right chest wall pain on 10/07 following first durvalumab dose 09/30/2021. Noted to have regression of prior right middle lobe lesion and adenopathy with small adjacent infiltrate (this may be postradiation change but patient was placed on antibiotics). His pain has now completely resolved with no significant cough. Otherwise tolerating immunotherapy well. We will continue him on every 2-week dosing until receivingwhether he has recurrent chest discomfort or symptoms on durvalumab. Next follow-up with me in 4 weeks for toxicity check on immunotherapy. We will not repeat his chest CT since this was just performed in emergency department. 01/22/2022: Patient is here for 3-month follow-up on durvalumab maintenance therapy. He has had recurrent episodes of chest wall pain and dyspnea, previously treated with antibiotics and subsequent steroids. He notes that his symptoms tend to worsen for about 1 to 2 weeks following his immunotherapy, usually beginning 2 to 3 days after therapy. I will give him a brief course of Medrol Dosepak with each cycle and he will have reassessment with nurse practitioner for toxicity visit next week to see if this prevents his cough and dyspnea symptoms. We reviewed his restaging CT chest which shows reduction in size of his cavitary lesion in the right hilum from 6.5 to 5.2 cm in greatest diameter. There are evolving postradiation changes consistent with his pneumonitis and interval development of trace right-sided pleural effusion. Next follow-up withme will be in [address] chest at that time, although he may follow-up sooner after his [employer] visit if he is having persistent pneumonitis. 02/17/2022: He has done very well with the Medrol Dosepak after Durvalumab infusion, and denies chest pain, cough or dyspnea at rest- overall near resolution of symptoms. We will continue with this plan and he will follow-up with Dr. Hess in [address], labs. He has no questions today and isin agreement with this plan. 05/05/2022: No new symptoms--stable dyspnea/cough and improved right chest discomfort with Medrol dose pack after each cycle. Restaging CT with decreasingsoft tissue component within cavitary lesion. Some surrounding ground glass opacities consistent with known pneumonitis in prior radiation field. Followup [address] Chest. Continue Medrol dose pack after each cycle. End of 1 year of maintenance durvalumab will be 08/2022. Mod complexity visit over 35 minutes to review restaging scans. (2) Drug-induced pneumonitis Recurrent pneumonitis as addressed above. Medrol Dosepak for 1 week following next durvalumab and reassessment with next practitioner to see if this alleviates his symptoms. 02/17/2022: see above. Near resolution of symptoms with addition of Medrol Dosepak. He is back to his baseline dyspnea on exertion only with increased activity 05/05/2022: Intermittent worsening of cough and dyspnea between cycles but much improved with medrol dose pack each cycle. (3) Encounter for antineoplastic immunotherapy No distant metastatic disease on PET/CT for staging (bilateral mediastinal and subcarinal adenopathy noted). Concurrent chemoradiation commenced 08/06/2021--Carboplatin AUC 2 IV and Paclitaxel 45mg/m2 IV weekly x 6-7 weeks. Tolerated well. He completed Cycle 6 weekly Carboplatin/Paclitaxel therapy 09/10/2021 and radiotherapy complete on 09/16/2021. Cycle 1 day 1 09/30/2021 durvalumab 10mg/kg IV every 2 weeks immunotherapy as noted above. Changing to flat dose durvalumab 1500 milligrams IV every 4 weeks with 11/23/2021 dose. He will complete 1 year of therapy 08/2022 if well-tolerated. 05/05/2022: Continue durvalumab 1500mg IV every 4 weeks in addition to Medrol Dosepak day after each infusion given improvement of pneumonitis symptoms. - Chemo Plan Chemo Plan (Dose, Rate, Freq): Concurrent chemoradiation with Carboplatin AUC 2 IV Day 1 and Paclitaxel 45mg/m2IV Day 1 weekly x 6-7 weeks. Durvalumab 10mg/kg IV every 2 week immunotherapy x2 months then 1500mg IV q 4weeks to complete 1 year of therapy. Goal of Treatment: Curative - Time with Patient Time Spent with Patient (Follow Up Visit): 35 minutes - moderate complexity for immunotherapy toxicity review and review of immunotherapy related pneumonitis, restaging scan. Coordination of Care & Counseling Time: Greater than 50% of time spent with patient was for coordination of care (as documented) and [id number] counseling of patient and/or family. Dictated By: Natacha Hess MD DD/ [id number] Signed By: <Electronically signed by MD Natacha Hess> 05/05/222015 [facility] Work Phone: [phone]) 757-124704-18-2022 Progress note Author Lesli Bateman [facility] March 01, 2022 3:27pm Note Date/Time September 10, 2021 1 0:32am [facility] [place] [place] [facility] at [address] [address] Hem/Onc Follow Up Note - OP Signed with Addenda Patient: Bert Yeung MR#: [id number] : 1950 Acct:[id number] Age/Sex: 70 / M Type: REG RCR Copies to: Howie Fulton MD~ ADDENDUM1 Please advise: Correction of Date of Service is 09/09/2021. Addendum Dictated By: LUISITO Bateman Addendum Signed By: 03/01/221526 Addendum Cosigned By: DD/ TD/TT: 03/01/22 Subjective Date/Time of Service: Date of Service: 09/10/2021 Time of Service: 10:28 Chief Complaint: Patient is here for a 2 week follow up with labs for review, prior to treatment today. No concerns voiced at this time. 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 He has tolerated his treatment exceptionally well and has had very few side effects/toxicities to therapy. He reports good appetite, stable weight.Essentially has no pain and has only required 4 doses of Zofran for breakthroughnausea. He has mild GERD-like symptoms, well controlled with Prilosec. Specifically denies any issues with headaches, fever/chills, cough, shortness of breath, bowel/bladder problems, peripheral neuropathy, skin rash or lower extremity edema. He will complete radiotherapy on Tuesday, September 16, 2021 and his last cycle (#6) weekly Carbo/Taxol will be given today. 08/27/2021: Here for week for follow-up of weekly carboplatin paclitaxel. Fatigue mildly increased with decreased appetite and minimal dysphagia but does not need to take additional medicine other than Tylenol for this. Otherwise no cough, dyspnea, fever, chills and no significant peripheral neuropathy. He willfollow-up in 2 weeks for chemoradiation toxicity visit with our nurse practitioner. I will then see him in 4 weeks after completion of chemoradiationand will discuss whether he gets consolidation carboplatin paclitaxel after restaging scan or continue with maintenance immunotherapy alone. 08/12/2021: Started concurrent chemoradiation with weekly Carboplatin/Paclitaxelone week ago. Tolerating well without cough, dyspnea, chest pain, bowel or bladder symptoms, or neuropathy. Will continue to follow every 2 weeks while onchemoradiation--likely candidate for one year immunotherapy with Imfinzi if response. 07/17/2021: This is a 70 yo male accompanied by his for new diagnosis of right upper lobe mass, wrapping around right mainstem bronchus, with associated mediastinal adenopathy. He apparently had right upper lobe pneumonia in 2019, no imaging since that time. He is a former smoker, prior 40 year history, quit about 18 years ago. About 1-2 months ago he had persistent nonproductive cough without hemoptysis. Increased dyspnea, but his notes he has had chronic dyspnea over the past 4 years. Slow nonquantified weight loss, decreased appetite, hoarseness, and mild right chest discomfort. CT Chest imaging at [facility] on 06/23/2021 showed a large lobulated mass of the superior segment of the right upper lobe extending to the hilum. There appears to be invasion of themass into the right mainstem bronchus. The mass measures approximately 5.5 x 7.6x 6.0 cm. There is a low density lesion in the liver that appears to be a cyst. 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 He does not have other significant comorbidities, prior malignancy, or known family history. We discussed that involvement of the right mainstem bronchus and mediastinum is consistent with likely Stage III lung cancer, but he needs a PET/CT to exclude liver metastases. If no distant metastatic disease on PET/CT, we will coordinate chemoradiation with weekly carboplatin/paclitaxel. I ordered PET/CT, radiation oncology consultation and reviewed informed consent for Carboplatin/Paclitaxel. I will see him the same day as Radiation Oncology consult to review PET/CT. He did signinformed consent today to expedite concurrent chemoradiation if no distant metastatic disease. We will also contact pathology to add PDL1 status--if metastatic disease, he may be a candidate for immunotherapy +/- chemotherapy. Today we reviewed chemotherapy counseling for weekly Carboplatin and Paclitaxel. Goal of therapy is curative if stage III. Common toxicities were reviewed to include infusion reactions/allergic reactions, myelosuppression, fatigue, nausea, vomiting, constipation, diarrhea, mouth sores, and alopecia. Other toxicities may include pneumonitis, neurologic, hepatic and renal toxicities. Risk of secondary malignancy due to effects of chemotherapy on bone marrow. The patient signed informed consent and will follow-up as directed. - Summary of Therapies Summary of Therapies: 08/06/2021: Commenced concurrent chemoradiation with Carboplatin AUC 2 IV Day 1 and Paclitaxel 45mg/m2 IV Day 1 weekly x 6 cycles. Last cycle chemotherapy: 09/10/2021 Last day of radiation: 09/16/2021 - May receive full dose Carboplatin AUC 6 and Paclitaxel 175-200mg/m2 IV x 2 doses then immunotherapy x 1 year if good response ROS Details: All systems reviewed & no additional complaints except as documented Subjective/ROS - Narrative: CONSTITUTIONAL: Positive for fatigue, negative for fever or night sweats. HEAD AND NECK: Negative for changes in hearing and vision. Negative for mouth ulcers, nasal congestion and nasal drainage. PULMONARY: Positive for mild right chest pain, persistent cough, hoarseness, anddyspnea on exertion. CARDIOVASCULAR: Negative for claudication and irregular heartbeat/palpitations. No edema. GASTROINTESTINAL: Negative for abdominal pain, constipation, diarrhea, nausea, or vomiting. Positive for decreased appetite and dysphagia/mild odynophagia as per HPI. GENITOURINARY: Negative for dysuria and hematuria. + h/o nephrolithiasis. ENDOCRINE: Negative for cold intolerance and heat intolerance. CENTRAL NERVOUS SYSTEM: Negative for gait disturbance and headache. No history of stroke. PSYCHIATRIC: Negative for anxiety or depression. DERMATOLOGICAL: Negative for pruritus and rash. Negative for suspicious skin lesions. MUSCULOSKELETAL: Negative for back pain and bone/joint symptoms. HEMATOLOGICAL: Negative for bleeding and easy bruising. Negative for history of transfusion or thromboembolic disease ALLERGY: Negative for environmental allergies and food allergies. PMFSH - Medical History Medical History: Medical History (Last Reviewed 09/10/21 @ 10:33 by Lesli Bateman APRN) Cough Hyperlipidemia Hypertensive heart disease Kidney stone Lung mass Shortness of breath - Surgical History Surgical History: Surgical History (Last Reviewed 09/10/21 @ 10:33 by Lesli Bateman APRN) History of carpal tunnel release History of neck surgery - Family History Family History: Family History (Last Reviewed 09/10/21 @ 10:33 by Lesil Bateman APRN) Father Heart disease Mother Diabetes Hypertension Sister Cancer - Social History Smoking Status: Former smoker Substance Use Type: None Home Medications & Allergies Allergies No Known Drug Allergies Allergy (Unknown, Verified 09/10/21 09:27) none Home Medications simvastatin 40 mg tablet (Zocor) 40 mg PO DAILY 02/26/18 [History Confirmed 09/10/21] aspirin 81 mg chewable tablet 81 mg PO DAILY #0 tab 02/27/18 [Rx Confirmed 09/10/21] hydrochlorothiazide 25 mg tablet 25 mg PO DAILY 30 Days #30 tab 02/27/18 [Rx Confirmed 09/10/21] carvedilol 3.125 mg tablet 3.125 mg PO Q12H 07/17/21 [History Confirmed 09/10/21] losartan 25 mg tablet 25 mg PO DAILY 07/17/21 [History Confirmed 09/10/21] ondansetron HCl 8 mg tablet 8 mg PO Q8H PRN #30 tab 08/05/21 [Rx Confirmed 09/10/21] hyaluronic xgogfq-veazancnc-dkiz vera extract topical gel (RadiaPlexRx) 1 applicTOPICAL TID 08/25/21 [History Confirmed 09/10/21] hydrocortisone 1 % topical cream 1 applic TOPICAL TID 08/25/21 [History Confirmed 09/10/21] ibuprofen-diphenhydramine citrate 200 mg-38 mg tablet (Advil PM) 2 cap PO QHS 08/27/21 [History Confirmed 09/10/21] sucralfate 100 mg/mL oral suspension 5 ml PO QID 30 Days #600 ml 08/27/21 [Rx Confirmed 09/10/21] omeprazole magnesium 20 mg tablet,delayed release (Prilosec OTC) 20 mg PO DAILY 09/10/21 [History Confirmed 09/10/21] Objective - Resuscitation Status Resuscitation Status: Full Code - Height/Weight Height/Weight: Height 5 ft 10 in Weight 115.076 kg BSA for Today's Weight 2.38 - Vital Signs Vital Signs: 09/10/21 09:27 Temperature 98.1 F Pulse Rate [Left Brachial] 79 Respiratory Rate 20 Blood Pressure [Left Arm] 158/91 H 02 Sat by Pulse Oximetry 98 - Pain Right Chest Pain Intensity: 2 - Distress Screening Distress Screen Results: RN Distress Screening Start: 07/17/21 11:07 Freq: Status: Active Protocol: Document 09/01/21 09:44 DB (Rec: 09/01/21 09:45 DB [id number]) Distress Screening Distress Score: 2 Emotional Concerns Feeling uncertain about the future Distress Screening Total 2 Physical Exam Narrative: CONSTITUTIONAL: The patient is in no acute distress. HEAD / FACE: Normocephalic; atraumatic, no scleral icterus. EYES: Pupils are equal and reactive to light. Conjunctivae and lids are benign in appearance. Ocular movement intact. EARS: Hearing grossly intact. NOSE / MOUTH / THROAT: Nose, mouth, tongue and oropharynx are benign in appearance. No signs of inflammation. NECK / THYROID: Neck is supple. Thyroid is symmetrical, without thyromegaly, masses or palpable nodules. LYMPHATIC: No palpable cervical, supraclavicular, axillary, or inguinal adenopathy. RESPIRATORY: Normal to inspection. Lungs--clear to auscultation bilaterally; no wheezes/crackles. CARDIOVASCULAR: Regular rate and rhythm. No murmurs, gallops, or rubs. VASCULAR: Carotid, radial, femoral and pedal pulses present bilaterally. No bruits. ABDOMEN: Bowel sounds normoactive. Soft, nontender and non-distended. No hepatosplenomegaly. No masses. GENITOURINARY: No CVA tenderness. INTEGUMENTARY: The skin is unremarkable. No rashes. No suspicious lesions BACK / SPINE: The back is nontender. MUSCULOSKELETAL: Normal musculature, no joint deformities or abnormalities, normal range of motion for all four extremities. EXTREMITIES: No edema, cyanosis or clubbing. No Nigel sign. NEUROLOGICAL: Alert and oriented. Cranial nerves intact. No gross motor or sensory deficits. Ambulates independently. PSYCHIATRIC: No anxiety or evidence of depression. - ECOG Performance Status ECOG Score: 1 Results - Labs Labs: Diagram of Most Recent CBC and CMP 09/09/21 09:21 09/09/21 09:21 Labs - Last 7 Days 09/09/21 09:21: PHA Creatinine Clear 85.45, Sodium 138, Potassium 4.3, Chloride 102, Carbon Dioxide 27.1, BUN 14, Creatinine 1.05, Est GFR ( Amer) > 60, Est GFR (Non-Af Amer) > 60, Glucose 114 H, Calcium 9.4, Total Bilirubin 0.3, AST16, ALT 22, Alkaline Phosphatase 50, Total Protein 6.5, Albumin 3.2, Globulin 3.3, Albumin/Globulin Ratio 1.0 09/09/21 09:21: Corrected WBC 4.4, Uncorrected WBC Count 4.4 L, RBC 4.15, Hgb 11.7 L, Hct 35.5 L, MCV 85.4, MCH 28.1, MCHC 32.9, RDW 15.7 H, Plt Count 313, MPV 6.7, Neut % (Auto) 79.3, Lymph % (Auto) 7.7, [place] % (Auto) 12.0, Eos % (Auto) 0.8, Baso % (Auto) 0.2, Neut # (Auto) 3.5, Lymph # (Auto) 0.3 L, [place] # (Auto) 0.5, Eos # (Auto) 0.0, Baso # (Auto) 0.0, Nucleated RBC % (auto) 0.0 Assessment and Plan - TNM Staging Staging: Stage IIIB right upper lobe (overlapping sites involving right mainstem bronchus). No distant metastatic disease on PET/CT for final staging. 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 No distant metastatic disease on PET/CT, therefore we coordinated chemoradiation with weekly carboplatin/paclitaxel. He commenced weekly Carboplatin/Paclitaxel with radiation on 08/06/2021 and today he will be receiving #6 Carboplatin/Paclitaxel and is scheduled to completed radiation therapy on 09/16/2021. 08/12/2021: No toxicities other than mild increase in creatinine. 08/27/2021: Grade 1 odynophagia with decreased appetite. Added sucralfate slurry 1 g every 6 hours as needed for remainder of chemoradiation. 09/10/2021: Grade 1 fatigue; otherwise no significant toxicities to chemotherapy; weight is stable; stable anemia. Normal electrolytes. Minimal nausea and no significant pain other than some acid reflux like symptoms; well controlled with Prilosec. Patient to completed Cycle 6 weekly Carboplatin/Paclitaxel therapy today (09/10/2021) and radiotherapy to complete on 09/16/2021. Follow up with Dr. Hess in ~ 2 weeks to discuss restaging, plans for consolidation chemotherapy with Carboplatin/Paclitaxel x 2 cycles and immunotherapy x 1 year; pending treatment response. (2) Radiation-induced esophagitis Mild odynophagia and decreased appetite treated with sucralfate 3 every 6 hours as noted above and addition of Prilosec 20 mg OTC (3) Encounter for chemotherapy management Informed consent signed for carboplatin/paclitaxel weekly. No distant metastatic disease on PET/CT for staging (bilateral mediastinal and subcarinal adenopathynoted). Concurrent chemoradiation commenced 08/06/2021--Carboplatin AUC 2 IV andPaclitaxel 45mg/m2 IV weekly x 6-7 weeks. Tolerating well. Patient to completed Cycle 6 weekly Carboplatin/Paclitaxel therapy today (09/10/2021) and radiotherapy to complete on 09/16/2021. Follow up with Dr. Hess in ~ 2 weeks to discuss restaging, plans for consolidation chemotherapy with Carboplatin/Paclitaxel x 2 cycles and immunotherapy x 1 year; pending treatment response. - Chemo Plan Chemo Plan (Dose, Rate, Freq): Concurrent chemoradiation with Carboplatin AUC 2 IV Day 1 and Paclitaxel 45mg/m2IV Day 1 weekly x 6-7 weeks. May receive full dose Carboplatin AUC 6 and Paclitaxel 175-200mg/m2 IV x 2 doses then immunotherapy x 1 year Goal of Treatment: Curative - Time with Patient Time Spent with Patient (Follow Up Visit): 25 minutes - moderate complexity for chemotherapy toxicity visit Coordination of Care & Counseling Time: Greater than 50% of time spent with patient was for coordination of care (as documented) and [id number] counseling of patient and/or family. Dictated By: Lesli Bateman APRN DD/ [id number] Signed By: <Electronically signed by LUISITO Bateman> 09/10/21 1046 [facility] Work Phone: 1(667) 581-903304-06-2022 Progress note Author Mia Eisenberg [facility] February 17, 2022 2:15pm Note Date/Time February 17, 2022 10:[address] [facility] [place] [place] [facility] at [place] [id number] Hem/Onc Follow Up Note - OP Signed Patient: Bert Yeung MR#: [id number] : 1950 Acct:[id number] Age/Sex: 71 / M Type: REG RCR Copies to: MD Howie Garner MD~ Subjective Date/Time of Service: Date of Service: 02/17/2022 Time of Service: 10:30 Chief Complaint: Patient is here for a one month follow up with labs for review prior to treatment today. States he is short of breath on exertion and that windtakes his breath away. Patient also reports still having a dry cough. No other concerns. HPI: 02/17/2022: Bert presents today to evaluate symptoms. He previously noted significant dyspnea and cough with his durvalumab, so he was given a Medrol Dosepak to start 1 day after durvalumab treatment. He states after this cycle, he noticed a significant improvement in his symptoms with initiation of the dosepak and denies any dyspnea at rest or around the house after treatment. He still has dyspnea on exertion when he's more active, but this is mild now and more his baseline. He continues to deny other symptoms such as rash, abdominal pain or diarrhea. Labs are reviewed and remain stable. We will continue with durvalumab + medrol dosepak every 4 weeks, and will plan for follow-up in [address] Hess. He will call sooner if his symptoms worsen or new symptoms develop. 01/21/2022: Bert presents for durvalumab immunotherapy today. He notes that with prior cycles he has had recurrent dyspnea and cough that is treated with steroids with some improvement about 1 week prior to his next cycle. He now notes that his shortness of breath is at baseline. He has otherwise not had anyother symptoms such as diarrhea, skin rash, or abdominal pain and his labs remained stable. 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 We discussed 1 more cycle durvalumab and I will give him a Medrol Dosepak to start 1 day after his durvalumab dose to see if we can preempt his inflammatory reaction. If he does not tolerate his durvalumab well we may consider stopping maintenance immunotherapy early. He is in agreement with thisplan. Next toxicity visit within 1 month. 12/23/2021: Bert presents today with his for follow-up for his lung cancer. He states he is feeling better finally today after the past 2 weeks with pneumonia. He finished his antibiotic yesterday. He is still short of breath, but this is somewhat improved. He continues with cough but denies chest pain, fever or chills. He is tolerating durvalumab well- no diarrhea, skin rash or abdominal pain. Labs reviewed and ok for treatment. We will have him get a chestXR prior to treatment today and will plan his re-staging CT scan for 2-3 weeks with follow-up after. He will continue monthly durvalumab unless he progresses, has a pneumonitis or other new symptoms of toxicity arise. 11/11/2021: Bert presents with his for follow-up. His severe right-sided chest pain and dyspnea has now completely resolved from last visit. He has not had any suggestive toxicities from durvalumab--no diarrhea, skin rashes, or recurrent dyspnea. He has returned to normal performance status and denies any fatigue. We reviewed his laboratories showing no immunotherapy related endocrine toxicities. Since he is now at normal baseline, I will give his 2-week dosing of durvalumab today then change to every 4-week dosing. His next follow-up with me will be in 6 weeks and he will have restaging CT chest in late December unless new symptoms arise. 10/14/2021: Bert was sent to ER 1 week ago (10/07/2021) after presenting with severe right-sided chest pain for about 1 week. He did not report worsening with inspiration but was worse with eating. Chest CT showed regression of priorright middle lobe tumor with internal necrosis and regression of prior adenopathy. There was an infiltrate posterior to his mass and no evidence of pulmonary embolism. He completed a course of azithromycin and notes that his chest pain is now completely resolved. He has no dyspnea with exertion or cough. Otherwise tolerated initial Durvalumab dose well--few loose stools the evening of his dose but no anny diarrhea, no skin rashes, and laboratories are stable. He also notes that Dr. Smith recommended starting N-acetylcysteine supplementation for his immunity, however I asked him to hold this for now sincehe has only recently started durvalumab and I will research whether this is indicated with his immunotherapy. --We will continue every 2-week durvalumab to see if he has any further toxicities, then follow-up in 1 month. If well-tolerated we will change to every 4-week dosing. 09/24/2021: Bert presents with his to discuss commencing immunotherapy after completing 6 weeks of concurrent chemoradiation (last dose chemo 09/10, last radiation 09/16). Fatigue improved but he has had 3 episodes of epistaxis over the past week (longest lasting about 6-7 minutes). Improved with saline nasal spray--offered ENT eval but he wants to observe. Mild dyspnea on exertionand cough. Today we discussed immunotherapy maintenance with Durvalumab over one year (initially every 2 weeks, then every 4 weeks if well tolerated). Goal of therapy is curative. Today we reviewed immunotherapy (checkpoint inhibitor) counseling for Durvalumab. Common toxicities were reviewed to include infusion reactions and allergic reactions, fatigue, skin rashes, visual and ocular toxicities, diarrhea, abdominal pain from pancreatitis, and abnormal thyroid, adrenal, and pituitary function. Other toxicities may include pneumonitis, sexual side effects, neurologic, hepatic and renal toxicities. The patient signed informed consent and will follow-up as directed. I will see him C2D1 durvalumab for tox check. 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 He has tolerated his treatment exceptionally well and has had very few side effects/toxicities to therapy. He reports good appetite, stable weight.Essentially has no pain and has only required 4 doses of Zofran for breakthroughnausea. He has mild GERD-like symptoms, well controlled with Prilosec. Specifically denies any issues with headaches, fever/chills, cough, shortness ofbreath, bowel/bladder problems, peripheral neuropathy, skin rash or lower extremity edema. --He will complete radiotherapy on Tuesday, September 16, 2021 and his last cycle (#6) weekly Carbo/Taxol will be given today. 08/27/2021: Here for week for follow-up of weekly carboplatin paclitaxel. Fatigue mildly increased with decreased appetite and minimal dysphagia but does not need to take additional medicine other than Tylenol for this. Otherwise no cough, dyspnea, fever, chills and no significant peripheral neuropathy. He willfollow-up in 2 weeks for chemoradiation toxicity visit with our nurse practitioner. I will then see him in 4 weeks after completion of chemoradiationand will discuss whether he gets consolidation carboplatin paclitaxel after restaging scan or continue with maintenance immunotherapy alone. 08/12/2021: Started concurrent chemoradiation with weekly Carboplatin/Paclitaxelone week ago. Tolerating well without cough, dyspnea, chest pain, bowel or bladder symptoms, or neuropathy. Will continue to follow every 2 weeks while onchemoradiation--likely candidate for one year immunotherapy with Imfinzi if response. 07/17/2021: This is a 70 yo male accompanied by his for new diagnosis of right upper lobe mass, wrapping around right mainstem bronchus, with associated mediastinal adenopathy. He apparently had right upper lobe pneumonia in 2019, no imaging since that time. He is a former smoker, prior 40 year history, quit about 18 years ago. About 1-2 months ago he had persistent nonproductive cough without hemoptysis. Increased dyspnea, but his notes he has had chronic dyspnea over the past 4 years. Slow nonquantified weight loss, decreased appetite, hoarseness, and mild right chest discomfort. CT Chest imaging at [facility] on 06/23/2021 showed a large lobulated mass of the superior segment of the right upper lobe extending to the hilum. There appears to be invasion of themass into the right mainstem bronchus. The mass measures approximately 5.5 x 7.6x 6.0 cm. There is a low density lesion in the liver that appears to be a cyst. 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 He does not have other significant comorbidities, prior malignancy, or known family history. We discussed that involvement of the right mainstem bronchus and mediastinum is consistent with likely Stage III lung cancer, but he needs a PET/CT to exclude liver metastases. If no distant metastatic disease on PET/CT, we will coordinate chemoradiation with weekly carboplatin/paclitaxel. I ordered PET/CT, radiation oncology consultation and reviewed informed consent for Carboplatin/Paclitaxel. I will see him the same day as Radiation Oncology consult to review PET/CT. He did sign informed consent today to expedite concurrent chemoradiation if no distant metastatic disease. We will also contact pathology to add PDL1 status--if metastatic disease, he may be a candidate for immunotherapy +/- chemotherapy. Today we reviewed chemotherapy counseling for weekly Carboplatin and Paclitaxel. Goal of therapy is curative if stage III. Common toxicities were reviewed to include infusion reactions/allergic reactions, myelosuppression, fatigue, nausea, vomiting, constipation, diarrhea, mouth sores, and alopecia. Other toxicities may include pneumonitis, neurologic, hepatic and renal toxicities. Risk of secondary malignancy due to effects of chemotherapy on bone marrow. Thepatient signed informed consent and will follow-up as directed. - Summary of Therapies Summary of Therapies: 08/06/2021: Commenced concurrent chemoradiation with Carboplatin AUC 2 IV Day 1 and Paclitaxel 45mg/m2 IV Day 1 weekly x 6 cycles. He was started on concurrent chemoradiotherapy treatment and received a dose of 6000 cGy to the right upper lobe mass and mediastinal nodes (bilateral) in 30 fractions from 08/06/2021 to 09/16/2021 over 41 elapsed days. Last cycle chemotherapy: 09/10/2021 - 09/30/2021: Cycle 1, Day 1 Durvalumab 10mg/kg IV every 2 weeks immunotherapy x 1 year. After 11/11/2021 2-week dose, changed to flat dose 1500 mg IV every 4-week dosing to complete 1 year of adjuvant immunotherapy. ROS Details: All systems reviewed & no additional complaints except as documented PMF - Medical History Medical History: Medical History (Last Reviewed 01/21/22 @ 09:34 by Natacha Hess MD) Cough Hyperlipidemia Hypertensive heart disease Kidney stone Lung mass Shortness of breath - Surgical History Surgical History: Surgical History (Last Reviewed 01/21/22 @ 09:34 by Natacha Hess MD) History of carpal tunnel release History of neck surgery - Family History Family History: Family History (Last Reviewed 01/21/22 @ 09:34 by Natacha Hess MD) Father Heart disease Mother Diabetes Hypertension Sister Cancer - Social History Smoking Status: Former smoker Substance Use Type: None Home Medications & Allergies Allergies No Known Drug Allergies Allergy (Unknown, Verified 02/17/22 09:58) none Home Medications simvastatin 40 mg tablet (Zocor) 40 mg PO DAILY 02/26/18 [History Confirmed 02/17/22] aspirin 81 mg chewable tablet 81 mg PO DAILY #0 tab 02/27/18 [Rx Confirmed 02/17/22] hydrochlorothiazide 25 mg tablet 25 mg PO DAILY 30 Days #30 tab 02/27/18 [Rx Confirmed 02/17/22] carvedilol 3.125 mg tablet 3.125 mg PO Q12H 07/17/21 [History Confirmed 02/17/22] losartan 25 mg tablet 25 mg PO DAILY 07/17/21 [History Confirmed 02/17/22] ondansetron HCl 8 mg tablet 8 mg PO Q8H PRN #30 tab 08/05/21 [Rx Confirmed 02/17/22] hyaluronic rvhcmc-nsabbkkse-mgly vera extract topical gel (RadiaPlexRx) 1 applicTOPICAL TID 08/25/21 [History Confirmed 02/17/22] hydrocortisone 1 % topical cream 1 applic TOPICAL TID 08/25/21 [History Confirmed 02/17/22] hyaluronic nvgbaw-dpodjvzfu-axcl vera extract topical gel (RadiaPlexRx) 1 applicTOPICAL TID 09/15/21 [History Confirmed 02/17/22] oxycodone-acetaminophen 5 mg-325 mg tablet (Percocet) 1 tab PO Q4-6H PRN 09/15/21 [History Confirmed 02/17/22] docusate sodium 100 mg capsule (Colace) 200 mg PO QHS 01/21/22 [History Confirmed 02/17/22] methylprednisolone 4 mg tablets in a dose pack (Medrol (Cb)) 4 mg PO DIRECTED #1 packet 02/17/22 [Rx] Objective - Height/Weight Height/Weight: Height 5 ft 10 in Weight 116 kg BSA for Today's Weight 2.39 - Vital Signs Vital Signs: 02/17/22 09:59 Temperature 97.9 F Pulse Rate [Left Brachial] 78 Respiratory Rate 20 Blood Pressure [Right Arm] 130/63 02 Sat by Pulse Oximetry 97 - Pain Right Chest Pain Intensity: 4 - Distress Screening Distress Screen Results: RN Distress Screening Start: 07/17/21 11:07 Freq: Status: Complete Protocol: Document 09/01/21 09:44 DB (Rec: 09/01/21 09:45 DB [id number]) Distress Screening Distress Score: 2 Emotional Concerns Feeling uncertain about the future Distress Screening Total 2 Physical Exam Narrative: CONSTITUTIONAL: The patient is in no acute distress. HEAD / FACE: Normocephalic; atraumatic, no scleral icterus. EYES: Pupils are equal and reactive to light. Conjunctivae and lids are benign in appearance. Ocular movement intact. EARS: Hearing grossly intact. NOSE / MOUTH / THROAT: Nose, mouth, tongue and oropharynx are benign in appearance. No signs of inflammation. NECK / THYROID: Neck is supple. Thyroid is symmetrical, without thyromegaly, masses or palpable nodules. LYMPHATIC: No palpable cervical, supraclavicular, axillary, or inguinal adenopathy. RESPIRATORY: Normal to inspection. Lungs clear to auscultation bilaterally; no wheezes, rhonchi or rales. Nonlabored respirations CARDIOVASCULAR: Regular rate and rhythm. No murmurs, gallops, or rubs. VASCULAR: Carotid, radial, femoral and pedal pulses present bilaterally. No bruits. ABDOMEN: Bowel sounds normoactive. Soft, nontender and non-distended. No hepatosplenomegaly. No masses. INTEGUMENTARY: The skin is unremarkable. No rashes. No suspicious lesions MUSCULOSKELETAL: Normal musculature, no joint deformities or abnormalities, normal range of motion for all four extremities. EXTREMITIES: No edema, cyanosis or clubbing. NEUROLOGICAL: Alert and oriented. Cranial nerves intact. No gross motor or sensory deficits. Ambulates independently. PSYCHIATRIC: No anxiety or evidence of depression. Results - Labs Labs: Diagram of Most Recent CBC and CMP 02/16/22 16:49 02/16/22 16:49 Labs - Last 7 Days 02/16/22 16:49: PHA Creatinine Clear 77.89, Sodium 139, Potassium 3.2 L, Chloride 100, Carbon Dioxide 27.4, BUN 13, Creatinine 1.14, Est GFR ( Amer) > 60, Est GFR (Non-Af Amer) > 60, Glucose 96, Calcium 9.5, Total Bilirubin0.8, AST 21, ALT 24, Alkaline Phosphatase 55, Total Protein 6.5, Albumin 3.5, Globulin 3.0, Albumin/Globulin Ratio 1.2 02/16/22 16:49: Corrected WBC 10.4, Uncorrected WBC Count 10.4, RBC 4.45, Hgb 12.2 L, Hct 37.2 L, MCV 83.7, MCH 27.5, MCHC 32.9, RDW 18.8 H, Plt Count 361, MPV 7.5, Neut % (Auto) 72.0, Lymph % (Auto) 11.9, [place] % (Auto) 13.6, Eos % (Auto) 2.2, Baso % (Auto) 0.3, Neut # (Auto) 7.5, Lymph # (Auto) 1.2, [place] # (Auto) 1.4 H, Eos # (Auto) 0.2, Baso # (Auto) 0.0, Nucleated RBC % (auto) 0.0 02/16/22 16:49: Free T4 0.67, TSH 3rd Generation 1.43, Total Cortisol 4.1 Assessment and Plan - TNM Staging Staging: Stage IIIB right upper lobe (overlapping sites involving right mainstem bronchus). No distant metastatic disease on PET/CT for final staging. 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 No distant metastatic disease on PET/CT, therefore we coordinated chemoradiation with weekly carboplatin/paclitaxel. He commenced weekly Carboplatin/Paclitaxel with radiation on 08/06/2021 and today he will be receiving #6 Carboplatin/Paclitaxel and is scheduled to completed radiation therapy on 09/16/2021. 08/12/2021: No toxicities other than mild increase in creatinine. 08/27/2021: Grade 1 odynophagia with decreased appetite. Added sucralfate slurry 1 g every 6 hours as needed for remainder of chemoradiation. 09/10/2021: Grade 1 fatigue; otherwise no significant toxicities to chemotherapy; weight is stable; stable anemia. Normal electrolytes. Minimal nausea and no significant pain other than some acid reflux like symptoms; well controlled with Prilosec. --Patient completed Cycle 6 weekly Carboplatin/Paclitaxel therapy (09/10/2021) and radiotherapy to complete on 09/16/2021. 09/24/2021: Reviewed informed consent for Durvalumab maintenance therapy 10mg/kg IV every 2 weeks x 1 year (ok to change to monthly therapy if well tolerated). 10/14/2021: Patient was sent to ER for right chest wall pain on 10/07 following first durvalumab dose 09/30/2021. Noted to have regression of prior right middle lobe lesion and adenopathy with small adjacent infiltrate (this may be postradiation change but patient was placed on antibiotics). His pain has now completely resolved with no significant cough. Otherwise tolerating immunotherapy well. We will continue him on every 2-week dosing until receiving whether he has recurrent chest discomfort or symptoms on durvalumab. Next follow-up with me in 4 weeks for toxicity check on immunotherapy. We will not repeat his chest CT since this was just performed in emergency department. 01/22/2022: Patient is here for 3-month follow-up on durvalumab maintenance therapy. He has had recurrent episodes of chest wall pain and dyspnea, previously treated with antibiotics and subsequent steroids. He notes that his symptoms tend to worsen for about 1 to 2 weeks following his immunotherapy, usually beginning 2 to 3 days after therapy. I will give him a brief course of Medrol Dosepak with each cycle and he will have reassessment with nurse practitioner for toxicity visit next week to see if this prevents his cough and dyspnea symptoms. We reviewed his restaging CT chest which shows reduction in size of his cavitary lesion in the right hilum from 6.5 to 5.2 cm in greatest diameter. There are evolving postradiation changes consistent with his pneumonitis and interval development of trace right-sided pleural effusion. Next follow-up with me will be in [address] chest at that time, although he may follow-up sooner after his [employer] visit if he is having persistent pneumonitis. 02/17/2022: He has done very well with the Medrol Dosepak after Durvalumab infusion, and denies chest pain, cough or dyspnea at rest- overall near resolution of symptoms. We will continue with this plan and he will follow-up with Dr. Hess in [address], labs. He has no questions today and isin agreement with this plan. (2) Drug-induced pneumonitis Recurrent pneumonitis as addressed above. Medrol Dosepak for 1 week following next durvalumab and reassessment with next practitioner to see if this alleviates his symptoms. 02/17/2022: see above. Near resolution of symptoms with addition of Medrol Dosepak. He is back to his baseline dyspnea on exertion only with increased activity (3) Encounter for antineoplastic immunotherapy No distant metastatic disease on PET/CT for staging (bilateral mediastinal and subcarinal adenopathy noted). Concurrent chemoradiation commenced 08/06/2021--Carboplatin AUC 2 IV and Paclitaxel 45mg/m2 IV weekly x 6-7 weeks. Tolerated well. He completed Cycle 6 weekly Carboplatin/Paclitaxel therapy 09/10/2021 and radiotherapy complete on 09/16/2021. Cycle 1 day 1 09/30/2021 durvalumab 10mg/kg IV every 2 weeks immunotherapy as noted above. Changing to flat dose durvalumab 1500 milligrams IV every 4 weeks with 11/23/2021 dose. He will complete 1 year of therapy if well-tolerated. Follow up with nurse practitioner in ~1 week after durvalumab with Medrol Dosepak to treat post immunotherapy pneumonitis to review immunotherapy toxicities. 02/17/2022: Continue durvalumab 1500mg IV every 4 weeks in addition to Medrol Dosepak day after each infusion given resolution of pneumonitis symptoms. - Chemo Plan Chemo Plan (Dose, Rate, Freq): Concurrent chemoradiation with Carboplatin AUC 2 IV Day 1 and Paclitaxel 45mg/m2IV Day 1 weekly x 6-7 weeks. Durvalumab 10mg/kg IV every 2 week immunotherapy x2 months then 1500mg IV q 4weeks to complete 1 year of therapy. Goal of Treatment: Curative - Time with Patient Time Spent with Patient (Follow Up Visit): 35 minutes - moderate complexity for immunotherapy toxicity review and review of immunotherapy related pneumonitis, restaging scan. Coordination of Care & Counseling Time: Greater than 50% of time spent with patient was for coordination of care (as documented) and [id number] counseling of patient and/or family. Dictated By: Mia Eisenberg APRN DD/ 1030 Signed By: <Electronically signed by LUISITO Eisenberg> 02/17/22 [id number] [facility] Work Phone: [phone]) 909-451503-11-2022 Progress note Author Natacha Hess [facility] January 22, 2022 5:23pm Note Date/Time January 21, 2022 9:3 [facility] [place] [facility] [address] [address] Hem/Onc Follow Up Note - OP Signed Patient: Bert Yeung MR#: [id number] : 1950 Acct:[id number] Age/Sex: 71 / M Type: REG RCR Copies to: Howie Fulton MD~ Subjective Date/Time of Service: Date of Service: 01/21/2022 Time of Service: 09:33 Chief Complaint: Patient here for 3 month radiation follow up. Pt will see Dr. Hess today as well. Pt remains SOB at times, but states breathing is improving. HPI: 01/21/2022: Bert presents for durvalumab immunotherapy today. He notes that with prior cycles he has had recurrent dyspnea and cough that is treated with steroids with some improvement about 1 week prior to his next cycle. He now notes that his shortness of breath is at baseline. He has otherwise not had anyother symptoms such as diarrhea, skin rash, or abdominal pain and his labs remained stable. 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 We discussed 1 more cycle durvalumab and I will give him a Medrol Dosepak to start 1 day after his durvalumab dose to see if we can preempt his inflammatory reaction. If he does not tolerate his durvalumab well we may consider stopping maintenance immunotherapy early. He is in agreement with thisplan. Next toxicity visit within 1 month. 12/23/2021: Bert presents today with his for follow-up for his lung cancer. He states he is feeling better finally today after the past 2 weeks with pneumonia. He finished his antibiotic yesterday. He is still short of breath, but this is somewhat improved. He continues with cough but denies chest pain, fever or chills. He is tolerating durvalumab well- no diarrhea, skin rash or abdominal pain. Labs reviewed and ok for treatment. We will have him get a chestXR prior to treatment today and will plan his re-staging CT scan for 2-3 weeks with follow-up after. He will continue monthly durvalumab unless he progresses, has a pneumonitis or other new symptoms of toxicity arise. 11/11/2021: Bert presents with his for follow-up. His severe right-sided chest pain and dyspnea has now completely resolved from last visit. He has not had any suggestive toxicities from durvalumab--no diarrhea, skin rashes, or recurrent dyspnea. He has returned to normal performance status and denies any fatigue. We reviewed his laboratories showing no immunotherapy related endocrine toxicities. Since he is now at normal baseline, I will give his 2-week dosing of durvalumab today then change to every 4-week dosing. His next follow-up with me will be in 6 weeks and he will have restaging CT chest in lateFebruary unless new symptoms arise. 10/14/2021: Bert was sent to ER 1 week ago (10/07/2021) after presenting with severe right-sided chest pain for about 1 week. He did not report worsening with inspiration but was worse with eating. Chest CT showed regression of priorright middle lobe tumor with internal necrosis and regression of prior adenopathy. There was an infiltrate posterior to his mass and no evidence of pulmonary embolism. He completed a course of azithromycin and notes that his chest pain is now completely resolved. He has no dyspnea with exertion or cough. Otherwise tolerated initial Durvalumab dose well--few loose stools the evening of his dose but no anny diarrhea, no skin rashes, and laboratories are stable. He also notes that Dr. Smith recommended starting N-acetylcysteine supplementation for his immunity, however I asked him to hold this for now sincehe has only recently started durvalumab and I will research whether this is indicated with his immunotherapy. --We will continue every 2-week durvalumab to see if he has any further toxicities, then follow-up in 1 month. If well-tolerated we will change to every 4-week dosing. 09/24/2021: Bert presents with his to discuss commencing immunotherapy after completing 6 weeks of concurrent chemoradiation (last dose chemo 09/10, last radiation 09/16). Fatigue improved but he has had 3 episodes of epistaxis over the past week (longest lasting about 6-7 minutes). Improved with saline nasal spray--offered ENT eval but he wants to observe. Mild dyspnea on exertionand cough. Today we discussed immunotherapy maintenance with Durvalumab over one year (initially every 2 weeks, then every 4 weeks if well tolerated). Goal of therapy is curative. Today we reviewed immunotherapy (checkpoint inhibitor) counseling for Durvalumab. Common toxicities were reviewed to include infusion reactions and allergic reactions, fatigue, skin rashes, visual and ocular toxicities, diarrhea, abdominal pain from pancreatitis, and abnormal thyroid, adrenal, and pituitary function. Other toxicities may include pneumonitis, sexual side effects, neurologic, hepatic and renal toxicities. The patient signed informed consent and will follow-up as directed. I will see him C2D1 durvalumab for tox check. 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 He has tolerated his treatment exceptionally well and has had very few side effects/toxicities to therapy. He reports good appetite, stable weight.Essentially has no pain and has only required 4 doses of Zofran for breakthroughnausea. He has mild GERD-like symptoms, well controlled with Prilosec. Specifically denies any issues with headaches, fever/chills, cough, shortness ofbreath, bowel/bladder problems, peripheral neuropathy, skin rash or lower extremity edema. --He will complete radiotherapy on Tuesday, September 16, 2021 and his last cycle (#6) weekly Carbo/Taxol will be given today. 08/27/2021: Here for week for follow-up of weekly carboplatin paclitaxel. Fatigue mildly increased with decreased appetite and minimal dysphagia but does not need to take additional medicine other than Tylenol for this. Otherwise no cough, dyspnea, fever, chills and no significant peripheral neuropathy. He willfollow-up in 2 weeks for chemoradiation toxicity visit with our nurse practitioner. I will then see him in 4 weeks after completion of chemoradiationand will discuss whether he gets consolidation carboplatin paclitaxel after restaging scan or continue with maintenance immunotherapy alone. 08/12/2021: Started concurrent chemoradiation with weekly Carboplatin/Paclitaxelone week ago. Tolerating well without cough, dyspnea, chest pain, bowel or bladder symptoms, or neuropathy. Will continue to follow every 2 weeks while onchemoradiation--likely candidate for one year immunotherapy with Imfinzi if response. 07/17/2021: This is a 70 yo male accompanied by his for new diagnosis of right upper lobe mass, wrapping around right mainstem bronchus, with associated mediastinal adenopathy. He apparently had right upper lobe pneumonia in 2019, no imaging since that time. He is a former smoker, prior 40 year history, quit about 18 years ago. About 1-2 months ago he had persistent nonproductive cough without hemoptysis. Increased dyspnea, but his notes he has had chronic dyspnea over the past 4 years. Slow nonquantified weight loss, decreased appetite, hoarseness, and mild right chest discomfort. CT Chest imaging at [facility] on 06/23/2021 showed a large lobulated mass of the superior segment of the right upper lobe extending to the hilum. There appears to be invasion of themass into the right mainstem bronchus. The mass measures approximately 5.5 x 7.6x 6.0 cm. There is a low density lesion in the liver that appears to be a cyst. 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 He does not have other significant comorbidities, prior malignancy, or known family history. We discussed that involvement of the right mainstem bronchus and mediastinum is consistent with likely Stage III lung cancer, but he needs a PET/CT to exclude liver metastases. If no distant metastatic disease on PET/CT, we will coordinate chemoradiation with weekly carboplatin/paclitaxel. I ordered PET/CT, radiation oncology consultation and reviewed informed consent for Carboplatin/Paclitaxel. I will see him the same day as Radiation Oncology consult to review PET/CT. He did sign informed consent today to expedite concurrent chemoradiation if no distant metastatic disease. We will also contact pathology to add PDL1 status--if metastatic disease, he may be a candidate for immunotherapy +/- chemotherapy. Today we reviewed chemotherapy counseling for weekly Carboplatin and Paclitaxel. Goal of therapy is curative if stage III. Common toxicities were reviewed to include infusion reactions/allergic reactions, myelosuppression, fatigue, nausea, vomiting, constipation, diarrhea, mouth sores, and alopecia. Other toxicities may include pneumonitis, neurologic, hepatic and renal toxicities. Risk of secondary malignancy due to effects of chemotherapy on bone marrow. Thepatient signed informed consent and will follow-up as directed. - Summary of Therapies Summary of Therapies: 08/06/2021: Commenced concurrent chemoradiation with Carboplatin AUC 2 IV Day 1 and Paclitaxel 45mg/m2 IV Day 1 weekly x 6 cycles. He was started on concurrent chemoradiotherapy treatment and received a dose of 6000 cGy to the right upper lobe mass and mediastinal nodes (bilateral) in 30 fractions from 08/06/2021 to 09/16/2021 over 41 elapsed days. Last cycle chemotherapy: 09/10/2021 - 09/30/2021: Cycle 1, Day 1 Durvalumab 10mg/kg IV every 2 weeks immunotherapy x 1 year. After 11/11/2021 2-week dose, changed to flat dose 1500 mg IV every 4-week dosing to complete 1 year of adjuvant immunotherapy. ROS Details: All systems reviewed & no additional complaints except as documented Subjective/ROS - Narrative: CONSTITUTIONAL: Resolved fatigue (after chemoradiation completed), negative for fever or night sweats. HEAD AND NECK: Negative for changes in hearing and vision. Negative for mouth ulcers, nasal congestion and nasal drainage. No recurrence of prior epistaxis. PULMONARY: Late September 2021 ER for worsening right chest wall pain--regressionof tumor with necrosis and small infiltrate noted on CT. Recurrent dyspnea/cough x 1-2 weeks following durvalumab, resolves with steroids. Now symptoms resolved. No significant cough. No hoarseness or dyspnea on exertion. CARDIOVASCULAR: Negative for claudication and irregular heartbeat/palpitations. No edema. GASTROINTESTINAL: Negative for abdominal pain, constipation, diarrhea, nausea, or vomiting. Improved appetite and improving dysphagia/resolved odynophagia as per HPI. GENITOURINARY: Negative for dysuria and hematuria. + h/o nephrolithiasis. ENDOCRINE: Negative for cold intolerance and heat intolerance. CENTRAL NERVOUS SYSTEM: Negative for gait disturbance and headache. No history of stroke. PSYCHIATRIC: Negative for anxiety or depression. DERMATOLOGICAL: Negative for pruritus and rash. Negative for suspicious skin lesions. MUSCULOSKELETAL: Negative for back pain and bone/joint symptoms. HEMATOLOGICAL: Negative for bleeding and easy bruising. Negative for history of transfusion or thromboembolic disease ALLERGY: Negative for environmental allergies and food allergies. PMF - History Attestation statement: The following information was validated with the patient. Source: Old Records Reviewed - Medical History Medical History: Medical History (Last Reviewed 01/21/22 @ 09:34 by Natacha Hess MD) Cough Hyperlipidemia Hypertensive heart disease Kidney stone Lung mass Shortness of breath - Surgical History Surgical History: Surgical History (Last Reviewed 01/21/22 @ 09:34 by Natacha Hess MD) History of carpal tunnel release History of neck surgery - Family History Family History: Family History (Last Reviewed 01/21/22 @ 09:34 by Natacha Hess MD) Father Heart disease Mother Diabetes Hypertension Sister Cancer - Social History Smoking Status: Former smoker Substance Use Type: None Home Medications & Allergies Allergies No Known Drug Allergies Allergy (Unknown, Verified 12/23/21 09:38) none Home Medications simvastatin 40 mg tablet (Zocor) 40 mg PO DAILY 02/26/18 [History Confirmed 01/21/22] aspirin 81 mg chewable tablet 81 mg PO DAILY #0 tab 02/27/18 [Rx Confirmed 01/21/22] hydrochlorothiazide 25 mg tablet 25 mg PO DAILY 30 Days #30 tab 02/27/18 [Rx Confirmed 01/21/22] carvedilol 3.125 mg tablet 3.125 mg PO Q12H 07/17/21 [History Confirmed 01/21/22] losartan 25 mg tablet 25 mg PO DAILY 07/17/21 [History Confirmed 01/21/22] ondansetron HCl 8 mg tablet 8 mg PO Q8H PRN #30 tab 08/05/21 [Rx Confirmed 01/21/22] hyaluronic jzmzyu-gtdgfeypp-bdcj vera extract topical gel (RadiaPlexRx) 1 applicTOPICAL TID 08/25/21 [History Confirmed 11/11/21] hydrocortisone 1 % topical cream 1 applic TOPICAL TID 08/25/21 [History Confirmed 11/11/21] hyaluronic otcnjr-qsbqrurri-zcjr vera extract topical gel (RadiaPlexRx) 1 applicTOPICAL TID 09/15/21 [History Confirmed 11/11/21] oxycodone-acetaminophen 5 mg-325 mg tablet (Percocet) 1 tab PO Q4-6H PRN 09/15/21 [History Confirmed 01/21/22] docusate sodium 100 mg capsule (Colace) 200 mg PO QHS 01/21/22 [History Confirmed 01/21/22] methylprednisolone 4 mg tablets in a dose pack (Medrol (Cb)) 4 mg PO DIRECTED 01/21/22 [History Confirmed 01/21/22] Objective - Height/Weight Height/Weight: Height 5 ft 10 in Weight 115.6 kg BSA for Today's Weight 2.36 - Vital Signs Vital Signs: 01/21/22 08:58 Temperature 98.8 F Pulse Rate [Left Brachial] 86 Respiratory Rate 20 Blood Pressure [Right Arm] 160/85 H 02 Sat by Pulse Oximetry 95 - Pain Right Chest Pain Intensity: 4 - Distress Screening Distress Screen Results: RN Distress Screening Start: 07/17/21 11:07 Freq: Status: Complete Protocol: Document 10/19/21 09:44 DB (Rec: 09/01/21 09:45 DB [id number]) Distress Screening Distress Score: 2 Emotional Concerns Feeling uncertain about the future Distress Screening Total 2 Physical Exam Narrative: CONSTITUTIONAL: The patient is in no acute distress. HEAD / FACE: Normocephalic; atraumatic, no scleral icterus. EYES: Pupils are equal and reactive to light. Conjunctivae and lids are benign in appearance. Ocular movement intact. EARS: Hearing grossly intact. NOSE / MOUTH / THROAT: Nose, mouth, tongue and oropharynx are benign in appearance. No signs of inflammation. NECK / THYROID: Neck is supple. Thyroid is symmetrical, without thyromegaly, masses or palpable nodules. LYMPHATIC: No palpable cervical, supraclavicular, axillary, or inguinal adenopathy. RESPIRATORY: Normal to inspection. Lungs clear to auscultation bilaterally; occasional coarse rhonchi resolved with cough but no wheezes or rales. CARDIOVASCULAR: Regular rate and rhythm. No murmurs, gallops, or rubs. VASCULAR: Carotid, radial, femoral and pedal pulses present bilaterally. No bruits. ABDOMEN: Bowel sounds normoactive. Soft, nontender and non-distended. No hepatosplenomegaly. No masses. GENITOURINARY: No CVA tenderness. INTEGUMENTARY: The skin is unremarkable. No rashes. No suspicious lesions BACK / SPINE: The back is nontender. MUSCULOSKELETAL: Normal musculature, no joint deformities or abnormalities, normal range of motion for all four extremities. EXTREMITIES: No edema, cyanosis or clubbing. No Nigel sign. NEUROLOGICAL: Alert and oriented. Cranial nerves intact. No gross motor or sensory deficits. Ambulates independently. PSYCHIATRIC: No anxiety or evidence of depression. - ECOG Performance Status ECOG Score: 1 Results - Labs Labs: Diagram of Most Recent CBC and CMP 01/13/22 08:25 01/13/22 08:25 Labs - Last 7 Days 01/13/22 08:25: ACTH 31.8 - Impressions CT CHEST WITH INTRAVENOUS CONTRAST: CLINICAL HISTORY: Lung cancer with pneumonia last month. COMPARISON: CT chest 12/04/2021. TECHNIQUE: Spiral images were obtained through the chest following intravenous administration of IV contrast. This CT exam was performed using one or more following dose reduction techniques: Automated exposure control, adjustment of the mA and/or kV according to patient size, or use of iterative reconstruction technique. FINDINGS: Mediastinum:Vascular appears normal caliber. Pulmonary trunk appears nondilated.No pericardial effusion. Partially calcified subcarinal and left hilar lymph nodes. No pathologically enlarged lymph nodes are seen. The esophagus is grosslyunremarkable. Tiny hiatal hernia. Lungs:The previous identified cavitary lesion involving the right perihilar region appears to have decrease in size since the prior study now measuring 5.2 x 4.8 x 3.9 cm, once measuring 6.5 x 4.6 x 5.5 cm. Evolving Presumed postradiation changes are identified involving both lungs grossly similar in distribution to the prior study. Trace right-sided pleural effusion. No pneumothorax. Peripheral fibrotic changes. Trachea and distal airways appear patent. Abd:Liver and renal cysts. Partially visualized staghorn like calculus involvingthe left kidney. Soft tissues/Bones: Visualized soft tissues surrounding the chest wall demonstrate no acute findings. Osseous structures demonstrate degenerative change. No aggressive bony lesions. CT/CT chest w con IMPRESSION: Interval decrease in size of the cavitary lesion involving the right hilar region suggestive of response to therapy. Evolving presumed postradiation changes are identified involving both lungs grossly similar in distribution to the prior study. Interval development of a trace right-sided pleural effusion since the prior study. Staghorn type calculus is seen within the left kidney, partially visualized on today's study. Impression dictated by: Crescencio Blanca Jr., D.O.01/13/2022 12:49 PM Assessment and Plan - TNM Staging Staging: Stage IIIB right upper lobe (overlapping sites involving right mainstem bronchus). No distant metastatic disease on PET/CT for final staging. 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 No distant metastatic disease on PET/CT, therefore we coordinated chemoradiation with weekly carboplatin/paclitaxel. He commenced weekly Carboplatin/Paclitaxel with radiation on 08/06/2021 and today he will be receiving #6 Carboplatin/Paclitaxel and is scheduled to completed radiation therapy on 09/16/2021. 08/12/2021: No toxicities other than mild increase in creatinine. 08/27/2021: Grade 1 odynophagia with decreased appetite. Added sucralfate slurry 1 g every 6 hours as needed for remainder of chemoradiation. 09/10/2021: Grade 1 fatigue; otherwise no significant toxicities to chemotherapy; weight is stable; stable anemia. Normal electrolytes. Minimal nausea and no significant pain other than some acid reflux like symptoms; well controlled with Prilosec. --Patient completed Cycle 6 weekly Carboplatin/Paclitaxel therapy (09/10/2021) and radiotherapy to complete on 09/16/2021. 09/24/2021: Reviewed informed consent for Durvalumab maintenance therapy 10mg/kg IV every 2 weeks x 1 year (ok to change to monthly therapy if well tolerated). 10/14/2021: Patient was sent to ER for right chest wall pain on 10/07 following first durvalumab dose 09/30/2021. Noted to have regression of prior right middlelobe lesion and adenopathy with small adjacent infiltrate (this may be postradiation change but patient was placed on antibiotics). His pain has now completely resolved with no significant cough. Otherwise tolerating immunotherapy well. We will continue him on every 2-week dosing until receivingwhether he has recurrent chest discomfort or symptoms on durvalumab. Next follow-up with me in 4 weeks for toxicity check on immunotherapy. We will not repeat his chest CT since this was just performed in emergency department. 01/22/2022: Patient is here for 3-month follow-up on durvalumab maintenance therapy. He has had recurrent episodes of chest wall pain and dyspnea, previously treated with antibiotics and subsequent steroids. He notes that his symptoms tend to worsen for about 1 to 2 weeks following his immunotherapy, usually beginning 2 to 3 days after therapy. I will give him a brief course of Medrol Dosepak with each cycle and he will have reassessment with nurse practitioner for toxicity visit next week to see if this prevents his cough and dyspnea symptoms. We reviewed his restaging CT chest which shows reduction in size of his cavitary lesion in the right hilum from 6.5 to 5.2 cm in greatest diameter. There are evolving postradiation changes consistent with his pneumonitis and interval development of trace right-sided pleural effusion. Next follow-up with me will be in [address] chest at that time, although he may follow-up sooner after his [employer] visit if he is having persistent pneumonitis. Moderate complexity 35 minute visit for review of recent ER visits and toxicities on durvalumab therapy. (2) Drug-induced pneumonitis Recurrent pneumonitis as addressed above. Medrol Dosepak for 1 week following next durvalumab and reassessment with next practitioner to see if this alleviates his symptoms. (3) Encounter for antineoplastic immunotherapy No distant metastatic disease on PET/CT for staging (bilateral mediastinal and subcarinal adenopathy noted). Concurrent chemoradiation commenced 08/06/2021--Carboplatin AUC 2 IV and Paclitaxel 45mg/m2 IV weekly x 6-7 weeks. Tolerated well. He completed Cycle 6 weekly Carboplatin/Paclitaxel therapy 09/10/2021 and radiotherapy complete on 09/16/2021. Cycle 1 day 1 09/30/2021 durvalumab 10mg/kg IV every 2 weeks immunotherapy as noted above. Changing to flat dose durvalumab 1500 milligrams IV every 4 weeks with 11/23/2021 dose. He will complete 1 year of therapy if well-tolerated. Follow up with nurse practitioner in ~1 week after durvalumab with Medrol Dosepak to treat post immunotherapy pneumonitis to review immunotherapy toxicities. - Chemo Plan Chemo Plan (Dose, Rate, Freq): Concurrent chemoradiation with Carboplatin AUC 2 IV Day 1 and Paclitaxel 45mg/m2IV Day 1 weekly x 6-7 weeks. Durvalumab 10mg/kg IV every 2 week immunotherapy x2 months then 1500mg IV q 4weeks to complete 1 year of therapy. Goal of Treatment: Curative - Time with Patient Time Spent with Patient (Follow Up Visit): 35 minutes - moderate complexity for immunotherapy toxicity review and review of immunotherapy related pneumonitis, restaging scan. Coordination of Care & Counseling Time: Greater than 50% of time spent with patient was for coordination of care (as documented) and [id number] counseling of patient and/or family. Dictated By: Natacha Hess MD DD/ [id number] Signed By: <Electronically signed by MD Natacha Hess> 01/22/22 0052 [facility] Work Phone: [phone]) 152-536703-10-2022 Progress note Author Jimy Saba [facility] January 21, 2022 10:12am Note Date/Time January 19, 2022 2:03 pm [place] [address] Rad Onc Follow Up Note - OP Signed Patient: Bert Yeung MR#: [id number] : 1950 Acct:[id number] Age/Sex: 71 / M Type: REG RCR Copies to: Howie Fulton MD~ Assessment & Plan (1) Malignant neoplasm of upper lobe, right bronchus or lung Plan: RTC PRN Assessment: 71 yo m with h/o Stage IIIc squamous cell carcinoma of the right upper lobe. He received definitive treatment with concurrent chemoradiation to adose of 60 Ramos in 30 fractions completed in September 2021. He received weekly carboplatin and paclitaxel. He was then initiated on Durvalumab and continues under the care of medical oncology. I reviewed his chest imaging which shows expected posttreatment response with a decrease size of the cavitary lesion in the right lung as well as surrounding radiation change consistent with the radiation field. This patient continues on his immunotherapy under the care of medical oncology we will go ahead today and discharged in their care. Encouraged to discuss his concerns with Med Onc today regarding the need for steroids after the Durvalumab. Fortunately his breathing is significantly improved. We are happy to see him back at any time if there is a need for additional radiation or radiation related concerns. 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 He received definitive treatment with concurrent chemoradiation to a dose of 60 Ramos in 30 fractions completed in September 2021. He received weekly carboplatinand paclitaxel. He was then initiated on Durvalumab and continues under the care of medical oncology. His course was complicated by a diagnosis of pneumonia after his first Durvalumab infusion. He was seen in the ED and treated with antibiotics. He returns to clinic today for routine follow-up. His chest CT was completed on January 14, 2022 IMPRESSION: Interval decrease in size of the cavitary lesion involving the right hilar region suggestive of response to therapy. Evolving presumed postradiation changes are identified involving both lungs grossly similar in distribution to the prior study. Interval development of a trace right-sided pleural effusion since the prior study. Staghorn type calculus is seen within the left kidney, partially visualized on today's study. Today patient continues to do well. Denies shortness of breath, no cough. He denies any significant dysphagia and is tolerating p.o. intake. His biggest complaint today is shortness of breath after receiving the Durvalumab. He has required steroids after his last dose and would like to discuss this with medical oncology today. Physical Exam: General: alert and oriented male in no acute distress HEENT: normocephalic, extra ocular movements intact, clear OP Lungs: normal work of breathing on room air, CTAB Abdomen: non acute MSK: extremities within normal limits Neuro: grossly intact Dictated By: Jimy Saba MD DD/ [id number] Signed By: <Electronically signed by Jimy Saba MD> 01/21/22 1012 [facility] Work Phone: 1(171) 315-862902-09-2022 Progress note Author Mia Eisenberg [facility] December 23, 2021 11:22am Note Date/Time December 23, 2021 1 0:55am [facility] [place] [place] [address] Hem/Onc Follow Up Note - OP Signed Patient: Bert Yeung MR#: [id number] : 1950 Acct:[id number] Age/Sex: 71 / M Type: REG RCR Copies to: MD Howie Garner MD~ Subjective Date/Time of Service: Date of Service: 12/23/2021 Time of Service: 10:50 Chief Complaint: Patient is here today for 6 week follow up visit. He is here togo over labs and CT scan. He has been having shortness of breath and cough HPI: 12/23/2021: Bert presents today with his for follow-up for his lung cancer. He states he is feeling better finally today after the past 2 weeks with pneumonia. He finished his antibiotic yesterday. He is still short of breath, but this is somewhat improved. He continues with cough but denies chest pain, fever or chills. He is tolerating durvalumab well- no diarrhea, skin rash or abdominal pain. Labs reviewed and ok for treatment. We will have him get a chestXR prior to treatment today and will plan his re-staging CT scan for 2-3 weeks with follow-up after. He will continue monthly durvalumab unless he progresses, has a pneumonitis or other new symptoms of toxicity arise. 11/11/2021: Bert presents with his for follow-up. His severe right-sided chest pain and dyspnea has now completely resolved from last visit. He has not had any suggestive toxicities from durvalumab--no diarrhea, skin rashes, or recurrent dyspnea. He has returned to normal performance status and denies any fatigue. We reviewed his laboratories showing no immunotherapy related endocrine toxicities. Since he is now at normal baseline, I will give his 2-week dosing of durvalumab today then change to every 4-week dosing. His next follow-up with me will be in 6 weeks and he will have restaging CT chest in lateFebruary unless new symptoms arise. 10/14/2021: Bert was sent to ER 1 week ago (10/07/2021) after presenting with severe right-sided chest pain for about 1 week. He did not report worsening with inspiration but was worse with eating. Chest CT showed regression of priorright middle lobe tumor with internal necrosis and regression of prior adenopathy. There was an infiltrate posterior to his mass and no evidence of pulmonary embolism. He completed a course of azithromycin and notes that his chest pain is now completely resolved. He has no dyspnea with exertion or cough. Otherwise tolerated initial Durvalumab dose well--few loose stools the evening of his dose but no anny diarrhea, no skin rashes, and laboratories are stable. He also notes that Dr. Smith recommended starting N-acetylcysteine supplementation for his immunity, however I asked him to hold this for now sincehe has only recently started durvalumab and I will research whether this is indicated with his immunotherapy. --We will continue every 2-week durvalumab to see if he has any further toxicities, then follow-up in 1 month. If well-tolerated we will change to every 4-week dosing. 09/24/2021: Bert presents with his to discuss commencing immunotherapy after completing 6 weeks of concurrent chemoradiation (last dose chemo 09/10, last radiation 09/16). Fatigue improved but he has had 3 episodes of epistaxis over the past week (longest lasting about 6-7 minutes). Improved with saline nasal spray--offered ENT eval but he wants to observe. Mild dyspnea on exertionand cough. Today we discussed immunotherapy maintenance with Durvalumab over one year (initially every 2 weeks, then every 4 weeks if well tolerated). Goal of therapy is curative. Today we reviewed immunotherapy (checkpoint inhibitor) counseling for Durvalumab. Common toxicities were reviewed to include infusion reactions and allergic reactions, fatigue, skin rashes, visual and ocular toxicities, diarrhea, abdominal pain from pancreatitis, and abnormal thyroid, adrenal, and pituitary function. Other toxicities may include pneumonitis, sexual side effects, neurologic, hepatic and renal toxicities. The patient signed informed consent and will follow-up as directed. I will see him C2D1 durvalumab for tox check. 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 He has tolerated his treatment exceptionally well and has had very few side effects/toxicities to therapy. He reports good appetite, stable weight.Essentially has no pain and has only required 4 doses of Zofran for breakthroughnausea. He has mild GERD-like symptoms, well controlled with Prilosec. Specifically denies any issues with headaches, fever/chills, cough, shortness ofbreath, bowel/bladder problems, peripheral neuropathy, skin rash or lower extremity edema. --He will complete radiotherapy on Tuesday, September 16, 2021 and his last cycle (#6) weekly Carbo/Taxol will be given today. 08/27/2021: Here for week for follow-up of weekly carboplatin paclitaxel. Fatigue mildly increased with decreased appetite and minimal dysphagia but does not need to take additional medicine other than Tylenol for this. Otherwise no cough, dyspnea, fever, chills and no significant peripheral neuropathy. He willfollow-up in 2 weeks for chemoradiation toxicity visit with our nurse practitioner. I will then see him in 4 weeks after completion of chemoradiationand will discuss whether he gets consolidation carboplatin paclitaxel after restaging scan or continue with maintenance immunotherapy alone. 08/12/2021: Started concurrent chemoradiation with weekly Carboplatin/Paclitaxelone week ago. Tolerating well without cough, dyspnea, chest pain, bowel or bladder symptoms, or neuropathy. Will continue to follow every 2 weeks while onchemoradiation--likely candidate for one year immunotherapy with Imfinzi if response. 07/17/2021: This is a 70 yo male accompanied by his for new diagnosis of right upper lobe mass, wrapping around right mainstem bronchus, with associated mediastinal adenopathy. He apparently had right upper lobe pneumonia in 2019, no imaging since that time. He is a former smoker, prior 40 year history, quit about 18 years ago. About 1-2 months ago he had persistent nonproductive cough without hemoptysis. Increased dyspnea, but his notes he has had chronic dyspnea over the past 4 years. Slow nonquantified weight loss, decreased appetite, hoarseness, and mild right chest discomfort. CT Chest imaging at [facility] on 06/23/2021 showed a large lobulated mass of the superior segment of the right upper lobe extending to the hilum. There appears to be invasion of themass into the right mainstem bronchus. The mass measures approximately 5.5 x 7.6x 6.0 cm. There is a low density lesion in the liver that appears to be a cyst. 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 He does not have other significant comorbidities, prior malignancy, or known family history. We discussed that involvement of the right mainstem bronchus and mediastinum is consistent with likely Stage III lung cancer, but he needs a PET/CT to exclude liver metastases. If no distant metastatic disease on PET/CT, we will coordinate chemoradiation with weekly carboplatin/paclitaxel. I ordered PET/CT, radiation oncology consultation and reviewed informed consent for Carboplatin/Paclitaxel. I will see him the same day as Radiation Oncology consult to review PET/CT. He did sign informed consent today to expedite concurrent chemoradiation if no distant metastatic disease. We will also contact pathology to add PDL1 status--if metastatic disease, he may be a candidate for immunotherapy +/- chemotherapy. Today we reviewed chemotherapy counseling for weekly Carboplatin and Paclitaxel. Goal of therapy is curative if stage III. Common toxicities were reviewed to include infusion reactions/allergic reactions, myelosuppression, fatigue, nausea, vomiting, constipation, diarrhea, mouth sores, and alopecia. Other toxicities may include pneumonitis, neurologic, hepatic and renal toxicities. Risk of secondary malignancy due to effects of chemotherapy on bone marrow. Thepatient signed informed consent and will follow-up as directed. - Summary of Therapies Summary of Therapies: 08/06/2021: Commenced concurrent chemoradiation with Carboplatin AUC 2 IV Day 1 and Paclitaxel 45mg/m2 IV Day 1 weekly x 6 cycles. He was started on concurrent chemoradiotherapy treatment and received a dose of 6000 cGy to the right upper lobe mass and mediastinal nodes (bilateral) in 30 fractions from 08/06/2021 to 09/16/2021 over 41 elapsed days. Last cycle chemotherapy: 09/10/2021 - 09/30/2021: Cycle 1, Day 1 Durvalumab 10mg/kg IV every 2 weeks immunotherapy x 1 year. After 11/11/2021 2-week dose, will change to flat dose 1500 mg IV every 4- week dosing to complete 1 year of adjuvant immunotherapy. ROS Details: All systems reviewed & no additional complaints except as documented PMF - Medical History Medical History: Medical History (Last Reviewed 11/11/21 @ 13:51 by Natacha Hess MD) Cough Hyperlipidemia Hypertensive heart disease Kidney stone Lung mass Shortness of breath - Surgical History Surgical History: Surgical History (Last Reviewed 11/11/21 @ 13:51 by Natacha Hess MD) History of carpal tunnel release History of neck surgery - Family History Family History: Family History (Last Reviewed 11/11/21 @ 13:51 by Natacha Hess MD) Father Heart disease Mother Diabetes Hypertension Sister Cancer - Social History Smoking Status: Former smoker Substance Use Type: None Home Medications & Allergies Allergies No Known Drug Allergies Allergy (Unknown, Verified 12/23/21 09:38) none Home Medications simvastatin 40 mg tablet (Zocor) 40 mg PO DAILY 02/26/18 [History Confirmed 11/11/21] aspirin 81 mg chewable tablet 81 mg PO DAILY #0 tab 02/27/18 [Rx Confirmed 11/11/21] hydrochlorothiazide 25 mg tablet 25 mg PO DAILY 30 Days #30 tab 02/27/18 [Rx Confirmed 11/11/21] carvedilol 3.125 mg tablet 3.125 mg PO Q12H 07/17/21 [History Confirmed 11/11/21] losartan 25 mg tablet 25 mg PO DAILY 07/17/21 [History Confirmed 11/11/21] ondansetron HCl 8 mg tablet 8 mg PO Q8H PRN #30 tab 08/05/21 [Rx Confirmed 11/11/21] hyaluronic ixujvx-eofsgblxw-pgud vera extract topical gel (RadiaPlexRx) 1 applicTOPICAL TID 08/25/21 [History Confirmed 11/11/21] hydrocortisone 1 % topical cream 1 applic TOPICAL TID 08/25/21 [History Confirmed 11/11/21] ibuprofen-diphenhydramine citrate 200 mg-38 mg tablet (Advil PM) 2 cap PO QHS 08/27/21 [History Confirmed 11/11/21] sucralfate 100 mg/mL oral suspension 5 ml PO QID 30 Days #600 ml 08/27/21 [Rx Confirmed 11/11/21] omeprazole magnesium 20 mg tablet,delayed release (Prilosec OTC) 20 mg PO DAILY 09/10/21 [History Confirmed 11/11/21] hyaluronic djcyif-oqzubsatq-ufhe vera extract topical gel (RadiaPlexRx) 1 applicTOPICAL TID 09/15/21 [History Confirmed 11/11/21] oxycodone-acetaminophen 5 mg-325 mg tablet (Percocet) 1 tab PO Q4-6H PRN 09/15/21 [History Confirmed 11/11/21] prednisone 20 mg tablet 40 mg PO DAILY #10 tab 12/02/21 [Rx] Objective - Height/Weight Height/Weight: Height 5 ft 10 in Weight 112.945 kg BSA for Today's Weight 2.40 - Vital Signs Vital Signs: 12/23/21 09:41 Temperature 98.2 F Pulse Rate [Left Brachial] 84 Respiratory Rate 20 Blood Pressure [Left Arm] 114/77 02 Sat by Pulse Oximetry 94 L - Pain Right Chest Pain Intensity: 4 - Distress Screening Distress Screen Results: RN Distress Screening Start: 07/17/21 11:07 Freq: Status: Complete Protocol: Document 09/01/21 09:44 DB (Rec: 09/01/21 09:45 DB [id number]) Distress Screening Distress Score: 2 Emotional Concerns Feeling uncertain about the future Distress Screening Total 2 Physical Exam Narrative: CONSTITUTIONAL: The patient is in no acute distress. HEAD / FACE: Normocephalic; atraumatic, no scleral icterus. EYES: Pupils are equal and reactive to light. Conjunctivae and lids are benign in appearance. Ocular movement intact. EARS: Hearing grossly intact. NOSE / MOUTH / THROAT: Nose, mouth, tongue and oropharynx are benign in appearance. No signs of inflammation. NECK / THYROID: Neck is supple. Thyroid is symmetrical, without thyromegaly, masses or palpable nodules. LYMPHATIC: No palpable cervical, supraclavicular, axillary, or inguinal adenopathy. RESPIRATORY: Normal to inspection. Lungs clear to auscultation bilaterally; no wheezes, rhonchi or rales. CARDIOVASCULAR: Regular rate and rhythm. No murmurs, gallops, or rubs. VASCULAR: Carotid, radial, femoral and pedal pulses present bilaterally. No bruits. ABDOMEN: Bowel sounds normoactive. Soft, nontender and non-distended. No hepatosplenomegaly. No masses. GENITOURINARY: No CVA tenderness. INTEGUMENTARY: The skin is unremarkable. No rashes. No suspicious lesions BACK / SPINE: The back is nontender. MUSCULOSKELETAL: Normal musculature, no joint deformities or abnormalities, normal range of motion for all four extremities. EXTREMITIES: No edema, cyanosis or clubbing. No Nigel sign. NEUROLOGICAL: Alert and oriented. Cranial nerves intact. No gross motor or sensory deficits. Ambulates independently. PSYCHIATRIC: No anxiety or evidence of depression. Results - Labs Labs: Diagram of Most Recent CBC and CMP 12/22/21 16:30 12/22/21 16:30 Labs - Last 7 Days 12/22/21 16:30: PHA Creatinine Clear 79.03, Sodium 136, Potassium 3.9, Chloride 98, Carbon Dioxide 25.9, BUN 15, Creatinine 1.13, Est GFR ( Amer) > 60, Est GFR (Non-Af Amer) > 60, Glucose 96, Calcium 9.5, Total Bilirubin 0.7, AST 30, ALT 55, Alkaline Phosphatase 105 H, Total Protein 6.3, Albumin 3.0 L, Globulin 3.3, Albumin/Globulin Ratio 0.9 12/22/21 16:30: Corrected WBC 9.9, Uncorrected WBC Count 9.9, RBC 4.10, Hgb 11.9L, Hct 34.6 L, MCV 84.3, MCH 28.9, MCHC 34.3, RDW 15.9 H, Plt Count 532 H, MPV 6.4 L, Neut % (Auto) 69.3, Lymph % (Auto) 10.1, [place] % (Auto) 15.0, Eos % (Auto)5.0, Baso % (Auto) 0.6, Neut # (Auto) 6.9, Lymph # (Auto) 1.0, [place] # (Auto) 1.5H, Eos # (Auto) 0.5 H, Baso # (Auto) 0.1, Nucleated RBC % (auto) 0.1 12/22/21 16:30: Free T4 0.90, TSH 3rd Generation 1.45, Total Cortisol 7.3 Assessment and Plan - TNM Staging Staging: Stage IIIB right upper lobe (overlapping sites involving right mainstem bronchus). No distant metastatic disease on PET/CT for final staging. 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 No distant metastatic disease on PET/CT, therefore we coordinated chemoradiation with weekly carboplatin/paclitaxel. He commenced weekly Carboplatin/Paclitaxel with radiation on 08/06/2021 and completed radiation therapy 09/16/2021. 08/12/2021: No toxicities other than mild increase in creatinine. 08/27/2021: Grade 1 odynophagia with decreased appetite. Added sucralfate slurry 1 g every 6 hours as needed for remainder of chemoradiation. 09/10/2021: Grade 1 fatigue; otherwise no significant toxicities to chemotherapy; weight is stable; stable anemia. Normal electrolytes. Minimal nausea and no significant pain other than some acid reflux like symptoms; well controlled with Prilosec. --Patient completed Cycle 6 weekly Carboplatin/Paclitaxel therapy (09/10/2021) and radiotherapy completed on 09/16/2021. 09/24/2021: Reviewed informed consent for Durvalumab maintenance therapy 10mg/kg IV every 2 weeks x 1 year (ok to change to monthly therapy if well tolerated). 10/14/2021: Patient was sent to ER for right chest wall pain on 10/07 following first durvalumab dose 09/30/2021. Noted to have regression of prior right middle lobe lesion and adenopathy with small adjacent infiltrate (this may be postradiation change but patient was placed on antibiotics). His pain has now completely resolved with no significant cough. Otherwise tolerating immunotherapy well. We will continue him on every 2-week dosing until receivingwhether he has recurrent chest discomfort or symptoms on durvalumab. 11/11/2021: Here for 4-week follow-up with complete resolution of his chest painand no cough or other immunotherapy toxicities. Labs reviewed with normal thyroid function. Since he is tolerating durvalumab well we will change durvalumab to every 4-week dosing 1500 mg IV. This will commence with next orders in 2 weeks 11/23/2021. Next follow-up with me in 6 weeks for toxicity check on immunotherapy. We will not repeat his chest CT until late December unless new symptoms arise. Patient and his express understanding and will followup as directed. 12/23/2021: He has completed a 2 week course of antibiotics for pneumonia with some improvement in symptoms. We will check chest XR today and he has re-stagingCT scan in approx. 3 weeks. He continues to tolerate the durvalumab well and remains on this monthly. Labs reviewed and stable. He will follow-up with Dr. Hess at his next cycle. (2) Encounter for antineoplastic immunotherapy No distant metastatic disease on PET/CT for staging (bilateral mediastinal and subcarinal adenopathy noted). Concurrent chemoradiation commenced 08/06/2021--Carboplatin AUC 2 IV and Paclitaxel 45mg/m2 IV weekly x 6-7 weeks. Tolerated well. He completed Cycle 6 weekly Carboplatin/Paclitaxel therapy 09/10/2021 and radiotherapy complete on 09/16/2021. Cycle 1 day 1 09/30/2021 durvalumab 10mg/kg IV every 2 weeks immunotherapy as noted above. Changing to flat dose durvalumab 1500 milligrams IV every 4 weeks with 11/23/2021 dose. He will complete 1 year of therapy if well-tolerated. Follow up with Dr. Hess in ~ 4 weeks to review chest CT, labs and immunotherapytoxicities. - Chemo Plan Chemo Plan (Dose, Rate, Freq): Concurrent chemoradiation with Carboplatin AUC 2 IV Day 1 and Paclitaxel 45mg/m2IV Day 1 weekly x 6-7 weeks. Durvalumab 10mg/kg IV every 2 week immunotherapy x2 months then 1500mg IV q 4weeks to complete 1 year of therapy. Goal of Treatment: Curative - Time with Patient Time Spent with Patient (Follow Up Visit): 35 minutes - moderate complexity for immunotherapy toxicity review. Coordination of Care & Counseling Time: Greater than 50% of time spent with patient was for coordination of care (as documented) and [id number] counseling of patient and/or family. Dictated By: Mia Eisenberg APRN DD/ [id number] Signed By: <Electronically signed by LUISITO Eisenberg> 12/23/21 [address] [facility] Work Phone: [phone] 433-593312-29-2021 Progress note Author Natacha Hess [facility] November 11, 2021 2:00pm Note Date/Time November 11, 2021 9:19am [facility] [place] [place] [address] Hem/Onc Follow Up Note - OP Signed Patient: Bert Yeung MR#: [id number] : 1950 Acct:[id number] Age/Sex: 70 / M Type: REG RCR Copies to: Howie Fulton MD~ Subjective Date/Time of Service: Date of Service: 11/11/2021 Time of Service: 09:17 Chief Complaint: patient is here today for 4 week follow up visit and to go overlabs. He has been getting more cold then normal HPI: 11/11/2021: Bert presents with his for follow-up. His severe right-sided chest pain and dyspnea has now completely resolved from last visit. He has not had any suggestive toxicities from durvalumab--no diarrhea, skin rashes, or recurrent dyspnea. He has returned to normal performance status and denies any fatigue. We reviewed his laboratories showing no immunotherapy related endocrine toxicities. Since he is now at normal baseline, I will give his 2-week dosing of durvalumab today then change to every 4-week dosing. His next follow-up with me will be in 6 weeks and he will have restaging CT chest in lateFebruary unless new symptoms arise. 10/14/2021: Bert was sent to ER 1 week ago (10/07/2021) after presenting with severe right-sided chest pain for about 1 week. He did not report worsening with inspiration but was worse with eating. Chest CT showed regression of priorright middle lobe tumor with internal necrosis and regression of prior adenopathy. There was an infiltrate posterior to his mass and no evidence of pulmonary embolism. He completed a course of azithromycin and notes that his chest pain is now completely resolved. He has no dyspnea with exertion or cough. Otherwise tolerated initial Durvalumab dose well--few loose stools the evening of his dose but no anny diarrhea, no skin rashes, and laboratories are stable. He also notes that Dr. Smith recommended starting N-acetylcysteine supplementation for his immunity, however I asked him to hold this for now sincehe has only recently started durvalumab and I will research whether this is indicated with his immunotherapy. --We will continue every 2-week durvalumab to see if he has any further toxicities, then follow-up in 1 month. If well-tolerated we will change to every 4-week dosing. 09/24/2021: Bert presents with his to discuss commencing immunotherapy after completing 6 weeks of concurrent chemoradiation (last dose chemo 09/10, last radiation 09/16). Fatigue improved but he has had 3 episodes of epistaxis over the past week (longest lasting about 6-7 minutes). Improved with saline nasal spray--offered ENT eval but he wants to observe. Mild dyspnea on exertionand cough. Today we discussed immunotherapy maintenance with Durvalumab over one year (initially every 2 weeks, then every 4 weeks if well tolerated). Goal of therapy is curative. Today we reviewed immunotherapy (checkpoint inhibitor) counseling for Durvalumab. Common toxicities were reviewed to include infusion reactions and allergic reactions, fatigue, skin rashes, visual and ocular toxicities, diarrhea, abdominal pain from pancreatitis, and abnormal thyroid, adrenal, and pituitary function. Other toxicities may include pneumonitis, sexual side effects, neurologic, hepatic and renal toxicities. The patient signed informed consent and will follow-up as directed. I will see him C2D1 durvalumab for tox check. 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 He has tolerated his treatment exceptionally well and has had very few side effects/toxicities to therapy. He reports good appetite, stable weight.Essentially has no pain and has only required 4 doses of Zofran for breakthroughnausea. He has mild GERD-like symptoms, well controlled with Prilosec. Specifically denies any issues with headaches, fever/chills, cough, shortness ofbreath, bowel/bladder problems, peripheral neuropathy, skin rash or lower extremity edema. --He will complete radiotherapy on Tuesday, September 16, 2021 and his last cycle (#6) weekly Carbo/Taxol will be given today. 08/27/2021: Here for week for follow-up of weekly carboplatin paclitaxel. Fatigue mildly increased with decreased appetite and minimal dysphagia but does not need to take additional medicine other than Tylenol for this. Otherwise no cough, dyspnea, fever, chills and no significant peripheral neuropathy. He willfollow-up in 2 weeks for chemoradiation toxicity visit with our nurse practitioner. I will then see him in 4 weeks after completion of chemoradiationand will discuss whether he gets consolidation carboplatin paclitaxel after restaging scan or continue with maintenance immunotherapy alone. 08/12/2021: Started concurrent chemoradiation with weekly Carboplatin/Paclitaxelone week ago. Tolerating well without cough, dyspnea, chest pain, bowel or bladder symptoms, or neuropathy. Will continue to follow every 2 weeks while onchemoradiation--likely candidate for one year immunotherapy with Imfinzi if response. 07/17/2021: This is a 70 yo male accompanied by his for new diagnosis of right upper lobe mass, wrapping around right mainstem bronchus, with associated mediastinal adenopathy. He apparently had right upper lobe pneumonia in 2019, no imaging since that time. He is a former smoker, prior 40 year history, quit about 18 years ago. About 1-2 months ago he had persistent nonproductive cough without hemoptysis. Increased dyspnea, but his notes he has had chronic dyspnea over the past 4 years. Slow nonquantified weight loss, decreased appetite, hoarseness, and mild right chest discomfort. CT Chest imaging at [facility] on 06/23/2021 showed a large lobulated mass of the superior segment of the right upper lobe extending to the hilum. There appears to be invasion of themass into the right mainstem bronchus. The mass measures approximately 5.5 x 7.6x 6.0 cm. There is a low density lesion in the liver that appears to be a cyst. 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 He does not have other significant comorbidities, prior malignancy, or known family history. We discussed that involvement of the right mainstem bronchus and mediastinum is consistent with likely Stage III lung cancer, but he needs a PET/CT to exclude liver metastases. If no distant metastatic disease on PET/CT, we will coordinate chemoradiation with weekly carboplatin/paclitaxel. I ordered PET/CT, radiation oncology consultation and reviewed informed consent for Carboplatin/Paclitaxel. I will see him the same day as Radiation Oncology consult to review PET/CT. He did sign informed consent today to expedite concurrent chemoradiation if no distant metastatic disease. We will also contact pathology to add PDL1 status--if metastatic disease, he may be a candidate for immunotherapy +/- chemotherapy. Today we reviewed chemotherapy counseling for weekly Carboplatin and Paclitaxel. Goal of therapy is curative if stage III. Common toxicities were reviewed to include infusion reactions/allergic reactions, myelosuppression, fatigue, nausea, vomiting, constipation, diarrhea, mouth sores, and alopecia. Other toxicities may include pneumonitis, neurologic, hepatic and renal toxicities. Risk of secondary malignancy due to effects of chemotherapy on bone marrow. Thepatient signed informed consent and will follow-up as directed. - Summary of Therapies Summary of Therapies: 08/06/2021: Commenced concurrent chemoradiation with Carboplatin AUC 2 IV Day 1 and Paclitaxel 45mg/m2 IV Day 1 weekly x 6 cycles. He was started on concurrent chemoradiotherapy treatment and received a dose of 6000 cGy to the right upper lobe mass and mediastinal nodes (bilateral) in 30 fractions from 08/06/2021 to 09/16/2021 over 41 elapsed days. Last cycle chemotherapy: 09/10/2021 - 09/30/2021: Cycle 1, Day 1 Durvalumab 10mg/kg IV every 2 weeks immunotherapy x 1 year. After 11/11/2021 2-week dose, will change to flat dose 1500 mg IV every 4- week dosing to complete 1 year of adjuvant immunotherapy. ROS Details: All systems reviewed & no additional complaints except as documented Subjective/ROS - Narrative: CONSTITUTIONAL: Resolved fatigue (after chemoradiation completed), negative for fever or night sweats. HEAD AND NECK: Negative for changes in hearing and vision. Negative for mouth ulcers, nasal congestion and nasal drainage. No recurrence of prior epistaxis. PULMONARY: Late September 2021 ER for worsening right chest wall pain--regressionof tumor with necrosis and small infiltrate noted on CT. Now symptoms resolved. No significant cough. No hoarseness or dyspnea on exertion. CARDIOVASCULAR: Negative for claudication and irregular heartbeat/palpitations. No edema. GASTROINTESTINAL: Negative for abdominal pain, constipation, diarrhea, nausea, or vomiting. Improved appetite and improving dysphagia/resolved odynophagia as per HPI. GENITOURINARY: Negative for dysuria and hematuria. + h/o nephrolithiasis. ENDOCRINE: Negative for cold intolerance and heat intolerance. CENTRAL NERVOUS SYSTEM: Negative for gait disturbance and headache. No history of stroke. PSYCHIATRIC: Negative for anxiety or depression. DERMATOLOGICAL: Negative for pruritus and rash. Negative for suspicious skin lesions. MUSCULOSKELETAL: Negative for back pain and bone/joint symptoms. HEMATOLOGICAL: Negative for bleeding and easy bruising. Negative for history of transfusion or thromboembolic disease ALLERGY: Negative for environmental allergies and food allergies. PMFSH - History Attestation statement: The following information was validated with the patient. Source: Old Records Reviewed - Medical History Medical History: Medical History (Last Reviewed 11/11/21 @ 13:51 by Natacha Hess MD) Cough Hyperlipidemia Hypertensive heart disease Kidney stone Lung mass Shortness of breath - Surgical History Surgical History: Surgical History (Last Reviewed 11/11/21 @ 13:51 by Natacha Hess MD) History of carpal tunnel release History of neck surgery - Family History Family History: Family History (Last Reviewed 11/11/21 @ 13:51 by Natacha Hess MD) Father Heart disease Mother Diabetes Hypertension Sister Cancer - Social History Smoking Status: Former smoker Substance Use Type: None Home Medications & Allergies Allergies No Known Drug Allergies Allergy (Unknown, Verified 11/11/21 09:12) none Home Medications simvastatin 40 mg tablet (Zocor) 40 mg PO DAILY 02/26/18 [History Confirmed 11/11/21] aspirin 81 mg chewable tablet 81 mg PO DAILY #0 tab 02/27/18 [Rx Confirmed 11/11/21] hydrochlorothiazide 25 mg tablet 25 mg PO DAILY 30 Days #30 tab 02/27/18 [Rx Confirmed 11/11/21] carvedilol 3.125 mg tablet 3.125 mg PO Q12H 07/17/21 [History Confirmed 11/11/21] losartan 25 mg tablet 25 mg PO DAILY 07/17/21 [History Confirmed 11/11/21] ondansetron HCl 8 mg tablet 8 mg PO Q8H PRN #30 tab 08/05/21 [Rx Confirmed 11/11/21] hyaluronic chppug-oahjbusph-hxhw vera extract topical gel (RadiaPlexRx) 1 applicTOPICAL TID 08/25/21 [History Confirmed 11/11/21] hydrocortisone 1 % topical cream 1 applic TOPICAL TID 08/25/21 [History Confirmed 11/11/21] ibuprofen-diphenhydramine citrate 200 mg-38 mg tablet (Advil PM) 2 cap PO QHS 08/27/21 [History Confirmed 11/11/21] sucralfate 100 mg/mL oral suspension 5 ml PO QID 30 Days #600 ml 08/27/21 [Rx Confirmed 11/11/21] omeprazole magnesium 20 mg tablet,delayed release (Prilosec OTC) 20 mg PO DAILY 09/10/21 [History Confirmed 11/11/21] hyaluronic qfftgf-akclxfwim-xboy vera extract topical gel (RadiaPlexRx) 1 applicTOPICAL TID 09/15/21 [History Confirmed 11/11/21] oxycodone-acetaminophen 5 mg-325 mg tablet (Percocet) 1 tab PO Q4-6H PRN 09/15/21 [History Confirmed 11/11/21] azithromycin 250 mg tablet See Rx Instructions PO .COMPLEX #6 tab 10/07/21 [Rx Confirmed 11/11/21] Objective - Height/Weight Height/Weight: Height 5 ft 10 in Weight 119.295 kg BSA for Today's Weight 2.41 - Vital Signs Vital Signs: 11/11/21 09:13 Temperature 98.0 F Pulse Rate [Left Brachial] 100 H Respiratory Rate 20 Blood Pressure [Left Arm] 138/78 - Pain Right Chest Pain Intensity: 4 - Distress Screening Distress Screen Results: RN Distress Screening Start: 07/17/21 11:07 Freq: Status: Complete Protocol: Document 09/01/21 09:44 DB (Rec: 09/01/21 09:45 DB [id number]) Distress Screening Distress Score: 2 Emotional Concerns Feeling uncertain about the future Distress Screening Total 2 Physical Exam Narrative: CONSTITUTIONAL: The patient is in no acute distress. HEAD / FACE: Normocephalic; atraumatic, no scleral icterus. EYES: Pupils are equal and reactive to light. Conjunctivae and lids are benign in appearance. Ocular movement intact. EARS: Hearing grossly intact. NOSE / MOUTH / THROAT: Nose, mouth, tongue and oropharynx are benign in appearance. No signs of inflammation. NECK / THYROID: Neck is supple. Thyroid is symmetrical, without thyromegaly, masses or palpable nodules. LYMPHATIC: No palpable cervical, supraclavicular, axillary, or inguinal adenopathy. RESPIRATORY: Normal to inspection. Lungs--clear to auscultation bilaterally; no wheezes/crackles. CARDIOVASCULAR: Regular rate and rhythm. No murmurs, gallops, or rubs. VASCULAR: Carotid, radial, femoral and pedal pulses present bilaterally. No bruits. ABDOMEN: Bowel sounds normoactive. Soft, nontender and non-distended. No hepatosplenomegaly. No masses. GENITOURINARY: No CVA tenderness. INTEGUMENTARY: The skin is unremarkable. No rashes. No suspicious lesions BACK / SPINE: The back is nontender. MUSCULOSKELETAL: Normal musculature, no joint deformities or abnormalities, normal range of motion for all four extremities. EXTREMITIES: No edema, cyanosis or clubbing. No Nigel sign. NEUROLOGICAL: Alert and oriented. Cranial nerves intact. No gross motor or sensory deficits. Ambulates independently. PSYCHIATRIC: No anxiety or evidence of depression. - ECOG Performance Status ECOG Score: 1 Results - Labs Labs: Diagram of Most Recent CBC and CMP 11/10/21 16:12 11/10/21 16:12 Labs - Last 7 Days 11/10/21 16:12: PHA Creatinine Clear 83.16, Sodium 137, Potassium 3.4 L, Chloride 100, Carbon Dioxide 27.7, BUN 10, Creatinine 1.09, Est GFR ( Amer) > 60, Est GFR (Non-Af Amer) > 60, Glucose 117 H, Calcium 9.0, Total Bilirubin 0.4, AST 23, ALT 22, Alkaline Phosphatase 58, Total Protein 6.5, Albumin 3.5, Globulin 3.0, Albumin/Globulin Ratio 1.2 11/10/21 16:12: Corrected WBC 8.1, Uncorrected WBC Count 8.1, RBC 4.11, Hgb 12.5L, Hct 36.6 L, MCV 89.1, MCH 30.4, MCHC 34.1, RDW 17.8 H, Plt Count 337, MPV 7.1, Neut % (Auto) 65.5, Lymph % (Auto) 11.5, [place] % (Auto) 19.5, Eos % (Auto) 3.1, Baso % (Auto) 0.4, Neut # (Auto) 5.3, Lymph # (Auto) 0.9 L, [place] # (Auto) 1.6 H, Eos # (Auto) 0.3, Baso # (Auto) 0.0, Nucleated RBC % (auto) 0.1, PlateletEstimate Normal, Plt Morphology Comment Normal, RBC Morphology Normal 11/10/21 16:12: TSH 3rd Generation 1.97 - Impressions No new imaging for review. Assessment and Plan - TNM Staging Staging: Stage IIIB right upper lobe (overlapping sites involving right mainstem bronchus). No distant metastatic disease on PET/CT for final staging. 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 No distant metastatic disease on PET/CT, therefore we coordinated chemoradiation with weekly carboplatin/paclitaxel. He commenced weekly Carboplatin/Paclitaxel with radiation on 08/06/2021 and completed radiation therapy 09/16/2021. 08/12/2021: No toxicities other than mild increase in creatinine. 08/27/2021: Grade 1 odynophagia with decreased appetite. Added sucralfate slurry 1 g every 6 hours as needed for remainder of chemoradiation. 09/10/2021: Grade 1 fatigue; otherwise no significant toxicities to chemotherapy; weight is stable; stable anemia. Normal electrolytes. Minimal nausea and no significant pain other than some acid reflux like symptoms; well controlled with Prilosec. --Patient completed Cycle 6 weekly Carboplatin/Paclitaxel therapy (09/10/2021) and radiotherapy completed on 09/16/2021. 09/24/2021: Reviewed informed consent for Durvalumab maintenance therapy 10mg/kg IV every 2 weeks x 1 year (ok to change to monthly therapy if well tolerated). 10/14/2021: Patient was sent to ER for right chest wall pain on 10/07 following first durvalumab dose 09/30/2021. Noted to have regression of prior right middle lobe lesion and adenopathy with small adjacent infiltrate (this may be postradiation change but patient was placed on antibiotics). His pain has now completely resolved with no significant cough. Otherwise tolerating immunotherapy well. We will continue him on every 2-week dosing until receivingwhether he has recurrent chest discomfort or symptoms on durvalumab. 11/11/2021: Here for 4-week follow-up with complete resolution of his chest painand no cough or other immunotherapy toxicities. Labs reviewed with normal thyroid function. Since he is tolerating durvalumab well we will change durvalumab to every 4-week dosing 1500 mg IV. This will commence with next orders in 2 weeks 11/23/2021. Next follow-up with me in 6 weeks for toxicity check on immunotherapy. We will not repeat his chest CT until late December unless new symptoms arise. Patient and his express understanding and will followup as directed. Moderate complexity 35 minute visit for review of exam, labs, and toxicities on durvalumab therapy. (2) Encounter for antineoplastic immunotherapy No distant metastatic disease on PET/CT for staging (bilateral mediastinal and subcarinal adenopathy noted). Concurrent chemoradiation commenced 08/06/2021--Carboplatin AUC 2 IV and Paclitaxel 45mg/m2 IV weekly x 6-7 weeks. Tolerated well. He completed Cycle 6 weekly Carboplatin/Paclitaxel therapy 09/10/2021 and radiotherapy complete on 09/16/2021. Cycle 1 day 1 09/30/2021 durvalumab 10mg/kg IV every 2 weeks immunotherapy as noted above. Changing to flat dose durvalumab 1500 milligrams IV every 4 weeks with 11/23/2021 dose. He will complete 1 year of therapy if well-tolerated. Follow up with Dr. Hess in ~ 6 weeks to review labs and immunotherapy toxicities. - Chemo Plan Chemo Plan (Dose, Rate, Freq): Concurrent chemoradiation with Carboplatin AUC 2 IV Day 1 and Paclitaxel 45mg/m2IV Day 1 weekly x 6-7 weeks. Durvalumab 10mg/kg IV every 2 week immunotherapy x2 months then 1500mg IV q 4weeks to complete 1 year of therapy. Goal of Treatment: Curative - Time with Patient Time Spent with Patient (Follow Up Visit): 35 minutes - moderate complexity for immunotherapy toxicity review. Coordination of Care & Counseling Time: Greater than 50% of time spent with patient was for coordination of care (as documented) and [id number] counseling of patient and/or family. Dictated By: Natacha Hess MD DD/ 6 Signed By: <Electronically signed by MD Natacha Hess> 11/11/21 [address] [facility] Work Phone: [phone] 376-384312-02-2021 Progress note Author Charanjit Goldstein [facility] October 15, 2021 10:44am Note Date/Time October 15, 2021 1 0:20am [facility] [place] [place] [address] Rad Onc Follow Up Note - OP Signed Patient: Bert Yeung MR#: [id number] : 1950 Acct:[id number] Age/Sex: 70 / M Type: REG RCR Copies to: MD Howie Garner MD~ Subjective - Service Date/Time Date: 10/15/21 Time: 10:19 - Diagnosis [id number] Stage IIIc RUL lung ca - Chief Complaint F/U chemo/XRT for Stage IIIc lung ca - History of Present Illness 70 yo m with h/o Stage IIIc TeNe R lung ca. He was treated with chemo/XRT (Dr Hess) including 6000 cGy to RUL and mediastinal nodes dates 08/06/21--09/16/21. He did well during treatment but over the last 2 weeks he got sick with pain in RUL and cough with SOB. He was seen in ED and found to havbe a pneumonia for whch he received antibiotics. he is now feeling much better and is on immunotherapy (Darvalumab) and he is seen approx every 2 weeks. We are seeing him for his one month XRT f/u appt. I've closely reviewed the patient's oncologic, medical, surgical, social, and family history. Changes noted above. I also reviewed the patient's medicationsvia reconciliation, as per the nursing record. Only recent info not on ROS relates to his recent pneumonie. he now feels much better after antibiotics. - Review of Systems ROS: As per HPI. Objective Height 5 ft 10 in Weight 114 kg Temp 98.8 F 10/15/21 10:06 Pulse 81 10/15/21 10:06 Resp 20 10/15/21 10:06 BP 142/84 H 10/15/21 10:06 Pulse Ox 96 10/15/21 10:06 Pain: 0/10 Distress Screen Results: RN Distress Screening Start: 07/17/21 11:07 Freq: Status: Complete Protocol: Document 09/01/21 09:44 DB (Rec: 09/01/21 09:45 DB [id number]) Distress Screening Distress Score: 2 Emotional Concerns Feeling uncertain about the future Distress Screening Total 2 Karnofsky Performance Scale: 80%: Can perform normal activity with effort, some signs of disease Physical Exam: PE shos pleasant mid age m NAD. No cough or labored breathing Lungs essenrtially clear with occ rales at R base. Cardiac grossly WNL Abd neg with no HSM skel neg CORE MAKER nonfocal Results CBC & Chem 7: 09/29/21 16:55 09/29/21 16:55 Assessment & Plan (1) Malignant neoplasm of overlapping sites of right bronchus and lung Plan: He appears to have recovered well fom his post-treatment pneumonia. He remains on Darvalumab under care of Dr Hess. We will see him again in about 3 months orPRN. All questions answered. His most recent scan did show some good partial response in treated regions. Hopefully these sites will continue to show tumor shrinkage and he will not show new areas of progression. Charanjit Goldstein MD Total Time Spent with Patient: Less than 30 minutes More than 50% of time allotted to patient education, answering questions, and coordinating care. 30 min spent in rad onc f/u N.B: Voice-recognition software was used in the creation of this note. Efforts were made to detect and correct typographical and/or grammatical errors;please excuse them should you find any. Dictated By: Charanjit Goldstein MD DD/ [id number] Signed By: <Electronically signed by Charanjit Goldstein MD> 10/15/21 10[address] [facility] Work Phone: [phone]) 590-477312-01-2021 Progress note Author Natacha Hess [facility] October 14, 2021 10:05am Note Date/Time October 14, 2021 9 :30am [facility] [place] [place] [facility] at [address] [address] Hem/Onc Follow Up Note - OP Signed Patient: Bert Yeung MR#: [id number] : 1950 Acct:[id number] Age/Sex: 70 / M Type: REG RCR Copies to: Howie Smith DO Alicia Ann MD~ Subjective Date/Time of Service: Date of Service: 10/14/2021 Time of Service: 09:30 Chief Complaint: Patient is here today for a week follow up visit and to go overlabs. He has treatment today. He states his chest feels better today HPI: 10/14/2021: Standing was sent to ER 1 week ago (10/07/2021) after presenting withsevere right-sided chest pain for about 1 week. He did not report worsening with inspiration but was worse with eating. Chest CT showed regression of priorright middle lobe tumor with internal necrosis and regression of prior adenopathy. There was an infiltrate posterior to his mass and no evidence of pulmonary embolism. He completed a course of azithromycin and notes that his chest pain is now completely resolved. He has no dyspnea with exertion or cough. Otherwise tolerated initial Durvalumab dose well--few loose stools the evening of his dose but no anny diarrhea, no skin rashes, and laboratories are stable. He also notes that Dr. Smith recommended starting N-acetylcysteine supplementation for his immunity, however I asked him to hold this for now sincehe has only recently started durvalumab and I will research whether this is indicated with his immunotherapy. --We will continue every 2-week durvalumab to see if he has any further toxicities, then follow-up in 1 month. If well-tolerated we will change to every 4-week dosing. 09/24/2021: Bert presents with his to discuss commencing immunotherapy after completing 6 weeks of concurrent chemoradiation (last dose chemo 09/10, last radiation 09/16). Fatigue improved but he has had 3 episodes of epistaxis over the past week (longest lasting about 6-7 minutes). Improved with saline nasal spray--offered ENT eval but he wants to observe. Mild dyspnea on exertionand cough. Today we discussed immunotherapy maintenance with Durvalumab over one year (initially every 2 weeks, then every 4 weeks if well tolerated). Goal of therapy is curative. Today we reviewed immunotherapy (checkpoint inhibitor) counseling for Durvalumab. Common toxicities were reviewed to include infusion reactions and allergic reactions, fatigue, skin rashes, visual and ocular toxicities, diarrhea, abdominal pain from pancreatitis, and abnormal thyroid, adrenal, and pituitary function. Other toxicities may include pneumonitis, sexual side effects, neurologic, hepatic and renal toxicities. The patient signed informed consent and will follow-up as directed. I will see him C2D1 durvalumab for tox check. 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 He has tolerated his treatment exceptionally well and has had very few side effects/toxicities to therapy. He reports good appetite, stable weight.Essentially has no pain and has only required 4 doses of Zofran for breakthroughnausea. He has mild GERD-like symptoms, well controlled with Prilosec. Specifically denies any issues with headaches, fever/chills, cough, shortness ofbreath, bowel/bladder problems, peripheral neuropathy, skin rash or lower extremity edema. --He will complete radiotherapy on Tuesday, September 16, 2021 and his last cycle (#6) weekly Carbo/Taxol will be given today. 08/27/2021: Here for week for follow-up of weekly carboplatin paclitaxel. Fatigue mildly increased with decreased appetite and minimal dysphagia but does not need to take additional medicine other than Tylenol for this. Otherwise no cough, dyspnea, fever, chills and no significant peripheral neuropathy. He willfollow-up in 2 weeks for chemoradiation toxicity visit with our nurse practitioner. I will then see him in 4 weeks after completion of chemoradiationand will discuss whether he gets consolidation carboplatin paclitaxel after restaging scan or continue with maintenance immunotherapy alone. 08/12/2021: Started concurrent chemoradiation with weekly Carboplatin/Paclitaxelone week ago. Tolerating well without cough, dyspnea, chest pain, bowel or bladder symptoms, or neuropathy. Will continue to follow every 2 weeks while onchemoradiation--likely candidate for one year immunotherapy with Imfinzi if response. 07/17/2021: This is a 70 yo male accompanied by his for new diagnosis of right upper lobe mass, wrapping around right mainstem bronchus, with associated mediastinal adenopathy. He apparently had right upper lobe pneumonia in 2019, no imaging since that time. He is a former smoker, prior 40 year history, quit about 18 years ago. About 1-2 months ago he had persistent nonproductive cough without hemoptysis. Increased dyspnea, but his notes he has had chronic dyspnea over the past 4 years. Slow nonquantified weight loss, decreased appetite, hoarseness, and mild right chest discomfort. CT Chest imaging at [facility] on 06/23/2021 showed a large lobulated mass of the superior segment of the right upper lobe extending to the hilum. There appears to be invasion of themass into the right mainstem bronchus. The mass measures approximately 5.5 x 7.6x 6.0 cm. There is a low density lesion in the liver that appears to be a cyst. 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 He does not have other significant comorbidities, prior malignancy, or known family history. We discussed that involvement of the right mainstem bronchus and mediastinum is consistent with likely Stage III lung cancer, but he needs a PET/CT to exclude liver metastases. If no distant metastatic disease on PET/CT, we will coordinate chemoradiation with weekly carboplatin/paclitaxel. I ordered PET/CT, radiation oncology consultation and reviewed informed consent for Carboplatin/Paclitaxel. I will see him the same day as Radiation Oncology consult to review PET/CT. He did sign informed consent today to expedite concurrent chemoradiation if no distant metastatic disease. We will also contact pathology to add PDL1 status--if metastatic disease, he may be a candidate for immunotherapy +/- chemotherapy. Today we reviewed chemotherapy counseling for weekly Carboplatin and Paclitaxel. Goal of therapy is curative if stage III. Common toxicities were reviewed to include infusion reactions/allergic reactions, myelosuppression, fatigue, nausea, vomiting, constipation, diarrhea, mouth sores, and alopecia. Other toxicities may include pneumonitis, neurologic, hepatic and renal toxicities. Risk of secondary malignancy due to effects of chemotherapy on bone marrow. Thepatient signed informed consent and will follow-up as directed. - Summary of Therapies Summary of Therapies: 08/06/2021: Commenced concurrent chemoradiation with Carboplatin AUC 2 IV Day 1 and Paclitaxel 45mg/m2 IV Day 1 weekly x 6 cycles. He was started on concurrent chemoradiotherapy treatment and received a dose of 6000 cGy to the right upper lobe mass and mediastinal nodes (bilateral) in 30 fractions from 08/06/2021 to 09/16/2021 over 41 elapsed days. Last cycle chemotherapy: 09/10/2021 - 09/30/2021: Cycle 1, Day 1 Durvalumab 10mg/kg IV every 2 weeks immunotherapy x 1 year (may change to monthly dosing if well tolerated) ROS Details: All systems reviewed & no additional complaints except as documented Subjective/ROS - Narrative: CONSTITUTIONAL: Positive for fatigue (improving after chemoradiation completed),negative for fever or night sweats. HEAD AND NECK: Negative for changes in hearing and vision. Negative for mouth ulcers, nasal congestion and nasal drainage. 3 episodes of epistaxis (both nostrils) over the past week as per HPI. PULMONARY: 1 week ago he was seen in the ER for worsening right chest wall pain--regression of tumor with necrosis and small infiltrate noted on CT. Now symptoms resolved. No significant cough. No hoarseness or dyspnea on exertion. CARDIOVASCULAR: Negative for claudication and irregular heartbeat/palpitations. No edema. GASTROINTESTINAL: Negative for abdominal pain, constipation, diarrhea, nausea, or vomiting. Improved appetite and improving dysphagia/resolved odynophagia as per HPI. GENITOURINARY: Negative for dysuria and hematuria. + h/o nephrolithiasis. ENDOCRINE: Negative for cold intolerance and heat intolerance. CENTRAL NERVOUS SYSTEM: Negative for gait disturbance and headache. No history of stroke. PSYCHIATRIC: Negative for anxiety or depression. DERMATOLOGICAL: Negative for pruritus and rash. Negative for suspicious skin lesions. MUSCULOSKELETAL: Negative for back pain and bone/joint symptoms. HEMATOLOGICAL: Negative for bleeding and easy bruising. Negative for history of transfusion or thromboembolic disease ALLERGY: Negative for environmental allergies and food allergies. PMF - History Attestation statement: The following information was validated with the patient. Source: Old Records Reviewed - Medical History Medical History: Medical History (Last Reviewed 10/14/21 @ 09:58 by Natacha Hess MD) Cough Hyperlipidemia Hypertensive heart disease Kidney stone Lung mass Shortness of breath - Surgical History Surgical History: Surgical History (Last Reviewed 10/14/21 @ 09:58 by Natacha Hess MD) History of carpal tunnel release History of neck surgery - Family History Family History: Family History (Last Reviewed 10/14/21 @ 09:58 by Natacha Hess MD) Father Heart disease Mother Diabetes Hypertension Sister Cancer - Social History Smoking Status: Former smoker Substance Use Type: None Home Medications & Allergies Allergies No Known Drug Allergies Allergy (Unknown, Verified 10/14/21 09:17) none Home Medications simvastatin 40 mg tablet (Zocor) 40 mg PO DAILY 02/26/18 [History Confirmed 10/14/21] aspirin 81 mg chewable tablet 81 mg PO DAILY #0 tab 02/27/18 [Rx Confirmed 10/14/21] hydrochlorothiazide 25 mg tablet 25 mg PO DAILY 30 Days #30 tab 02/27/18 [Rx Confirmed 10/14/21] carvedilol 3.125 mg tablet 3.125 mg PO Q12H 07/17/21 [History Confirmed 10/14/21] losartan 25 mg tablet 25 mg PO DAILY 07/17/21 [History Confirmed 10/14/21] ondansetron HCl 8 mg tablet 8 mg PO Q8H PRN #30 tab 08/05/21 [Rx Confirmed 10/14/21] hyaluronic bztfmp-fljgcinnb-bycj vera extract topical gel (RadiaPlexRx) 1 applicTOPICAL TID 08/25/21 [History Confirmed 10/14/21] hydrocortisone 1 % topical cream 1 applic TOPICAL TID 08/25/21 [History Confirmed 10/14/21] ibuprofen-diphenhydramine citrate 200 mg-38 mg tablet (Advil PM) 2 cap PO QHS 08/27/21 [History Confirmed 10/14/21] sucralfate 100 mg/mL oral suspension 5 ml PO QID 30 Days #600 ml 08/27/21 [Rx Confirmed 10/14/21] omeprazole magnesium 20 mg tablet,delayed release (Prilosec OTC) 20 mg PO DAILY 09/10/21 [History Confirmed 10/14/21] hyaluronic qxausr-iinqzsfby-jldc vera extract topical gel (RadiaPlexRx) 1 applicTOPICAL TID 09/15/21 [History Confirmed 10/14/21] oxycodone-acetaminophen 5 mg-325 mg tablet (Percocet) 1 tab PO Q4-6H PRN 09/15/21 [History Confirmed 10/14/21] azithromycin 250 mg tablet See Rx Instructions PO .COMPLEX #6 tab 10/07/21 [Rx Confirmed 10/14/21] Objective - Height/Weight Height/Weight: Height 5 ft 10 in Weight 113.852 kg BSA for Today's Weight 2.38 - Vital Signs Vital Signs: 10/14/21 09:19 Temperature 98.0 F Pulse Rate [Left Brachial] 86 Respiratory Rate 20 Blood Pressure [Left Arm] 147/82 H 02 Sat by Pulse Oximetry 96 - Pain Right Chest Pain Intensity: 4 - Distress Screening Distress Screen Results: RN Distress Screening Start: 07/17/21 11:07 Freq: Status: Complete Protocol: Document 09/01/21 09:44 DB (Rec: 09/01/21 09:45 DB [email or web address]) Distress Screening Distress Score: 2 Emotional Concerns Feeling uncertain about the future Distress Screening Total 2 Physical Exam Narrative: CONSTITUTIONAL: The patient is in no acute distress. HEAD / FACE: Normocephalic; atraumatic, no scleral icterus. EYES: Pupils are equal and reactive to light. Conjunctivae and lids are benign in appearance. Ocular movement intact. EARS: Hearing grossly intact. NOSE / MOUTH / THROAT: Nose, mouth, tongue and oropharynx are benign in appearance. No signs of inflammation. NECK / THYROID: Neck is supple. Thyroid is symmetrical, without thyromegaly, masses or palpable nodules. LYMPHATIC: No palpable cervical, supraclavicular, axillary, or inguinal adenopathy. RESPIRATORY: Normal to inspection. Lungs--clear to auscultation bilaterally; no wheezes/crackles. CARDIOVASCULAR: Regular rate and rhythm. No murmurs, gallops, or rubs. VASCULAR: Carotid, radial, femoral and pedal pulses present bilaterally. No bruits. ABDOMEN: Bowel sounds normoactive. Soft, nontender and non-distended. No hepatosplenomegaly. No masses. GENITOURINARY: No CVA tenderness. INTEGUMENTARY: The skin is unremarkable. No rashes. No suspicious lesions BACK / SPINE: The back is nontender. MUSCULOSKELETAL: Normal musculature, no joint deformities or abnormalities, normal range of motion for all four extremities. EXTREMITIES: No edema, cyanosis or clubbing. No Nigel sign. NEUROLOGICAL: Alert and oriented. Cranial nerves intact. No gross motor or sensory deficits. Ambulates independently. PSYCHIATRIC: No anxiety or evidence of depression. - ECOG Performance Status ECOG Score: 1 Results - Labs Labs: Diagram of Most Recent CBC and CMP 09/29/21 16:55 09/29/21 16:55 - Impressions CTA chest with PE protocol TECHNIQUE: Axial imaging with 2-D and 3-D reconstruction. 80cc of Isovue-[address] exam was performed using one or more the following dose reduction techniques: Automated exposure control, adjustment of the MA and/or Kvaccording to patient size, or use of the iterative reconstruction technique. History: Right-sided chest pain. Productive cough. COMPARISON: 06/23/21 The thyroid gland is normal. Central airway is patent. Esophagus is normal in course and caliber. Heart is not enlarged. No pericardial effusion is seen. Decrease in size of mediastinal adenopathy identified. No hilar mass or adenopathy is seen. No pulmonary embolus is identified. No thoracic aortic aneurysm is seen. Atherosclerosis identified. RIGHT midlung mass is smaller compared to prior examination with regions of air likely related to necrosis.. The cardiac changes identified consistent with therapy.. Minimal consolidation adjacent to the mass identified. This may correspond withpost obstructive changes. Mild RIGHT hemidiaphragm elevation identified. No pleural effusion identified. No pneumothorax identified. No chest wall abnormality seen. The bony structures are intact. Similar RIGHT hepatic cyst identified. Adrenal glands unremarkable. CT/CT angio chest PE protocol IMPRESSION: No pulmonary embolus. Reduction size of large RIGHT midlung mass and reduction in mediastinal adenopathy consistent with response to chemotherapy. There is also necrosis identified within the lesion. There is also an adjacent postobstructive changes/subtle infiltrate. Impression dictated by: Joesph Cleary M.D.10/07/2021 4:43 PM Assessment and Plan - TNM Staging Staging: Stage IIIB right upper lobe (overlapping sites involving right mainstem bronchus). No distant metastatic disease on PET/CT for final staging. 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 No distant metastatic disease on PET/CT, therefore we coordinated chemoradiation with weekly carboplatin/paclitaxel. He commenced weekly Carboplatin/Paclitaxel with radiation on 08/06/2021 and today he will be receiving #6 Carboplatin/Paclitaxel and is scheduled to completed radiation therapy on 09/16/2021. 08/12/2021: No toxicities other than mild increase in creatinine. 08/27/2021: Grade 1 odynophagia with decreased appetite. Added sucralfate slurry 1 g every 6 hours as needed for remainder of chemoradiation. 09/10/2021: Grade 1 fatigue; otherwise no significant toxicities to chemotherapy; weight is stable; stable anemia. Normal electrolytes. Minimal nausea and no significant pain other than some acid reflux like symptoms; well controlled with Prilosec. --Patient completed Cycle 6 weekly Carboplatin/Paclitaxel therapy (09/10/2021) and radiotherapy to complete on 09/16/2021. 09/24/2021: Reviewed informed consent for Durvalumab maintenance therapy 10mg/kg IV every 2 weeks x 1 year (ok to change to monthly therapy if well tolerated). 10/14/2021: Patient was sent to ER for right chest wall pain on 10/07 following first durvalumab dose 09/30/2021. Noted to have regression of prior right middle lobe lesion and adenopathy with small adjacent infiltrate (this may be postradiation change but patient was placed on antibiotics). His pain has now completely resolved with no significant cough. Otherwise tolerating immunotherapy well. We will continue him on every 2-week dosing until receiving whether he has recurrent chest discomfort or symptoms on durvalumab. Next follow-up with me in 4 weeks for toxicity check on immunotherapy. We will not repeat his chest CT since this was just performed in emergency department. End of radiation therapy PET/CT deferred until 3 months after completion of chemoradiation. Moderate complexity 35 minute visit for review of recent ER visits and toxicities on durvalumab therapy. (2) Right-sided chest wall pain Work-up in ER 1 week ago without PE and symptoms have resolved since antibiotics. May be related to tumor necrosis on follow-up CT. We will continue to follow. Currently not utilizing any pain medication. (3) Epistaxis Resolved from prior visits and he maintains normal platelet counts. Treating conservatively with nasal saline. Declines ENT evaluation at this time. (4) Radiation-induced esophagitis Mild odynophagia and decreased appetite treated with sucralfate 3 every 6 hours as noted above and addition of Prilosec 20 mg OTC. This symptom has improved since completion of radiation. (5) Encounter for antineoplastic immunotherapy No distant metastatic disease on PET/CT for staging (bilateral mediastinal and subcarinal adenopathy noted). Concurrent chemoradiation commenced 08/06/2021--Carboplatin AUC 2 IV and Paclitaxel 45mg/m2 IV weekly x 6-7 weeks. Tolerated well. He completed Cycle 6 weekly Carboplatin/Paclitaxel therapy 09/10/2021 and radiotherapy complete on 09/16/2021. Cycle 1 day 1 09/30/2021 durvalumab 10mg/kg IV every 2 weeks immunotherapy as noted above. Will complete 1 year of therapy if well-tolerated. Follow up with Dr. Hess in ~ 4 weeks to review labs and immunotherapy toxicities. (6) Chest pain - Chemo Plan Chemo Plan (Dose, Rate, Freq): Concurrent chemoradiation with Carboplatin AUC 2 IV Day 1 and Paclitaxel 45mg/m2IV Day 1 weekly x 6-7 weeks. Durvalumab 10mg/kg IV every 2 week immunotherapy x1 year Goal of Treatment: Curative - Time with Patient Time Spent with Patient (Follow Up Visit): 35 minutes - moderate complexity for immunotherapy consent Coordination of Care & Counseling Time: Greater than 50% of time spent with patient was for coordination of care (as documented) and [id number] counseling of patient and/or family. Dictated By: Natacha Hess MD DD/ 9 Signed By: <Electronically signed by MD Natacha Hess> 10/14/21 [address] [facility] Work Phone: [phone]) 894-185211-11-2021 Progress note Author Natacha Hess [facility] September 24, 2021 6:43pm Note Date/Time September 24, 2021 9:24am [facility] [place] [place] [facility] at [address] [address] Hem/Onc Follow Up Note - OP Signed Patient: Bert Yeung MR#: [id number] : 1950 Acct:[id number] Age/Sex: 70 / M Type: REG RCR Copies to: Howie Fulton MD~ Subjective Date/Time of Service: Date of Service: 09/24/2021 Time of Service: 09:24 Chief Complaint: Patient is here today for 2 week follow up visit for malignant neoplasm of right upper lobe of lung. He has been having bloody noses, but not within the last two days HPI: 09/24/2021: Bert presents with his to discuss commencing immunotherapy after completing 6 weeks of concurrent chemoradiation (last dose chemo 09/10, last radiation 09/16). Fatigue improved but he has had 3 episodes of epistaxis over the past week (longest lasting about 6-7 minutes). Improved with saline nasal spray--offered ENT eval but he wants to observe. Mild dyspnea on exertionand cough. Today we discussed immunotherapy maintenance with Durvalumab over one year (initially every 2 weeks, then every 4 weeks if well tolerated). Goal of therapy is curative. Today we reviewed immunotherapy (checkpoint inhibitor) counseling for Durvalumab. Common toxicities were reviewed to include infusion reactions and allergic reactions, fatigue, skin rashes, visual and ocular toxicities, diarrhea, abdominal pain from pancreatitis, and abnormal thyroid, adrenal, and pituitary function. Other toxicities may include pneumonitis, sexual side effects, neurologic, hepatic and renal toxicities. The patient signed informed consent and will follow-up as directed. I will see him C2D1 durvalumab for tox check. 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 He has tolerated his treatment exceptionally well and has had very few side effects/toxicities to therapy. He reports good appetite, stable weight.Essentially has no pain and has only required 4 doses of Zofran for breakthroughnausea. He has mild GERD-like symptoms, well controlled with Prilosec. Specifically denies any issues with headaches, fever/chills, cough, shortness ofbreath, bowel/bladder problems, peripheral neuropathy, skin rash or lower extremity edema. --He will complete radiotherapy on Tuesday, September 16, 2021 and his last cycle (#6) weekly Carbo/Taxol will be given today. 08/27/2021: Here for week for follow-up of weekly carboplatin paclitaxel. Fatigue mildly increased with decreased appetite and minimal dysphagia but does not need to take additional medicine other than Tylenol for this. Otherwise no cough, dyspnea, fever, chills and no significant peripheral neuropathy. He willfollow-up in 2 weeks for chemoradiation toxicity visit with our nurse practitioner. I will then see him in 4 weeks after completion of chemoradiationand will discuss whether he gets consolidation carboplatin paclitaxel after restaging scan or continue with maintenance immunotherapy alone. 08/12/2021: Started concurrent chemoradiation with weekly Carboplatin/Paclitaxelone week ago. Tolerating well without cough, dyspnea, chest pain, bowel or bladder symptoms, or neuropathy. Will continue to follow every 2 weeks while onchemoradiation--likely candidate for one year immunotherapy with Imfinzi if response. 07/17/2021: This is a 70 yo male accompanied by his for new diagnosis of right upper lobe mass, wrapping around right mainstem bronchus, with associated mediastinal adenopathy. He apparently had right upper lobe pneumonia in 2019, no imaging since that time. He is a former smoker, prior 40 year history, quit about 18 years ago. About 1-2 months ago he had persistent nonproductive cough without hemoptysis. Increased dyspnea, but his notes he has had chronic dyspnea over the past 4 years. Slow nonquantified weight loss, decreased appetite, hoarseness, and mild right chest discomfort. CT Chest imaging at [facility] on 06/23/2021 showed a large lobulated mass of the superior segment of the right upper lobe extending to the hilum. There appears to be invasion of themass into the right mainstem bronchus. The mass measures approximately 5.5 x 7.6x 6.0 cm. There is a low density lesion in the liver that appears to be a cyst. 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 He does not have other significant comorbidities, prior malignancy, or known family history. We discussed that involvement of the right mainstem bronchus and mediastinum is consistent with likely Stage III lung cancer, but he needs a PET/CT to exclude liver metastases. If no distant metastatic disease on PET/CT, we will coordinate chemoradiation with weekly carboplatin/paclitaxel. I ordered PET/CT, radiation oncology consultation and reviewed informed consent for Carboplatin/Paclitaxel. I will see him the same day as Radiation Oncology consult to review PET/CT. He did sign informed consent today to expedite concurrent chemoradiation if no distant metastatic disease. We will also contact pathology to add PDL1 status--if metastatic disease, he may be a candidate for immunotherapy +/- chemotherapy. Today we reviewed chemotherapy counseling for weekly Carboplatin and Paclitaxel. Goal of therapy is curative if stage III. Common toxicities were reviewed to include infusion reactions/allergic reactions, myelosuppression, fatigue, nausea, vomiting, constipation, diarrhea, mouth sores, and alopecia. Other toxicities may include pneumonitis, neurologic, hepatic and renal toxicities. Risk of secondary malignancy due to effects of chemotherapy on bone marrow. Thepatient signed informed consent and will follow-up as directed. - Summary of Therapies Summary of Therapies: 08/06/2021: Commenced concurrent chemoradiation with Carboplatin AUC 2 IV Day 1 and Paclitaxel 45mg/m2 IV Day 1 weekly x 6 cycles. He was started on concurrent chemoradiotherapy treatment and received a dose of 6000 cGy to the right upper lobe mass and mediastinal nodes (bilateral) in 30 fractions from 08/06/2021 to 09/16/2021 over 41 elapsed days. Last cycle chemotherapy: 09/10/2021 - 09/24/2021: Consented for Durvalumab 10mg/kg IV every 2 weeks immunotherapy x1 year (may change to monthly dosing if well tolerated) ROS Details: All systems reviewed & no additional complaints except as documented Subjective/ROS - Narrative: CONSTITUTIONAL: Positive for fatigue (improving after chemoradiation completed),negative for fever or night sweats. HEAD AND NECK: Negative for changes in hearing and vision. Negative for mouth ulcers, nasal congestion and nasal drainage. 3 episodes of epistaxis (both nostrils) over the past week as per HPI. PULMONARY: Positive for mild right chest pain, mild persistent cough (improving). No hoarseness or dyspnea on exertion. CARDIOVASCULAR: Negative for claudication and irregular heartbeat/palpitations. No edema. GASTROINTESTINAL: Negative for abdominal pain, constipation, diarrhea, nausea, or vomiting. Improved appetite and imrproving dysphagia/mild odynophagia as perHPI. GENITOURINARY: Negative for dysuria and hematuria. + h/o nephrolithiasis. ENDOCRINE: Negative for cold intolerance and heat intolerance. CENTRAL NERVOUS SYSTEM: Negative for gait disturbance and headache. No history of stroke. PSYCHIATRIC: Negative for anxiety or depression. DERMATOLOGICAL: Negative for pruritus and rash. Negative for suspicious skin lesions. MUSCULOSKELETAL: Negative for back pain and bone/joint symptoms. HEMATOLOGICAL: Negative for bleeding and easy bruising. Negative for history of transfusion or thromboembolic disease ALLERGY: Negative for environmental allergies and food allergies. PMFSH - History Attestation statement: The following information was validated with the patient. Source: Old Records Reviewed - Medical History Medical History: Medical History (Last Reviewed 09/24/21 @ 18:34 by Natacha Hess MD) Cough Hyperlipidemia Hypertensive heart disease Kidney stone Lung mass Shortness of breath - Surgical History Surgical History: Surgical History (Last Reviewed 09/24/21 @ 18:34 by Natacha Hess MD) History of carpal tunnel release History of neck surgery - Family History Family History: Family History (Last Reviewed 09/24/21 @ 18:34 by Natacha Hess MD) Father Heart disease Mother Diabetes Hypertension Sister Cancer - Social History Smoking Status: Former smoker Substance Use Type: None Home Medications & Allergies Allergies No Known Drug Allergies Allergy (Unknown, Verified 09/24/21 09:18) none Home Medications simvastatin 40 mg tablet (Zocor) 40 mg PO DAILY 02/26/18 [History Confirmed 09/24/21] aspirin 81 mg chewable tablet 81 mg PO DAILY #0 tab 02/27/18 [Rx Confirmed 09/24/21] hydrochlorothiazide 25 mg tablet 25 mg PO DAILY 30 Days #30 tab 02/27/18 [Rx Confirmed 09/24/21] carvedilol 3.125 mg tablet 3.125 mg PO Q12H 07/17/21 [History Confirmed 09/24/21] losartan 25 mg tablet 25 mg PO DAILY 07/17/21 [History Confirmed 09/24/21] ondansetron HCl 8 mg tablet 8 mg PO Q8H PRN #30 tab 08/05/21 [Rx Confirmed 09/24/21] hyaluronic rnixbq-mnamtrxuu-xhse vera extract topical gel (RadiaPlexRx) 1 applicTOPICAL TID 08/25/21 [History Confirmed 09/24/21] hydrocortisone 1 % topical cream 1 applic TOPICAL TID 08/25/21 [History Confirmed 09/24/21] ibuprofen-diphenhydramine citrate 200 mg-38 mg tablet (Advil PM) 2 cap PO QHS 08/27/21 [History Confirmed 09/24/21] sucralfate 100 mg/mL oral suspension 5 ml PO QID 30 Days #600 ml 08/27/21 [Rx Confirmed 09/24/21] omeprazole magnesium 20 mg tablet,delayed release (Prilosec OTC) 20 mg PO DAILY 09/10/21 [History Confirmed 09/24/21] hyaluronic tkykqp-rgcaxbdlh-ebge vera extract topical gel (RadiaPlexRx) 1 applicTOPICAL TID 09/15/21 [History Confirmed 09/24/21] oxycodone-acetaminophen 5 mg-325 mg tablet (Percocet) 1 tab PO Q4-6H PRN 09/15/21 [History Confirmed 09/24/21] Objective - Height/Weight Height/Weight: Height 5 ft 10 in Weight 113.852 kg BSA for Today's Weight 2.38 - Vital Signs Vital Signs: 09/24/21 09:19 Temperature 98.0 F Pulse Rate [Left Brachial] 80 Respiratory Rate 20 Blood Pressure [Left Arm] 135/83 02 Sat by Pulse Oximetry 96 - Pain Right Chest Pain Intensity: 4 - Distress Screening Distress Screen Results: RN Distress Screening Start: 07/17/21 11:07 Freq: Status: Complete Protocol: Document 09/01/21 09:44 DB (Rec: 09/01/21 09:45 DB [email or web address]) Distress Screening Distress Score: 2 Emotional Concerns Feeling uncertain about the future Distress Screening Total 2 Physical Exam Narrative: CONSTITUTIONAL: The patient is in no acute distress. HEAD / FACE: Normocephalic; atraumatic, no scleral icterus. EYES: Pupils are equal and reactive to light. Conjunctivae and lids are benign in appearance. Ocular movement intact. EARS: Hearing grossly intact. NEUROLOGICAL: Alert and oriented. Cranial nerves intact. No gross motor or sensory deficits. Ambulates independently. PSYCHIATRIC: No anxiety or evidence of depression. Physical exam deferred, see exam from 09/10/2021 below. NOSE / MOUTH / THROAT: Nose, mouth, tongue and oropharynx are benign in appearance. No signs of inflammation. NECK / THYROID: Neck is supple. Thyroid is symmetrical, without thyromegaly, masses or palpable nodules. LYMPHATIC: No palpable cervical, supraclavicular, axillary, or inguinal adenopathy. RESPIRATORY: Normal to inspection. Lungs--clear to auscultation bilaterally; no wheezes/crackles. CARDIOVASCULAR: Regular rate and rhythm. No murmurs, gallops, or rubs. VASCULAR: Carotid, radial, femoral and pedal pulses present bilaterally. No bruits. ABDOMEN: Bowel sounds normoactive. Soft, nontender and non-distended. No hepatosplenomegaly. No masses. GENITOURINARY: No CVA tenderness. INTEGUMENTARY: The skin is unremarkable. No rashes. No suspicious lesions BACK / SPINE: The back is nontender. MUSCULOSKELETAL: Normal musculature, no joint deformities or abnormalities, normal range of motion for all four extremities. EXTREMITIES: No edema, cyanosis or clubbing. No Nigel sign. - ECOG Performance Status ECOG Score: 1 Results - Labs Labs: Diagram of Most Recent CBC and CMP 09/09/21 09:21 09/09/21 09:21 - Impressions No new imaging for review. Assessment and Plan - TNM Staging Staging: Stage IIIB right upper lobe (overlapping sites involving right mainstem bronchus). No distant metastatic disease on PET/CT for final staging. 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 No distant metastatic disease on PET/CT, therefore we coordinated chemoradiation with weekly carboplatin/paclitaxel. He commenced weekly Carboplatin/Paclitaxel with radiation on 08/06/2021 and today he will be receiving #6 Carboplatin/Paclitaxel and is scheduled to completed radiation therapy on 09/16/2021. 08/12/2021: No toxicities other than mild increase in creatinine. 08/27/2021: Grade 1 odynophagia with decreased appetite. Added sucralfate slurry 1 g every 6 hours as needed for remainder of chemoradiation. 09/10/2021: Grade 1 fatigue; otherwise no significant toxicities to chemotherapy; weight is stable; stable anemia. Normal electrolytes. Minimal nausea and no significant pain other than some acid reflux like symptoms; well controlled with Prilosec. --Patient completed Cycle 6 weekly Carboplatin/Paclitaxel therapy (09/10/2021) and radiotherapy to complete on 09/16/2021. 09/24/2021: Reviewed informed consent for Durvalumab maintenance therapy 10mg/kg IV every 2 weeks x 1 year (ok to change to monthly therapy if well tolerated). Follow up with Dr. Hess in ~ 2 weeks for toxicity check on immunotherapy. Willplan restaging CT Chest in mid October. PET/CT deferred until 3 months after completion of chemoradiation. Moderate complexity 35 minute visit. (2) Epistaxis Normal platelet counts. Treating conservatively with nasal saline. Declines ENT evaluation at this time. (3) Radiation-induced esophagitis Mild odynophagia and decreased appetite treated with sucralfate 3 every 6 hours as noted above and addition of Prilosec 20 mg OTC (4) Encounter for antineoplastic immunotherapy No distant metastatic disease on PET/CT for staging (bilateral mediastinal and subcarinal adenopathy noted). Concurrent chemoradiation commenced 08/06/2021--Carboplatin AUC 2 IV and Paclitaxel 45mg/m2 IV weekly x 6-7 weeks. Tolerated well. He completed Cycle 6 weekly Carboplatin/Paclitaxel therapy 09/10/2021 and radiotherapy complete on 09/16/2021. Consented 09/24/2021 to durvalumab 10mg/kg IV every 2 weeks immunotherapy as noted above Follow up with Dr. Hess in ~ 2 weeks to review labs and immunotherapy toxicities. - Chemo Plan Chemo Plan (Dose, Rate, Freq): Concurrent chemoradiation with Carboplatin AUC 2 IV Day 1 and Paclitaxel 45mg/m2IV Day 1 weekly x 6-7 weeks. Durvalumab 10mg/kg IV every 2 week immunotherapy x1 year Goal of Treatment: Curative - Time with Patient Time Spent with Patient (Follow Up Visit): 35 minutes - moderate complexity for immunotherapy consent Coordination of Care & Counseling Time: Greater than 50% of time spent with patient was for coordination of care (as documented) and [id number] counseling of patient and/or family. Dictated By: Natacha Hess MD DD/ 3 Signed By: <Electronically signed by MD Natacha Hess> 09/24/21 1843 [facility] Work Phone: [phone] 168-590210-14-2021 Progress note Author Natacha Hess [facility] August 27, 2021 4:10pm Note Date/Time August 27, 2021 8 :46am [facility] [place] [place] [address] Hem/Onc Follow Up Note - OP Signed Patient: Bert Yeung MR#: [id number] : 1950 Acct:[id number] Age/Sex: 70 / M Type: REG RCR Copies to: Howie Fulton MD~ Subjective Date/Time of Service: Date of Service: 08/27/2021 Time of Service: 08:46 Chief Complaint: Patient is here for 2 two week follow up visit and toxicity check. He does not have a good appetite, but no other concerns HPI: 08/27/2021: Here for week for follow-up of weekly carboplatin paclitaxel. Fatigue mildly increased with decreased appetite and minimal dysphagia but does not need to take additional medicine other than Tylenol for this. Otherwise no cough, dyspnea, fever, chills and no significant peripheral neuropathy. He willfollow-up in 2 weeks for chemoradiation toxicity visit with our nurse practitioner. I will then see him in 4 weeks after completion of chemoradiationand will discuss whether he gets consolidation carboplatin paclitaxel after restaging scan or continue with maintenance immunotherapy alone. 08/12/2021: Started concurrent chemoradiation with weekly Carboplatin/Paclitaxelone week ago. Tolerating well without cough, dyspnea, chest pain, bowel or bladder symptoms, or neuropathy. Will continue to follow every 2 weeks while onchemoradiation--likely candidate for one year immunotherapy with Imfinzi if response. 07/17/2021: This is a 70 yo male accompanied by his for new diagnosis of right upper lobe mass, wrapping around right mainstem bronchus, with associated mediastinal adenopathy. He apparently had right upper lobe pneumonia in 2019, no imaging since that time. He is a former smoker, prior 40 year history, quit about 18 years ago. About 1-2 months ago he had persistent nonproductive cough without hemoptysis. Increased dyspnea, but his notes he has had chronic dyspnea over the past 4 years. Slow nonquantified weight loss, decreased appetite, hoarseness, and mild right chest discomfort. CT Chest imaging at [facility] on 06/23/2021 showed a large lobulated mass of the superior segment of the right upper lobe extending to the hilum. There appears to be invasion of themass into the right mainstem bronchus. The mass measures approximately 5.5 x 7.6x 6.0 cm. There is a low density lesion in the liver that appears to be a cyst. 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 He does not have other significant comorbidities, prior malignancy, or known family history. We discussed that involvement of the right mainstem bronchus and mediastinum is consistent with likely Stage III lung cancer, but he needs a PET/CT to exclude liver metastases. If no distant metastatic disease on PET/CT, we will coordinate chemoradiation with weekly carboplatin/paclitaxel. I ordered PET/CT, radiation oncology consultation and reviewed informed consent for Carboplatin/Paclitaxel. I will see him the same day as Radiation Oncology consult to review PET/CT. He did sign informed consent today to expedite concurrent chemoradiation if no distant metastatic disease. We will also contact pathology to add PDL1 status--if metastatic disease, he may be a candidate for immunotherapy +/- chemotherapy. Today we reviewed chemotherapy counseling for weekly Carboplatin and Paclitaxel. Goal of therapy is curative if stage III. Common toxicities were reviewed to include infusion reactions/allergic reactions, myelosuppression, fatigue, nausea, vomiting, constipation, diarrhea, mouth sores, and alopecia. Other toxicities may include pneumonitis, neurologic, hepatic and renal toxicities. Risk of secondary malignancy due to effects of chemotherapy on bone marrow. Thepatient signed informed consent and will follow-up as directed. - Summary of Therapies Summary of Therapies: 08/06/2021: Commenced concurrent chemoradiation with Carboplatin AUC 2 IV Day 1 and Paclitaxel 45mg/m2 IV Day 1 weekly x 6-7 weeks. May receive full dose Carboplatin AUC 6 and Paclitaxel 175-200mg/m2 IV x 2 doses then immunotherapy x 1 year ROS Details: All systems reviewed & no additional complaints except as documented Subjective/ROS - Narrative: CONSTITUTIONAL: Positive for fatigue, negative for fever or night sweats. HEAD AND NECK: Negative for changes in hearing and vision. Negative for mouth ulcers, nasal congestion and nasal drainage. PULMONARY: Positive for mild right chest pain, persistent cough, hoarseness, anddyspnea on exertion. CARDIOVASCULAR: Negative for claudication and irregular heartbeat/palpitations. No edema. GASTROINTESTINAL: Negative for abdominal pain, constipation, diarrhea, nausea, or vomiting. Positive for decreased appetite and dysphagia/mild odynophagia as per HPI. GENITOURINARY: Negative for dysuria and hematuria. + h/o nephrolithiasis. ENDOCRINE: Negative for cold intolerance and heat intolerance. CENTRAL NERVOUS SYSTEM: Negative for gait disturbance and headache. No history of stroke. PSYCHIATRIC: Negative for anxiety or depression. DERMATOLOGICAL: Negative for pruritus and rash. Negative for suspicious skin lesions. MUSCULOSKELETAL: Negative for back pain and bone/joint symptoms. HEMATOLOGICAL: Negative for bleeding and easy bruising. Negative for history of transfusion or thromboembolic disease ALLERGY: Negative for environmental allergies and food allergies. PMFSH - History Attestation statement: The following information was validated with the patient. Source: Old Records Reviewed - Medical History Medical History: Medical History (Last Reviewed 08/27/21 @ 08:47 by Natacha Hess MD) Cough Hyperlipidemia Hypertensive heart disease Kidney stone Lung mass Shortness of breath - Surgical History Surgical History: Surgical History (Last Reviewed 08/27/21 @ 08:47 by Natacha Hess MD) History of carpal tunnel release History of neck surgery - Family History Family History: Family History (Last Reviewed 08/27/21 @ 08:47 by Natacha Hess MD) Father Heart disease Mother Diabetes Hypertension Sister Cancer - Social History Smoking Status: Former smoker Substance Use Type: None Home Medications & Allergies Allergies No Known Drug Allergies Allergy (Unknown, Verified 08/27/21 08:38) none Home Medications simvastatin 40 mg tablet (Zocor) 40 mg PO DAILY 02/26/18 [History Confirmed 08/27/21] aspirin 81 mg chewable tablet 81 mg PO DAILY #0 tab 02/27/18 [Rx Confirmed 08/27/21] hydrochlorothiazide 25 mg tablet 25 mg PO DAILY 30 Days #30 tab 02/27/18 [Rx Confirmed 08/27/21] carvedilol 3.125 mg tablet 3.125 mg PO Q12H 07/17/21 [History Confirmed 08/27/21] losartan 25 mg tablet 25 mg PO DAILY 07/17/21 [History Confirmed 08/27/21] ondansetron HCl 8 mg tablet 8 mg PO Q8H PRN #30 tab 08/05/21 [Rx Confirmed 08/27/21] hyaluronic dldknx-tcqsbxbst-iudk vera extract topical gel (RadiaPlexRx) 1 applicTOPICAL TID 08/25/21 [History Confirmed 08/27/21] hydrocortisone 1 % topical cream 1 applic TOPICAL TID 08/25/21 [History Confirmed 08/27/21] ibuprofen-diphenhydramine citrate 200 mg-38 mg tablet (Advil PM) 2 cap PO QHS 08/27/21 [History Confirmed 08/27/21] sucralfate 100 mg/mL oral suspension 5 ml PO QID 30 Days #600 ml 08/27/21 [Rx] Objective - Height/Weight Height/Weight: Height 5 ft 10 in Weight 114.305 kg BSA for Today's Weight 2.40 - Vital Signs Vital Signs: 08/27/21 08:39 Temperature 98.0 F Pulse Rate [Left Brachial] 78 Respiratory Rate 20 Blood Pressure [Left Arm] 128/84 02 Sat by Pulse Oximetry 96 - Pain Right Chest Pain Intensity: 2 - Emotional Needs Assessment Emotional Needs Assessment: Emotional Needs Identified? No Physical Exam Narrative: CONSTITUTIONAL: The patient is in no acute distress. HEAD / FACE: Normocephalic. EYES: Pupils are equal and reactive to light. Conjunctivae and lids are benign in appearance. Ocular movement intact. EARS: Hearing grossly intact. NOSE / MOUTH / THROAT: Nose, mouth, tongue and oropharynx are benign in appearance. No signs of inflammation. NECK / THYROID: Neck is supple. Thyroid is symmetrical, without thyromegaly, masses or palpable nodules. LYMPHATIC: No palpable cervical, supraclavicular, axillary, or inguinal adenopathy. RESPIRATORY: Normal to inspection. Lungs--decreased breath sounds over right upper lobe with localized wheezing and rhonchi. Otherwise, clear to auscultation and percussion. Normal speech and respiratory effort. CARDIOVASCULAR: Regular rate and rhythm. No murmurs, gallops, or rubs. VASCULAR: Carotid, radial, femoral and pedal pulses present bilaterally. No bruits. ABDOMEN: Bowel sounds normoactive. Soft, nontender and non-distended. No hepatosplenomegaly. No masses. GENITOURINARY: No CVA tenderness. No suprapubic fullness or tenderness. No groinadenopathy. No evidence of hernias. INTEGUMENTARY: The skin is unremarkable. No rashes. No suspicious lesions BACK / SPINE: The back is nontender. MUSCULOSKELETAL: Normal musculature, no joint deformities or abnormalities, normal range of motion for all four extremities. EXTREMITIES: No edema, cyanosis or clubbing. No Nigel sign. NEUROLOGICAL: Alert and oriented. Cranial nerves intact. No gross motor or sensory deficits. Ambulates independently. PSYCHIATRIC: No anxiety or evidence of depression. - ECOG Performance Status ECOG Score: 1 Results - Labs Labs: Diagram of Most Recent CBC and CMP 08/26/21 09:27 08/26/21 09:27 Labs - Last 7 Days 08/26/21 09:27: PHA Creatinine Clear 89.96, Sodium 135 L, Potassium 3.8, Chloride 100, Carbon Dioxide 24.2, BUN 12, Creatinine 1.00, Est GFR ( Amer) > 60, Est GFR (Non-Af Amer) > 60, Glucose 112 H, Calcium 9.3, Total Bilirubin 0.7, AST 17, ALT 22, Alkaline Phosphatase 59, Total Protein 7.2, Albumin 3.2, Globulin 4.0, Albumin/Globulin Ratio 0.8 08/26/21 09:27: Corrected WBC 6.6, Uncorrected WBC Count 6.6, RBC 3.98, Hgb 11.4L, Hct 33.6 L, MCV 84.5, MCH 28.5, MCHC 33.8, RDW 15.3 H, Plt Count 510 H, MPV 7.2, Neut % (Auto) 77.7, Lymph % (Auto) 6.2, [place] % (Auto) 15.2, Eos % (Auto) 0.6, Baso % (Auto) 0.3, Neut # (Auto) 5.2, Lymph # (Auto) 0.4 L, [place] # (Auto) 1.0 H, Eos # (Auto) 0.0, Baso # (Auto) 0.0, Nucleated RBC % (auto) 0.0 - Impressions No new imaging for review Assessment and Plan - TNM Staging Staging: Stage IIIB right upper lobe (overlapping sites involving right mainstem bronchus). No distant metastatic disease on PET/CT for final staging. 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 This is consistent with likely Stage III lung cancer, but he needs a PET/CT to exclude liver metastases. No distant metastatic disease on PET/CT, therefore we coordinated chemoradiation with weekly carboplatin/paclitaxel. I ordered PET/CT, radiation oncology consultation and reviewed informed consent for Carboplatin/Paclitaxel. We contacted pathology toadd PDL1 status--results still pending. He commenced Carboplatin/Paclitaxel with radiation on 08/06/2021. No toxicities at 08/12/2021 toxicity visit other than mild increase in creatinine. Grade 1 odynophagia with decreased appetite at 08/27/2021 toxicity visit. Addedsucralfate slurry 1 g every 6 hours as needed for remainder of chemoradiation. Next f/u toxicity check with nurse practitioner in 2 weeks--continue weekly CBC and CMP. Patient and his express understanding and will followup as directed. All questions answered over this 25 min followup toxicity visit. (2) Radiation-induced esophagitis Mild odynophagia and decreased appetite treated with sucralfate 3 every 6 hours as noted above. (3) Encounter for chemotherapy management Informed consent signed for carboplatin/paclitaxel weekly. No distant metastatic disease on PET/CT for staging (bilateral mediastinal and subcarinal adenopathy noted). Concurrent chemoradiation commenced 08/06/2021--Carboplatin AUC 2 IV and Paclitaxel 45mg/m2 IV weekly x 6-7 weeks. Tolerating well. We will follow every 2 weeks on concurrent chemoradiation. - Chemo Plan Chemo Plan (Dose, Rate, Freq): Concurrent chemoradiation with Carboplatin AUC 2 IV Day 1 and Paclitaxel 45mg/m2IV Day 1 weekly x 6-7 weeks. May receive full dose Carboplatin AUC 6 and Paclitaxel 175-200mg/m2 IV x 2 doses then immunotherapy x 1 year Goal of Treatment: Curative - Time with Patient Time Spent with Patient (Follow Up Visit): 25 minutes - moderate complexity for chemotherapy toxicity visit and completing chemotherapy orders Coordination of Care & Counseling Time: Greater than 50% of time spent with patient was for coordination of care (as documented) and [id number] counseling of patient and/or family. Dictated By: Natacha Hess MD DD/ [id number] Signed By: <Electronically signed by MD Natacha Hess> 08/27/21 1610 [facility] Work Phone: [phone]) [phone] Progress note Author Natacha Hess [facility] August 12, 2021 10:11pm Note Date/Time August 12, 2021 3:48pm [facility] [place] [place] [facility] at [address] [address] Hem/Onc Follow Up Note - OP Signed Patient: Bert Yeung MR#: [id number] : 1950 Acct:[id number] Age/Sex: 70 / M Type: REG RCR Copies to: Howie Fulton MD~ Subjective Date/Time of Service: Date of Service: 08/12/2021 Time of Service: 15:47 Chief Complaint: on treatment visit-discussion over constipation on day of and day after chemo HPI: 08/12/2021: Started concurrent chemoradiation with weekly Carboplatin/Paclitaxelone week ago. Tolerating well without cough, dyspnea, chest pain, bowel or bladder symptoms, or neuropathy. Will continue to follow every 2 weeks while onchemoradiation--likely candidate for one year immunotherapy with Imfinzi if response. 07/17/2021: This is a 70 yo male accompanied by his for new diagnosis of right upper lobe mass, wrapping around right mainstem bronchus, with associated mediastinal adenopathy. He apparently had right upper lobe pneumonia in 2019, no imaging since that time. He is a former smoker, prior 40 year history, quit about 18 years ago. About 1-2 months ago he had persistent nonproductive cough without hemoptysis. Increased dyspnea, but his notes he has had chronic dyspnea over the past 4 years. Slow nonquantified weight loss, decreased appetite, hoarseness, and mild right chest discomfort. CT Chest imaging at [facility] on 06/23/2021 showed a large lobulated mass of the superior segment of the right upper lobe extending to the hilum. There appears to be invasion of themass into the right mainstem bronchus. The mass measures approximately 5.5 x 7.6x 6.0 cm. There is a low density lesion in the liver that appears to be a cyst. 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 He does not have other significant comorbidities, prior malignancy, or known family history. We discussed that involvement of the right mainstem bronchus and mediastinum is consistent with likely Stage III lung cancer, but he needs a PET/CT to exclude liver metastases. If no distant metastatic disease on PET/CT, we will coordinate chemoradiation with weekly carboplatin/paclitaxel. I ordered PET/CT, radiation oncology consultation and reviewed informed consent for Carboplatin/Paclitaxel. I will see him the same day as Radiation Oncology consult to review PET/CT. He did sign informed consent today to expedite concurrent chemoradiation if no distant metastatic disease. We will also contact pathology to add PDL1 status--if metastatic disease, he may be a candidate for immunotherapy +/- chemotherapy. Today we reviewed chemotherapy counseling for weekly Carboplatin and Paclitaxel. Goal of therapy is curative if stage III. Common toxicities were reviewed to include infusion reactions/allergic reactions, myelosuppression, fatigue, nausea, vomiting, constipation, diarrhea, mouth sores, and alopecia. Other toxicities may include pneumonitis, neurologic, hepatic and renal toxicities. Risk of secondary malignancy due to effects of chemotherapy on bone marrow. Thepatient signed informed consent and will follow-up as directed. - Summary of Therapies Summary of Therapies: 08/06/2021: Commenced concurrent chemoradiation with Carboplatin AUC 2 IV Day 1 and Paclitaxel 45mg/m2 IV Day 1 weekly x 6-7 weeks. May receive full dose Carboplatin AUC 6 and Paclitaxel 175-200mg/m2 IV x 2 doses then immunotherapy x 1 year ROS Details: All systems reviewed & no additional complaints except as documented Subjective/ROS - Narrative: CONSTITUTIONAL: Positive for fatigue, negative for fever or night sweats. HEAD AND NECK: Negative for changes in hearing and vision. Negative for mouth ulcers, nasal congestion and nasal drainage. PULMONARY: Positive for mild right chest pain, persistent cough, hoarseness, anddyspnea on exertion. CARDIOVASCULAR: Negative for claudication and irregular heartbeat/palpitations. No edema. GASTROINTESTINAL: Negative for abdominal pain, constipation, decreased appetite,diarrhea, nausea, or vomiting. GENITOURINARY: Negative for dysuria and hematuria. + h/o nephrolithiasis. ENDOCRINE: Negative for cold intolerance and heat intolerance. CENTRAL NERVOUS SYSTEM: Negative for gait disturbance and headache. No history of stroke. PSYCHIATRIC: Negative for anxiety or depression. DERMATOLOGICAL: Negative for pruritus and rash. Negative for suspicious skin lesions. MUSCULOSKELETAL: Negative for back pain and bone/joint symptoms. HEMATOLOGICAL: Negative for bleeding and easy bruising. Negative for history of transfusion or thromboembolic disease ALLERGY: Negative for environmental allergies and food allergies. PMF - History Attestation statement: The following information was validated with the patient. Source: Old Records Reviewed - Medical History Medical History: Medical History (Last Reviewed 08/12/21 @ 21:59 by Natacha Hess MD) Cough Hyperlipidemia Hypertensive heart disease Kidney stone Lung mass Shortness of breath - Surgical History Surgical History: Surgical History (Last Reviewed 08/12/21 @ 21:59 by Natacha Hess MD) History of carpal tunnel release History of neck surgery - Family History Family History: Family History (Last Reviewed 08/12/21 @ 21:59 by Natacha Hess MD) Father Heart disease Mother Diabetes Hypertension Sister Cancer - Social History Smoking Status: Former smoker Substance Use Type: None Home Medications & Allergies Allergies No Known Drug Allergies Allergy (Unknown, Verified 07/17/21 11:22) none Home Medications simvastatin 40 mg tablet (Zocor) 40 mg PO DAILY 02/26/18 [History Confirmed 07/17/21] aspirin 81 mg chewable tablet 81 mg PO DAILY #0 tab 02/27/18 [Rx Confirmed 07/17/21] hydrochlorothiazide 25 mg tablet 25 mg PO DAILY 30 Days #30 tab 02/27/18 [Rx Confirmed 07/17/21] carvedilol 3.125 mg tablet 3.125 mg PO Q12H 07/17/21 [History Confirmed 07/17/21] losartan 25 mg tablet 25 mg PO DAILY 07/17/21 [History Confirmed 07/17/21] ondansetron HCl 8 mg tablet 8 mg PO Q8H PRN #30 tab 08/05/21 [Rx] Objective - Height/Weight Height/Weight: Height 5 ft 10 in Weight 118.3 kg BSA for Today's Weight 2.42 - Vital Signs Vital Signs: Vital signs review, mild elevation of BP - Pain Right Chest Pain Intensity: 2 Physical Exam Narrative: CONSTITUTIONAL: The patient is in no acute distress. HEAD / FACE: Normocephalic. EYES: Pupils are equal and reactive to light. Conjunctivae and lids are benign in appearance. Ocular movement intact. EARS: Hearing grossly intact. NOSE / MOUTH / THROAT: Nose, mouth, tongue and oropharynx are benign in appearance. No signs of inflammation. NECK / THYROID: Neck is supple. Thyroid is symmetrical, without thyromegaly, masses or palpable nodules. LYMPHATIC: No palpable cervical, supraclavicular, axillary, or inguinal adenopathy. RESPIRATORY: Normal to inspection. Lungs--decreased breath sounds over right upper lobe with localized wheezing and rhonchi. Otherwise, clear to auscultation and percussion. Normal speech and respiratory effort. CARDIOVASCULAR: Regular rate and rhythm. No murmurs, gallops, or rubs. VASCULAR: Carotid, radial, femoral and pedal pulses present bilaterally. No bruits. ABDOMEN: Bowel sounds normoactive. Soft, nontender and non-distended. No hepatosplenomegaly. No masses. GENITOURINARY: No CVA tenderness. No suprapubic fullness or tenderness. No groin adenopathy. No evidence of hernias. INTEGUMENTARY: The skin is unremarkable. No rashes. No suspicious lesions BACK / SPINE: The back is nontender. MUSCULOSKELETAL: Normal musculature, no joint deformities or abnormalities, normal range of motion for all four extremities. EXTREMITIES: No edema, cyanosis or clubbing. No Nigel sign. NEUROLOGICAL: Alert and oriented. Cranial nerves intact. No gross motor or sensory deficits. Ambulates independently. PSYCHIATRIC: No anxiety or evidence of depression. - ECOG Performance Status ECOG Score: 1 Results - Labs Labs: CBC and CMP reviewed--mild increased creatinine to 1.58 (creat clearance 53) - Impressions PET/CT FUSION IMAGING CLINICAL INFORMATION: Lung mass COMPARISON : 06/23/21 TECHNIQUE: Noncontrasted CT scan from the base of the skull to the upper thigh followed by PET imaging. Multiplanar PET/CT fusion images. The blood sugar is 108mg/dL. The F-18 FDG amount is 11.95mCi. FINDINGS: No mass or adenopathy in the neck identified. No bony lesion seen in the neck. No abnormal neck hypermetabolic uptake identified. Large RIGHT upper lobe perihilar mass extending to the pleural surface identified. This has a peripheral hypermetabolism. There are hypermetabolic RIGHT paratracheal lymph nodes. There is hypermetabolic subcarinal lymph node. Mildly hypermetabolic LEFT hilar lymph nodes. Hypermetabolic AP window lymph node identified. Few nonenlarged mediastinal lymph nodes identified. No hilar lesion is seen. No abnormal chest wall hypermetabolic uptake identified. There is region of increased accumulation identified in the mid to lower pole of the LEFT kidney. This may represent prominent calyx. Underlying lesion not entirely excluded. Normal physiologic uptake of the bowel noted. No abnormal hypermetabolic uptake seen. No abdominal mass or adenopathy identified. No soft tissue wall mass or fluid collection identified. No bony lesion seen. No abnormal hypermetabolic bone lesion seen. No abnormal hypermetabolic soft tissue uptake seen. PET/PET tumor init tx strat sb-mt IMPRESSION: Large RIGHT upper lobe perihilar mass with peripheral hypermetabolism which extends the pleural surface. Hypermetabolic lower RIGHT paratracheal lymph nodes. Hypermetabolic subcarinal lymph node. Mildly hypermetabolic LEFT hilar lymph nodes. Hypermetabolic AP window lymph node. Focal region of increased accumulation in the mid to lower pole LEFT kidney. This may be outside sales representative of prominent calyx. Underlying lesion not entirely excluded. Further assessment with contrasted CT of the abdomen and pelvis recommended. Impression dictated by: Joesph Cleary M.D.07/22/2021 3:14 PM Assessment and Plan - TNM Staging Staging: Stage IIIB right upper lobe (overlapping sites involving right mainstem bronchus). No distant metastatic disease on PET/CT for final staging. (1) Malignant neoplasm of upper lobe, right bronchus or lung 70 year old male with 1-2 month history of refractory cough, found to have moderately differentiated squamous cell carcinoma of the right mainstem bronchus and mediastinum. This is consistent with likely Stage III lung cancer, but he needs a PET/CT to exclude liver metastases. No distant metastatic disease on PET/CT, therefore we coordinated chemoradiation with weekly carboplatin/paclitaxel. I ordered PET/CT, radiation oncology consultation and reviewed informed consent for Carboplatin/Paclitaxel. We contacted pathology to add PDL1 status--results still pending. He commenced Carboplatin/Paclitaxel with radiation on 08/06/2021. No toxicities at 08/12/2021 toxicity visit other than mild increase in creatinine. Next f/u toxicity check in 2 weeks--continue weekly CBC and CMP. Patient and his express understanding and will followup as directed. All questions answered over this 25 min followup toxicity visit. (2) Encounter for chemotherapy management Informed consent signed for carboplatin/paclitaxel weekly. No distant metastatic disease on PET/CT for staging (bilateral mediastinal and subcarinal adenopathy noted). Concurrent chemoradiation commenced 08/06/2021--Carboplatin AUC 2 IV and Paclitaxel 45mg/m2 IV weekly x 6-7 weeks. Tolerating well. I will follow every 2 weeks on concurrent chemoradiation. - Chemo Plan Chemo Plan (Dose, Rate, Freq): If no distant metastatic disease, will give concurrent chemoradiation with Carboplatin AUC 2 IV Day 1 and Paclitaxel 45mg/m2 IV Day 1 weekly x 6-7 weeks. May receive full dose Carboplatin AUC 6 and Paclitaxel 175-200mg/m2 IV x 2 doses then immunotherapy x 1 year - Time with Patient Time Spent with Patient (Follow Up Visit): 25 minutes - moderate complexity for chemotherapy toxicity visit and modifying chemotherapy orders Coordination of Care & Counseling Time: Greater than 50% of time spent with patient was for coordination of care (as documented) and [id number] counseling of patient and/or family. Dictated By: Natacha Hess MD DD/ [id number] Signed By: <Electronically signed by MD Natacha Hess> 08/12/21 2214 [facility] Work Phone: [phone]) 671-789109-10-2021 Consult note Author Samantha Lo [facility] July 24, 2021 12:25pm Note Date/Time July 23, 2021 2:15pm [facility] [place] [address] Rad Onc Consult Note - OP Signed Patient: Bert Yeung MR#: [id number] : 1950 Acct:[id number] Age/Sex: 70 / M Type: REG RCR Copies to: MD Howie Garner MD Shoshana Eisenstein, BOAT LABORER-C~ HPI - Service Date/Time Date: 07/23/21 Time: 14:14 Diagnosis: Moderately differentiated squamous cell carcinoma of the right upper lobe of thelung, clinical stage T3 N3 M0, stage IIIc Chief Complaint: I am here for my lung cancer treatments HPI: 70-year-old gentleman with an ex-smoker for 18 years with history of smoking 40 pack years had complaints of persistent nonproductive cough without any hemoptysis and increasing dyspnea. His states that he has dyspnea for last 4 years but it had gotten worse recently. He has no complaints of weight loss, decreased appetite, hoarseness but he did have mild right sided chest wallpain. Patient went to [facility] ER on 06/23/2021 and had a chest CT scan which showed a large lobulated mass in the superior segment of the right upper lobe extending to the right hilum and measuring 5.5 x 7.6 x 6 cm in size. There is also appearance of invasion of the mass to the right mainstem bronchus and there was a low-density lesion in the liver which appeared to be cyst. Patient was referred to Dr. Ann and he underwent bronchoscopy on 07/03/2021 which showed invasion of the right mainstem bronchus and the biopsy confirmed moderately differentiated squamous cell carcinoma. His PET CT scan showed findings of arge RIGHT upper lobe perihilar mass with peripheral hypermetabolismwhich extends the pleural surface. There were also hypermetabolic lower RIGHT paratracheal lymph nodes, hypermetabolic subcarinal lymph node, mildly hypermetabolic LEFT hilar lymph nodes and hypermetabolic AP window lymph node. Focal region of increased accumulation in the mid to lower pole LEFT kidney which may be outside sales representative of prominent calyx. The patient is clinically inoperable and Dr. Hess has seen the patient already in medical oncology consultation and she has asked to see this patient for consideration of combinedchemo/radiotherapy treatments. [facility] - Medical History Medical History: Medical History (Last Reviewed 07/23/21 @ 15:19 by Samantha Lo MD) Cough Hyperlipidemia Hypertensive heart disease Kidney stone Lung mass Shortness of breath - Surgical History Surgical History: Surgical History (Last Reviewed 07/23/21 @ 15:19 by Samantha Lo MD) History of carpal tunnel release History of neck surgery - Family History Family History: Family History (Last Reviewed 07/23/21 @ 15:19 by Samantha Lo MD) Father Heart disease Mother Diabetes Hypertension Sister Cancer - Social History Smoking Status: Former smoker Substance Use Type: None Home Medications & Allergies Allergies No Known Drug Allergies Allergy (Unknown, Verified 07/17/21 11:22) none Home Medications simvastatin 40 mg tablet (Zocor) 40 mg PO DAILY 02/26/18 [History Confirmed 07/17/21] aspirin 81 mg chewable tablet 81 mg PO DAILY #0 tab 02/27/18 [Rx Confirmed 07/17/21] hydrochlorothiazide 25 mg tablet 25 mg PO DAILY 30 Days #30 tab 02/27/18 [Rx Confirmed 07/17/21] carvedilol 3.125 mg tablet 3.125 mg PO Q12H 07/17/21 [History Confirmed 07/17/21] losartan 25 mg tablet 25 mg PO DAILY 07/17/21 [History Confirmed 07/17/21] Subjective ROS: I reviewed the 12-point Review of Systems with the patient as per our standard questionnaire. Objective Height 5 ft 10 in Weight 120.656 kg Temp 98.8 F 07/23/21 13:33 Pulse 64 07/23/21 13:33 Resp 18 07/23/21 13:33 BP 146/81 H 07/23/21 13:33 Pulse Ox 99 07/23/21 13:33 Pain: 0/10 Emotional Needs Assessment: Emotional Needs Identified? No Karnofsky Performance Scale: 90%: Can perform normal activity, minor signs of disease Physical Exam: On physical examination today, he is an alert, oriented, pleasant gentleman who does not appear to be in any acute distress. HEENT examination revealed no cranial neuropathy. No palpable cervical or supraclavicular adenopathy. His breath sounds are decreased in the right upper lobe area as expected but otherwise, on auscultation, there is no abnormality noted in the left lung. Cardiac examination is unremarkable. His abdomen is soft and nontender and there is no palpable mass or organomegaly. Rectal examination was not done today. He has no leg edema. He remains neurologically stable including his motor, sensory and cerebellar functions. Results CBC & Chem 7: 07/23/21 14:28 07/23/21 14:28 Impression: Moderately differentiated squamous cell carcinoma of the right upper lobe of thelung, clinical stage T3 N3 M0, stage IIIc Assessment & Plan (1) Malignant neoplasm of upper lobe, right bronchus or lung Plan: This 70-year-old gentleman with recent diagnosis of locally advanced moderately differentiated squamous cell carcinoma of the right upper lobe of thelung, clinical stage T3 N3 M0, stage IIIc (PDL-1 status not available yet) was seen today in radiation oncology consultation and he is not a surgical candidatedue to N3 disease. I concur with Dr. Hess's recommendation of combined and concurrent chemo and radiation therapy treatments to the right upper lobe mass and mediastinum. Pros and cons of radiation therapy were discussed with him in detail and an informed consent was signed today. He will undergo his CT simulation next week with plans to initiate his 6-weeks course of chemoradiotherapy treatment soon thereafter and we shall co-ordinate his chemotherapy treatments with Dr. Hess. Total Time Spent with Patient: Greater than 30 minutes I spent 45 minutes [id number] time with this patient and more than 50% of timeallotted to patient education, answering questions, and coordinating care. N.B: Voice-recognition software was used in the creation of this note. Efforts were made to detect and correct typographical and/or grammatical errors;please excuse them should you find any. Dictated By: Samantha Lo MD DD/ [id number] Signed By: <Electronically signed by Samantha Lo MD> 07/24/21 1225 [facility] Work Phone: [phone]) 786-769409-04-2021 Consult note Author Natacha Hess [facility] July 18, 2021 8:38pm Note Date/Time July 17, 2021 11:34am [facility] [place] [place] [facility] [place] [id number] Hem/Onc Consult Note - OP Signed Patient: Bert Yeung MR#: [id number] : 1950 Acct:[id number] Age/Sex: 70 / M Type: REG RCR Copies to: MD Tiffany Villareal, BOAT LAB[employer]ER-C~ HPI Date/Time of Service: Date of Service: 07/17/2021 Time of Service: 11:33 Referring Provider/PCP: Referring Provider: Alicia Ann MD PCP: Howie Smith DO - History of Present Illness Reason for Consultation: Patient referred to Dr. Ann for large right upper lobe mass involving right mainstem bronchus with mediastinal adenopathy. Bronchoscopy 07/03/2021 showed moderately differentiated squamous cell carcinoma. Here for discussion of therapy options. Chief Complaint: Patient is here today for a referral from Dr. Ann for lung mass HPI: Dear Dr. Ann, I had the great pleasure of seeing your patient in consultation. Thank you verymuch for your referral. This is a 70 yo male accompanied by his for new diagnosis of right upper lobe mass, wrapping around right mainstem bronchus, with associated mediastinal adenopathy. He apparently had right upper lobe pneumonia in 2019, no imaging since that time. He is a former smoker, prior 40 year history, quit about 18 years ago. About 1-2 months ago he had persistent nonproductive cough without hemoptysis. Increased dyspnea, but his notes he has had chronic dyspnea over the past 4 years. Slow nonquantified weight loss, decreased appetite, hoarseness, and mild right chest discomfort. CT Chest imaging at [facility] on 06/23/2021 showed a large lobulated mass of the superior segment of the right upper lobe extending to the hilum. There appears to be invasion of the mass into the right mainstem bronchus. The mass measures approximately 5.5 x 7.6 x 6.0 cm. There is a low density lesion in the liver that appears to be a cyst. 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 He does not have other significant comorbidities, prior malignancy, or known family history. We discussed that involvement of the right mainstem bronchus and mediastinum is consistent with likely Stage III lung cancer, but he needs a PET/CT to exclude liver metastases. If no distant metastatic disease on PET/CT, we will coordinate chemoradiation with weekly carboplatin/paclitaxel. I ordered PET/CT, radiation oncology consultation and reviewed informed consent for Carboplatin/Paclitaxel. I will see him the same day as Radiation Oncology consult to review PET/CT. He did sign informed consent today to expedite concurrent chemoradiation if no distant metastatic disease. We will also contact pathology to add PDL1 status--if metastatic disease, he may be a candidate for immunotherapy +/- chemotherapy. Today we reviewed chemotherapy counseling for weekly Carboplatin and Paclitaxel. Goal of therapy is curative if stage III. Common toxicities were reviewed to include infusion reactions/allergic reactions, myelosuppression, fatigue, nausea, vomiting, constipation, diarrhea, mouth sores, and alopecia. Other toxicities may include pneumonitis, neurologic, hepatic and renal toxicities. Risk of secondary malignancy due to effects of chemotherapy on bone marrow. Thepatient signed informed consent and will follow-up as directed. [facility] - History Attestation statement: The following information was validated with the patient. Source: Old Records Reviewed - Medical History Medical History: Medical History (Last Reviewed 07/17/21 @ 11:34 by Natacha Hess MD) Cough Hyperlipidemia Hypertensive heart disease Kidney stone Lung mass Shortness of breath - Surgical History Surgical History: Surgical History (Last Reviewed 07/17/21 @ 11:34 by Natacha Hess MD) History of carpal tunnel release History of neck surgery - Family History Family History: Family History (Last Reviewed 07/17/21 @ 11:34 by Natacha Hess MD) Father Heart disease Mother Diabetes Hypertension Sister Cancer - Social History Smoking Status: Former smoker Substance Use Type: None Home Medications & Allergies Allergies No Known Drug Allergies Allergy (Unknown, Verified 07/17/21 11:22) none Home Medications simvastatin 40 mg tablet (Zocor) 40 mg PO DAILY 02/26/18 [History Confirmed 07/17/21] aspirin 81 mg chewable tablet 81 mg PO DAILY #0 tab 02/27/18 [Rx Confirmed 07/17/21] hydrochlorothiazide 25 mg tablet 25 mg PO DAILY 30 Days #30 tab 02/27/18 [Rx Confirmed 07/17/21] carvedilol 3.125 mg tablet 3.125 mg PO Q12H 07/17/21 [History Confirmed 07/17/21] losartan 25 mg tablet 25 mg PO DAILY 07/17/21 [History Confirmed 07/17/21] Subjective Data - Diagnosis DIAGNOSIS: 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 (Pending PET/CT for staging). Subjective/ROS - Narrative: CONSTITUTIONAL: Positive for fatigue, negative for fever or night sweats. HEAD AND NECK: Negative for changes in hearing and vision. Negative for mouth ulcers, nasal congestion and nasal drainage. PULMONARY: Positive for mild right chest pain, persistent cough, hoarseness, anddyspnea on exertion. CARDIOVASCULAR: Negative for claudication and irregular heartbeat/palpitations. No edema. GASTROINTESTINAL: Negative for abdominal pain, constipation, decreased appetite,diarrhea, nausea, or vomiting. GENITOURINARY: Negative for dysuria and hematuria. + h/o nephrolithiasis. ENDOCRINE: Negative for cold intolerance and heat intolerance. CENTRAL NERVOUS SYSTEM: Negative for gait disturbance and headache. No history of stroke. PSYCHIATRIC: Negative for anxiety or depression. DERMATOLOGICAL: Negative for pruritus and rash. Negative for suspicious skin lesions. MUSCULOSKELETAL: Negative for back pain and bone/joint symptoms. HEMATOLOGICAL: Negative for bleeding and easy bruising. Negative for history of transfusion or thromboembolic disease ALLERGY: Negative for environmental allergies and food allergies. ROS Details: All systems reviewed & no additional complaints except as documented Objective - Height/Weight Height/Weight: Height 5 ft 10 in Weight 119.748 kg - Vital Signs Vital Signs: 07/17/21 11:28 Pulse Rate [Left Brachial] 66 Respiratory Rate 20 Blood Pressure [Left Arm] 151/81 H 02 Sat by Pulse Oximetry 97 - Emotional Needs Assessment Emotional Needs Assessment: Emotional Needs Identified? No Physical Exam Narrative: CONSTITUTIONAL: The patient is in no acute distress. HEAD / FACE: Normocephalic. EYES: Pupils are equal and reactive to light. Conjunctivae and lids are benign in appearance. Ocular movement intact. EARS: Hearing grossly intact. NOSE / MOUTH / THROAT: Nose, mouth, tongue and oropharynx are benign in appearance. No signs of inflammation. NECK / THYROID: Neck is supple. Thyroid is symmetrical, without thyromegaly, masses or palpable nodules. LYMPHATIC: No palpable cervical, supraclavicular, axillary, or inguinal adenopathy. RESPIRATORY: Normal to inspection. Lungs--decreased breath sounds over right upper lobe with localized wheezing and rhonchi. Otherwise, clear to auscultation and percussion. Normal speech and respiratory effort. CARDIOVASCULAR: Regular rate and rhythm. No murmurs, gallops, or rubs. VASCULAR: Carotid, radial, femoral and pedal pulses present bilaterally. No bruits. ABDOMEN: Bowel sounds normoactive. Soft, nontender and non-distended. No hepatosplenomegaly. No masses. GENITOURINARY: No CVA tenderness. No suprapubic fullness or tenderness. No groinadenopathy. No evidence of hernias. INTEGUMENTARY: The skin is unremarkable. No rashes. No suspicious lesions BACK / SPINE: The back is nontender. MUSCULOSKELETAL: Normal musculature, no joint deformities or abnormalities, normal range of motion for all four extremities. EXTREMITIES: No edema, cyanosis or clubbing. No Nigel sign. NEUROLOGICAL: Alert and oriented. Cranial nerves intact. No gross motor or sensory deficits. Ambulates independently. PSYCHIATRIC: No anxiety or evidence of depression. - ECOG Performance Status ECOG Score: 1 Results - Labs Labs: No recent labs for review. - Impressions Reason For Exam MID RIGHT LUNG MASS; DYSPNEA, UNSPECIFIED; COUGH REPORT EXAMINATION: CT Chest W/Contrast HISTORY: MID RIGHT LUNG MASS; DYSPNEA, UNSPECIFIED; COUGH. COMPARISON: Chest study dated 06/18/2021. TECHNIQUE: CT examination of the chest following the administration of intravenous contrast. Coronal and sagittal reformations were performed. Dose reduction techniques were achieved by using automated exposure control and/or adjustment of mA and/or kV according to patient size and/or use of iterative reconstruction technique. FINDINGS: No obvious pulmonary emboli. Mild atherosclerotic calcification within the thoracic aortic arch. No evidence of thoracic aortic aneurysm, dissection, or leak. Calcified subcarinal lymph nodes in the mediastinum as well as calcified left hilar lymph node likely related to granulomatous changes. Moderately enlarged right paratracheal lymph node measuring 2.5 cm in diameter. Other mildly enlarged mediastinal lymph nodes. There is a mild to moderately enlarged right infrahilar lymph node measuring 1.8 cm in diameter on series 2 axial image 59. Shot-sized axillary lymph nodes without anny adenopathy. Large solid mass with lobulated margins seen in the likely superior segment of the right upper lobe extending to the hilum. On series 2 axial images 48 through 54 and series 601 coronal images 99 through 105 there appears to be invasion of the mass into the right mainstem bronchus. The invading portion of the mass measures approximately 1.5 x 0.8 cm as estimated on the coronal reconstructed image series 601 image 103. The mass itself measures approximately 5.5 x 7.6 x 6.0 cm in longitudinal, transverse, and AP dimensions. Mild COPD. Areas of mild reticular prominence in the right upper lobe superior and anterior to the above-described mass could be neoplastic in nature or represent areas of atelectatic, fibrotic, and/or minimal infiltrative changes. Areas of minimal reticular prominence in the lower lung joiner compatible with atelectatic and/or fibrotic changes. There is mild pleural thickening anterior and medial to the mass and possibly along the lateral aspect of the mass which is nonspecific, possibly neoplastic. No evidence of pleural effusion. Chest wall is grossly intact. There is a focal area of decreased attenuation within the right lobe of the liver on series 2 axial image 124 measuring approximately 1.5 x 1.0 x 0.8 cm most likely representing a cyst. There is contracted appearance of the gallbladder with a small gallstone. At the expected location of the gallbladder neck there is a more round fluid-like density measuring 2 cm in diameter, this is of uncertain etiology and significance. Postoperative stabilizing opacities at the visualized cervical level. Mild to moderate degenerative changes in the dorsal spine. Mild to moderate degenerative changes in the visualized shoulders. IMPRESSION: CT chest study demonstrates a large mass in what appears be the anterior segment of the right upper lobe extending to the hilum with apparent associated invasion of the right mainstem bronchus. The mass is assumed neoplastic. Reticular densities adjacent to the mass superiorly and anteriorly compatible with atelectatic, fibrotic, and/or infiltrative changes as well as neoplastic changes. Adenopathy as described, assumed malignant. Mild COPD. Likely a small cyst in the liver. Contracted gallbladder with a gallstone. Round fluid-containing density at the level of the expected location of the gallbladder neck of uncertain etiology and significance. Signature Line Final Dictated by: Avni Vicente MD Dictated DT/TM: 06/23/21 3:22 - Other Results Results/Comments: PROCEDURE(S) PERFORMED: Endobronchial Biopsy and Washing CONSENT: Obtained prior to the procedure after explaining indications risks and benefits PRE-OP: Right upper lobe mass SEDATION: propofol PROCEDURE: Fiberoptic bronchoscope was passed through the left nares, after topical anesthetic bronchoscope was passed between the vocal cords which appeared normalwith normal movements, trachea was inspected next and appeared unremarkable withno endotracheal lesions, moderate secretions were seen and removed with suctioning. At the distal trachea level large whitish necrotic appearing mass was protrudingout of the right upper lobe and markedly narrowing the right main bronchus leading into the bronchus intermedius. I was able to pass the bronchoscope intothe bronchus intermedius and right middle lobe and right lower lobe bronchi werepatent and free of any endobronchial lesions. The entire endobronchial visible mass was whitish and necrotic. Behind that there was some pinkish tissue that was bleeding easily with biopsies and manipulation. I passed a biopsy forceps behind the necrotic tissue into the right upper lobe opening and obtain multipleviable appearing tissue pinkish in color. Left lung was inspected next and appeared with no significant endobronchial lesions. Generalized bronchitis with erythematous and edematous mucosal surfaces was noted otherwise. Moderate amount of whitish secretions were also removed bilaterally. Bronchoscope been was withdrawn into the trachea and out of the patient with no difficulty Postop diagnosis: Endobronchial mass whitish necrotic appearing, and occluding the right upper lobe, with narrowing of the right main bronchus. Status post washing and biopsies EBL Minimal COMPLICATIONS: None Documented By: Alicia Ann MD 07/03/21 0975 Assessment and Plan - TNM Staging Staging: Advanced unresectable right upper lobe (overlapping sites involving right mainstem bronchus). Pending PET/CT for final staging. 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 This is consistent with likely Stage III lung cancer, but he needs a PET/CT to exclude liver metastases. If no distant metastatic disease onPET/CT, we will coordinate chemoradiation with weekly carboplatin/paclitaxel. Iordered PET/CT, radiation oncology consultation and reviewed informed consent for Carboplatin/Paclitaxel. I will see him the same day as Radiation Oncology consult to review PET/CT. He did sign informed consent today to expedite concurrent chemoradiation if no distant metastatic disease. We will also contact pathology to add PDL1 status--if metastatic disease, he may be a candidate for immunotherapy +/- chemotherapy. Patient and his express understanding and will followup as directed. All questions answered over this 60 min visit for record review, exam, and chemotherapy consent. I would like to thank you very much for the courtesy of this referral. I will keep you up-to-date with this patient's progress. Should you have any questionsregarding the management of this patient, please do not hesitate to contact me. Sincerely, Natacha Hess MD, FACP Medical Oncology (2) Encounter for chemotherapy management Informed consent signed for carboplatin/paclitaxel weekly. Will not commence orders unless absence of distant metastatic disease on PET/CT for staging. Radiation oncology referral next week to expedite therapy given involvement of right mainstem bronchus (no current hemoptysis). May need more urgent radiationif he develops hemoptysis or respiratory decompensation. Baseline labs ordered with staging PET/CT. - Chemo Plan Chemo Plan (Dose, Rate, Freq): If no distant metastatic disease, will give concurrent chemoradiation with Carboplatin AUC 2 IV Day 1 and Paclitaxel 45mg/m2 IV Day 1 weekly x 6-7 weeks. May receive full dose Carboplatin AUC 6 and Paclitaxel 175-200mg/m2 IV x 2 dosesthen immunotherapy x 1 year - Time with Patient Total Time Spent with Patient (Consult): 60 mins or more Coordination of Care & Counseling Time: Greater than 50% of time spent with patient was for coordination of care (as documented) and [id number] counseling of patient and/or family. Dictated By: Natacha Hess MD DD/ [id number] Signed By: <Electronically signed by MD Natacha Hess> 07/18/212037 [facility] Work Phone: 1(451) 591-857808-11-2021 Note [id number]#[address] [place], [place] [id number] NoteOPERATIVE NOTE OPERATION DATE: 04-22-21 ANESTHETIC:MAC, propofol per the anesthesia department. PREOPERATIVE DIAGNOSIS:Colorectal cancer screening. POSTOPERATIVE DIAGNOSIS:Small sessile polyp at the transverse colon, removed with cold biopsy and retrieved. PROCEDURE NAME:Colonoscopy with cold biopsy polypectomy. INDICATIONS: O2 oximetry. Hemodynamic monitoring performed, pre, during and post procedure. The patient was identified, H AND P completed. The patient was given full explanation of the procedure as well as associated risks and written consent was obtained prior to the procedure. The patient expressed complete understanding of the procedure as well as alternatives to the procedure and anesthesia and agreed to proceed with the procedure as indicated. The patient was immediately reassessed prior to IV sedation. PROCEDURE: Following IV sedation, the patient was placed in the left lateral decubitus position. A digital rectal exam was performed which did not demonstrate any masses. The videocolonoscope was subsequently inserted and passed proximally. The colonoscope was advanced over to the right side, the ileocecal valve, cecal floor and appendiceal orifice were identified. The colonoscope was then slowly withdrawn through the ascending colon, hepatic flexure, and into the transverse colon. In the transverse colon there was noted to be a small sessile polyp, this was removed with cold biopsy and retrieved. The colonoscope was withdrawn through the splenic flexure, descending colon and into the sigmoid colon. The colonoscope was withdrawn into the rectum, retroflexion was performed which demonstrated no significant hemorrhoids. The colonoscope was then straightened and removed. Following a period of recovery, the patient was seen, given full explanation of the procedure. The patient tolerated the procedure well and may be discharged when in satisfactory, stable and ambulatory condition. RECOMMENDATIONS: 1. Await Pathology results. 2. Colonoscopy will likely be recommended in 5 years. 3. 4. 5. [facility] Signed and Approved by: KATHERINE SIMEON JR 6. 04/23/2021 12:43:00 1. 7.[facility]11-18-2020 NotePROCEDURE: XR ANKLE RT MIN 3 VIEWS, XR FOOT RT MIN 3 VIEWS HISTORY: Pain of right ankle joint ; chronic ankle instability, first metatarsal pain COMPARISON: None. FINDINGS: BONES:Old, healed fractures of the distal tibia and fibula with minimal offset and angulation. Mild narrowing of the medial aspect of the tibiotalar joint. Bone hypertrophy the head of the first metatarsal. Separate, corticated ossification medial to the head of the first metatarsal; remote fracture fragment versus heterotopic bone formation. Mild degenerative changes of the first metatarsophalangeal joint. Moderate size degenerative calcaneal enthesophytes. SOFT TISSUES:No visible soft tissue swelling. EFFUSION:None visible. OTHER: Negative. IMPRESSION: 1. Old, healed fractures of the distal tibia and fibula. 2. Mild-moderate narrowing of the medial tibiotalar joint space. 3. Bunion formation versus sequela of remote trauma involving the head of the first metatarsal. No comparison studies. Electronically authenticated by: EDIN HUNTER Date: 2020-10-01 10:[facility]11-18-2020 NotePROCEDURE: XR ANKLE RT MIN 3 VIEWS, XR FOOT RT MIN 3 VIEWS HISTORY: Pain of right ankle joint ; chronic ankle instability, first metatarsal pain COMPARISON: None. FINDINGS: BONES:Old, healed fractures of the distal tibia and fibula with minimal offset and angulation. Mild narrowing of the medial aspect of the tibiotalar joint. Bone hypertrophy the head of the first metatarsal. Separate, corticated ossification medial to the head of the first metatarsal; remote fracture fragment versus heterotopic bone formation. Mild degenerative changes of the first metatarsophalangeal joint. Moderate size degenerative calcaneal enthesophytes. SOFT TISSUES:No visible soft tissue swelling. EFFUSION:None visible. OTHER: Negative. IMPRESSION: 1. Old, healed fractures of the distal tibia and fibula. 2. Mild-moderate narrowing of the medial tibiotalar joint space. 3. Bunion formation versus sequela of remote trauma involving the head of the first metatarsal. No comparison studies. Electronically authenticated by: EDIN HUNTER Date: 2020-10-01 10:25ThBl[facility]* Diagnosis Onset Date Resolution Status Chest pain acute Drug-induced pneumonitis chr onic Encounter for antineoplastic immunotherapy chronic Encounter for chemotherapy management chronic Malignant neoplasm of overla pping sites of right bronchus and lung chronic Malignant neoplasm of upper lobe, right bronchus or lung chronic Right-sided chest wall pain chronic Epistaxis resolved Radiation-induced esophagitis resolved [facility] Work Phone: Evaluation note* Diagnosis Onset Date Resolution Status Chest pain acute Encounter for coordination of complex care acute Drug-induced pneumonitis chr onic Encounter for antineoplastic immunotherapy chronic Encounter for chemotherapy management chronic Malignant neoplasm of overla pping sites of right bronchus and lung chronic Malignant neoplasm of upper lobe, right bronchus or lung chronic Right-sided chest wall pain chronic Epistaxis resolved Radiation-induced esophagitis resolved [facility] Work Phone: Evaluation noteNo assessment information available [facility] Work Phone: Evaluation note* Diagnosis Onset Date Resolution Status Chest pain acute Hypokalemia acute Drug-induced pneumonitis chr onic Encounter for antineoplastic immunotherapy chronic Encounter for chemotherapy management chronic Encounter for coordination of complex care chronic Malignant neoplasm of overla pping sites of right bronchus and lung chronic Malignant neoplasm of upper lobe, right bronchus or lung chronic Right-sided chest wall pain chronic 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 Epistaxis resolved Radiation-induced esophagitis resolved Drug-induced pneumonitis chr onic Encounter for coordination of complex care chronic Malignant neoplasm of overla pping sites of right bronchus and lung chronic 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 [facility] Work Phone: Evaluation note* Diagnosis Onset Date Resolution Status History of tobacco abuse acu te Pulmonary fibrosis acute [facility] Work Phone: Evaluation note* Diagnosis Onset Date Resolution Status Drug-induced pneumonitis chr onic Malignant neoplasm of overla pping sites of right bronchus and lung chronic 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 Drug-induced pneumonitis chr onic Malignant neoplasm of overla pping sites of right bronchus and lung chronic Malignant neoplasm of upper lobe, right bronchus or lung chronic 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 Epistaxis resolved Hypokalemia resolved Radiation-induced esophagitis resolved [facility] Work Phone: Evaluation note* Diagnosis Poor venous access- Primary Venous insufficiency Unspecified venous (peripheral) insufficiency Malignant neoplasm of overlapping sites of right lung (CMS/HCC) [facility] Diagnosis Poor venous access- Primary Malignant neoplasm of overlapping sites of right lung (CMS/HCC) [facility] Diagnosis Throat pain- Primary LPRD (laryngopharyngeal reflux disease) Acute laryngitis, without mention of obstruction Recurrent epistaxis Hoarse Dysphonia documented in [facility] encounter [facility]* Diagnosis Lesion of vocal cord- Primary Other diseases of vocal cords documented in this encounter [facility]* Diagnosis Ulcerative laryngitis- Primary Acute laryngitis, without mention of obstruction Chronic fungal laryngitis Pre-operative clearance Unspecified pre-operative examination Presbylarynges Dysphonia Voice hoarseness Dysphonia Muscle tension dysphonia Other diseases of larynx Does not use respiratory support for voice Malignant neoplasm of right lung, unspecified part of lung (Multi) documented in this encounter [facility] Work Phone: Evaluation note* Diagnosis Ulcerative laryngitis Acute laryngitis, without mention of obstruction Leukoplakia of larynx Ulcerative laryngitis Acute laryngitis, without mention of obstruction Leukoplakia of larynx HTN (hypertension) Unspecified essential hypertension Hyperlipidemia Other and unspecified hyperlipidemia Gastroesophageal reflux disease Esophageal reflux Obesity Obesity, unspecified documented in this encounter [facility] Work Phone: Evaluation note* Diagnosis Voice fatigue- Primary Other voice and resonance disorders Ulcerative laryngitis Acute laryngitis, without mention of obstruction Dysphonia Muscle tension dysphonia Other diseases of larynx Voice hoarseness Dysphonia Other voice and resonance disorders documented in this encounter [facility] Work Phone: History general Narrative - Reported* Type Description Date Medical History hypertensive heart disease Medical History hyperlipidemia Medical History lung cancer Surgical History Neck Surgery Surgical History kidney stone Surgical History carpal tunnel release Hospitalization History pneumonia 02/2018 Hospitalization History bronchitis 2018 [facility] Other Hospital Discharge instructions Additional Instructions Take the antibiotic cephalexin 4 times a day for 7 days take until its all gone 1 hydrocodone every 6 hours for severe pain May apply ice warm moist heat where hurts Gentle stretching May use topical medicine such as IcyHot Bengay Follow-up with family doctor for recheck Return to the ER for worsening pain high fever vomiting or any other concerns [facility] Work Phone: Progress note Author Natacha Hess [facility] February 03, 2023 10:38am Note Date/Time February 03, 2023 8:[address] [facility] [place] [place] [facility] at [address] [address] Hem/Onc Follow Up Note - OP Signed Patient: Bert Yeung MR#: [id number] : 1950 Acct:[id number] Age/Sex: 72 / M Type: REG RCR Copies to: Howie Fulton MD~ Subjective Date/Time of Service: Date of Service: 02/03/2023 Time of Service: 08:32 Chief Complaint: Patient is here for a 3 month follow up with labs and scans forreview. Patient states that he has been sneezing more frequently. Patient voicesno other concerns at this time. HPI: 02/03/2023: 3-month follow-up and review of CT of chest. He is now nearly 6 months from completion of adjuvant durvalumab. His prednisone is titrated down to 5 mg daily and cough is intermittent. Still has dyspnea with moderate activity. No further ER visits or admissions. No infections, nausea, vomiting,diarrhea, and no abnormalities on immunotherapy labs. CT of chest shows no new infiltrate. Stable 13 mm focus in the right hepatic lobe which is unchanged from original CTs prior to starting therapy in 2020. We will continue to followevery [address], but should not require immunotherapy labs except annual TSH/free T4. He may return sooner if signs or symptoms of recurrence. Low complexity 25-minute follow-up for surveillance lung cancer. 11/04/2022: Fer is here for 3-month follow-up and review of CT chest after completing last dose 09/01/2022 of 1 year adjuvant durvalumab after concurrent chemoradiation. His dyspnea and cough recur intermittently and he remains on low-dose prednisone 10 mg daily with follow-up planned with Dr. Ann in mid November. He has not had any further ER visits or evidence of infection. No nausea/vomiting, diarrhea, bone pain, and immunotherapy labs normal. We will recheck his thyroid function tests with CBC and CMP at his 3-month follow-up. We reviewed images and reports of CT scans of chest from April, July, and most recent 11/01/2022 restaging scans. He has stable soft tissue prominence inthe right hilum and to a lesser extent the left hilum. Airspace opacities in the right perihilar distribution of the right upper lobe with a lesser extent inthe left perihilar region is unchanged compared to prior exam. Stable 13 mm focus of hypoattenuation in right hepatic lobe favoring cyst. 1.6 cm stone in the left renal pelvis. No obvious bony metastatic lesions. The patient denies any back pain or dysuria/hematuria. We will plan to follow-up exam, labs, and imaging in 3 months. He may return sooner if signs or symptoms of recurrence. Moderate complexity 35-minute follow-up visit for review of symptoms, labs, and images after completing 1 year of durvalumab maintenance therapy. 08/04/2022: Bert is here for follow-up on durvalumab maintenance therapy. He has 2 more doses 1 today and 1 in 4 weeks then will complete his 1 year maintenance therapy. He was seen by Dr. Ann of pulmonary medicine who has prescribed serial prednisone tapers for pneumonitis (40 mg x 1 week, 30 mg x 1 week, 20 mg x 1 week, 10 mg x 1 week and repeat each month). His dyspnea and cough has somewhat stabilized since the steroid courses, although he had a coughing fit yesterday that lasted about 3 hours. He did not seek any furtherevaluation in the emergency room and this has now resolved. He is currently on 30 mg daily of his prednisone without any significant cough or dyspnea greater than baseline. Otherwise no immunotherapy related toxicities such as rash or diarrhea. We reviewed his restaging CT chest from 08/02/2022 that shows persistent consolidative changes in the right upper lobe with loculated pleural effusion that is unchanged. Prior cavitary component has essentially resolved since prior study with stable scarring in the left hilar region. No new pulmonary nodules are noted. Labs show mild leukocytosis related to his steroids but otherwise stable hemoglobin and normal platelet count. Renal and hepatic function normal and no abnormalities of thyroid or adrenal function. Hewill continue 2 further cycles of therapy with durvalumab then stop. Follow-up in 3 months with contrast chest CT. He may return sooner as needed. Moderate complexity 35-minute follow-up visit for review of images and reports of CT and discussion of further therapy. 05/05/2022: Improvement of prior right chest wall pain with use of Medrol Dosepaks after each cycle of durvalumab. Stable dyspnea and cough. No other immunotherapy related toxicities other than pneumonitis. Restaging CT Chest reviewed--primary lesion similar size but more cavitary with surrounding ground glass opacities in prior radiation field. Will continue current durvalumab maintenance. Next f/u 3 months with contrast chest CT. End of therapy will be 08/2022 (sooner if unable to tolerate due to pneumonitis--tolerable with brief steroid course each cycle. 02/17/2022: Bert presents today to evaluate symptoms. He previously noted significant dyspnea and cough with his durvalumab, so he was given a Medrol Dosepakto start 1 day after durvalumab treatment. He states after this cycle, he noticed a significant improvement in his symptoms with initiation of the dosepakand denies any dyspnea at rest or around the house after treatment. He still hasdyspnea on exertion when he's more active, but this is mild now and more his baseline. He continues to deny other symptoms such as rash, abdominal pain or diarrhea. Labs are reviewed and remain stable. We will continue with durvalumab + medrol dosepak every 4 weeks, and will plan for follow-up in 3 months with . He will call sooner if his symptoms worsen or new symptoms develop. 01/21/2022: Bert presents for durvalumab immunotherapy today. He notes that with prior cycles he has had recurrent dyspnea and cough that is treated with steroids with some improvement about 1 week prior to his next cycle. He now notes that his shortness of breath is at baseline. He has otherwise not had anyother symptoms such as diarrhea, skin rash, or abdominal pain and his labs remained stable. 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 We discussed 1 more cycle durvalumab and I will give him a Medrol Dosepak to start 1 day after his durvalumab dose to see if we can preempt his inflammatory reaction. If he does not tolerate his durvalumab well we may consider stopping maintenance immunotherapy early. He is in agreement with thisplan. Next toxicity visit within 1 month. 12/23/2021: Bert presents today with his for follow-up for his lung cancer. He states he is feeling better finally today after the past 2 weeks with pneumonia. He finished his antibiotic yesterday. He is still short of breath, but this is somewhat improved. He continues with cough but denies chest pain, fever or chills. He is tolerating durvalumab well- no diarrhea, skin rash or abdominal pain. Labs reviewed and ok for treatment. We will have him get a chestXR prior to treatment today and will plan his re-staging CT scan for 2-3 weeks with follow-up after. He will continue monthly durvalumab unless he progresses, has a pneumonitis or other new symptoms of toxicity arise. 11/11/2021: Bert presents with his for follow-up. His severe right-sided chest pain and dyspnea has now completely resolved from last visit. He has not had any suggestive toxicities from durvalumab--no diarrhea, skin rashes, or recurrent dyspnea. He has returned to normal performance status and denies any fatigue. We reviewed his laboratories showing no immunotherapy related endocrine toxicities. Since he is now at normal baseline, I will give his 2-week dosing of durvalumab today then change to every 4-week dosing. His next follow-up with me will be in 6 weeks and he will have restaging CT chest in lateFebruary unless new symptoms arise. 10/14/2021: Bert was sent to ER 1 week ago (10/07/2021) after presenting with severe right-sided chest pain for about 1 week. He did not report worsening with inspiration but was worse with eating. Chest CT showed regression of priorright middle lobe tumor with internal necrosis and regression of prior adenopathy. There was an infiltrate posterior to his mass and no evidence of pulmonary embolism. He completed a course of azithromycin and notes that his chest pain is now completely resolved. He has no dyspnea with exertion or cough. Otherwise tolerated initial Durvalumab dose well--few loose stools the evening of his dose but no anny diarrhea, no skin rashes, and laboratories are stable. He also notes that Dr. Smith recommended starting N-acetylcysteine supplementation for his immunity, however I asked him to hold this for now sincehe has only recently started durvalumab and I will research whether this is indicated with his immunotherapy. --We will continue every 2-week durvalumab to see if he has any further toxicities, then follow-up in 1 month. If well-tolerated we will change to every 4-week dosing. 09/24/2021: Bert presents with his to discuss commencing immunotherapy after completing 6 weeks of concurrent chemoradiation (last dose chemo 09/10, last radiation 09/16). Fatigue improved but he has had 3 episodes of epistaxis over the past week (longest lasting about 6-7 minutes). Improved with saline nasal spray--offered ENT eval but he wants to observe. Mild dyspnea on exertionand cough. Today we discussed immunotherapy maintenance with Durvalumab over one year (initially every 2 weeks, then every 4 weeks if well tolerated). Goal of therapy is curative. --Today we reviewed immunotherapy (checkpoint inhibitor) counseling for Durvalumab. Common toxicities were reviewed to include infusion reactions and allergic reactions, fatigue, skin rashes, visual and ocular toxicities, diarrhea, abdominal pain from pancreatitis, and abnormal thyroid, adrenal, and pituitary function. Other toxicities may include pneumonitis, sexual side effects, neurologic, hepatic and renal toxicities. The patient signed informed consent and will follow-up as directed. I will see him C2D1 durvalumab for tox check. 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 He has tolerated his treatment exceptionally well and has had very few side effects/toxicities to therapy. He reports good appetite, stable weight.Essentially has no pain and has only required 4 doses of Zofran for breakthroughnausea. He has mild GERD-like symptoms, well controlled with Prilosec. Specifically denies any issues with headaches, fever/chills, cough, shortness ofbreath, bowel/bladder problems, peripheral neuropathy, skin rash or lower extremity edema. --He will complete radiotherapy on Tuesday, September 16, 2021 and his last cycle (#6) weekly Carbo/Taxol will be given today. 08/27/2021: Here for week for follow-up of weekly carboplatin paclitaxel. Fatigue mildly increased with decreased appetite and minimal dysphagia but does not need to take additional medicine other than Tylenol for this. Otherwise no cough, dyspnea, fever, chills and no significant peripheral neuropathy. He willfollow-up in 2 weeks for chemoradiation toxicity visit with our nurse practitioner. I will then see him in 4 weeks after completion of chemoradiation and will discuss whether he gets consolidation carboplatin paclitaxel after restaging scan or continue with maintenance immunotherapy alone. 08/12/2021: Started concurrent chemoradiation with weekly Carboplatin/Paclitaxelone week ago. Tolerating well without cough, dyspnea, chest pain, bowel or bladder symptoms, or neuropathy. Will continue to follow every 2 weeks while onchemoradiation--likely candidate for one year immunotherapy with Imfinzi if response. 07/17/2021: This is a 71 yo male accompanied by his for new diagnosis of right upper lobe mass, wrapping around right mainstem bronchus, with associated mediastinal adenopathy. He apparently had right upper lobe pneumonia in 2019, no imaging since that time. He is a former smoker, prior 40 year history, quit about 18 years ago. About 1-2 months ago he had persistent nonproductive cough without hemoptysis. Increased dyspnea, but his notes he has had chronic dyspnea over the past 4 years. Slow nonquantified weight loss, decreased appetite, hoarseness, and mild right chest discomfort. CT Chest imaging at [facility] on 06/23/2021 showed a large lobulated mass of the superior segment of the right upper lobe extending to the hilum. There appears to be invasion of the mass intothe right mainstem bronchus. The mass measures approximately 5.5 x 7.6 x 6.0 cm. There is a low density lesion in the liver that appears to be a cyst. 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 He does not have other significant comorbidities, prior malignancy, or known family history. We discussed that involvement of the right mainstem bronchus and mediastinum is consistent with likely Stage III lung cancer, but he needs a PET/CT to exclude liver metastases. If no distant metastatic disease on PET/CT, we will coordinate chemoradiation with weekly carboplatin/paclitaxel. I ordered PET/CT, radiation oncology consultation and reviewed informed consent for Carboplatin/Paclitaxel. I will see him the same day as Radiation Oncology consult to review PET/CT. He did sign informed consent today to expedite concurrent chemoradiation if no distant metastatic disease. We will also contact pathology to add PDL1 status--if metastatic disease, he may be a candidate for immunotherapy +/- chemotherapy. Today we reviewed chemotherapy counseling for weekly Carboplatin and Paclitaxel. Goal of therapy is curative if stage III. Common toxicities were reviewed to include infusion reactions/allergic reactions, myelosuppression, fatigue, nausea, vomiting, constipation, diarrhea, mouth sores, and alopecia. Other toxicities may include pneumonitis, neurologic, hepatic and renal toxicities. Risk of secondary malignancy due to effects of chemotherapy on bone marrow. Thepatient signed informed consent and will follow-up as directed. - Summary of Therapies Summary of Therapies: 08/06/2021: Commenced concurrent chemoradiation with Carboplatin AUC 2 IV Day 1 and Paclitaxel 45mg/m2 IV Day 1 weekly x 6 cycles. He was started on concurrent chemoradiotherapy treatment and received a dose of 6000 cGy to the right upper lobe mass and mediastinal nodes (bilateral) in 30 fractions from 08/06/2021 to 09/16/2021 over 41 elapsed days. Last cycle chemotherapy: 09/10/2021 - 09/30/2021: Cycle 1, Day 1 Durvalumab 10mg/kg IV every 2 weeks immunotherapy x 1 year. After 11/11/2021 2-week dose, changed to flat dose 1500 mg IV every 4-week dosing to complete 1 year of adjuvant immunotherapy. Last dose 09/01/2022. ROS Details: All systems reviewed & no additional complaints except as documented Subjective/ROS - Narrative: CONSTITUTIONAL: Stable mild fatigue (after chemoradiation completed), negative for fever or night sweats. Independent for ADLs and not requiring home oxygen. HEAD AND NECK: Negative for changes in hearing and vision. Negative for mouth ulcers, nasal congestion and nasal drainage. No recurrence of prior epistaxis. PULMONARY: Late September 2021 ER for worsening right chest wall pain--regressionof tumor with necrosis and small infiltrate noted on CT--prior cavitary lesion within area of consolidation of right lower lobe is now resolved. Recurrent dyspnea/cough intermittent and continues to improve. He continues maintenance 5mg prednisone prescribed by Dr. Ann. No hoarseness or significant dyspnea onexertion. CARDIOVASCULAR: Negative for claudication and irregular heartbeat/palpitations. No edema. GASTROINTESTINAL: Negative for abdominal pain, constipation, diarrhea, nausea, or vomiting. Improved appetite and improving dysphagia/resolved odynophagia as per HPI. GENITOURINARY: Negative for dysuria and hematuria. + h/o nephrolithiasis--no current symptoms. ENDOCRINE: Negative for cold intolerance and heat intolerance. CENTRAL NERVOUS SYSTEM: Negative for gait disturbance and headache. No history of stroke. PSYCHIATRIC: Negative for anxiety or depression. DERMATOLOGICAL: Negative for pruritus and rash. Negative for suspicious skin lesions. MUSCULOSKELETAL: Negative for back pain and bone/joint symptoms. HEMATOLOGICAL: Negative for bleeding and easy bruising. Negative for history of transfusion or thromboembolic disease ALLERGY: Negative for environmental allergies and food allergies. PMFSH - History Attestation statement: The following information was validated with the patient. Source: Old Records Reviewed - Medical History Medical History: Medical History (Last Reviewed 02/03/23 @ 10:29 by Natacha Hess MD) Cough Hyperlipidemia Hypertensive heart disease Kidney stone Lung mass Shortness of breath - Surgical History Surgical History: Surgical History (Last Reviewed 02/03/23 @ 10:29 by Natacha Hess MD) History of carpal tunnel release History of neck surgery - Family History Family History: Family History (Last Reviewed 02/03/23 @ 10:29 by Natacha Hess MD) Father Heart disease Mother Diabetes Hypertension Sister Cancer - Social History Smoking Status: Former smoker Substance Use Type: None Home Medications & Allergies Allergies No Known Drug Allergies Allergy (Unknown, Verified 02/03/23 08:26) none Home Medications simvastatin 40 mg tablet (Zocor) 80 mg PO DAILY 02/26/18 [History Confirmed 02/03/23] aspirin 81 mg chewable tablet 81 mg PO DAILY ##0 02/27/18 [Rx Confirmed 02/03/23] hydrochlorothiazide 25 mg tablet 25 mg PO DAILY 30 days #30 tabs 02/27/18 [Rx Confirmed 02/03/23] carvedilol 3.125 mg tablet 3.125 mg PO Q12H 07/17/21 [History Confirmed 02/03/23] losartan 25 mg tablet 25 mg PO DAILY 07/17/21 [History Confirmed 02/03/23] docusate sodium 100 mg capsule (Colace) 200 mg PO QHS 01/21/22 [History Confirmed 02/03/23] prednisone 10 mg tablet 5 mg PO DAILY 11/04/22 [History Confirmed 02/03/23] Objective - Height/Weight Height/Weight: Height 5 ft 10 in Weight 126.5 kg BSA for Today's Weight 2.44 - Vital Signs Vital Signs: 02/03/23 08:26 Temperature 97.8 F Pulse Rate [Left Brachial] 68 Respiratory Rate 20 Blood Pressure [Right Arm] 127/84 02 Sat by Pulse Oximetry 97 - Pain Right Chest Pain Intensity: 2 - Distress Screening Distress Screen Results: RN Distress Screening Start: 07/17/21 11:07 Freq: Status: Complete Protocol: Document 09/01/21 09:44 DB (Rec: 09/01/21 09:45 DB [id number]) Distress Screening Distress Score: 2 Emotional Concerns Feeling uncertain about the future Distress Screening Total 2 Physical Exam Narrative: CONSTITUTIONAL: The patient is in no acute distress. HEAD / FACE: Normocephalic; atraumatic, no scleral icterus. EYES: Pupils are equal and reactive to light. Conjunctivae and lids are benign in appearance. Ocular movement intact. EARS: Hearing grossly intact. NOSE / MOUTH / THROAT: Nose, mouth, tongue and oropharynx are benign in appearance. No signs of inflammation. NECK / THYROID: Neck is supple. Thyroid is symmetrical, without thyromegaly, masses or palpable nodules. LYMPHATIC: No palpable cervical, supraclavicular, axillary, or inguinal adenopathy. RESPIRATORY: Normal to inspection. Lungs clear to auscultation bilaterally--prolonged expiratory phase similar to prior exams; no significant rhonchi, wheezes or rales. Nonlabored respirations CARDIOVASCULAR: Regular rate and rhythm. No murmurs, gallops, or rubs. VASCULAR: Carotid, radial, femoral and pedal pulses present bilaterally. No bruits. ABDOMEN: Bowel sounds normoactive. Soft, nontender and non-distended. No hepatosplenomegaly. No masses. INTEGUMENTARY: The skin is unremarkable. No rashes. No suspicious lesions MUSCULOSKELETAL: Normal musculature, no joint deformities or abnormalities, normal range of motion for all four extremities. EXTREMITIES: No edema, cyanosis or clubbing. NEUROLOGICAL: Alert and oriented. Cranial nerves intact. No gross motor or sensory deficits. Ambulates independently. PSYCHIATRIC: No anxiety or evidence of depression. - ECOG Performance Status ECOG Score: 1 Results - Labs Labs: Diagram of Most Recent CBC and CMP 02/01/23 08:56 02/01/23 08:56 Labs - Last 7 Days 02/01/23 08:56: ACTH 19.2 02/01/23 08:56: PHA Creatinine Clear 82.10, Sodium 140, Potassium 3.7, Chloride 103, Carbon Dioxide 28.5, Anion Gap 12.2, BUN 14, Creatinine 1.08, Est GFR (CKD-EPI) > 60.0, Glucose 132 H, Calcium 10.3, Total Bilirubin 0.4, AST 15, ALT 20, Alkaline Phosphatase 46, Lactate Dehydrogenase 162, Total Protein 7.2, Albumin 4.0, Globulin 3.2, Albumin/Globulin Ratio 1.3, Free T4 0.68, TSH 3rd Generation 1.88 02/01/23 08:56: Corrected WBC 6.4, Uncorrected WBC Count 6.4, RBC 4.31, Hgb 12.9L, Hct 37.9 L, MCV 88.0, MCH 29.9, MCHC 34.0, RDW 14.6, Plt Count 343, MPV 7.0, Neut % (Auto) 64.3, Lymph % (Auto) 14.0, [place] % (Auto) 19.8, Eos % (Auto) 1.4, Baso % (Auto) 0.5, Nucleat RBC Rel Count 0.1, Neut # (Auto) 4.1, Lymph # (Auto) 0.9 L, [place] # (Auto) 1.3 H, Eos # (Auto) 0.1, Baso # (Auto) 0.0 - Impressions CT chest w con 02/01/2023 8:51 AM SIGN AND SYMPTOMS: Lung cancer, restaging CONTRAST: 90 mL of intravenous Isovue-300 TECHNIQUE: Multidetector CT axial slices of the chest were obtained with IV contrast. Multiplanar reformats were performed and viewed on a separate workstation and reviewed to further define anatomy and possible pathology. CT was performed with one or more of the following dose reduction techniques: Automated exposure control, adjustment of the mA and/or kV according to patient size, or use of iterative reconstruction technique. COMPARISON: 11/01/2022. FINDINGS: Lower neck: Thyroid gland within normal limits, no supraclavicle adenopathy. Vessels: Atherosclerotic changes are present in the thoracic aorta and coronary arteries. There is no evidence of pulmonary embolism. Mediastinum and Pau: Calcified mediastinal and left hilar lymph nodes are notedsimilar to the prior exam. Similar airspace consolidation is noted emanating from the right hilum with soft tissue prominence throughout the right hilum similar to the prior exam. There is airspace opacities emanating from the left suprahilar region into the left upper lobe. Heart: Normal size. No pericardial effusion. Airways: There is narrowing of the right mainstem bronchus similar to the prior exam. Lungs: Airspace opacities are noted posteriorly in the right upper lobe emanating from the right hilum. There is a 3 mm calcified granuloma in the left upper lobe near the lingula similar to the prior exam. There is interstitial prominence bilaterally. Pleura: Within normal limits. Chest Wall: Within normal limits. Upper Abdomen: There are simple cysts in the right renal cortex requiring no further follow-up. There is a decompressed gallbladder with mild gallbladder wall thickening similar to the prior exam. There is a 13 mm hypoattenuating focus in the right hepatic lobe. This is unchanged. Bones: Degenerative changes are noted in the thoracic spine. There is anterior fusion in the lower cervical spine. Degenerative changes are also noted in the shoulders. CT/CT chest w con IMPRESSION: Similar suspected posttreatment changes are noted in the perihilar regions and right upper lobe without significant interval change from prior exam. No evidence of disease recurrence or new metastatic disease. There is a 13 mm hypoattenuating focus in the right hepatic lobe. This is unchanged. Impression dictated by: Carlos Cavanaugh M.D.02/01/2023 2:27 PM Assessment and Plan - TNM Staging Staging: Stage IIIB right upper lobe (overlapping sites involving right mainstem bronchus). No distant metastatic disease on PET/CT for staging. 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 No distant metastatic disease on PET/CT, therefore we coordinated chemoradiation with weekly carboplatin/paclitaxel. He commenced weekly Carboplatin/Paclitaxel with radiation on 08/06/2021 and today he will be receiving #6 Carboplatin/Paclitaxel and is scheduled to completed radiation therapy on 09/16/2021. 08/12/2021: No toxicities other than mild increase in creatinine. 08/27/2021: Grade 1 odynophagia with decreased appetite. Added sucralfate slurry 1 g every 6 hours as needed for remainder of chemoradiation. 09/10/2021: Grade 1 fatigue; otherwise no significant toxicities to chemotherapy; weight is stable; stable anemia. Normal electrolytes. Minimal nausea and no significant pain other than some acid reflux like symptoms; well controlled with Prilosec. --Patient completed Cycle 6 weekly Carboplatin/Paclitaxel therapy (09/10/2021) and radiotherapy to complete on 09/16/2021. ----- ----- 09/24/2021: Reviewed informed consent for Durvalumab maintenance therapy 10mg/kg IV every 2 weeks x 1 year (ok to change to monthly therapy if well tolerated). 10/14/2021: Patient was sent to ER for right chest wall pain on 10/07 following first durvalumab dose 09/30/2021. Noted to have regression of prior right middle lobe lesion and adenopathy with small adjacent infiltrate (this may be postradiation change but patient was placed on antibiotics). His pain has now completely resolved with no significant cough. Otherwise tolerating immunotherapy well. We will continue him on every 2-week dosing until receivingwhether he has recurrent chest discomfort or symptoms on durvalumab. Next follow-up with me in 4 weeks for toxicity check on immunotherapy. We will not repeat his chest CT since this was just performed in emergency department. 01/22/2022: Patient is here for 3-month follow-up on durvalumab maintenance therapy. He has had recurrent episodes of chest wall pain and dyspnea, previously treated with antibiotics and subsequent steroids. He notes that his symptoms tend to worsen for about 1 to 2 weeks following his immunotherapy, usually beginning 2 to 3 days after therapy. I will give him a brief course of Medrol Dosepak with each cycle and he will have reassessment with nurse practitioner for toxicity visit next week to see if this prevents his cough and dyspnea symptoms. We reviewed his restaging CT chest which shows reduction in size of his cavitary lesion in the right hilum from 6.5 to 5.2 cm in greatest diameter. There are evolving postradiation changes consistent with his pneumonitis and interval development of trace right-sided pleural effusion. Next follow-up with me will be in [address] chest at that time, although he may follow-up sooner after his [employer] visit if he is having persistent pneumonitis. 02/17/2022: He has done very well with the Medrol Dosepak after Durvalumab infusion, and denies chest pain, cough or dyspnea at rest- overall near resolution of symptoms. We will continue with this plan and he will follow-up with Dr. Hess in [address], labs. He has no questions today and isin agreement with this plan. 05/05/2022: No new symptoms--stable dyspnea/cough and improved right chest discomfort with Medrol dose pack after each cycle. Restaging CT with decreasingsoft tissue component within cavitary lesion. Some surrounding ground glass opacities consistent with known pneumonitis in prior radiation field. Followup [address] Chest. Continue Medrol dose pack after each cycle. 08/04/2022: Bert notes that since he saw Dr. Ann last month his breathing hasbeen relatively stable. He was placed on tapering doses of steroids which will be Repeated monthly until the end of immunotherapy. Yesterday he had a prolonged coughing episode that has resolved and he will continue on current dose of prednisone 30 mg daily until his next scheduled step down to [address] Ann did not note any benefit from inhaled bronchodilators or steroids but did recommend systemic steroids. The patient's most recent CT scanshowed resolution of his prior cavitary lesion and overall mild regression of consolidation in the right mid to lower lung joiner. Otherwise no new nodules. The patient will receive second to last dose of durvalumab today. Last dose 1 year of maintenance durvalumab will be 09/01/2022. I will schedule restaging CT chest and follow-up with me in 3 months for survivorship visit. Hemay return sooner if new symptoms arise. Mod complexity visit over 35 minutes to review restaging scans. 11/04/2022: Stable intermittent dyspnea and cough on low-dose prednisone 20 mg daily followed by Dr. Ann who sees him in mid November. No residual symptoms concerning for immunotherapy related toxicity other than pneumonitis noted below. CT scan shows stable postradiation changes of right upper lobe and bilateral perihilar areas. No areas concerning for metastatic disease. His last dose of durvalumab was 09/01/2022. Next follow-up with restaging CT chest with contrast and labs including CBC, CMP, TSH, and free T4 in January 2023 but hemay return sooner if new symptoms arise concerning for recurrence. Okay for himto see nurse practitioner and review survivorship plan at that time. Moderate complexity 35-minute follow-up. 02/03/2023: Cough and dyspnea are slowly improving since slow titration of prednisone, now 5 mg daily. Postradiation changes but no progression on chest CT. Continue every 3-month surveillance. Low complexity follow-up 25 minutes. (2) Drug-induced pneumonitis Recurrent pneumonitis as addressed above. Medrol Dosepak for 1 week following next durvalumab and reassessment with next practitioner to see if this alleviates his symptoms. 02/17/2022: see above. Near resolution of symptoms with addition of Medrol Dosepak. He is back to his baseline dyspnea on exertion only with increased activity 05/05/2022: Intermittent worsening of cough and dyspnea between cycles but much improved with medrol dose pack each cycle. 08/04/2022: I reviewed progress note from consultation with pulmonary medicine Dr. Ann who recommends recurrent courses of prednisone 40 mg daily for 7 days, 30 mg daily for 7 days, 20 mg daily for 7 days, then 10 mg daily for 7 days. This will be repeated once monthly until pneumonitis improved off immunotherapy within the next 2 months. He will have follow-up appointment with Dr. Ann next month. 11/04/2022: Patient does not feel that his cough and dyspnea is improved since end of durvalumab with last dose 09/01/2022, however he appears to be less symptomatic on exam today. He has maintained on prednisone 10 mg daily until follow-up with Dr. Ann next month. Imaging shows stable postradiation changes, likely exacerbated by prior immunotherapy. We will continue to follow with every 3-month scans. 02/03/2023: Cough and dyspnea are slowly improving since slow titration of prednisone, now 5 mg daily. Postradiation changes but no progression on chest CT. Continue follow-up with Dr. Ann as directed. (3) Encounter for coordination of complex care No distant metastatic disease on PET/CT for staging (bilateral mediastinal and subcarinal adenopathy noted). Concurrent chemoradiation commenced 08/06/2021--Carboplatin AUC 2 IV and Paclitaxel 45mg/m2 IV weekly x 6-7 weeks. Tolerated well. He completed Cycle 6 weekly Carboplatin/Paclitaxel therapy 09/10/2021 and radiotherapy complete on 09/16/2021. Cycle 1 day 1 09/30/2021 durvalumab 10mg/kg IV every 2 weeks immunotherapy as noted above. Changed to flat dose durvalumab 1500 milligrams IV every 4 weeks with 11/23/2021 dose. 08/04/2022: Continue durvalumab 1500mg IV every 4 weeks in addition to Medrol Dosepak day after each infusion given improvement of pneumonitis symptoms. End of 1 year of therapy 09/01/2022 02/03/2023: Follow-up of 3-month restaging scans and review of symptoms. Review images and reports over total 25-minute visit. - Chemo Plan Chemo Plan (Dose, Rate, Freq): Concurrent chemoradiation with Carboplatin AUC 2 IV Day 1 and Paclitaxel 45mg/m2IV Day 1 weekly x 6-7 weeks. Durvalumab 10mg/kg IV every 2 week immunotherapy x2 months then 1500mg IV q 4weeks to complete 1 year of therapy, last dose 09/01/22. Goal of Treatment: Curative - Time with Patient Time Spent with Patient (Follow Up Visit): 25 minutes - low complexity for exam and symptom review for immunotherapy related pneumonitis, 5 months from end of durvalumab therapy, restaging CT chest review. Coordination of Care & Counseling Time: Greater than 50% of time spent with patient was for coordination of care (as documented) and [id number] counseling of patient and/or family. Dictated By: Natacha Hess MD DD/ [id number] Signed By: <Electronically signed by MD Natacha Hess> 02/03/[address] [place] [address] Work Phone: Progress note Author Natacha Hess [facility] March 08, 2024 9:22am Note Date/Time March 08, 2024 8:[address] [facility] [place] [address] Cancer Center Note Signed Patient: Bert Yeung MR#: [id number] : 1950 Acct:[id number] Age/Sex: 73 / M Type: REG AMB Date of Service: 03/08/24 Copies to: Howie Smith DO~ Assessment & Plan A/P (1) Malignant neoplasm of overlapping sites of right bronchus and lung: Plan: Stage IIIB right upper lobe (overlapping sites involving right mainstem bronchus). No distant metastatic disease on PET/CT for staging. --09/08/2023: Now 2 years from diagnosis with no recurrence and stable right upper lobe bronchiectasis on restaging scans. We will extend surveillance follow-up to every 6 months. 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 No distant metastatic disease on PET/CT, therefore we coordinated chemoradiation with weekly carboplatin/paclitaxel. He commenced weekly Carboplatin/Paclitaxel with radiation on 08/06/2021 and today he will be receiving #6 Carboplatin/Paclitaxel and is scheduled to completed radiation therapy on 09/16/2021. 08/12/2021: No toxicities other than mild increase in creatinine. 08/27/2021: Grade 1 odynophagia with decreased appetite. Added sucralfate slurry 1 g every 6 hours as needed for remainder of chemoradiation. 09/10/2021: Grade 1 fatigue; otherwise no significant toxicities to chemotherapy; weight is stable; stable anemia. Normal electrolytes. Minimal nausea and no significant pain other than some acid reflux like symptoms; well controlled with Prilosec. --Patient completed Cycle 6 weekly Carboplatin/Paclitaxel therapy (09/10/2021) and radiotherapy to complete on 09/16/2021. 09/24/2021: Reviewed informed consent for Durvalumab maintenance therapy 10mg/kg IV every 2 weeks x 1 year (ok to change to monthly therapy if well tolerated). 10/14/2021: Patient was sent to ER for right chest wall pain on 10/07 following first durvalumab dose 09/30/2021. Noted to have regression of prior right middle lobe lesion and adenopathy with small adjacent infiltrate (this may be postradiation change but patient was placed on antibiotics). His pain has now completely resolved with no significant cough. Otherwise tolerating immunotherapy well. We will continue him on every 2-week dosing until receivingwhether he has recurrent chest discomfort or symptoms on durvalumab. Next follow-up with me in 4 weeks for toxicity check on immunotherapy. We will not repeat his chest CT since this was just performed in emergency department. 01/22/2022: Patient is here for 3-month follow-up on durvalumab maintenance therapy. He has had recurrent episodes of chest wall pain and dyspnea, previously treated with antibiotics and subsequent steroids. He notes that his symptoms tend to worsen for about 1 to 2 weeks following his immunotherapy, usually beginning 2 to 3 days after therapy. I will give him a brief course of Medrol Dosepak with each cycle and he will have reassessment with nurse practitioner for toxicity visit next week to see if this prevents his cough and dyspnea symptoms. We reviewed his restaging CT chest which shows reduction in size of his cavitary lesion in the right hilum from 6.5 to 5.2 cm in greatest diameter. There are evolving postradiation changes consistent with his pneumonitis and interval development of trace right-sided pleural effusion. Next follow-up with me will be in [address] chest at that time, although he may follow-up sooner after his [employer] visit if he is having persistent pneumonitis. 02/17/2022: He has done very well with the Medrol Dosepak after Durvalumab infusion, and denies chest pain, cough or dyspnea at rest- overall near resolution of symptoms. We will continue with this plan and he will follow-up with Dr. Hess in [address], labs. He has no questions today and is in agreement with this plan. 05/05/2022: No new symptoms--stable dyspnea/cough and improved right chest discomfort with Medrol dose pack after each cycle. Restaging CT with decreasingsoft tissue component within cavitary lesion. Some surrounding ground glass opacities consistent with known pneumonitis in prior radiation field. Followup [address] Chest. Continue Medrol dose pack after each cycle. 08/04/2022: Bert notes that since he saw Dr. Ann last month his breathing hasbeen relatively stable. He was placed on tapering doses of steroids which will be Repeated monthly until the end of immunotherapy. Yesterday he had a prolonged coughing episode that has resolved and he will continue on current dose of prednisone 30 mg daily until his next scheduled step down to [address] Ann did not note any benefit from inhaled bronchodilators or steroids but did recommend systemic steroids. The patient's most recent CT scanshowed resolution of his prior cavitary lesion and overall mild regression of consolidation in the right mid to lower lung joiner. Otherwise no new nodules. The patient will receive second to last dose of durvalumab today. Last dose 1 year of maintenance durvalumab will be 09/01/2022. I will schedule restaging CT chest and follow-up with me in 3 months for survivorship visit. Hemay return sooner if new symptoms arise. Mod complexity visit over 35 minutes to review restaging scans. 11/04/2022: Stable intermittent dyspnea and cough on low-dose prednisone 20 mg daily followed by Dr. Ann who sees him in mid November. No residual symptoms concerning for immunotherapy related toxicity other than pneumonitis noted below. CT scan shows stable postradiation changes of right upper lobe and bilateral perihilar areas. No areas concerning for metastatic disease. His last dose of durvalumab was 09/01/2022. Next follow-up with restaging CT chest with contrast and labs including CBC, CMP, TSH, and free T4 in January 2023 but hemay return sooner if new symptoms arise concerning for recurrence. Okay for himto see nurse practitioner and review survivorship plan at that time. Moderate complexity 35-minute follow-up. 02/03/2023: Cough and dyspnea are slowly improving since slow titration of prednisone, now 5 mg daily. Postradiation changes but no progression on chest CT. Continue every 3-month surveillance. Low complexity follow-up 25 minutes. 05/05/2023: Cough and dyspnea stable although now maintaining prednisone 10 mg daily, following with Dr. Mathews. Postradiation changes without progression on chest CT but persistent volume loss and small right pleural effusion. Incidental note of left kidney staghorn calculus which is asymptomatic. Defer evaluation of this and mild hypokalemia to primary care. Next follow-up with chest CT with contrast will be deferred to 4 months and I will review symptoms, exam, and results of chest CT at that time. Low complexity follow-up 25 minutes. 09/08/2023: Patient has stable intermittent cough and dyspnea but no recent infections. Has been titrated off maintenance prednisone and chest CT was reviewed showing postradiation changes without new nodules or progression of known infiltrates. He reviewed the staghorn calculus with primary care who is decided to continue surveillance only. Next follow-up with CT chest with contrast is deferred to 6 months but he may return sooner if new issues arise. Low complexity follow-up 25 minutes. 03/08/2024: He still has intermittent right-sided chest pain but cough and dyspnea have improved. Mainly exacerbated by windy conditions but no limitations of activities. Chest CT was reviewed and is stable and we will continue monitoring every 6 months. No nodules suggestive of recurrence. He may return sooner if new issues arise. Moderate complexity 30-minute follow-up. (2) Drug-induced pneumonitis: Plan: Recurrent pneumonitis as addressed above. Medrol Dosepak for 1 week following next durvalumab and reassessment with next practitioner to see if this alleviates his symptoms. 02/17/2022: see above. Near resolution of symptoms with addition of Medrol Dosepak. He is back to his baseline dyspnea on exertion only with increased activity 05/05/2022: Intermittent worsening of cough and dyspnea between cycles but much improved with medrol dose pack each cycle. 08/04/2022: I reviewed progress note from consultation with pulmonary medicine Dr. Ann who recommends recurrent courses of prednisone 40 mg daily for 7 days, 30 mg daily for 7 days, 20 mg daily for 7 days, then 10 mg daily for 7 days. This will be repeated once monthly until pneumonitis improved off immunotherapy within the next 2 months. He will have follow-up appointment withDr. Ann next month. 11/04/2022: Patient does not feel that his cough and dyspnea is improved since end of durvalumab with last dose 09/01/2022, however he appears to be less symptomatic on exam today. He has maintained on prednisone 10 mg daily until follow-up with Dr. Ann next month. Imaging shows stable postradiation changes, likely exacerbated by prior immunotherapy. We will continue to follow with every 3-month scans. 02/03/2023: Cough and dyspnea are slowly improving since slow titration of prednisone, now 5 mg daily. Postradiation changes but no progression on chest CT. Continue follow-up with Dr. Ann as directed. 05/05/2023: Patient notes most recent follow-up with with Dr. Mathews and his current prednisone dose is 10 mg daily. Still no progression on chest CT but persistent postradiation changes and right lung volume loss. Continue follow-upwith pulmonary medicine as scheduled. 09/08/2023, 03/08/2024: No new symptoms. Titrated off prednisone for now and will continue follow-up with Dr. Mathews. (3) Staghorn renal calculus: Plan: Left kidney staghorn calculus noted on April 2023 imaging--partial imaging on current CT but no indication for intervention at this time. Patient does not have any symptoms but has had a history of nephrolithiasis. Continue surveillance with primary care Dr. Smith. (4) Encounter for coordination of complex care: Plan: No distant metastatic disease on PET/CT for staging (bilateral mediastinal and subcarinal adenopathy noted). Concurrent chemoradiation commenced 08/06/2021--Carboplatin AUC 2 IV and Paclitaxel 45mg/m2 IV weekly x 6-7 weeks. Tolerated well. He completed Cycle 6 weekly Carboplatin/Paclitaxel therapy 09/10/2021 and radiotherapy complete on 09/16/2021. Cycle 1 day 1 09/30/2021 durvalumab 10mg/kg IV every 2 weeks immunotherapy as noted above. Changed to flat dose durvalumab 1500 milligrams IV every 4 weeks with 11/23/2021 dose. 08/04/2022: Continue durvalumab 1500mg IV every 4 weeks in addition to Medrol Dosepak day after each infusion given improvement of pneumonitis symptoms. End of 1 year of therapy 09/01/202202/2524: Follow-up of 6-month restaging scans and review of symptoms. Review images and reports over total 25-minute visit. Orders: Orders CT chest w con 6 Months C34.81 - Malignant neoplasm of overlapping sites of right bronchus and lung, Z01.89 - Encounter for other specified special examinations Complete Blood Count Auto Diff 6 Months C34.81 - Malignant neoplasm of overlapping sites of right bronchus and lung, Z01.89 - Encounter for other specified special examinations Comprehensive Metabolic Panel 6 Months C34.81 - Malignant neoplasm of overlapping sites of right bronchus and lung, Z01.89 - Encounter for other specified special examinations Patient Instructions: Return in 6mths with CT chest, CBC CMP before visit with Dr Hess. CHEMO PLAN Treatment Plan Durvalumab 1500mg Q28D [Stopped Nov 04, 2022] No Active Chemotherapy History of Present Illness HPI 03/08/2024: Bert is here for now 6-month follow-up of his stage III lung cancer status post chemoradiation and adjuvant durvalumab. He has occasional right- sided sharp pains that resolved with deep breaths, likely related to his immunotherapy related pneumonitis. He was seen in the ER in October for respiratory infection but did not have admission and otherwise has not had any change of his chronic pulmonary management. We reviewed his chest CT that continues toshow posttreatment changes of the lower right upper lobe with bronchiectasis andstable slight pleural effusion. No suspicious pulmonary nodules for recurrence. In the absence of new symptoms he may continue follow-up visits and restaging chest CT every 6 months. He will return sooner if new issues arise. Moderate complexity 30-minute follow-up for review of images and reports restaging CT andhistory/exam 09/08/2023: Bert is here for 4-month follow-up with CT. On last imaging, he had an asymptomatic left kidney staghorn calculus and the decision was to continue observation only. 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 Stable dyspnea from prior visits. No recent admissions or antibiotics for worsening cough or dyspnea. CBC now with normal white blood cell count, unremarkable chemistry profile. Restaging CT chest from 08/17/2023 images and reports reviewed showing posttreatment changes of both lungs most prominently in the right upper lobe grossly similar to prior treatment associated bronchiectasis with associated small right-sided loculated pleural effusion. No new areas of consolidation or suspicious pulmonary nodules. Sincethe patient is regularly followed by pulmonary medicine and has remained clinically stable, we will extend his restaging CTs and exams to 6 months. He will return sooner if new issues arise. Low complexity 25-minute follow-up for surveillance of lung cancer symptoms and imaging. 05/05/2023: 3-month follow-up with review of CT of chest. Now nearly 9 months from completion of adjuvant durvalumab with prednisone now at 10 mg daily, followed by Dr. Mathews. Dyspnea is stable from prior visits but no further ERvisits or admissions. No recent infections or antibiotics. Laboratories unremarkable with normal hemoglobin, mild hypokalemia that he will follow-up with his primary care physician. Imaging is remarkable for stable posttreatmentchanges of the right upper lobe with volume loss and a small loculated right pleural effusion but no new consolidations suggestive of recurrence. There weresubcentimeter low-attenuation lesions near the gallbladder fossa which are unchanged from prior study and he is noted to have a staghorn type calculus in the left kidney without obstruction. I will have him discuss with primary care whether he should see urology for further evaluation. The patient denies any flank pain, urinary infections, or change in frequency. -- Since symptoms are stable and imaging has not shown any recurrence, I recommend extending his CT and follow-up visits to every 4 months. At his next follow-up in August he will be 1 year from end of adjuvant durvalumab. Patientis in agreement with this plan over this low complexity 25-minute follow-up for surveillance of lung cancer symptoms and imaging. 02/03/2023: 3-month follow-up and review of CT of chest. He is now nearly 6 months from completion of adjuvant durvalumab. His prednisone is titrated down to 5 mg daily and cough is intermittent. Still has dyspnea with moderate activity. No further ER visits or admissions. No infections, nausea, vomiting,diarrhea, and no abnormalities on immunotherapy labs. CT of chest shows no new infiltrate. Stable 13 mm focus in the right hepatic lobe which is unchanged from original CTs prior to starting therapy in 2020. We will continue to followevery [address], but should not require immunotherapy labs except annual TSH/free T4. He may return sooner if signs or symptoms of recurrence. Low complexity 25-minute follow-up for surveillance lung cancer. 11/04/2022: Fer is here for 3-month follow-up and review of CT chest after completing last dose 09/01/2022 of 1 year adjuvant durvalumab after concurrent chemoradiation. His dyspnea and cough recur intermittently and he remains on low-dose prednisone 10 mg daily with follow-up planned with Dr. Ann in mid November. He has not had any further ER visits or evidence of infection. No nausea/vomiting, diarrhea, bone pain, and immunotherapy labs normal. We will recheck his thyroid function tests with CBC and CMP at his 3-month follow-up. We reviewed images and reports of CT scans of chest from April, July, and most recent 11/01/2022 restaging scans. He has stable soft tissue prominence inthe right hilum and to a lesser extent the left hilum. Airspace opacities in the right perihilar distribution of the right upper lobe with a lesser extent inthe left perihilar region is unchanged compared to prior exam. Stable 13 mm focus of hypoattenuation in right hepatic lobe favoring cyst. 1.6 cm stone in the left renal pelvis. No obvious bony metastatic lesions. The patient denies any back pain or dysuria/hematuria. We will plan to follow-up exam, labs, and imaging in 3 months. He may return sooner if signs or symptoms of recurrence. Moderate complexity 35-minute follow-up visit for review of symptoms, labs, and images after completing 1 year of durvalumab maintenance therapy. 08/04/2022: Bert is here for follow-up on durvalumab maintenance therapy. He has 2 more doses 1 today and 1 in 4 weeks then will complete his 1 year maintenance therapy. He was seen by Dr. Ann of pulmonary medicine who has prescribed serial prednisone tapers for pneumonitis (40 mg x 1 week, 30 mg x 1 week, 20 mg x 1 week, 10 mg x 1 week and repeat each month). His dyspnea and cough has somewhat stabilized since the steroid courses, although he had a coughing fit yesterday that lasted about 3 hours. He did not seek any furtherevaluation in the emergency room and this has now resolved. He is currently on 30 mg daily of his prednisone without any significant cough or dyspnea greater than baseline. Otherwise no immunotherapy related toxicities such as rash or diarrhea. We reviewed his restaging CT chest from 08/02/2022 that shows persistent consolidative changes in the right upper lobe with loculated pleural effusion that is unchanged. Prior cavitary component has essentially resolved since prior study with stable scarring in the left hilar region. No new pulmonary nodules are noted. Labs show mild leukocytosis related to his steroids but otherwise stable hemoglobin and normal platelet count. Renal and hepatic function normal and no abnormalities of thyroid or adrenal function. Delorisll continue 2 further cycles of therapy with durvalumab then stop. Follow-up in 3 months with contrast chest CT. He may return sooner as needed. Moderate complexity 35-minute follow-up visit for review of images and reports of CT and discussion of further therapy. 05/05/2022: Improvement of prior right chest wall pain with use of Medrol Dosepaks after each cycle of durvalumab. Stable dyspnea and cough. No other immunotherapy related toxicities other than pneumonitis. Restaging CT Chest reviewed--primary lesion similar size but more cavitary with surrounding ground glass opacities in prior radiation field. Will continue current durvalumab maintenance. Next f/u 3 months with contrast chest CT. End of therapy will be 08/2022 (sooner if unable to tolerate due to pneumonitis--tolerable with brief steroid course each cycle. 02/17/2022: Bert presents today to evaluate symptoms. He previously noted significant dyspnea and cough with his durvalumab, so he was given a Medrol Dosepak to start 1 day after durvalumab treatment. He states after this cycle, he noticed a significant improvement in his symptoms with initiation of the dosepak and denies any dyspnea at rest or around the house after treatment. He still has dyspnea on exertion when he's more active, but this is mild now and more his baseline. He continues to deny other symptoms such as rash, abdominal pain or diarrhea. Labs are reviewed and remain stable. We will continue with durvalumab + medrol dosepak every 4 weeks, and will plan for follow-up in [address] Hess. He will call sooner if his symptoms worsen or new symptoms develop. 01/21/2022: Bert presents for durvalumab immunotherapy today. He notes that with prior cycles he has had recurrent dyspnea and cough that is treated with steroids with some improvement about 1 week prior to his next cycle. He now notes that his shortness of breath is at baseline. He has otherwise not had anyother symptoms such as diarrhea, skin rash, or abdominal pain and his labs remained stable. 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 We discussed 1 more cycle durvalumab and I will give him a Medrol Dosepak to start 1 day after his durvalumab dose to see if we can preempt his inflammatory reaction. If he does not tolerate his durvalumab well we may consider stopping maintenance immunotherapy early. He is in agreement with thisplan. Next toxicity visit within 1 month. 12/23/2021: Bert presents today with his for follow-up for his lung cancer. He states he is feeling better finally today after the past 2 weeks with pneumonia. He finished his antibiotic yesterday. He is still short of breath, but this is somewhat improved. He continues with cough but denies chest pain, fever or chills. He is tolerating durvalumab well- no diarrhea, skin rash or abdominal pain. Labs reviewed and ok for treatment. We will have him get a chestXR prior to treatment today and will plan his re-staging CT scan for 2-3 weeks with follow-up after. He will continue monthly durvalumab unless he progresses, has a pneumonitis or other new symptoms of toxicity arise. 11/11/2021: Bert presents with his for follow-up. His severe right-sided chest pain and dyspnea has now completely resolved from last visit. He has not had any suggestive toxicities from durvalumab--no diarrhea, skin rashes, or recurrent dyspnea. He has returned to normal performance status and denies any fatigue. We reviewed his laboratories showing no immunotherapy related endocrine toxicities. Since he is now at normal baseline, I will give his 2-week dosing of durvalumab today then change to every 4-week dosing. His next follow-up with me will be in 6 weeks and he will have restaging CT chest in lateFebruary unless new symptoms arise. 10/14/2021: Bert was sent to ER 1 week ago (10/07/2021) after presenting with severe right-sided chest pain for about 1 week. He did not report worsening with inspiration but was worse with eating. Chest CT showed regression of priorright middle lobe tumor with internal necrosis and regression of prior adenopathy. There was an infiltrate posterior to his mass and no evidence of pulmonary embolism. He completed a course of azithromycin and notes that his chest pain is now completely resolved. He has no dyspnea with exertion or cough. Otherwise tolerated initial Durvalumab dose well--few loose stools the evening of his dose but no anny diarrhea, no skin rashes, and laboratories are stable. He also notes that Dr. Smith recommended starting N-acetylcysteine supplementation for his immunity, however I asked him to hold this for now sincehe has only recently started durvalumab and I will research whether this is indicated with his immunotherapy. --We will continue every 2-week durvalumab to see if he has any further toxicities, then follow-up in 1 month. If well-tolerated we will change to every 4-week dosing. 09/24/2021: Bert presents with his to discuss commencing immunotherapy after completing 6 weeks of concurrent chemoradiation (last dose chemo 09/10, last radiation 09/16). Fatigue improved but he has had 3 episodes of epistaxis over the past week (longest lasting about 6-7 minutes). Improved with saline nasal spray--offered ENT eval but he wants to observe. Mild dyspnea on exertionand cough. Today we discussed immunotherapy maintenance with Durvalumab over one year (initially every 2 weeks, then every 4 weeks if well tolerated). Goal of therapy is curative. --Today we reviewed immunotherapy (checkpoint inhibitor) counseling for Durvalumab. Common toxicities were reviewed to include infusion reactions and allergic reactions, fatigue, skin rashes, visual and ocular toxicities, diarrhea, abdominal pain from pancreatitis, and abnormal thyroid, adrenal, and pituitary function. Other toxicities may include pneumonitis, sexual side effects, neurologic, hepatic and renal toxicities. The patient signed informed consent and will follow-up as directed. I will see him C2D1 durvalumab for tox check. 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 He has tolerated his treatment exceptionally well and has had very few side effects/toxicities to therapy. He reports good appetite, stable weight.Essentially has no pain and has only required 4 doses of Zofran for breakthroughnausea. He has mild GERD-like symptoms, well controlled with Prilosec. Specifically denies any issues with headaches, fever/chills, cough, shortness ofbreath, bowel/bladder problems, peripheral neuropathy, skin rash or lower extremity edema. --He will complete radiotherapy on Tuesday, September 16, 2021 and his last cycle (#6) weekly Carbo/Taxol will be given today. 08/27/2021: Here for week for follow-up of weekly carboplatin paclitaxel. Fatigue mildly increased with decreased appetite and minimal dysphagia but does not need to take additional medicine other than Tylenol for this. Otherwise no cough, dyspnea, fever, chills and no significant peripheral neuropathy. He willfollow-up in 2 weeks for chemoradiation toxicity visit with our nurse practitioner. I will then see him in 4 weeks after completion of chemoradiationand will discuss whether he gets consolidation carboplatin paclitaxel after restaging scan or continue with maintenance immunotherapy alone. 08/12/2021: Started concurrent chemoradiation with weekly Carboplatin/Paclitaxelone week ago. Tolerating well without cough, dyspnea, chest pain, bowel or bladder symptoms, or neuropathy. Will continue to follow every 2 weeks while onchemoradiation--likely candidate for one year immunotherapy with Imfinzi if response. 07/17/2021: This is a 71 yo male accompanied by his for new diagnosis of right upper lobe mass, wrapping around right mainstem bronchus, with associated mediastinal adenopathy. He apparently had right upper lobe pneumonia in 2019, no imaging since that time. He is a former smoker, prior 40 year history, quit about 18 years ago. About 1-2 months ago he had persistent nonproductive cough without hemoptysis. Increased dyspnea, but his notes he has had chronic dyspnea over the past 4 years. Slow nonquantified weight loss, decreased appetite, hoarseness, and mild right chest discomfort. CT Chest imaging at [facility] on 06/23/2021 showed a large lobulated mass of the superior segment of the right upper lobe extending to the hilum. There appears to be invasion of themass into the right mainstem bronchus. The mass measures approximately 5.5 x 7.6x 6.0 cm. There is a low density lesion in the liver that appears to be a cyst. 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 He does not have other significant comorbidities, prior malignancy, or known family history. We discussed that involvement of the right mainstem bronchus and mediastinum is consistent with likely Stage III lung cancer, but he needs a PET/CT to exclude liver metastases. If no distant metastatic disease on PET/CT, we will coordinate chemoradiation with weekly carboplatin/paclitaxel. I ordered PET/CT, radiation oncology consultation and reviewed informed consent for Carboplatin/Paclitaxel. I will see him the same day as Radiation Oncology consult to review PET/CT. He did sign informed consent today to expedite concurrent chemoradiation if no distant metastatic disease. We will also contact pathology to add PDL1 status--if metastatic disease, he may be a candidate for immunotherapy +/- chemotherapy. Today we reviewed chemotherapy counseling for weekly Carboplatin and Paclitaxel. Goal of therapy is curative if stage III. Common toxicities were reviewed to include infusion reactions/allergic reactions, myelosuppression, fatigue, nausea, vomiting, constipation, diarrhea, mouth sores, and alopecia. Other toxicities may include pneumonitis, neurologic, hepatic and renal toxicities. Risk of secondary malignancy due to effects of chemotherapy on bone marrow. Thepatient signed informed consent and will follow-up as directed. Summary of Therapies Summary of Therapies: 08/06/2021: Commenced concurrent chemoradiation with Carboplatin AUC 2 IV Day 1 and Paclitaxel 45mg/m2 IV Day 1 weekly x 6 cycles. He was started on concurrent chemoradiotherapy treatment and received a dose of 6000 cGy to the right upper lobe mass and mediastinal nodes (bilateral) in 30 fractions from 08/06/2021 to 09/16/2021 over 41 elapsed days. Last cycle chemotherapy: 09/10/2021 - 09/30/2021: Cycle 1, Day 1 Durvalumab 10mg/kg IV every 2 weeks immunotherapy x 1 year. After 11/11/2021 2-week dose, changed to flat dose 1500 mg IV every 4-week dosing to complete 1 year of adjuvant immunotherapy. Last dose 09/01/2022. Intake Vitals/Pain Assessment 03/08/24 09:03 Weight 120.202 kg BP 133/77 Blood Pressure Location Lt brachial Position Sitting Temp 97.2 F L Temp Source Temporal Pulse 75 Pulse Source NIBP Respiration 16 Pulse Oximetry (%) 96 Oxygen Delivery Method room air Are you having pain? No Intake Visit Reasons: follow up visit Allergies No Known Drug Allergies Allergy (Unknown, Verified 03/08/24 09:04) none - Last Reconciled 03/08/24 by Mary Ann Cole aspirin 81 mg PO DAILY carvedilol 3.125 mg PO Q12H docusate sodium (Colace) 200 mg PO QHS hydrochlorothiazide 25 mg PO DAILY 30 days losartan 25 mg PO DAILY simvastatin (Zocor) 80 mg PO DAILY Gastrointestinal Is the patient taking opioids for pain control?: No Falls Fall Precaution Measures Taken: Patient in chair Nurse's Note: Patient is here today for a 6 month follow up visit and go over labs and CT scan [facility] Medical History Medical History Kidney stone Hyperlipidemia Hypertensive heart disease Cough Shortness of breath Lung mass Surgical History Surgical History History of carpal tunnel release History of neck surgery Family History Family History Father Heart disease Mother Diabetes Hypertension Sister Cancer Father Heart disease Mother Hypertension Diabetes Sister Cancer Legacy FamHx Problem: Diagnosed with Cancer Social History Social History Smoking status: Former smoker Within the past year, how often did you have a drink containing alcohol: never AUDIT-C Alcohol total score: 0 AUDIT-C Alcohol score interpretation: A score less than 4 is consistent with normal alcohol consumption. In the past 12 months, have you used illegal drugs or prescription drugs for non-medical reasons?: No Review of Systems CONSTITUTIONAL: No significant fatigue, negative for fever or night sweats. Independent for ADLs and not requiring home oxygen. HEAD AND NECK: Negative for changes in hearing and vision. Negative for mouth ulcers, nasal congestion and nasal drainage. No recurrence of prior epistaxis. PULMONARY: October 2023 ER visit for dyspnea, noted early pneumonia but did notrequire admission. Intermittent right chest wall pain--regression of tumor withnecrosis and small infiltrate noted on CT--prior cavitary lesion within area of consolidation of right lower lobe is now resolved. Recurrent dyspnea/cough intermittent and continues to improve. He has been titrated off maintenance 10 mg prednisone prescribed by Dr. Mathews. No hoarseness or significant dyspnea on exertion. CARDIOVASCULAR: Negative for claudication and irregular heartbeat/palpitations. No edema. GASTROINTESTINAL: Negative for abdominal pain, constipation, diarrhea, nausea, or vomiting. Improved appetite and improving dysphagia/resolved odynophagia as per HPI. GENITOURINARY: Negative for dysuria and hematuria. + h/o nephrolithiasis--left kidney shows staghorn calculus on imaging but patient does not have any symptoms, primary care elected continued observation only. ENDOCRINE: Negative for cold intolerance and heat intolerance. CENTRAL NERVOUS SYSTEM: Negative for gait disturbance and headache. No history of stroke. PSYCHIATRIC: Negative for anxiety or depression. DERMATOLOGICAL: Negative for pruritus and rash. Negative for suspicious skin lesions. MUSCULOSKELETAL: Negative for back pain and bone/joint symptoms. HEMATOLOGICAL: Negative for bleeding and easy bruising. Negative for history of transfusion or thromboembolic disease ALLERGY: Negative for environmental allergies and food allergies. Physical Exam EXAM CONSTITUTIONAL: The patient is in no acute distress. HEAD / FACE: Normocephalic; atraumatic, no scleral icterus. EYES: Pupils are equal and reactive to light. Conjunctivae and lids are benign in appearance. Ocular movement intact. EARS: Hearing grossly intact. NOSE / MOUTH / THROAT: Nose, mouth, tongue and oropharynx are benign in appearance. No signs of inflammation. NECK / THYROID: Neck is supple. Thyroid is symmetrical, without thyromegaly, masses or palpable nodules. LYMPHATIC: No palpable cervical, supraclavicular, axillary, or inguinal adenopathy. RESPIRATORY: Normal to inspection. Lungs clear to auscultation bilaterally--prolonged expiratory phase similar to prior exams; no significant rhonchi, wheezes or rales. Nonlabored respirations CARDIOVASCULAR: Regular rate and rhythm. No murmurs, gallops, or rubs. VASCULAR: Carotid, radial, femoral and pedal pulses present bilaterally. No bruits. ABDOMEN: Bowel sounds normoactive. Soft, nontender and non-distended. No hepatosplenomegaly. No masses. INTEGUMENTARY: The skin is unremarkable. No rashes. No suspicious lesions MUSCULOSKELETAL: Normal musculature, no joint deformities or abnormalities, normal range of motion for all four extremities. EXTREMITIES: No edema, cyanosis or clubbing. NEUROLOGICAL: Alert and oriented. Cranial nerves intact. No gross motor or sensory deficits. Ambulates independently. PSYCHIATRIC: No anxiety or evidence of depression. Results - [facility] LAB RESULTS Corrected WBC 13.0 X10E3/uL (4.1-10.5) H 03/05/24 09:06 Hgb 13.2 g/dL (13.0-17.0) 03/05/24 09:06 Hct 39.9 % (38.8-50.0) 03/05/24 09:06 MCV 84.7 fl (83.5-101) 03/05/24 09:06 RDW 15.7 % (12.0-14.8) H 03/05/24 09:06 Plt Count 502 x10E3/uL (150-450) H 03/05/24 09:06 Sodium 138 mmol/L (136-145) 03/05/24 09:06 Potassium 3.9 mmol/L (3.5-5.1) 03/05/24 09:06 BUN 15 mg/dL (7-25) 03/05/24 09:06 Creatinine 1.09 mg/dL (0.70-1.30) 03/05/24 09:06 Glucose 117 mg/dL (70-100) H 03/05/24 09:06 Est GFR (CKD-EPI) > 60.0 mL/Min 03/05/24 09:06 Calcium 10.0 mg/dL (8.6-10.3) 03/05/24 09:06 Total Bilirubin 0.3 mg/dl (0.3-1.0) 03/05/24 09:06 AST 18 U/L (13-39) 03/05/24 09:06 ALT 20 U/L (7-52) 03/05/24 09:06 Alkaline Phosphatase 58 U/L (34-104) 03/05/24 09:06 Total Protein 8.0 gm/dL (6.4-8.9) 03/05/24 09:06 Albumin 4.1 gm/dL (3.5-5.7) 03/05/24 09:06 RADIOLOGY/IMAGING RESULTS CT Chest with contrast TECHNIQUE: Axial imaging [...] adenopathy. No pneumoperitoneum. No mediastinal hematoma. PULMONARY PAU: No hilar mass or adenopathy is seen. [...] dictated by: Joesph Cleary M.D.03/05/2024 1:50 PM Dictated By: Natacha Hess MD DD/ [id number] Signed By: <Electronically signed by MD Natacha Hess> 03/08/24 0922 [facility] Work Phone: Progress note Author Natacha Hess [facility] Note Date/Time September 27, 2024 1:39pm [facility] [place] [place] [address] [facility] Center Note Signed Patient: Bert Yeung MR#: [id number] : 1950 Acct:[id number] Age/Sex: 73 / M Type: DEP AMB Date of Service: 09/27/24 Copies to: Howie Smith DO~ Assessment & Plan A/P (1) Encounter for chemotherapy management: Plan: Initial diagnosis July 2021: No distant metastatic disease on PET/CT for staging (bilateral mediastinal and subcarinal adenopathy noted). Concurrent chemoradiation commenced 08/06/2021--Carboplatin AUC 2 IV and Paclitaxel 45mg/m2 IV weekly x 6-7 weeks. Tolerated well. He completed Cycle 6 weekly Carboplatin/Paclitaxel therapy 09/10/2021 and radiotherapy complete on 09/16/2021. Cycle 1 day 1 09/30/2021 durvalumab 10mg/kg IV every 2 weeks immunotherapy as noted above. Changed to flat dose durvalumab 1500 milligrams IV every 4 weeks with 11/23/2021 dose. 08/04/2022: Continue durvalumab 1500mg IV every 4 weeks in addition to Medrol Dosepak day after each infusion given improvement of pneumonitis symptoms. End of 1 year of therapy 09/01/202208/2024: Follow-up of 6-month restaging scans and review of symptoms. Review images and reports over total 45-minute visit. 09/27/2024: Progression of disease on PET/CT, reviewed and signed informed consent for docetaxel 75 mg IV day 1 with ramucirumab 10 mg/kg IV day 1 every 3 weeks for total of 6 cycles followed by ramucirumab maintenance if response. Commence therapy within the next week. (2) Malignant neoplasm of overlapping sites of right bronchus and lung: Plan: Stage IIIB right upper lobe (overlapping sites involving right mainstem bronchus). No distant metastatic disease on initial PET/CT for staging. --09/08/2023: Now 2 years from diagnosis with no recurrence and stable right upper lobe bronchiectasis on restaging scans. We will extend surveillance follow-up to every 6 months. 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 No distant metastatic disease on PET/CT, therefore we coordinated chemoradiation with weekly carboplatin/paclitaxel. He commenced weekly Carboplatin/Paclitaxel with radiation on 08/06/2021 and today he will be receiving #6 Carboplatin/Paclitaxel and is scheduled to completed radiation therapy on 09/16/2021. 08/12/2021: No toxicities other than mild increase in creatinine. 08/27/2021: Grade 1 odynophagia with decreased appetite. Added sucralfate slurry 1 g every 6 hours as needed for remainder of chemoradiation. 09/10/2021: Grade 1 fatigue; otherwise no significant toxicities to chemotherapy; weight is stable; stable anemia. Normal electrolytes. Minimal nausea and no significant pain other than some acid reflux like symptoms; well controlled with Prilosec. --Patient completed Cycle 6 weekly Carboplatin/Paclitaxel therapy (09/10/2021) and radiotherapy to complete on 09/16/2021. ----- 09/24/2021: Reviewed informed consent for Durvalumab maintenance therapy 10mg/kg IV every 2 weeks x 1 year (ok to change to monthly therapy if well tolerated). 10/14/2021: Patient was sent to ER for right chest wall pain on 10/07 following first durvalumab dose 09/30/2021. Noted to have regression of prior right middle lobe lesion and adenopathy with small adjacent infiltrate (this may be postradiation change but patient was placed on antibiotics). His pain has now completely resolved with no significant cough. Otherwise tolerating immunotherapy well. We will continue him on every 2-week dosing until receivingwhether he has recurrent chest discomfort or symptoms on durvalumab. Next follow-up with me in 4 weeks for toxicity check on immunotherapy. We will not repeat his chest CT since this was just performed in emergency department. 01/22/2022: Patient is here for 3-month follow-up on durvalumab maintenance therapy. He has had recurrent episodes of chest wall pain and dyspnea, previouslytreated with antibiotics and subsequent steroids. He notes that his symptoms tend to worsen for about 1 to 2 weeks following his immunotherapy, usually beginning 2 to 3 days after therapy. I will give him a brief course of Medrol Dosepak with each cycle and he will have reassessment with nurse practitioner for toxicity visit next week to see if this prevents his cough and dyspnea symptoms. We reviewed his restaging CT chest which shows reduction in size of his cavitary lesion in the right hilum from 6.5 to 5.2 cm in greatest diameter. There are evolving postradiation changes consistent with his pneumonitis and interval development of trace right-sided pleural effusion. Next follow-up withme will be in [address] chest at that time, although he may follow-up sooner after his [employer] visit if he is having persistent pneumonitis. 02/17/2022: He has done very well with the Medrol Dosepak after Durvalumab infusion, and denies chest pain, cough or dyspnea at rest- overall near resolution of symptoms. We will continue with this plan and he will follow-up with Dr. Hess in [address], labs. He has no questions today and isin agreement with this plan. 05/05/2022: No new symptoms--stable dyspnea/cough and improved right chest discomfort with Medrol dose pack after each cycle. Restaging CT with decreasingsoft tissue component within cavitary lesion. Some surrounding ground glass opacities consistent with known pneumonitis in prior radiation field. Followup [address] Chest. Continue Medrol dose pack after each cycle. 08/04/2022: Bert notes that since he saw Dr. Ann last month his breathing hasbeen relatively stable. He was placed on tapering doses of steroids which will be Repeated monthly until the end of immunotherapy. Yesterday he had a prolonged coughing episode that has resolved and he will continue on current dose of prednisone 30 mg daily until his next scheduled step down to [address] Ann did not note any benefit from inhaled bronchodilators or steroids but did recommend systemic steroids. The patient's most recent CT scanshowed resolution of his prior cavitary lesion and overall mild regression of consolidation in the right mid to lower lung joiner. Otherwise no new nodules. The patient will receive second to last dose of durvalumab today. Last dose 1 year of maintenance durvalumab will be 09/01/2022. I will schedule restaging CT chest and follow-up with me in 3 months for survivorship visit. Hemay return sooner if new symptoms arise. Mod complexity visit over 35 minutes to review restaging scans. 11/04/2022: Stable intermittent dyspnea and cough on low-dose prednisone 20 mg daily followed by Dr. Ann who sees him in mid November. No residual symptoms concerning for immunotherapy related toxicity other than pneumonitis noted below. CT scan shows stable postradiation changes of right upper lobe and bilateral perihilar areas. No areas concerning for metastatic disease. His lastdose of durvalumab was 09/01/2022. Next follow-up with restaging CT chest with contrast and labs including CBC, CMP, TSH, and free T4 in January 2023 but he may return sooner if new symptoms arise concerning for recurrence. Okay for him to see nurse practitioner and review survivorship plan at that time. Moderate complexity 35-minute follow-up. 02/03/2023: Cough and dyspnea are slowly improving since slow titration of prednisone, now 5 mg daily. Postradiation changes but no progression on chest CT. Continue every 3-month surveillance. Low complexity follow-up 25 minutes. 05/05/2023: Cough and dyspnea stable although now maintaining prednisone 10 mg daily, following with Dr. Mathews. Postradiation changes without progression on chest CT but persistent volume loss and small right pleural effusion. Incidental note of left kidney staghorn calculus which is asymptomatic. Defer evaluation of this and mild hypokalemia to primary care. Next follow-up with chest CT with contrast will be deferred to 4 months and I will review symptoms, exam, and results of chest CT at that time. Low complexity follow-up 25 minutes. 09/08/2023: Patient has stable intermittent cough and dyspnea but no recent infections. Has been titrated off maintenance prednisone and chest CT was reviewed showing postradiation changes without new nodules or progression of known infiltrates. He reviewed the staghorn calculus with primary care who is decided to continue surveillance only. Next follow-up with CT chest with contrast is deferred to 6 months but he may return sooner if new issues arise. Low complexity follow-up 25 minutes. 03/08/2024: He still has intermittent right-sided chest pain but cough and dyspnea have improved. Mainly exacerbated by windy conditions but no limitations of activities. Chest CT was reviewed and is stable and we will continue monitoring every 6 months. No nodules suggestive of recurrence. He may return sooner if new issues arise. Moderate complexity 30-minute follow-up. 09/12/2024: No progression of pulmonary symptoms but most recent CT scan shows some mild increase of residual mass concerning for possible progression. He will be sent for PET/CT for further evaluation and if FDG avidity noted we will set up diagnostic bronchoscopy. Patient is in agreement with this plan over this high complexity 45-minute follow-up for review of images and reports in thecoordinate PET/CT. 09/27/2024: No progression of pulmonary symptoms but PET/CT confirms peripheral FDG enhancement with max SUV 9.5 with right supraclavicular adenopathy, hilar and mediastinal adenopathy. This appears most consistent with recurrence of lung carcinoma and due to the location of the necrotic mass and adenopathy this would be challenging for rebiopsy. Since he had poor tolerance of prior durvalumab with immunotherapy related pneumonitis, we decided to proceed with second line therapy with docetaxel 75 mg/m? IV day 1 with ramucirumab 10 mg/kg day 1 for 6 cycles, then ramucirumab maintenance of response. We reviewed images and reports of his PET/CT and discussed informed consent. Next follow-upwith CBC and CMP for toxicity visit 1 week after starting docetaxel with Cyramzatherapy. High complexity visit over 45 minutes with additional G2212 complexityof care for preparation of new chemotherapy orders and to review consent. He (3) Drug-induced pneumonitis: Plan: Recurrent pneumonitis as addressed above. Medrol Dosepak for 1 week following next durvalumab and reassessment with next practitioner to see if this alleviates his symptoms. 02/17/2022: see above. Near resolution of symptoms with addition of Medrol Dosepak. He is back to his baseline dyspnea on exertion only with increased activity 05/05/2022: Intermittent worsening of cough and dyspnea between cycles but much improved with medrol dose pack each cycle. 08/04/2022: I reviewed progress note from consultation with pulmonary medicine Dr. Ann who recommends recurrent courses of prednisone 40 mg daily for 7 days, 30 mg daily for 7 days, 20 mg daily for 7 days, then 10 mg daily for 7 days. This will be repeated once monthly until pneumonitis improved off immunotherapy within the next 2 months. He will have follow-up appointment withDr. Ann next month. 11/04/2022: Patient does not feel that his cough and dyspnea is improved since end of durvalumab with last dose 09/01/2022, however he appears to be less symptomatic on exam today. He has maintained on prednisone 10 mg daily until follow-up with Dr. Ann next month. Imaging shows stable postradiation changes, likely exacerbated by prior immunotherapy. We will continue to follow with every 3-month scans. 02/03/2023: Cough and dyspnea are slowly improving since slow titration of prednisone, now 5 mg daily. Postradiation changes but no progression on chest CT. Continue follow-up with Dr. Ann as directed. 05/05/2023: Patient notes most recent follow-up with with Dr. Mathews and his current prednisone dose is 10 mg daily. Still no progression on chest CT but persistent postradiation changes and right lung volume loss. Continue follow-upwith pulmonary medicine as scheduled. 09/08/2023, 03/08/2024, 09/12/2024: No new symptoms. Titrated off prednisone fornow and will continue follow-up with Dr. Mathews as needed. 09/27/2024: Progression of disease on PET/CT with no new symptoms. Will utilizea noncheckpoint inhibitor regimen for recurrence of disease due to poor tolerance of durvalumab. Will continue to follow pulmonary status closely. (4) Staghorn renal calculus: Plan: Left kidney staghorn calculus noted on April 2023 imaging--partial imaging on current CT but no indication for intervention at this time. Patient does not have any symptoms but has had a history of nephrolithiasis. Continue surveillance with primary care Dr. Smith. (5) Encounter for coordination of complex care: Plan: Review of PET/CT and preparation of chemotherapy orders G2212. Medications: New ondansetron HCl 8 mg PO Q8HR PRN 30 tabs 3RF nausea and vomiting Patient Instructions: Previous treatment patient (no chemo class) Follow up with Dr Hess one week after starting tx with CBC CMP CHEMO PLAN Treatment Plan Durvalumab 1500mg Q28D [Stopped Nov 04, 2022] No Active Chemotherapy History of Present Illness HPI 09/27/2024: Néstor is here for 2-week follow-up to go over PET/CT and discuss further therapy due to results showing progression of disease. He has no interval change of his COPD with intermittent cough. PET/CT images and reports were reviewed with the patient and showing peripheral FDG avid mass in the right upper lobe with hilar, mediastinal, and right supraclavicular adenopathy consistent with progression of disease. No distant metastases noted and there is nonspecific focus of uptake in the left gluteal muscle SUV 5.2 that is indeterminate. The location of the mass would be challenging to biopsy and increased SUV levels within the right upper lobe are most consistent with recurrence of disease. 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 Goal of therapy is palliation of symptoms and prolongation of life but not curative. Hewill follow- up with me cycle 1 week 2 for toxicity visit. High complexity 45-minute visit to review images and reports of PET/CT and counseling for docetaxeland Cyramza therapy. G2212 increased care complexity for preparation of orders. Today we reviewed chemotherapy counseling for docetaxel and Cyramza. Common toxicities were reviewed to include allergic reaction/infusion reactions, rashes, myelosuppression, fatigue, nausea, vomiting, constipation, diarrhea, mouth sores, and alopecia. Other toxicities may include hypertension, impaired wound healing, pneumonitis, neurologic, hepatic and renal toxicities. The patient signed informed consent and will follow-up as directed. 09/12/2024: Bert presents for 6-month followup for prior stage III lung cancerdiagnosed 3 years ago. He has unchanged right sided upper chest pain that resolves with deep breaths and he has been followed by Dr. Valencia of pulmonary medicine. No change in his current management of COPD and pneumonitis. No recent infections or hospital admissions. No urinary issues with asymptomatic left kidney staghorn calculus. Laboratories show normal CBC, normal renal and hepatic function. I reviewed Chest CT from 09/10/2024 imaging and report showing right upper lobe residual mass measuring 4.1 x 4.8 x 3.9 cm once measuring 3.1 x 3.6 x 3.0 cm in area of prior radiation with associated bronchiectasis. Indeterminate for progression of disease. I recommended PET/CTfor further evaluation and if there is any FDG avidity we will coordinate repeatbronchoscopy to determine if recurrence. He will follow-up with me after PET/CTin the next 1 to 2 weeks to review results and further plan. High complexity 45minute follow-up for review of images and reports and to set up PET/CT for further evaluation. 03/08/2024: Bert is here for now 6-month follow-up of his stage III lung cancer status post chemoradiation and adjuvant durvalumab. He has occasional right- sided sharp pains that resolved with deep breaths, likely related to his immunotherapy related pneumonitis. He was seen in the ER in October for respiratory infection but did not have admission and otherwise has not had any change of his chronic pulmonary management. We reviewed his chest CT that continues to show posttreatment changes of the lower right upper lobe with bronchiectasis and stable slight pleural effusion. No suspicious pulmonary nodules for recurrence. In the absence of new symptoms he may continue follow-up visits and restaging chest CT every 6 months. He will return sooner if new issues arise. Moderate complexity 30-minute follow-up for review of images and reports restaging CT and history/exam 09/08/2023: Bert is here for 4-month follow-up with CT. On last imaging, he had an asymptomatic left kidney staghorn calculus and the decision was to continue observation only. 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 Stable dyspnea from prior visits. No recent admissions or antibiotics for worsening cough or dyspnea. CBC now with normal white blood cell count, unremarkable chemistry profile. Restaging CT chest from 08/17/2023 images and reports reviewed showing posttreatment changes of both lungs most prominently in the right upper lobe grossly similar to prior treatment associated bronchiectasis with associated small right-sided loculated pleural effusion. No new areas of consolidation or suspicious pulmonary nodules. Sincethe patient is regularly followed by pulmonary medicine and has remained clinically stable, we will extend his restaging CTs and exams to 6 months. He will return sooner if new issues arise. Low complexity 25-minute follow-up for surveillance of lung cancer symptoms and imaging. 05/05/2023: 3-month follow-up with review of CT of chest. Now nearly 9 months from completion of adjuvant durvalumab with prednisone now at 10 mg daily, followed by Dr. Mathews. Dyspnea is stable from prior visits but no further ERvisits or admissions. No recent infections or antibiotics. Laboratories unremarkable with normal hemoglobin, mild hypokalemia that he will follow-up with his primary care physician. Imaging is remarkable for stable posttreatmentchanges of the right upper lobe with volume loss and a small loculated right pleural effusion but no new consolidations suggestive of recurrence. There weresubcentimeter low-attenuation lesions near the gallbladder fossa which are unchanged from prior study and he is noted to have a staghorn type calculus in the left kidney without obstruction. I will have him discuss with primary care whether he should see urology for further evaluation. The patient denies any flank pain, urinary infections, or change in frequency. -- Since symptoms are stable and imaging has not shown any recurrence, I recommend extending his CT and follow-up visits to every 4 months. At his next follow-up in August he will be 1 year from end of adjuvant durvalumab. Patientis in agreement with this plan over this low complexity 25-minute follow-up for surveillance of lung cancer symptoms and imaging. 02/03/2023: 3-month follow-up and review of CT of chest. He is now nearly 6 months from completion of adjuvant durvalumab. His prednisone is titrated down to 5 mg daily and cough is intermittent. Still has dyspnea with moderate activity. No further ER visits or admissions. No infections, nausea, vomiting,diarrhea, and no abnormalities on immunotherapy labs. CT of chest shows no new infiltrate. Stable 13 mm focus in the right hepatic lobe which is unchanged from original CTs prior to starting therapy in 2020. We will continue to followevery [address], but should not require immunotherapy labs except annual TSH/free T4. He may return sooner if signs or symptoms of recurrence. Low complexity 25-minute follow-up for surveillance lung cancer. 11/04/2022: Fer is here for 3-month follow-up and review of CT chest after completing last dose 09/01/2022 of 1 year adjuvant durvalumab after concurrent chemoradiation. His dyspnea and cough recur intermittently and he remains on low-dose prednisone 10 mg daily with follow-up planned with Dr. Ann in mid November. He has not had any further ER visits or evidence of infection. No nausea/vomiting, diarrhea, bone pain, and immunotherapy labs normal. We will recheck his thyroid function tests with CBC and CMP at his 3-month follow-up. We reviewed images and reports of CT scans of chest from April, July, and most recent 11/01/2022 restaging scans. He has stable soft tissue prominence inthe right hilum and to a lesser extent the left hilum. Airspace opacities in the right perihilar distribution of the right upper lobe with a lesser extent inthe left perihilar region is unchanged compared to prior exam. Stable 13 mm focus of hypoattenuation in right hepatic lobe favoring cyst. 1.6 cm stone in theleft renal pelvis. No obvious bony metastatic lesions. The patient denies any back pain or dysuria/hematuria. We will plan to follow-up exam, labs, and imaging in 3 months. He may return sooner if signs or symptoms of recurrence. Moderate complexity 35-minute follow-up visit for review of symptoms, labs, and images after completing 1 year of durvalumab maintenance therapy. 08/04/2022: Bert is here for follow-up on durvalumab maintenance therapy. He has 2 more doses 1 today and 1 in 4 weeks then will complete his 1 year maintenance therapy. He was seen by Dr. Ann of pulmonary medicine who has prescribed serial prednisone tapers for pneumonitis (40 mg x 1 week, 30 mg x 1 week, 20 mg x 1 week, 10 mg x 1 week and repeat each month). His dyspnea and cough has somewhat stabilized since the steroid courses, although he had a coughing fit yesterday that lasted about 3 hours. He did not seek any furtherevaluation in the emergency room and this has now resolved. He is currently on 30 mg daily of his prednisone without any significant cough or dyspnea greater than baseline. Otherwise no immunotherapy related toxicities such as rash or diarrhea. We reviewed his restaging CT chest from 08/02/2022 that shows persistent consolidative changes in the right upper lobe with loculated pleural effusion that is unchanged. Prior cavitary component has essentially resolved since prior study with stable scarring in the left hilar region. No new pulmonary nodules are noted. Labs show mild leukocytosis related to his steroids but otherwise stable hemoglobin and normal platelet count. Renal and hepatic function normal and no abnormalities of thyroid or adrenal function. Hewill continue 2 further cycles of therapy with durvalumab then stop. Follow-up in 3 months with contrast chest CT. He may return sooner as needed. Moderate complexity 35-minute follow-up visit for review of images and reports of CT and discussion of further therapy. 05/05/2022: Improvement of prior right chest wall pain with use of Medrol Dosepaks after each cycle of durvalumab. Stable dyspnea and cough. No other immunotherapy related toxicities other than pneumonitis. Restaging CT Chest reviewed--primary lesion similar size but more cavitary with surrounding ground glass opacities in prior radiation field. Will continue current durvalumab maintenance. Next f/u 3 months with contrast chest CT. End of therapy will be 08/2022 (sooner if unable to tolerate due to pneumonitis--tolerable with brief steroid course each cycle. 02/17/2022: Bert presents today to evaluate symptoms. He previously noted significant dyspnea and cough with his durvalumab, so he was given a Medrol Dosepak to start 1 day after durvalumab treatment. He states after this cycle, he noticed a significant improvement in his symptoms with initiation of the dosepak and denies any dyspnea at rest or around the house after treatment. He still has dyspnea on exertion when he's more active, but this is mild now and more his baseline. He continues to deny other symptoms such as rash, abdominal pain or diarrhea. Labs are reviewed and remain stable. We will continue with durvalumab + medrol dosepak every 4 weeks, and will plan for follow-up in [address] Hess. He will call sooner if his symptoms worsen or new symptoms develop. 01/21/2022: Bert presents for durvalumab immunotherapy today. He notes that with prior cycles he has had recurrent dyspnea and cough that is treated with steroids with some improvement about 1 week prior to his next cycle. He now notes that his shortness of breath is at baseline. He has otherwise not had anyother symptoms such as diarrhea, skin rash, or abdominal pain and his labs remained stable. 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 We discussed 1 more cycle durvalumab and I will give him a Medrol Dosepak to start 1 day after his durvalumab dose to see if we can preempt his inflammatory reaction. If he does not tolerate his durvalumab well we may consider stopping maintenance immunotherapy early. He is in agreement with thisplan. Next toxicity visit within 1 month. 12/23/2021: Bert presents today with his for follow-up for his lung cancer. He states he is feeling better finally today after the past 2 weeks with pneumonia. He finished his antibiotic yesterday. He is still short of breath, but this is somewhat improved. He continues with cough but denies chest pain, fever or chills. He is tolerating durvalumab well- no diarrhea, skin rash or abdominal pain. Labs reviewed and ok for treatment. We will have him get a chestXR prior to treatment today and will plan his re-staging CT scan for 2-3 weeks with follow-up after. He will continue monthly durvalumab unless he progresses, has a pneumonitis or other new symptoms of toxicity arise. 11/11/2021: Bert presents with his for follow-up. His severe right-sided chest pain and dyspnea has now completely resolved from last visit. He has not had any suggestive toxicities from durvalumab--no diarrhea, skin rashes, or recurrent dyspnea. He has returned to normal performance status and denies any fatigue. We reviewed his laboratories showing no immunotherapy related endocrine toxicities. Since he is now at normal baseline, I will give his 2-week dosing of durvalumab today then change to every 4-week dosing. His next follow-up with me will be in 6 weeks and he will have restaging CT chest in lateFebruary unless new symptoms arise. 10/14/2021: Bert was sent to ER 1 week ago (10/07/2021) after presenting with severe right-sided chest pain for about 1 week. He did not report worsening with inspiration but was worse with eating. Chest CT showed regression of priorright middle lobe tumor with internal necrosis and regression of prior adenopathy. There was an infiltrate posterior to his mass and no evidence of pulmonary embolism. He completed a course of azithromycin and notes that his chest pain is now completely resolved. He has no dyspnea with exertion or cough. Otherwise tolerated initial Durvalumab dose well--few loose stools the evening of his dose but no anny diarrhea, no skin rashes, and laboratories are stable. He also notes that Dr. Smith recommended starting N-acetylcysteine supplementation for his immunity, however I asked him to hold this for now sincehe has only recently started durvalumab and I will research whether this is indicated with his immunotherapy. --We will continue every 2-week durvalumab to see if he has any further toxicities, then follow-up in 1 month. If well-tolerated we will change to every 4-week dosing. 09/24/2021: Bert presents with his to discuss commencing immunotherapy after completing 6 weeks of concurrent chemoradiation (last dose chemo 09/10, last radiation 09/16). Fatigue improved but he has had 3 episodes of epistaxis over the past week (longest lasting about 6-7 minutes). Improved with saline nasal spray--offered ENT eval but he wants to observe. Mild dyspnea on exertionand cough. Today we discussed immunotherapy maintenance with Durvalumab over one year (initially every 2 weeks, then every 4 weeks if well tolerated). Goal of therapy is curative. --Today we reviewed immunotherapy (checkpoint inhibitor) counseling for Durvalumab. Common toxicities were reviewed to include infusion reactions and allergic reactions, fatigue, skin rashes, visual and ocular toxicities, diarrhea, abdominal pain from pancreatitis, and abnormal thyroid, adrenal, and pituitary function. Other toxicities may include pneumonitis, sexual side effects, neurologic, hepatic and renal toxicities. The patient signed informed consent and will follow-up as directed. I will see him C2D1 durvalumab for tox check. 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 He has tolerated his treatment exceptionally well and has had very few side effects/toxicities to therapy. He reports good appetite, stable weight.Essentially has no pain and has only required 4 doses of Zofran for breakthroughnausea. He has mild GERD-like symptoms, well controlled with Prilosec. Specifically denies any issues with headaches, fever/chills, cough, shortness ofbreath, bowel/bladder problems, peripheral neuropathy, skin rash or lower extremity edema. --He will complete radiotherapy on Tuesday, September 16, 2021 and his last cycle (#6) weekly Carbo/Taxol will be given today. 08/27/2021: Here for week for follow-up of weekly carboplatin paclitaxel. Fatigue mildly increased with decreased appetite and minimal dysphagia but does not need to take additional medicine other than Tylenol for this. Otherwise no cough, dyspnea, fever, chills and no significant peripheral neuropathy. He willfollow-up in 2 weeks for chemoradiation toxicity visit with our nurse practitioner. I will then see him in 4 weeks after completion of chemoradiationand will discuss whether he gets consolidation carboplatin paclitaxel after restaging scan or continue with maintenance immunotherapy alone. 08/12/2021: Started concurrent chemoradiation with weekly Carboplatin/Paclitaxelone week ago. Tolerating well without cough, dyspnea, chest pain, bowel or bladder symptoms, or neuropathy. Will continue to follow every 2 weeks while onchemoradiation--likely candidate for one year immunotherapy with Imfinzi if response. 07/17/2021: This is a now 73 yo male accompanied by his for new diagnosis of right upper lobe mass, wrapping around right mainstem bronchus, with associated mediastinal adenopathy. He apparently had right upper lobe pneumonia in 2019, no imaging since that time. He is a former smoker, prior 40 year history, quit about 18 years ago. About 1-2 months ago he had persistent nonproductive cough without hemoptysis. Increased dyspnea, but his notes he has had chronic dyspnea over the past 4 years. Slow nonquantified weight loss, decreased appetite, hoarseness, and mild right chest discomfort. CT Chest imaging at [facility] on [facility]/23/2021 showed a large lobulated mass of the superior segment of the right upper lobe extending to the hilum. There appears to be invasion of the mass into the right mainstem bronchus. The mass measures approximately 5.5 x 7.6 x 6.0 cm. There is a low density lesion in the liver that appears to be a cyst. 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 He does not have other significant comorbidities, prior malignancy, or known family history. We discussed that involvement of the right mainstem bronchus and mediastinum is consistent with likely Stage III lung cancer, but he needs a PET/CT to exclude liver metastases. If no distant metastatic disease on PET/CT, we will coordinate chemoradiation with weekly carboplatin/paclitaxel. I ordered PET/CT, radiation oncology consultation and reviewed informed consent for Carboplatin/Paclitaxel. I will see him the same day as Radiation Oncology consult to review PET/CT. He did sign informed consent today to expedite concurrent chemoradiation if no distant metastatic disease. We will also contact pathology to add PDL1 status--if metastatic disease, he may be a candidate for immunotherapy +/- chemotherapy. Today we reviewed chemotherapy counseling for weekly Carboplatin and Paclitaxel. Goal of therapy is curative if stage III. Common toxicities were reviewed to include infusion reactions/allergic reactions, myelosuppression, fatigue, nausea, vomiting, constipation, diarrhea, mouth sores, and alopecia. Other toxicities may include pneumonitis, neurologic, hepatic and renal toxicities. Risk of secondary malignancy due to effects of chemotherapy on bone marrow. Thepatient signed informed consent and will follow-up as directed. Summary of Therapies Summary of Therapies: 08/06/2021: Commenced concurrent chemoradiation with Carboplatin AUC 2 IV Day 1 and Paclitaxel 45mg/m2 IV Day 1 weekly x 6 cycles. He was started on concurrent chemoradiotherapy treatment and received a dose of 6000 cGy to the right upper lobe mass and mediastinal nodes (bilateral) in 30 fractions from 08/06/2021 to 09/16/2021 over 41 elapsed days. Last cycle chemotherapy: 09/10/2021 - 09/30/2021: Cycle 1, Day 1 Durvalumab 10mg/kg IV every 2 weeks immunotherapy x 1 year. After 11/11/2021 2-week dose, changed to flat dose 1500 mg IV every 4-week dosing to complete 1 year of adjuvant immunotherapy. Last dose 09/01/2022. ~~~~~~~~~~~~~~~~~~~~~~~~~~~~~ 09/27/2024: Reviewed and signed informed consent for docetaxel and Cyramza at 100% dose. Likely to commence within the next week. Ramucirumab + docetaxel Day 1: Ramucirumab 10mg/kg IV + docetaxel 75mg/m2 IV. Repeat cycle every 3 weeks. Intake Vitals/Pain Assessment 09/27/24 13:02 Height 5 ft 10 in Weight 119.748 kg BMI 37.8 Body Fat % 56.37 BP 148/84 H Blood Pressure Location Lt brachial Position Sitting Temp 97.5 F L Temp Source Temporal Pulse 93 Pulse Source NIBP Respiration 16 Pulse Oximetry (%) 95 Oxygen Delivery Method room air Are you having pain? No Intake Visit Reasons: Follow Up after PET, follow up visit Accompanied by: Spouse Allergies No Known Drug Allergies Allergy (Unknown, Verified 09/27/24 13:10) none - Last Reconciled 09/27/24 by SUNNI Pfeiffer acetylcysteine (NAC) 1,200 mg PO DAILY aspirin 81 mg PO DAILY berberine chloride 750 mg PO DAILY carvedilol 3.125 mg PO Q12H dihydroberberine (Berberine ES-5) mg PO docusate sodium (Colace) 200 mg PO QHS hydrochlorothiazide 25 mg PO DAILY 30 days hydrocodone-acetaminophen 5-325 mg 1 tab PO Q6HR PRN 3 days losartan 25 mg PO DAILY simvastatin (Zocor) 80 mg PO DAILY Gastrointestinal Is the patient taking opioids for pain control?: No Falls Fall Precaution Measures Taken: Patient in chair Nurse's Note: Patient is here today for a follow up visit and go over Pet Scan. Cancer treatment education bag and all contents including [facility] My cancer treatmentguide, signs and symptoms sheet, yellow fever card, magnet, caregiver resource list, [facility] well nutrition guide, and cancer rehabilitation pamphlet provided anddiscussed with patient. Patient also provided with copy of consent, doctors business card, and clinic contact information. Printed drug information also provided and discussed with patient. All questions were answered to patient?s satisfaction and patient verbalizes understanding. [facility] Medical History Medical History Traction bronchiectasis History of tobacco abuse Drug-induced pneumonitis Staghorn renal calculus Pulmonary fibrosis Non-small cell cancer of right lung Hyperlipidemia Hypertensive heart disease Lung mass Surgical History Surgical History History of carpal tunnel release History of neck surgery Family History Family History Father Heart disease Mother Diabetes Hypertension Sister Cancer Father Heart disease Mother Hypertension Diabetes Sister Cancer Legacy FamHx Problem: Diagnosed with Cancer Social History Social History Smoking status: Former smoker What tobacco products do you use: cigarettes Smoking quit date/years: >15 years ago Within the past year, how often did you have a drink containing alcohol: never AUDIT-C Alcohol total score: 0 AUDIT-C Alcohol score interpretation: A score less than 4 is consistent with normal alcohol consumption. 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 CONSTITUTIONAL: No significant fatigue, negative for fever or night sweats. Independent for ADLs and not requiring home oxygen. HEAD AND NECK: Negative for changes in hearing and vision. Negative for mouth ulcers, nasal congestion and nasal drainage. No recurrence of prior epistaxis. PULMONARY: October 2023 ER visit for dyspnea, noted early pneumonia but did notrequire admission. Intermittent right chest wall pain--regression of tumor withnecrosis and small infiltrate noted on CT--prior cavitary lesion within area of consolidation of right lower lobe is now resolved. Recurrent dyspnea/cough intermittent and continues to improve. He has been titrated off maintenance 10 mg prednisone. No hoarseness or significant dyspnea on exertion. CARDIOVASCULAR: Negative for claudication and irregular heartbeat/palpitations. No edema. GASTROINTESTINAL: Negative for abdominal pain, constipation, diarrhea, nausea, or vomiting. Improved appetite and improving dysphagia/resolved odynophagia as per HPI. GENITOURINARY: Negative for dysuria and hematuria. + h/o nephrolithiasis--left kidney shows staghorn calculus on imaging but patient does not have any symptoms, primary care elected continued observation only. ENDOCRINE: Negative for cold intolerance and heat intolerance. CENTRAL NERVOUS SYSTEM: Negative for gait disturbance and headache. No history of stroke. PSYCHIATRIC: Negative for anxiety or depression. DERMATOLOGICAL: Negative for pruritus and rash. Negative for suspicious skin lesions. MUSCULOSKELETAL: Negative for back pain and bone/joint symptoms. HEMATOLOGICAL: Negative for bleeding and easy bruising. Negative for history of transfusion or thromboembolic disease ALLERGY: Negative for environmental allergies and food allergies. Physical Exam EXAM ECOG PS 1, Pain 0/10 CONSTITUTIONAL: The patient is in no acute distress. HEAD / FACE: Normocephalic; atraumatic, no scleral icterus. EYES: Pupils are equal and reactive to light. Conjunctivae and lids are benign in appearance. Ocular movement intact. EARS: Hearing grossly intact. Exam deferred, here for review of imaging and chemotherapy consent. See exam below from 09/12/2024. NOSE / MOUTH / THROAT: Nose, mouth, tongue and oropharynx are benign in appearance. No signs of inflammation. NECK / THYROID: Neck is supple. Thyroid is symmetrical, without thyromegaly, masses or palpable nodules. LYMPHATIC: No palpable cervical, supraclavicular, axillary, or inguinal adenopathy. RESPIRATORY: Normal to inspection. Lungs clear to auscultation bilaterally--prolonged expiratory phase similar to prior exams; no significant rhonchi, wheezes or rales. Nonlabored respirations CARDIOVASCULAR: Regular rate and rhythm. No murmurs, gallops, or rubs. VASCULAR: Carotid, radial, femoral and pedal pulses present bilaterally. No bruits. ABDOMEN: Bowel sounds normoactive. Soft, nontender and non-distended. No hepatosplenomegaly. No masses. INTEGUMENTARY: The skin is unremarkable. No rashes. No suspicious lesions MUSCULOSKELETAL: Normal musculature, no joint deformities or abnormalities, normal range of motion for all four extremities. EXTREMITIES: No edema, cyanosis or clubbing. NEUROLOGICAL: Alert and oriented. Cranial nerves intact. No gross motor or sensory deficits. Ambulates independently. PSYCHIATRIC: No anxiety or evidence of depression. Results - [facility] ([facility]) LAB RESULTS Corrected WBC 10.1 X10E3/uL (4.1-10.5) 09/10/24 09:19 Hgb 13.0 g/dL (13.0-17.0) 09/10/24 09:19 09/10/24 Hct 39.2 % (38.8-50.0) 09/10/24 09:19 09/10/24 MCV 86.1 fl (83.5-101) 09/10/24 09:19 09/10/24 RDW 15.2 % (12.0-14.8) H 09/10/24 09:19 09/10/24 Plt Count 437 x10E3/uL (150-450) 09/10/24 09:19 09/10/24 RADIOLOGY/IMAGING RESULTS PET tumor subq tx strat sb-mt 09/24/2024 [...] node in the right supraclavicular region measuring 15mm in shortest axis. There is a maximum [...] prior mass in the right upper lobe asnoted above with hilar, mediastinal, and right supraclavicular lymphadenopathy. There is a nonspecific focus of FDG accumulation within the left gluteal musculature with a maximum SUV of 5.2. Impression dictated by: Carlos Cavanaugh M.D.09/24/2024 3:50 PM Dictated By: Natacha Hess MD DD/ [id number] Signed By: <Electronically signed by MD Natacha Hess> 09/28/24 1352 [facility] Work Phone: Progress note Author Mari Diaz [facility] Note Date/Time November 19, 2024 10 :45[facility] [place] [address] Cancer Center Note Signed Patient: Bert Yeung MR#: [id number] : 1950 Acct:[id number] Age/Sex: 73 / M Type: DEP AMB Date of Service: 11/19/24 Copies to: Howie Smith DO~ Assessment & Plan A/P (1) Encounter for chemotherapy management: Plan: Initial diagnosis July 2021: No distant metastatic disease on PET/CT for staging (bilateral mediastinal and subcarinal adenopathy noted). Concurrent chemoradiation commenced 08/06/2021--Carboplatin AUC 2 IV and Paclitaxel 45mg/m2 IV weekly x 6-7 weeks. Tolerated well. He completed Cycle 6 weekly Carboplatin/Paclitaxel therapy 09/10/2021 and radiotherapy complete on 09/16/2021. Cycle 1 day 1 09/30/2021 durvalumab 10mg/kg IV every 2 weeks immunotherapy as noted above. Changed to flat dose durvalumab 1500 milligrams IV every 4 weeks with 11/23/2021 dose. 08/04/2022: Continue durvalumab 1500mg IV every 4 weeks in addition to Medrol Dosepak day after each infusion given improvement of pneumonitis symptoms. End of 1 year of therapy 09/01/202208/2024: Follow-up of 6-month restaging scans and review of symptoms. Review images and reports over total 45-minute visit. 09/27/2024: Progression of disease on PET/CT, reviewed and signed informed consent for docetaxel 75 mg/m2 IV day 1 with ramucirumab 10 mg/kg IV day 1 every3 weeks for total of 6 cycles followed by ramucirumab maintenance if response. Commence therapy within the next week. 10/17/2024: Patient received first cycle of docetaxel 75 mg/m? with ramucirumab 10 mg/kg IV day 1 every 3 weeks for first cycle on 10/09/2024. He had significant fatigue, epistaxis, and mild leukocytosis with arthralgias with growth factor support. Given his significant symptoms we are dose reducing his second cycle of docetaxel to 60 mg/m? with the same dose of ramucirumab for cycle 2 on 10/30/2024. It is also reasonable to drop his growth factor support with dose reduction. I will see him cycle 2-week 2 to review toxicities and to coordinate restaging imaging. He may return sooner if new issues arise. If he has recurrent epistaxis we may consider ENT referral. 11/08/2024: Tolerating Docetaxel now at 20% dose reduction, full dose ramucirumab with no growth factor. Persistent cough, hoarseness and intermittent epistaxis with no lesion on ENT eval (Dr. Scott). 1 week trial ofDiflucan for hoarseness and cough. Followup with [facility] C3W1 for response, restaging after first 3 cycles and f/u with pr cycle 4. Moderate complexity 35 minute followup. 11/19/2024: Tolerating Docetaxel now at 20% dose reduction, full dose ramucirumab with no growth factor. Cough and hoarseness improved since cycle #2 after Diflucan trial. Reports diarrhea after treating constipation, no concerns with electrolyte imbalance on today's cmp. cbc not yet resulted. Plan for chemo tomorrow as long as cbc is within parameters. Followup with Dr. Hess cycle [address] chest. (2) Malignant neoplasm of overlapping sites of right bronchus and lung: Plan: Stage IIIB right upper lobe (overlapping sites involving right mainstem bronchus). No distant metastatic disease on initial PET/CT for staging. --09/08/2023: Now 2 years from diagnosis with no recurrence and stable right upper lobe bronchiectasis on restaging scans. We will extend surveillance follow-up to every 6 months. 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 No distant metastatic disease on PET/CT, therefore we coordinated chemoradiation with weekly carboplatin/paclitaxel. He commenced weekly Carboplatin/Paclitaxel with radiation on 08/06/2021 and today he will be receiving #6 Carboplatin/Paclitaxel and is scheduled to completed radiation therapy on 09/16/2021. 08/12/2021: No toxicities other than mild increase in creatinine. 08/27/2021: Grade 1 odynophagia with decreased appetite. Added sucralfate slurry 1 g every 6 hours as needed for remainder of chemoradiation. 09/10/2021: Grade 1 fatigue; otherwise no significant toxicities to chemotherapy; weight is stable; stable anemia. Normal electrolytes. Minimal nausea and no significant pain other than some acid reflux like symptoms; well controlled with Prilosec. --Patient completed Cycle 6 weekly Carboplatin/Paclitaxel therapy (09/10/2021) and radiotherapy to complete on 09/16/2021. 09/24/2021: Reviewed informed consent for Durvalumab maintenance therapy 10mg/kg IV every 2 weeks x 1 year (ok to change to monthly therapy if well tolerated). 10/14/2021: Patient was sent to ER for right chest wall pain on 10/07 following first durvalumab dose 09/30/2021. Noted to have regression of prior right middle lobe lesion and adenopathy with small adjacent infiltrate (this may be postradiation change but patient was placed on antibiotics). His pain has now completely resolved with no significant cough. Otherwise tolerating immunotherapy well. We will continue him on every 2-week dosing until receivingwhether he has recurrent chest discomfort or symptoms on durvalumab. Next follow-up with me in 4 weeks for toxicity check on immunotherapy. We will not repeat his chest CT since this was just performed in emergency department. ~~~~~~~~~~~~~~~~~~~~~~~~ Last dose 1 year of maintenance durvalumab 09/01/2022. I will schedule restaging CT chest and follow-up with me in 3 months for survivorship visit. Hemay return sooner if new symptoms arise. Mod complexity visit over 35 minutes to review restaging scans. 11/04/2022: Stable intermittent dyspnea and cough on low-dose prednisone 20 mg daily followed by Dr. Ann who sees him in mid November. No residual symptoms concerning for immunotherapy related toxicity other than pneumonitis noted below. CT scan shows stable postradiation changes of right upper lobe and bilateral perihilar areas. No areas concerning for metastatic disease. His last dose of durvalumab was 09/01/2022. Next follow-up with restaging CT chest with contrast and labs including CBC, CMP, TSH, and free T4 in January 2023 but hemay return sooner if new symptoms arise concerning for recurrence. Okay for himto see nurse practitioner and review survivorship plan at that time. Moderate complexity 35-minute follow-up. 02/03/2023: Cough and dyspnea are slowly improving since slow titration of prednisone, now 5 mg daily. Postradiation changes but no progression on chest CT. Continue every 3-month surveillance. Low complexity follow-up 25 minutes. 05/05/2023: Cough and dyspnea stable although now maintaining prednisone 10 mg daily, following with Dr. Mathews. Postradiation changes without progression on chest CT but persistent volume loss and small right pleural effusion. Incidental note of left kidney staghorn calculus which is asymptomatic. Defer evaluation of this and mild hypokalemia to primary care. Next follow-up with chest CT with contrast will be deferred to 4 months and I will review symptoms, exam, and results of chest CT at that time. Low complexity follow-up 25 minutes. 09/08/2023: Patient has stable intermittent cough and dyspnea but no recent infections. Has been titrated off maintenance prednisone and chest CT was reviewed showing postradiation changes without new nodules or progression of known infiltrates. He reviewed the staghorn calculus with primary care who is decided to continue surveillance only. Next follow-up with CT chest with contrast is deferred to 6 months but he may return sooner if new issues arise. Low complexity follow-up 25 minutes. 03/08/2024: He still has intermittent right-sided chest pain but cough and dyspnea have improved. Mainly exacerbated by windy conditions but no limitations of activities. Chest CT was reviewed and is stable and we will continue monitoring every 6 months. No nodules suggestive of recurrence. He may return sooner if new issues arise. Moderate complexity 30-minute follow-up. 09/12/2024: No progression of pulmonary symptoms but most recent CT scan shows some mild increase of residual mass concerning for possible progression. He will be sent for PET/CT for further evaluation and if FDG avidity noted we will set up diagnostic bronchoscopy. Patient is in agreement with this plan over this high complexity 45-minute follow-up for review of images and reports in thecoordinate PET/CT. 09/27/2024: No progression of pulmonary symptoms but PET/CT confirms peripheral FDG enhancement with max SUV 9.5 with right supraclavicular adenopathy, hilar and mediastinal adenopathy. This appears most consistent with recurrence of lung carcinoma and due to the location of the necrotic mass and adenopathy this would be challenging for rebiopsy. Since he had poor tolerance of prior durvalumab with immunotherapy related pneumonitis, we decided to proceed with second line therapy with docetaxel 75 mg/m? IV day 1 with ramucirumab 10 mg/kg day 1 for 6 cycles, then ramucirumab maintenance of response. We reviewed images and reports of his PET/CT and discussed informed consent. Next follow-upwith CBC and CMP for toxicity visit 1 week after starting docetaxel with Cyramzatherapy. High complexity visit over 45 minutes with additional G2212 complexityof care for preparation of new chemotherapy orders and to review consent. 10/17/2024: As noted above patient had increased fatigue, dyspnea with exertion, and epistaxis with his first cycle of docetaxel Cyramza. Dose reduction of docetaxel by 20% will be planned for cycle 2 on 10/30/2024. Continue full dose Cyramza. Restaging after 3 cycles. Moderate complexity 35-minute toxicity follow-up. 11/08/2024: Improved fatigue and dyspnea on exertion with docetaxel dose reduction cycle 2. Still intermittent epistaxis after no lesion seen on nasopharyngoscopy. 1 week fluconazole 100mg po daily trial and f/u with [facility] C3W1, with me after restaging chest CT C4W1. 11/19/2024: Tolerating Docetaxel now at 20% dose reduction, full dose ramucirumab with no growth factor. Cough and hoarseness improved since cycle #2 after Diflucan trial. Reports diarrhea after treating constipation, no concerns with electrolyte imbalance on today's cmp. cbc not yet resulted. Plan for chemo tomorrow as long as cbc is within parameters. Followup with Dr. Hess cycle [address] chest. (3) Epistaxis: Plan: Patient had an episode of epistaxis while sleeping about 3 days ago when his awakened him with quite a bit of blood on the pillow but no active bleeding. This may be related to his Cyramza and he has had prior epistaxis in the past. Since he has not had a recurrent episode we are treating with air humidifier and Vaseline to the nasal membranes. 11/08/2024: Due to recurrent episodes we referred him to ENT--no lesions found on nasopharyngoscopy for cautery of the nasal mucosa. We will see response to 1week fluconazole trial and docetaxel dose reduction. 11/19/2024: Symptoms improved. (4) Candidiasis of mouth and esophagus: Plan: oral white plaque with persistent cough and hoarseness. Trial fluconazole x 1 week with reassessment by [facility] prior to cycle 3 docetaxel/cyramza. If symptoms improved, renew prescription and continue during remaining cycles of docetaxel (planned total 6 cycles before cyramza maintenance. 11/19/2024: Symptoms improved (5) Drug-induced pneumonitis: Plan: Recurrent pneumonitis as addressed above. Medrol Dosepak for 1 week following next durvalumab and reassessment with next practitioner to see if this alleviates his symptoms. 02/17/2022: see above. Near resolution of symptoms with addition of Medrol Dosepak. He is back to his baseline dyspnea on exertion only with increased activity 05/05/2022: Intermittent worsening of cough and dyspnea between cycles but much improved with medrol dose pack each cycle. 08/04/2022: I reviewed progress note from consultation with pulmonary medicine Dr. Ann who recommends recurrent courses of prednisone 40 mg daily for 7 days, 30 mg daily for 7 days, 20 mg daily for 7 days, then 10 mg daily for 7 days. This will be repeated once monthly until pneumonitis improved off immunotherapy within the next 2 months. He will have follow-up appointment withDr. Ann next month. 11/04/2022: Patient does not feel that his cough and dyspnea is improved since end of durvalumab with last dose 09/01/2022, however he appears to be less symptomatic on exam today. He has maintained on prednisone 10 mg daily until follow-up with Dr. Ann next month. Imaging shows stable postradiation changes, likely exacerbated by prior immunotherapy. We will continue to follow with every 3-month scans. 02/03/2023: Cough and dyspnea are slowly improving since slow titration of prednisone, now 5 mg daily. Postradiation changes but no progression on chest CT. Continue follow-up with Dr. Ann as directed. 05/05/2023: Patient notes most recent follow-up with with Dr. Mathews and his current prednisone dose is 10 mg daily. Still no progression on chest CT but persistent postradiation changes and right lung volume loss. Continue follow-upwith pulmonary medicine as scheduled. 09/08/2023, 03/08/2024, 09/12/2024: No new symptoms. Titrated off prednisone fornow and will continue follow-up with Dr. Mathews as needed. 09/27/2024: Progression of disease on PET/CT with no new symptoms. Will utilizea noncheckpoint inhibitor regimen for recurrence of disease due to poor tolerance of durvalumab. Will continue to follow pulmonary status closely. 10/17/2024, 11/08/2024, 11/19/24: No worsening of symptoms after initiation of docetaxel and Cyramza as noted above. (6) Staghorn renal calculus: Plan: Left kidney staghorn calculus noted on April 2023 imaging--partial imaging on current CT but no indication for intervention at this time. Patient does not have any symptoms but has had a history of nephrolithiasis. Continue surveillance with primary care Dr. Smith. (7) Diarrhea: Plan: 11/19/2024: Symptoms already improving, had diarrhea for 4-5 days after treating constipation. Informed to try natural methods to help alleviate constipations. Informed to take Imodium 2 tabs after each first loose stool then 1 tab for eachloose stool thereafter max 8 tabs. Increase oral fluid intake. Call if symptoms worsen. Orders: Orders CT chest w con 3 Weeks C34.91 - Malignant neoplasm of unspecified part of rightbronchus or lung, Z01.89 - Encounter for other specified special examinations Patient Instructions: Restaging CT chest in 3wks follow up with Dr Hess after. May move cycle #4 to if schedule permits. CHEMO PLAN Treatment Plan Ramucirumab & Docetaxel Q21D Clinical Indication No Indication Cycle Number Last Admin 2 of 6 Cycle Day Next Admin 21 of 21 No Active Chemotherapy History of Present Illness HPI 11/19/2024: Néstor is ambulatory to the clinic with his spouse. He is scheduled for cycle #3 of chemotherapy tomorrow. He states he felt much better after cycle2 compared to cycle #1. He states he had constipation initially then took stool softeners and then has had diarrhea for about 4-5 days and took the Imodium but only up to 4 tabs daily. Informed to to take 2 tabs with first loose stool then 1 tab after each loose stool thereafter max 8 tabs daily. He states his symptomsare improving loose stools less frequent. He states his voice remains hoarse, but much improved, he is easily understood with communication. He reports drinking a lot of water and plans to get fluids containing electrolytes.Denies current pain, reports intermittent stabbing pain right chest wall, alleviated quickly with position changes, chronic since diagnosis. Appetite fair, eats t/o the day, smaller amounts. Weight loss of about 8 lbs since September. Reports sobwith activity and while coughing 5-10/10, symptoms improved since his last visit. Denies problems with voiding concerns or neuropathy. 11/08/2024: Néstor is here for cycle 2, day 10 followup after dose reduction ofDocetaxel by 20% with full dose Cyramza. Infusion port placed without difficulty and he notes improvement of prior fatigue and no joint aches with holding Neulasta. He saw Dr. Scott of ENT with no obvious source of nosebleedsor other abnormalities seen on nasopharyngoscopy. His hoarseness and cough is improved but still not resolved. He appears to have a white plaque coating overtongue and we will give him a trial of fluconazole 100mg po daily x 1 week and have him followup with [facility] prior to cycle 3 to see if cough and hoarseness improved. She may order followup CT Chest to assess response prior to cycle 4 when I will followup results. Moderate complexity 35 minute followup to review toxicities on chemo + Cyramza. 10/17/2024: Néstor received cycle 1, day 1 of docetaxel 75mg/m2 with Cyramza 10 mg/kg IV patient on 10/09/2024. He is scheduled for general surgery evaluation for infusion port placement tomorrow. Over the past week he has had marked fatigue with mild increased dyspnea on exertion and relatively stable cough. About 3 nights ago he had a nosebleed in the middle the night and his awakened him to the pillow with an extensive amount of blood. This resolved spontaneously and he has not had any further nosebleeds. No significant bruising and no hematuria or bright red blood per rectum. He denied any nasal trauma but is humidifying the air and using Vaseline in the nostrils. We discussed potentially referring to ENT for cauterization of a vessel if he has recurrent episodes. Otherwise laboratories were reviewed with mild leukocytosis(with growth factors given first cycle), normal hemoglobin and platelets, normalrenal and hepatic function. We will plan 20% dose reduction docetaxel and will hold growth factors due to generalized aching and mild leukocytosis for next scheduled therapy on 10/30/2024. I will see him cycle 2-week 2 to review toxicities and we will likely plan restaging imaging around that time. He may return sooner if new issues arise. Moderate complexity 35-minute follow-up to review toxicities. 09/27/2024: Néstor is here for 2-week follow-up to go over PET/CT and discuss further therapy due to results showing progression of disease. He has no interval change of his COPD with intermittent cough. PET/CT images and reports were reviewed with the patient and showing peripheral FDG avid mass in the right upper lobe with hilar, mediastinal, and right supraclavicular adenopathy consistent with progression of disease. No distant metastases noted and there is nonspecific focus of uptake in the left gluteal muscle SUV 5.2 that is indeterminate. The location of the mass would be challenging to biopsy and increased SUV levels within the right upper lobe are most consistent with recurrence of disease. 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 Goal of therapy is palliation of symptoms and prolongation of life but not curative. Delorisll follow- up with me cycle 1 week 2 for toxicity visit. High complexity 45-minute visit to review images and reports of PET/CT and counseling for docetaxeland Cyramza therapy. G2212 increased care complexity for preparation of orders. Today we reviewed chemotherapy counseling for docetaxel and Cyramza. Common toxicities were reviewed to include allergic reaction/infusion reactions, rashes, myelosuppression, fatigue, nausea, vomiting, constipation, diarrhea, mouth sores, and alopecia. Other toxicities may include hypertension, impaired wound healing, pneumonitis, neurologic, hepatic and renal toxicities. The patient signed informed consent and will follow-up as directed. 09/12/2024: Bert presents for 6-month followup for prior stage III lung cancerdiagnosed 3 years ago. He has unchanged right sided upper chest pain that resolves with deep breaths and he has been followed by Dr. Valencia of pulmonary medicine. No change in his current management of COPD and pneumonitis. No recent infections or hospital admissions. No urinary issues with asymptomatic left kidney staghorn calculus. Laboratories show normal CBC, normal renal and hepatic function. I reviewed Chest CT from 09/10/2024 imaging and report showing right upper lobe residual mass measuring 4.1 x 4.8 x 3.9 cm once measuring 3.1 x 3.6 x 3.0 cm in area of prior radiation with associated bronchiectasis. Indeterminate for progression of disease. I recommended PET/CTfor further evaluation and if there is any FDG avidity we will coordinate repeatbronchoscopy to determine if recurrence. He will follow-up with me after PET/CTin the next 1 to 2 weeks to review results and further plan. High complexity 45minute follow-up for review of images and reports and to set up PET/CT for further evaluation. ~~~~~~~~~~~~~~~~~~~~See prior followup notes for prior surveillance visits 11/04/2022: Fer is here for 3-month follow-up and review of CT chest after completing last dose 09/01/2022 of 1 year adjuvant durvalumab after concurrent chemoradiation. His dyspnea and cough recur intermittently and he remains on low-dose prednisone 10 mg daily with follow-up planned with Dr. Ann in mid November. He has not had any further ER visits or evidence of infection. No nausea/vomiting, diarrhea, bone pain, and immunotherapy labs normal. We will recheck his thyroid function tests with CBC and CMP at his 3-month follow-up. We reviewed images and reports of CT scans of chest from April, July, and most recent 11/01/2022 restaging scans. He has stable soft tissue prominence inthe right hilum and to a lesser extent the left hilum. Airspace opacities in the right perihilar distribution of the right upper lobe with a lesser extent inthe left perihilar region is unchanged compared to prior exam. Stable 13 mm focus of hypoattenuation in right hepatic lobe favoring cyst. 1.6 cm stone in the left renal pelvis. No obvious bony metastatic lesions. The patient denies any back pain or dysuria/hematuria. We will plan to follow-up exam, labs, and imaging in 3 months. He may return sooner if signs or symptoms of recurrence. Moderate complexity 35-minute follow-up visit for review of symptoms, labs, and images after completing 1 year of durvalumab maintenance therapy. 08/04/2022: Bert is here for follow-up on durvalumab maintenance therapy. He has 2 more doses 1 today and 1 in 4 weeks then will complete his 1 year maintenance therapy. He was seen by Dr. Ann of pulmonary medicine who has prescribed serial prednisone tapers for pneumonitis (40 mg x 1 week, 30 mg x 1 week, 20 mg x 1 week, 10 mg x 1 week and repeat each month). His dyspnea and cough has somewhat stabilized since the steroid courses, although he had a coughing fit yesterday that lasted about 3 hours. He did not seek any furtherevaluation in the emergency room and this has now resolved. He is currently on 30 mg daily of his prednisone without any significant cough or dyspnea greater than baseline. Otherwise no immunotherapy related toxicities such as rash or diarrhea. We reviewed his restaging CT chest from 08/02/2022 that shows persistent consolidative changes in the right upper lobe with loculated pleural effusion that is unchanged. Prior cavitary component has essentially resolved since prior study with stable scarring in the left hilar region. No new pulmonary nodules are noted. Labs show mild leukocytosis related to his steroids but otherwise stable hemoglobin and normal platelet count. Renal and hepatic function normal and no abnormalities of thyroid or adrenal function. Hewill continue 2 further cycles of therapy with durvalumab then stop. Follow-up in 3 months with contrast chest CT. He may return sooner as needed. Moderate complexity 35-minute follow-up visit for review of images and reports of CT and discussion of further therapy. 05/05/2022: Improvement of prior right chest wall pain with use of Medrol Dosepaks after each cycle of durvalumab. Stable dyspnea and cough. No other immunotherapy related toxicities other than pneumonitis. Restaging CT Chest reviewed--primary lesion similar size but more cavitary with surrounding ground glass opacities in prior radiation field. Will continue current durvalumab maintenance. Next f/u 3 months with contrast chest CT. End of therapy will be 08/2022 (sooner if unable to tolerate due to pneumonitis--tolerable with brief steroid course each cycle. ~~~~~~~~~~~~~~~~~~~ 11/11/2021: Bert presents with his for follow-up. His severe right-sided chest pain and dyspnea has now completely resolved from last visit. He has not had any suggestive toxicities from durvalumab--no diarrhea, skin rashes, or recurrent dyspnea. He has returned to normal performance status and denies any fatigue. We reviewed his laboratories showing no immunotherapy related endocrine toxicities. Since he is now at normal baseline, I will give his 2-week dosing of durvalumab today then change to every 4-week dosing. His next follow-up with me will be in 6 weeks and he will have restaging CT chest in lateFebruary unless new symptoms arise. 10/14/2021: Bert was sent to ER 1 week ago (10/07/2021) after presenting with severe right-sided chest pain for about 1 week. He did not report worsening with inspiration but was worse with eating. Chest CT showed regression of priorright middle lobe tumor with internal necrosis and regression of prior adenopathy. There was an infiltrate posterior to his mass and no evidence of pulmonary embolism. He completed a course of azithromycin and notes that his chest pain is now completely resolved. He has no dyspnea with exertion or cough. Otherwise tolerated initial Durvalumab dose well--few loose stools the evening of his dose but no anny diarrhea, no skin rashes, and laboratories are stable. He also notes that Dr. Smith recommended starting N-acetylcysteine supplementation for his immunity, however I asked him to hold this for now sincehe has only recently started durvalumab and I will research whether this is indicated with his immunotherapy. --We will continue every 2-week durvalumab to see if he has any further toxicities, then follow-up in 1 month. If well-tolerated we will change to every 4-week dosing. 09/24/2021: Bert presents with his to discuss commencing immunotherapy after completing 6 weeks of concurrent chemoradiation (last dose chemo 09/10, last radiation 09/16). Fatigue improved but he has had 3 episodes of epistaxis over the past week (longest lasting about 6-7 minutes). Improved with saline nasal spray--offered ENT eval but he wants to observe. Mild dyspnea on exertionand cough. Today we discussed immunotherapy maintenance with Durvalumab over one year (initially every 2 weeks, then every 4 weeks if well tolerated). Goal of therapy is curative. --Today we reviewed immunotherapy (checkpoint inhibitor) counseling for Durvalumab. Common toxicities were reviewed to include infusion reactions and allergic reactions, fatigue, skin rashes, visual and ocular toxicities, diarrhea, abdominal pain from pancreatitis, and abnormal thyroid, adrenal, and pituitary function. Other toxicities may include pneumonitis, sexual side effects, neurologic, hepatic and renal toxicities. The patient signed informed consent and will follow-up as directed. I will see him C2D1 durvalumab for tox check. 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 He has tolerated his treatment exceptionally well and has had very few side effects/toxicities to therapy. He reports good appetite, stable weight.Essentially has no pain and has only required 4 doses of Zofran for breakthroughnausea. He has mild GERD-like symptoms, well controlled with Prilosec. Specifically denies any issues with headaches, fever/chills, cough, shortness ofbreath, bowel/bladder problems, peripheral neuropathy, skin rash or lower extremity edema. --He will complete radiotherapy on Tuesday, September 16, 2021 and his last cycle (#6) weekly Carbo/Taxol will be given today. 08/27/2021: Here for week for follow-up of weekly carboplatin paclitaxel. Fatigue mildly increased with decreased appetite and minimal dysphagia but does not need to take additional medicine other than Tylenol for this. Otherwise no cough, dyspnea, fever, chills and no significant peripheral neuropathy. He willfollow-up in 2 weeks for chemoradiation toxicity visit with our nurse practitioner. I will then see him in 4 weeks after completion of chemoradiationand will discuss whether he gets consolidation carboplatin paclitaxel after restaging scan or continue with maintenance immunotherapy alone. 08/12/2021: Started concurrent chemoradiation with weekly Carboplatin/Paclitaxelone week ago. Tolerating well without cough, dyspnea, chest pain, bowel or bladder symptoms, or neuropathy. Will continue to follow every 2 weeks while onchemoradiation--likely candidate for one year immunotherapy with Imfinzi if response. 07/17/2021: This is a now 73 yo male accompanied by his for new diagnosis of right upper lobe mass, wrapping around right mainstem bronchus, with associated mediastinal adenopathy. He apparently had right upper lobe pneumonia in 2019, no imaging since that time. He is a former smoker, prior 40 year history, quit about 18 years ago. About 1-2 months ago he had persistent nonproductive cough without hemoptysis. Increased dyspnea, but his notes he has had chronic dyspnea over the past 4 years. Slow nonquantified weight loss, decreased appetite, hoarseness, and mild right chest discomfort. CT Chest imaging at [facility] on 06/23/2021 showed a large lobulated mass of the superior segment of the right upper lobe extending to the hilum. There appears to be invasion of the mass into the right mainstem bronchus. The mass measures approximately 5.5 x 7.6 x 6.0 cm. There is a low density lesion in the liver that appears to be a cyst. 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 He does not have other significant comorbidities, prior malignancy, or known family history. We discussed that involvement of the right mainstem bronchus and mediastinum is consistent with likely Stage III lung cancer, but he needs a PET/CT to exclude liver metastases. If no distant metastatic disease on PET/CT, we will coordinate chemoradiation with weekly carboplatin/paclitaxel. I ordered PET/CT, radiation oncology consultation and reviewed informed consent for Carboplatin/Paclitaxel. I will see him the same day as Radiation Oncology consult to review PET/CT. He did sign informed consent today to expedite concurrent chemoradiation if no distant metastatic disease. We will also contact pathology to add PDL1 status--if metastatic disease, he may be a candidate for immunotherapy +/- chemotherapy. Today we reviewed chemotherapy counseling for weekly Carboplatin and Paclitaxel. Goal of therapy is curative if stage III. Common toxicities were reviewed to include infusion reactions/allergic reactions, myelosuppression, fatigue, nausea, vomiting, constipation, diarrhea, mouth sores, and alopecia. Other toxicities may include pneumonitis, neurologic, hepatic and renal toxicities. Risk of secondary malignancy due to effects of chemotherapy on bone marrow. Thepatient signed informed consent and will follow-up as directed. Summary of Therapies Summary of Therapies: 08/06/2021: Commenced concurrent chemoradiation with Carboplatin AUC 2 IV Day 1 and Paclitaxel 45mg/m2 IV Day 1 weekly x 6 cycles. He was started on concurrent chemoradiotherapy treatment and received a dose of 6000 cGy to the right upper lobe mass and mediastinal nodes (bilateral) in 30 fractions from 08/06/2021 to 09/16/2021 over 41 elapsed days. Last cycle chemotherapy: 09/10/2021 - 09/30/2021: Cycle 1, Day 1 Durvalumab 10mg/kg IV every 2 weeks immunotherapy x 1 year. After 11/11/2021 2-week dose, changed to flat dose 1500 mg IV every 4-week dosing to complete 1 year of adjuvant immunotherapy. Last dose 09/01/2022. ~~~~~~~~~~~~~~~~~~~~~~~~~~~~~ 09/27/2024: Reviewed and signed informed consent for docetaxel and Cyramza at 100% dose. Cycle 1 day 1 10/09/24. Severe fatigue and nosebleeds with first cycle. Arthralgias secondary to growth factor support. Decreasing docetaxel to60 mg/m? IV with Ramucirumab 10 mg/kg IV 10/30/2024 for cycle 2-day 1 without growth factor support. Ramucirumab + docetaxel Day 1: Ramucirumab 10mg/kg IV + docetaxel 75mg/m2 IV. Repeat cycle every 3 weeks for 4-6 cycles Intake Vitals/Pain Assessment 11/19/24 09:52 Weight 115.666 kg BP 119/76 Blood Pressure Location Lt brachial Position Sitting Temp 97.8 F Temp Source Temporal Pulse 86 Pulse Source NIBP Respiration 16 Pulse Oximetry (%) 98 Oxygen Delivery Method room air Are you having pain? No Intake Visit Reasons: Follow Up, follow up visit Accompanied by: Self Allergies No Known Drug Allergies Allergy (Unknown, Verified 11/19/24 09:53) none - Last Reconciled 11/19/24 by SUNNI Pfeiffer acetylcysteine (NAC) 1,200 mg PO DAILY aspirin 81 mg PO DAILY benzonatate 100 mg PO TID PRN berberine chloride 1,500 mg PO DAILY carvedilol 3.125 mg PO BID docusate sodium (Colace) 200 mg PO QHS famotidine 20 mg PO DAILY hydrochlorothiazide 25 mg PO DAILY 30 days losartan 25 mg PO DAILY omeprazole 40 mg PO DAILY ondansetron HCl 8 mg PO Q8HR PRN simvastatin (Zocor) 80 mg PO QHS Gastrointestinal Is the patient taking opioids for pain control?: No Bowel Pattern: Irregular and Diarrhea Falls Fall Precaution Measures Taken: Patient in chair Nurse's Note: Patient is here today for a follow up visit and go over [facility] Medical History Medical History Asbestos exposure Traction bronchiectasis History of tobacco abuse quit in 2001 Pulmonary fibrosis Non-small cell cancer of right lung Staghorn renal calculus Drug-induced pneumonitis Hyperlipidemia Hypertensive heart disease Lung mass Surgical History Surgical History History of appendectomy History of carpal tunnel release History of neck surgery Family History Family History Father Heart disease Mother Diabetes Hypertension Sister Cancer Father No problems noted. Mother No problems noted. Sister Cancer Brother Cancer Brother Cancer Brother Cancer Social History Social History Smoking status: Former smoker What tobacco products do you use: cigarettes Smoking quit date/years: >15 years ago Within the past year, how often did you have a drink containing alcohol: never AUDIT-C Alcohol total score: 0 AUDIT-C Alcohol score interpretation: A score less than 4 is consistent with normal alcohol consumption. 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 Still independent for ADLs and not requiring home oxygen. HEAD AND NECK: Negative for changes in hearing and vision. Negative for mouth ulcers, nasal congestion and nasal drainage. Positive for epistaxis--no visiblelesion on ENT evaluation. Treating with humidifying air and nasal Vaseline. Persistent hoarseness--1 week course of Diflucan prescribed 11/08/2024. Hoarseness improved since cycle #2, can communicate much easier. PULMONARY: October 2023 ER visit for dyspnea, noted early pneumonia but did notrequire admission. Intermittent right chest wall pain--unchanged. Recurrent dyspnea/cough intermittent, improved since cycle #2 of chemotherapy. Prior hoarseness seems to be improving a little with stable dyspnea on exertion. CARDIOVASCULAR: Negative for claudication and irregular heartbeat/palpitations. No edema. GASTROINTESTINAL: Negative for abdominal pain. Initially reports constipation after cycle #2 then has had diarrhea for 4-5 days, improving, will utilize Imodium more frequently, no nausea or vomiting. Improved appetite and improvingdysphagia/resolved odynophagia as per HPI. GENITOURINARY: Negative for dysuria and hematuria. + h/o nephrolithiasis--left kidney shows staghorn calculus on imaging but patient does not have any symptoms, primary care elected continued observation only. ENDOCRINE: Negative for cold intolerance and heat intolerance. CENTRAL NERVOUS SYSTEM: Negative for gait disturbance and headache. No history of stroke. PSYCHIATRIC: Negative for anxiety or depression. DERMATOLOGICAL: Negative for pruritus and rash. Negative for suspicious skin lesions. MUSCULOSKELETAL: Negative for back pain and bone/joint symptoms. HEMATOLOGICAL: Negative for bleeding and easy bruising. Negative for history of transfusion or thromboembolic disease ALLERGY: Negative for environmental allergies and food allergies. Physical Exam EXAM ECOG PS 2 due to fatigue, Pain 0/10 CONSTITUTIONAL: The patient appears less fatigued, in no acute distress. HEAD / FACE: Normocephalic; atraumatic, no scleral icterus. EYES: Pupils are equal and reactive to light. Conjunctivae and lids are benign in appearance. Ocular movement intact. EARS: Hearing grossly intact. NOSE / MOUTH / THROAT: Nasal exam was deferred due to recent ENT eval. Oral cavity and oropharynx white plaque lesions improved after Diflucan without aphthous ulcers or thrush. No pharyngeal inflammation. NECK / THYROID: Neck is supple. Thyroid is symmetrical, without thyromegaly, masses or palpable nodules. LYMPHATIC: No palpable cervical, supraclavicular, axillary, or inguinal adenopathy. RESPIRATORY: Normal to inspection. Lungs clear to auscultation bilaterally--prolonged expiratory phase similar to prior exams; no significant rhonchi, wheezes or rales. Nonlabored respirations CARDIOVASCULAR: Regular rate and rhythm. No murmurs, gallops, or rubs. VASCULAR: Carotid, radial, femoral and pedal pulses present bilaterally. No bruits. ABDOMEN: Bowel sounds normoactive. Soft, nontender and non-distended. No hepatosplenomegaly. No masses. INTEGUMENTARY: The skin is unremarkable. No rashes. No suspicious lesions MUSCULOSKELETAL: Normal musculature, no joint deformities or abnormalities, normal range of motion for all four extremities. EXTREMITIES: No edema, cyanosis or clubbing. NEUROLOGICAL: Alert and oriented. Cranial nerves intact. No gross motor or sensory deficits. Ambulates independently. PSYCHIATRIC: No anxiety or evidence of depression. Results - [facility] LAB RESULTS Corrected WBC 3.5 X10E3/uL (4.1-10.5) L 11/06/24 10:11/06 Hgb 12.0 g/dL (13.0-17.0) L 11/06/24 10: 4 Hct 36.3 % (38.8-50.0) L 11/06/24 10:11/06/24 MCV 85.6 fl (83.5-101) 11/06/24 10:11/06/24 RDW 16.2 % (12.0-14.8) H 11/06/24 10:11/06/24 Plt Count 344 x10E3/uL (150-450) 11/06/24 10:11/06/24 Sodium 141 mmol/L (136-145) 11/19/24 09:25 11/19/24 Potassium 3.7 mmol/L (3.5-5.1) 11/19/24 09:11/19/24 BUN 12 mg/dL (7-25) 11/19/24 09:25 11/19/24 Creatinine 1.12 mg/dL (0.70-1.30) 11/19/24 09:25 11/19/24 Glucose 127 mg/dL (70-100) H 11/19/24 09:25 11/19/24 Est GFR (CKD-EPI) > 60.0 mL/Min 11/19/24 09:25 11/19/24 Calcium 9.4 mg/dL (8.6-10.3) 11/19/24 09:25 11/19/24 Total Bilirubin 0.5 mg/dl (0.3-1.0) 11/19/24 09:25 11/19/24 AST 15 U/L (13-39) 11/19/24 09:25 11/19/24 ALT 16 U/L (7-52) 11/19/24 09:25 11/19/24 Alkaline Phosphatase 53 U/L (34-104) 11/19/24 09:25 11/19/24 Total Protein 7.3 gm/dL (6.4-8.9) 11/19/24 09:25 11/19/24 Albumin 3.8 gm/dL (3.5-5.7) 11/19/24 09:25 11/19/24 Dictated By: Mari Diaz APRN DD/ 4 Signed By: <Electronically signed by LUISITO Diaz> 11/19/24 10[address] [facility] Work Phone: Progress note Author Natacha Hess [facility] Note Date/Time January 23, 2025 11: 23[facility] [place] [address] Cancer Center Note Signed Patient: Bert Yeung MR#: [id number] : 1950 Acct:[id number] Age/Sex: 74 / M Type: DEP AMB Date of Service: 01/23/25 Copies to: Howie Smith DO~ Assessment & Plan A/P (1) Encounter for chemotherapy management: Plan: Initial diagnosis July 2021: No distant metastatic disease on PET/CT for staging (bilateral mediastinal and subcarinal adenopathy noted). Concurrent chemoradiation commenced 08/06/2021--Carboplatin AUC 2 IV and Paclitaxel 45mg/m2 IV weekly x 6-7 weeks. Tolerated well. He completed Cycle 6 weekly Carboplatin/Paclitaxel therapy 09/10/2021 and radiotherapy complete on 09/16/2021. Cycle 1 day 1 09/30/2021 durvalumab 10mg/kg IV every 2 weeks immunotherapy as noted above. Changed to flat dose durvalumab 1500 milligrams IV every 4 weeks with 11/23/2021 dose. 08/04/2022: Continue durvalumab 1500mg IV every 4 weeks in addition to Medrol Dosepak day after each infusion given improvement of pneumonitis symptoms. End of 1 year of therapy 09/01/202208/2024: Follow-up of 6-month restaging scans and review of symptoms. Review images and reports over total 45-minute visit. 09/27/2024: Progression of disease on PET/CT, reviewed and signed informed consent for docetaxel 75 mg/m2 IV day 1 with ramucirumab 10 mg/kg IV day 1 every3 weeks for total of 6 cycles followed by ramucirumab maintenance if response. Commence therapy within the next week. 10/17/2024: Patient received first cycle of docetaxel 75 mg/m? with ramucirumab 10 mg/kg IV day 1 every 3 weeks for first cycle on 10/09/2024. He had significant fatigue, epistaxis, and mild leukocytosis with arthralgias with growth factor support. Given his significant symptoms we are dose reducing his second cycle of docetaxel to 60 mg/m? with the same dose of ramucirumab for cycle 2 on 10/30/2024. It is also reasonable to drop his growth factor support with dose reduction. I will see him cycle 2-week 2 to review toxicities and to coordinate restaging imaging. He may return sooner if new issues arise. If he has recurrent epistaxis we may consider ENT referral. 11/08/2024: Tolerating Docetaxel now at 20% dose reduction, full dose ramucirumab with no growth factor. Persistent cough, hoarseness and intermittent epistaxis with no lesion on ENT eval (Dr. Scott). 1 week trial ofDiflucan for hoarseness and cough. Followup with [facility] C3W1 for response, restaging after first 3 cycles and f/u with me cycle 4. Moderate complexity 35 minute followup. 11/19/2024: Tolerating Docetaxel now at 20% dose reduction, full dose ramucirumab with no growth factor. Cough and hoarseness improved since cycle #2 after Diflucan trial. Reports diarrhea after treating constipation, no concerns with electrolyte imbalance on today's cmp. cbc not yet resulted. Plan for chemo tomorrow as long as cbc is within parameters. Followup with Dr. Hess cycle [address] chest[address] 12/12/2024: Partial response of enlarging lung mass in right upper lobe on CT Chest after 3 cycles of docetaxel/Cyramza. Will continue 3 more cycles at same dosing and followup toxicity check cycle 6, day 1. If stable symptoms, considercontinuing Cyramza maintenance only after 6 cycles. High complexity 45 minute (review Dr. Scott consult, review restaging imaging/reports, chemo plan) 01/23/2025: Cycle 6-day 1 docetaxel at 20% dose reduction, full dose Cyramza. Noting toxicities. Restaging chest CT in 3 weeks, then changed to Cyramza maintenance if responsive disease. (2) Malignant neoplasm of overlapping sites of right bronchus and lung: Plan: Stage IIIB right upper lobe (overlapping sites involving right mainstem bronchus). No distant metastatic disease on initial PET/CT for staging. --09/08/2023: Now 2 years from diagnosis with no recurrence and stable right upper lobe bronchiectasis on restaging scans. We will extend surveillance follow-up to every 6 months. 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 No distant metastatic disease on PET/CT, therefore we coordinated chemoradiation with weekly carboplatin/paclitaxel. He commenced weekly Carboplatin/Paclitaxel with radiation on 08/06/2021 and today he will be receiving #6 Carboplatin/Paclitaxel and is scheduled to completed radiation therapy on 09/16/2021. 08/12/2021: No toxicities other than mild increase in creatinine. 08/27/2021: Grade 1 odynophagia with decreased appetite. Added sucralfate slurry 1 g every 6 hours as needed for remainder of chemoradiation. 09/10/2021: Grade 1 fatigue; otherwise no significant toxicities to chemotherapy; weight is stable; stable anemia. Normal electrolytes. Minimal nausea and no significant pain other than some acid reflux like symptoms; well controlled with Prilosec. --Patient completed Cycle 6 weekly Carboplatin/Paclitaxel therapy (09/10/2021) and radiotherapy to complete on 09/16/2021. - 09/24/2021: Reviewed informed consent for Durvalumab maintenance therapy 10mg/kg IV every 2 weeks x 1 year (ok to change to monthly therapy if well tolerated). 10/14/2021: Patient was sent to ER for right chest wall pain on 10/07 following first durvalumab dose 09/30/2021. Noted to have regression of prior right middle lobe lesion and adenopathy with small adjacent infiltrate (this may be postradiation change but patient was placed on antibiotics). His pain has now completely resolved with no significant cough. Otherwise tolerating immunotherapy well. We will continue him on every 2-week dosing until receivingwhether he has recurrent chest discomfort or symptoms on durvalumab. Next follow-up with me in 4 weeks for toxicity check on immunotherapy. We will not repeat his chest CT since this was just performed in emergency department. ~~~~~~~~~~~~~~~~~~~~~~~~ Last dose 1 year of maintenance durvalumab 09/01/2022. I will schedule restaging CT chest and follow-up with me in 3 months for survivorship visit. Hemay return sooner if new symptoms arise. Mod complexity visit over 35 minutes to review restaging scans. 11/04/2022: Stable intermittent dyspnea and cough on low-dose prednisone 20 mg daily followed by Dr. Ann who sees him in mid November. No residual symptoms concerning for immunotherapy related toxicity other than pneumonitis noted below. CT scan shows stable postradiation changes of right upper lobe and bilateral perihilar areas. No areas concerning for metastatic disease. His last dose of durvalumab was 09/01/2022. Next follow-up with restaging CT chest with contrast and labs including CBC, CMP, TSH, and free T4 in January 2023 but hemay return sooner if new symptoms arise concerning for recurrence. Okay for himto see nurse practitioner and review survivorship plan at that time. Moderate complexity 35-minute follow-up. 02/03/2023: Cough and dyspnea are slowly improving since slow titration of prednisone, now 5 mg daily. Postradiation changes but no progression on chest CT. Continue every 3-month surveillance. Low complexity follow-up 25 minutes. 05/05/2023: Cough and dyspnea stable although now maintaining prednisone 10 mg daily, following with Dr. Mathews. Postradiation changes without progression on chest CT but persistent volume loss and small right pleural effusion. Incidental note of left kidney staghorn calculus which is asymptomatic. Defer evaluation of this and mild hypokalemia to primary care. Next follow-up with chest CT with contrast will be deferred to 4 months and I will review symptoms, exam, and results of chest CT at that time. Low complexity follow-up 25 minutes. 09/08/2023: Patient has stable intermittent cough and dyspnea but no recent infections. Has been titrated off maintenance prednisone and chest CT was reviewed showing postradiation changes without new nodules or progression of known infiltrates. He reviewed the staghorn calculus with primary care who is decided to continue surveillance only. Next follow-up with CT chest with contrast is deferred to 6 months but he may return sooner if new issues arise. Low complexity follow-up 25 minutes. 03/08/2024: He still has intermittent right-sided chest pain but cough and dyspnea have improved. Mainly exacerbated by windy conditions but no limitations of activities. Chest CT was reviewed and is stable and we will continue monitoring every 6 months. No nodules suggestive of recurrence. He may return sooner if new issues arise. Moderate complexity 30-minute follow-up. 09/12/2024: No progression of pulmonary symptoms but most recent CT scan shows some mild increase of residual mass concerning for possible progression. He will be sent for PET/CT for further evaluation and if FDG avidity noted we will set up diagnostic bronchoscopy. Patient is in agreement with this plan over this high complexity 45-minute follow-up for review of images and reports in thecoordinate PET/CT. 09/27/2024: No progression of pulmonary symptoms but PET/CT confirms peripheral FDG enhancement with max SUV 9.5 with right supraclavicular adenopathy, hilar and mediastinal adenopathy. This appears most consistent with recurrence of lung carcinoma and due to the location of the necrotic mass and adenopathy this would be challenging for rebiopsy. Since he had poor tolerance of prior durvalumab with immunotherapy related pneumonitis, we decided to proceed with second line therapy with docetaxel 75 mg/m? IV day 1 with ramucirumab 10 mg/kg day 1 for 6 cycles, then ramucirumab maintenance of response. We reviewed images and reports of his PET/CT and discussed informed consent. Next follow-upwith CBC and CMP for toxicity visit 1 week after starting docetaxel with Cyramzatherapy. High complexity visit over 45 minutes with additional G2212 complexityof care for preparation of new chemotherapy orders and to review consent. 10/17/2024: As noted above patient had increased fatigue, dyspnea with exertion, and epistaxis with his first cycle of docetaxel Cyramza. Dose reduction of docetaxel by 20% will be planned for cycle 2 on 10/30/2024. Continue full dose Cyramza. Restaging after 3 cycles. Moderate complexity 35-minute toxicity follow-up. 11/08/2024: Improved fatigue and dyspnea on exertion with docetaxel dose reduction cycle 2. Still intermittent epistaxis after no lesion seen on nasopharyngoscopy. 1 week fluconazole 100mg po daily trial and f/u with [facility] C3W1, with me after restaging chest CT C4W1. 11/19/2024: Tolerating Docetaxel now at 20% dose reduction, full dose ramucirumab with no growth factor. Cough and hoarseness improved since cycle #2 after Diflucan trial. Reports diarrhea after treating constipation, no concerns with electrolyte imbalance on today's cmp. cbc not yet resulted. Plan for chemo tomorrow as long as cbc is within parameters. Followup with Dr. Hess cycle [address] chest[address] 12/12/2024: No new toxicities on 20% dose reduced docetaxel with 100% dose Cyramza. Partial response on Chest CT, resuming daily fluconazole 100mg daily due to recurrent hoarseness pending tertiary ENT consult from Dr. Scott to Dr. Pablo at due to epiglottis and arytenoid leukoplakia and erythroplakia. Follow LFTs closely on docetaxel and fluconazole. Next followup cycle 6 toxicity check, then possible Cyramza maintenance. 01/23/2025: Here for cycle 6-day 1 docetaxel with ramucirumab. No new toxicitiesand stable fatigue. Has follow-up with Dr. Pablo at ENT later this week. Proceed with sixth cycle today and restaging CT chest in 3 weeks. If overall responsive disease, we will drop docetaxel and continue Cyramza maintenance alone. Moderate complexity 35-minute follow-up. (3) Candidiasis of mouth and esophagus: Plan: oral white plaque with persistent cough and hoarseness. Trial fluconazole x 1 week with reassessment by [facility] prior to cycle 3 docetaxel/cyramza. If symptoms improved, renew prescription and continue during remaining cycles of docetaxel (planned total 6 cycles before cyramza maintenance. 11/19/2024: Symptoms improved 12/12/2024: Worsening hoarseness off fluconazole, noted leukoplakia on [employer] by Dr. Scott. Will resume fluconazole 100mg daily maintenance pending tertiary ENT referral. 01/23/2025: Later this week he has follow-up with Dr. Pablo at [facility] for evaluation of leukoplakia. Hoarseness is stable from prior cycles. (4) Drug-induced pneumonitis: Plan: Recurrent pneumonitis as addressed above. Medrol Dosepak for 1 week following next durvalumab and reassessment with next practitioner to see if this alleviates his symptoms. 02/17/2022: see above. Near resolution of symptoms with addition of Medrol Dosepak. He is back to his baseline dyspnea on exertion only with increased activity 05/05/2022: Intermittent worsening of cough and dyspnea between cycles but much improved with medrol dose pack each cycle. 08/04/2022: I reviewed progress note from consultation with pulmonary medicine Dr. Ann who recommends recurrent courses of prednisone 40 mg daily for 7 days, 30 mg daily for 7 days, 20 mg daily for 7 days, then 10 mg daily for 7 days. This will be repeated once monthly until pneumonitis improved off immunotherapy within the next 2 months. He will have follow-up appointment withDr. Ann next month. 11/04/2022: Patient does not feel that his cough and dyspnea is improved since end of durvalumab with last dose 09/01/2022, however he appears to be less symptomatic on exam today. He has maintained on prednisone 10 mg daily until follow-up with Dr. Ann next month. Imaging shows stable postradiation changes, likely exacerbated by prior immunotherapy. We will continue to follow with every 3-month scans. 02/03/2023: Cough and dyspnea are slowly improving since slow titration of prednisone, now 5 mg daily. Postradiation changes but no progression on chest CT. Continue follow-up with Dr. Ann as directed. 05/05/2023: Patient notes most recent follow-up with with Dr. Mathews and his current prednisone dose is 10 mg daily. Still no progression on chest CT but persistent postradiation changes and right lung volume loss. Continue follow-upwith pulmonary medicine as scheduled. 09/08/2023, 03/08/2024, 09/12/2024: No new symptoms. Titrated off prednisone fornow and will continue follow-up with Dr. Mathews as needed. 09/27/2024: Progression of disease on PET/CT with no new symptoms. Will utilizea noncheckpoint inhibitor regimen for recurrence of disease due to poor tolerance of durvalumab. Will continue to follow pulmonary status closely. 10/17/2024, 11/08/2024, 11/19/24, 12/12/2024, 01/23/2025: No worsening of symptoms after initiation of docetaxel and Cyramza as noted above. (5) Staghorn renal calculus: Plan: Left kidney staghorn calculus noted on April 2023 imaging--partial imaging on current CT but no indication for intervention at this time. Patient does not have any symptoms but has had a history of nephrolithiasis. Continue surveillance with primary care Dr. Smith. (6) Diarrhea: Plan: 11/19/2024: Symptoms already improving, had diarrhea for 4-5 days after treating constipation. Informed to try natural methods to help alleviate constipations. Informed to take Imodium 2 tabs after each first loose stool then 1 tab for eachloose stool thereafter max 8 tabs. Increase oral fluid intake. Call if symptoms worsen. 12/12/2024, 01/23/2025: No recurrence of diarrhea on current regimen. Orders: Orders CT chest w con 3 Weeks C34.11 - Malignant neoplasm of upper lobe, right bronchus or lung, Z01.89 - Encounter for other specified special examinations Patient Instructions: Follow up with Dr Hess in 3wks with CT of the chest before visit. Plan Cyramza maintenance in 3ks CHEMO PLAN Treatment Plan Ramucirumab & Docetaxel Q21D Clinical Indication No Indication Cycle Number Last Admin 5 of 12 Completed Cycle Day Next Admin No Active Chemotherapy History of Present Illness HPI 01/23/2025: Persistent fatigue, cough, and dyspnea. Scheduled to see Dr. Pablo ENT later this week. Mild improvement of his hoarseness and continuing dailymaintenance fluconazole. Occasional epistaxis but no other sites of bleeding. He feels improvement of fatigue since prior dose reduction of docetaxel. He will receive 6 doses of combined docetaxel/Cyramza today with restaging CT scan of chest in 3 weeks. If he has ongoing response of disease we will drop docetaxel and continue Cyramza maintenance. Moderate complexity 35-minute follow-up. 12/12/2024: Here for restaging Chest CT review. I reviewed his eval with Dr. Scott and he noted leukoplakia over his epiglottis and arytenoids showing leukoplakia and erythroplakia. He referred him for tertiary center ENT evaluation at (Dr. Pablo). Hoarseness has recurred--previously improved after a trial of fluconazole 100mg po daily x 1 week in late October. Prior epistaxis has resolved--I will resume daily maintenance fluconazole 100mg po daily and encouraged him to continue workup with Dr. Pablo as scheduled. Images and reports of Chest CT shows regression of primary lung mass and breathing improved from start of therapy. Minimal diarrhea and controlled nausea. Plan to continue current 80% dose Taxotere/Cyramza and next tox check in 6 weeks, cycle 6, day 1. May consider Cyramza maintenance after 6 cycles. Patient agrees with this plan over this 45 minute high complexity visit (review Dr. Scott consult, review restaging imaging/reports, chemo plan). 11/19/2024: Néstor is ambulatory to the clinic with his spouse. He is scheduled for cycle #3 of chemotherapy tomorrow. He states he felt much better after cycle2 compared to cycle #1. He states he had constipation initially then took stool softeners and then has had diarrhea for about 4-5 days and took the Imodium but only up to 4 tabs daily. Informed to to take 2 tabs with first loose stool then 1 tab after each loose stool thereafter max 8 tabs daily. He states his symptomsare improving loose stools less frequent. He states his voice remains hoarse, but much improved, he is easily understood with communication. He reports drinking a lot of water and plans to get fluids containing electrolytes.Denies current pain, reports intermittent stabbing pain right chest wall, alleviated quickly with position changes, chronic since diagnosis. Appetite fair, eats t/o the day, smaller amounts. Weight loss of about 8 lbs since September. Reports sobwith activity and while coughing 5-10/10, symptoms improved since his last visit. Denies problems with voiding concerns or neuropathy. 11/08/2024: Néstor is here for cycle 2, day 10 followup after dose reduction ofDocetaxel by 20% with full dose Cyramza. Infusion port placed without difficulty and he notes improvement of prior fatigue and no joint aches with holding Neulasta. He saw Dr. Scott of ENT with no obvious source of nosebleedsor other abnormalities seen on nasopharyngoscopy. His hoarseness and cough is improved but still not resolved. He appears to have a white plaque coating overtongue and we will give him a trial of fluconazole 100mg po daily x 1 week and have him followup with [facility] prior to cycle 3 to see if cough and hoarseness improved. She may order followup CT Chest to assess response prior to cycle 4 when I will followup results. Moderate complexity 35 minute followup to review toxicities on chemo + Cyramza. 10/17/2024: Néstor received cycle 1, day 1 of docetaxel 75mg/m2 with Cyramza 10 mg/kg IV patient on 10/09/2024. He is scheduled for general surgery evaluation for infusion port placement tomorrow. Over the past week he has had marked fatigue with mild increased dyspnea on exertion and relatively stable cough. About 3 nights ago he had a nosebleed in the middle the night and his awakened him to the pillow with an extensive amount of blood. This resolved spontaneously and he has not had any further nosebleeds. No significant bruising and no hematuria or bright red blood per rectum. He denied any nasal trauma but is humidifying the air and using Vaseline in the nostrils. We discussed potentially referring to ENT for cauterization of a vessel if he has recurrent episodes. Otherwise laboratories were reviewed with mild leukocytosis(with growth factors given first cycle), normal hemoglobin and platelets, normalrenal and hepatic function. We will plan 20% dose reduction docetaxel and will hold growth factors due to generalized aching and mild leukocytosis for next scheduled therapy on 10/30/2024. I will see him cycle 2-week 2 to review toxicities and we will likely plan restaging imaging around that time. He may return sooner if new issues arise. Moderate complexity 35-minute follow-up to review toxicities. 09/27/2024: Néstor is here for 2-week follow-up to go over PET/CT and discuss further therapy due to results showing progression of disease. He has no interval change of his COPD with intermittent cough. PET/CT images and reports were reviewed with the patient and showing peripheral FDG avid mass in the right upper lobe with hilar, mediastinal, and right supraclavicular adenopathy consistent with progression of disease. No distant metastases noted and there is nonspecific focus of uptake in the left gluteal muscle SUV 5.2 that is indeterminate. The location of the mass would be challenging to biopsy and increased SUV levels within the right upper lobe are most consistent with recurrence of disease. 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 Goal of therapy is palliation of symptoms and prolongation of life but not curative. Hewill follow- up with pr cycle 1 week 2 for toxicity visit. High complexity 45-minute visit to review images and reports of PET/CT and counseling for docetaxeland Cyramza therapy. G2212 increased care complexity for preparation of orders. Today we reviewed chemotherapy counseling for docetaxel and Cyramza. Common toxicities were reviewed to include allergic reaction/infusion reactions, rashes, myelosuppression, fatigue, nausea, vomiting, constipation, diarrhea, mouth sores, and alopecia. Other toxicities may include hypertension, impaired wound healing, pneumonitis, neurologic, hepatic and renal toxicities. The patient signed informed consent and will follow-up as directed. 09/12/2024: Bert presents for 6-month followup for prior stage III lung cancerdiagnosed 3 years ago. He has unchanged right sided upper chest pain that resolves with deep breaths and he has been followed by Dr. Valencia of pulmonary medicine. No change in his current management of COPD and pneumonitis. No recent infections or hospital admissions. No urinary issues with asymptomatic left kidney staghorn calculus. Laboratories show normal CBC, normal renal and hepatic function. I reviewed Chest CT from 09/10/2024 imaging and report showing right upper lobe residual mass measuring 4.1 x 4.8 x 3.9 cm once measuring 3.1 x 3.6 x 3.0 cm in area of prior radiation with associated bronchiectasis. Indeterminate for progression of disease. I recommended PET/CTfor further evaluation and if there is any FDG avidity we will coordinate repeatbronchoscopy to determine if recurrence. He will follow-up with me after PET/CTin the next 1 to 2 weeks to review results and further plan. High complexity 45minute follow-up for review of images and reports and to set up PET/CT for further evaluation. ~~~~~~~~~~~~~~~~~~~~See prior followup notes for prior surveillance visits 11/04/2022: Fer is here for 3-month follow-up and review of CT chest after completing last dose 09/01/2022 of 1 year adjuvant durvalumab after concurrent chemoradiation. His dyspnea and cough recur intermittently and he remains on low-dose prednisone 10 mg daily with follow-up planned with Dr. Ann in mid November. He has not had any further ER visits or evidence of infection. No nausea/vomiting, diarrhea, bone pain, and immunotherapy labs normal. We will recheck his thyroid function tests with CBC and CMP at his 3-month follow-up. We reviewed images and reports of CT scans of chest from April, July, and most recent 11/01/2022 restaging scans. He has stable soft tissue prominence inthe right hilum and to a lesser extent the left hilum. Airspace opacities in the right perihilar distribution of the right upper lobe with a lesser extent inthe left perihilar region is unchanged compared to prior exam. Stable 13 mm focus of hypoattenuation in right hepatic lobe favoring cyst. 1.6 cm stone in the left renal pelvis. No obvious bony metastatic lesions. The patient denies any back pain or dysuria/hematuria. We will plan to follow-up exam, labs, and imaging in 3 months. He may return sooner if signs or symptoms of recurrence. Moderate complexity 35-minute follow-up visit for review of symptoms, labs, and images after completing 1 year of durvalumab maintenance therapy. 08/04/2022: Bert is here for follow-up on durvalumab maintenance therapy. He has 2 more doses 1 today and 1 in 4 weeks then will complete his 1 year maintenance therapy. He was seen by Dr. Ann of pulmonary medicine who has prescribed serial prednisone tapers for pneumonitis (40 mg x 1 week, 30 mg x 1 week, 20 mg x 1 week, 10 mg x 1 week and repeat each month). His dyspnea and cough has somewhat stabilized since the steroid courses, although he had a coughing fit yesterday that lasted about 3 hours. He did not seek any furtherevaluation in the emergency room and this has now resolved. He is currently on 30 mg daily of his prednisone without any significant cough or dyspnea greater than baseline. Otherwise no immunotherapy related toxicities such as rash or diarrhea. We reviewed his restaging CT chest from 08/02/2022 that shows persistent consolidative changes in the right upper lobe with loculated pleural effusion that is unchanged. Prior cavitary component has essentially resolved since prior study with stable scarring in the left hilar region. No new pulmonary nodules are noted. Labs show mild leukocytosis related to his steroids but otherwise stable hemoglobin and normal platelet count. Renal and hepatic function normal and no abnormalities of thyroid or adrenal function. Hewill continue 2 further cycles of therapy with durvalumab then stop. Follow-up in 3 months with contrast chest CT. He may return sooner as needed. Moderate complexity 35-minute follow-up visit for review of images and reports of CT and discussion of further therapy. 05/05/2022: Improvement of prior right chest wall pain with use of Medrol Dosepaks after each cycle of durvalumab. Stable dyspnea and cough. No other immunotherapy related toxicities other than pneumonitis. Restaging CT Chest reviewed--primary lesion similar size but more cavitary with surrounding ground glass opacities in prior radiation field. Will continue current durvalumab maintenance. Next f/u 3 months with contrast chest CT. End of therapy will be 08/2022 (sooner if unable to tolerate due to pneumonitis--tolerable with brief steroid course each cycle. ~~~~~~~~~~~~~~~~~~~ 11/11/2021: Bert presents with his for follow-up. His severe right-sided chest pain and dyspnea has now completely resolved from last visit. He has not had any suggestive toxicities from durvalumab--no diarrhea, skin rashes, or recurrent dyspnea. He has returned to normal performance status and denies any fatigue. We reviewed his laboratories showing no immunotherapy related endocrine toxicities. Since he is now at normal baseline, I will give his 2-week dosing of durvalumab today then change to every 4-week dosing. His next follow-up with me will be in 6 weeks and he will have restaging CT chest in lateFebruary unless new symptoms arise. 10/14/2021: Bert was sent to ER 1 week ago (10/07/2021) after presenting with severe right-sided chest pain for about 1 week. He did not report worsening with inspiration but was worse with eating. Chest CT showed regression of priorright middle lobe tumor with internal necrosis and regression of prior adenopathy. There was an infiltrate posterior to his mass and no evidence of pulmonary embolism. He completed a course of azithromycin and notes that his chest pain is now completely resolved. He has no dyspnea with exertion or cough. Otherwise tolerated initial Durvalumab dose well--few loose stools the evening of his dose but no anny diarrhea, no skin rashes, and laboratories are stable. He also notes that Dr. Smith recommended starting N-acetylcysteine supplementation for his immunity, however I asked him to hold this for now sincehe has only recently started durvalumab and I will research whether this is indicated with his immunotherapy. --We will continue every 2-week durvalumab to see if he has any further toxicities, then follow-up in 1 month. If well-tolerated we will change to every 4-week dosing. 09/24/2021: Bert presents with his to discuss commencing immunotherapy after completing 6 weeks of concurrent chemoradiation (last dose chemo 09/10, last radiation 09/16). Fatigue improved but he has had 3 episodes of epistaxis over the past week (longest lasting about 6-7 minutes). Improved with saline nasal spray--offered ENT eval but he wants to observe. Mild dyspnea on exertionand cough. Today we discussed immunotherapy maintenance with Durvalumab over one year (initially every 2 weeks, then every 4 weeks if well tolerated). Goal of therapy is curative. --Today we reviewed immunotherapy (checkpoint inhibitor) counseling for Durvalumab. Common toxicities were reviewed to include infusion reactions and allergic reactions, fatigue, skin rashes, visual and ocular toxicities, diarrhea, abdominal pain from pancreatitis, and abnormal thyroid, adrenal, and pituitary function. Other toxicities may include pneumonitis, sexual side effects, neurologic, hepatic and renal toxicities. The patient signed informed consent and will follow-up as directed. I will see him C2D1 durvalumab for tox check. 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 He has tolerated his treatment exceptionally well and has had very few side effects/toxicities to therapy. He reports good appetite, stable weight.Essentially has no pain and has only required 4 doses of Zofran for breakthroughnausea. He has mild GERD-like symptoms, well controlled with Prilosec. Specifically denies any issues with headaches, fever/chills, cough, shortness ofbreath, bowel/bladder problems, peripheral neuropathy, skin rash or lower extremity edema. --He will complete radiotherapy on Tuesday, September 16, 2021 and his last cycle (#6) weekly Carbo/Taxol will be given today. 08/27/2021: Here for week for follow-up of weekly carboplatin paclitaxel. Fatigue mildly increased with decreased appetite and minimal dysphagia but does not need to take additional medicine other than Tylenol for this. Otherwise no cough, dyspnea, fever, chills and no significant peripheral neuropathy. He willfollow-up in 2 weeks for chemoradiation toxicity visit with our nurse practitioner. I will then see him in 4 weeks after completion of chemoradiationand will discuss whether he gets consolidation carboplatin paclitaxel after restaging scan or continue with maintenance immunotherapy alone. 08/12/2021: Started concurrent chemoradiation with weekly Carboplatin/Paclitaxelone week ago. Tolerating well without cough, dyspnea, chest pain, bowel or bladder symptoms, or neuropathy. Will continue to follow every 2 weeks while onchemoradiation--likely candidate for one year immunotherapy with Imfinzi if response. 07/17/2021: This is a now 74 yo male accompanied by his for new diagnosis of right upper lobe mass, wrapping around right mainstem bronchus, with associated mediastinal adenopathy. He apparently had right upper lobe pneumonia in 2019, no imaging since that time. He is a former smoker, prior 40 year history, quit about 18 years ago. About 1-2 months ago he had persistent nonproductive cough without hemoptysis. Increased dyspnea, but his notes he has had chronic dyspnea over the past 4 years. Slow nonquantified weight loss, decreased appetite, hoarseness, and mild right chest discomfort. CT Chest imaging at [facility] on 06/23/2021 showed a large lobulated mass of the superior segment of the right upper lobe extending to the hilum. There appears to be invasion of the mass into the right mainstem bronchus. The mass measures approximately 5.5 x 7.6 x 6.0 cm. There is a low density lesion in the liver that appears to be a cyst. 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 He does not have other significant comorbidities, prior malignancy, or known family history. We discussed that involvement of the right mainstem bronchus and mediastinum is consistent with likely Stage III lung cancer, but he needs a PET/CT to exclude liver metastases. If no distant metastatic disease on PET/CT, we will coordinate chemoradiation with weekly carboplatin/paclitaxel. I ordered PET/CT, radiation oncology consultation and reviewed informed consent for Carboplatin/Paclitaxel. I will see him the same day as Radiation Oncology consult to review PET/CT. He did sign informed consent today to expedite concurrent chemoradiation if no distant metastatic disease. We will also contact pathology to add PDL1 status--if metastatic disease, he may be a candidate for immunotherapy +/- chemotherapy. Today we reviewed chemotherapy counseling for weekly Carboplatin and Paclitaxel. Goal of therapy is curative if stage III. Common toxicities were reviewed to include infusion reactions/allergic reactions, myelosuppression, fatigue, nausea, vomiting, constipation, diarrhea, mouth sores, and alopecia. Other toxicities may include pneumonitis, neurologic, hepatic and renal toxicities. Risk of secondary malignancy due to effects of chemotherapy on bone marrow. Thepatient signed informed consent and will follow-up as directed. Summary of Therapies Summary of Therapies: 08/06/2021: Commenced concurrent chemoradiation with Carboplatin AUC 2 IV Day 1 and Paclitaxel 45mg/m2 IV Day 1 weekly x 6 cycles. He was started on concurrent chemoradiotherapy treatment and received a dose of 6000 cGy to the right upper lobe mass and mediastinal nodes (bilateral) in 30 fractions from 08/06/2021 to 09/16/2021 over 41 elapsed days. Last cycle chemotherapy: 09/10/2021 - 09/30/2021: Cycle 1, Day 1 Durvalumab 10mg/kg IV every 2 weeks immunotherapy x 1 year. After 11/11/2021 2-week dose, changed to flat dose 1500 mg IV every 4-week dosing to complete 1 year of adjuvant immunotherapy. Last dose 09/01/2022. ~~~~~~~~~~~~~~~~~~~~~~~~~~~~~ 09/27/2024: Reviewed and signed informed consent for docetaxel and Cyramza at 100% dose. Cycle 1 day 1 10/09/24. Severe fatigue and nosebleeds with first cycle. Arthralgias secondary to growth factor support. Decreasing docetaxel to60 mg/m? IV with Ramucirumab 10 mg/kg IV 10/30/2024 for cycle 2-day 1 without growth factor support. Partial response after 3 cycles, may continue ramucirumab maintenance after 6 cycles with Taxotere Ramucirumab + docetaxel Day 1: Ramucirumab 10mg/kg IV + docetaxel 75-->60 mg/m2 IV. Repeat cycle every 3 weeks for 6 cycles then maintenance Ramucirumab alone Intake Vitals/Pain Assessment 01/23/25 10:21 01/23/25 11:18 Weight 112.945 kg 112.945 kg BP 129/87 Blood Pressure Location Lt brachial Position Sitting Temp 97.8 F Temp Source Temporal Pulse 87 Pulse Source NIBP Respiration 16 Pulse Oximetry (%) 97 Oxygen Delivery Method room air Are you having pain? No Intake Visit Reasons: f/u with cycle 6, follow up visit Accompanied by: Self Allergies No Known Drug Allergies Allergy (Unknown, Verified 01/23/25 10:25) none Home Medications - Last Reconciled 01/23/25 by SUNNI Pfeiffer acetylcysteine (NAC) 1,200 mg PO DAILY aspirin 81 mg PO DAILY benzonatate 100 mg PO TID PRN berberine chloride 1,500 mg PO DAILY carvedilol 3.125 mg PO BID docusate sodium (Colace) 200 mg PO QHS famotidine 20 mg PO DAILY fluconazole (Diflucan) 100 mg PO DAILY 30 days hydrochlorothiazide 25 mg PO DAILY 30 days losartan 25 mg PO DAILY omeprazole 40 mg PO DAILY ondansetron HCl 8 mg PO Q8HR PRN simvastatin (Zocor) 80 mg PO QHS Gastrointestinal Is the patient taking opioids for pain control?: No [place] Precaution Measures Taken: Patient in chair Nurse's Note: Patient is here today for a follow up visit and has treatment today [facility] Medical History Medical History Asbestos exposure Traction bronchiectasis History of tobacco abuse quit in 2001 Pulmonary fibrosis Non-small cell cancer of right lung Staghorn renal calculus Drug-induced pneumonitis Hyperlipidemia Hypertensive heart disease Lung mass Surgical History Surgical History History of appendectomy History of carpal tunnel release History of neck surgery Family History Family History Father Heart disease Mother Diabetes Hypertension Sister Cancer Father No problems noted. Mother No problems noted. Sister Cancer Brother Cancer Brother Cancer Brother Cancer Social History Social History Smoking status: Former smoker What tobacco products do you use: cigarettes Smoking quit date/years: >15 years ago Within the past year, how often did you have a drink containing alcohol: never AUDIT-C Alcohol total score: 0 AUDIT-C Alcohol score interpretation: A score less than 4 is consistent with normal alcohol consumption. 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 Still independent for ADLs and not requiring home oxygen. HEAD AND NECK: Negative for changes in hearing and vision. Negative for mouth ulcers, nasal congestion and nasal drainage. Positive for epistaxis--no visiblelesion on ENT evaluation. Treating with humidifying air and nasal Vaseline. Persistent hoarseness--1 week course of Diflucan prescribed 11/08/2024. Hoarseness improved cycle #2, can communicate much easier. cycle 4--recurrent hoarseness--resuming Diflucan and pending Dr. Pablo ENT eval. PULMONARY: October 2023 ER visit for dyspnea, noted early pneumonia but did notrequire admission. Intermittent right chest wall pain--unchanged. Recurrent dyspnea/cough intermittent, improved since cycle #2 of chemotherapy. Recurrent hoarseness with stable dyspnea on exertion. CARDIOVASCULAR: Negative for claudication and irregular heartbeat/palpitations. No edema. GASTROINTESTINAL: Negative for abdominal pain. Initially reports constipation after cycle #2 then has had diarrhea for 4-5 days, improving, will utilize Imodium more frequently, no nausea or vomiting. Improved appetite and improvingdysphagia/resolved odynophagia as per HPI. GENITOURINARY: Negative for dysuria and hematuria. + h/o nephrolithiasis--left kidney shows staghorn calculus on imaging but patient does not have any symptoms, primary care elected continued observation only. ENDOCRINE: Negative for cold intolerance and heat intolerance. CENTRAL NERVOUS SYSTEM: Negative for gait disturbance and headache. No history of stroke. PSYCHIATRIC: Negative for anxiety or depression. DERMATOLOGICAL: Negative for pruritus and rash. Negative for suspicious skin lesions. MUSCULOSKELETAL: Negative for back pain and bone/joint symptoms. HEMATOLOGICAL: Negative for bleeding and easy bruising. Negative for history of transfusion or thromboembolic disease ALLERGY: Negative for environmental allergies and food allergies. Physical Exam EXAM ECOG PS 2 due to fatigue, Pain 0/10 CONSTITUTIONAL: The patient appears less fatigued, in no acute distress. HEAD / FACE: Normocephalic; atraumatic, no scleral icterus. EYES: Pupils are equal and reactive to light. Conjunctivae and lids are benign in appearance. Ocular movement intact. EARS: Hearing grossly intact. NOSE / MOUTH / THROAT: Nasal exam was deferred due to recent ENT eval. Oral cavity and oropharynx white plaque lesions improved after Diflucan without aphthous ulcers or thrush. No pharyngeal inflammation. NECK / THYROID: Neck is supple. Thyroid is symmetrical, without thyromegaly, masses or palpable nodules. LYMPHATIC: No palpable cervical, supraclavicular, axillary, or inguinal adenopathy. RESPIRATORY: Normal to inspection. Lungs clear to auscultation bilaterally--prolonged expiratory phase similar to prior exams; no significant rhonchi, wheezes or rales. Nonlabored respirations CARDIOVASCULAR: Regular rate and rhythm. No murmurs, gallops, or rubs. VASCULAR: Carotid, radial, femoral and pedal pulses present bilaterally. No bruits. ABDOMEN: Bowel sounds normoactive. Soft, nontender and non-distended. No hepatosplenomegaly. No masses. INTEGUMENTARY: The skin is unremarkable. No rashes. No suspicious lesions MUSCULOSKELETAL: Normal musculature, no joint deformities or abnormalities, normal range of motion for all four extremities. EXTREMITIES: No edema, cyanosis or clubbing. NEUROLOGICAL: Alert and oriented. Cranial nerves intact. No gross motor or sensory deficits. Ambulates independently. PSYCHIATRIC: No anxiety or evidence of depression. Results - [facility] LAB RESULTS Corrected WBC 10.9 X10E3/uL (4.1-10.5) H 01/22/25:01/12 Hgb 12.2 g/dL (13.0-17.0) L 01/22/25: 5 Hct 37.1 % (38.8-50.0) L 01/22/25:01/22/25 MCV 83.9 fl (83.5-101) 01/22/25:01/22/25 RDW 19.1 % (12.0-14.8) H 01/22/25:01/22/25 Plt Count 476 x10E3/uL (150-450) H 01/22/25: Sodium 138 mmol/L (136-145) 01/22/25:01/22/25 Potassium 3.9 mmol/L (3.5-5.1) 01/22/25:01/22/25 BUN 12 mg/dL (7-25) 01/22/25:01/22/25 Creatinine 0.97 mg/dL (0.70-1.30) 01/22/25:01/22/25 Glucose 114 mg/dL (70-100) H 01/22/25 09:50 01/22/25 Est GFR (CKD-EPI) > 60.0 mL/Min 01/22/25 09:50 01/22/25 Calcium 9.0 mg/dL (8.6-10.3) 01/22/25 09:50 01/22/25 Total Bilirubin 0.3 mg/dl (0.3-1.0) 01/22/25 09:50 01/22/25 AST 20 U/L (13-39) 01/22/25 09:50 01/22/25 ALT 18 U/L (7-52) 01/22/25 09:50 01/22/25 Alkaline Phosphatase 54 U/L (34-104) 01/22/25 09:50 01/22/25 Total Protein 7.1 gm/dL (6.4-8.9) 01/22/25 09:50 01/22/25 Albumin 3.7 gm/dL (3.5-5.7) 01/22/25 09:50 01/22/25 RADIOLOGY/IMAGING RESULTS Restaging chest CT ordered in 3 weeks. 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] Procedures NM LARYNGOSCOPY W/WO TRACHEOSCOPY W/MICRO/TELESCOPE NM BRNCHSC INCL FLUOR GDNCE DX W/CELL WASHG SPX NM LARGSC W/NJX VOCAL CORD THER W/MICRO/TELESCOPE NM LARYNGOSCOPY W/BIOPSY MICROSCOPE/TELESCOPE NM LARGSC EXC JONATAN&/STRPG CORDS/EPIGL MCRSCP/TLSCP NM LARGSC W/NJX VOCAL CORD THER W/MICRO/TELESCOPE Microdirect Laryngoscopy; Bronchoscopy; KTP Laser; Biopsy Injection Microdirect Laryngoscopy; Bronchoscopy; KTP Laser; Biopsy Injection Microdirect Laryngoscopy; Bronchoscopy; KTP Laser; Biopsy Injection Microdirect Laryngoscopy; Bronchoscopy; KTP Laser; Biopsy Injection Microdirect Laryngoscopy; Bronchoscopy; KTP Laser; [place] [id number] [address] Department [place] [address] Phone: tel: fax: [facility] [place] [address] fax: Referral ID Status Reason Start Date Expiration Date Visits Re quested Visits Authorized [id number] [facility] Work Phone: Summary Purpose Family History No Family History Records Found Relationship Condition Age at Onset Recorded Date/T helena father Heart disease Unknown Not Specified Diabetes mellitus Unknown Hypertension Unknown sister Malignant neoplasm Unknown Relationship Condition Age at Onset Recorded Date/T helena father Heart disease Unknown Not Specified Diabetes mellitus Unknown Hypertension Unknown sister Malignant neoplasm Unknown Not Specified Hypertension Unknown Diabetes mellitus Unknown Relationship Condition Age at Onset Recorded Date/T helena father Heart disease Unknown mother Diabetes mellitus Unknown Hypertension Unknown sister Malignant neoplasm Unknown mother Hypertension Unknown Diabetes mellitus Unknown Relationship Condition Age at Onset Recorded Date/T helena father Heart disease Unknown mother Diabetes mellitus Unknown Hypertension Unknown sister Malignant neoplasm Unknown brother Malignant neoplasm Unknown Advance Directives No Advanced Directives Records Found Advance Directive Response Recorded Date/ Time Advance Directives No February 25, 018 10:52pm Advance Directive Response Recorded Date/ Time Advance Directives No February 25, 018 9:52pm Date Activated Date Inactivated Comments 03/22/2025 9:38 AM Question Answer Comments Plan of Care: Code Status Discussion Not Compl eted Decision Maker: Provider Rationale: Patient condition does not warra nt discussion Chief Complaint and Reason for Visit Chief Complaint labs Lung Mass Reason for Visit Chest pain Drug-induced pneumonitis Encounter for antineoplastic immunotherapy Encounter for chemotherapy management Malignant neoplasm of overlapping sites of right bronchus and lung Malignant neoplasm of upper lobe, right bronchus or lung Right-sided chest wall pain Epistaxis Radiation-induced esophagitis Chief Complaint Lung Mass Reason for Visit Chest pain Encounter for coordination of complex care Drug-induced pneumonitis Encounter for antineoplastic immunotherapy Encounter for chemotherapy management Malignant neoplasm of overlapping sites of right bronchus and lung Malignant neoplasm of upper lobe, right bronchus or lung Right-sided chest wall pain Epistaxis Radiation-induced esophagitis Chief Complaint Lung Mass Reason for Visit Chest pain Hypokalemia Drug-induced pneumonitis Encounter for antineoplastic immunotherapy Encounter for chemotherapy management Encounter for coordination of complex care Malignant neoplasm of overlapping sites of right bronchus and lung Malignant neoplasm of upper lobe, right bronchus or lung Right-sided chest wall pain Staghorn renal calculus Epistaxis Radiation-induced esophagitis Drug-induced pneumonitis Encounter for coordination of complex care Malignant neoplasm of overlapping sites of right bronchus and lung Staghorn renal calculus Chief Complaint Lung Mass lower right side back pain Reason for Visit Chest pain Hypokalemia Drug-induced pneumonitis Encounter for antineoplastic immunotherapy Encounter for chemotherapy management Encounter for coordination of complex care Malignant neoplasm of overlapping sites of right bronchus and lung Malignant neoplasm of upper lobe, right bronchus or lung Right-sided chest wall pain Staghorn renal calculus Epistaxis Radiation-induced esophagitis Drug-induced pneumonitis Encounter for coordination of complex care Malignant neoplasm of overlapping sites of right bronchus and lung Staghorn renal calculus Chief Complaint lower right side [place] k pain 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/u Radiation Pulm Fibrosis Reason for Visit History of tobacco a buse Pulmonary fibrosis Chief Complaint Follow Up Lung Mass Reason for Visit Drug-induced pneumon itis Malignant neoplasm of overlapping sites of right bronchus and lung Staghorn renal calculus Drug-induced pneumonitis Malignant neoplasm of overlapping sites of right bronchus and lung Malignant neoplasm of upper lobe, right bronchus or lung Staghorn renal calculus Epistaxis Hypokalemia Radiation-induced esophagitis Chief Complaint Admit Date Follow Up September 12, 2024 9 :03am Follow Up after PET September 27, 2024 1:01pm Lung Mass September 27, 2024 1:36pm Reason for Visit Admit Date Drug-induced pneumonitis September 12, 024 9:03am Malignant neoplasm of overla pping sites of right bronchus and lung September 12, 2024 9:03am Staghorn renal calculus September 12 9:03am Encounter for coordination of complex ca re September 12, 2024 9:03am Drug-induced pneumonitis September 27, 2024 1:01pm Malignant neoplasm of overla pping sites of right bronchus and lung September 27, 2024 1:01pm Staghorn renal calculus September 27 024 1:01pm Encounter for coordination of complex ca re September 27, 2024 1:01pm Drug-induced pneumonitis September 27, 2024 1:36pm Malignant neoplasm of overla pping sites of right bronchus and lung September 27, 2024 1:36pm Malignant neoplasm of upper lobe, right bronchus or lung September 27, 2024 1:36pm Staghorn renal calculus September 27, 024 1:36pm Epistaxis September 27, 2024 1:36pm Hypokalemia September 27, 2024 1:36pm Radiation-induced esophagitis September [id number] 1:36pm Chest pain September 27, 2024 1:36pm Encounter for antineoplastic immunothera py September 27, 2024 1:36pm Encounter for chemotherapy management No vember 2023 1:36pm Encounter for coordination of complex ca re September 27, 2024 1:36pm Right-sided chest wall pain September 1:36pm Chief Complaint Admit Date Follow Up September 12, 2024 9 :03am Follow Up after PET September 27, 2024 1:01pm Referral Order October 09, 2024 3:25pm 1 wk f/u October 17, 2024 8 :14am Referral Order October 22, 2024 1 0:31am Lung Cancer, Venous Insufficiency Decemb er 2023 10:48am 3 wk follow up November 08, 2024 2:57pm Lung Mass November 19, 2024 9: 12am Follow Up November 19, 2024 9: 29am Reason for Visit Admit Date Drug-induced pneumonitis September 12 024 9:03am Encounter for coordination of complex ca re September 12, 2024 9:03am Malignant neoplasm of overla pping sites of right bronchus and lung September 12, 2024 9:03am Staghorn renal calculus September 12 9:03am Drug-induced pneumonitis September 27, 2024 1:01pm Encounter for chemotherapy management No vember 2023 1:01pm Encounter for coordination of complex ca re September 27, 2024 1:01pm Malignant neoplasm of overla pping sites of right bronchus and lung September 27, 2024 1:01pm Staghorn renal calculus September 27, 2 024 1:01pm Drug-induced pneumonitis October 17, 024 8:14am Encounter for chemotherapy management De cem2023 8:14am Epistaxis October 17, 2024 8 :14am Malignant neoplasm of overla pping sites of right bronchus and lung October 17, 2024 8:14am Staghorn renal calculus October 17 8:14am Candidiasis of mouth and esophagus Decem shawn 2023 2:57pm Drug-induced pneumonitis November 08, 2024 2:57pm Encounter for chemotherapy management De cember 2023 2:57pm Epistaxis November 08, 2024 2:57pm Malignant neoplasm of overla pping sites of right bronchus and lung November 08, 2024 2:57pm Staghorn renal calculus November 08 2:57pm Drug-induced pneumonitis November 19 9:12am Encounter for antineoplastic immunothera py November 19, 2024 9:12am Encounter for chemotherapy management Ja nuary 2024 9:12am Encounter for coordination of complex ca re November 19, 2024 9:12am Epistaxis November 19, 2024 9: 12am Malignant neoplasm of overla pping sites of right bronchus and lung November 19, 2024 9:12am Malignant neoplasm of upper lobe, right bronchus or lung November 19, 2024 9:12am Staghorn renal calculus November 19 9:12am Hypokalemia November 19, 2024 9: 12am Radiation-induced esophagitis November 9:12am Chest pain November 19, 2024 9: 12am Right-sided chest wall pain November 19, 2024 9:12am Candidiasis of mouth and esophagus Janua ry 2024 9:29am Drug-induced pneumonitis November 19 9:29am Encounter for chemotherapy management Ja nuary 2024 9:29am Epistaxis November 19, 2024 9: 29am Malignant neoplasm of overla pping sites of right bronchus and lung November 19, 2024 9:29am Staghorn renal calculus November 19 9:29am Chief Complaint Admit Date Lung Cancer, Venous Insufficiency Decemb er 2023 10:48am 3 wk follow up November 08, 2024 2:57pm Follow Up November 19, 2024 9: 29am Follow Up after CT December 12, 2024 1 0:15am f/u with cycle 6 January 23, 2025 10: 15am Lung Mass January 23, 2025 10: 38am Reason for Visit Admit Date Candidiasis of mouth and esophagus Decem shawn 2023 2:57pm Drug-induced pneumonitis November 08, 2024 2:57pm Encounter for chemotherapy management De cember 2023 2:57pm Epistaxis November 08, 2024 2:57pm Malignant neoplasm of overla pping sites of right bronchus and lung November 08, 2024 2:57pm Staghorn renal calculus November 08, 2 024 2:57pm Candidiasis of mouth and esophagus Janua ry 2024 9:29am Diarrhea November 19, 2024 9: 29am Drug-induced pneumonitis November 19 9:29am Encounter for chemotherapy management [facility] 2024 9:29am Epistaxis November 19, 2024 9: 29am Malignant neoplasm of overla pping sites of right bronchus and lung November 19, 2024 9:29am Staghorn renal calculus November 19 9:29am Candidiasis of mouth and esophagus Janua ry 2024 10:15am Diarrhea December 12, 2024 1 0:15am Drug-induced pneumonitis December 12, 025 10:15am Encounter for chemotherapy management Ja nuary 2024 10:15am Malignant neoplasm of overla pping sites of right bronchus and lung December 12, 2024 10:15am Staghorn renal calculus December 12 10:15am Candidiasis of mouth and esophagus January 23, 2025 10:15am Diarrhea January 23, 2025 10: 15am Drug-induced pneumonitis January 23 10:15am Encounter for chemotherapy management [facility] 2024 10:15am Malignant neoplasm of overla pping sites of right bronchus and lung January 23, 2025 10:15am Staghorn renal calculus January 23, 2025 10:15am Drug-induced pneumonitis January 23 10:38am Encounter for antineoplastic immunothera py January 23, 2025 10:38am Encounter for chemotherapy management [facility] 2024 10:38am Encounter for coordination of complex ca re January 23, 2025 10:38am Epistaxis January 23, 2025 10: 38am Malignant neoplasm of overla pping sites of right bronchus and lung January 23, 2025 10:38am Malignant neoplasm of upper lobe, right bronchus or lung January 23, 2025 10:38am Staghorn renal calculus January 23, 2025 10:38am Hypokalemia January 23, 2025 10: 38am Radiation-induced esophagitis January 10:38am Chest pain January 23, 2025 10: 38am Right-sided chest wall pain January 23, 2025 10:38am Chief Complaint Admit Date 3 wk follow up November 08, 2024 2:57pm Follow Up November 19, 2024 9: 29am Follow Up after CT December 12, 2024 1 0:15am f/u with cycle 6 January 23, 2025 10: 15am Lung Mass January 23, 2025 10: 38am Est care February 05, 2025 10: 25am Reason for Visit Admit Date Candidiasis of mouth and esophagus Decem shawn 2023 2:57pm Drug-induced pneumonitis November 08, 2024 2:57pm Malignant neoplasm of overla pping sites of right bronchus and lung November 08, 2024 2:57pm Staghorn renal calculus November 08, 2 024 2:57pm Encounter for chemotherapy management De cember 2023 2:57pm Epistaxis November 08, 2024 2:57pm Candidiasis of mouth and esophagus Janua ry 2024 9:29am Drug-induced pneumonitis November 19 9:29am Malignant neoplasm of overla pping sites of right bronchus and lung November 19, 2024 9:29am Staghorn renal calculus November 19 9:29am Diarrhea November 19, 2024 9: 29am Encounter for chemotherapy management Ja nuary 2024 9:29am Epistaxis November 19, 2024 9: 29am Candidiasis of mouth and esophagus Janua ry 2024 10:15am Drug-induced pneumonitis December 12, 2 025 10:15am Malignant neoplasm of overla pping sites of right bronchus and lung December 12, 2024 10:15am Staghorn renal calculus December 12 10:15am Diarrhea December 12, 2024 1 0:15am Encounter for chemotherapy management Ja nuary 2024 10:15am Candidiasis of mouth and esophagus January 23, 2025 10:15am Drug-induced pneumonitis January 23 10:15am Malignant neoplasm of overla pping sites of right bronchus and lung January 23, 2025 10:15am Staghorn renal calculus January 23, 2025 10:15am Diarrhea January 23, 2025 10: 15am Encounter for chemotherapy management [facility] 2024 10:15am Drug-induced pneumonitis January 23 10:38am Malignant neoplasm of overla pping sites of right bronchus and lung January 23, 2025 10:38am Staghorn renal calculus January 23, 2025 10:38am Hypokalemia January 23, 2025 10: 38am Radiation-induced esophagitis January 10:38am Chest pain January 23, 2025 10: 38am Right-sided chest wall pain January 23, 2025 10:38am Encounter for antineoplastic immunothera py January 23, 2025 10:38am Encounter for chemotherapy management [facility] 2024 10:38am Encounter for coordination of complex ca re January 23, 2025 10:38am Epistaxis January 23, 2025 10: 38am Malignant neoplasm of upper lobe, right bronchus or lung January 23, 2025 10:38am Chief Complaint Admit Date Follow Up November 19, 2024 9: 29am Follow Up after CT December 12, 2024 1 0:15am f/u with cycle 6 January 23, 2025 10: 15am Est care February 05, 2025 10: 25am f/u after CT prior to tx February 13, 2025 9:15am Lung Mass February 13, 2025 9:55 am Reason for Visit Admit Date Candidiasis of mouth and esophagus Novua ry 2024 9:29am Drug-induced pneumonitis November 19 9:29am Malignant neoplasm of overla pping sites of right bronchus and lung November 19, 2024 9:29am Staghorn renal calculus November 19 9:29am Diarrhea November 19, 2024 9: 29am Encounter for chemotherapy management Ja nuary 2024 9:29am Epistaxis November 19, 2024 9: 29am Candidiasis of mouth and esophagus Janua ry 2024 10:15am Drug-induced pneumonitis December 12 2 025 10:15am Malignant neoplasm of overla pping sites of right bronchus and lung December 12, 2024 10:15am Staghorn renal calculus December 12 10:15am Diarrhea December 12, 2024 1 0:15am Encounter for chemotherapy management Ja nuary 2024 10:15am Candidiasis of mouth and esophagus January 23, 2025 10:15am Drug-induced pneumonitis January 23 10:15am Malignant neoplasm of overla pping sites of right bronchus and lung January 23, 2025 10:15am Staghorn renal calculus January 23, 2025 10:15am Diarrhea January 23, 2025 10: 15am Encounter for chemotherapy management Ma rch 2024 10:15am Candidiasis of mouth and esophagus February 13, 2025 9:15am Drug-induced pneumonitis February 13, 2025 9:15am Malignant neoplasm of overla pping sites of right bronchus and lung February 13, 2025 9:15am Staghorn renal calculus February 13, 2025 9:15am Diarrhea February 13, 2025 9:15 am Encounter for chemotherapy management Ap ril 2024 9:15am Drug-induced pneumonitis February 13, 2025 9:55am Malignant neoplasm of overla pping sites of right bronchus and lung February 13, 2025 9:55am Staghorn renal calculus February 13, 2025 9:55am Hypokalemia February 13, 2025 9:55 am Radiation-induced esophagitis February 13, 2025 9:55am Chest pain February 13, 2025 9:55 am Right-sided chest wall pain February 13 025 9:55am Encounter for antineoplastic immunothera py February 13, 2025 9:55am Encounter for chemotherapy management Ap ril 2024 9:55am Encounter for coordination of complex ca re February 13, 2025 9:55am Epistaxis February 13, 2025 9:55 am Malignant neoplasm of upper lobe, right bronchus or lung February 13, 2025 9:55am Chief Complaint Admit Date Follow Up after CT December 12, 2024 1 0:15am f/u with cycle 6 January 23, 2025 10: 15am Est care March 25th, 2025 10: 25am f/u after CT prior to tx February 13, 2025 9:15am Lung Mass February 13, 2025 9:55 am [id number] February 21, 2025 10: 49am Reason for Visit Admit Date Candidiasis of mouth and esophagus Gagan ry 2024 10:15am Diarrhea December 12, 2024 1 0:15am Drug-induced pneumonitis December 12 025 10:15am Encounter for chemotherapy management Ja nuary 2024 10:15am Malignant neoplasm of overla pping sites of right bronchus and lung December 12, 2024 10:15am Staghorn renal calculus December 12 10:15am Candidiasis of mouth and esophagus January 23, 2025 10:15am Diarrhea January 23, 2025 10: 15am Drug-induced pneumonitis January 23 10:15am Encounter for chemotherapy management Ma rch 2024 10:15am Malignant neoplasm of overla pping sites of right bronchus and lung January 23, 2025 10:15am Staghorn renal calculus January 23, 2025 10:15am Candidiasis of mouth and esophagus February 13, 2025 9:15am Diarrhea February 13, 2025 9:15 am Drug-induced pneumonitis February 13, 2025 9:15am Encounter for chemotherapy management Ap ril 2024 9:15am Malignant neoplasm of overla pping sites of right bronchus and lung February 13, 2025 9:15am Staghorn renal calculus February 13, 2025 9:15am Drug-induced pneumonitis February 13, 2025 9:55am Encounter for chemotherapy management Ap ril 2024 9:55am Malignant neoplasm of overla pping sites of right bronchus and lung February 13, 2025 9:55am Staghorn renal calculus February 13, 2025 9:55am Hypokalemia February 13, 2025 9:55 am Radiation-induced esophagitis February 13, 2025 9:55am Chest pain February 13, 2025 9:55 am Right-sided chest wall pain February 13 9:55am Encounter for antineoplastic immunothera py February 13, 2025 9:55am Encounter for coordination of complex ca re February 13, 2025 9:55am Epistaxis February 13, 2025 9:55 am Malignant neoplasm of upper lobe, right bronchus or lung February 13, 2025 9:55am Additional Source Comments (unrecognized sect ion and content) No Status Records FoundNo Status Records FoundNo Status Records FoundNo Status Records FoundNo Status Records FoundNo Status Records Found INFORMATION SOURCE (unrecogn ized section and content) DATE CREATED AUTHOR 06/27/2021 [facility] DATE CREATED AUTHOR AUTHOR'S ORGANIZ ATION 07/03/2021 [facility] DATE CREATED AUTHOR AUTHOR'S ORGANIZ ATION 12/12/2024 [facility] EPIC DATE CREATED AUTHOR AUTHOR'S ORGANIZ ATION 04/02/2025 [facility] DATE CREATED AUTHOR AUTHOR'S ORGANIZ ATION 04/20/2025 [facility] DATE CREATED AUTHOR AUTHOR'S ORGANIZ ATION 04/25/2025 [facility] Care Teams (unrecognized sec tion and content) Team Status: Active Member Role Status Dates Elvia Sprague DO Primary Care Provider Active Team Status: Inactive Member Role Status Dates Howie Smith DO Primary Care Provider Active St art: November 08, 2024 End: November 08, 2024 Ntaacha Hess MD Attending Provider Active Start: November 08, 2024 End: November 08, 2024 Team Status: Inactive Member Role Status Dates Howie Smith DO Primary Care Provider Active St art: November 19, 2024 End: November 19, 2024 Mari Diaz APRN Attending Provider Active Start: November 19, 2024 End: November 19, 2024 Team Status: Inactive Member Role Status Dates Howie Smith DO Primary Care Provider Active St art: December 12, 2024 End: December 12, 2024 Natacha Hess MD Attending Provider Active Start: December 12, 2024 End: December 12, 2024 Team Status: Inactive Member Role Status Dates Howie Smith DO Primary Care Provider Active St art: January 23, 2025 End: January 23, 2025 Natacha Hess MD Attending Provider Active Start: January 23, 2025 End: January 23, 2025 Team Status: Active Member Role Status Dates Natacha Hess MD Attending Provider Active Start: January 23, 2025 Alicia Ann MD Referring Provider Active Star t: January 23, 2025 Elvia B Sprague , DO Primary Care Provider Active Start: January 23, 2025 Team Status: Inactive Member Role Status Dates Elvia Sprague DO Primary Care Provi christine, Attending Provider Active Start: February 05, 2025 End: February 05, 2025 Team Status: Active Member Role Status Dates Howie Smith DO Primary Care Provider Active Team Status: Inactive Member Role Status Lakia Smith DO Primary Care Provider Active St art: March 12, 2024 End: March 12, 2024 Mireya Oliveira [facility] Emergency Provider Active Start: March 12, 2024 End: March 12, 2024 Team Status: Inactive Member Role Status Dates Howie Smith DO Primary Care Provider Active St art: June 07, 2024 End: June 07, 2024 Kenji Valencia DO Attending Provider Active St art: June 07, 2024 End: June 07, 2024 Team Status: Inactive Member Role Status Dates Howie Smith DO Primary Care Provider, Attending Prov ider Active Team Status: Active Member Role Status Lakia Smith DO Primary Care Provider Active Natacha Hess MD Attending Provider Active Alicia Ann MD Referring Provider Active Samantha Lo MD Active Team Status: Active Member Role Status Lakia Smith DO Primary Care Provider Active Natacha Hess MD Attending Provider Active Alicia Ann MD Referring Provider Active Team Status: Active Member Role Status Dates Provider Conversion Attending Provider Active St art: December 12, 2023 Team Status: Active Member Role Status Dates Howie Smith DO Primary Care Provider Active St art: March 08, 2024 Natacha Hess MD Attending Provider Active Start: March 08, 2024 Alicia Ann MD Referring Provider Active Star t: March 08, 2024 Team Status: Inactive Member Role Status Dates Howie Smith DO Primary Care Provider Active St art: March 08, 2024 End: March 08, 2024 Natacha Hess MD Attending Provider Active Start: March 08, 2024 End: March 08, 2024 Team Status: Inactive Member Role Status Dates Howie Smith DO Primary Care Provider Active St art: September 12, 2024 End: September 12, 2024 Natacha Hses MD Attending Provider Active Start: September 12, 2024 End: September 12, 2024 Team Status: Active Member Role Status Dates Howie Smith DO Primary Care Provider Active St art: September 12, 2024 Natacha Hess MD Attending Provider Active Start: September 12, 2024 Alicia Ann MD Referring Provider Active Star t: September 12, 2024 Team Status: Inactive Member Role Status Dates Howie Smith DO Primary Care Provider Active St art: September 27, 2024 End: September 27, 2024 Natacha Hess MD Attending Provider Active Start: September 27, 2024 End: September 27, 2024 Team Status: Active Member Role Status Dates Howie Smith DO Primary Care Provider Active St art: September 27, 2024 Natacha Hess MD Attending Provider Active Start: September 27, 2024 Alicia Ann MD Referring Provider Active Star t: September 27, 2024 Volunteer Services Coordinator Relationship Specialty Start Date End Date Howie Smith MD [address] [place] [id number] PCP - General Family Medicine 10/10/24 Volunteer Services Coordinator Relationship Specialty Start Date End Date Howie Smith MD [address] [place] [id number] PCP - General Family Medicine 10/10/24 Volunteer Services Coordinator Relationship Specialty Start Date End Date Howie Smith MD [address] [place] [id number] PCP - General Family Medicine 10/10/24 Volunteer Services Coordinator Relationship Specialty Start Date End Date Howie Smith MD [address] [place] [id number] PCP - General Family Medicine 10/10/24 Volunteer Services Coordinator Relationship Specialty Start Date End Date Howie Smith MD [address] [place] [id number] PCP - General Family Medicine 10/10/24 Volunteer Services Coordinator Relationship Specialty Start Date End Date Howie Smith MD [address] [place] [id number] PCP - General Family Medicine 10/10/24 Volunteer Services Coordinator Relationship Specialty Start Date End Date Howie Smith MD [address] [place] [address] [id number] PCP - General Family Medicine 10/10/24 Volunteer Services Coordinator Relationship Specialty Start Date End Date Howie Smith MD [address] [place] [address] [id number] PCP - General Family Medicine 10/10/24 Volunteer Services Coordinator Relationship Specialty Start Date End Date Howie Smith MD [address] [place] [address] [id number] PCP - General Family Medicine 10/10/24 Volunteer Services Coordinator Relationship Specialty Start Date End Date Howie Smith MD [address] [place] [address] [id number] PCP - General Family Medicine 10/10/24 Team Status: Active Member Role Status Dates Howie Smith DO Primary Care Provider Active St art: October 09, 2024 Natacha Hess MD Attending Provider Active Start: October 09, 2024 Team Status: Inactive Member Role Status Dates Howie Smith DO Primary Care Provider Active St art: October 17, 2024 End: October 17, 2024 Natacha Hess MD Attending Provider Active Start: October 17, 2024 End: October 17, 2024 Team Status: Active Member Role Status Dates Howie Smith DO Primary Care Provider Active St art: October 22, 2024 Natacha Hess MD Attending Provider Active Start: October 22, 2024 Team Status: Inactive Member Role Status Dates Howie Smith DO Primary Care Provider Active St art: October 25, 2024 End: October 25, 2024 Wilmer Mckeon MD Attending Provider Active Sta rt: October 25, 2024 End: October 25, 2024 Team Status: Active Member Role Status Dates Howie Smith DO Primary Care Provider Active St art: November 19, 2024 Natacha Hess MD Attending Provider Active Start: November 19, 2024 Alicia Ann MD Referring Provider Active Star t: November 19, 2024 Volunteer Services Coordinator Relationship Specialty Start Date End Date Howie Smith MD [address] [place] [address] PCP - General Family Medicine 10/10/24 Team Status: Active Member Role Status Dates Howie Smith DO Primary Care Provider Active St art: December 12, 2024 Natacha Hess MD Attending Provider Active Start: December 12, 2024 Alicia Ann MD Referring Provider Active Star t: December 12, 2024 Team Status: Active Member Role Status Dates Howie Smith DO Primary Care Provider Active St art: January 23, 2025 Natacha Hess MD Attending Provider Active Start: January 23, 2025 Alicia Ann MD Referring Provider Active Star t: January 23, 2025 Team Status: Inactive Member Role Status Dates Natacha Hess MD Attending Provider Active Start: February 13, 2025 End: February 13, 2025 Elvia Sprague DO Primary Care Provider Active Start: February 13, 2025 End: February 13, 2025 Team Status: Active Member Role Status Dates Natacha Hess MD Attending Provider Active Start: February 13, 2025 Alicia Ann MD Referring Provider Active Star t: February 13, 2025 Elvia Sprague DO Primary Care Provider Active Start: February 13, 2025 Team Status: Inactive Member Role Status Dates Elvia Sprague DO Primary Care Provider Active Start: February 21, 2025 End: February 21, 2025 Shoshana Pablo MD Attending Provider Active S tart: February 21, 2025 End: February 21, 2025 Goals (unrecognized section and content) Goals may be documented in a n alternate sectionGoals may be documented in an alternate sectionGoals may be documented in an alternate sectionNo InformationNo InformationGoals may be documented in an alternate sectionNo InformationNo InformationGoals may be documented in an alternate sectionNo InformationGoals may be documented in an alternate sectionGoals may be documented in an alternate sectionGoals may be documented in an alternate sectionGoals may be documented in an alternate sectionGoals may be documented in an alternate section REASON FOR VISIT (unrecogniz ed section and content) Reason Comments Consult Port Placement- Ref Natacha ReeseLung cancer, venous insufficiency Reason Comments 1st po port placement Reason Comments Epistaxis (Nose Bleed) Reason Comments Epistaxis (Nose Bleed) 6 weeks check Scheduled Active and Recently Administ ered Medications (unrecognized section and content) Medication Order 03/20/2025 03/21/2025 03/22/2025 lidocaine PF (Xylocaine) 10 mg/mL (1 %) injection 1 mg 1 mg (0.1 mL), subcutaneous, Once, On Tue03/22/25 at 1215, For 1 dose, Recovery (only), To be used for IV insertion ONLY 1215 (Due) oxygen (O2) therapy inhalation, Continuous - , First dose on Tue03/22/25 at 1215, Recovery (only), Device: Nasal Cannula, Rate in liters per minute: 3 LPM, Keep O2 Sat Above: 92% 1200 (Rate Verify Me dical Gas - Provider: Masha Plaza, RN)1210 (Stopped - Provider: Reema Vasquez RN)1215 (Due) PRN Medication Order 03/20/2025 03/21/2025 03/22/2025 dexAMETHasone (Decadron) injection (CANCELED) As needed, Starting on Tue03/22/25 at 1059, Intraprocedure 1059 (Given - Provid er: Shoshana Pablo MD - Comment: THROAT - SEE PHYSICIAN NOTES) HYDROmorphone (Dilaudid) injection 0.2 mg 0.2 mg, intravenous, Every 5 min PRN, pain moderate (4-6), first line, Starting on Tue03/22/25 at 1157, Recovery (only), Max total of 4 mg regardless of dose. HYDROmorphone (Dilaudid) injection 0.5 mg 0.5 mg, intravenous, Every 5 min PRN, pain severe (7-10), first line, Starting on Tue03/22/25 at 1157, Recovery (only), Max total of 4 mg regardless of dose. meperidine PF (Demerol) injection 12.5 mg 12.5 mg, intravenous, Every 10 min PRN, shivering, Starting on Tue03/22/25 at 1157, Recovery (only) metoclopramide (Reglan) injection 10 mg 10 mg, intravenous, Once as needed, nausea/vomiting, second line, Starting on Tue03/22/25 at 1157, For 1 dose, Recovery (only) ondansetron (Zofran) injection 4 mg 4 mg, intravenous, Once as needed, nausea/vomiting, first line, Starting on Tue03/22/25 at 1157, For 1 dose, Recovery (only), When administering via IV Push, administer over 3-5 minutes. oxyCODONE (Roxicodone) immediate release tablet 5 mg 5 mg, oral, Every 4 hours PRN, pain mild (1-3), first line, Starting on Tue03/22/25 at 1157, Recovery (only), When able to take oral medications., If ordered PRN for pain, nurse is permitted to administer this medication for higher pain scores based on patient preference? Yes sodium chloride 0.9 % irrigation solution (CANCELED) As needed, Starting on Tue03/22/25 at 1100, Intraprocedure 1100 (Given - Provid er: Shoshana Pablo MD - Comment: WARM POUR TO FIELD) FOR RECORDS PERTAINING TO PATIENTS WHO ARE OR HAVE BEEN ENROLLED IN A CHEMICAL DEPENDENCY/SUBSTANCEABUSE PROGRAM, SOME INFORMATION MAY BE OMITTED. This clinical summary was aggregated from multiple sources. Caution should be exercised in using it in the provision of clinical care. This summary normalizes information from multiple sources, and as a consequence, information in this document may materially change the coding, format and clinical context of patient data. In addition, data may be omitted in some cases. CLINICAL DECISIONS SHOULD BE BASED ON THE PRIMARY CLINICAL RECORDS. [employer] provides no warranty or guarantee of the accuracy or completeness of information in this document.
--- NOTE | 2025-04-30 01:49 | ECG_ITS ---
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
--- NOTE | 2025-04-30 01:49 | XR_ITS ---
The [address] [address] Patient Name: ZEFERINO GOTTLIEB MRN: [id number] date: 1950 Sex: M Assigned Patient Location: ED.MAIN Current Patient Location: Accession/Order Number: [id number] Exam Date: 04/30/2025 07:51 Report Date: 04/30/2025 07:57 At the request of: MONROE RAZO MD Procedure: XR chest 2V Plain film chest Single view HISTORY: Shortness of breath. History of lung cancer COMPARISON: 03/23/2019 FINDINGS: SUPPORT DEVICES: None POSTSURGICAL CHANGES: [id number] tip overlies the proximal SVC. Cervical spine fixation hardware redemonstrated. HEART: Within normal limits PULMONARY JERRY: Within normal limits MEDIASTINUM: Unremarkable LUNGS AND PLEURA: Interval development of right pleural-parenchymal changes with volume loss. This includes a apical pleural-parenchymal thickening. The left mid scarring/atelectasis. Findings could be related to patient's history of lung cancer therapy. There are no pneumothorax. BONY STRUCTURES: Intact ADDITIONAL FINDINGS None XR/XR chest 2V IMPRESSION: Interval development of right pleural-parenchymal changes and left midlung scarring/atelectasis. The findings could be related to therapy for lung cancer. Underlying acute findings not excluded. Impression dictated by: Joesph Cleary M.D. 04/30/2025 7:57 AM Dictation Location: [place] [address] Electronically authenticated by: [id number] Date: 04/30/2025 07:57
--- NOTE | 2025-04-30 01:50 | ED.SOB1 ---
HPI - SOB/Dyspnea General Chief Complaint: Shortness of Breath/Dyspnea Stated Complaint: trouble breathing Time Seen by Provider: 04/30/25 01:30 Source: patient Mode of arrival: walk-in Limitations: no limitations History of Present Illness HPI Narrative: This 74-year-old male with a history of lung cancer who underwent therapy in the past and then had recurrence of the lung cancer presents for evaluation of cough, wheezing and shortness of breath. He states the symptoms have been present for approximately 1 month. He does not use an inhaler or nebulizer. He denies any chest pain or fever. He did have a chemotherapy treatment last Tuesday. He states he is getting chemotherapy every 3 weeks. He states after about of chemotherapy he is sick for approximately 2 weeks and starts to feel better and then has the next round of chemo. He has also had polyps removed from his vocal cords/larynx. He denies any abdominal pain. He has no lower extremity pain or swelling. He denies a history of cardiac disease or heart failure. He no longer smokes. His oncologist is Natacha Hess Related Data Home Medications ?Medication ?Instructions ?Recorded ?Confirmed carvedilol 3.125 mg tablet 3.125 mg PO BID 10/27/23 10/27/23 hydrochlorothiazide 25 mg tablet 25 mg PO DAILY 10/27/23 10/27/23 losartan 25 mg tablet 25 mg PO DAILY 10/27/23 10/27/23 potassium chloride 20 mEq 20 meq PO DAILY 10/27/23 10/27/23 tablet,extended release(part/cryst) (Klor-Con M) simvastatin 80 mg tablet 80 mg PO DAILY 10/27/23 10/27/23 Allergies Allergy/AdvReac Type Severity Reaction Status Date / Time No Known Drug Allergies Allergy Verified 04/30/25 01:36 Review of Systems ROS Status of ROS 10 or more systems reviewed and unremarkable except as noted in history and below PFSH PFSH Social History Smoking status: Former smoker Little interest or pleasure in doing things: not at all Feeling down, depressed, or hopeless: not at all Exam Narrative Exam Narrative: Vital signs and Nursing Notes reviewed: Patient is afebrile with a normal pulse, normal blood pressure, he is not hypoxic with pulse ox of 94% on room air, he is improved to 97% on 2 L nasal cannula General: Awake, alert, oriented, audible rhonchi and expiratory wheezing noted-breath sounds appear to be coming from the upper airway 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 Neck: Supple, no JVD Chest: Diffuse bilateral inspiratory and expiratory rhonchi and wheezing, scattered rales, no accessory muscle use, patient is speaking in 3-4 word sentences CVS: Regular rate and rhythm S1-S2, no murmurs rubs or gallops, pulses are brisk and equal bilaterally ABD: Soft, nondistended, nontender, no rebound guarding or rigidity, bowel sounds are normal, no pulsatile masses appreciated Extremities: Moving all extremities, no lower extremity tenderness or swelling noted, negative Homans' sign, pulses are brisk and equal bilaterally Skin: Normal in appearance without rash,pallor, petechiae or purpura Neuro: No focal deficits Constitutional Vital Signs, click to edit/add: Last Vital Signs Temp 98.4 F 04/30/25 01:36 Pulse 87 04/30/25 03:50 Resp 15 04/30/25 03:50 BP 115/77 04/30/25 03:30 Pulse Ox 97 04/30/25 03:50 O2 Del Method Room Air 04/30/25 02:47 Course Vital Signs Vital signs: Vital Signs Pulse Oximetry 96 04/30/25 01:35 Temperature 98.4 F 04/30/25 01:36 Pulse Rate 87 04/30/25 03:50 Respiratory Rate 15 04/30/25 03:50 Blood Pressure 115/77 04/30/25 03:30 Pulse Oximetry 97 04/30/25 03:50 Oxygen Delivery Method Room Air 04/30/25 02:47 MDM - SOB/Dyspnea MDM Narrative Medical decision making narrative: This 74-year-old male with a history of lung cancer but denies a history of COPD presents for evaluation of cough, wheezing and shortness of breath. The symptoms been ongoing for approximately 1 month. He states he cannot sleep due to the difficulty he is having breathing. 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 He states that the cancer that he has now has spread into his bronchioles. This is likely the etiology of his symptoms now with diffuse rhonchi and wheezing. He is not having any chest pain. Does not have a history of heart disease. He does not use a CPAP or BiPAP machine. The patient's vital signs are stable with a slight decrease in his pulse ox of 94%. He was given IV Solu-Medrol, IV magnesium and a DuoNeb treatment with clinical improvement. A cardiac workup was ordered due to his complaint of shortness of breath. He has a normal EKG. He has a normal white count and hemoglobin. Electrolytes are normal. Troponin and BNP are both normal. Two-view chest x-ray was ordered and is similar to the x-ray he had in 2013. The patient states the cancer that he has now is behind the cancer that he had in the past and I can likely not see it on the x-ray. He is followed closely by his oncologist and family physician. He is scheduled in the next several weeks for a repeat CT scan and reevaluation to see whether or not the chemotherapy is working for him. The patient does not have any inhalers or nebulizer or nebulizer medication. He will be discharged home with a prescription for albuterol MDI to use as needed for rescue inhaler and a prescription for a nebulizer and DuoNeb medication was given to him at the time of discharge. Lab Data Labs: Lab Results 04/30/25 Range/Units 02:15 WBC 10.3 (4.0-11.0) 10^3/uL RBC 4.83 (4.70-6.10) 10^6/uL Hgb 13.7 L (14.0-18.0) g/dL Hct 42.0 (42.0-54.0) % MCV 87.0 (80.0-94.0) fL MCH 28.4 (25.9-34.0) pg MCHC 32.6 (29.9-35.2) g/dL RDW 18.9 H (11.0-15.0) % Plt Count 336 (150-450) 10^3/uL MPV 9.6 (9.5-13.5) fL Neut % (Auto) 69.6 (43.0-75.0) % Lymph % (Auto) 18.7 L (20.5-60.0) % Taliaferro % (Auto) 10.3 (1.7-12.0) % Eos % (Auto) 0.8 L (0.9-7.0) % Baso % (Auto) 0.3 (0.2-2.0) % Neut # (Auto) 7.2 H (1.4-6.5) 10^3/uL Lymph # (Auto) 1.9 (1.2-3.8) 10^3/uL Taliaferro # (Auto) 1.1 H (0.3-0.8) 10^3/uL Eos # (Auto) 0.1 (0.0-0.7) 10^3/uL Baso # (Auto) 0.0 (0.0-0.1) 10^3/uL Abs Immat Gran (auto) 0.03 (0.00-0.03) 10^3/uL Imm/Tot Granulo (auto) 0.3 (0.0-0.5) % Sodium 135 L (136-145) mmol/L Potassium 4.2 (3.5-5.1) mmol/L Chloride 100 (98-107) mmol/L Carbon Dioxide 27.7 (21.0-32.0) mmol/L Anion Gap 11.5 BUN 22.0 H (7.0-18.0) mg/dL Creatinine 1.22 (0.70-1.30) mg/dL Est GFR ( Amer) >60 (>=60 mL/min/1.73m^2) Est GFR (Non-Af Amer) 58 L (>=60 mL/min/1.73m^2) BUN/Creatinine Ratio 18.0 Glucose 112 H (74-106) mg/dL Calcium 9.7 (8.5-10.1) mg/dL Total Bilirubin 0.4 (0.2-1.0) mg/dL AST 16 (15-37) U/L ALT 30 (16-63) U/L Alkaline Phosphatase 61 (46-116) U/L Troponin I High Sens 8.5 (4.0-76.1) pg/mL NT-Pro-B Natriuret Pep 28.0 (<=900.0) pg/mL Total Protein 7.2 (6.4-8.2) g/dL Albumin 3.0 L (3.4-5.0) g/dL Globulin 4.2 g/dL Albumin/Globulin Ratio 0.7 ECG Data Attestation: I personally reviewed and interpreted this ECG as follows: (Sinus rhythm at 90 bpm, nonspecific ST changes, normal axis, interpretation limited by patient movement, no acute ST segment elevation or T wave inversion,) Discharge Plan Discharge Chief Complaint: Shortness of Breath/Dyspnea Clinical Impression: Breath shortness, Lung cancer Patient Disposition: Home, Self-Care Time of Disposition Decision: 03:45 Condition: Good Prescriptions / Home Meds: No Action carvedilol 3.125 mg tablet 3.125 mg PO BID hydrochlorothiazide 25 mg tablet 25 mg PO DAILY losartan 25 mg tablet 25 mg PO DAILY potassium chloride [Klor-Con M20] 20 mEq tablet,ER particles/crystals 20 meq PO DAILY simvastatin 80 mg tablet 80 mg PO DAILY Print Language: Hungarian Instructions: How to Use a Nebulizer (ED), How to Use a Metered-Dose Inhaler and a Spacer (ED), Shortness of Breath (ED) Referrals: Elvia Sprague DO [Primary Care Provider] - 1 week
[2025-04-30 02:23] LABS: Basophils Percent Auto 0.3 % (0.2-2.0); Eosinophils Absolute Auto 0.1 10^3/uL (0.0-0.7); Eosinophils Percent Auto 0.8 % (0.9-7.0); Hemoglobin 13.7 g/dL (14.0-18.0); Immature Granulocytes Abs Auto 0.03 10^3/uL (0.00-0.03); Immature Granulocytes Pct Auto 0.3 % (0.0-0.5); Lymphocytes Absolute Auto 1.9 10^3/uL (1.2-3.8); Lymphocytes Percent Auto 18.7 % (20.5-60.0); Mean Corpuscular HGB Conc 32.6 g/dL (29.9-35.2); Mean Corpuscular Hemoglobin 28.4 pg (25.9-34.0); Mean Platelet Volume 9.6 fL (9.5-13.5); Monocytes Absolute Auto 1.1 10^3/uL (0.3-0.8); Monocytes Percent Auto 10.3 % (1.7-12.0); Neutrophils Absolute Auto 7.2 10^3/uL (1.4-6.5); Neutrophils Percent Auto 69.6 % (43.0-75.0); Platelet Count 336 10^3/uL (150-450); Red Blood Count 4.83 10^6/uL (4.70-6.10); Red Cell Distribution Width 18.9 % (11.0-15.0); White Blood Count 10.3 10^3/uL (4.0-11.0)
[2025-04-30] MEDS: METHYLPREDNISOLONE SOD SUCC PF 125 MG/2 ML VIAL IVP (02:24)
[2025-04-30] MEDS: MAGNESIUM SULFATE IN WATER 2 GM/50 ML PREMIX IV (02:25)
[2025-04-30] MEDS: IPRATROPIUM/ALBUTEROL SULFATE 3 ML AMPUL.NEB IH (02:27)
[2025-04-30 02:42] LABS: Alanine Aminotransferase 30 U/L (16-63); Albumin Globulin Ratio 0.7; Alkaline Phosphatase 61 U/L (46-116); Anion Gap 11.5; Aspartate Amino Transferase 16 U/L (15-37); Bilirubin Total 0.4 mg/dL (0.2-1.0); Calcium 9.7 mg/dL (8.5-10.1); Carbon Dioxide 27.7 mmol/L (21.0-32.0); Chloride 100 mmol/L (98-107); Estimated GFR (African America >60 (>=60 mL/min/1.73m^2); Estimated GFR (Non-African Ame 58 (>=60 mL/min/1.73m^2); Globulin 4.2 g/dL; Glucose 112 mg/dL (74-106); Potassium 4.2 mmol/L (3.5-5.1); Sodium 135 mmol/L (136-145); Total Protein 7.2 g/dL (6.4-8.2)
[2025-04-30 02:47] LABS: Troponin I High Sensitivity 8.5 pg/mL (4.0-76.1)
[2025-04-30] MEDS: ALBUTEROL SULFATE 200 PUFF/6.7 GM INHALER IH (04:03)
[2025-04-30] MEDS: HEPARIN SODIUM (PORCINE) PF LOCK FLUSH 500 UNIT/5 ML SYRINGE IV (04:04)
--- NOTE | 2025-04-30 04:13 | PC.NURSE ---
i gave this patient verbal and written discharge orders along with 1 take home medication and 3 Rx and this patient voices yes to understanding these. at time of discharge this patient and his voices no concerns and this patient shows no signs of disstress
== END 2025-04-30 04:13 | disposition home or self-care (01) ==
PROVIDERS: Emergency Provider Emergency Medicine; PCP Student in an Organized Health Care Education/Training Program
DX: R06.02 Shortness of breath (principal); Z85.118 Personal history of other malignant neoplasm of bronchus and lung; R91.8 Other nonspecific abnormal finding of lung field; R05.9 Cough, unspecified; R06.2 Wheezing
CPT/HCPCS: 36415; 71046; 80053; 83880; 84484; 85025; 93005; 94640; 96365; 96375; 99285; J1642; J2919; J3475